=== PATIENT | male | born 1945 | race Caucasian/White ===

== ENCOUNTER 2024-02-11 01:06 | Inpatient (IN) | payer MEDICARE, OTHER ==
[2024-02-11] VITALS (57 sets, daily range): BP systolic 87–129; BP diastolic 42–71; PULSE 62–99; RESP 15–24; TEMP 98.1–99.2; O2SAT 92–100
[~2024-02-11] VITALS: Ht 175.3 cm; Wt 117.9 kg
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
[2024-02-11] MEDS: HALOPERIDOL LACTATE 5 MG/ML INJ VIAL IM ONE (01:51)
[2024-02-11 02:32] LABS: Basophils # (auto) 0.1 10 ^3/uL (0-0.2); Basophils % (auto) 0.6 % (0.0-2.0); Eosinophils # (auto) 0.2 10 ^3/uL (0-0.8); Eosinophils % (auto) 2.3 % (0.0-7.0); Hematocrit 46.2 % (41.0-53.0); Hemoglobin 15.1 g/dL (13.5-17.5); Lymphocytes # (auto) 1.6 10 ^3/uL (0.4-5.4); Lymphocytes % (auto) 16.2 % (10.0-50.0); Mean Corpuscular Hgb Conc. 32.7 g/dL (32.0-36.0); Mean Corpuscular Volume 91.8 fL (80.0-100.0); Monocytes # (auto) 0.6 10 ^3/uL (0-1.3); Monocytes % (auto) 5.8 % (0.0-12.0); Neutrophils # (auto) 7.6 10 ^3/uL (1.6-8.6); Neutrophils % (auto) 75.1 % (37.0-80.0); Nucleated Red Blood Cells % 0.1 %; Platelet Count (auto) 356 10^3/uL (140-450); Red Blood Cells 5.03 10^6/uL (4.5-5.90); White Blood Cell 10.1 10^3/uL (4.4-10.8)
--- NOTE | 2024-02-11 02:45 | DVH ---
Examination: CXRP Clinical Indication: ams Comparison: None. Technique: Frontal radiograph of the chest was obtained. Findings: Inhomogeneous radiopacities in left lower lung, suggestive of patchy consolidation. Prominent bronchovascular markings in both lungs. No pleural effusion on either side in current study. There is no pneumothorax. No evidence of cardiomegaly. No acute osseous abnormality is seen. Impression: Patchy consolidation in the left lower lobe. Electronically Signed 02/11/2024 02:37 Rudy Dimas
[2024-02-11 02:54] LABS: Chloride 104 mmol/L (98-107); Potassium 4.6 mmol/L (3.5-5.1); Sodium 137 mmol/L (136-145)
[2024-02-11 02:55] LABS: Anion Gap 4 (5-15); Carbon Dioxide 29 mmol/L (20-31)
[2024-02-11 02:56] LABS: Calcium 9.3 mg/dL (8.7-10.4)
[2024-02-11 03:00] LABS: BUN/Creatinine Ratio 7.4 (10.0-20.0); Blood Urea Nitrogen 9 mg/dL (9-23); Glucose 167 mg/dL (74-106)
[2024-02-11] MEDS ORDERED: VANCOMYCIN 1GM/250ML KIT 200 ML IV ONE (03:00)
--- NOTE | 2024-02-11 03:02 | DVH ---
Critical Findings Examination: HWOCT CLINICAL INDICATION: ams COMPARISON: None. CONTRAST USED: None. TECHNIQUE: The examination was performed obtaining 5 mm slices without contrast. CT scan was done a ccording to ALARA (As Low as Reasonably Achievable). Multiplanar reconstructions were obtained. FINDINGS: Limited evaluation due to motion artifacts. SUPRATENTORIAL BRAIN: Cerebral Hemispheres: There is no midline shift or mass effect, intra or extra-axial fluid collections or hemorrhage. Prominent sulcal - gyral pattern and cisternal spaces in both cerebral hemispheres, suggestive of cer ebral atrophy, likely age-related. Periventricular White Matter/Basal Ganglia: No abnormal areas of altered attenuation within the basal ganglia. Diffuse hypodensities noted in periventricular deep white matter of bilateral cerebral hemispheres, s uggestive of chronic periventricular ischemic changes. POSTERIOR FOSSA: Well-defined hypodensity of approximate size 10 x 8 mm in the simon on the left side, concerning for a cute infarct. Prominent cerebellar folia suggestive of cerebellar atrophy, likely age-related. VENTRICULAR SYSTEM: The ventricular system is normal in size. There is no evidence of hydrocephalus or transependymal flow of cerebrospinal fluid. SKULL BASE AND PARASELLAR REGION:The skull base is normal with no parasellar masses or abnormalities identified. CALVARIUM AND SCALP REGION: No abnormality is seen. PARANASAL SINUSES: No significant inflammatory changes are identified in the visualized paranasal sinuses. IMPRESSION: 1. Well-defined hypodensity of approximate size 10 x 8 mm in the simon on the left side, concerning f or acute infarct. 2. Chronic periventricular ischemic changes. 3. Cerebral and cerebellar atrophy, likely age-related. 4. Chronic and / or ancillary findings as described above. 5. Advised further evaluation with MRI brain without contrast. Electronically Signed 02/11/2024 02:55 Rudy Dimas
[2024-02-11] MEDS: AZITHROMYCIN 500MG/ 250ML 250 ML IV ONE (03:36)
[2024-02-11] MEDS: VANCOMYCIN 1GM/250ML KIT 200 ML IV SCH (03:40)
[2024-02-11] MEDS: LORazepam 2MG/ML-1ML VIAL IV ONE (05:30)
[2024-02-11] MEDS: CEFEPIME 2GM/50ML NS 50 ML IV ONE (05:39)
--- NOTE | 2024-02-11 06:33 | ECG ---
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
[2024-02-11] MEDS: MAGNESIUM SULFATE 1GM/100ML 100 ML IV ONE (08:08)
[2024-02-11 08:48] LABS: Urine Bacteria None Seen /hpf (None Seen)
[2024-02-11 09:06] LABS: Urine Blood Negative /uL (Negative); Urine Clarity Clear (Clear); Urine Color Light-Yellow (Yellow); Urine Protein, UAD Negative (Negative); Urine Specific Gravity 1.012 (1.001-1.035); Urine Urobilinogen Normal (Negative); Urine WBC <1 /hpf (0 - 3)
[2024-02-11 09:22] LABS: Amphetamine Screen, Urine Neg (NEGATIVE)
[2024-02-11] MEDS: ROCURONIUM 10MG/ML 10ML VIAL IV ONE ×2 (09:22→09:25)
[2024-02-11 09:23] LABS: Barbiturate Scree,Urine Neg (NEGATIVE); Benzodiazephine Screen, Urine Neg (NEGATIVE); Cannabinoid Screen, Urine Neg (NEGATIVE); Cocaine Screen, Urine Neg (NEGATIVE); Opiate Scree,Urine Neg (NEGATIVE); Phencyclidine Screen, Urine Neg (NEGATIVE)
[2024-02-11] MEDS: ETOMIDATE (2MG/ML) 20ML VIAL IV ONE ×2 (09:23→09:24)
[2024-02-11] MEDS: FUROSEMIDE 40 MG/4 ML VIAL IV ONE (09:25)
[2024-02-11] MEDS ORDERED: ONDANSETRON HCL 4 MG/2 ML VIAL IV PRN (10:00)
[2024-02-11] MEDS ORDERED: MORPHINE SULFATE INJ 2 MG/ml SYRG IV PRN (10:00)
[2024-02-11] MEDS ORDERED: NITROGLYCERIN 0.4 MG SL TAB SL PRN (10:00)
[2024-02-11] MEDS: MIDAZOLAM DRIP 50 mg/50mL 50 ML IV SCH (10:01)
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
[2024-02-11] MEDS: ENOXAPARIN SOD 40 MG/0.4 ML SYRINGE SC SCH (10:22)
[2024-02-11] MEDS: fentaNYL Drip 2500mCg/250mlNS 250 ML IV SCH (10:28)
[2024-02-11 13:54] LABS: Base Excess 1.1 mmol/L (-2.0-3.0)
[2024-02-11] MEDS: SODIUM CHLOR 0.9% PF (SALINE LOCK) 10ML VIAL/SYR IV SCH (14:00)
--- NOTE | 2024-02-11 14:01 | DVHINCON2 ---
Date of service: Feb 11, 2024 Referring Physician GIORGI Huffman Reason for Consultation Acute hypoxic respiratory failure, Mechanical ventilator management History of Present Illness 78-year-old man with unknown medical history who was brought in by EMS due to hypertension. He was found outside a convenience store. EMS was called. He was found to be hypertensive. He was currently intubated on mechanical ventilator. History is obtained from EMR, RN and MD caring for patient. Pulmonary consultation is called due to acute hypoxic respiratory failure on mechanical ventilator management. Review of systems: Unable to be obtained due to patient's critical condition. Past medical history: Hypertension, obesity Past surgical history: Unable to be obtained due to patient's critical condition. Medications: Reviewed Allergies: No known drug allergies. Family history: Unable to be obtained due to patient's critical condition. Social history: Unable to be obtained due to patient's critical condition. Allergies: Coded Allergies: NO KNOWN ALLERGIES (Unverified , 02/11/24) Current Medications Current Medications Medications (Trade) Dose Ordered Sig/Theodora Route PRN Reason Start Time Stop Time Status Last Admin Vancomycin HCl 200 ml @ 200 mls/hr Q1H IV 02/11/24 03:15 02/11/24 05:14 DC 02/11/24 04:47 Midazolam HCl 50 ml @ 1 mls/hr Q24H IV 02/11/24 09:15 02/11/24 12:54 Sodium Chloride (Saline Lock Ns) 10 ml Q8HR IV 02/11/24 14:00 Ondansetron HCl (Zofran) 4 mg Q4HP PRN IV NAUSEA / VOMITING 02/11/24 10:00 Enoxaparin Sodium (Lovenox) 40 mg DAILY SC 02/11/24 10:00 02/11/24 10:22 Nitroglycerin (Ntrostat Sublingual) 0.4 mg Q5MINP PRN SL FOR CHEST PAIN 02/11/24 10:00 Morphine Sulfate 2 mg Q30M PRN IV FOR CHEST PAIN 02/11/24 10:00 Fentanyl Citrate 250 ml @ 2.5 mls/hr Q24H IV 02/11/24 10:15 02/11/24 10:28 Vital Signs Vital Signs Date Time Temp Pulse Resp B/P (MAP) Pulse Ox O2 Delivery O2 Flow Rate FiO2 02/11/24 12:54 122/59 02/11/24 11:45 88 18 98 100 02/11/24 07:30 98.2 98.2 02/11/24 07:30 Simple Mask* 10 Physical Exam Gen.: Patient lying in bed in medical ICU. Sedated, intubated on mechanical ventilator. Head: Normocephalic, atraumatic. Eyes: PERRLA. Ears: Normal external anatomy. Throat: Endotracheal tube and orogastric tube in place. Neck: Supple, trachea midline. Chest: Transmitted breath sounds bilaterally. Decreased air entry bilaterally. No wheezing. Bibasilar crackles. Cardio vascular: Positive S1, positive S2. Regular rate and rhythm. Abdomen: Positive bowel sounds in all 4 quadrants. Soft, nontender, nondistended. : Sanders in place. Normal external genitalia. Rectal: Deferred Skin: Warm, dry. Intact. Extremities: 2+ radial pulses bilaterally. No lower extremity edema. Neuro: Sedated. Labs/Diagnostic Data Labs Test 02/11/24 10:44 02/11/24 08:30 02/11/24 05:10 02/11/24 03:19 Range/Units Blood Gas Specimen Type Arterial Blood Gas Sample Site Right radial Blood Gas Patient Temperature 37.0 Arterial Blood Date Drawn [id number] Arterial Blood pH 7.287 L 7.350-7.450 Arterial Blood Partial Pressure CO2 63.4 *H 35.0-48.0 mmHg Arterial Blood Partial Pressure O2 80.3 L 83.0-108.0 mmHg Arterial Blood HCO3 29.6 H 21.0-28.0 mmol/L Arterial Blood Oxygen Saturation 94.7 94.0-98.0 % Arterial Blood Base Excess 1.1 -2.0-3.0 mmol/L Arterial Blood Oxyhemoglobin 92.0 L 94.0-98.0 % Arterial Blood Carboxyhemoglobin 2.2 H 0.5-1.5 % Arterial Blood Methemoglobin 0.7 0.0-1.5 % Rashaun Test Modified Blood Gas Total Hemoglobin 15.70 13.5-17.5 g/dL Blood Gas Set Respiration Rate 18.0 Blood Gas Modality Vent - ac FiO2 % 100.0 Blood Gas Tidal Volume 550.0 Blood Gas PEEP or CPAP 5.0 Blood Gas Critical Value Read Back Yes Blood Gas Notified Whom juan pablo Ramirez md Blood Gas Notified Time [id number] Blood Gas Notified By Duncan hannon Urine Color Light-yellow Yellow Urine Clarity Clear Clear Urine pH 6.0 5.0-9.0 Urine Specific [place] 1.012 1.001-1.035 Urine Protein Negative Negative Urine Ketones Negative Negative Urine Blood Negative Negative /uL Urine Nitrite Negative Negative Urine Bilirubin Negative Negative Urine Urobilinogen Normal Negative mg/dL Urine Leukocyte Esterase Negative Negative /uL Urine RBC None seen 0 - 3 /hpf Urine WBC <1 0 - 3 /hpf Urine Squamous Epithelial Cells None seen <5 /hpf Urine Bacteria None seen None Seen /hpf Urine Glucose Normal Normal mg/dL Urine Opiates Screen Neg NEGATIVE Urine Fentanyl Screen Neg NEGATIVE Urine Barbiturates Screen Neg NEGATIVE Urine Phencyclidine Screen Neg NEGATIVE Urine Amphetamines Screen Neg NEGATIVE Urine Benzodiazepines Screen Neg NEGATIVE Urine Cocaine Screen Neg NEGATIVE Urine Cannabinoids Screen Neg NEGATIVE Lactic Acid Level 1.1 0.4-2.0 mmol/L White Blood Count 10.1 4.4-10.8 10^3/uL Red Blood Count 5.03 4.5-5.90 10^6/uL Hemoglobin 15.1 13.5-17.5 g/dL Hematocrit 46.2 41.0-53.0 % Mean Corpuscular Volume 91.8 80.0-100.0 fL Mean Corpuscular Hemoglobin 30.0 28.0-32.0 pg Mean Corpuscular Hemoglobin Concent 32.7 32.0-36.0 g/dL Red Cell Distribution Width 15.0 H 11.8-14.3 % Platelet Count 356 140-450 10^3/uL Mean Platelet Volume 7.4 6.9-10.8 fL Neutrophils (%) (Auto) 75.1 37.0-80.0 % Lymphocytes (%) (Auto) 16.2 10.0-50.0 % Monocytes (%) (Auto) 5.8 0.0-12.0 % Eosinophils (%) (Auto) 2.3 0.0-7.0 % Basophils (%) (Auto) 0.6 0.0-2.0 % Neutrophils # (Auto) 7.6 1.6-8.6 10 ^3/uL Lymphocytes # (Auto) 1.6 0.4-5.4 10 ^3/uL Monocytes # (Auto) 0.6 0-1.3 10 ^3/uL Eosinophils # (Auto) 0.2 0-0.8 10 ^3/uL Basophils # (Auto) 0.1 0-0.2 10 ^3/uL Nucleated Red Blood Cells 0.1 % Test 02/11/24 02:19 Range/Units Sodium Level 137 136-145 mmol/L Potassium Level 4.6 3.5-5.1 mmol/L Chloride Level 104 98-107 mmol/L Carbon Dioxide Level 29 20-31 mmol/L Anion Gap 4 L 5-15 Blood Urea Nitrogen 9 9-23 mg/dL Creatinine 1.21 0.700-1.30 mg/dL Glomerular Filtration Rate Calc 61 >90 mL/min BUN/Creatinine Ratio 7.4 L 10.0-20.0 Serum Glucose 167 H 74-106 mg/dL Calcium Level 9.3 8.7-10.4 mg/dL Troponin I High Sensitivity 5 </=54 ng/L Assessment Impression: Acute hypoxic respiratory failure secondary to pneumonia and CHF exacerbation Acute on chronic hypercarbic respiratory failure Acute respiratory distress syndrome On mechanical ventilator Pneumonia, likely Gram-negative CHF exacerbation Pulmonary edema Obesity with a BMI of 32.6 Acute stroke Plan: s/p intubation on mechanical ventilator CT head notable for hypodense pretty 10 x 8 mm in size in the simon with the left side from strenuous for acute infarct. Chronic periventricular ischemic changes. Cerebral and cerebellar atrophy likely age-related. Recommend neurology evaluation. CXR image and report reviewed. Devices in place. Cardiomegaly. Small left pleural effusion. Diffuse interstitial opacities likely pulmonary edema. Initial ABG was notable for acute on chronic hypercarbic respiratory failure, PaCO2 63.4 mmHg Repeat ABG reviewed. Compensated. Poor PF ratio. Currently on assist control with a respiratory rate of 18, tidal volume 550, peep of five, FiO2 at 100%. Increase respiratory rate to 22, peep to eight. Repeat ABG note compensation. Titrate FIO2 to keep O2 saturation above 92%. VAP bundle Daily ABG and CXR while intubated. Sedate for ventilatory synchrony Start pressors if necessary for hemodynamic support. Titrate to keep MAP above 65 mmHg/SBP above 90 mmHg. Continue antibiotics. F/u cultures. Diurese to euvolemia. Monitor ins/outs. On Lasix BID. Monitor renal function due to Acute kidney injury. Monitor electrolytes. Supplement as necessary. Nutritional support. Accucheks, ISS. GI/DVT prophylaxis. Condition: Critical Prognosis: Poor given multiple comorbidities. Rest of plan per hospitalist and other consultants. A total of 36 minutes of critical care time was spent reviewing the patient record, examining the patient, making a diagnostic and therapeutic plan, discussing this plan with the medical personnel, following up on diagnostic studies and following the patient for clinical stability excluding any and all procedures. At least 50% of this time was spent in direct, [id number] contact. Thank you GIORGI Huffman for allowing me to participate in this patient's care. Further recommendations will depend on patient's clinical course. Please do not hesitate to contact me if you have any questions or concerns. This medical document was created using an electronic medical record system with [email or web address] computerized dictation system. Although this document has been carefully reviewed, there may still be some phonetic and typographical errors. These areas are purely typographical due to imperfections of the software programs, and do not reflect any compromise in the patient's medical care. Plan discussed with: Other (JESUS Chavez, RT GIORGI Chacon) ALEXANDER SCHWAB MD Feb 11, 2024 14:01
[2024-02-11 14:07] LABS: Triglycerides 190 mg/dL (< 150)
[2024-02-11 14:08] LABS: LDL Cholesterol 109 mg/dL (< 100)
[2024-02-11 14:09] LABS: Cholesterol 171 mg/dL (< 200); HDL Cholesterol 42 mg/dL (40-59)
--- NOTE | 2024-02-11 14:22 | DVHINCON2 ---
Date Seen: Feb 11, [address] Huffman Reason for Consultation fluid overload, possible chf exacerbation History of Present Illness 78-year-old male patient with unknown medical history, who was brought see emergency department with altered level of consciousness and hypertension (blood pressure in the 190/110). It is documented that he told EMS that he is traveling but his car broke down. Patient's oxygen saturation went down until 85% o2 for which he was intubated and sedated. There is no family, and contacts for family documented in chart, patient has not been seen at this facility prior.Chest x- ray showed small left pleural effusion and diffuse interstitial opacity which may reflect pulmonary edema, BNP levels were mildly elevated 109, hemoglobin A1c was 7.8 and ABG showed respiratory acidosis with the pH on 7.2 (currently on 7.368). Patient echocardiogram showed ejection fraction on 60% an EKG showed sinus rhythm. Patient is currently on diuresis with furosemide 20 mg b.i.d. IV. D-dimer was also elevated on 1.70. Past Medical History Type 1 obesity Type 2 diabetes Hyperlipidemia Other past medical history unknown Past Surgical History Unknown Allergies: Coded Allergies: NO KNOWN ALLERGIES (Unverified , 02/11/24) Current Medications Current Medications Medications (Trade) Dose Ordered Sig/Theodora Route PRN Reason Start Time Stop Time Status Last Admin Vancomycin HCl 200 ml @ 200 mls/hr Q1H IV 02/11/24 03:15 02/11/24 05:14 DC 02/11/24 04:47 Midazolam HCl 50 ml @ 1 mls/hr Q24H IV 02/11/24 09:15 02/11/24 12:54 Sodium Chloride (Saline Lock Ns) 10 ml Q8HR IV 02/11/24 14:00 Ondansetron HCl (Zofran) 4 mg Q4HP PRN IV NAUSEA / VOMITING 02/11/24 10:00 Enoxaparin Sodium (Lovenox) 40 mg DAILY SC 02/11/24 10:00 02/11/24 10:22 Nitroglycerin (Ntrostat Sublingual) 0.4 mg Q5MINP PRN SL FOR CHEST PAIN 02/11/24 10:00 Morphine Sulfate 2 mg Q30M PRN IV FOR CHEST PAIN 02/11/24 10:00 Fentanyl Citrate 250 ml @ 2.5 mls/hr Q24H IV 02/11/24 10:15 11/6/24 10:28 Furosemide (Lasix Injection) 20 mg BIDD IV 02/11/24 18:00 UNV Azithromycin 250 ml @ 125 mls/hr DAILY IV 02/12/24 10:00 UNV Vital Signs Vital Signs Date Time Temp Pulse Resp B/P (MAP) Pulse Ox O2 Delivery O2 Flow Rate FiO2 02/11/24 14:00 88 18 122/59 98 100 02/11/24 07:30 98.2 98.2 02/11/24 07:30 Simple Mask* 10 Physical Exam Examination General Appearance: Patient is intubated Respiratory: Crackles bilaterally Cardiovascular: Regular rate, Normal S1, Normal S2 Abdominal: Markedly distended, no rebound or guarding, bowel sounds absent Extremities: No cyanosis, bilateral lower extremity edema 3+, Normal pulses Skin: Rash in the lower abdomen Labs/Diagnostic Data Labs Test 02/11/24 10:44 02/11/24 08:30 02/11/24 05:10 02/11/24 03:19 Range/Units Blood Gas Specimen Type Arterial Blood Gas Sample Site Right radial Blood Gas Patient Temperature 37.0 Arterial Blood Date Drawn [id number] Arterial Blood pH 7.287 L 7.350-7.450 Arterial Blood Partial Pressure CO2 63.4 *H 35.0-48.0 mmHg Arterial Blood Partial Pressure O2 80.3 L 83.0-108.0 mmHg Arterial Blood HCO3 29.6 H 21.0-28.0 mmol/L Arterial Blood Oxygen Saturation 94.7 94.0-98.0 % Arterial Blood Base Excess 1.1 -2.0-3.0 mmol/L Arterial Blood Oxyhemoglobin 92.0 L 94.0-98.0 % Arterial Blood Carboxyhemoglobin 2.2 H 0.5-1.5 % Arterial Blood Methemoglobin 0.7 0.0-1.5 % Rashaun Test Modified Blood Gas Total Hemoglobin 15.70 13.5-17.5 g/dL Blood Gas Set Respiration Rate 18.0 Blood Gas Modality Vent - ac FiO2 % 100.0 Blood Gas Tidal Volume 550.0 Blood Gas PEEP or CPAP 5.0 Blood Gas Critical Value Read Back Yes Blood Gas Notified Whom juan pablo Ramirez md Blood Gas Notified Time [id number] Blood Gas Notified By Roofing Machine Tender suzette hannon Urine Color Light-yellow Yellow Urine Clarity Clear Clear Urine pH 6.0 5.0-9.0 Urine Specific [place] 1.012 1.001-1.035 Urine Protein Negative Negative Urine Ketones Negative Negative Urine Blood Negative Negative /uL Urine Nitrite Negative Negative Urine Bilirubin Negative Negative Urine Urobilinogen Normal Negative mg/dL Urine Leukocyte Esterase Negative Negative /uL Urine RBC None seen 0 - 3 /hpf Urine WBC <1 0 - 3 /hpf Urine Squamous Epithelial Cells None seen <5 /hpf Urine Bacteria None seen None Seen /hpf Urine Glucose Normal Normal mg/dL Urine Opiates Screen Neg NEGATIVE Urine Fentanyl Screen Neg NEGATIVE Urine Barbiturates Screen Neg NEGATIVE Urine Phencyclidine Screen Neg NEGATIVE Urine Amphetamines Screen Neg NEGATIVE Urine Benzodiazepines Screen Neg NEGATIVE Urine Cocaine Screen Neg NEGATIVE Urine Cannabinoids Screen Neg NEGATIVE Lactic Acid Level 1.1 0.4-2.0 mmol/L White Blood Count 10.1 4.4-10.8 10^3/uL Red Blood Count 5.03 4.5-5.90 10^6/uL Hemoglobin 15.1 13.5-17.5 g/dL Hematocrit 46.2 41.0-53.0 % Mean Corpuscular Volume 91.8 80.0-100.0 fL Mean Corpuscular Hemoglobin 30.0 28.0-32.0 pg Mean Corpuscular Hemoglobin Concent 32.7 32.0-36.0 g/dL Red Cell Distribution Width 15.0 H 11.8-14.3 % Platelet Count 356 140-450 10^3/uL Mean Platelet Volume 7.4 6.9-10.8 fL Neutrophils (%) (Auto) 75.1 37.0-80.0 % Lymphocytes (%) (Auto) 16.2 10.0-50.0 % Monocytes (%) (Auto) 5.8 0.0-12.0 % Eosinophils (%) (Auto) 2.3 0.0-7.0 % Basophils (%) (Auto) 0.6 0.0-2.0 % Neutrophils # (Auto) 7.6 1.6-8.6 10 ^3/uL Lymphocytes # (Auto) 1.6 0.4-5.4 10 ^3/uL Monocytes # (Auto) 0.6 0-1.3 10 ^3/uL Eosinophils # (Auto) 0.2 0-0.8 10 ^3/uL Basophils # (Auto) 0.1 0-0.2 10 ^3/uL Nucleated Red Blood Cells 0.1 % Test 02/11/24 02:19 Range/Units Sodium Level 137 136-145 mmol/L Potassium Level 4.6 3.5-5.1 mmol/L Chloride Level 104 98-107 mmol/L Carbon Dioxide Level 29 20-31 mmol/L Anion Gap 4 L 5-15 Blood Urea Nitrogen 9 9-23 mg/dL Creatinine 1.21 0.700-1.30 mg/dL Glomerular Filtration Rate Calc 61 >90 mL/min BUN/Creatinine Ratio 7.4 L 10.0-20.0 Serum Glucose 167 H 74-106 mg/dL Hemoglobin A1c 7.8 H <5.7 % A1C Calcium Level 9.3 8.7-10.4 mg/dL Troponin I High Sensitivity 5 </=54 ng/L Triglycerides Level 190 H < 150 mg/dL Cholesterol Level 171 < 200 mg/dL LDL Cholesterol 109 H < 100 mg/dL HDL Cholesterol 42 40-59 mg/dL Assessment Patient is on mechanical ventilation Acute ischemic stroke Lower extremity edema likely due to ?CHF exacerbation ?Ascites Severe abdominal distention likely due to?Ileus ?Nicotine dependency Plan/Recommendation Continue on mechanical ventilation Conservative management, prioritize treating the underlying condition as a possible cause of the exacerbation of the symptoms Echocardiogram showed 60% ejection fraction and EKG shows sinus rhythm Furosemide 20 mg IV b.i.d. Monitor I&Os Sanders catheter in place Continue antibiotics per hospitalist Thank you for allowing us participate in this case, there is no further workup indicated at this time, we are signing off Case discussed with Critical care, time spent: 62 minutes Plan discussed with: Patient Date of Service: Feb 11, 2024 Billing Provider: NATALIIA SANDS MD Cardiology Common Codes: 35456-[id number] INP/OBS CARE (High) GISELA QUINTANILLA RESIDENT Feb 11, 2024 14:22
--- NOTE | 2024-02-11 14:26 | DVH ---
Carotid Duplex Date: 02/11/2024 01:51 PM Clinical History: stroke Comparison: CT head 02/11/2024 Technique: Duplex Doppler evaluation of the extracranial carotid and vertebral arteries including color Doppler and spectral/pulsed waveform analysis was performed. Findings: RIGHT SIDE: The peak systolic velocities are 103 cm/s in the distal CCA and 109 cm/s in the proximal ICA.The ICA/ CCA ratio is normal. The external carotid artery is patent with peak systolic velocity of 97 cm/s proximally. There is appropriate antegrade flow in the right vertebral artery. LEFT SIDE: The peak systolic velocities are 65 cm/s in the distal CCA and 133 cm/s in the proximal ICA.. The IC A/CCA ratio is 2 . The external carotid artery is patent with peak systolic velocity of 100 cm/s proximally. There is appropriate antegrade flow in the left vertebral artery. IMPRESSION: 1. 50-69% stenosis at the level of the left proximal ICA. 2. No hemodynamically significant stenosis noted in the right carotid system. 3. Reference: Radiology 2003; [id number] HS:Y
--- NOTE | 2024-02-11 14:39 | DVH ---
EXAM: XY CHEST PORTABLE Indication:chest x ray post intubation Technique: Single frontal view of the chest was obtained Comparison: XY CHEST PORTABLE on DOS: 02/11/24 FINDINGS: Lines and Tubes: Endotracheal tube projects 3.9 cm above level of the [place]. Enteric tube tip proje cts over the expected region of the stomach. Right internal jugular central venous catheter tip proj ects over the superior vena cava. Lungs: Diffuse interstitial opacities. Pleura: Small left pleural effusion. No pneumothorax. Cardiomediastinal contours: Cardiomegaly. Bones: No acute osseous abnormality. IMPRESSION: Lines and tubes in appropriate position. Cardiomegaly with small left pleural effusion and diffuse in terstitial opacities which may reflect pulmonary edema.
[2024-02-11 15:28] LABS: INR 1.01 (0.9-1.15); Prothrombin Time 10.7 sec (9.3-11.8)
--- NOTE | 2024-02-11 16:36 | DVHSR ---
APPROVED REPORT EXAM: Two-dimensional and M-mode echocardiogram with Doppler and color Doppler. Blood Pressure: 117/83 mmHg INDICATION Heart Failure RISK FACTORS Height: 5'9", Weight: 220 DIMENSIONS LVDd4.3 (3.8-5.7cm)LA (2D)4.2 (1.9-4.0cm)Aortic Root3.3 (2.0-3.7cm) LVDs2.4 (2.5-4.0cm)LA (MM) (1.9-4.0cm)Aortic Cusp Exc0.9 (1.5-2.0cm) EF (%) 77.0 (55-70%)Rt. Atrium4.1 (1.9-4.0cm)Asc. Aorta cm IVSd1.7 (0.7-1.1cm)RV (D) (1.8-2.4cm) Mitral Valve MitralMitral Stenosis E wave0.81m/sMV Mean GR.mmHg A wave1.17m/sMV Peak GR.mmHg E/A ratio0.72D MVAcm2 DECEL [id number] 1/2 Timems Aortic Valve Aortic ValveAortic Stenosis V11.51m/Mame Mean GR.18mmHg V22.81m/Mame Peak GR.32mmHg LVOT Diameter2.2 (1.8-2.4cm)Doppler AVA2.04cm2 2D AVA1.42cm2 Other Information Quality : ExcellentTechnically LimitedRhythm : Technically limited study due to body habitus and on vent Conclusion Normal left ventricular size and dimension. Normal left ventricular systolic function estimated ejec tion fraction 60%. There is a grade 1 diastolic dysfunction. Normal right ventricular size and dimension. Normal right ventricular systolic function. Normal biatrial size and dimension. The aortic valve is thickened and sclerotic there is [id number]-qg-[id number] aortic valve stenosis with a pe ak gradient of33 and mean gradient of 18 mm of mercury. The mitral valve is mildly thickened there is mild mitral valve regurgitation. There is mild tricuspid valve regurgitation. The pulmonary valve is grossly normal. No pericardial effusion.
[2024-02-11 16:39] LABS: Base Excess 4.1 mmol/L (-2.0-3.0)
--- NOTE | 2024-02-11 17:58 | DVH ---
EXAM: XY KUB ABDOMEN SINGLE VIEW HISTORY: r/o ileus COMPARISON: None TECHNIQUE: Single AP of the abdomen and pelvis was obtained. Findings: Frontal view of the abdomen demonstrates a paucity of bowel gas. No visualized renal calculi. There i s no evidence of an acute fracture, dislocation, blastic, or lytic lesions. The visualized portions of the lung bases are unremarkable. Enteric tube overlying the plane of the stomach. No superficial soft tissue abnormalities. Impression: 1. Paucity of bowel gas. Cannot exclude fluid filled loops of dilated bowel. 2. No visualized renal calculi.
[2024-02-11] MEDS: NOREPINEPHRINE 8 MG/250ML KIT 250 ML IV SCH (19:05)
[2024-02-11 19:08] LABS: Potassium 4.4 mmol/L (3.5-5.1)
[2024-02-11 19:14] LABS: Magnesium 1.9 mg/dL (1.6-2.6)
[2024-02-11] MEDS: FUROSEMIDE 20 MG/2 ML VIAL IV SCH (19:28)
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
--- NOTE | 2024-02-11 23:04 | DVH ---
RIGHT LOWER EXTREMITY VENOUS DOPPLER ULTRASOUND CLINICAL HISTORY: BRIGHT RED RIGHT LOWER EXTREMITY AND IS HOT TO TOUCH COMPARISON: None TECHNIQUE: Grayscale ultrasound with compression, Color Doppler flow and duplex spectral Doppler son ography of the right lower extremity femoral popliteal deep venous system is performed. FINDINGS: Right common femoral vein: Negative. Right greater saphenous vein: Negative. Right deep femoral vein: Negative. Right femoral vein: Negative. Right popliteal vein: Negative. Other: Visualized popliteal trifurcation and posterior tibial vein demonstrate color flow. Subcutaneo us edema noted in the lower leg. IMPRESSION: No sonographic evidence of deep venous thrombosis in the right lower extremity at this time.
[2024-02-12] VITALS (107 sets, daily range): BP systolic 86–133; BP diastolic 32–63; PULSE 58–71; RESP 14–32; TEMP 97.8–99; O2SAT 63–100
[2024-02-12 04:00] LABS: Basophils # (auto) 0.1 10 ^3/uL (0-0.2); Basophils % (auto) 1.3 % (0.0-2.0); Eosinophils # (auto) 0.3 10 ^3/uL (0-0.8); Eosinophils % (auto) 4.3 % (0.0-7.0); Hematocrit 42.6 % (41.0-53.0); Lymphocytes # (auto) 1.4 10 ^3/uL (0.4-5.4); Lymphocytes % (auto) 17.6 % (10.0-50.0); Mean Corpuscular Hemoglobin 29.7 pg (28.0-32.0); Mean Corpuscular Hgb Conc. 32.8 g/dL (32.0-36.0); Mean Corpuscular Volume 90.3 fL (80.0-100.0); Monocytes # (auto) 0.5 10 ^3/uL (0-1.3); Monocytes % (auto) 6.2 % (0.0-12.0); Neutrophils # (auto) 5.7 10 ^3/uL (1.6-8.6); Neutrophils % (auto) 70.6 % (37.0-80.0); Nucleated Red Blood Cells % 0.1 %; Platelet Count (auto) 339 10^3/uL (140-450); Red Blood Cells 4.71 10^6/uL (4.5-5.90); Red Cell Distribution Width 15.1 % (11.8-14.3)
[2024-02-12 04:06] LABS: Alanine Aminotransferase 18 U/L (7-40); Albumin 3.3 g/dL (3.2-4.8); Alkaline Phosphatase 91 U/L (46-116); Anion Gap 3 (5-15); Aspartate Aminotransferase 14 U/L (13-40); Blood Urea Nitrogen 11 mg/dL (9-23); Carbon Dioxide 33 mmol/L (20-31); Chloride 103 mmol/L (98-107); Glucose 135 mg/dL (74-106); Phosphorus 2.5 mg/dL (2.4-5.1); Potassium 4.1 mmol/L (3.5-5.1); Sodium 139 mmol/L (136-145)
[2024-02-12 04:07] LABS: Bilirubin, Total 0.5 mg/dL (0.2-1.0); Total Protein 6.1 g/dL (5.7-8.2)
--- NOTE | 2024-02-12 05:57 | DVH ---
CHEST RADIOGRAPH Indication:INTUBATED Technique: Single frontal view of the chest was obtained Comparison: XY CHEST PORTABLE on DOS: 02/11/24 FINDINGS: Lines and Tubes: There is a right central venous catheter with its tip terminating in the superior ve na cava. The endotracheal tube terminates 3.8 cm above the elmira. Lungs: Bilateral interstitial opacities similar to prior study. Pleura: Stable left pleural effusion. No pneumothorax. Cardiomediastinal contours: Unremarkable Bones: No acute osseous abnormality. IMPRESSION: 1. Appropriate position of the support lines and tubes. 2. Interstitial pulmonary edema and left pleural effusion.
[2024-02-12 08:27] LABS: Base Excess 4.5 mmol/L (-2.0-3.0)
--- NOTE | 2024-02-12 08:58 | DVHPN2 ---
Progress Note - Dictate Date Seen: Feb 12, 2024 Medical Necessity Reason Pt with a Central, PICC or Fol: Yes The following are medically ne: Central Line, Sanders Catheter Subjective Mr. Glass is a 78 years old gentleman with a history of obesity, the patient was taken to the [facility] on 02/11/2024 with a chief company of elevated blood pressure. I have seen and examined the patient, I have discussed with his nurse and the medical staff, the patient was remained intubated, on sedation, but is respond to light painful stimuli No family contact is available Levo 2 mcg/minutes, Versed 6 mg/hour, fentanyl 50 mcg/hour, SaO2: 90% UDS, 02/11/2024: Negative Plasma alcohol, 02/11/2024: 3.4 Urinalysis, 02/11/2024: Unremarkable ABG, 02/11/2024: Respiratory acidosis CBC, 02/11/2024: Unremarkable BMP 02/11/2024: Unremarkable HCO3, 02/11/2024: 29, 02/12/2024, 33 Liver function tests, 02/12/2024: Normal HbA1c, 02/11/2024: 7.8 TG/Chol/LDL/LDL/HDL, 02/11/2024: 190/171/109/42 TSH, 02/11/2024: 4.29 Carotid Doppler, 02/11/2024: Normal left ventricular size and dimension. Normal left ventricular systolic function estimated ejection fraction 60%. There is a grade 1 diastolic dysfunction. Normal right ventricular size and dimension. Normal right ventricular systolic function. Normal biatrial size and dimension. The aortic valve is thickened and sclerotic there is [id number] aortic valve stenosis with a peak gradient of33 and mean gradient of 18 mm of mercury. The mitral valve is mildly thickened there is mild mitral valve regurgitation. There is mild tricuspid valve regurgitation. The pulmonary valve is grossly normal. No pericardial effusion. Carotid Doppler, 02/11/2024: 1. 50-69% stenosis at the level of the left proximal ICA. 2. No hemodynamically significant stenosis noted in the right carotid system. Chest x-ray, 02/11/2024: Lines and tubes in appropriate position. Cardiomegaly with small left pleural effusion and diffuse interstitial opacities which may reflect pulmonary edema CT head, 02/11/2024: 1. Well-defined hypodensity of approximate size 10 x 8 mm in the simon on the left side, concerning for acute infarct. 2. Chronic periventricular ischemic changes. 3. Cerebral and cerebellar atrophy, likely age-related. 4. Chronic and / or ancillary findings as described above. 5. Advised further evaluation with MRI brain without contrast. vital signs Vital Sign Date Time Temp Pulse Resp B/P (MAP) Pulse Ox O2 Delivery O2 Flow Rate FiO2 02/12/24 07:11 106/53 02/12/24 06:37 60 22 100 90 02/12/24 06:00 Mechanical Ventilator+ 02/12/24 04:00 98.5 98.5 02/11/24 07:30 10 Total Intake and Output 02/11/24 02/11/24 02/12/24 15:00 23:00 07:00 Intake Total 40 ml 102.00 ml 102.500 ml Output Total 3275 ml 1000 ml Balance 40 ml -3173.00 ml -897.500 ml medications Current Medications Medications Dose Ordered Sig/Theodoar Route Start Time Stop Time Status Last Admin Dose Admin Midazolam HCl 50 ml @ 1 mls/hr Q24H IV 02/11/24 09:15 02/12/24 07:11 6 MLS/HR Sodium Chloride 10 ml Q8HR IV 02/11/24 14:00 02/12/24 06:07 10 ML Ondansetron HCl 4 mg Q4HP PRN IV 02/11/24 10:00 Enoxaparin Sodium 40 mg DAILY SC 02/11/24 10:00 02/11/24 10:22 40 MG Nitroglycerin 0.4 mg Q5MINP PRN SL 02/11/24 10:00 Morphine Sulfate 2 mg Q30M PRN IV 02/11/24 10:00 Fentanyl Citrate 250 ml @ 2.5 mls/hr Q24H IV 02/11/24 10:15 02/11/24 10:28 2.5 MLS/HR Furosemide 20 mg BIDD IV 02/11/24 18:00 02/12/24 05:57 20 MG Azithromycin 250 ml @ 125 mls/hr DAILY IV 02/12/24 10:00 Norepinephrine Bitartrate 250 ml @ 3.75 mls/hr Q24H IV 02/11/24 18:15 02/11/24 19:05 3.75 MLS/HR Aspirin 300 mg DAILY [place] 02/12/24 10:00 Atorvastatin Calcium 40 mg HS PO 02/12/24 22:00 objective The patient is well-nourished and well-developed with no distress. The patient is intubated MENTAL STATUS: Respond to light painful stimuli CRANIAL NERVES: Pupils are equal, round and nonreactive, 1-2mm. There are corneal reflexes and doll's eyes phenomenon. No signs of facial weakness. There are gagging or coughing reflexes SENSATION: No responses to pain stimuli. MOTOR: Normal tone in the upper and lower extremity. Normal muscle bulk. No fasciculations. No spontaneous movement. REFLEXES: Deep tendon reflexes are symmetrical. No pathological reflexes. CEREBELLAR/COORDINATION: Deferred GAIT/STATION: deferred. laboratory and microbiology Laboratory Tests 02/12/24 03:07 Test 02/12/24 03:07 Range/Units Serum Glucose 135 H 74-106 mg/dL Problem List Altered mental status Hypoxic encephalopathy Metabolic encephalopathy Respiratory failure Hypertension emergency Respiratory acidosis Sepsis, ? Septic shock Pneumonia Cellulitis in the legs Stroke per CT head Left ICA moderate stenosis Assessment/Plan Monitoring Supportive treatments ICU care EEG Consider MRI brain scan later Stabilize vitals/pressor drip Respiratory support/vent management Blood culture IV antibiotics Aspirin 81 mg daily/300 mg suppository daily Lipitor 40 mg daily DVT prophylaxis Pulmonology evaluation Cardiology evaluation Social service on case More recommendation per clinical course This medical document was created using an electronic medical record system with [employer] dictation system. Although this document has been carefully reviewed, there may still be some phonetic and typographical errors. These areas are purely typographical due to imperfections of the software programs, and do not reflect any compromise in the patient's medical care. Prognosis guarded Plan discussed with: Other Critical Care Time(min): 35 TRAV CRUZ MD Feb 12, 2024 08:58
[2024-02-12] MEDS: AZITHROMYCIN 500MG/ 250ML 250 ML IV SCH (10:31)
[2024-02-12] MEDS: ASPirin 300 MG RECTAL SUPP PR SCH (10:40)
[2024-02-12] MEDS ORDERED: VANCOMYCIN PER PHARMACY 0 MG IV SCH (13:00)
[2024-02-12] MEDS: IOHEXOL 300 MG/ML 100ML BOTTLE IJ ONE (13:47)
--- NOTE | 2024-02-12 14:40 | DVH ---
CT CHEST, ABDOMEN AND PELVIS CLINICAL HISTORY: POSSIBLE PE, ABDOMINAL DISTENSION TECHNIQUE: Multiple contiguous axial images of the chest, abdomen and pelvis with intravenous contras t. The images were reformatted degenerate coronal and sagittal reconstructions. 100 cc of Omnipaque 300 contrast was injected intravenously. All CT scans at this medical facility are performed using dose modulation techniques as appropriate t o a performed exam including the following:Automated exposure control was utilized; adjustment of the MA and/or KV according to patient size; and use of iterative reconstruction technique. Radiation Dose Information: CT Dose: CTDI volume is 29 mGy. Dose-length product is 2156 mGy*cm FINDINGS: The contrast injection timing is not optimized for evaluation of the pulmonary arteries. Evaluation f or pulmonary embolism is limited on the current study. There is no obvious pulmonary arterial filling defect to suggest pulmonary embolism. There is an endotracheal tube in place terminating just above the [place]mira. Are moderate centrilobular emphysematous changes in the lungs. There are moderate size opacities with air bronchograms in the bi lateral lower lobes which may represent atelectasis versus airspace disease. There is similar smaller opacity in the right middle lobe. There is no suspicious appearing pulmonary nodule or mass. There i s no significant pleural effusion or pneumothorax. There are multiple mediastinal lymph nodes many of which are prominent in size measuring larger than a cm short axis. There is no obvious hilar or axillary lymphadenopathy. There is mild cardiomegaly. There are coronary artery calcifications. There is no significant pericar dial effusion. There is diffuse fatty infiltration of the liver . There is no suspicious appearing hepatic lesion. There is a nasogastric tube with tip terminating in the stomach. The gallbladder, pancreas, kidneys, adrenal glands, and spleen appear within normal limits. There is no evidence of abdominal lymphadenopathy. There is no free fluid or free air. The small and large bowel loops demonstrate normal caliber. There are scattered diverticula in the c olon without evidence of acute diverticulitis. There is infrarenal abdominal aortic aneurysm measuring 5.8 x 6.0 cm. The IVC appears within normal l imits. There is a Sanders catheter in the bladder which is collapsed. There is mild prostatomegaly.. There is no evidence of a pelvic mass or free fluid collection. There are small lymph nodes along the pelvic sidewalls and in the inguinal soft tissues which are not pathologic by size criteria. There is a sma ll fat containing right inguinal hernia. There is no acute osseous abnormality or suspicious appearing osseous lesion. IMPRESSION: 1. Contrast bolus injection timing is not optimized for evaluation of the pulmonary arteries limited evaluation for pulmonary embolism. There is no obvious pulmonary arterial filling defect to suggest p ulmonary embolism. 2. There are moderate size opacities with air bronchograms in the bilateral lower lobes which may rep resent atelectasis versus airspace disease. There is similar smaller opacity in the right middle lobe . Clinical correlation is recommended. 3. Moderate centrilobular emphysematous changes in the lungs. 4. There are multiple mediastinal lymph nodes many of which are prominent in size. The etiology is n onspecific. Metastatic lymphadenopathy in the appropriate clinical setting is not excluded. 5. Diffuse fatty infiltration of the liver. 6. Infrarenal abdominal aortic aneurysm measuring 5.8 x 6.0 cm. 7. Mild prostatomegaly. 8. Nonspecific subcentimeter lymph nodes along the pelvic sidewalls and in the inguinal soft tissues. HS:Y
[2024-02-12] MEDS: PANTOPRAZOLE 40 MG/10 ML VIAL INJ IV ONE (16:16)
[2024-02-12] MEDS: VANCOMYCIN 1GM/250ML KIT 200 ML IV SCH (16:17)
[2024-02-12] MEDS: CEFEPIME 1GM/ 50ML 50 ML IV ONE (18:54)
--- NOTE | 2024-02-12 21:04 | DVHPNRES ---
Progress Note Date Seen: Feb 12, 2024 Resident Creating Document: SAMANTHA RAMIREZ RESIDENT Medical Necessity Reason Pt with a Central, PICC or Fol: Yes The following are medically ne: Central Line, Sanders Catheter Subjective Review of Systems Patient is 78-year-old male with unknown medical history of brought to the hospital via EMS for hypertension and found to be outside at convenience store . During further evaluation emergency department, patient was diagnosed with acute stroke due to ischemia and pneumonia. Later patient was intubated on put on ventilator for worsening respiratory distress, protect of airway with diagnosis of acute stroke, pneumonia and CHF exacerbation. Past medical history: Unknown Past surgical history: Unknown Patient seen and examined in ICU department. Patient is currently on ventilator. Currently requiring vasopressor Levophed. No other night events notified. Objective vital signs Vital Sign Date Time Temp Pulse Resp B/P (MAP) Pulse Ox O2 Delivery O2 Flow Rate FiO2 02/12/24 20:07 68 22 97/33 (54) 95 65 02/12/24 20:00 Mechanical Ventilator+ 02/12/24 16:00 97.8 97.8 02/11/24 07:30 10 Total Intake and Output 02/11/24 02/11/24 02/12/24 15:00 23:00 07:00 Intake Total 40 ml 102.00 ml 117.250 ml Output Total 3275 ml 1000 ml Balance 40 ml -3173.00 ml -882.750 ml medications Current Medications Medications Dose Ordered Sig/Theodora Route Start Time Stop Time Status Last Admin Dose Admin Midazolam HCl 50 ml @ 1 mls/hr Q24H IV 02/11/24 09:15 02/12/24 16:16 6 MLS/HR Sodium Chloride 10 ml Q8HR IV 02/11/24 14:00 02/12/24 16:16 10 ML Enoxaparin Sodium 40 mg DAILY SC 02/11/24 10:00 02/12/24 10:35 40 MG Fentanyl Citrate 250 ml @ 2.5 mls/hr Q24H IV 02/11/24 10:15 02/12/24 11:46 5 MLS/HR Furosemide 20 mg BIDD IV 02/11/24 18:00 02/12/24 17:38 20 MG Azithromycin 250 ml @ 125 mls/hr DAILY IV 02/12/24 10:00 02/12/24 10:31 125 MLS/HR Norepinephrine Bitartrate 250 ml @ 3.75 mls/hr Q24H IV 02/11/24 18:15 02/12/24 18:59 3.75 MLS/HR Aspirin 300 mg DAILY [place] 02/12/24 10:00 02/12/24 10:40 300 MG Atorvastatin Calcium 40 mg HS PO 02/12/24 22:00 Cefepime HCl 50 ml @ 12.5 mls/hr Q8HR IV 02/12/24 22:00 Vancomycin HCl 0 ml @ 0 mls/hr UD IV 02/12/24 13:00 Pantoprazole Sodium 40 mg DAILY IV 02/13/24 10:00 Vancomycin HCl 250 ml @ 200 mls/hr Q12H IV 02/13/24 05:00 Examination General Appearance: RASS -3, sedated and on ventilation. Head Exam: Normal inspection Neck Exam: Normal inspection. Non-tender. Normal alignment Pulmonary/Respiratory: Chest non-tender. bilateral crackles over bilateral lung lobes. Cardiovascular/Chest: Regular rate and rhythm. No murmurs. No JVD. Peripheral Pulses: 2+ Radial (R). 2+ Radial (L). 2+ Pedal (R). 2+ Pedal (L) Abdominal Exam: Normal bowel sounds. Soft. Nontender. No hepatospenomegaly. No masses, distended abdomin, no fluid thrill. Ankle Exam: Negative ankle edema Lower extremities: 2+ lower extremity edema Neuro/Mental Status: Appropriate pupillary reflex, other cranial nerve can not be assessed. laboratory and microbiology Laboratory Tests 02/12/24 03:07 Test 02/12/24 03:07 Range/Units Serum Glucose 135 H 74-106 mg/dL Microbiology Date/Time Source Procedure Growth Status 02/11/24 13:06 Nose MRSA Screen - Final Complete 02/11/24 09:19 Sputum Gram Stain - Final Resulted 02/11/24 09:19 Sputum Respiratory Culture - Preliminary Resulted Problem List/Assessment/Plan Problem List/Assessment/Plan Acute stroke due to ischemia Acute hypercapnic hypoxic respiratory failure due to pneumonia and CHF Left lower lobe pneumonia Gram-positive/Gram-negative Septic shock due to pneumonia Acute CHF? diastolic ? ARDS Emphysema Pulmonary edema Hypertensive emergency Carotid artery stenosis: 50-69% stenosis left paroxysmal ICA DVT and PE ruled out Fatty liver Infrarenal aortic aneurysm:5.8 x 6.0 cm. Prostatomegaly Constipation Obesity Plan -on ventilator: AC/VC: Respiratory rate 18, tidal volume 550, FiO2 100%, peep 5. -ABG: PH 7.427, pCO2 46.2, HC03 29.8 -initiate antibiotic with cefepime, vancomycin, azithromycin. -on vasopressor Levophed: Target map greater than 65. -continue IV furosemide 20 mg b.i.d.. -echocardiogram: Left ventricular ejection fraction 60%, grade 1 diastolic dysfunction -neurology consultation: Aspirin, Lipitor, MRI, EEG. When stable. -cardiology consultation: Continue current management. -DVT prophylaxis: Lovenox -PUD prophylaxis: Protonix Critical care time spent greater than 82 minutes. -social service has been consulted given there is no family to reach out. Continue current management with mechanical ventilation, IV antibiotic, IV Lasix, aspirin, Lipitor, Lovenox and Protonix. Patient continued requiring vasopressor at this point, re-evaluate in a.m.. Plan discussed with Dr Mcknight Plan discussed with: Other (RN) My Orders My Orders Orders - SAMANTHA RAMIREZ Procedure Category Date Status Time Cefepime 1gm/ 50ml PHA 02/12/24 In Process (Maxipime 1gm/50ml) 22:00 Vancomycin Per PHA 02/12/24 In Process Pharmacy 13:00 Pantoprazole PHA 02/13/24 In Process (Protonix) 10:00 Blood Culture AMBER 02/12/24 In Process 12:46 Respiratory Culture AMBER 02/12/24 Logged W/ Gs 12:46 Urine Bacterial AMBER 02/12/24 Logged Culture 12:46 Vancomycin PHA 02/13/24 In Process 1.25gm/250ml 05:00 Vancomycin Per TELLY 02/13/24 In Process Pharmacy Protoc 17:00 Vancomycin,Trough LAB 02/13/24 Verified 16:00 Complete Blood Count LAB 02/13/24 Verified 04:00 Chest Xray 1 View XY 02/13/24 Logged 04:00 Abg W/ Co-Ox RT 02/13/24 Logged 04:00 Comprehensive LAB 02/13/24 Verified Metabolic Panel 04:00 Date of Service: Feb 12, 2024 Billing Provider: ESTELLE MCKNIGHT MD Common Visit Codes: [id number] CARE 30-74 MIN SAMANTHA RAMIREZ Feb 12, 2024 21:04 ESTELLE MCKNIGHT MD Feb 16, 2024 14:19
[2024-02-12] MEDS: CEFEPIME 1GM/ 50ML 50 ML IV SCH (21:42)
[2024-02-12] MEDS: ATORVASTATIN 20 MG TAB PO SCH (21:43)
[2024-02-13] VITALS (103 sets, daily range): BP systolic 104–150; BP diastolic 31–89; PULSE 58–70; RESP 16–23; TEMP 98.8–99.4; O2SAT 63–99
[2024-02-13 03:47] LABS: Basophils # (auto) 0.1 10 ^3/uL (0-0.2); Basophils % (auto) 1.1 % (0.0-2.0); Eosinophils # (auto) 0.4 10 ^3/uL (0-0.8); Hematocrit 43.9 % (41.0-53.0); Hemoglobin 14.4 g/dL (13.5-17.5); Lymphocytes # (auto) 1.2 10 ^3/uL (0.4-5.4); Mean Corpuscular Hemoglobin 29.6 pg (28.0-32.0); Mean Corpuscular Hgb Conc. 32.9 g/dL (32.0-36.0); Mean Corpuscular Volume 90.1 fL (80.0-100.0); Monocytes # (auto) 0.7 10 ^3/uL (0-1.3); Monocytes % (auto) 6.6 % (0.0-12.0); Neutrophils # (auto) 7.6 10 ^3/uL (1.6-8.6); Neutrophils % (auto) 76.3 % (37.0-80.0); Platelet Count (auto) 345 10^3/uL (140-450); Red Blood Cells 4.87 10^6/uL (4.5-5.90); Red Cell Distribution Width 15.2 % (11.8-14.3)
[2024-02-13 04:00] LABS: Alanine Aminotransferase 14 U/L (7-40); Albumin 3.6 g/dL (3.2-4.8); Alkaline Phosphatase 91 U/L (46-116); Anion Gap 7 (5-15); Aspartate Aminotransferase 12 U/L (13-40); BUN/Creatinine Ratio 12.4 (10.0-20.0); Bilirubin, Total 0.4 mg/dL (0.2-1.0); Blood Urea Nitrogen 12 mg/dL (9-23); Carbon Dioxide 30 mmol/L (20-31); Chloride 99 mmol/L (98-107); Glucose 140 mg/dL (74-106); Potassium 3.8 mmol/L (3.5-5.1); Sodium 136 mmol/L (136-145); Total Protein 6.5 g/dL (5.7-8.2)
[2024-02-13] MEDS: VANCOMYCIN 1.25GM/250ML 250 ML IV SCH (05:15)
--- NOTE | 2024-02-13 05:39 | DVH ---
CHEST RADIOGRAPH Indication:On vent Technique: Single frontal view of the chest was obtained COMPARISON: XY CHEST PORTABLE on DOS: 02/12/24, XY CHEST PORTABLE on DOS: 02/11/24, XY CHEST PORTABLE o n DOS: 02/11/24 FINDINGS: Lines and Tubes: Endotracheal tube, enteric catheter and right central venous catheter in satisfactor y position. Lungs: Multifocal airspace disease. Pleura: No effusion. No pneumothorax. Cardiomediastinal contours: Unremarkable Bones: Unremarkable IMPRESSION: Lines and tubes in satisfactory position. No significant interval change.
[2024-02-13 08:55] LABS: Base Excess 3.1 mmol/L (-2.0-3.0)
[2024-02-13] MEDS: PANTOPRAZOLE 40 MG/10 ML VIAL INJ IV SCH (08:59)
[2024-02-13] MEDS ORDERED: LACTULOSE 20Gm/30ML SOLN PO SCH (12:00)
[2024-02-13] MEDS: CEFEPIME 2GM/50ML 50 ML IV SCH (12:28)
[2024-02-13] MEDS: LACTULOSE 20Gm/30ML SOLN PO SCH (12:28)
--- NOTE | 2024-02-13 15:16 | DVHPNRES ---
Progress Note Date Seen: Feb 13, 2024 Resident Creating Document: SAMANTHA RAMIREZ RESIDENT Medical Necessity Reason Pt with a Central, PICC or Fol: Yes The following are medically ne: Central Line, Sanders Catheter Subjective Review of Systems Patient is 78-year-old male with unknown medical history of brought to the hospital via EMS for hypertension and found to be outside at convenience store . During further evaluation emergency department, patient was diagnosed with acute stroke due to ischemia and pneumonia. Later patient was intubated on put on ventilator for worsening respiratory distress, protect of airway with diagnosis of acute stroke, pneumonia and CHF exacerbation. Past medical history: Unknown Past surgical history: Unknown Patient seen and examined in ICU department. Patient is currently on ventilator. Currently requiring vasopressor Levophed. No new events. Objective vital signs Vital Sign Date Time Temp Pulse Resp B/P (MAP) Pulse Ox O2 Delivery O2 Flow Rate FiO2 02/13/24 15:12 120/52 02/13/24 14:15 58 22 97 02/13/24 14:00 45 02/13/24 14:00 Mechanical Ventilator+ 02/13/24 12:00 99.0 99.0 02/11/24 07:30 10 Total Intake and Output 02/12/24 02/12/24 02/13/24 15:00 23:00 07:00 Intake Total 368.00 ml 1003.00 ml 332.75 ml Output Total 1125 ml 1150 ml Balance 368.00 ml -122.00 ml -817.25 ml medications Current Medications Medications Dose Ordered Sig/Theodora Route Start Time Stop Time Status Last Admin Dose Admin Midazolam HCl 50 ml @ 1 mls/hr Q24H IV 02/11/24 09:15 02/13/24 15:12 7 MLS/HR Sodium Chloride 10 ml Q8HR IV 02/11/24 14:00 02/13/24 12:27 10 ML Enoxaparin Sodium 40 mg DAILY SC 02/11/24 10:00 02/13/24 08:59 40 MG Fentanyl Citrate 250 ml @ 2.5 mls/hr Q24H IV 02/11/24 10:15 02/12/24 11:46 5 MLS/HR Furosemide 20 mg BIDD IV 02/11/24 18:00 02/13/24 15:12 20 MG Azithromycin 250 ml @ 125 mls/hr DAILY IV 02/12/24 10:00 02/13/24 09:00 125 MLS/HR Norepinephrine Bitartrate 250 ml @ 3.75 mls/hr Q24H IV 02/11/24 18:15 02/13/24 08:26 7.5 MLS/HR Aspirin 300 mg DAILY [place] 02/12/24 10:00 02/13/24 09:45 300 MG Atorvastatin Calcium 40 mg HS PO 02/12/24 22:00 02/12/24 21:43 40 MG Vancomycin HCl 0 ml @ 0 mls/hr UD IV 02/12/24 13:00 Pantoprazole Sodium 40 mg DAILY IV 02/13/24 10:00 02/13/24 08:59 40 MG Vancomycin HCl 250 ml @ 200 mls/hr Q12H IV 02/13/24 05:00 02/13/24 05:15 200 MLS/HR Cefepime/Dextrose 50 ml @ 12.5 mls/hr Q8HR IV 02/13/24 14:00 02/13/24 12:28 12.5 MLS/HR Lactulose 30 ml Q8HR PO 02/13/24 12:00 02/13/24 12:28 30 ML Examination General Appearance: RASS -3, sedated and on ventilation. Head Exam: Normal inspection Neck Exam: Normal inspection. Non-tender. Normal alignment Pulmonary/Respiratory: Chest non-tender. bilateral crackles over bilateral lung lobes. Cardiovascular/Chest: Regular rate and rhythm. No murmurs. No JVD. Peripheral Pulses: 2+ Radial (R). 2+ Radial (L). 2+ Pedal (R). 2+ Pedal (L) Abdominal Exam: Normal bowel sounds. Soft. Nontender. No hepatospenomegaly. No masses, distended abdomin, no fluid thrill. Ankle Exam: Negative ankle edema Lower extremities: 2+ lower extremity edema Neuro/Mental Status: Appropriate pupillary reflex, other cranial nerve can not be assessed. laboratory and microbiology Laboratory Tests 02/13/24 03:10 Test 02/13/24 03:10 Range/Units Serum Glucose 140 H 74-106 mg/dL Microbiology Date/Time Source Procedure Growth Status 02/12/24 13:30 Blood Blood Culture - Preliminary NO GROWTH AFTER 24 HOURS OF INCUBATION. Resulted 02/11/24 13:06 Nose MRSA Screen - Final Complete 02/11/24 09:19 Sputum Gram Stain - Final Resulted 02/11/24 09:19 Sputum Respiratory Culture - Preliminary Resulted Problem List/Assessment/Plan Problem List/Assessment/Plan Acute stroke due to ischemia Acute hypercapnic hypoxic respiratory failure due to pneumonia and CHF Left lower lobe pneumonia Gram-positive/Gram-negative Septic shock due to pneumonia Acute CHF? diastolic ? ARDS Emphysema Pulmonary edema Hypertensive emergency Carotid artery stenosis: 50-69% stenosis left paroxysmal ICA DVT and PE ruled out Fatty liver Infrarenal aortic aneurysm:5.8 x 6.0 cm. Prostatomegaly Constipation Obesity Plan -on ventilator: AC/VC: Respiratory rate 18, tidal volume 550, FiO2 100%, peep 5. -initiate antibiotic with cefepime, vancomycin, azithromycin. -on vasopressor Levophed: Target map greater than 65. -continue IV furosemide 20 mg b.i.d.. -echocardiogram: Left ventricular ejection fraction 60%, grade 1 diastolic dysfunction -neurology consultation: Aspirin, Lipitor, MRI, EEG. When stable. -cardiology consultation: Continue current management. -DVT prophylaxis: Lovenox -PUD prophylaxis: Protonix Critical care time spent greater than 82 minutes. -social service has been consulted given there is no family to reach out. Continue current management with mechanical ventilation, IV antibiotic, IV Lasix, aspirin, Lipitor, Lovenox and Protonix. Patient continued requiring vasopressor at this point, re-evaluate in a.m.. Continue with current management. Plan discussed with Dr Mcknight Plan discussed with: Other (RN) My Orders My Orders Orders - SAMANTHA RAMIREZ Procedure Category Date Status Time Vancomycin PHA 02/13/24 In Process 1.25gm/250ml 05:00 Vancomycin Per TELLY 02/13/24 In Process Pharmacy Protoc 17:00 Vancomycin,Trough LAB 02/13/24 Logged 16:00 Chest Xray 1 View XY 02/13/24 Resulted 04:00 Cefepime 2gm/50ml PHA 02/13/24 In Process 14:00 Lactulose Oral PHA 02/13/24 In Process 12:00 Dietary Evaluation Review Comments: 1) Recommend CCHO-60, Cardiac 2gNa LoFat LoCholesterol diet when medically feasible. 2) If GI accessible but PO feeding is not an option, consider glucerna 1.2 @45ml/hr. In 24 hrs, pt will be receiving 65g protein and 1296 kcal.Adj and increase infusion rate as tolerated. 3) If NPO > 7 days and GI is not accesible, consider TPN to support 75% of her energy and protein needs. Expected Outcomes/Goals: Gradual weight loss, improved glucose Date of Service: Feb 13, 2024 Billing Provider: ESTELLE MCKNIGHT MD Common Visit Codes: [id number] CARE 30-74 MIN SAMANTHA RAMIREZ RESIDENT Feb 13, 2024 15:16 ESTELLE MCKNIGHT MD Feb 16, 2024 17:08
--- NOTE | 2024-02-13 20:02 | DVHPN2 ---
Progress Note - Dictate Date Seen: Feb 13, 2024 Medical Necessity Reason Pt with a Central, PICC or Fol: Yes The following are medically ne: Central Line, Sanders Catheter Subjective Mr. Glass is a 78 years old gentleman with a history of obesity, the patient was taken to the [facility] on 02/11/2024 with a chief company of elevated blood pressure. I have seen and examined the patient, I have discussed with his nurse and the medical staff, the patient was remained intubated, on sedation, but is respond to light touch, questionably to vocal stimuli Social service input has been appreciated, no family was found Levo 4 mcg/minutes, Versed 7 mg/hour, fentanyl 125 mcg/hour, UDS, 02/11/2024: Negative Plasma alcohol, 02/11/2024: 3.4 Urinalysis, 02/11/2024: Unremarkable ABG, 02/11/2024: Respiratory acidosis CBC, 02/11/2024: Unremarkable BMP 02/11/2024: Unremarkable HCO3, 02/11/2024: 29, 02/12/2024, 33 Liver function tests, 02/12/2024: Normal HbA1c, 02/11/2024: 7.8 TG/Chol/LDL/LDL/HDL, 02/11/2024: 190/171/109/42 TSH, 02/11/2024: 4.29 Carotid Doppler, 02/11/2024: Normal left ventricular size and dimension. Normal left ventricular systolic function estimated ejection fraction 60%. There is a grade 1 diastolic dysfunction. Normal right ventricular size and dimension. Normal right ventricular systolic function. Normal biatrial size and dimension. The aortic valve is thickened and sclerotic there is [id number] aortic valve stenosis with a peak gradient of33 and mean gradient of 18 mm of mercury. The mitral valve is mildly thickened there is mild mitral valve regurgitation. There is mild tricuspid valve regurgitation. The pulmonary valve is grossly normal. No pericardial effusion. Carotid Doppler, 02/11/2024: 1. 50-69% stenosis at the level of the left proximal ICA. 2. No hemodynamically significant stenosis noted in the right carotid system. Chest x-ray, 02/11/2024: Lines and tubes in appropriate position. Cardiomegaly with small left pleural effusion and diffuse interstitial opacities which may reflect pulmonary edema CT head, 02/11/2024: 1. Well-defined hypodensity of approximate size 10 x 8 mm in the simon on the left side, concerning for acute infarct. 2. Chronic periventricular ischemic changes. 3. Cerebral and cerebellar atrophy, likely age-related. 4. Chronic and / or ancillary findings as described above. 5. Advised further evaluation with MRI brain without contrast. vital signs Vital Sign Date Time Temp Pulse Resp B/P (MAP) Pulse Ox O2 Delivery O2 Flow Rate FiO2 02/13/24 19:00 64 16 117/47 (70) 95 02/13/24 18:13 45 02/13/24 18:00 Mechanical Ventilator+ 02/13/24 16:00 99.2 99.2 02/11/24 07:30 10 Total Intake and Output 02/12/24 02/12/24 02/13/24 15:00 23:00 07:00 Intake Total 368.00 ml 1003.00 ml 332.75 ml Output Total 1125 ml 1150 ml Balance 368.00 ml -122.00 ml -817.25 ml medications Current Medications Medications Dose Ordered Sig/Theodora Route Start Time Stop Time Status Last Admin Dose Admin Midazolam HCl 50 ml @ 1 mls/hr Q24H IV 02/11/24 09:15 02/13/24 15:12 7 MLS/HR Sodium Chloride 10 ml Q8HR IV 02/11/24 14:00 02/13/24 12:27 10 ML Enoxaparin Sodium 40 mg DAILY SC 02/11/24 10:00 02/13/24 08:59 40 MG Fentanyl Citrate 250 ml @ 2.5 mls/hr Q24H IV 02/11/24 10:15 02/13/24 18:50 10 MLS/HR Furosemide 20 mg BIDD IV 02/11/24 18:00 02/13/24 15:12 20 MG Azithromycin 250 ml @ 125 mls/hr DAILY IV 02/12/24 10:00 02/13/24 09:00 125 MLS/HR Norepinephrine Bitartrate 250 ml @ 3.75 mls/hr Q24H IV 02/11/24 18:15 02/13/24 08:26 7.5 MLS/HR Aspirin 300 mg DAILY [place] 02/12/24 10:00 02/13/24 09:45 300 MG Atorvastatin Calcium 40 mg HS PO 02/12/24 22:00 02/12/24 21:43 40 MG Pantoprazole Sodium 40 mg DAILY IV 02/13/24 10:00 02/13/24 08:59 40 MG Cefepime/Dextrose 50 ml @ 12.5 mls/hr Q8HR IV 02/13/24 14:00 02/13/24 12:28 12.5 MLS/HR Lactulose 30 ml Q8HR PO 02/13/24 12:00 02/13/24 12:28 30 ML objective The patient is well-nourished and well-developed with no distress. The patient is intubated MENTAL STATUS: Subjective CRANIAL NERVES: Pupils are equal, round and nonreactive, 1-2mm. There are corneal reflexes and doll's eyes phenomenon. No signs of facial weakness. There are gagging or coughing reflexes SENSATION: No responses to pain stimuli. MOTOR: Normal tone in the upper and lower extremity. Normal muscle bulk. No fasciculations. No spontaneous movement. REFLEXES: Deep tendon reflexes are symmetrical. No pathological reflexes. CEREBELLAR/COORDINATION: Deferred GAIT/STATION: deferred. laboratory and microbiology Laboratory Tests 02/13/24 03:10 Test 02/13/24 03:10 Range/Units Serum Glucose 140 H 74-106 mg/dL Problem List Altered mental status Hypoxic encephalopathy Metabolic encephalopathy Respiratory failure Hypertension emergency Respiratory acidosis Sepsis, ? Septic shock Pneumonia Cellulitis in the legs Stroke per CT head Left ICA moderate stenosis Assessment/Plan Monitoring Supportive treatments ICU care EEG Consider MRI brain scan later Stabilize vitals/pressor drip Respiratory support/vent management Blood culture IV antibiotics Aspirin 81 mg daily/300 mg suppository daily Lipitor 40 mg daily DVT prophylaxis Pulmonology evaluation Cardiology evaluation Social service on case More recommendation per clinical course This medical document was created using an electronic medical record system with [employer] dictation system. Although this document has been carefully reviewed, there may still be some phonetic and typographical errors. These areas are purely typographical due to imperfections of the software programs, and do not reflect any compromise in the patient's medical care. Prognosis guarded Dietary Evaluation Review Comments: 1) Recommend CCHO-60, Cardiac 2gNa LoFat LoCholesterol diet when medically feasible. 2) If GI accessible but PO feeding is not an option, consider glucerna 1.2 @45ml/hr. In 24 hrs, pt will be receiving 65g protein and 1296 kcal.Adj and increase infusion rate as tolerated. 3) If NPO > 7 days and GI is not accesible, consider TPN to support 75% of her energy and protein needs. Expected Outcomes/Goals: Gradual weight loss, improved glucose Plan discussed with: Other Critical Care Time(min): 30 TRAV CRUZ MD Feb 13, 2024 20:02
--- NOTE | 2024-02-13 20:21 | DVHEEG2 ---
Neurology EEG Procedural Note Procedural Note EXAM DATE: 02/13/2024 REFERRING DOCTOR: Dr. Cruz TECHNIQUE: Eighteen channels of EEG, 2 channels of EOG, and 1 channel of EKG were recorded using the [employer] 10/20 system. CLINICAL DATA: The patient was referred for an EEG evaluation for the evidence of seizure disorder. MEDICATIONS: See chart BACKGROUND ACTIVITY: This EEG showed diffuse low amplitude theta and delta activity over both hemispheres, that was reactive to external stimuli ACTIVATION: Hyperventilation: Not done Photic Stimulation: Not done Sleep: Unresponsiveness IMPRESSION: This is a moderately abnormal EEG, this EEG is seen in moderate cerebral dysfunction due to metabolic/hypoxic encephalopathy or medication effect, please correlate clinically. The EKG channel showed a regular heart rate of 66/[place] [address] TRAV CRUZ MD Feb 13, 2024 20:21
[2024-02-14] VITALS (112 sets, daily range): BP systolic 84–171; BP diastolic 27–70; PULSE 57–70; RESP 12–24; TEMP 98.6–100.4; O2SAT 87–99
[2024-02-14 03:50] LABS: Basophils # (auto) 0.1 10 ^3/uL (0-0.2); Basophils % (auto) 1.3 % (0.0-2.0); Eosinophils # (auto) 0.3 10 ^3/uL (0-0.8); Eosinophils % (auto) 3.6 % (0.0-7.0); Hematocrit 43.3 % (41.0-53.0); Hemoglobin 14.4 g/dL (13.5-17.5); Lymphocytes # (auto) 1.4 10 ^3/uL (0.4-5.4); Lymphocytes % (auto) 14.7 % (10.0-50.0); Mean Corpuscular Hgb Conc. 33.3 g/dL (32.0-36.0); Mean Corpuscular Volume 90.2 fL (80.0-100.0); Monocytes # (auto) 0.8 10 ^3/uL (0-1.3); Neutrophils # (auto) 6.9 10 ^3/uL (1.6-8.6); Neutrophils % (auto) 72.4 % (37.0-80.0); Nucleated Red Blood Cells % 0.2 %; Platelet Count (auto) 332 10^3/uL (140-450); Red Cell Distribution Width 14.9 % (11.8-14.3); White Blood Cell 9.6 10^3/uL (4.4-10.8)
[2024-02-14 04:07] LABS: Chloride 99 mmol/L (98-107); Potassium 3.7 mmol/L (3.5-5.1); Sodium 136 mmol/L (136-145)
[2024-02-14 04:08] LABS: Anion Gap 8 (5-15); Calcium 9.1 mg/dL (8.7-10.4); Carbon Dioxide 29 mmol/L (20-31)
[2024-02-14 04:13] LABS: BUN/Creatinine Ratio 14.4 (10.0-20.0); Blood Urea Nitrogen 13 mg/dL (9-23); Glucose 127 mg/dL (74-106)
--- NOTE | 2024-02-14 05:36 | DVH ---
CHEST RADIOGRAPH Indication:On vent Technique: Single frontal view of the chest was obtained COMPARISON: XY CHEST XRAY 1 VIEW on DOS: 02/13/24, XY CHEST PORTABLE on DOS: 02/12/24, XY CHEST PORTABL E on DOS: 02/11/24 FINDINGS: Lines and Tubes: Endotracheal tube and enteric catheter and right central venous catheter in satisfac tory position. Lungs: Multifocal airspace disease. Pleura: No effusion. No pneumothorax. Cardiomediastinal contours: Unremarkable Bones: Unremarkable IMPRESSION: Lines and tubes in satisfactory position. No significant interval change.
[2024-02-14 06:20] LABS: Base Excess 2.2 mmol/L (-2.0-3.0)
--- NOTE | 2024-02-14 17:36 | DVHPN2 ---
Subjective Patient is 78-year-old male with unknown medical history of brought to the hospital via EMS for hypertension and found to be outside at convenience store . During further evaluation emergency department, patient was diagnosed with acute stroke due to ischemia and pneumonia. Later patient was intubated on put on ventilator for worsening respiratory distress, protect of airway with diagnosis of acute stroke, pneumonia and CHF exacerbation. Intubated and sedated Reviewed: Care Plan Changes from previous H/P or p: No Changes Respiratory: Shortness of breath Objective Vitals Vital Signs Date Time Temp Pulse Resp B/P (MAP) Pulse Ox O2 Delivery O2 Flow Rate FiO2 02/14/24 16:00 119/53 02/14/24 15:45 61 22 95 02/14/24 15:45 98.9 98.9 02/14/24 15:20 35 02/14/24 12:00 Mechanical Ventilator+ Intake/Output Intake and Output 02/14/24 05:00 Intake Total 1212.00 ml Output Total 2580 ml Balance -1368.00 ml Intake Oral 120 ml IV Total 1092.00 ml Output Urine Total 2500 ml Gastric Drainage Total 80 ml Medications Current Medications Medications Dose Ordered Sig/Theodora Route Start Time Stop Time Status Last Admin Dose Admin Midazolam HCl 50 ml @ 1 mls/hr Q24H IV 02/11/24 09:15 02/14/24 15:58 6 MLS/HR Sodium Chloride 10 ml Q8HR IV 02/11/24 14:00 02/14/24 15:44 10 ML Enoxaparin Sodium 40 mg DAILY SC 02/11/24 10:00 02/14/24 10:56 40 MG Fentanyl Citrate 250 ml @ 2.5 mls/hr Q24H IV 02/11/24 10:15 02/14/24 16:00 10 MLS/HR Furosemide 20 mg BIDD IV 02/11/24 18:00 02/14/24 05:35 20 MG Azithromycin 250 ml @ 125 mls/hr DAILY IV 02/12/24 10:00 02/14/24 10:49 125 MLS/HR Norepinephrine Bitartrate 250 ml @ 3.75 mls/hr Q24H IV 02/11/24 18:15 02/14/24 06:02 11.25 MLS/HR Aspirin 300 mg DAILY ND 02/12/24 10:00 02/14/24 10:58 300 MG Atorvastatin Calcium 40 mg HS PO 02/12/24 22:00 02/13/24 21:34 40 MG Pantoprazole Sodium 40 mg DAILY IV 02/13/24 10:00 02/14/24 10:41 40 MG Cefepime/Dextrose 50 ml @ 12.5 mls/hr Q8HR IV 02/13/24 14:00 02/14/24 15:44 12.5 MLS/HR Lactulose 30 ml Q8HR PO 02/13/24 12:00 02/14/24 15:44 30 ML Laboratory Results Laboratory Tests 02/14/24 03:17 Chemistry Test 02/14/24 03:17 Calcium Level 9.1 mg/dL (8.7-10.4) Urinalysis Test 02/11/24 08:30 Urine Color Light-yellow (Yellow) Urine Clarity Clear (Clear) Urine pH 6.0 (5.0-9.0) Urine Specific Mccaskill 1.012 (1.001-1.035) Urine Protein Negative (Negative) Urine Ketones Negative (Negative) Urine Blood Negative /uL (Negative) Urine Nitrite Negative (Negative) Urine Bilirubin Negative (Negative) Urine Urobilinogen Normal mg/dL (Negative) Urine Leukocyte Esterase Negative /uL (Negative) Urine RBC None seen /hpf (0 - 3) Urine WBC <1 /hpf (0 - 3) Urine Squamous Epithelial Cells None seen /hpf (<5) Urine Bacteria None seen /hpf (None Seen) Urine Glucose Normal mg/dL (Normal) Blood Gas Results Test 02/14/24 06:15 Arterial Blood pH 7.417 (7.350-7.450) FiO2 % 35.0 Microbiology Microbiology Date/Time Source Procedure Growth Status 02/12/24 13:30 Blood Blood Culture - Preliminary NO GROWTH AFTER 48 HOURS OF INCUBATION. Resulted 02/11/24 13:06 Nose MRSA Screen - Final Complete 02/11/24 09:19 Sputum Gram Stain - Final Complete 02/11/24 09:19 Sputum Respiratory Culture - Final Complete Assessment/Plan Assessment/Plan Acute stroke due to ischemia Acute hypercapnic hypoxic respiratory failure due to pneumonia and CHF Left lower lobe pneumonia Gram-positive/Gram-negative Septic shock due to pneumonia Acute CHF? diastolic ? ARDS Emphysema Pulmonary edema Hypertensive emergency Carotid artery stenosis: 50-69% stenosis left paroxysmal ICA DVT and PE ruled out Fatty liver Infrarenal aortic aneurysm:5.8 x 6.0 cm. Prostatomegaly Constipation Obesity Plan -on ventilator: AC/VC: Respiratory rate 18, tidal volume 550, FiO2 100%, peep 5. -ABG: PH 7.427, pCO2 46.2, HC03 29.8 -initiate antibiotic with cefepime, vancomycin, azithromycin. -on vasopressor Levophed: Target map greater than 65. -continue IV furosemide 20 mg b.i.d.. -echocardiogram: Left ventricular ejection fraction 60%, grade 1 diastolic dysfunction -neurology consultation: Aspirin, Lipitor, MRI, EEG. When stable. -cardiology consultation: Continue current management. -DVT prophylaxis: Lovenox -PUD prophylaxis: Protonix Critical care time spent greater than 82 minutes. Plan discussed with: Other (nurse) My Orders Orders - DAMIEN CID MD Procedure Category Date Status Time Ng To [facility] 02/14/24 In Process 12:15 Date of Service: Feb 14, 2024 Billing Provider: DAMIEN CID MD Common Visit Codes: [id number] CARE 30-74 MIN DAMIEN CID MD Feb 14, 2024 17:36
--- NOTE | 2024-02-14 18:09 | DVHPN2 ---
Progress Note - Dictate Date Seen: Feb 14, 2024 Medical Necessity Reason Pt with a Central, PICC or Fol: Yes The following are medically ne: Central Line, Roblero Catheter Reason for roblero catheter: Strict I&O Subjective Patient seen and examined at bedside. Sedated, intubated on mechanical ventilator. Overnight events reviewed. vital signs Vital Sign Date Time Temp Pulse Resp B/P (MAP) Pulse Ox O2 Delivery O2 Flow Rate FiO2 02/14/24 17:44 117/57 02/14/24 16:00 22 95 Mechanical Ventilator+ 35 35 02/14/24 15:45 61 02/14/24 15:45 98.9 98.9 Total Intake and Output 02/13/24 02/13/24 02/14/24 15:00 23:00 07:00 Intake Total 549.75 ml 304.75 ml 397.75 ml Output Total 1430 ml 450 ml Balance 549.75 ml -1125.25 ml -52.25 ml medications Current Medications Medications Dose Ordered Sig/Theodora Route Start Time Stop Time Status Last Admin Dose Admin Midazolam HCl 50 ml @ 1 mls/hr Q24H IV 02/11/24 09:15 02/14/24 15:58 6 MLS/HR Sodium Chloride 10 ml Q8HR IV 02/11/24 14:00 02/14/24 15:44 10 ML Enoxaparin Sodium 40 mg DAILY SC 02/11/24 10:00 02/14/24 10:56 40 MG Fentanyl Citrate 250 ml @ 2.5 mls/hr Q24H IV 02/11/24 10:15 02/14/24 16:00 10 MLS/HR Furosemide 20 mg BIDD IV 02/11/24 18:00 02/14/24 17:44 20 MG Azithromycin 250 ml @ 125 mls/hr DAILY IV 02/12/24 10:00 02/14/24 10:49 125 MLS/HR Norepinephrine Bitartrate 250 ml @ 3.75 mls/hr Q24H IV 02/11/24 18:15 02/14/24 06:02 11.25 MLS/HR Aspirin 300 mg DAILY MT 02/12/24 10:00 02/14/24 10:58 300 MG Atorvastatin Calcium 40 mg HS PO 02/12/24 22:00 02/13/24 21:34 40 MG Pantoprazole Sodium 40 mg DAILY IV 02/13/24 10:00 02/14/24 10:41 40 MG Cefepime/Dextrose 50 ml @ 12.5 mls/hr Q8HR IV 02/13/24 14:00 02/14/24 15:44 12.5 MLS/HR Lactulose 30 ml Q8HR PO 02/13/24 12:00 02/14/24 15:44 30 ML objective Gen.: Patient lying in bed in medical ICU. Sedated, intubated on mechanical ventilator. Head: Normocephalic, atraumatic. Eyes: PERRLA. Ears: Normal external anatomy. Throat: Endotracheal tube and orogastric tube in place. Neck: Supple, trachea midline. Chest: Transmitted breath sounds bilaterally. Decreased air entry bilaterally. No wheezing. Bibasilar crackles. Cardiovascular: Positive S1, positive S2. Regular rate and rhythm. Abdomen: Positive bowel sounds in all 4 quadrants. Soft, nontender, nondistended. : Roblero in place. Normal external genitalia. Rectal: Deferred. Skin: Warm, dry. Intact. Extremities: 2+ radial pulses bilaterally. No lower extremity edema. Neuro: Sedated. laboratory and microbiology Laboratory Tests 02/14/24 03:17 Test 02/14/24 03:17 Range/Units Serum Glucose 127 H 74-106 mg/dL Assessment/Plan Impression: Acute hypoxic respiratory failure secondary to pneumonia and CHF exacerbation Acute on chronic hypercarbic respiratory failure Acute respiratory distress syndrome On mechanical ventilator Pneumonia, likely Gram-negative CHF exacerbation Pulmonary edema Obesity with a BMI of 32.6 Acute stroke Events: Remains on vent support On assist control with a respiratory rate of 22, tidal volume 550, PEEP of 8, FiO2 at 35%. CXR demonstrates devices in place. Multifocal airspace disease. No pleural effusion or pneumothorax. ABG reviewed, compensated. Sedated on Versed and Fentanyl. On pressors for hemodynamic support. Levophed 6 mcg/min Titrate to keep MAP above 65 mmHg/SBP above 90 mmHg. Continue antibiotics - cefepime and azithromycin. Diurese w/ Lasix Monitor renal function Labs and imaging reviewed. Rest of plan as noted below. Plan: s/p intubation on mechanical ventilator CT head notable for hypodense pretty 10 x 8 mm in size in the simon with the left side from strenuous for acute infarct. Chronic periventricular ischemic changes. Cerebral and cerebellar atrophy likely age-related. Recommend neurology evaluation. CXR image and report reviewed. Devices in place. Cardiomegaly. Small left pleural effusion. Diffuse interstitial opacities likely pulmonary edema. Initial ABG was notable for acute on chronic hypercarbic respiratory failure, PaCO2 63.4 mmHg Repeat ABG reviewed. Compensated. Poor PF ratio. Vent settings; assist control with a respiratory rate of 22, tidal volume 550, PEEP of 8, FiO2 at 35%. Titrate FIO2 to keep O2 saturation above 92%. VAP bundle Daily ABG and CXR while intubated. Sedate for ventilator synchrony Pressors as necessary for hemodynamic support. Titrate to keep MAP above 65 mmHg/SBP above 90 mmHg. Continue antibiotics. F/u cultures. Diurese to euvolemia. Monitor ins/outs. On Lasix BID. Monitor renal function due to Acute kidney injury. Monitor electrolytes. Supplement as necessary. Nutritional support. Accucheks, ISS. GI/DVT prophylaxis. Condition: Critical Prognosis: Poor given multiple comorbidities. Rest of plan per hospitalist and other consultants. A total of 35 minutes of critical care time was spent reviewing the patient record, examining the patient, making a diagnostic and therapeutic plan, discussing this plan with the medical personnel, following up on diagnostic studies and following the patient for clinical stability excluding any and all procedures. At least 50% of this time was spent in direct, [id number] contact. Thank you GIORGI Huffman for allowing me to participate in this patient's care. Further recommendations will depend on patient's clinical course. Please do not hesitate to contact me if you have any questions or concerns. This medical document was created using an electronic medical record system with [employer] dictation system. Although this document has been carefully reviewed, there may still be some phonetic and typographical errors. These areas are purely typographical due to imperfections of the software programs, and do not reflect any compromise in the patient's medical care. Dietary Evaluation Review Comments: 1) Recommend CCHO-60, Cardiac 2gNa LoFat LoCholesterol diet when medically feasible. 2) If GI accessible but PO feeding is not an option, consider glucerna 1.2 @45ml/hr. In 24 hrs, pt will be receiving 65g protein and 1296 kcal.Adj and increase infusion rate as tolerated. 3) If NPO > 7 days and GI is not accesible, consider TPN to support 75% of her energy and protein needs. Expected Outcomes/Goals: Gradual weight loss, improved glucose Plan discussed with: Other (JESUS Beverly) Critical Care Time(min): 35 ALEXANDER SCHWAB MD Feb 14, 2024 18:09
--- NOTE | 2024-02-14 23:23 | DVHPN2 ---
Progress Note - Dictate Date Seen: Feb 14, 2024 Medical Necessity Reason Pt with a Central, PICC or Fol: Yes The following are medically ne: Central Line, Roblero Catheter Reason for roblero catheter: Strict I&O Subjective Mr. Glass is a 78 years old gentleman with a history of obesity, the patient was taken to the [facility] on 02/11/2024 with a chief company of elevated blood pressure. I have seen and examined the patient, I have discussed with his nurse, the patient was remained intubated, on sedation, but is respond to light touch We have not got family contact information yet Levo 6 mcg/minutes, Versed 7 mg/hour, fentanyl 100 mcg/hour, UDS, 02/11/2024: Negative Plasma alcohol, 02/11/2024: 3.4 Urinalysis, 02/11/2024: Unremarkable ABG, 02/11/2024: Respiratory acidosis CBC, 02/11/2024: Unremarkable BMP 02/11/2024: Unremarkable HCO3, 02/11/2024: 29, 02/12/2024, 33 Liver function tests, 02/12/2024: Normal HbA1c, 02/11/2024: 7.8 TG/Chol/LDL/LDL/HDL, 02/11/2024: 190/171/109/42 TSH, 02/11/2024: 4.29 EEG, 02/12/2024: Moderately abnormal EEG Carotid Doppler, 02/11/2024: Normal left ventricular size and dimension. Normal left ventricular systolic function estimated ejection fraction 60%. There is a grade 1 diastolic dysfunction. Normal right ventricular size and dimension. Normal right ventricular systolic function. Normal biatrial size and dimension. The aortic valve is thickened and sclerotic there is [id number] aortic valve stenosis with a peak gradient of33 and mean gradient of 18 mm of mercury. The mitral valve is mildly thickened there is mild mitral valve regurgitation. There is mild tricuspid valve regurgitation. The pulmonary valve is grossly normal. No pericardial effusion. Carotid Doppler, 02/11/2024: 1. 50-69% stenosis at the level of the left proximal ICA. 2. No hemodynamically significant stenosis noted in the right carotid system. Chest x-ray, 02/11/2024: Lines and tubes in appropriate position. Cardiomegaly with small left pleural effusion and diffuse interstitial opacities which may reflect pulmonary edema CT head, 02/11/2024: 1. Well-defined hypodensity of approximate size 10 x 8 mm in the simon on the left side, concerning for acute infarct. 2. Chronic periventricular ischemic changes. 3. Cerebral and cerebellar atrophy, likely age-related. 4. Chronic and / or ancillary findings as described above. 5. Advised further evaluation with MRI brain without contrast. vital signs Vital Sign Date Time Temp Pulse Resp B/P (MAP) Pulse Ox O2 Delivery O2 Flow Rate FiO2 02/14/24 22:45 60 22 129/48 (75) 92 02/14/24 22:11 35 02/14/24 22:00 Mechanical Ventilator+ 02/14/24 22:00 100.4 100.4 Total Intake and Output 02/13/24 02/13/24 02/14/24 15:00 23:00 07:00 Intake Total 549.75 ml 304.75 ml 426.00 ml Output Total 1430 ml 450 ml Balance 549.75 ml -1125.25 ml -24.00 ml medications Current Medications Medications Dose Ordered Sig/Theodora Route Start Time Stop Time Status Last Admin Dose Admin Midazolam HCl 50 ml @ 1 mls/hr Q24H IV 02/11/24 09:15 02/14/24 22:52 7 MLS/HR Sodium Chloride 10 ml Q8HR IV 02/11/24 14:00 02/14/24 22:02 10 ML Enoxaparin Sodium 40 mg DAILY SC 02/11/24 10:00 02/14/24 10:56 40 MG Fentanyl Citrate 250 ml @ 2.5 mls/hr Q24H IV 02/11/24 10:15 02/14/24 16:00 10 MLS/HR Furosemide 20 mg BIDD IV 02/11/24 18:00 02/14/24 17:44 20 MG Azithromycin 250 ml @ 125 mls/hr DAILY IV 02/12/24 10:00 02/14/24 10:49 125 MLS/HR Norepinephrine Bitartrate 250 ml @ 3.75 mls/hr Q24H IV 02/11/24 18:15 02/14/24 06:02 11.25 MLS/HR Aspirin 300 mg DAILY [place] 02/12/24 10:00 02/14/24 10:58 300 MG Atorvastatin Calcium 40 mg HS PO 02/12/24 22:00 02/14/24 22:04 40 MG Pantoprazole Sodium 40 mg DAILY IV 02/13/24 10:00 02/14/24 10:41 40 MG Cefepime/Dextrose 50 ml @ 12.5 mls/hr Q8HR IV 02/13/24 14:00 02/14/24 22:03 12.5 MLS/HR Lactulose 30 ml Q8HR PO 02/13/24 12:00 02/14/24 22:04 30 ML objective The patient is well-nourished and well-developed with no distress. The patient is intubated MENTAL STATUS: Subjective CRANIAL NERVES: Pupils are equal, round and nonreactive, 1-2mm. There are corneal reflexes and doll's eyes phenomenon. No signs of facial weakness. There are gagging or coughing reflexes SENSATION: No responses to pain stimuli. MOTOR: Normal tone in the upper and lower extremity. Normal muscle bulk. No fasciculations. No spontaneous movement. REFLEXES: Deep tendon reflexes are symmetrical. No pathological reflexes. CEREBELLAR/COORDINATION: Deferred GAIT/STATION: deferred. laboratory and microbiology Laboratory Tests 02/14/24 03:17 Test 02/14/24 03:17 Range/Units Serum Glucose 127 H 74-106 mg/dL Problem List Altered mental status Hypoxic encephalopathy Metabolic encephalopathy Respiratory failure Hypertension emergency Respiratory acidosis Sepsis, ? Septic shock Pneumonia Cellulitis in the legs Stroke per CT head Left ICA moderate stenosis Assessment/Plan Monitoring Supportive treatments ICU care Follow-up CT head Consider MRI brain scan later Stabilize vitals/pressor drip Respiratory support/vent management Blood culture IV antibiotics Aspirin 81 mg daily/300 mg suppository daily Lipitor 40 mg daily DVT prophylaxis Pulmonology evaluation Cardiology evaluation Social service on case More recommendation per clinical course This medical document was created using an electronic medical record system with [employer] dictation system. Although this document has been carefully reviewed, there may still be some phonetic and typographical errors. These areas are purely typographical due to imperfections of the software programs, and do not reflect any compromise in the patient's medical care. Prognosis guarded Dietary Evaluation Review Comments: 1) Recommend CCHO-60, Cardiac 2gNa LoFat LoCholesterol diet when medically feasible. 2) If GI accessible but PO feeding is not an option, consider glucerna 1.2 @45ml/hr. In 24 hrs, pt will be receiving 65g protein and 1296 kcal.Adj and increase infusion rate as tolerated. 3) If NPO > 7 days and GI is not accesible, consider TPN to support 75% of her energy and protein needs. Expected Outcomes/Goals: Gradual weight loss, improved glucose Plan discussed with: Other Critical Care Time(min): 30 TRAV CRUZ MD Feb 14, 2024 23:23
[2024-02-15] VITALS (106 sets, daily range): BP systolic 84–135; BP diastolic 48–65; PULSE 52–80; RESP 15–23; TEMP 97.7–99.9; O2SAT 90–100
[2024-02-15 03:21] LABS: Basophils # (auto) 0.1 10 ^3/uL (0-0.2); Basophils % (auto) 1.2 % (0.0-2.0); Eosinophils # (auto) 0.4 10 ^3/uL (0-0.8); Eosinophils % (auto) 4.8 % (0.0-7.0); Hematocrit 42.7 % (41.0-53.0); Hemoglobin 14.3 g/dL (13.5-17.5); Lymphocytes # (auto) 1.3 10 ^3/uL (0.4-5.4); Lymphocytes % (auto) 14.5 % (10.0-50.0); Mean Corpuscular Hgb Conc. 33.6 g/dL (32.0-36.0); Mean Corpuscular Volume 89.2 fL (80.0-100.0); Monocytes # (auto) 0.8 10 ^3/uL (0-1.3); Monocytes % (auto) 9.2 % (0.0-12.0); Neutrophils # (auto) 6.1 10 ^3/uL (1.6-8.6); Neutrophils % (auto) 70.3 % (37.0-80.0); Nucleated Red Blood Cells % 0.2 %; Platelet Count (auto) 295 10^3/uL (140-450); Red Blood Cells 4.78 10^6/uL (4.5-5.90); Red Cell Distribution Width 14.7 % (11.8-14.3); White Blood Cell 8.7 10^3/uL (4.4-10.8)
[2024-02-15 03:40] LABS: Alanine Aminotransferase 13 U/L (7-40); Albumin 3.5 g/dL (3.2-4.8); Alkaline Phosphatase 88 U/L (46-116); Anion Gap 8 (5-15); Aspartate Aminotransferase 17 U/L (13-40); BUN/Creatinine Ratio 14.8 (10.0-20.0); Bilirubin, Total 0.7 mg/dL (0.2-1.0); Blood Urea Nitrogen 13 mg/dL (9-23); Calcium 9.1 mg/dL (8.7-10.4); Carbon Dioxide 29 mmol/L (20-31); Chloride 98 mmol/L (98-107); Glucose 132 mg/dL (74-106); Potassium 3.6 mmol/L (3.5-5.1); Sodium 135 mmol/L (136-145); Total Protein 6.4 g/dL (5.7-8.2)
--- NOTE | 2024-02-15 06:01 | DVH ---
CHEST RADIOGRAPH Indication:INTUBATED Technique: Single frontal view of the chest was obtained COMPARISON: XY CHEST XRAY 1 VIEW on DOS: 02/14/24, XY CHEST XRAY 1 VIEW on DOS: 02/13/24, XY CHEST PORT ABLE on DOS: 02/12/24, XY CHEST XRAY 1 VIEW on DOS: 02/14/24 FINDINGS: Lines and Tubes: Endotracheal tube and enteric catheter and right central venous catheter in satisfac tory position. Lungs: Multifocal airspace disease. Pleura: No effusion. No pneumothorax. Cardiomediastinal contours: Unremarkable Bones: Unremarkable IMPRESSION: Lines and tubes in satisfactory position. No significant interval change.
[2024-02-15 07:11] LABS: Base Excess 3.3 mmol/L (-2.0-3.0)
--- NOTE | 2024-02-15 10:26 | DVHNC2 ---
Procedure - Bronchoscopy procedure note: Indications: Right middle lobe atelectasis, Possible mucous plugging. Medicines: See FILM WRITER notes. Complications: None Procedure: Patient medications and allergies reviewed. The risks and benefits of the procedure and the sedation options and risk were discussed with the patient's healthcare proxy. All questions were answered and informed consent was obtained. Patient identification and proposed procedure were verified prior to the procedure by the physician, and a nurse, and the respiratory therapist in ICU room. The heart rate, respiratory rate, oxygen saturations, blood pressure, adequacy of pulmonary ventilation, and response to care were monitored throughout the procedure. The physical status of the patient was reassessed after the procedure. After obtaining informed consent, the bronchoscope was introduced through the endotracheal tube and advanced into the trachea bronchial tree of both lungs. The procedure was accomplished without difficulty. The patient tolerated the procedure well. Findings: The trachea is in normal caliber. The elmira is sharp. The tracheobronchial tree of the right lung was examined to at least the first subsegmental level. The bronchial mucosa and anatomy in the right lung are normal. There are no endobronchial lesions. There was copious whitish secretions in right main stem bronchus. These were cleared out easily with 10 mL saline. Slight mucosal hemorrhage in RUL and RML that resolved with 10 mL of cold saline. Right middle lobe (RML) Bronchoalveolar lavage (BAL) obtained. RML BAL sent for gram stain and culture. The left upper lobe, lingula, and left lower lobe were examined to at least the first subsegmental level. Bronchial mucosa and anatomy in the left upper lobe and lingula are normal. There were no endobronchial lesions. There was copious whitish secretions from left main stem bronchus onward throughout L1-L5. Mucous plugging removed from L1-L5. There was no active bleeding at the completion of the procedure. Estimated blood loss: Less than 5 mL. Impression: Left upper lobe atelectasis due to mucous plugging in L1-L5 Mucous plugging from L1-L5 RML BAL performed Secretions cleared from right main stem bronchus, thick white Recommendation: Follow-up RML BAL results. Procedure codes: 20675, bronchoscopy, rigid and flexible, including fluoroscopic guidance, one performed; with bronchial endobronchial broncho-alveolar lavage, single or multiple sites ALEXANDER SCHWAB MD Feb 15, 2024 10:26
--- NOTE | 2024-02-15 13:07 | DVH ---
EXAM: CT HEAD WITHOUT CONTRAST HISTORY: CVA COMPARISON: CT HEAD WITHOUT CONTRAST on DOS: 02/11/24 TECHNIQUE: Axial images were obtained and reformatted in coronal and sagittal planes. All CT scans at this medical facility are performed using dose modulation techniques as appropriate t o a performed exam including the following: Automated exposure control was utilized; adjustment of th e MA and/or KV according to patient size; and use of iterative reconstruction technique. CT Dose: CTDI volume is 68.77 mGy. Dose-length product is 1354.96 mGy*cm FINDINGS: Supratentorial Region: No evidence for large acute territorial ischemia. No intracranial hemorrhage is noted. Posterior Fossa: No acute abnormality. Brainstem: Unremarkable. Sellar/Suprasellar Region: Unremarkable. Ventricles, Cisterns, Sulci: Age-appropriate. Orbits: Unremarkable. Paranasal Sinuses: Moderate acute pansinusitis with mucosal thickening and fluid noted within the si nuses. Mastoid Air Cells: Unremarkable. Vasculature: Intracranial arterial calcified plaque formation noted. Bones/Soft Tissues: No acute abormality. Other: The patient is intubated. IMPRESSION: 1. No acute intracranial process. 2. Moderate acute pansinusitis.
--- NOTE | 2024-02-15 16:11 | DVHPN2 ---
Subjective Patient is 78-year-old male with unknown medical history of brought to the hospital via EMS for hypertension and found to be outside at [employer] store . During further evaluation emergency department, patient was diagnosed with acute stroke due to ischemia and pneumonia. Later patient was intubated on put on ventilator for worsening respiratory distress, protect of airway with diagnosis of acute stroke, pneumonia and CHF exacerbation. Intubated and sedated Reviewed: Care Plan Changes from previous H/P or p: No Changes Respiratory: Shortness of breath Objective Vitals Vital Signs Date Time Temp Pulse Resp B/P (MAP) Pulse Ox O2 Delivery O2 Flow Rate FiO2 02/15/24 14:17 65 18 117/56 (76) 92 50 02/15/24 14:00 Mechanical Ventilator+ 02/15/24 12:30 98.4 98.4 Intake/Output Intake and Output 02/15/24 05:00 Intake Total 943.00 ml Output Total 1800 ml Balance -857.00 ml Intake Oral 220 ml IV Total 723.00 ml Output Urine Total 1650 ml Gastric Drainage Total 150 ml Other Physical Findings General Appearance: RASS -3, sedated and on ventilation. Head Exam: Normal inspection Neck Exam: Normal inspection. Non-tender. Normal alignment Pulmonary/Respiratory: Chest non-tender. bilateral crackles over bilateral lung lobes. Cardiovascular/Chest: Regular rate and rhythm. No murmurs. No JVD. Peripheral Pulses: 2+ Radial (R). 2+ Radial (L). 2+ Pedal (R). 2+ Pedal (L) Abdominal Exam: Normal bowel sounds. Soft. Nontender. No hepatospenomegaly. No masses, distended abdomin, no fluid thrill. Ankle Exam: Negative ankle edema Lower extremities: 2+ lower extremity edema Neuro/Mental Status: Appropriate pupillary reflex, other cranial nerve can not be assessed. Medications Current Medications Medications Dose Ordered Sig/Theodora Route Start Time Stop Time Status Last Admin Dose Admin Midazolam HCl 50 ml @ 1 mls/hr Q24H IV 02/11/24 09:15 02/15/24 06:30 7 MLS/HR Sodium Chloride 10 ml Q8HR IV 02/11/24 14:00 02/15/24 14:29 10 ML Enoxaparin Sodium 40 mg DAILY SC 02/11/24 10:00 02/15/24 10:55 40 MG Fentanyl Citrate 250 ml @ 2.5 mls/hr Q24H IV 02/11/24 10:15 02/14/24 16:00 10 MLS/HR Furosemide 20 mg BIDD IV 02/11/24 18:00 02/15/24 06:17 20 MG Azithromycin 250 ml @ 125 mls/hr DAILY IV 02/12/24 10:00 02/15/24 11:00 125 MLS/HR Norepinephrine Bitartrate 250 ml @ 3.75 mls/hr Q24H IV 02/11/24 18:15 02/14/24 06:02 11.25 MLS/HR Aspirin 300 mg DAILY CA 02/12/24 10:00 02/15/24 10:59 300 MG Atorvastatin Calcium 40 mg HS PO 02/12/24 22:00 02/14/24 22:04 40 MG Pantoprazole Sodium 40 mg DAILY IV 02/13/24 10:00 02/15/24 10:59 40 MG Cefepime/Dextrose 50 ml @ 12.5 mls/hr Q8HR IV 02/13/24 14:00 02/15/24 14:29 12.5 MLS/HR Lactulose 30 ml Q8HR PO 02/13/24 12:00 02/15/24 14:29 30 ML Laboratory Results Laboratory Tests 02/15/24 03:07 Chemistry Test 02/15/24 03:07 Albumin 3.5 g/dL (3.2-4.8) Calcium Level 9.1 mg/dL (8.7-10.4) Total Protein 6.4 g/dL (5.7-8.2) LFT Test 02/15/24 03:07 Alanine Aminotransferase (ALT) 13 U/L (7-40) Alkaline Phosphatase 88 U/L (46-116) Aspartate Amino Transferase (AST) 17 U/L (13-40) Total Bilirubin 0.7 mg/dL (0.2-1.0) Urinalysis Test 02/11/24 08:30 Urine Color Light-yellow (Yellow) Urine Clarity Clear (Clear) Urine pH 6.0 (5.0-9.0) Urine Specific [place] 1.012 (1.001-1.035) Urine Protein Negative (Negative) Urine Ketones Negative (Negative) Urine Blood Negative /uL (Negative) Urine Nitrite Negative (Negative) Urine Bilirubin Negative (Negative) Urine Urobilinogen Normal mg/dL (Negative) Urine Leukocyte Esterase Negative /uL (Negative) Urine RBC None seen /hpf (0 - 3) Urine WBC <1 /hpf (0 - 3) Urine Squamous Epithelial Cells None seen /hpf (<5) Urine Bacteria None seen /hpf (None Seen) Urine Glucose Normal mg/dL (Normal) Blood Gas Results Test 02/15/24 06:55 Arterial Blood pH 7.449 (7.350-7.450) FiO2 % 35.0 Microbiology Microbiology Date/Time Source Procedure Growth Status 02/14/24 12:04 Urine - [place] Urine Culture - Preliminary Resulted 02/12/24 13:30 Blood Blood Culture - Preliminary NO GROWTH AFTER 72 HOURS OF INCUBATION. Resulted 02/11/24 13:06 Nose MRSA Screen - Final Complete 02/11/24 09:19 Sputum Gram Stain - Final Complete 02/11/24 09:19 Sputum Respiratory Culture - Final Complete Assessment/Plan Assessment/Plan Acute stroke due to ischemia Acute hypercapnic hypoxic respiratory failure due to pneumonia and CHF Left lower lobe pneumonia Gram-positive/Gram-negative Septic shock due to pneumonia Acute CHF? diastolic ? ARDS Emphysema Pulmonary edema Hypertensive emergency Carotid artery stenosis: 50-69% stenosis left paroxysmal ICA DVT and PE ruled out Fatty liver Infrarenal aortic aneurysm:5.8 x 6.0 cm. Prostatomegaly Constipation Obesity Plan -on ventilator: AC/VC: Respiratory rate 18, tidal volume 550, FiO2 100%, peep 5. -ABG: PH 7.427, pCO2 46.2, HC03 29.8 -initiate antibiotic with cefepime, vancomycin, azithromycin. -on vasopressor Levophed: Target map greater than 65. -continue IV furosemide 20 mg b.i.d.. -echocardiogram: Left ventricular ejection fraction 60%, grade 1 diastolic dysfunction -neurology consultation: Aspirin, Lipitor, MRI, EEG. When stable. -cardiology consultation: Continue current management. -DVT prophylaxis: Lovenox -PUD prophylaxis: Protonix - Going for bronchoscopy today 02/14 Critical care time spent greater than 82 minutes. Plan discussed with: Other (nurse) Date of Service: Feb 15, 2024 Billing Provider: DAMIEN CID MD Common Visit Codes: [id number] CARE 30-74 MIN DAMIEN CID MD Feb 15, 2024 16:11
--- NOTE | 2024-02-15 18:07 | DVHPN2 ---
Progress Note - Dictate Date Seen: Feb 15, 2024 Medical Necessity Reason Pt with a Central, PICC or Fol: Yes The following are medically ne: Central Line, Roblero Catheter Reason for roblero catheter: Strict I&O Subjective Patient seen and examined at bedside. Sedated, intubated on mechanical ventilator. Overnight events reviewed. vital signs Vital Sign Date Time Temp Pulse Resp B/P (MAP) Pulse Ox O2 Delivery O2 Flow Rate FiO2 02/15/24 16:09 58 18 111/55 (73) 92 50 02/15/24 16:00 Mechanical Ventilator+ 02/15/24 12:30 98.4 98.4 Total Intake and Output 02/14/24 02/14/24 02/15/24 15:00 23:00 07:00 Intake Total 226.00 ml 378.50 ml 356.0 ml Output Total 1350 ml 1300 ml Balance 226.00 ml -971.50 ml -944.0 ml medications Current Medications Medications Dose Ordered Sig/Theodora Route Start Time Stop Time Status Last Admin Dose Admin Midazolam HCl 50 ml @ 1 mls/hr Q24H IV 02/11/24 09:15 02/15/24 16:17 5 MLS/HR Sodium Chloride 10 ml Q8HR IV 02/11/24 14:00 02/15/24 14:29 10 ML Enoxaparin Sodium 40 mg DAILY SC 02/11/24 10:00 02/15/24 10:55 40 MG Fentanyl Citrate 250 ml @ 2.5 mls/hr Q24H IV 02/11/24 10:15 02/15/24 16:17 10 MLS/HR Furosemide 20 mg BIDD IV 02/11/24 18:00 02/15/24 06:17 20 MG Azithromycin 250 ml @ 125 mls/hr DAILY IV 02/12/24 10:00 02/15/24 11:00 125 MLS/HR Norepinephrine Bitartrate 250 ml @ 3.75 mls/hr Q24H IV 02/11/24 18:15 02/14/24 06:02 11.25 MLS/HR Aspirin 300 mg DAILY FL 02/12/24 10:00 02/15/24 10:59 300 MG Atorvastatin Calcium 40 mg HS PO 02/12/24 22:00 02/14/24 22:04 40 MG Pantoprazole Sodium 40 mg DAILY IV 02/13/24 10:00 11/10/24 10:59 40 MG Cefepime/Dextrose 50 ml @ 12.5 mls/hr Q8HR IV 02/13/24 14:00 02/15/24 14:29 12.5 MLS/HR Lactulose 30 ml Q8HR PO 02/13/24 12:00 02/15/24 14:29 30 ML objective Gen.: Patient lying in bed in medical ICU. Sedated, intubated on mechanical ventilator. Head: Normocephalic, atraumatic. Eyes: PERRLA. Ears: Normal external anatomy. Throat: Endotracheal tube and orogastric tube in place. Neck: Supple, trachea midline. Chest: Transmitted breath sounds bilaterally. Decreased air entry bilaterally. No wheezing. Bibasilar crackles. Cardiovascular: Positive S1, positive S2. Regular rate and rhythm. Abdomen: Positive bowel sounds in all 4 quadrants. Soft, nontender, nondistended. : Roblero in place. Normal external genitalia. Rectal: Deferred. Skin: Warm, dry. Intact. Extremities: 2+ radial pulses bilaterally. No lower extremity edema. Neuro: Sedated. laboratory and microbiology Laboratory Tests 02/15/24 03:07 Test 02/15/24 03:07 Range/Units Serum Glucose 132 H 74-106 mg/dL Assessment/Plan Impression: Acute hypoxic respiratory failure secondary to pneumonia and CHF exacerbation Acute on chronic hypercarbic respiratory failure Acute respiratory distress syndrome On mechanical ventilator Pneumonia, likely Gram-negative CHF exacerbation Pulmonary edema Obesity with a BMI of 32.6 Acute stroke Events: Remains on vent support On assist control with a respiratory rate of 22, tidal volume 550, PEEP of 8, FiO2 at 35%. Reduce PEEP to 5. CXR demonstrates devices in place. Multifocal airspace disease. No pleural effusion or pneumothorax. ABG reviewed, compensated. Obtain consent for bronchoscopy. Sedated on Versed and Fentanyl. Off Levophed. Continue antibiotics - Ancef. Taper sedation as tolerated. Daily CPAP S/p bronchoscopy with right middle lobe bronchoalveolar lavage. See procedure note for details. Diurese w/ Lasix Monitor renal function Labs and imaging reviewed. Rest of plan as noted below. Plan: s/p intubation on mechanical ventilator CT head notable for hypodense pretty 10 x 8 mm in size in the simon with the left side from strenuous for acute infarct. Chronic periventricular ischemic changes. Cerebral and cerebellar atrophy likely age-related. Recommend neurology evaluation. CXR image and report reviewed. Devices in place. Cardiomegaly. Small left pleural effusion. Diffuse interstitial opacities likely pulmonary edema. Initial ABG was notable for acute on chronic hypercarbic respiratory failure, PaCO2 63.4 mmHg Repeat ABG reviewed. Compensated. Poor PF ratio. Vent settings; assist control with a respiratory rate of 22, tidal volume 550, PEEP of 5, FiO2 at 35%. Titrate FIO2 to keep O2 saturation above 92%. VAP bundle Daily ABG and CXR while intubated. Sedate for ventilator synchrony Pressors as necessary for hemodynamic support. Titrate to keep MAP above 65 mmHg/SBP above 90 mmHg. Continue antibiotics. F/u cultures. Diurese to euvolemia. Monitor ins/outs. On Lasix BID. Monitor renal function due to acute kidney injury. Monitor electrolytes. Supplement as necessary. Nutritional support. Accucheks, ISS. GI/DVT prophylaxis. Condition: Critical Prognosis: Poor given multiple comorbidities. Rest of plan per hospitalist and other consultants. A total of 35 minutes of critical care time was spent reviewing the patient record, examining the patient, making a diagnostic and therapeutic plan, discussing this plan with the medical personnel, following up on diagnostic studies and following the patient for clinical stability excluding any and all procedures. At least 50% of this time was spent in direct, [id number] contact. Thank you GIORGI Huffman for allowing me to participate in this patient's care. Further recommendations will depend on patient's clinical course. Please do not hesitate to contact me if you have any questions or concerns. This medical document was created using an electronic medical record system with [employer] dictation system. Although this document has been carefully reviewed, there may still be some phonetic and typographical errors. These areas are purely typographical due to imperfections of the software programs, and do not reflect any compromise in the patient's medical care. Dietary Evaluation Review Comments: 1) Recommend CCHO-60, Cardiac 2gNa LoFat LoCholesterol diet when medically feasible. 2) If GI accessible but PO feeding is not an option, consider glucerna 1.2 @45ml/hr. In 24 hrs, pt will be receiving 65g protein and 1296 kcal.Adj and increase infusion rate as tolerated. 3) If NPO > 7 days and GI is not accesible, consider TPN to support 75% of her energy and protein needs. Expected Outcomes/Goals: Gradual weight loss, improved glucose Plan discussed with: Other (RN Efrain/RT Ines) Critical Care Time(min): 35 ALEXANDER SCHWAB MD Feb 15, 2024 18:07
--- NOTE | 2024-02-15 19:15 | DVHPN2 ---
Progress Note - Dictate Date Seen: Feb 15, 2024 Medical Necessity Reason Pt with a Central, PICC or Fol: Yes The following are medically ne: Central Line, Roblero Catheter Reason for robleor catheter: Strict I&O Subjective Mr. Glass is a 78 years old gentleman with a history of obesity, the patient was taken to the [facility] on 02/11/2024 with a chief company of elevated blood pressure. I have seen and examined the patient, I have discussed with his nurse, the patient was remained intubated, on sedation, but is respond to stroke painful stimuli Versed 5 mg/hour, fentanyl 100 mcg/hour, FiO2: 50% UDS, 02/11/2024: Negative Plasma alcohol, 02/11/2024: 3.4 Urinalysis, 02/11/2024: Unremarkable ABG, 02/11/2024: Respiratory acidosis CBC, 02/11/2024: Unremarkable BMP 02/11/2024: Unremarkable HCO3, 02/11/2024: 29, 02/12/2024, 33 Liver function tests, 02/12/2024: Normal HbA1c, 02/11/2024: 7.8 TG/Chol/LDL/LDL/HDL, 02/11/2024: 190/171/109/42 TSH, 02/11/2024: 4.29 EEG, 02/12/2024: Moderately abnormal EEG Carotid Doppler, 02/11/2024: Normal left ventricular size and dimension. Normal left ventricular systolic function estimated ejection fraction 60%. There is a grade 1 diastolic dysfunction. Normal right ventricular size and dimension. Normal right ventricular systolic function. Normal biatrial size and dimension. The aortic valve is thickened and sclerotic there is [id number] aortic valve stenosis with a peak gradient of33 and mean gradient of 18 mm of mercury. The mitral valve is mildly thickened there is mild mitral valve regurgitation. There is mild tricuspid valve regurgitation. The pulmonary valve is grossly normal. No pericardial effusion. Carotid Doppler, 02/11/2024: 1. 50-69% stenosis at the level of the left proximal ICA. 2. No hemodynamically significant stenosis noted in the right carotid system. Chest x-ray, 02/11/2024: Lines and tubes in appropriate position. Cardiomegaly with small left pleural effusion and diffuse interstitial opacities which may reflect pulmonary edema CT head, 02/11/2024: 1. Well-defined hypodensity of approximate size 10 x 8 mm in the simon on the left side, concerning for acute infarct. 2. Chronic periventricular ischemic changes. 3. Cerebral and cerebellar atrophy, likely age-related. 4. Chronic and / or ancillary findings as described above. 5. Advised further evaluation with MRI brain without contrast. CT head, 02/15/2024: 1. No acute intracranial process. 2. Moderate acute pansinusitis. vital signs Vital Sign Date Time Temp Pulse Resp B/P (MAP) Pulse Ox O2 Delivery O2 Flow Rate FiO2 02/15/24 18:45 58 18 114/60 (78) 100 02/15/24 18:39 50 02/15/24 18:00 Mechanical Ventilator+ 02/15/24 16:00 98.3 98.3 Total Intake and Output 02/14/24 02/14/24 02/15/24 15:00 23:00 07:00 Intake Total 226.00 ml 378.50 ml 356.0 ml Output Total 1350 ml 1300 ml Balance 226.00 ml -971.50 ml -944.0 ml medications Current Medications Medications Dose Ordered Sig/Theodora Route Start Time Stop Time Status Last Admin Dose Admin Midazolam HCl 50 ml @ 1 mls/hr Q24H IV 02/11/24 09:15 02/15/24 16:17 5 MLS/HR Sodium Chloride 10 ml Q8HR IV 02/11/24 14:00 02/15/24 14:29 10 ML Enoxaparin Sodium 40 mg DAILY SC 02/11/24 10:00 02/15/24 10:55 40 MG Fentanyl Citrate 250 ml @ 2.5 mls/hr Q24H IV 02/11/24 10:15 02/15/24 16:17 10 MLS/HR Furosemide 20 mg BIDD IV 02/11/24 18:00 02/15/24 18:19 20 MG Azithromycin 250 ml @ 125 mls/hr DAILY IV 02/12/24 10:00 02/15/24 11:00 125 MLS/HR Norepinephrine Bitartrate 250 ml @ 3.75 mls/hr Q24H IV 02/11/24 18:15 02/14/24 06:02 11.25 MLS/HR Aspirin [address] 02/12/24 10:00 02/15/24 10:59 300 MG Atorvastatin Calcium 40 mg HS PO 02/12/24 22:00 02/14/24 22:04 40 MG Pantoprazole Sodium 40 mg DAILY IV 02/13/24 10:00 02/15/24 10:59 40 MG Cefepime/Dextrose 50 ml @ 12.5 mls/hr Q8HR IV 02/13/24 14:00 02/15/24 14:29 12.5 MLS/HR Lactulose 30 ml Q8HR PO 02/13/24 12:00 02/15/24 14:29 30 ML objective The patient is well-nourished and well-developed with no distress. The patient is intubated MENTAL STATUS: Subjective CRANIAL NERVES: Pupils are equal, round and nonreactive, 1-2mm. There are corneal reflexes and doll's eyes phenomenon. No signs of facial weakness. There are gagging or coughing reflexes SENSATION: No responses to pain stimuli. MOTOR: Normal tone in the upper and lower extremity. Normal muscle bulk. No fasciculations. No spontaneous movement. REFLEXES: Deep tendon reflexes are symmetrical. No pathological reflexes. CEREBELLAR/COORDINATION: Deferred GAIT/STATION: deferred. laboratory and microbiology Laboratory Tests 02/15/24 03:07 Test 02/15/24 03:07 Range/Units Serum Glucose 132 H 74-106 mg/dL Problem List Altered mental status Hypoxic encephalopathy Metabolic encephalopathy Respiratory failure Hypertension emergency Respiratory acidosis Sepsis, ? Septic shock Pneumonia Cellulitis in the legs Stroke per the 1st CT was not confirmed by the 2nd CT head on 02/15/2024 Left ICA moderate stenosis Assessment/Plan Monitoring Supportive treatments ICU care Follow-up CT head Consider MRI brain scan later Stabilize vitals/pressor drip Respiratory support/vent management Blood culture IV antibiotics Aspirin 81 mg daily/300 mg suppository daily Lipitor 40 mg daily DVT prophylaxis Pulmonology evaluation Cardiology evaluation Social service on case More recommendation per clinical course This medical document was created using an electronic medical record system with [employer] dictation system. Although this document has been carefully reviewed, there may still be some phonetic and typographical errors. These areas are purely typographical due to imperfections of the software programs, and do not reflect any compromise in the patient's medical care. Prognosis guarded Dietary Evaluation Review Comments: 1) Recommend CCHO-60, Cardiac 2gNa LoFat LoCholesterol diet when medically feasible. 2) If GI accessible but PO feeding is not an option, consider glucerna 1.2 @45ml/hr. In 24 hrs, pt will be receiving 65g protein and 1296 kcal.Adj and increase infusion rate as tolerated. 3) If NPO > 7 days and GI is not accesible, consider TPN to support 75% of her energy and protein needs. Expected Outcomes/Goals: Gradual weight loss, improved glucose Plan discussed with: Other Critical Care Time(min): 30 TRAV CRUZ MD Feb 15, 2024 19:15
[2024-02-16] VITALS (107 sets, daily range): BP systolic 96–145; BP diastolic 44–71; PULSE 53–89; RESP 16–26; TEMP 97.9–99.2; O2SAT 88–97
[2024-02-16 06:28] LABS: Base Excess 5.8 mmol/L (-2.0-3.0)
[2024-02-16 08:33] LABS: Basophils # (auto) 0.1 10 ^3/uL (0-0.2); Basophils % (auto) 0.9 % (0.0-2.0); Eosinophils # (auto) 0.4 10 ^3/uL (0-0.8); Eosinophils % (auto) 5.1 % (0.0-7.0); Hematocrit 44.4 % (41.0-53.0); Hemoglobin 14.6 g/dL (13.5-17.5); Lymphocytes # (auto) 1.4 10 ^3/uL (0.4-5.4); Lymphocytes % (auto) 17.2 % (10.0-50.0); Mean Corpuscular Hemoglobin 29.5 pg (28.0-32.0); Mean Corpuscular Volume 89.6 fL (80.0-100.0); Monocytes # (auto) 0.8 10 ^3/uL (0-1.3); Monocytes % (auto) 9.3 % (0.0-12.0); Neutrophils # (auto) 5.5 10 ^3/uL (1.6-8.6); Neutrophils % (auto) 67.5 % (37.0-80.0); Nucleated Red Blood Cells % 0.1 %; Platelet Count (auto) 308 10^3/uL (140-450); Red Blood Cells 4.95 10^6/uL (4.5-5.90); Red Cell Distribution Width 14.6 % (11.8-14.3); White Blood Cell 8.2 10^3/uL (4.4-10.8)
--- NOTE | 2024-02-16 08:40 | DVH ---
CHEST RADIOGRAPH Indication:INTUBATED/SEDATED. BRONCH YESTERDAY Technique: Single frontal view of the chest was obtained Comparison: XY CHEST PORTABLE on DOS: 02/15/24, XY CHEST XRAY 1 VIEW on DOS: 02/14/24, XY CHEST XRAY 1 VIEW on DOS: 02/13/24, XY CHEST PORTABLE on DOS: 02/12/24, XY CHEST PORTABLE on DOS: 02/11/24, XY CHEST PORTABLE on DOS: 02/15/24 FINDINGS: Lines and Tubes: Endotracheal tube and enteric catheter and right central venous catheter in satisfac tory position. Lungs: Multifocal airspace disease. Pleura: No effusion. No pneumothorax. Cardiomediastinal contours: Unremarkable Bones: Unremarkable IMPRESSION: Lines and tubes in satisfactory position. No significant interval change.
[2024-02-16 08:46] LABS: Alanine Aminotransferase 16 U/L (7-40); Albumin 3.6 g/dL (3.2-4.8); Alkaline Phosphatase 90 U/L (46-116); Anion Gap 5 (5-15); Aspartate Aminotransferase 29 U/L (13-40); BUN/Creatinine Ratio 19.2 (10.0-20.0); Bilirubin, Total 0.5 mg/dL (0.2-1.0); Blood Urea Nitrogen 20 mg/dL (9-23); Calcium 9.4 mg/dL (8.7-10.4); Carbon Dioxide 32 mmol/L (20-31); Chloride 99 mmol/L (98-107); Glucose 108 mg/dL (74-106); Magnesium 1.8 mg/dL (1.6-2.6); Phosphorus 3.1 mg/dL (2.4-5.1); Potassium 3.6 mmol/L (3.5-5.1); Sodium 136 mmol/L (136-145)
--- NOTE | 2024-02-16 10:56 | DVHPN2 ---
Progress Note - Dictate Date Seen: Feb 16, 2024 Medical Necessity Reason Pt with a Central, PICC or Fol: Yes The following are medically ne: Central Line, Roblero Catheter Reason for roblero catheter: Strict I&O Subjective Mr. Glass is a 78 years old gentleman with a history of obesity, the patient was taken to the [facility] on 02/11/2024 with a chief company of elevated blood pressure. I have seen and examined the patient, I have discussed with his nurse, the patient was remained intubated, We just stopped sedation on him, he is respond to light touch Versed 5 mg/hour, fentanyl 100 mcg/hour, FiO2: 50% UDS, 02/11/2024: Negative Plasma alcohol, 02/11/2024: 3.4 Urinalysis, 02/11/2024: Unremarkable ABG, 02/11/2024: Respiratory acidosis CBC, 02/11/2024: Unremarkable BMP 02/11/2024: Unremarkable HCO3, 02/11/2024: 29, 02/12/2024, 33 Liver function tests, 02/12/2024: Normal HbA1c, 02/11/2024: 7.8 TG/Chol/LDL/LDL/HDL, 02/11/2024: 190/171/109/42 TSH, 02/11/2024: 4.29 EEG, 02/12/2024: Moderately abnormal EEG Carotid Doppler, 02/11/2024: Normal left ventricular size and dimension. Normal left ventricular systolic function estimated ejection fraction 60%. There is a grade 1 diastolic dysfunction. Normal right ventricular size and dimension. Normal right ventricular systolic function. Normal biatrial size and dimension. The aortic valve is thickened and sclerotic there is [id number] aortic valve stenosis with a peak gradient of33 and mean gradient of 18 mm of mercury. The mitral valve is mildly thickened there is mild mitral valve regurgitation. There is mild tricuspid valve regurgitation. The pulmonary valve is grossly normal. No pericardial effusion. Carotid Doppler, 02/11/2024: 1. 50-69% stenosis at the level of the left proximal ICA. 2. No hemodynamically significant stenosis noted in the right carotid system. Chest x-ray, 02/11/2024: Lines and tubes in appropriate position. Cardiomegaly with small left pleural effusion and diffuse interstitial opacities which may reflect pulmonary edema CT head, 02/11/2024: 1. Well-defined hypodensity of approximate size 10 x 8 mm in the siomn on the left side, concerning for acute infarct. 2. Chronic periventricular ischemic changes. 3. Cerebral and cerebellar atrophy, likely age-related. 4. Chronic and / or ancillary findings as described above. 5. Advised further evaluation with MRI brain without contrast. CT head, 02/15/2024: 1. No acute intracranial process. 2. Moderate acute pansinusitis. vital signs Vital Sign Date Time Temp Pulse Resp B/P (MAP) Pulse Ox O2 Delivery O2 Flow Rate FiO2 02/16/24 09:26 82 21 129/65 (86) 92 50 02/16/24 08:00 98.5 98.5 02/16/24 08:00 Mechanical Ventilator+ Total Intake and Output 02/15/24 02/15/24 02/16/24 15:00 23:00 07:00 Intake Total 421 ml 244.79 ml 258.71 ml Output Total 900 ml 650 ml Balance 421 ml -655.21 ml -391.29 ml medications Current Medications Medications Dose Ordered Sig/Theodora Route Start Time Stop Time Status Last Admin Dose Admin Midazolam HCl 50 ml @ 1 mls/hr Q24H IV 02/11/24 09:15 02/16/24 02:31 5 MLS/HR Sodium Chloride 10 ml Q8HR IV 02/11/24 14:00 02/16/24 05:33 10 ML Enoxaparin Sodium 40 mg DAILY SC 02/11/24 10:00 02/16/24 10:31 40 MG Fentanyl Citrate 250 ml @ 2.5 mls/hr Q24H IV 02/11/24 10:15 02/15/24 16:17 10 MLS/HR Furosemide 20 mg BIDD IV 02/11/24 18:00 02/16/24 05:33 20 MG Azithromycin 250 ml @ 125 mls/hr DAILY IV 02/12/24 10:00 02/16/24 10:29 125 MLS/HR Norepinephrine Bitartrate 250 ml @ 3.75 mls/hr Q24H IV 02/11/24 18:15 02/14/24 06:02 11.25 MLS/HR Aspirin 300 mg DAILY MA 02/12/24 10:00 02/16/24 10:30 300 MG Atorvastatin Calcium 40 mg HS PO 02/12/24 22:00 02/15/24 21:49 40 MG Pantoprazole Sodium 40 mg DAILY IV 02/13/24 10:00 02/16/24 10:29 40 MG Cefepime/Dextrose 50 ml @ 12.5 mls/hr Q8HR IV 02/13/24 14:00 02/16/24 05:33 12.5 MLS/HR Lactulose 30 ml Q8HR PO 02/13/24 12:00 02/16/24 05:33 30 ML objective The patient is well-nourished and well-developed with no distress. The patient is intubated MENTAL STATUS: Subjective CRANIAL NERVES: Pupils are equal, round and nonreactive, 1-2mm. There are corneal reflexes and doll's eyes phenomenon. No signs of facial weakness. There are gagging or coughing reflexes SENSATION: No responses to pain stimuli. MOTOR: Normal tone in the upper and lower extremity. Normal muscle bulk. No fasciculations. No spontaneous movement. REFLEXES: Deep tendon reflexes are symmetrical. No pathological reflexes. CEREBELLAR/COORDINATION: Deferred GAIT/STATION: deferred. laboratory and microbiology Laboratory Tests 02/16/24 08:20 Test 02/16/24 08:20 Range/Units Serum Glucose 108 H 74-106 mg/dL Problem List Altered mental status Hypoxic encephalopathy Metabolic encephalopathy Respiratory failure Hypertension emergency Respiratory acidosis Sepsis, ? Septic shock Pneumonia Cellulitis in the legs Stroke per the 1st CT was not confirmed by the 2nd CT head on 02/15/2024 Left ICA moderate stenosis Assessment/Plan Monitoring Supportive treatments ICU care Consider MRI brain scan later Stabilize vitals/pressor drip Respiratory support/vent management Blood culture IV antibiotics Aspirin 81 mg daily/300 mg suppository daily Lipitor 40 mg daily DVT prophylaxis Pulmonology evaluation Cardiology evaluation Social service on case More recommendation per clinical course This medical document was created using an electronic medical record system with [employer] dictation system. Although this document has been carefully reviewed, there may still be some phonetic and typographical errors. These areas are purely typographical due to imperfections of the software programs, and do not reflect any compromise in the patient's medical care. Prognosis guarded Dietary Evaluation Review Comments: 1) Recommend CCHO-60, Cardiac 2gNa LoFat LoCholesterol diet when medically feasible. 2) If GI accessible but PO feeding is not an option, consider glucerna 1.2 @45ml/hr. In 24 hrs, pt will be receiving 65g protein and 1296 kcal.Adj and increase infusion rate as tolerated. 3) If NPO > 7 days and GI is not accesible, consider TPN to support 75% of her energy and protein needs. Expected Outcomes/Goals: Gradual weight loss, improved glucose Plan discussed with: Other TRAV CRUZ MD Feb 16, 2024 10:56
[2024-02-16 14:20] LABS: COVID19 ANTIGEN SOFIA FIA NEGATIVE (NEGATIVE); Rapid Influenza A Negative (Negative); Rapid Influenza B Negative (Negative)
[2024-02-16] MEDS: Glucerna 1.2 Cal 1Liter BOTTLE GT SCH (14:54)
--- NOTE | 2024-02-16 17:20 | DVHPNRES ---
Progress Note Date Seen: Feb 16, 2024 Resident Creating Document: SAMANTHA RAMIREZ RESIDENT Medical Necessity Reason Pt with a Central, PICC or Fol: Yes The following are medically ne: Central Line, Roblero Catheter Reason for roblero catheter: Strict I&O Subjective Review of Systems Patient is 78-year-old male with unknown medical history of brought to the hospital via EMS for hypertension and found to be outside at convenience store . During further evaluation emergency department, patient was diagnosed with acute stroke due to ischemia and pneumonia. Later patient was intubated on put on ventilator for worsening respiratory distress, protect of airway with diagnosis of acute stroke, pneumonia and CHF exacerbation. Past medical history: Unknown Past surgical history: Unknown Patient seen and examined in ICU department. Patient is currently on ventilator. Currently requiring vasopressor Levophed. No new events. Objective vital signs Vital Sign Date Time Temp Pulse Resp B/P (MAP) Pulse Ox O2 Delivery O2 Flow Rate FiO2 02/16/24 17:00 58 18 105/57 (73) 96 02/16/24 16:06 50 02/16/24 16:00 Mechanical Ventilator+ 02/16/24 16:00 98.4 98.4 Total Intake and Output 02/15/24 02/15/24 02/16/24 15:00 23:00 07:00 Intake Total 421 ml 244.79 ml 258.71 ml Output Total 900 ml 650 ml Balance 421 ml -655.21 ml -391.29 ml medications Current Medications Medications Dose Ordered Sig/Theodora Route Start Time Stop Time Status Last Admin Dose Admin Midazolam HCl 50 ml @ 1 mls/hr Q24H IV 02/11/24 09:15 02/16/24 15:03 5 MLS/HR Sodium Chloride 10 ml Q8HR IV 02/11/24 14:00 02/16/24 13:11 10 ML Enoxaparin Sodium 40 mg DAILY SC 02/11/24 10:00 02/16/24 10:31 40 MG Fentanyl Citrate 250 ml @ 2.5 mls/hr Q24H IV 02/11/24 10:15 02/16/24 15:03 10 MLS/HR Furosemide 20 mg BIDD IV 02/11/24 18:00 02/16/24 05:33 20 MG Norepinephrine Bitartrate 250 ml @ 3.75 mls/hr Q24H IV 02/11/24 18:15 02/14/24 06:02 11.25 MLS/HR Atorvastatin Calcium 40 mg HS PO 02/12/24 22:00 02/15/24 21:49 40 MG Pantoprazole Sodium 40 mg DAILY IV 02/13/24 10:00 02/16/24 10:29 40 MG Cefepime/Dextrose 50 ml @ 12.5 mls/hr Q8HR IV 02/13/24 14:00 02/16/24 13:11 12.5 MLS/HR Lactulose 30 ml Q8HR PO 02/13/24 12:00 02/16/24 13:12 30 ML Enteral Nutritional Formula 1,000 ml 45ML/HR GT 02/16/24 12:45 02/16/24 14:54 1,000 ML Gentamicin Sulfate 1 drop Q4HR EACHEYE 02/16/24 18:00 Aspirin 81 mg DAILY PO 02/17/24 10:00 Examination General Appearance: RASS -3, sedated and on ventilation. Head Exam: Normal inspection Neck Exam: Normal inspection. Non-tender. Normal alignment Pulmonary/Respiratory: Chest non-tender. bilateral crackles over bilateral lung lobes. Cardiovascular/Chest: Regular rate and rhythm. No murmurs. No JVD. Peripheral Pulses: 2+ Radial (R). 2+ Radial (L). 2+ Pedal (R). 2+ Pedal (L) Abdominal Exam: Normal bowel sounds. Soft. Nontender. No hepatospenomegaly. No masses, distended abdomin, no fluid thrill. Ankle Exam: Negative ankle edema Lower extremities: 2+ lower extremity edema Neuro/Mental Status: Appropriate pupillary reflex, other cranial nerve can not be assessed. laboratory and microbiology Laboratory Tests 02/16/24 08:20 Test 02/16/24 08:20 Range/Units Serum Glucose 108 H 74-106 mg/dL Microbiology Date/Time Source Procedure Growth Status 02/15/24 10:20 Bronchial Washings Gram Stain - Final Resulted 02/15/24 10:20 Bronchial Washings Respiratory Culture - Preliminary Resulted 02/14/24 12:04 Urine - Roblero Port Urine Culture - Final Complete 02/12/24 13:30 Blood Blood Culture - Preliminary NO GROWTH AFTER 72 HOURS OF INCUBATION. Resulted 02/11/24 13:06 Nose MRSA Screen - Final Complete Problem List/Assessment/Plan Problem List/Assessment/Plan Acute stroke due to ischemia Acute hypercapnic hypoxic respiratory failure due to pneumonia and CHF Left lower lobe pneumonia Gram-positive/Gram-negative Septic shock due to pneumonia Acute CHF? diastolic ? ARDS Emphysema Pulmonary edema Hypertensive emergency Carotid artery stenosis: 50-69% stenosis left paroxysmal ICA DVT and PE ruled out Fatty liver Infrarenal aortic aneurysm:5.8 x 6.0 cm. Prostatomegaly Constipation Obesity Plan -on ventilator: AC/VC: Respiratory rate 22, tidal volume 550, FiO2 55 %, peep 5. -initiate antibiotic with cefepime, vancomycin, azithromycin. -on vasopressor Levophed: Target map greater than 65. Of Levophed. -continue IV furosemide 20 mg b.i.d.. -echocardiogram: Left ventricular ejection fraction 60%, grade 1 diastolic dysfunction -neurology consultation: Aspirin, Lipitor, MRI, EEG. When stable. -cardiology consultation: Continue current management. -DVT prophylaxis: Lovenox -PUD prophylaxis: Protonix Critical care time spent greater than 82 minutes. -plan was to do CPAP trial however patient was desatting, we will try to do CPAP trial again tomorrow morning. -social service has been consulted given there is no family to reach out. Continue current management with mechanical ventilation, IV antibiotic, IV Lasix, aspirin, Lipitor, Lovenox and Protonix. Patient continued requiring vasopressor at this point, re-evaluate in a.m.. Continue with current management. Plan discussed with Dr Estrella Plan discussed with: Other (RN) My Orders My Orders Orders - SAMANTHA RAMIREZ RESIDENT Procedure Category Date Status Time Chest Xray 1 View XY 02/16/24 Resulted 07:16 Aspirin Tablet PHA 02/17/24 In Process 10:00 Complete Blood Count LAB 02/17/24 Verified 04:00 Basic Metabolic Panel LAB 02/17/24 Verified 04:00 Chest Xray 1 View XY 02/17/24 Verified 04:00 Abg W/ Co-Ox RT 02/17/24 Verified 04:00 Dietary Evaluation Review Comments: 1) Recommend CCHO-60, Cardiac 2gNa LoFat LoCholesterol diet when medically feasible. 2) If GI accessible but PO feeding is not an option, consider glucerna 1.2 @45ml/hr. In 24 hrs, pt will be receiving 65g protein and 1296 kcal.Adj and increase infusion rate as tolerated. 3) If NPO > 7 days and GI is not accesible, consider TPN to support 75% of her energy and protein needs. Expected Outcomes/Goals: Gradual weight loss, improved glucose Date of Service: Feb 16, 2024 Billing Provider: ESTELLE ESTRELLA MD Common Visit Codes: 66059-AASQLURI CARE 30-74 MIN SAMANTHA RAMIREZ RESIDENT Feb 16, 2024 17:20 ESTELLE ESTRELLA MD Feb 18, 2024 13:14
[2024-02-16] MEDS: GENTAMICIN OPTH sol 0.3% 5ml EACHEYE SCH (18:11)
[2024-02-17] VITALS (106 sets, daily range): BP systolic 104–149; BP diastolic 48–76; PULSE 59–116; RESP 14–28; TEMP 97.9–98.9; O2SAT 87–99
[2024-02-17 03:59] LABS: Basophils # (auto) 0 10 ^3/uL (0-0.2); Basophils % (auto) 0.2 % (0.0-2.0); Eosinophils # (auto) 0.5 10 ^3/uL (0-0.8); Eosinophils % (auto) 5.3 % (0.0-7.0); Hematocrit 42.1 % (41.0-53.0); Hemoglobin 14.3 g/dL (13.5-17.5); Lymphocytes # (auto) 1.3 10 ^3/uL (0.4-5.4); Lymphocytes % (auto) 15.3 % (10.0-50.0); Mean Corpuscular Hemoglobin 30.3 pg (28.0-32.0); Mean Corpuscular Hgb Conc. 33.9 g/dL (32.0-36.0); Mean Corpuscular Volume 89.5 fL (80.0-100.0); Monocytes # (auto) 0.9 10 ^3/uL (0-1.3); Neutrophils # (auto) 6.1 10 ^3/uL (1.6-8.6); Neutrophils % (auto) 69.2 % (37.0-80.0); Nucleated Red Blood Cells % 0.1 %; Platelet Count (auto) 285 10^3/uL (140-450); Red Cell Distribution Width 14.3 % (11.8-14.3); White Blood Cell 8.7 10^3/uL (4.4-10.8)
--- NOTE | 2024-02-17 04:08 | DVH ---
CHEST RADIOGRAPH Indication:on vent Technique: Single frontal view of the chest was obtained Comparison: XY CHEST XRAY 1 VIEW on DOS: 02/16/24, XY CHEST PORTABLE on DOS: 02/15/24, XY CHEST XRAY 1 VIEW on DOS: 02/14/24, XY CHEST XRAY 1 VIEW on DOS: 02/13/24, XY CHEST PORTABLE on DOS: 02/12/24, XY C HEST XRAY 1 VIEW on DOS: 02/16/24 FINDINGS: Lines and Tubes: Endotracheal tube and enteric catheter and right central venous catheter in satisfac tory position. Lungs: Multifocal airspace disease. Pleura: No effusion. No pneumothorax. Cardiomediastinal contours: Unremarkable Bones: Unremarkable IMPRESSION: Lines and tubes in satisfactory position. No significant interval change.
[2024-02-17 04:10] LABS: Anion Gap 6 (5-15); Calcium 9.3 mg/dL (8.7-10.4); Carbon Dioxide 32 mmol/L (20-31); Chloride 98 mmol/L (98-107); Potassium 3.5 mmol/L (3.5-5.1); Sodium 136 mmol/L (136-145)
[2024-02-17 04:16] LABS: BUN/Creatinine Ratio 21.3 (10.0-20.0); Blood Urea Nitrogen 23 mg/dL (9-23); Glucose 115 mg/dL (74-106)
[2024-02-17 06:30] LABS: Base Excess 2.6 mmol/L (-2.0-3.0)
[2024-02-17] MEDS ORDERED: ASPirin 325 MG TAB PO SCH (10:00)
--- NOTE | 2024-02-17 10:22 | DVHPN2 ---
Progress Note - Dictate Date Seen: Feb 17, 2024 Medical Necessity Reason Pt with a Central, PICC or Fol: Yes The following are medically ne: Central Line, Roblero Catheter Reason for roblero catheter: Strict I&O Subjective Mr. Glass is a 78 years old gentleman with a history of obesity, the patient was taken to the [facility] on 02/11/2024 with a chief company of elevated blood pressure. I have seen and examined the patient, I have discussed with his nurse, the patient was remained intubated, He was respond to light touch stimuli, Versed 2 mg/hour, fentanyl 25 mcg/hour, FiO2: 50% UDS, 02/11/2024: Negative Plasma alcohol, 02/11/2024: 3.4 Urinalysis, 02/11/2024: Unremarkable ABG, 02/11/2024: Respiratory acidosis CBC, 02/11/2024: Unremarkable BMP 02/11/2024: Unremarkable HCO3, 02/11/2024: 29, 02/12/2024, 33 Liver function tests, 02/12/2024: Normal HbA1c, 02/11/2024: 7.8 TG/Chol/LDL/LDL/HDL, 02/11/2024: 190/171/109/42 TSH, 02/11/2024: 4.29 EEG, 02/12/2024: Moderately abnormal EEG Carotid Doppler, 02/11/2024: Normal left ventricular size and dimension. Normal left ventricular systolic function estimated ejection fraction 60%. There is a grade 1 diastolic dysfunction. Normal right ventricular size and dimension. Normal right ventricular systolic function. Normal biatrial size and dimension. The aortic valve is thickened and sclerotic there is [id number] aortic valve stenosis with a peak gradient of33 and mean gradient of 18 mm of mercury. The mitral valve is mildly thickened there is mild mitral valve regurgitation. There is mild tricuspid valve regurgitation. The pulmonary valve is grossly normal. No pericardial effusion. Carotid Doppler, 02/11/2024: 1. 50-69% stenosis at the level of the left proximal ICA. 2. No hemodynamically significant stenosis noted in the right carotid system. Chest x-ray, 02/11/2024: Lines and tubes in appropriate position. Cardiomegaly with small left pleural effusion and diffuse interstitial opacities which may reflect pulmonary edema CT head, 02/11/2024: 1. Well-defined hypodensity of approximate size 10 x 8 mm in the simon on the left side, concerning for acute infarct. 2. Chronic periventricular ischemic changes. 3. Cerebral and cerebellar atrophy, likely age-related. 4. Chronic and / or ancillary findings as described above. 5. Advised further evaluation with MRI brain without contrast. CT head, 02/15/2024: 1. No acute intracranial process. 2. Moderate acute pansinusitis. vital signs Vital Sign Date Time Temp Pulse Resp B/P (MAP) Pulse Ox O2 Delivery O2 Flow Rate FiO2 02/17/24 09:51 80 18 126/71 (89) 92 55 02/17/24 06:00 Mechanical Ventilator+ 02/17/24 04:15 98.3 98.3 Total Intake and Output 02/16/24 02/16/24 02/17/24 15:00 23:00 07:00 Intake Total 376.5 ml 188.5 ml 372.5 ml Output Total 475 ml 900 ml Balance 376.5 ml -286.5 ml -527.5 ml medications Current Medications Medications Dose Ordered Sig/Theodora Route Start Time Stop Time Status Last Admin Dose Admin Midazolam HCl 50 ml @ 1 mls/hr Q24H IV 02/11/24 09:15 02/17/24 05:15 3 MLS/HR Sodium Chloride 10 ml Q8HR IV 02/11/24 14:00 02/17/24 05:15 10 ML Enoxaparin Sodium 40 mg DAILY SC 02/11/24 10:00 02/16/24 10:31 40 MG Fentanyl Citrate 250 ml @ 2.5 mls/hr Q24H IV 02/11/24 10:15 02/16/24 15:03 10 MLS/HR Furosemide 20 mg BIDD IV 02/11/24 18:00 02/17/24 05:14 20 MG Norepinephrine Bitartrate 250 ml @ 3.75 mls/hr Q24H IV 02/11/24 18:15 02/14/24 06:02 11.25 MLS/HR Atorvastatin Calcium 40 mg HS PO 02/12/24 22:00 02/15/24 21:49 40 MG Pantoprazole Sodium 40 mg DAILY IV 02/13/24 10:00 02/16/24 10:29 40 MG Cefepime/Dextrose 50 ml @ 12.5 mls/hr Q8HR IV 02/13/24 14:00 02/17/24 05:15 12.5 MLS/HR Lactulose 30 ml Q8HR PO 02/13/24 12:00 02/17/24 05:15 30 ML Enteral Nutritional Formula 1,000 ml 45ML/HR GT 02/16/24 12:45 02/16/24 14:54 1,000 ML Gentamicin Sulfate 1 drop Q4HR EACHEYE 02/16/24 18:00 02/17/24 05:14 1 DROP Aspirin 81 mg DAILY PO 02/17/24 10:00 objective The patient is well-nourished and well-developed with no distress. The patient is intubated MENTAL STATUS: Subjective CRANIAL NERVES: Pupils are equal, round and nonreactive, 1-2mm. There are corneal reflexes and doll's eyes phenomenon. No signs of facial weakness. There are gagging or coughing reflexes SENSATION: No responses to pain stimuli. MOTOR: Normal tone in the upper and lower extremity. Normal muscle bulk. No fasciculations. No spontaneous movement. REFLEXES: Deep tendon reflexes are symmetrical. No pathological reflexes. CEREBELLAR/COORDINATION: Deferred GAIT/STATION: deferred. laboratory and microbiology Laboratory Tests 02/17/24 03:36 Test 02/17/24 03:36 Range/Units Serum Glucose 115 H 74-106 mg/dL Problem List Altered mental status Hypoxic encephalopathy Metabolic encephalopathy Respiratory failure Hypertension emergency Respiratory acidosis Sepsis, ? Septic shock Pneumonia Cellulitis in the legs Stroke per the 1st CT, not confirmed by the 2nd CT head on 02/15/2024 Left ICA moderate stenosis Assessment/Plan Monitoring Supportive treatments ICU care Consider MRI brain scan later Stabilize vitals/pressor drip Respiratory support/vent management Blood culture IV antibiotics Aspirin 81 mg daily/300 mg suppository daily Lipitor 40 mg daily DVT prophylaxis Pulmonology evaluation Cardiology evaluation Social service on case More recommendation per clinical course This medical document was created using an electronic medical record system with [employer] dictation system. Although this document has been carefully reviewed, there may still be some phonetic and typographical errors. These areas are purely typographical due to imperfections of the software programs, and do not reflect any compromise in the patient's medical care. Prognosis guarded Dietary Evaluation Review Comments: 1) Recommend CCHO-60, Cardiac 2gNa LoFat LoCholesterol diet when medically feasible. 2) If GI accessible but PO feeding is not an option, consider glucerna 1.2 @45ml/hr. In 24 hrs, pt will be receiving 65g protein and 1296 kcal.Adj and increase infusion rate as tolerated. 3) If NPO > 7 days and GI is not accesible, consider TPN to support 75% of her energy and protein needs. Expected Outcomes/Goals: Gradual weight loss, improved glucose Plan discussed with: Other TRAV CRUZ MD Feb 17, 2024 10:22
[2024-02-17] MEDS: ASPirin 325 MG TAB PO SCH (11:23)
--- NOTE | 2024-02-17 17:11 | DVHPNRES ---
Progress Note Date Seen: Feb 17, 2024 Resident Creating Document: SAMANTHA RAMIREZ RESIDENT Medical Necessity Reason Pt with a Central, PICC or Fol: Yes The following are medically ne: Central Line, Roblero Catheter Reason for roblero catheter: Strict I&O Subjective Review of Systems Patient is 78-year-old male with unknown medical history of brought to the hospital via EMS for hypertension and found to be outside at convenience store . During further evaluation emergency department, patient was diagnosed with acute stroke due to ischemia and pneumonia. Later patient was intubated on put on ventilator for worsening respiratory distress, protect of airway with diagnosis of acute stroke, pneumonia and CHF exacerbation. Past medical history: Unknown Past surgical history: Unknown Patient seen and examined in ICU department. Patient is currently on ventilator. Patient oxygen requirement increased. Plan canceled for CPAP trial today. Objective vital signs Vital Sign Date Time Temp Pulse Resp B/P (MAP) Pulse Ox O2 Delivery O2 Flow Rate FiO2 02/17/24 16:07 62 18 117/64 (81) 97 55 02/17/24 14:00 Mechanical Ventilator+ 02/17/24 12:00 98.1 98.1 Total Intake and Output 02/16/24 02/16/24 02/17/24 15:00 23:00 07:00 Intake Total 376.5 ml 188.5 ml 380.5 ml Output Total 475 ml 900 ml Balance 376.5 ml -286.5 ml -519.5 ml medications Current Medications Medications Dose Ordered Sig/Theodora Route Start Time Stop Time Status Last Admin Dose Admin Midazolam HCl 50 ml @ 1 mls/hr Q24H IV 02/11/24 09:15 02/17/24 16:32 6 MLS/HR Sodium Chloride 10 ml Q8HR IV 02/11/24 14:00 02/17/24 15:02 10 ML Enoxaparin Sodium 40 mg DAILY SC 02/11/24 10:00 02/17/24 11:23 40 MG Fentanyl Citrate 250 ml @ 2.5 mls/hr Q24H IV 02/11/24 10:15 02/16/24 15:03 10 MLS/HR Norepinephrine Bitartrate 250 ml @ 3.75 mls/hr Q24H IV 02/11/24 18:15 02/14/24 06:02 11.25 MLS/HR Atorvastatin Calcium 40 mg HS PO 02/12/24 22:00 02/15/24 21:49 40 MG Pantoprazole Sodium 40 mg DAILY IV 02/13/24 10:00 02/17/24 11:23 40 MG Cefepime/Dextrose 50 ml @ 12.5 mls/hr Q8HR IV 02/13/24 14:00 02/17/24 15:01 12.5 MLS/HR Lactulose 30 ml Q8HR PO 02/13/24 12:00 02/17/24 15:01 30 ML Enteral Nutritional Formula 1,000 ml 45ML/HR GT 02/16/24 12:45 02/16/24 14:54 1,000 ML Gentamicin Sulfate 1 drop Q4HR EACHEYE 02/16/24 18:00 02/17/24 15:01 1 DROP Aspirin 81 mg DAILY PO 02/17/24 10:00 02/17/24 11:23 81 MG Furosemide 40 mg BIDD IV 02/17/24 18:00 Examination General Appearance: RASS -3, sedated and on ventilation. Head Exam: Normal inspection Neck Exam: Normal inspection. Non-tender. Normal alignment Pulmonary/Respiratory: Chest non-tender. bilateral crackles over bilateral lung lobes. Cardiovascular/Chest: Regular rate and rhythm. No murmurs. No JVD. Peripheral Pulses: 2+ Radial (R). 2+ Radial (L). 2+ Pedal (R). 2+ Pedal (L) Abdominal Exam: Normal bowel sounds. Soft. Nontender. No hepatospenomegaly. No masses, distended abdomin, no fluid thrill. Ankle Exam: Negative ankle edema Lower extremities: 2+ lower extremity edema Neuro/Mental Status: Appropriate pupillary reflex, other cranial nerve can not be assessed. laboratory and microbiology Laboratory Tests 02/17/24 03:36 Test 02/17/24 03:36 Range/Units Serum Glucose 115 H 74-106 mg/dL Microbiology Date/Time Source Procedure Growth Status 02/15/24 10:20 Bronchial Washings Gram Stain - Final Resulted 02/15/24 10:20 Bronchial Washings Respiratory Culture - Preliminary Resulted 02/14/24 12:04 Urine - Roblero Port Urine Culture - Final Complete 02/12/24 13:30 Blood Blood Culture - Final NO GROWTH AFTER 5 DAYS OF INCUBATION. Complete 02/11/24 13:06 Nose MRSA Screen - Final Complete Problem List/Assessment/Plan Problem List/Assessment/Plan Acute stroke due to ischemia Acute hypercapnic hypoxic respiratory failure due to pneumonia and CHF Left lower lobe pneumonia Gram-positive/Gram-negative Septic shock due to pneumonia Acute CHF? diastolic ? ARDS Emphysema Pulmonary edema Hypertensive emergency Carotid artery stenosis: 50-69% stenosis left paroxysmal ICA DVT and PE ruled out Fatty liver Infrarenal aortic aneurysm:5.8 x 6.0 cm. Prostatomegaly Constipation Obesity Plan -on ventilator: AC/VC: Respiratory rate 18, tidal volume 550, FiO2 55 %, peep 5. -initiate antibiotic with cefepime -on vasopressor Levophed: Target map greater than 65. Of Levophed. -continue IV furosemide 40 mg b.i.d.. -echocardiogram: Left ventricular ejection fraction 60%, grade 1 diastolic dysfunction -neurology consultation: Aspirin, Lipitor, MRI, EEG. When stable. -cardiology consultation: Continue current management. -DVT prophylaxis: Lovenox -PUD prophylaxis: Protonix Critical care time spent greater than 81 minutes. -given patient was desatting, Lasix dose increased to 40 mg b.i.d., plan to do CPAP trial again if he is stable early in the morning. Cpap trial tomorrow. -social service has been consulted given there is no family to reach out. Continue current management with mechanical ventilation, IV antibiotic, IV Lasix, aspirin, Lipitor, Lovenox and Protonix. Plan discussed with Dr Estrella Plan discussed with: Other (RN) My Orders My Orders Orders - SAMANTHA RAMIREZ RESIDENT Procedure Category Date Status Time Chest Xray 1 View XY 02/17/24 Resulted 04:00 Abg W/ Co-Ox RT 02/17/24 Logged 04:00 Respiratory Misc. RT 02/17/24 Transmitted Order 08:20 Furosemide Injection PHA 02/17/24 In Process (Lasix Injection) 18:00 Dietary Evaluation Review Comments: 1) Recommend CCHO-60, Cardiac 2gNa LoFat LoCholesterol diet when medically feasible. 2) If GI accessible but PO feeding is not an option, consider glucerna 1.2 @45ml/hr. In 24 hrs, pt will be receiving 65g protein and 1296 kcal.Adj and increase infusion rate as tolerated. 3) If NPO > 7 days and GI is not accesible, consider TPN to support 75% of her energy and protein needs. Expected Outcomes/Goals: Gradual weight loss, improved glucose Date of Service: Feb 17, 2024 Billing Provider: ESTELLE ESTRELLA MD Common Visit Codes: [id number] CARE 30-74 MIN SAMANTHA RAMIREZ RESIDENT Feb 17, 2024 17:11 ESTELLE ESTRELLA MD Feb 18, 2024 13:18
[2024-02-17] MEDS: FUROSEMIDE 20 MG/2 ML VIAL IV SCH (18:20)
[2024-02-18] VITALS (107 sets, daily range): BP systolic 99–138; BP diastolic 49–68; PULSE 55–92; RESP 13–31; TEMP 97.2–99.5; O2SAT 83–97
[2024-02-18 01:06] LABS: Basophils # (auto) 0.1 10 ^3/uL (0-0.2); Basophils % (auto) 0.8 % (0.0-2.0); Eosinophils # (auto) 0.4 10 ^3/uL (0-0.8); Hematocrit 43.4 % (41.0-53.0); Hemoglobin 14.7 g/dL (13.5-17.5); Lymphocytes # (auto) 1.3 10 ^3/uL (0.4-5.4); Lymphocytes % (auto) 12.8 % (10.0-50.0); Mean Corpuscular Hgb Conc. 33.9 g/dL (32.0-36.0); Mean Corpuscular Volume 88.5 fL (80.0-100.0); Monocytes # (auto) 1.1 10 ^3/uL (0-1.3); Monocytes % (auto) 10.2 % (0.0-12.0); Neutrophils # (auto) 7.5 10 ^3/uL (1.6-8.6); Neutrophils % (auto) 72.2 % (37.0-80.0); Platelet Count (auto) 340 10^3/uL (140-450); Red Cell Distribution Width 14.3 % (11.8-14.3); White Blood Cell 10.5 10^3/uL (4.4-10.8)
[2024-02-18 01:16] LABS: Chloride 99 mmol/L (98-107); Potassium 3.6 mmol/L (3.5-5.1); Sodium 135 mmol/L (136-145)
[2024-02-18 01:17] LABS: Anion Gap 8 (5-15); Carbon Dioxide 28 mmol/L (20-31)
[2024-02-18 01:18] LABS: Calcium 9.4 mg/dL (8.7-10.4)
[2024-02-18 01:22] LABS: Glucose 131 mg/dL (74-106)
[2024-02-18 01:23] LABS: BUN/Creatinine Ratio 21.1 (10.0-20.0); Blood Urea Nitrogen 27 mg/dL (9-23)
--- NOTE | 2024-02-18 04:46 | DVH ---
CHEST RADIOGRAPH Indication:On vent Technique: Single frontal view of the chest was obtained COMPARISON: XY CHEST XRAY 1 VIEW on DOS: 02/17/24, XY CHEST XRAY 1 VIEW on DOS: 02/16/24, XY CHEST PO RTABLE on DOS: 02/15/24 FINDINGS: Lines and Tubes: Endotracheal tube, enteric catheter right central venous catheter in satisfactory po sition. Lungs: Congestion. Pleura: No effusion. No pneumothorax. Cardiomediastinal contours: Cardiomegaly. Bones: Unremarkable IMPRESSION: Lines and tubes in satisfactory position. No significant interval change.
[2024-02-18 06:31] LABS: Base Excess 3.7 mmol/L (-2.0-3.0)
--- NOTE | 2024-02-18 10:22 | DVHPN2 ---
Progress Note - Dictate Date Seen: Feb 18, 2024 Medical Necessity Reason Pt with a Central, PICC or Fol: Yes The following are medically ne: Central Line, Roblero Catheter Reason for roblero catheter: Strict I&O Subjective Mr. Glass is a 78 years old gentleman with a history of obesity, the patient was taken to the [facility] on 02/11/2024 with a chief company of elevated blood pressure. I have seen and examined the patient, I have discussed with his nurse, the patient was remained intubated, He is respond to light touch stimuli, Versed 3 mg/hour, fentanyl 100 mcg/hour, FiO2: 55% UDS, 02/11/2024: Negative Plasma alcohol, 02/11/2024: 3.4 Urinalysis, 02/11/2024: Unremarkable ABG, 02/11/2024: Respiratory acidosis CBC, 02/11/2024: Unremarkable BMP 02/11/2024: Unremarkable HCO3, 02/11/2024: 29, 02/12/2024, 33 Liver function tests, 02/12/2024: Normal HbA1c, 02/11/2024: 7.8 TG/Chol/LDL/LDL/HDL, 02/11/2024: 190/171/109/42 TSH, 02/11/2024: 4.29 EEG, 02/12/2024: Moderately abnormal EEG Carotid Doppler, 02/11/2024: Normal left ventricular size and dimension. Normal left ventricular systolic function estimated ejection fraction 60%. There is a grade 1 diastolic dysfunction. Normal right ventricular size and dimension. Normal right ventricular systolic function. Normal biatrial size and dimension. The aortic valve is thickened and sclerotic there is [id number] aortic valve stenosis with a peak gradient of33 and mean gradient of 18 mm of mercury. The mitral valve is mildly thickened there is mild mitral valve regurgitation. There is mild tricuspid valve regurgitation. The pulmonary valve is grossly normal. No pericardial effusion. Carotid Doppler, 02/11/2024: 1. 50-69% stenosis at the level of the left proximal ICA. 2. No hemodynamically significant stenosis noted in the right carotid system. Chest x-ray, 02/11/2024: Lines and tubes in appropriate position. Cardiomegaly with small left pleural effusion and diffuse interstitial opacities which may reflect pulmonary edema CT head, 02/11/2024: 1. Well-defined hypodensity of approximate size 10 x 8 mm in the simon on the left side, concerning for acute infarct. 2. Chronic periventricular ischemic changes. 3. Cerebral and cerebellar atrophy, likely age-related. 4. Chronic and / or ancillary findings as described above. 5. Advised further evaluation with MRI brain without contrast. CT head, 02/15/2024: 1. No acute intracranial process. 2. Moderate acute pansinusitis. vital signs Vital Sign Date Time Temp Pulse Resp B/P (MAP) Pulse Ox O2 Delivery O2 Flow Rate FiO2 02/18/24 10:14 64 18 116/62 (80) 90 55 02/18/24 06:00 Mechanical Ventilator+ 02/18/24 05:00 98.4 98.4 Total Intake and Output 02/17/24 02/17/24 02/18/24 15:00 23:00 07:00 Intake Total 181.5 ml 223.0 ml 167.0 ml Output Total 900 ml 650 ml Balance 181.5 ml -677.0 ml -483.0 ml medications Current Medications Medications Dose Ordered Sig/Theodora Route Start Time Stop Time Status Last Admin Dose Admin Midazolam HCl 50 ml @ 1 mls/hr Q24H IV 02/11/24 09:15 02/18/24 08:12 6 MLS/HR Sodium Chloride 10 ml Q8HR IV 02/11/24 14:00 02/18/24 05:57 10 ML Enoxaparin Sodium 40 mg DAILY SC 02/11/24 10:00 02/18/24 09:27 40 MG Fentanyl Citrate 250 ml @ 2.5 mls/hr Q24H IV 02/11/24 10:15 02/16/24 15:03 10 MLS/HR Norepinephrine Bitartrate 250 ml @ 3.75 mls/hr Q24H IV 02/11/24 18:15 02/14/24 06:02 11.25 MLS/HR Atorvastatin Calcium 40 mg HS PO 02/12/24 22:00 02/17/24 22:34 40 MG Pantoprazole Sodium 40 mg DAILY IV 02/13/24 10:00 02/18/24 09:28 40 MG Cefepime/Dextrose 50 ml @ 12.5 mls/hr Q8HR IV 02/13/24 14:00 02/18/24 05:51 12.5 MLS/HR Lactulose 30 ml Q8HR PO 02/13/24 12:00 02/18/24 06:09 30 ML Enteral Nutritional Formula 1,000 ml 45ML/HR GT 02/16/24 12:45 02/16/24 14:54 1,000 ML Gentamicin Sulfate 1 drop Q4HR EACHEYE 02/16/24 18:00 02/18/24 09:26 1 DROP Aspirin 81 mg DAILY PO 02/17/24 10:00 02/18/24 09:28 81 MG Furosemide 40 mg BIDD IV 02/17/24 18:00 02/18/24 05:57 40 MG objective The patient is well-nourished and well-developed with no distress. The patient is intubated MENTAL STATUS: Subjective CRANIAL NERVES: Pupils are equal, round and slightly reactive, 1-2mm. There are corneal reflexes and doll's eyes phenomenon. No signs of facial weakness. There are gagging or coughing reflexes SENSATION: No responses to pain stimuli. MOTOR: Normal tone in the upper and lower extremity. Normal muscle bulk. No fasciculations. No spontaneous movement. REFLEXES: Deep tendon reflexes are symmetrical. No pathological reflexes. CEREBELLAR/COORDINATION: Deferred GAIT/STATION: deferred. laboratory and microbiology Laboratory Tests 02/18/24 00:44 Test 02/18/24 00:44 Range/Units Serum Glucose 131 H 74-106 mg/dL Problem List Altered mental status Hypoxic encephalopathy Metabolic encephalopathy Respiratory failure Hypertension emergency Respiratory acidosis Sepsis, ? Septic shock Pneumonia Cellulitis in the legs Stroke per the 1st CT, not confirmed by the 2nd CT head on 02/15/2024 Left ICA moderate stenosis Assessment/Plan Monitoring Supportive treatments ICU care Consider MRI brain scan later Stabilize vitals/pressor drip Respiratory support/vent management Blood culture IV antibiotics Aspirin 81 mg daily/300 mg suppository daily Lipitor 40 mg daily DVT prophylaxis Pulmonology evaluation Cardiology evaluation Social service on case More recommendation per clinical course This medical document was created using an electronic medical record system with [employer] system. Although this document has been carefully reviewed, there may still be some phonetic and typographical errors. These areas are purely typographical due to imperfections of the software programs, and do not reflect any compromise in the patient's medical care. Prognosis Guarded Dietary Evaluation Review Comments: 1) Recommend CCHO-60, Cardiac 2gNa LoFat LoCholesterol diet when medically feasible. 2) If GI accessible but PO feeding is not an option, consider glucerna 1.2 @45ml/hr. In 24 hrs, pt will be receiving 65g protein and 1296 kcal.Adj and increase infusion rate as tolerated. 3) If NPO > 7 days and GI is not accesible, consider TPN to support 75% of her energy and protein needs. Expected Outcomes/Goals: Gradual weight loss, improved glucose Plan discussed with: Other TRAV CRUZ MD Feb 18, 2024 10:22
[2024-02-18] MEDS: HYDROCORTISONE SOD SUCC 100 MG/2ML INJ VIAL IV ONE (12:05)
[2024-02-18] MEDS: ROCURONIUM 10MG/ML 10ML VIAL IV ONE ×2 (14:50→15:00)
[2024-02-18] MEDS: MAGNESIUM SULFATE 1GM/100ML 100 ML IV SCH (15:00)
--- NOTE | 2024-02-18 15:12 | DVH ---
CHEST RADIOGRAPH Indication:SPO2 DESATURATION Technique: Single frontal view of the chest was obtained Comparison: XY CHEST XRAY 1 VIEW on DOS: 02/18/24, XY CHEST XRAY 1 VIEW on DOS: 02/17/24, XY CHEST XR AY 1 VIEW on DOS: 02/16/24 FINDINGS: Lines and Tubes: Endotracheal tube in place 3.3 cm above the elmira. Central line in place from the r ight with the tip in the superior vena cava. Enteric tube not well seen if present recommend KUB. Lungs: Left lower lobe infiltrate and atelectasis. Pleura: No effusion. No pneumothorax. Cardiomediastinal contours: Unremarkable Bones: No acute osseous abnormality. IMPRESSION: 1. Endotracheal tube in place 3.3 cm above the elmira. 2. Right internal jugular catheter in place superior vena cava. 3. Enteric tube present not well seen consider KUB. 4. Left lower lobe infiltrate and atelectasis.
--- NOTE | 2024-02-18 15:18 | DVHPNRES ---
Progress Note Date Seen: Feb 18, 2024 Resident Creating Document: DAMON LOPEZ RESIDENT Medical Necessity Reason Pt with a Central, PICC or Fol: Yes The following are medically ne: Central Line, Roblero Catheter Reason for roblero catheter: Strict I&O Objective vital signs Vital Sign Date Time Temp Pulse Resp B/P (MAP) Pulse Ox O2 Delivery O2 Flow Rate FiO2 02/18/24 14:00 61 19 116/53 (74) 87 02/18/24 14:00 Mechanical Ventilator+ 85 85 02/18/24 12:00 98.2 98.2 Total Intake and Output 02/17/24 02/17/24 02/18/24 15:00 23:00 07:00 Intake Total 181.5 ml 223.0 ml 198.0 ml Output Total 900 ml 650 ml Balance 181.5 ml -677.0 ml -452.0 ml medications Current Medications Medications Dose Ordered Sig/Theodora Route Start Time Stop Time Status Last Admin Dose Admin Midazolam HCl 50 ml @ 1 mls/hr Q24H IV 02/11/24 09:15 02/18/24 08:12 6 MLS/HR Sodium Chloride 10 ml Q8HR IV 02/11/24 14:00 02/18/24 13:47 10 ML Enoxaparin Sodium 40 mg DAILY SC 02/11/24 10:00 02/18/24 09:27 40 MG Fentanyl Citrate 250 ml @ 2.5 mls/hr Q24H IV 02/11/24 10:15 02/18/24 13:48 12.5 MLS/HR Norepinephrine Bitartrate 250 ml @ 3.75 mls/hr Q24H IV 02/11/24 18:15 02/14/24 06:02 11.25 MLS/HR Atorvastatin Calcium 40 mg HS PO 02/12/24 22:00 02/17/24 22:34 40 MG Pantoprazole Sodium 40 mg DAILY IV 02/13/24 10:00 02/18/24 09:28 40 MG Cefepime/Dextrose 50 ml @ 12.5 mls/hr Q8HR IV 02/13/24 14:00 02/18/24 13:47 12.5 MLS/HR Lactulose 30 ml Q8HR PO 02/13/24 12:00 02/18/24 13:47 30 ML Enteral Nutritional Formula 1,000 ml 45ML/HR GT 02/16/24 12:45 02/16/24 14:54 1,000 ML Gentamicin Sulfate 1 drop Q4HR EACHEYE 02/16/24 18:00 02/18/24 13:46 1 DROP Aspirin 81 mg DAILY PO 02/17/24 10:00 02/18/24 09:28 81 MG Furosemide 40 mg BIDD IV 02/17/24 18:00 02/18/24 05:57 40 MG Hydrocortisone Sodium Succinate 100 mg Q12HR IV 02/18/24 22:00 Magnesium Sulfate/ Dextrose 100 ml @ 100 mls/hr Q1HR IV 02/18/24 15:00 02/18/24 16:59 Examination I was paged by nurse, PT was saturated on the 85%, call Dr Estrella PEEP was increased to 8 and Fio2 to 100 didnt improve, later PEEP go 10 which not improve xray stat didnt show pneumothorax or mucus plug ETT was changed by Dr Estrella using Boogie : EET 8 Old tube showed mucus in the tip Stat branchoscopy showed mucus in the left lower lobe specimien were sent order new x ray adding mucomyst increase sedation laboratory and microbiology Laboratory Tests 02/18/24 00:44 Test 02/18/24 00:44 Range/Units Serum Glucose 131 H 74-106 mg/dL Microbiology Date/Time Source Procedure Growth Status 02/15/24 10:20 Bronchial Washings Gram Stain - Final Complete 02/15/24 10:20 Bronchial Washings Respiratory Culture - Final Complete 02/14/24 12:04 Urine - Roblero Port Urine Culture - Final Complete 02/12/24 13:30 Blood Blood Culture - Final NO GROWTH AFTER 5 DAYS OF INCUBATION. Complete 02/11/24 13:06 Nose MRSA Screen - Final Complete Problem List/Assessment/Plan Problem List/Assessment/Plan I was paged by nurse, PT was saturated on the 85%, call Dr Estrella PEEP was increased to 8 and Fio2 to 100 didnt improve, later PEEP go 10 which not improve xray stat didnt show pneumothorax or mucus plug ETT was changed by Dr Estrella using Boogie : EET 8 Old tube showed mucus in the tip Stat branchoscopy showed mucus in the left lower lobe specimien were sent order new x ray adding mucomyst increase sedation Plan discussed with: Other My Orders My Orders Orders - DAMON LOPEZ RESIDENT Procedure Category Date Status Time Bilat Lower Dvt US 02/18/24 Logged 14:42 Cytology AMBER 02/18/24 Transmitted 14:43 Respiratory Culture AMBER 02/18/24 Logged W/ Gs 14:43 Gram Stain AMBER 02/18/24 Logged 14:43 Acetylcysteine PHA 02/18/24 Logged Inhalation 20% 22:00 Dietary Evaluation Review Comments: 1) Recommend CCHO-60, Cardiac 2gNa LoFat LoCholesterol diet when medically feasible. 2) If GI accessible but PO feeding is not an option, consider glucerna 1.2 @45ml/hr. In 24 hrs, pt will be receiving 65g protein and 1296 kcal.Adj and increase infusion rate as tolerated. 3) If NPO > 7 days and GI is not accesible, consider TPN to support 75% of her energy and protein needs. Expected Outcomes/Goals: Gradual weight loss, improved glucose Date of Service: Feb 18, 2024 Billing Provider: ESTELLE ESTRELLA MD Common Visit Codes: NOT BILLABLE DAMON LOPEZ RESIDENT Feb 18, 2024 15:18 ESTELLE ESTRELLA MD Feb 19, 2024 15:28
--- NOTE | 2024-02-18 15:24 | DVHPNRES ---
Progress Note Date Seen: Feb 18, 2024 Resident Creating Document: SAMANTHA RAMIREZ RESIDENT Medical Necessity Reason Pt with a Central, PICC or Fol: Yes The following are medically ne: Central Line, Roblero Catheter Reason for roblero catheter: Strict I&O Subjective Review of Systems Patient is 78-year-old male with unknown medical history of brought to the hospital via EMS for hypertension and found to be outside at convenience store . During further evaluation emergency department, patient was diagnosed with acute stroke due to ischemia and pneumonia. Later patient was intubated on put on ventilator for worsening respiratory distress, protect of airway with diagnosis of acute stroke, pneumonia and CHF exacerbation. Past medical history: Unknown Past surgical history: Unknown Patient seen and examined in ICU department. Patient is currently on ventilator. Patient oxygen requirement increased. Fio2 to 55 %. Objective vital signs Vital Sign Date Time Temp Pulse Resp B/P (MAP) Pulse Ox O2 Delivery O2 Flow Rate FiO2 02/18/24 14:00 61 19 116/53 (74) 87 02/18/24 14:00 Mechanical Ventilator+ 85 85 02/18/24 12:00 98.2 98.2 Total Intake and Output 02/17/24 02/17/24 02/18/24 15:00 23:00 07:00 Intake Total 181.5 ml 223.0 ml 198.0 ml Output Total 900 ml 650 ml Balance 181.5 ml -677.0 ml -452.0 ml medications Current Medications Medications Dose Ordered Sig/Theodora Route Start Time Stop Time Status Last Admin Dose Admin Midazolam HCl 50 ml @ 1 mls/hr Q24H IV 02/11/24 09:15 02/18/24 08:12 6 MLS/HR Sodium Chloride 10 ml Q8HR IV 02/11/24 14:00 02/18/24 13:47 10 ML Enoxaparin Sodium 40 mg DAILY SC 02/11/24 10:00 02/18/24 09:27 40 MG Fentanyl Citrate 250 ml @ 2.5 mls/hr Q24H IV 02/11/24 10:15 02/18/24 13:48 12.5 MLS/HR Norepinephrine Bitartrate 250 ml @ 3.75 mls/hr Q24H IV 02/11/24 18:15 02/14/24 06:02 11.25 MLS/HR Atorvastatin Calcium 40 mg HS PO 02/12/24 22:00 02/17/24 22:34 40 MG Pantoprazole Sodium 40 mg DAILY IV 02/13/24 10:00 02/18/24 09:28 40 MG Cefepime/Dextrose 50 ml @ 12.5 mls/hr Q8HR IV 02/13/24 14:00 02/18/24 13:47 12.5 MLS/HR Lactulose 30 ml Q8HR PO 02/13/24 12:00 02/18/24 13:47 30 ML Enteral Nutritional Formula 1,000 ml 45ML/HR GT 02/16/24 12:45 02/16/24 14:54 1,000 ML Gentamicin Sulfate 1 drop Q4HR EACHEYE 02/16/24 18:00 02/18/24 13:46 1 DROP Aspirin 81 mg DAILY PO 02/17/24 10:00 02/18/24 09:28 81 MG Furosemide 40 mg BIDD IV 02/17/24 18:00 02/18/24 05:57 40 MG Hydrocortisone Sodium Succinate 100 mg Q12HR IV 02/18/24 22:00 Magnesium Sulfate/ Dextrose 100 ml @ 100 mls/hr Q1HR IV 02/18/24 15:00 02/18/24 16:59 Acetylcysteine 200 mg Q8HR NEB 02/18/24 22:00 UNV Examination General Appearance: RASS -3, sedated and on ventilation. Head Exam: Normal inspection Neck Exam: Normal inspection. Non-tender. Normal alignment Pulmonary/Respiratory: Chest non-tender. bilateral crackles over bilateral lung lobes. Cardiovascular/Chest: Regular rate and rhythm. No murmurs. No JVD. Peripheral Pulses: 2+ Radial (R). 2+ Radial (L). 2+ Pedal (R). 2+ Pedal (L) Abdominal Exam: Normal bowel sounds. Soft. Nontender. No hepatospenomegaly. No masses, distended abdomin, no fluid thrill. Ankle Exam: Negative ankle edema Lower extremities: 2+ lower extremity edema Neuro/Mental Status: Appropriate pupillary reflex, other cranial nerve can not be assessed. laboratory and microbiology Laboratory Tests 02/18/24 00:44 Test 02/18/24 00:44 Range/Units Serum Glucose 131 H 74-106 mg/dL Microbiology Date/Time Source Procedure Growth Status 02/15/24 10:20 Bronchial Washings Gram Stain - Final Complete 02/15/24 10:20 Bronchial Washings Respiratory Culture - Final Complete 02/14/24 12:04 Urine - Roblero Port Urine Culture - Final Complete 02/12/24 13:30 Blood Blood Culture - Final NO GROWTH AFTER 5 DAYS OF INCUBATION. Complete 02/11/24 13:06 Nose MRSA Screen - Final Complete Problem List/Assessment/Plan Problem List/Assessment/Plan Acute stroke due to ischemia Acute hypercapnic hypoxic respiratory failure due to pneumonia and CHF Left lower lobe pneumonia Gram-positive/Gram-negative Septic shock due to pneumonia Acute diastolic CHF ? ARDS Emphysema Pulmonary edema Hypertensive emergency Carotid artery stenosis: 50-69% stenosis left paroxysmal ICA DVT and PE ruled out Fatty liver Infrarenal aortic aneurysm:5.8 x 6.0 cm. Prostatomegaly Constipation Obesity Plan -on ventilator: AC/VC: Respiratory rate 18, tidal volume 550, FiO2 60 %, peep 5. -initiate antibiotic with cefepime -on vasopressor Levophed: Target map greater than 65. Of Levophed. -continue IV furosemide 40 mg b.i.d.. Hydrocortisone 100 mg IV b.i.d. -echocardiogram: Left ventricular ejection fraction 60%, grade 1 diastolic dysfunction -neurology consultation: Aspirin, Lipitor. When stable: MRI of brain an, EEG. -cardiology consultation: Continue current management. -DVT prophylaxis: Lovenox -PUD prophylaxis: Protonix Critical care time spent greater than 81 minutes. -Event: Patient was desaturating at 85%. FiO2 requirement increased to 100%, peep increased to 10, oxygen saturation was not improved. X-ray was done which did not show pneumothorax on mucus plug, ET tube was changed. Given worsening condition stat bronchoscopy was done which showed mucus in left lower lobe. Specimen has been sent to laboratory for further evaluation and Mucomyst was added for thick secretion. Plan to do repeat bronchoscopy again given worsening lung function. ETT was changed by Dr Estrella using Boogie : EET [address] Estrella Plan discussed with: Other (RN) My Orders My Orders Orders - SAMANTHA RAMIREZ RESIDENT Procedure Category Date Status Time Chest Xray 1 View XY 02/18/24 Resulted 04:00 Communication Order ORDERS 02/17/24 Transmitted 18:32 Abg W/ Co-Ox RT 02/18/24 Logged 06:00 Hydrocortisone PHA 02/18/24 In Process Succinate Inj 22:00 Dietary Evaluation Review Comments: 1) Recommend CCHO-60, Cardiac 2gNa LoFat LoCholesterol diet when medically feasible. 2) If GI accessible but PO feeding is not an option, consider glucerna 1.2 @45ml/hr. In 24 hrs, pt will be receiving 65g protein and 1296 kcal.Adj and increase infusion rate as tolerated. 3) If NPO > 7 days and GI is not accesible, consider TPN to support 75% of her energy and protein needs. Expected Outcomes/Goals: Gradual weight loss, improved glucose Date of Service: Feb 18, 2024 Billing Provider: ESTELLE ESTRELLA MD Common Visit Codes: [id number] CARE 30-74 MIN SAMANTHA RAMIREZ RESIDENT Feb 18, 2024 15:24 ESTELLE ESTRELLA MD Feb 19, 2024 15:29
--- NOTE | 2024-02-18 15:36 | DVHNC2 ---
Other Procedure Procedure Bronchoscopy Operative Note Procedure Performed: 1. Flexible Bronchoscopy 2. Left lower love bronchial washings Anesthesia/Medication: Patient intubated and sedated Preoperative Diagnosis: Pneumonia Postoperative Diagnosis: Same Estimated Blood Loss: Less than 10 ml Consent: Emergent procedure had to be done due to mucus plug and hypoxia Indications: Findings: No significant endobronchial lesions or abnormalities were seen. Description of the Procedure: Bronchoscope was introduced through the ET tube the bronchoscope was then inserted into the subglottic area, followed by the trachea, bilateral mainstem bronchi, and to the level of the subsegmental bronchi. There was no evidence of intrinsic or extrinsic compression. I could see a lot of mucus on the left side of the lung and I did bronchial washings on left side. At this point, there was no evidence of any ongoing bleeding. The bronchoscope was then withdrawn and the patient was allowed to recover. Date of Service: Feb 18, 2024 Billing Provider: ESTELLE MCKNIGHT MD Common Visit Codes: PROCEDURE ONLY Procedure Codes: [id number] ESTELLE MCKNIGHT MD Feb 18, 2024 15:36
--- NOTE | 2024-02-18 15:47 | DVH ---
Procedure: XY CHEST PORTABLE 02/18/2024 03:22 PM Indication: ET TUBE PLACEMENT VERIFICATION. Comparison: XY CHEST PORTABLE on DOS: 02/18/24, XY CHEST XRAY 1 VIEW on DOS: 02/18/24, XY CHEST XRAY 1 VIEW on DOS: 02/17/24 TECHNIQUE: XY CHEST PORTABLE FINDINGS: Medical devices: ETT ends 4.5 cm above the level of elm[place]. The right IJ approach central line ends at the cavoatrial junction. The enteric tube extends to the upper abdomen with the tip out of the fie ld of view. Cardiomediastinal: The heart is normal in size. Pulmonary vasculature is within normal limits. Athero sclerotic calcification of the aortic arch noted. Lungs: Small bilateral pleural effusions and bilateral lower lung zones noted. No pneumothorax. Bones/soft tissues: No acute abnormality is noted. IMPRESSION: 1. The ETT is in satisfactory position with the tip 4.5 cm above the level of elmira.
--- NOTE | 2024-02-18 16:31 | DVH ---
EXAM: US Duplex Bilateral Lower Extremities Veins CLINICAL INDICATION: rue out dvt TECHNIQUE: Real-time duplex ultrasound scan of the bilateral lower extremity veins integrating B-mod e two-dimensional vascular structure, Doppler spectral analysis, color flow Doppler imaging and compr ession. COMPARISON: US RT LOWER DVT on DOS: 02/11/24 FINDINGS: RIGHT DEEP VEINS: Unremarkable. No DVT in the right common femoral, femoral, proximal deep femoral or popliteal veins. The veins demonstrate normal color flow, are normally compressible, with normal phasic flow and/or augmentation response. RIGHT SUPERFICIAL VEINS: Unremarkable. No thrombus in the visualized right great saphenous vein. LEFT DEEP VEINS: Unremarkable. No DVT in the left common femoral, femoral, proximal deep femoral or popliteal veins. The veins demonstrate normal color flow, are normally compressible, with normal ph asic flow and/or augmentation response. LEFT SUPERFICIAL VEINS: Unremarkable. No thrombus in the visualized left great saphenous vein. SOFT TISSUES: No acute findings. No popliteal cyst. OTHER FINDINGS: . . . IMPRESSION: No DVT. HS:Y
[2024-02-18 17:01] LABS: Base Excess 3.5 mmol/L (-2.0-3.0)
[2024-02-18] MEDS ORDERED: VANCOMYCIN PER PHARMACY 0 MG IV SCH (17:45)
[2024-02-18] MEDS: ALBUTEROL SULF 2.5 MG/0.5ML(0.5%) NEB SOLN NEB SCH (18:28)
[2024-02-18] MEDS: ACETYLCYSTEINE 20%(200MG/ML) SOL 4ML NEB SCH (18:28)
[2024-02-18] MEDS: VANCOMYCIN 1GM/250ML KIT 200 ML IV SCH (19:14)
[2024-02-18 19:56] LABS: Base Excess 0.2 mmol/L (-2.0-3.0)
[2024-02-18] MEDS: HYDROCORTISONE SOD SUCC 100 MG/2ML INJ VIAL IV SCH (21:47)
[2024-02-19] VITALS (114 sets, daily range): BP systolic 71–178; BP diastolic 36–86; PULSE 49–96; RESP 15–27; TEMP 98.2–98.7; O2SAT 91–98
[2024-02-19] MEDS: VANCOMYCIN 750mg/150ml 150 ML IV SCH (02:58)
[2024-02-19 03:29] LABS: Basophils # (auto) 0.1 10 ^3/uL (0-0.2); Basophils % (auto) 0.8 % (0.0-2.0); Eosinophils # (auto) 0 10 ^3/uL (0-0.8); Eosinophils % (auto) 0.1 % (0.0-7.0); Hematocrit 44.5 % (41.0-53.0); Hemoglobin 14.5 g/dL (13.5-17.5); Lymphocytes # (auto) 0.7 10 ^3/uL (0.4-5.4); Lymphocytes % (auto) 5.4 % (10.0-50.0); Mean Corpuscular Hemoglobin 29.1 pg (28.0-32.0); Mean Corpuscular Hgb Conc. 32.6 g/dL (32.0-36.0); Mean Corpuscular Volume 89.4 fL (80.0-100.0); Monocytes # (auto) 0.6 10 ^3/uL (0-1.3); Monocytes % (auto) 4.2 % (0.0-12.0); Neutrophils # (auto) 12.1 10 ^3/uL (1.6-8.6); Neutrophils % (auto) 89.5 % (37.0-80.0); Platelet Count (auto) 340 10^3/uL (140-450); Red Blood Cells 4.98 10^6/uL (4.5-5.90); Red Cell Distribution Width 14.7 % (11.8-14.3); White Blood Cell 13.5 10^3/uL (4.4-10.8)
[2024-02-19 03:41] LABS: Chloride 98 mmol/L (98-107); Potassium 4.6 mmol/L (3.5-5.1); Sodium 135 mmol/L (136-145)
[2024-02-19 03:42] LABS: Anion Gap 14 (5-15); Calcium 9.6 mg/dL (8.7-10.4); Carbon Dioxide 23 mmol/L (20-31)
[2024-02-19 03:47] LABS: BUN/Creatinine Ratio 19.9 (10.0-20.0); Glucose 179 mg/dL (74-106)
[2024-02-19 04:20] LABS: Blood Urea Nitrogen 37 mg/dL (9-23)
--- NOTE | 2024-02-19 05:46 | DVH ---
CHEST RADIOGRAPH Indication:on vent Technique: Single frontal view of the chest was obtained COMPARISON: XY CHEST PORTABLE on DOS: 02/18/24, XY CHEST PORTABLE on DOS: 02/18/24, XY CHEST XRAY 1 V IEW on DOS: 02/18/24 FINDINGS: Lines and Tubes: Endotracheal tube, enteric catheter and right central venous catheter in satisfactor y position. Lungs: Congestion Pleura: No effusion. No pneumothorax. Cardiomediastinal contours: Unremarkable Bones: Unremarkable IMPRESSION: Lines and tubes in satisfactory position. No significant interval change.
[2024-02-19 05:58] LABS: Base Excess -2.5 mmol/L (-2.0-3.0)
[2024-02-19] MEDS ORDERED: fentaNYL CITRATE 100 MCG/2 ML VL ONE (08:35)
[2024-02-19] MEDS ORDERED: MIDAZOLAM HCL 5 MG/ML-1ML VIAL ONE (08:35)
[2024-02-19] MEDS ORDERED: LIDOCAINE 2% JELLY 11ml (GLYDO) ONE (10:29)
--- NOTE | 2024-02-19 11:02 | DVHPN2 ---
Progress Note - Dictate Date Seen: Feb 19, 2024 Medical Necessity Reason Pt with a Central, PICC or Fol: Yes The following are medically ne: Central Line, Roblero Catheter Reason for roblero catheter: Strict I&O Subjective Mr. Glass is a 78 years old gentleman with a history of obesity, the patient was taken to the [facility] on 02/11/2024 with a chief company of elevated blood pressure. I have seen and examined the patient, I have discussed with his nurse, the patient was remained intubated, daily, and nonresponsive to stroke painful stimuli Blood pressure is not stable, we are starting pressor drip Versed 15 mg/hour, fentanyl 350 mcg/hour, FiO2: 65% UDS, 02/11/2024: Negative Plasma alcohol, 02/11/2024: 3.4 Urinalysis, 02/11/2024: Unremarkable ABG, 02/11/2024: Respiratory acidosis CBC, 02/11/2024: Unremarkable BMP 02/11/2024: Unremarkable HCO3, 02/11/2024: 29, 02/12/2024, 33 Liver function tests, 02/12/2024: Normal HbA1c, 02/11/2024: 7.8 TG/Chol/LDL/LDL/HDL, 02/11/2024: 190/171/109/42 TSH, 02/11/2024: 4.29 EEG, 02/12/2024: Moderately abnormal EEG Carotid Doppler, 02/11/2024: Normal left ventricular size and dimension. Normal left ventricular systolic function estimated ejection fraction 60%. There is a grade 1 diastolic dysfunction. Normal right ventricular size and dimension. Normal right ventricular systolic function. Normal biatrial size and dimension. The aortic valve is thickened and sclerotic there is [id number] aortic valve stenosis with a peak gradient of33 and mean gradient of 18 mm of mercury. The mitral valve is mildly thickened there is mild mitral valve regurgitation. There is mild tricuspid valve regurgitation. The pulmonary valve is grossly normal. No pericardial effusion. Carotid Doppler, 02/11/2024: 1. 50-69% stenosis at the level of the left proximal ICA. 2. No hemodynamically significant stenosis noted in the right carotid system. Chest x-ray, 02/11/2024: Lines and tubes in appropriate position. Cardiomegaly with small left pleural effusion and diffuse interstitial opacities which may reflect pulmonary edema CT head, 02/11/2024: 1. Well-defined hypodensity of approximate size 10 x 8 mm in the simon on the left side, concerning for acute infarct. 2. Chronic periventricular ischemic changes. 3. Cerebral and cerebellar atrophy, likely age-related. 4. Chronic and / or ancillary findings as described above. 5. Advised further evaluation with MRI brain without contrast. CT head, 02/15/2024: 1. No acute intracranial process. 2. Moderate acute pansinusitis. vital signs Vital Sign Date Time Temp Pulse Resp B/P (MAP) Pulse Ox O2 Delivery O2 Flow Rate FiO2 02/19/24 09:54 88/38 02/19/24 09:31 61 22 96 65 02/19/24 08:20 Mechanical Ventilator+ 02/19/24 04:00 98.5 98.5 Total Intake and Output 02/18/24 02/18/24 02/19/24 15:00 23:00 07:00 Intake Total 172.7 ml 1140.0 ml 533 ml Output Total 750 ml 225 ml Balance 172.7 ml 390.0 ml 308 ml medications Current Medications Medications Dose Ordered Sig/Theodora Route Start Time Stop Time Status Last Admin Dose Admin Midazolam HCl 50 ml @ 1 mls/hr Q24H IV 02/11/24 09:15 02/19/24 09:02 15 MLS/HR Sodium Chloride 10 ml Q8HR IV 02/11/24 14:00 02/19/24 06:18 10 ML Enoxaparin Sodium 40 mg DAILY SC 02/11/24 10:00 02/19/24 09:41 40 MG Fentanyl Citrate 250 ml @ 2.5 mls/hr Q24H IV 02/11/24 10:15 02/19/24 10:32 35 MLS/HR Norepinephrine Bitartrate 250 ml @ 3.75 mls/hr Q24H IV 02/11/24 18:15 02/19/24 09:54 3.75 MLS/HR Atorvastatin Calcium 40 mg HS PO 02/12/24 22:00 02/18/24 21:50 40 MG Pantoprazole Sodium 40 mg DAILY IV 02/13/24 10:00 02/19/24 09:41 40 MG Lactulose 30 ml Q8HR PO 02/13/24 12:00 02/18/24 13:47 30 ML Enteral Nutritional Formula 1,000 ml 45ML/HR GT 02/16/24 12:45 02/16/24 14:54 1,000 ML Gentamicin Sulfate 1 drop Q4HR EACHEYE 02/16/24 18:00 02/19/24 09:55 1 DROP Aspirin 81 mg DAILY PO 02/17/24 10:00 02/19/24 09:40 81 MG Hydrocortisone Sodium Succinate 100 mg Q12HR IV 02/18/24 22:00 02/19/24 09:41 100 MG Acetylcysteine 200 mg Q8HR NEB 02/18/24 22:00 02/19/24 05:37 200 MG Albuterol 2.5 mg Q8HR NEB 02/18/24 22:00 02/19/24 05:37 2.5 MG Vancomycin HCl 0 ml @ 0 mls/hr UD IV 02/18/24 17:45 Vancomycin HCl 150 ml @ 150 mls/hr Q8H IV 02/19/24 03:00 02/19/24 10:34 150 MLS/HR Cefepime/Dextrose 50 ml @ 12.5 mls/hr Q12H IV 02/19/24 18:00 objective The patient is well-nourished and well-developed with no distress. The patient is intubated MENTAL STATUS: Subjective CRANIAL NERVES: Pupils are equal, round and slightly reactive, 1-2mm. There are corneal reflexes and doll's eyes phenomenon. No signs of facial weakness. There are gagging or coughing reflexes SENSATION: No responses to pain stimuli. MOTOR: Normal tone in the upper and lower extremity. Normal muscle bulk. No fasciculations. No spontaneous movement. REFLEXES: Deep tendon reflexes are symmetrical. No pathological reflexes. CEREBELLAR/COORDINATION: Deferred GAIT/STATION: deferred. laboratory and microbiology Laboratory Tests 02/19/24 03:10 Test 02/19/24 03:10 Range/Units Serum Glucose 179 H 74-106 mg/dL Problem List Altered mental status Hypoxic encephalopathy Metabolic encephalopathy Respiratory failure Hypertension emergency Respiratory acidosis Sepsis, ? Septic shock Pneumonia Cellulitis in the legs Stroke per the 1st CT, not confirmed by the 2nd CT head on 02/15/2024 Left ICA moderate stenosis Assessment/Plan Monitoring Supportive treatments ICU care Consider MRI brain scan later Stabilize vitals/pressor drip Respiratory support/vent management Blood culture IV antibiotics Aspirin 81 mg daily/300 mg suppository daily Lipitor 40 mg daily DVT prophylaxis Pulmonology evaluation Cardiology evaluation Social service on case More recommendation per clinical course This medical document was created using an electronic medical record system with [employer] dictation system. Although this document has been carefully reviewed, there may still be some phonetic and typographical errors. These areas are purely typographical due to imperfections of the software programs, and do not reflect any compromise in the patient's medical care. Prognosis guarded Dietary Evaluation Review Comments: 1) Recommend CCHO-60, Cardiac 2gNa LoFat LoCholesterol diet when medically feasible. 2) If GI accessible but PO feeding is not an option, consider glucerna 1.2 @45ml/hr. In 24 hrs, pt will be receiving 65g protein and 1296 kcal.Adj and increase infusion rate as tolerated. 3) If NPO > 7 days and GI is not accesible, consider TPN to support 75% of her energy and protein needs. Expected Outcomes/Goals: Gradual weight loss, improved glucose Plan discussed with: Other TRAV CRUZ MD Feb 19, 2024 11:02
--- NOTE | 2024-02-19 12:11 | DVHPNRES ---
Progress Note Date Seen: Feb 19, 2024 Resident Creating Document: SAMANTHA RAMIREZ RESIDENT Medical Necessity Reason Pt with a Central, PICC or Fol: Yes The following are medically ne: Central Line, Roblero Catheter Reason for roblero catheter: Strict I&O Subjective Review of Systems Patient is 78-year-old male with unknown medical history of brought to the hospital via EMS for hypertension and found to be outside at [employer] . During further evaluation emergency department, patient was diagnosed with acute stroke due to ischemia and pneumonia. Later patient was intubated on put on ventilator for worsening respiratory distress, protect of airway with diagnosis of acute stroke, pneumonia and CHF exacerbation. Past medical history: Unknown Past surgical history: Unknown Patient seen and examined in ICU department. Patient is currently on ventilator. NO other complains. Objective vital signs Vital Sign Date Time Temp Pulse Resp B/P (MAP) Pulse Ox O2 Delivery O2 Flow Rate FiO2 02/19/24 10:00 60 02/19/24 10:00 60 02/19/24 10:00 22 95 Mechanical Ventilator+ 02/19/24 09:54 88/38 02/19/24 04:00 98.5 98.5 Total Intake and Output 02/18/24 02/18/24 02/19/24 15:00 23:00 07:00 Intake Total 172.7 ml 1140.0 ml 533 ml Output Total 750 ml 225 ml Balance 172.7 ml 390.0 ml 308 ml medications Current Medications Medications Dose Ordered Sig/Theodora Route Start Time Stop Time Status Last Admin Dose Admin Midazolam HCl 50 ml @ 1 mls/hr Q24H IV 02/11/24 09:15 02/19/24 09:02 15 MLS/HR Sodium Chloride 10 ml Q8HR IV 02/11/24 14:00 02/19/24 06:18 10 ML Enoxaparin Sodium 40 mg DAILY SC 02/11/24 10:00 02/19/24 09:41 40 MG Fentanyl Citrate 250 ml @ 2.5 mls/hr Q24H IV 02/11/24 10:15 02/19/24 10:32 35 MLS/HR Norepinephrine Bitartrate 250 ml @ 3.75 mls/hr Q24H IV 02/11/24 18:15 02/19/24 09:54 3.75 MLS/HR Atorvastatin Calcium 40 mg HS PO 02/12/24 22:00 02/18/24 21:50 40 MG Pantoprazole Sodium 40 mg DAILY IV 02/13/24 10:00 02/19/24 09:41 40 MG Lactulose 30 ml Q8HR PO 02/13/24 12:00 02/18/24 13:47 30 ML Enteral Nutritional Formula 1,000 ml 45ML/HR GT 02/16/24 12:45 02/16/24 14:54 1,000 ML Gentamicin Sulfate 1 drop Q4HR EACHEYE 02/16/24 18:00 02/19/24 09:55 1 DROP Aspirin 81 mg DAILY PO 02/17/24 10:00 02/19/24 09:40 81 MG Hydrocortisone Sodium Succinate 100 mg Q12HR IV 02/18/24 22:00 02/19/24 09:41 100 MG Acetylcysteine 200 mg Q8HR NEB 02/18/24 22:00 02/19/24 05:37 200 MG Albuterol 2.5 mg Q8HR NEB 02/18/24 22:00 02/19/24 05:37 2.5 MG Vancomycin HCl 0 ml @ 0 mls/hr UD IV 02/18/24 17:45 Vancomycin HCl 150 ml @ 150 mls/hr Q8H IV 02/19/24 03:00 02/19/24 10:34 150 MLS/HR Cefepime/Dextrose 50 ml @ 12.5 mls/hr Q12H IV 02/19/24 18:00 Examination General Appearance: RASS -3, sedated and on ventilation. Head Exam: Normal inspection Neck Exam: Normal inspection. Non-tender. Normal alignment Pulmonary/Respiratory: Chest non-tender. bilateral crackles over bilateral lung lobes. Cardiovascular/Chest: Regular rate and rhythm. No murmurs. No JVD. Peripheral Pulses: 2+ Radial (R). 2+ Radial (L). 2+ Pedal (R). 2+ Pedal (L) Abdominal Exam: Normal bowel sounds. Soft. Nontender. No hepatospenomegaly. No masses, distended abdomin, no fluid thrill. Ankle Exam: Negative ankle edema Lower extremities: 2+ lower extremity edema Neuro/Mental Status: Appropriate pupillary reflex, other cranial nerve can not be assessed. laboratory and microbiology Laboratory Tests 02/19/24 03:10 Test 02/19/24 03:10 Range/Units Serum Glucose 179 H 74-106 mg/dL Microbiology Date/Time Source Procedure Growth Status 02/18/24 16:00 Bronchial Washings Gram Stain - Final Resulted 02/18/24 16:00 Bronchial Washings Respiratory Culture - Preliminary Resulted 02/14/24 12:04 Urine - Roblero Port Urine Culture - Final Complete 02/12/24 13:30 Blood Blood Culture - Final NO GROWTH AFTER 5 DAYS OF INCUBATION. Complete 02/11/24 13:06 Nose MRSA Screen - Final Complete Problem List/Assessment/Plan Problem List/Assessment/Plan Acute stroke due to ischemia Acute hypercapnic hypoxic respiratory failure due to pneumonia and CHF Left lower lobe pneumonia Gram-positive/Gram-negative Septic shock due to pneumonia Acute diastolic CHF ? ARDS Emphysema Pulmonary edema Hypertensive emergency Carotid artery stenosis: 50-69% stenosis left paroxysmal ICA DVT and PE ruled out Fatty liver Infrarenal aortic aneurysm:5.8 x 6.0 cm. Prostatomegaly Constipation Obesity Plan -on ventilator: AC/VC: Respiratory rate 22, tidal volume 550, FiO2 60 %, peep 5. -initiate antibiotic with cefepime and vancomycin -Off vasopressor Levophed: Target map greater than 65. Of Levophed. -Discontinue IV furosemide 40 mg b.i.d.. Hydrocortisone 100 mg IV b.i.d. -echocardiogram: Left ventricular ejection fraction 60%, grade 1 diastolic dysfunction -neurology consultation: Aspirin, Lipitor. When stable: MRI of brain an, EEG. -cardiology consultation: Continue current management. -DVT prophylaxis: Lovenox -PUD prophylaxis: Protonix Critical care time spent greater than 79 minutes. Goal of care , full code. NO family to contact. -Event: Underwent broncoscopy and specimen sent to lab for culture/gram stain and cytology. Plan to do cpap trial today. Plan discussed with Dr Estrella Plan discussed with: Other (RN) My Orders My Orders Orders - SAMANTHA RAMIREZ Procedure Category Date Status Time Ventilator Orders RT 02/18/24 Transmitted 17:30 Abg W/ Co-Ox RT 02/18/24 Logged 19:30 Vancomycin Per PHA 02/18/24 In Process Pharmacy 17:45 Chest Xray 1 View XY 02/19/24 Resulted 04:00 Vancomycin PHA 02/19/24 In Process 750mg/150ml 03:00 Vancomycin Per TELLY 02/19/24 In Process Pharmacy Protoc 19:00 Vancomycin,Trough LAB 02/19/24 Logged 18:00 Abg W/ Co-Ox RT 02/19/24 Transmitted 05:56 Cefepime 2gm/50ml PHA 02/19/24 In Process 18:00 Hiv 1&2 Antibody LAB 02/19/24 In Process 11:00 Respiratory Culture AMBER 02/19/24 Transmitted W/ Gs 12:06 Cytology AMBER 02/19/24 Transmitted 12:06 Dietary Evaluation Review Comments: 1) Recommend CCHO-60, Cardiac 2gNa LoFat LoCholesterol diet when medically feasible. 2) If GI accessible but PO feeding is not an option, consider glucerna 1.2 @45ml/hr. In 24 hrs, pt will be receiving 65g protein and 1296 kcal.Adj and increase infusion rate as tolerated. 3) If NPO > 7 days and GI is not accesible, consider TPN to support 75% of her energy and protein needs. Expected Outcomes/Goals: Gradual weight loss, improved glucose Date of Service: Feb 19, 2024 Billing Provider: ESTELLE ESTRELLA MD Common Visit Codes: [id number] CARE 30-74 MIN SAMANTHA RAMIREZ RESIDENT Feb 19, 2024 12:11 ESTELLE ESTRELLA MD Feb 19, 2024 23:00
[2024-02-19 12:54] LABS: Base Excess -2.1 mmol/L (-2.0-3.0)
[2024-02-19 14:51] LABS: Base Excess -1.5 mmol/L (-2.0-3.0)
--- NOTE | 2024-02-19 15:20 | DVHNC2 ---
Other Procedure Procedure Bronchoscopy Operative Note Procedure Performed: 1. Flexible Bronchoscopy 2. Left lower love bronchial washings Anesthesia/Medication: Patient intubated and sedated Preoperative Diagnosis: Pneumonia Postoperative Diagnosis: Same Estimated Blood Loss: Less than 10 ml Consent: Emergent procedure had to be done due to mucus plug and hypoxia Indications: Findings: No significant endobronchial lesions or abnormalities were seen. Description of the Procedure: Bronchoscope was introduced through the ET tube the bronchoscope was then inserted into the subglottic area, followed by the trachea, bilateral mainstem bronchi, and to the level of the subsegmental bronchi. There was no evidence of intrinsic or extrinsic compression. I saw some mucus in the left lower which I suctioned out. I did left lower lobe bronchial washings. At this point, there was no evidence of any ongoing bleeding. The bronchoscope was then withdrawn and the patient was allowed to recover. Date of Service: Feb 19, 2024 Billing Provider: ESTELLE MCKNIGHT MD Common Visit Codes: PROCEDURE ONLY Procedure Codes: [id number] ESTELLE MCKNIGHT MD Feb 19, 2024 15:20
[2024-02-19] MEDS ORDERED: CEFEPIME 2GM/50ML 50 ML IV SCH (18:00)
[2024-02-19] MEDS: CEFEPIME 2GM/50ML 50 ML IV SCH (19:50)
[2024-02-20] VITALS (92 sets, daily range): BP systolic 76–144; BP diastolic 37–64; PULSE 45–64; RESP 18–28; TEMP 98.1–99.5; O2SAT 89–98
[2024-02-20 03:42] LABS: Basophils # (auto) 0.1 10 ^3/uL (0-0.2); Basophils % (auto) 0.8 % (0.0-2.0); Eosinophils # (auto) 0 10 ^3/uL (0-0.8); Eosinophils % (auto) 0.2 % (0.0-7.0); Hematocrit 40.5 % (41.0-53.0); Hemoglobin 13.5 g/dL (13.5-17.5); Lymphocytes # (auto) 0.8 10 ^3/uL (0.4-5.4); Lymphocytes % (auto) 5.4 % (10.0-50.0); Mean Corpuscular Hemoglobin 29.7 pg (28.0-32.0); Mean Corpuscular Hgb Conc. 33.3 g/dL (32.0-36.0); Mean Corpuscular Volume 89.1 fL (80.0-100.0); Monocytes % (auto) 7.1 % (0.0-12.0); Neutrophils # (auto) 12.7 10 ^3/uL (1.6-8.6); Neutrophils % (auto) 86.5 % (37.0-80.0); Platelet Count (auto) 333 10^3/uL (140-450); Red Blood Cells 4.55 10^6/uL (4.5-5.90); Red Cell Distribution Width 14.4 % (11.8-14.3); White Blood Cell 14.7 10^3/uL (4.4-10.8)
[2024-02-20 03:45] LABS: Anion Gap 11 (5-15); Carbon Dioxide 23 mmol/L (20-31); Chloride 101 mmol/L (98-107); Potassium 4.2 mmol/L (3.5-5.1); Sodium 135 mmol/L (136-145)
[2024-02-20 03:51] LABS: BUN/Creatinine Ratio 19.2 (10.0-20.0); Glucose 194 mg/dL (74-106)
[2024-02-20 03:59] LABS: Blood Urea Nitrogen 55 mg/dL (9-23)
--- NOTE | 2024-02-20 05:46 | DVH ---
CHEST RADIOGRAPH Indication:ON VENT Technique: Single frontal view of the chest was obtained COMPARISON: XY CHEST XRAY 1 VIEW on DOS: 02/19/24, XY CHEST PORTABLE on DOS: 02/18/24, XY CHEST MARGIE BLE on DOS: 02/18/24, XY CHEST XRAY 1 VIEW on DOS: 02/19/24 FINDINGS: Lines and Tubes: Endotracheal tube, enteric catheter and right central venous catheter in satisfactor y position. Lungs: Congestion Pleura: No effusion. No pneumothorax. Cardiomediastinal contours: Unremarkable Bones: Unremarkable IMPRESSION: Lines and tubes in satisfactory position. No significant interval change.
[2024-02-20 07:00] LABS: Base Excess -2.4 mmol/L (-2.0-3.0)
[2024-02-20] MEDS ORDERED: DEXTROSE (50%) 50ML SYRG IV PRN (08:45)
[2024-02-20] MEDS: ENOXAPARIN SOD 30 MG/0.3 ML SYRINGE SC SCH (09:56)
[2024-02-20] MEDS: HEPARIN SODIUM (PORCINE) 5000 UNITS/ML 1ML VIAL SC SCH (10:02)
[2024-02-20] MEDS: SODIUM CHLORIDE 0.9% 500 ML IV ONE ×2 (11:00→16:15)
[2024-02-20] MEDS: ACCU-CHEK COMFORT CURVE STRIP VI SCH (11:24)
[2024-02-20] MEDS: InsuLIN REG 1unit/0.01ml Soln (100units/ml) SC SCH (11:29)
--- NOTE | 2024-02-20 11:54 | DVHPNRES ---
Progress Note Date Seen: Feb 20, 2024 Resident Creating Document: SAMANTHA RAMIREZ RESIDENT Medical Necessity Reason Pt with a Central, PICC or Fol: Yes The following are medically ne: Central Line, Roblero Catheter Reason for roblero catheter: Strict I&O Subjective Review of Systems Patient is 78-year-old male with unknown medical history of brought to the hospital via EMS for hypertension and found to be outside at convenience store . During further evaluation emergency department, patient was diagnosed with acute stroke due to ischemia and pneumonia. Later patient was intubated on put on ventilator for worsening respiratory distress, protect of airway with diagnosis of acute stroke, pneumonia and CHF exacerbation. Past medical history: Unknown Past surgical history: Unknown Patient seen and examined in ICU department. Patient is currently on ventilator. NO other complains. No other night events. Objective vital signs Vital Sign Date Time Temp Pulse Resp B/P (MAP) Pulse Ox O2 Delivery O2 Flow Rate FiO2 02/20/24 10:04 47 28 125/57 (79) 97 40 02/20/24 10:00 Mechanical Ventilator+ 02/20/24 04:00 99.5 99.5 Total Intake and Output 02/19/24 02/19/24 02/20/24 15:00 23:00 07:00 Intake Total 576.25 ml 622.00 ml 1001.75 ml Output Total 450 ml 450 ml Balance 576.25 ml 172.00 ml 551.75 ml medications Current Medications Medications Dose Ordered Sig/Theodora Route Start Time Stop Time Status Last Admin Dose Admin Midazolam HCl 50 ml @ 1 mls/hr Q24H IV 02/11/24 09:15 02/20/24 05:41 15 MLS/HR Sodium Chloride 10 ml Q8HR IV 02/11/24 14:00 02/20/24 05:41 10 ML Fentanyl Citrate 250 ml @ 2.5 mls/hr Q24H IV 02/11/24 10:15 02/20/24 10:09 30 MLS/HR Norepinephrine Bitartrate 250 ml @ 3.75 mls/hr Q24H IV 02/11/24 18:15 02/19/24 09:54 3.75 MLS/HR Atorvastatin Calcium 40 mg HS PO 02/12/24 22:00 02/19/24 22:40 40 MG Pantoprazole Sodium 40 mg DAILY IV 02/13/24 10:00 02/20/24 09:55 40 MG Lactulose 30 ml Q8HR PO 02/13/24 12:00 02/20/24 05:41 30 ML Enteral Nutritional Formula 1,000 ml 45ML/HR GT 02/16/24 12:45 02/19/24 14:43 1,000 ML Gentamicin Sulfate 1 drop Q4HR EACHEYE 02/16/24 18:00 02/20/24 09:55 1 DROP Aspirin 81 mg DAILY PO 02/17/24 10:00 02/20/24 09:55 81 MG Hydrocortisone Sodium Succinate 100 mg Q12HR IV 02/18/24 22:00 02/20/24 09:55 100 MG Acetylcysteine 200 mg Q8HR NEB 02/18/24 22:00 02/20/24 06:39 200 MG Albuterol 2.5 mg Q8HR NEB 02/18/24 22:00 02/20/24 06:39 2.5 MG Vancomycin HCl 0 ml @ 0 mls/hr UD IV 02/18/24 17:45 Cefepime/Dextrose 50 ml @ 12.5 mls/hr Q12H IV 02/19/24 20:00 02/20/24 09:55 12.5 MLS/HR Diagnostic Test (Pha) 1 strip Q6HR 02/20/24 12:00 02/20/24 11:24 1 STRIP Insulin Human Regular Q6HR SC 02/20/24 12:00 02/20/24 11:29 3 UNITS Dextrose 50 ml UD PRN IV 02/20/24 08:45 Heparin Sodium (Porcine) 5,000 units Q12HR SC 02/20/24 10:00 02/20/24 10:02 5,000 UNITS Examination General Appearance: RASS -3, sedated and on ventilation. Head Exam: Normal inspection Neck Exam: Normal inspection. Non-tender. Normal alignment Pulmonary/Respiratory: Chest non-tender. bilateral crackles over bilateral lung lobes. Cardiovascular/Chest: Regular rate and rhythm. No murmurs. No JVD. Peripheral Pulses: 2+ Radial (R). 2+ Radial (L). 2+ Pedal (R). 2+ Pedal (L) Abdominal Exam: Normal bowel sounds. Soft. Nontender. No hepatospenomegaly. No masses, distended abdomin, no fluid thrill. Ankle Exam: Negative ankle edema Lower extremities: 2+ lower extremity edema Neuro/Mental Status: Appropriate pupillary reflex, other cranial nerve can not be assessed. laboratory and microbiology Laboratory Tests 02/20/24 03:14 Test 02/20/24 03:14 Range/Units Serum Glucose 194 H 74-106 mg/dL Microbiology Date/Time Source Procedure Growth Status 02/19/24 10:50 Bronchial Washings Gram Stain - Final Resulted 02/19/24 10:50 Bronchial Washings Respiratory Culture - Preliminary Resulted 02/14/24 12:04 Urine - Roblero Port Urine Culture - Final Complete 02/12/24 13:30 Blood Blood Culture - Final NO GROWTH AFTER 5 DAYS OF INCUBATION. Complete 02/11/24 13:06 Nose MRSA Screen - Final Complete Problem List/Assessment/Plan Problem List/Assessment/Plan Acute stroke due to ischemia Acute hypercapnic hypoxic respiratory failure due to pneumonia and CHF Left lower lobe pneumonia Gram-positive/Gram-negative Septic shock due to pneumonia Acute diastolic CHF ? ARDS Emphysema Pulmonary edema Hypertensive emergency Carotid artery stenosis: 50-69% stenosis left paroxysmal ICA DVT and PE ruled out Fatty liver Infrarenal aortic aneurysm:5.8 x 6.0 cm. Prostatomegaly Constipation Obesity Plan -on ventilator: AC/VC: Respiratory rate 26, tidal volume 550, FiO2 40 %, peep 5. -initiate antibiotic with cefepime and vancomycin -Off vasopressor Levophed: Target map greater than 65. Of Levophed. -Discontinue IV furosemide 40 mg b.i.d.. Hydrocortisone 100 mg IV b.i.d. -Echocardiogram: Left ventricular ejection fraction 60%, grade 1 diastolic dysfunction -Neurology consultation: Aspirin, Lipitor. When stable: MRI of brain an, EEG. -cardiology consultation: Continue current management. -DVT prophylaxis: Lovenox -PUD prophylaxis: Protonix Critical care time spent greater than 79 minutes. Goal of care , full code. NO family to contact. Plan discussed with Dr Estrella TRANSFER SUMMARY: Patient is 78-year-old male who found to be have hypertension and altered at outside a convenience store EMS was called. Patient does not have any family. Patient was intubated in the emergency department. Patient was treated with IV antibiotic cefepime and vancomycin. Patient was continued giving IV Lasix given patient was in volume overload status. Patient also underwent bronchoscopy for progressively desaturating even after current management. Eventually IV Lasix has been stopped given patient's kidney function was worsening, nephrology consultation has been done. Patient's oxygen requirement, peep gradually improved. Plan to do CPAP trial tomorrow a.m.. Plan discussed with: Other (RN) My Orders My Orders Orders - SAMANTHA RAMIREZ Procedure Category Date Status Time Respiratory Culture AMBER 02/19/24 In Process W/ Gs 12:06 Cytology ABMER 02/19/24 Transmitted 12:06 Cefepime 2gm/50ml PHA 02/19/24 In Process 20:00 Chest Xray 1 View XY 02/20/24 Resulted 04:00 Abg W/ Co-Ox RT 02/20/24 Logged 06:00 Glucose Blood PHA 02/20/24 In Process (Accu-Chek Comfort 12:00 Insulin R (Human) PHA 02/20/24 In Process (Insulin R) 12:00 Dextrose 50% Syringe PHA 02/20/24 In Process 08:45 Heparin Sodium PHA 02/20/24 In Process (Porcine) 10:00 Urinalysis LAB 02/20/24 Logged 08:38 Communication Order ORDERS 02/20/24 Transmitted 08:48 Communication Order ORDERS 02/20/24 Transmitted 08:54 Sodium Chloride 0.9% PHA 02/20/24 Logged 11:00 Dietary Evaluation Review Comments: 1) Recommend CCHO-60, Cardiac 2gNa LoFat LoCholesterol diet when medically feasible. 2) If GI accessible but PO feeding is not an option, consider glucerna 1.2 @45ml/hr. In 24 hrs, pt will be receiving 65g protein and 1296 kcal.Adj and increase infusion rate as tolerated. 3) If NPO > 7 days and GI is not accesible, consider TPN to support 75% of her energy and protein needs. Expected Outcomes/Goals: Gradual weight loss, improved glucose Date of Service: Feb 20, 2024 Billing Provider: ESTELLE ESTRELLA MD Common Visit Codes: [id number] CARE 30-74 MIN SAMANTHA RAMIREZ RESIDENT Feb 20, 2024 11:54 ETSELLE ESTRELLA MD Mar 01, 2024 16:04
--- NOTE | 2024-02-20 14:26 | DVHPN2 ---
Progress Note - Dictate Date Seen: Feb 20, 2024 Medical Necessity Reason Pt with a Central, PICC or Fol: Yes The following are medically ne: Central Line, Roblero Catheter Reason for roblero catheter: Strict I&O Subjective Mr. Glass is a 78 years old gentleman with a history of obesity, the patient was [facility] to the [facility] on 02/11/2024 with a chief company of elevated blood pressure. I have seen and examined the patient, I have discussed with his nurse, the patient was remained intubated, responds to strong painful stimuli Levo five mcg/min, fentanyl 200 mcg/hour, FiO2: 40% UDS, 02/11/2024: Negative Plasma alcohol, 02/11/2024: 3.4 Urinalysis, 02/11/2024: Unremarkable ABG, 02/11/2024: Respiratory acidosis CBC, 02/11/2024: Unremarkable BMP 02/11/2024: Unremarkable HCO3, 02/11/2024: 29, 02/12/2024, 33 Liver function tests, 02/12/2024: Normal HbA1c, 02/11/2024: 7.8 TG/Chol/LDL/LDL/HDL, 02/11/2024: 190/171/109/42 TSH, 02/11/2024: 4.29 EEG, 02/12/2024: Moderately abnormal EEG Carotid Doppler, 02/11/2024: Normal left ventricular size and dimension. Normal left ventricular systolic function estimated ejection fraction 60%. There is a grade 1 diastolic dysfunction. Normal right ventricular size and dimension. Normal right ventricular systolic function. Normal biatrial size and dimension. The aortic valve is thickened and sclerotic there is [id number] aortic valve stenosis with a peak gradient of33 and mean gradient of 18 mm of mercury. The mitral valve is mildly thickened there is mild mitral valve regurgitation. There is mild tricuspid valve regurgitation. The pulmonary valve is grossly normal. No pericardial effusion. Carotid Doppler, 02/11/2024: 1. 50-69% stenosis at the level of the left proximal ICA. 2. No hemodynamically significant stenosis noted in the right carotid system. Chest x-ray, 02/11/2024: Lines and tubes in appropriate position. Cardiomegaly with small left pleural effusion and diffuse interstitial opacities which may reflect pulmonary edema CT head, 02/11/2024: 1. Well-defined hypodensity of approximate size 10 x 8 mm in the simon on the left side, concerning for acute infarct. 2. Chronic periventricular ischemic changes. 3. Cerebral and cerebellar atrophy, likely age-related. 4. Chronic and / or ancillary findings as described above. 5. Advised further evaluation with MRI brain without contrast. CT head, 02/15/2024: 1. No acute intracranial process. 2. Moderate acute pansinusitis. vital signs Vital Sign Date Time Temp Pulse Resp B/P (MAP) Pulse Ox O2 Delivery O2 Flow Rate FiO2 02/20/24 14:14 47 26 104/49 (67) 91 50 02/20/24 14:00 Mechanical Ventilator+ 02/20/24 10:00 98.4 98.4 Total Intake and Output 02/19/24 02/19/24 02/20/24 15:00 23:00 07:00 Intake Total 576.25 ml 622.00 ml 1054.50 ml Output Total 450 ml 450 ml Balance 576.25 ml 172.00 ml 604.50 ml medications Current Medications Medications Dose Ordered Sig/Theodora Route Start Time Stop Time Status Last Admin Dose Admin Midazolam HCl 50 ml @ 1 mls/hr Q24H IV 02/11/24 09:15 02/20/24 05:41 15 MLS/HR Sodium Chloride 10 ml Q8HR IV 02/11/24 14:00 02/20/24 14:02 10 ML Fentanyl Citrate 250 ml @ 2.5 mls/hr Q24H IV 02/11/24 10:15 02/20/24 10:09 30 MLS/HR Norepinephrine Bitartrate 250 ml @ 3.75 mls/hr Q24H IV 02/11/24 18:15 02/19/24 09:54 3.75 MLS/HR Atorvastatin Calcium 40 mg HS PO 02/12/24 22:00 02/19/24 22:40 40 MG Pantoprazole Sodium 40 mg DAILY IV 02/13/24 10:00 02/20/24 09:55 40 MG Lactulose 30 ml Q8HR PO 02/13/24 12:00 02/20/24 13:58 30 ML Enteral Nutritional Formula 1,000 ml 45ML/HR GT 02/16/24 12:45 02/19/24 14:43 1,000 ML Gentamicin Sulfate 1 drop Q4HR EACHEYE 02/16/24 18:00 02/20/24 13:58 1 DROP Aspirin 81 mg DAILY PO 02/17/24 10:00 02/20/24 09:55 81 MG Hydrocortisone Sodium Succinate 100 mg Q12HR IV 02/18/24 22:00 02/20/24 09:55 100 MG Acetylcysteine 200 mg Q8HR NEB 02/18/24 22:00 02/20/24 14:14 200 MG Albuterol 2.5 mg Q8HR NEB 02/18/24 22:00 02/20/24 14:14 2.5 MG Vancomycin HCl 0 ml @ 0 mls/hr UD IV 02/18/24 17:45 Cefepime/Dextrose 50 ml @ 12.5 mls/hr Q12H IV 02/19/24 20:00 02/20/24 09:55 12.5 MLS/HR Diagnostic Test (Pha) 1 strip Q6HR 02/20/24 12:00 02/20/24 11:24 1 STRIP Insulin Human Regular Q6HR SC 02/20/24 12:00 02/20/24 11:29 3 UNITS Dextrose 50 ml UD PRN IV 02/20/24 08:45 Heparin Sodium (Porcine) 5,000 units Q12HR SC 02/20/24 10:00 02/20/24 10:02 5,000 UNITS objective The patient is well-nourished and well-developed with no distress. The patient is intubated MENTAL STATUS: Subjective CRANIAL NERVES: Pupils are equal, round and slightly reactive, 1-2mm. There are corneal reflexes and doll's eyes phenomenon. No signs of facial weakness. There are gagging or coughing reflexes SENSATION: No responses to pain stimuli. MOTOR: Normal tone in the upper and lower extremity. Normal muscle bulk. No fasciculations. No spontaneous movement. REFLEXES: Deep tendon reflexes are symmetrical. No pathological reflexes. CEREBELLAR/COORDINATION: Deferred GAIT/STATION: deferred. laboratory and microbiology Laboratory Tests 02/20/24 03:14 Test 02/20/24 03:14 Range/Units Serum Glucose 194 H 74-106 mg/dL Problem List Altered mental status Hypoxic encephalopathy Metabolic encephalopathy Respiratory failure Hypertension emergency Respiratory acidosis Sepsis, ? Septic shock Pneumonia Cellulitis in the legs Stroke per the 1st CT, not confirmed by the 2nd CT head on 02/15/2024 Left ICA moderate stenosis Assessment/Plan Monitoring Supportive treatments ICU care Consider MRI brain scan later Stabilize vitals/pressor drip Respiratory support/vent management Blood culture IV antibiotics Aspirin 81 mg daily/300 mg suppository daily Lipitor 40 mg daily DVT prophylaxis Pulmonology evaluation Cardiology evaluation Social service on case More recommendation per clinical course This medical document was created using an electronic medical record system with [employer] dictation system. Although this document has been carefully reviewed, there may still be some phonetic and typographical errors. These areas are purely typographical due to imperfections of the software programs, and do not reflect any compromise in the patient's medical care. Prognosis guarded Dietary Evaluation Review Comments: 1) Recommend CCHO-60, Cardiac 2gNa LoFat LoCholesterol diet when medically feasible. 2) If GI accessible but PO feeding is not an option, consider glucerna 1.2 @45ml/hr. In 24 hrs, pt will be receiving 65g protein and 1296 kcal.Adj and increase infusion rate as tolerated. 3) If NPO > 7 days and GI is not accesible, consider TPN to support 75% of her energy and protein needs. Expected Outcomes/Goals: Gradual weight loss, improved glucose Plan discussed with: Other TRAV CRUZ MD Feb 20, 2024 14:26
[2024-02-20 15:08] LABS: Urine Bacteria FEW /hpf (None Seen); Urine Blood 3+ /uL (Negative); Urine Clarity Ex.Turbid (Clear); Urine Color Brown (Yellow); Urine Mucus FEW (None Seen); Urine Protein, UAD 2+ (Negative); Urine Specific Gravity 1.014 (1.001-1.035); Urine Urobilinogen Normal (Negative); Urine WBC 107 /hpf (0 - 3); Urine pH 5.5 (5.0-9.0)
[2024-02-20 18:49] LABS: Chloride 103 mmol/L (98-107); Potassium 4.1 mmol/L (3.5-5.1); Sodium 138 mmol/L (136-145)
[2024-02-20 18:50] LABS: Anion Gap 12 (5-15); Calcium 8.6 mg/dL (8.7-10.4); Carbon Dioxide 23 mmol/L (20-31)
[2024-02-20 18:55] LABS: BUN/Creatinine Ratio 21.5 (10.0-20.0); Glucose 224 mg/dL (74-106)
--- NOTE | 2024-02-20 18:55 | DVHINCON2 ---
Date of service: Feb 20, 2024 Reason for Consultation KARISSA History of Present Illness 78-year-old male presented to the hospital BIB EMS [place]. He was intubated in the field. His hospital course is notable for new diagnosis CVA His hospital course was complicated by septic shock secondary to pneumonia. He is noted to have worsening pulm condition consistent w/ ARDS. Allergies: Coded Allergies: NO KNOWN ALLERGIES (Unverified , 02/11/24) Current Medications Current Medications Medications (Trade) Dose Ordered Sig/Theodora Route PRN Reason Start Time Stop Time Status Last Admin Enoxaparin Sodium (Lovenox) 30 mg DAILY SC 02/20/24 10:00 02/20/24 10:47 DC Diagnostic Test (Pha) (Accu-Chek Comfort Curve T) 1 strip Q6HR 02/20/24 12:00 02/20/24 17:14 Insulin Human Regular (InsuLIN R) Q6HR SC 02/20/24 12:00 02/20/24 17:11 Dextrose 50 ml UD PRN IV Blood Sugar LESS THAN 60 02/20/24 08:45 Heparin Sodium (Porcine) 5,000 units Q12HR SC 02/20/24 10:00 02/20/24 10:02 Review of Systems cannot obtain due to critical ill H&P Exam Vital Signs/I&O Vital Sign Date Time Temp Pulse Resp B/P (MAP) Pulse Ox O2 Delivery O2 Flow Rate FiO2 02/20/24 20:15 26 96 Mechanical Ventilator+ 70 70 02/20/24 20:12 51 134/53 (80) 02/20/24 15:15 98.4 98.4 Intake and Output 02/19/24 02/20/24 19:00 07:00 Intake Total 983.25 ml 1269.50 ml Output Total 450 ml 450 ml Balance 533.25 ml 819.50 ml Intake Oral 60 ml 60 ml IV Total 791.25 ml 674.50 ml Tube Feeding 132 ml 535 ml Output Urine Total 450 ml 450 ml Physical Exam obese male intubated b/l bruising anasarca osbaldo Labs/Diagnostic Data Labs/Diagnostic Data Laboratory Tests Test 02/20/24 18:35 02/20/24 17:09 02/20/24 14:57 02/20/24 11:25 Range/Units Sodium Level 138 136-145 mmol/L Potassium Level 4.1 3.5-5.1 mmol/L Chloride Level 103 98-107 mmol/L Carbon Dioxide Level 23 20-31 mmol/L Anion Gap 12 5-15 Blood Urea Nitrogen 76 #H 9-23 mg/dL Creatinine 3.54 H 0.700-1.30 mg/dL Glomerular Filtration Rate Calc 17 >90 mL/min BUN/Creatinine Ratio 21.5 H 10.0-20.0 Serum Glucose 224 H 74-106 mg/dL Calcium Level 8.6 L 8.7-10.4 mg/dL POC Glucose 236 H 191 H 70-106 mg/dl Urine Color Brown H Yellow Urine Clarity Ex.turbid Clear Urine pH 5.5 5.0-9.0 Urine Specific [place] 1.014 1.001-1.035 Urine Protein 2+ H Negative Urine Ketones Negative Negative Urine Blood 3+ H Negative /uL Urine Nitrite Negative Negative Urine Bilirubin Negative Negative Urine Urobilinogen Normal Negative mg/dL Urine Leukocyte Esterase 1+ Negative /uL Urine RBC 124 0 - 3 /hpf Urine WBC 107 0 - 3 /hpf Urine Squamous Epithelial Cells Few <5 /hpf Urine Bacteria Few H None Seen /hpf Urine Mucus Few None Seen Urine Creatinine 85.51 30.0-125.0 mg/dL Urine Sodium 15 L 40-220 mmol/L Urine Glucose Normal Normal mg/dL Test 02/20/24 06:45 02/20/24 03:14 02/19/24 18:09 02/19/24 14:36 Range/Units Blood Gas Specimen Type Arterial Arterial Blood Gas Sample Site Right radial Right radial Blood Gas Patient Temperature 37.0 37.0 Arterial Blood Date Drawn [id number] Arterial Blood pH 7.407 7.327 L 7.350-7.450 Arterial Blood Partial Pressure CO2 35.0 48.8 H 35.0-48.0 mmHg Arterial Blood Partial Pressure O2 86.0 69.9 L 83.0-108.0 mmHg Arterial Blood HCO3 21.5 25.0 21.0-28.0 mmol/L Arterial Blood Oxygen Saturation 96.1 92.3 L 94.0-98.0 % Arterial Blood Base Excess -2.4 L -1.5 -2.0-3.0 mmol/L Arterial Blood Oxyhemoglobin 95.0 91.6 L 94.0-98.0 % Arterial Blood Carboxyhemoglobin 0.9 0.6 0.5-1.5 % Arterial Blood Methemoglobin 0.2 0.2 0.0-1.5 % Rashaun Test Modified Modified Blood Gas Total Hemoglobin 14.60 15.00 13.5-17.5 g/dL Blood Gas Set Respiration Rate 26.0 26.0 Blood Gas Modality Vent - ac Vent - ac FiO2 % 40.0 50.0 Blood Gas Tidal Volume 550.0 550.0 Blood Gas PEEP or CPAP 10.0 14.0 White Blood Count 14.7 H 4.4-10.8 10^3/uL Red Blood Count 4.55 4.5-5.90 10^6/uL Hemoglobin 13.5 13.5-17.5 g/dL Hematocrit 40.5 L 41.0-53.0 % Mean Corpuscular Volume 89.1 80.0-100.0 fL Mean Corpuscular Hemoglobin 29.7 28.0-32.0 pg Mean Corpuscular Hemoglobin Concent 33.3 32.0-36.0 g/dL Red Cell Distribution Width 14.4 H 11.8-14.3 % Platelet Count 333 140-450 10^3/uL Mean Platelet Volume 8.2 6.9-10.8 fL Neutrophils (%) (Auto) 86.5 H 37.0-80.0 % Lymphocytes (%) (Auto) 5.4 L 10.0-50.0 % Monocytes (%) (Auto) 7.1 0.0-12.0 % Eosinophils (%) (Auto) 0.2 0.0-7.0 % Basophils (%) (Auto) 0.8 0.0-2.0 % Neutrophils # (Auto) 12.7 H 1.6-8.6 10 ^3/uL Lymphocytes # (Auto) 0.8 0.4-5.4 10 ^3/uL Monocytes # (Auto) 1.0 0-1.3 10 ^3/uL Eosinophils # (Auto) 0 0-0.8 10 ^3/uL Basophils # (Auto) 0.1 0-0.2 10 ^3/uL Nucleated Red Blood Cells 0.0 % Sodium Level 135 L 136-145 mmol/L Potassium Level 4.2 3.5-5.1 mmol/L Chloride Level 101 98-107 mmol/L Carbon Dioxide Level 23 20-31 mmol/L Anion Gap 11 5-15 Blood Urea Nitrogen 55 #H 9-23 mg/dL Creatinine 2.86 H 0.700-1.30 mg/dL Glomerular Filtration Rate Calc 22 >90 mL/min BUN/Creatinine Ratio 19.2 10.0-20.0 Serum Glucose 194 H 74-106 mg/dL Calcium Level 9.0 8.7-10.4 mg/dL Random Vancomycin Level 33.8 H 5-10 ug/mL Vancomycin Level Trough 37.4 *H 5-10 ug/mL Test 02/19/24 12:50 02/19/24 11:44 02/19/24 05:51 02/19/24 03:10 Range/Units Blood Gas Specimen Type Arterial Arterial Blood Gas Sample Site Right radial Right radial Blood Gas Patient Temperature 37.0 37.0 Arterial Blood Date Drawn [id number] Arterial Blood pH 7.293 L 7.324 L 7.350-7.450 Arterial Blood Partial Pressure CO2 53.3 H 46.9 35.0-48.0 mmHg Arterial Blood Partial Pressure O2 74.0 L 166.9 H 83.0-108.0 mmHg Arterial Blood HCO3 25.2 23.8 21.0-28.0 mmol/L Arterial Blood Oxygen Saturation 92.5 L 99.0 H 94.0-98.0 % Arterial Blood Base Excess -2.1 L -2.5 L -2.0-3.0 mmol/L Arterial Blood Oxyhemoglobin 91.8 L 98.5 H 94.0-98.0 % Arterial Blood Carboxyhemoglobin 0.4 L 0.3 L 0.5-1.5 % Arterial Blood Methemoglobin 0.4 0.2 0.0-1.5 % Rashaun Test Modified Modified Blood Gas Total Hemoglobin 15.20 14.80 13.5-17.5 g/dL Blood Gas Set Respiration Rate 22.0 22.0 Blood Gas Modality Vent - ac Vent - ac FiO2 % 50.0 75.0 Blood Gas Tidal Volume 550.0 550.0 Blood Gas PEEP or CPAP 14.0 18.0 HIV (1&2) Antibody Negative Negative White Blood Count 13.5 #H 4.4-10.8 10^3/uL Red Blood Count 4.98 4.5-5.90 10^6/uL Hemoglobin 14.5 13.5-17.5 g/dL Hematocrit 44.5 41.0-53.0 % Mean Corpuscular Volume 89.4 80.0-100.0 fL Mean Corpuscular Hemoglobin 29.1 28.0-32.0 pg Mean Corpuscular Hemoglobin Concent 32.6 32.0-36.0 g/dL Red Cell Distribution Width 14.7 H 11.8-14.3 % Platelet Count 340 140-450 10^3/uL Mean Platelet Volume 7.8 6.9-10.8 fL Neutrophils (%) (Auto) 89.5 H 37.0-80.0 % Lymphocytes (%) (Auto) 5.4 L 10.0-50.0 % Monocytes (%) (Auto) 4.2 0.0-12.0 % Eosinophils (%) (Auto) 0.1 0.0-7.0 % Basophils (%) (Auto) 0.8 0.0-2.0 % Neutrophils # (Auto) 12.1 H 1.6-8.6 10 ^3/uL Lymphocytes # (Auto) 0.7 0.4-5.4 10 ^3/uL Monocytes # (Auto) 0.6 0-1.3 10 ^3/uL Eosinophils # (Auto) 0 0-0.8 10 ^3/uL Basophils # (Auto) 0.1 0-0.2 10 ^3/uL Nucleated Red Blood Cells 0.0 % Sodium Level 135 L 136-145 mmol/L Potassium Level 4.6 3.5-5.1 mmol/L Chloride Level 98 98-107 mmol/L Carbon Dioxide Level 23 20-31 mmol/L Anion Gap 14 5-15 Blood Urea Nitrogen 37 #H 9-23 mg/dL Creatinine 1.86 H 0.700-1.30 mg/dL Glomerular Filtration Rate Calc 36 >90 mL/min BUN/Creatinine Ratio 19.9 10.0-20.0 Serum Glucose 179 H 74-106 mg/dL Calcium Level 9.6 8.7-10.4 mg/dL Test 02/18/24 19:50 02/18/24 16:53 02/18/24 06:22 02/18/24 00:44 Range/Units Blood Gas Specimen Type Arterial Arterial Arterial Blood Gas Sample Site Right radial Right radial Right radial Blood Gas Patient Temperature 37.0 37.0 37.0 Arterial Blood Date Drawn [id number] Arterial Blood pH 7.331 L 7.334 L 7.401 7.350-7.450 Arterial Blood Partial Pressure CO2 52.4 H 60.1 *H 48.5 H 35.0-48.0 mmHg Arterial Blood Partial Pressure O2 185.2 H 139.9 H 66.7 L 83.0-108.0 mmHg Arterial Blood HCO3 27.1 31.3 H 29.4 H 21.0-28.0 mmol/L Arterial Blood Oxygen Saturation 99.0 H 98.5 H 92.2 L 94.0-98.0 % Arterial Blood Base Excess 0.2 3.5 H 3.7 H -2.0-3.0 mmol/L Arterial Blood Oxyhemoglobin 98.6 H 97.9 91.3 L 94.0-98.0 % Arterial Blood Carboxyhemoglobin 0.2 L 0.3 L 1.0 0.5-1.5 % Arterial Blood Methemoglobin 0.2 0.3 0.0 0.0-1.5 % Rashaun Test Modified Modified Modified Blood Gas Total Hemoglobin 15.60 15.60 15.30 13.5-17.5 g/dL Blood Gas Set Respiration Rate 22.0 18.0 18.0 Blood Gas Modality Vent - ac Vent - ac Vent - ac Blood Gas Spontaneous Rate 22 FiO2 % 100.0 100.0 60.0 Blood Gas Tidal Volume 550.0 550.0 550.0 Blood Gas Spontaneous Tidal Volume 570 Blood Gas Inspiratory Pressure 37.0 Blood Gas PEEP or CPAP 18.0 18.0 5.0 Bl Gas Inspiratory/Expiratory Ratio 1:2.2 Specimen Drawn By [facility]am [facility] Blood Gas Critical Value Read Back Yes Blood Gas Notified Whom ilda Estrella md Blood Gas Notified Time [id number] Blood Gas Notified By Vice President Regulatory suzette hannon White Blood Count 10.5 4.4-10.8 10^3/uL Red Blood Count 4.90 4.5-5.90 10^6/uL Hemoglobin 14.7 13.5-17.5 g/dL Hematocrit 43.4 41.0-53.0 % Mean Corpuscular Volume 88.5 80.0-100.0 fL Mean Corpuscular Hemoglobin 30.0 28.0-32.0 pg Mean Corpuscular Hemoglobin Concent 33.9 32.0-36.0 g/dL Red Cell Distribution Width 14.3 11.8-14.3 % Platelet Count 340 140-450 10^3/uL Mean Platelet Volume 7.8 6.9-10.8 fL Neutrophils (%) (Auto) 72.2 37.0-80.0 % Lymphocytes (%) (Auto) 12.8 10.0-50.0 % Monocytes (%) (Auto) 10.2 0.0-12.0 % Eosinophils (%) (Auto) 4.0 0.0-7.0 % Basophils (%) (Auto) 0.8 0.0-2.0 % Neutrophils # (Auto) 7.5 1.6-8.6 10 ^3/uL Lymphocytes # (Auto) 1.3 0.4-5.4 10 ^3/uL Monocytes # (Auto) 1.1 0-1.3 10 ^3/uL Eosinophils # (Auto) 0.4 0-0.8 10 ^3/uL Basophils # (Auto) 0.1 0-0.2 10 ^3/uL Nucleated Red Blood Cells 0.0 % Sodium Level 135 L 136-145 mmol/L Potassium Level 3.6 3.5-5.1 mmol/L Chloride Level 99 98-107 mmol/L Carbon Dioxide Level 28 20-31 mmol/L Anion Gap 8 5-15 Blood Urea Nitrogen 27 H 9-23 mg/dL Creatinine 1.28 0.700-1.30 mg/dL Glomerular Filtration Rate Calc 57 >90 mL/min BUN/Creatinine Ratio 21.1 H 10.0-20.0 Serum Glucose 131 H 74-106 mg/dL Calcium Level 9.4 8.7-10.4 mg/dL Test 02/17/24 06:24 02/17/24 03:36 02/16/24 13:00 02/16/24 08:20 Range/Units Blood Gas Specimen Type Arterial Blood Gas Sample Site Right radial Blood Gas Patient Temperature 37.0 Arterial Blood Date Drawn [id number] Arterial Blood pH 7.389 7.350-7.450 Arterial Blood Partial Pressure CO2 48.2 H 35.0-48.0 mmHg Arterial Blood Partial Pressure O2 61.0 L 83.0-108.0 mmHg Arterial Blood HCO3 28.5 H 21.0-28.0 mmol/L Arterial Blood Oxygen Saturation 89.8 L 94.0-98.0 % Arterial Blood Base Excess 2.6 -2.0-3.0 mmol/L Arterial Blood Oxyhemoglobin 89.3 L 94.0-98.0 % Arterial Blood Carboxyhemoglobin 0.4 L 0.5-1.5 % Arterial Blood Methemoglobin 0.2 0.0-1.5 % Rashaun Test Modified Blood Gas Total Hemoglobin 15.80 13.5-17.5 g/dL Blood Gas Set Respiration Rate 18.0 Blood Gas Modality Vent - ac FiO2 % 50.0 Blood Gas Tidal Volume 550.0 Blood Gas PEEP or CPAP 5.0 White Blood Count 8.7 8.2 4.4-10.8 10^3/uL Red Blood Count 4.70 4.95 4.5-5.90 10^6/uL Hemoglobin 14.3 14.6 13.5-17.5 g/dL Hematocrit 42.1 44.4 41.0-53.0 % Mean Corpuscular Volume 89.5 89.6 80.0-100.0 fL Mean Corpuscular Hemoglobin 30.3 29.5 28.0-32.0 pg Mean Corpuscular Hemoglobin Concent 33.9 33.0 32.0-36.0 g/dL Red Cell Distribution Width 14.3 14.6 H 11.8-14.3 % Platelet Count 285 308 140-450 10^3/uL Mean Platelet Volume 7.7 7.6 6.9-10.8 fL Neutrophils (%) (Auto) 69.2 67.5 37.0-80.0 % Lymphocytes (%) (Auto) 15.3 17.2 10.0-50.0 % Monocytes (%) (Auto) 10.0 9.3 0.0-12.0 % Eosinophils (%) (Auto) 5.3 5.1 0.0-7.0 % Basophils (%) (Auto) 0.2 0.9 0.0-2.0 % Neutrophils # (Auto) 6.1 5.5 1.6-8.6 10 ^3/uL Lymphocytes # (Auto) 1.3 1.4 0.4-5.4 10 ^3/uL Monocytes # (Auto) 0.9 0.8 0-1.3 10 ^3/uL Eosinophils # (Auto) 0.5 0.4 0-0.8 10 ^3/uL Basophils # (Auto) 0 0.1 0-0.2 10 ^3/uL Nucleated Red Blood Cells 0.1 0.1 % Sodium Level 136 136 136-145 mmol/L Potassium Level 3.5 3.6 3.5-5.1 mmol/L Chloride Level 98 99 98-107 mmol/L Carbon Dioxide Level 32 H 32 H 20-31 mmol/L Anion Gap 6 5 5-15 Blood Urea Nitrogen 23 20 9-23 mg/dL Creatinine 1.08 1.04 0.700-1.30 mg/dL Glomerular Filtration Rate Calc 70 73 >90 mL/min BUN/Creatinine Ratio 21.3 H 19.2 10.0-20.0 Serum Glucose 115 H 108 H 74-106 mg/dL Calcium Level 9.3 9.4 8.7-10.4 mg/dL Influenza Type A Antigen Negative Negative Influenza Type B Antigen Negative Negative SARS-CoV-2 Antigen (Rapid) Negative NEGATIVE Phosphorus Level 3.1 2.4-5.1 mg/dL Magnesium Level 1.8 1.6-2.6 mg/dL Total Bilirubin 0.5 0.2-1.0 mg/dL Aspartate Amino Transferase (AST) 29 13-40 U/L Alanine Aminotransferase (ALT) 16 7-40 U/L Alkaline Phosphatase 90 46-116 U/L Total Protein 7.0 5.7-8.2 g/dL Albumin 3.6 3.2-4.8 g/dL Test 02/16/24 06:23 02/15/24 06:55 02/15/24 03:07 02/14/24 06:15 Range/Units Blood Gas Specimen Type Arterial Arterial Arterial Blood Gas Sample Site Right radial Right radial Right radial Blood Gas Patient Temperature 37.0 37.0 37.0 Arterial Blood Date Drawn [id number] Arterial Blood pH 7.439 7.449 7.417 7.350-7.450 Arterial Blood Partial Pressure CO2 47.0 40.7 43.0 35.0-48.0 mmHg Arterial Blood Partial Pressure O2 59.5 L 57.6 L 58.3 L 83.0-108.0 mmHg Arterial Blood HCO3 31.1 H 27.6 27.1 21.0-28.0 mmol/L Arterial Blood Oxygen Saturation 90.0 L 89.6 L 89.7 L 94.0-98.0 % Arterial Blood Base Excess 5.8 H 3.3 H 2.2 -2.0-3.0 mmol/L Arterial Blood Oxyhemoglobin 89.0 L 88.8 L 88.7 L 94.0-98.0 % Arterial Blood Carboxyhemoglobin 1.0 0.6 1.0 0.5-1.5 % Arterial Blood Methemoglobin 0.1 0.3 0.1 0.0-1.5 % Rashaun Test Modified Modified Modified Blood Gas Total Hemoglobin 16.20 15.60 15.20 13.5-17.5 g/dL Blood Gas Set Respiration Rate 18.0 22.0 22.0 Blood Gas Modality Vent - ac Vent - ac Vent - ac FiO2 % 50.0 35.0 35.0 Blood Gas Tidal Volume 550.0 550.0 550.0 Blood Gas PEEP or CPAP 5.0 8.0 8.0 White Blood Count 8.7 4.4-10.8 10^3/uL Red Blood Count 4.78 4.5-5.90 10^6/uL Hemoglobin 14.3 13.5-17.5 g/dL Hematocrit 42.7 41.0-53.0 % Mean Corpuscular Volume 89.2 80.0-100.0 fL Mean Corpuscular Hemoglobin 30.0 28.0-32.0 pg Mean Corpuscular Hemoglobin Concent 33.6 32.0-36.0 g/dL Red Cell Distribution Width 14.7 H 11.8-14.3 % Platelet Count 295 140-450 10^3/uL Mean Platelet Volume 7.4 6.9-10.8 fL Neutrophils (%) (Auto) 70.3 37.0-80.0 % Lymphocytes (%) (Auto) 14.5 10.0-50.0 % Monocytes (%) (Auto) 9.2 0.0-12.0 % Eosinophils (%) (Auto) 4.8 0.0-7.0 % Basophils (%) (Auto) 1.2 0.0-2.0 % Neutrophils # (Auto) 6.1 1.6-8.6 10 ^3/uL Lymphocytes # (Auto) 1.3 0.4-5.4 10 ^3/uL Monocytes # (Auto) 0.8 0-1.3 10 ^3/uL Eosinophils # (Auto) 0.4 0-0.8 10 ^3/uL Basophils # (Auto) 0.1 0-0.2 10 ^3/uL Nucleated Red Blood Cells 0.2 % Sodium Level 135 L 136-145 mmol/L Potassium Level 3.6 3.5-5.1 mmol/L Chloride Level 98 98-107 mmol/L Carbon Dioxide Level 29 20-31 mmol/L Anion Gap 8 5-15 Blood Urea Nitrogen 13 9-23 mg/dL Creatinine 0.88 0.700-1.30 mg/dL Glomerular Filtration Rate Calc 87 >90 mL/min BUN/Creatinine Ratio 14.8 10.0-20.0 Serum Glucose 132 H 74-106 mg/dL Calcium Level 9.1 8.7-10.4 mg/dL Total Bilirubin 0.7 0.2-1.0 mg/dL Aspartate Amino Transferase (AST) 17 13-40 U/L Alanine Aminotransferase (ALT) 13 7-40 U/L Alkaline Phosphatase 88 46-116 U/L Total Protein 6.4 5.7-8.2 g/dL Albumin 3.5 3.2-4.8 g/dL Test 02/14/24 03:17 02/13/24 08:12 02/13/24 03:10 02/12/24 08:20 Range/Units White Blood Count 9.6 10.0 4.4-10.8 10^3/uL Red Blood Count 4.80 4.87 4.5-5.90 10^6/uL Hemoglobin 14.4 14.4 13.5-17.5 g/dL Hematocrit 43.3 43.9 41.0-53.0 % Mean Corpuscular Volume 90.2 90.1 80.0-100.0 fL Mean Corpuscular Hemoglobin 30.0 29.6 28.0-32.0 pg Mean Corpuscular Hemoglobin Concent 33.3 32.9 32.0-36.0 g/dL Red Cell Distribution Width 14.9 H 15.2 H 11.8-14.3 % Platelet Count 332 345 140-450 10^3/uL Mean Platelet Volume 7.8 7.8 6.9-10.8 fL Neutrophils (%) (Auto) 72.4 76.3 37.0-80.0 % Lymphocytes (%) (Auto) 14.7 12.0 10.0-50.0 % Monocytes (%) (Auto) 8.0 6.6 0.0-12.0 % Eosinophils (%) (Auto) 3.6 4.0 0.0-7.0 % Basophils (%) (Auto) 1.3 1.1 0.0-2.0 % Neutrophils # (Auto) 6.9 7.6 1.6-8.6 10 ^3/uL Lymphocytes # (Auto) 1.4 1.2 0.4-5.4 10 ^3/uL Monocytes # (Auto) 0.8 0.7 0-1.3 10 ^3/uL Eosinophils # (Auto) 0.3 0.4 0-0.8 10 ^3/uL Basophils # (Auto) 0.1 0.1 0-0.2 10 ^3/uL Nucleated Red Blood Cells 0.2 0.0 % Sodium Level 136 136 136-145 mmol/L Potassium Level 3.7 3.8 3.5-5.1 mmol/L Chloride Level 99 99 98-107 mmol/L Carbon Dioxide Level 29 30 20-31 mmol/L Anion Gap 8 7 5-15 Blood Urea Nitrogen 13 12 9-23 mg/dL Creatinine 0.90 0.97 0.700-1.30 mg/dL Glomerular Filtration Rate Calc 87 79 >90 mL/min BUN/Creatinine Ratio 14.4 12.4 10.0-20.0 Serum Glucose 127 H 140 H 74-106 mg/dL Calcium Level 9.1 9.0 8.7-10.4 mg/dL Blood Gas Specimen Type Arterial Arterial Blood Gas Sample Site Right radial Right radial Blood Gas Patient Temperature 37.0 37.0 Arterial Blood Date Drawn [id number] Arterial Blood pH 7.419 7.427 7.350-7.450 Arterial Blood Partial Pressure CO2 44.6 46.2 35.0-48.0 mmHg Arterial Blood Partial Pressure O2 67.6 L 93.4 83.0-108.0 mmHg Arterial Blood HCO3 28.2 H 29.8 H 21.0-28.0 mmol/L Arterial Blood Oxygen Saturation 93.0 L 96.9 94.0-98.0 % Arterial Blood Base Excess 3.1 H 4.5 H -2.0-3.0 mmol/L Arterial Blood Oxyhemoglobin 91.7 L 96.5 94.0-98.0 % Arterial Blood Carboxyhemoglobin 1.1 0.1 L 0.5-1.5 % Arterial Blood Methemoglobin 0.3 0.3 0.0-1.5 % Rashaun Test Modified Modified Blood Gas Total Hemoglobin 14.80 15.30 13.5-17.5 g/dL Blood Gas Set Respiration Rate 22.0 22.0 Blood Gas Modality Vent - ac Vent - ac Blood Gas Spontaneous Rate 22 FiO2 % 45.0 90.0 Blood Gas Tidal Volume 550.0 550.0 Blood Gas PEEP or CPAP 10.0 10.0 Specimen Drawn By [facility] Blood Gas Notified Time [id number] Total Bilirubin 0.4 0.2-1.0 mg/dL Aspartate Amino Transferase (AST) 12 L 13-40 U/L Alanine Aminotransferase (ALT) 14 7-40 U/L Alkaline Phosphatase 91 46-116 U/L Total Protein 6.5 5.7-8.2 g/dL Albumin 3.6 3.2-4.8 g/dL Test 02/12/24 03:07 02/11/24 18:45 02/11/24 16:30 02/11/24 15:03 Range/Units White Blood Count 8.0 4.4-10.8 10^3/uL Red Blood Count 4.71 4.5-5.90 10^6/uL Hemoglobin 14.0 13.5-17.5 g/dL Hematocrit 42.6 41.0-53.0 % Mean Corpuscular Volume 90.3 80.0-100.0 fL Mean Corpuscular Hemoglobin 29.7 28.0-32.0 pg Mean Corpuscular Hemoglobin Concent 32.8 32.0-36.0 g/dL Red Cell Distribution Width 15.1 H 11.8-14.3 % Platelet Count 339 140-450 10^3/uL Mean Platelet Volume 7.8 6.9-10.8 fL Neutrophils (%) (Auto) 70.6 37.0-80.0 % Lymphocytes (%) (Auto) 17.6 10.0-50.0 % Monocytes (%) (Auto) 6.2 0.0-12.0 % Eosinophils (%) (Auto) 4.3 0.0-7.0 % Basophils (%) (Auto) 1.3 0.0-2.0 % Neutrophils # (Auto) 5.7 1.6-8.6 10 ^3/uL Lymphocytes # (Auto) 1.4 0.4-5.4 10 ^3/uL Monocytes # (Auto) 0.5 0-1.3 10 ^3/uL Eosinophils # (Auto) 0.3 0-0.8 10 ^3/uL Basophils # (Auto) 0.1 0-0.2 10 ^3/uL Nucleated Red Blood Cells 0.1 % Sodium Level 139 136-145 mmol/L Potassium Level 4.1 4.4 3.5-5.1 mmol/L Chloride Level 103 98-107 mmol/L Carbon Dioxide Level 33 H 20-31 mmol/L Anion Gap 3 L 5-15 Blood Urea Nitrogen 11 9-23 mg/dL Creatinine 1.00 0.700-1.30 mg/dL Glomerular Filtration Rate Calc 77 >90 mL/min BUN/Creatinine Ratio 11.0 10.0-20.0 Serum Glucose 135 H 74-106 mg/dL Calcium Level 9.0 8.7-10.4 mg/dL Phosphorus Level 2.5 2.4-5.1 mg/dL Magnesium Level 2.0 1.9 1.6-2.6 mg/dL Total Bilirubin 0.5 0.2-1.0 mg/dL Aspartate Amino Transferase (AST) 14 13-40 U/L Alanine Aminotransferase (ALT) 18 7-40 U/L Alkaline Phosphatase 91 46-116 U/L Total Protein 6.1 5.7-8.2 g/dL Albumin 3.3 3.2-4.8 g/dL Blood Gas Specimen Type Arterial Blood Gas Sample Site Left radial Blood Gas Patient Temperature 37.0 Arterial Blood Date Drawn [id number] Arterial Blood pH 7.368 7.350-7.450 Arterial Blood Partial Pressure CO2 55.1 H 35.0-48.0 mmHg Arterial Blood Partial Pressure O2 82.1 L 83.0-108.0 mmHg Arterial Blood HCO3 31.0 H 21.0-28.0 mmol/L Arterial Blood Oxygen Saturation 95.8 94.0-98.0 % Arterial Blood Base Excess 4.1 H -2.0-3.0 mmol/L Arterial Blood Oxyhemoglobin 94.8 94.0-98.0 % Arterial Blood Carboxyhemoglobin 0.6 0.5-1.5 % Arterial Blood Methemoglobin 0.4 0.0-1.5 % Rashaun Test Modified Blood Gas Total Hemoglobin 15.50 13.5-17.5 g/dL Blood Gas Set Respiration Rate 22.0 Blood Gas Modality Vent - ac FiO2 % 90.0 Blood Gas Tidal Volume 550.0 Blood Gas PEEP or CPAP 8.0 Prothrombin Time 10.7 9.3-11.8 sec Prothrombin Time INR 1.01 0.9-1.15 D-Dimer, Quantitative 1.70 H 0.0-0.49 mg/L FEU Ammonia 14 11-32 umol/L B-Type Natriuretic Peptide 109.89 0-100 pg/mL Plasma/Serum Blood Alcohol 3.4 <10 mg/dL Test 02/11/24 10:44 02/11/24 08:30 02/11/24 05:10 02/11/24 03:19 Range/Units Blood Gas Specimen Type Arterial Blood Gas Sample Site Right radial Blood Gas Patient Temperature 37.0 Arterial Blood Date Drawn [id number] Arterial Blood pH 7.287 L 7.350-7.450 Arterial Blood Partial Pressure CO2 63.4 *H 35.0-48.0 mmHg Arterial Blood Partial Pressure O2 80.3 L 83.0-108.0 mmHg Arterial Blood HCO3 29.6 H 21.0-28.0 mmol/L Arterial Blood Oxygen Saturation 94.7 94.0-98.0 % Arterial Blood Base Excess 1.1 -2.0-3.0 mmol/L Arterial Blood Oxyhemoglobin 92.0 L 94.0-98.0 % Arterial Blood Carboxyhemoglobin 2.2 H 0.5-1.5 % Arterial Blood Methemoglobin 0.7 0.0-1.5 % Rashaun Test Modified Blood Gas Total Hemoglobin 15.70 13.5-17.5 g/dL Blood Gas Set Respiration Rate 18.0 Blood Gas Modality Vent - ac FiO2 % 100.0 Blood Gas Tidal Volume 550.0 Blood Gas PEEP or CPAP 5.0 Blood Gas Critical Value Read Back Yes Blood Gas Notified Whom juan pablo Ramirez md Blood Gas Notified Time [id number] Blood Gas Notified By Duncan hannon Urine Color Light-yellow Yellow Urine Clarity Clear Clear Urine pH 6.0 5.0-9.0 Urine Specific [place] 1.012 1.001-1.035 Urine Protein Negative Negative Urine Ketones Negative Negative Urine Blood Negative Negative /uL Urine Nitrite Negative Negative Urine Bilirubin Negative Negative Urine Urobilinogen Normal Negative mg/dL Urine Leukocyte Esterase Negative Negative /uL Urine RBC None seen 0 - 3 /hpf Urine WBC <1 0 - 3 /hpf Urine Squamous Epithelial Cells None seen <5 /hpf Urine Bacteria None seen None Seen /hpf Urine Glucose Normal Normal mg/dL Urine Opiates Screen Neg NEGATIVE Urine Fentanyl Screen Neg NEGATIVE Urine Barbiturates Screen Neg NEGATIVE Urine Phencyclidine Screen Neg NEGATIVE Urine Amphetamines Screen Neg NEGATIVE Urine Benzodiazepines Screen Neg NEGATIVE Urine Cocaine Screen Neg NEGATIVE Urine Cannabinoids Screen Neg NEGATIVE Lactic Acid Level 1.1 0.4-2.0 mmol/L White Blood Count 10.1 4.4-10.8 10^3/uL Red Blood Count 5.03 4.5-5.90 10^6/uL Hemoglobin 15.1 13.5-17.5 g/dL Hematocrit 46.2 41.0-53.0 % Mean Corpuscular Volume 91.8 80.0-100.0 fL Mean Corpuscular Hemoglobin 30.0 28.0-32.0 pg Mean Corpuscular Hemoglobin Concent 32.7 32.0-36.0 g/dL Red Cell Distribution Width 15.0 H 11.8-14.3 % Platelet Count 356 140-450 10^3/uL Mean Platelet Volume 7.4 6.9-10.8 fL Neutrophils (%) (Auto) 75.1 37.0-80.0 % Lymphocytes (%) (Auto) 16.2 10.0-50.0 % Monocytes (%) (Auto) 5.8 0.0-12.0 % Eosinophils (%) (Auto) 2.3 0.0-7.0 % Basophils (%) (Auto) 0.6 0.0-2.0 % Neutrophils # (Auto) 7.6 1.6-8.6 10 ^3/uL Lymphocytes # (Auto) 1.6 0.4-5.4 10 ^3/uL Monocytes # (Auto) 0.6 0-1.3 10 ^3/uL Eosinophils # (Auto) 0.2 0-0.8 10 ^3/uL Basophils # (Auto) 0.1 0-0.2 10 ^3/uL Nucleated Red Blood Cells 0.1 % Test 02/11/24 02:19 Range/Units Sodium Level 137 136-145 mmol/L Potassium Level 4.6 3.5-5.1 mmol/L Chloride Level 104 98-107 mmol/L Carbon Dioxide Level 29 20-31 mmol/L Anion Gap 4 L 5-15 Blood Urea Nitrogen 9 9-23 mg/dL Creatinine 1.21 0.700-1.30 mg/dL Glomerular Filtration Rate Calc 61 >90 mL/min BUN/Creatinine Ratio 7.4 L 10.0-20.0 Serum Glucose 167 H 74-106 mg/dL Hemoglobin A1c 7.8 H <5.7 % A1C Calcium Level 9.3 8.7-10.4 mg/dL Troponin I High Sensitivity 5 </=54 ng/L Triglycerides Level 190 H < 150 mg/dL Cholesterol Level 171 < 200 mg/dL LDL Cholesterol 109 H < 100 mg/dL HDL Cholesterol 42 40-59 mg/dL Thyroid Stimulating Hormone (TSH) 4.29 0.55-4.78 uIU/mL Microbiology Date/Time Source Procedure Growth Status 02/14/24 12:04 Urine - [place] Urine Culture - Final Complete 02/12/24 13:30 Blood Blood Culture - Final NO GROWTH AFTER 5 DAYS OF INCUBATION. Complete 02/11/24 13:06 Nose MRSA Screen - Final Complete Assessment Acute kidney injury due to prerenal + hypotension + vancotoxicity Acute CVA no previous ckd acute respiratory failure with ARDS septic shock due to PNA bradycardia hypervolemic calculate fena rec diuretic X1 pressors to keep MAP > 65 will consider dopamine tomorrow to enhance diuretics report I/O hold vanco until level is under 20 Plan discussed with: Other LETY LAM MD Feb 20, 2024 18:55
[2024-02-20 19:05] LABS: Blood Urea Nitrogen 76 mg/dL (9-23)
[2024-02-20 19:32] LABS: Creatinine, Urine 85.51 mg/dL (30.0-125.0)
[2024-02-20] MEDS: BUMETANIDE 2.5mg/10ml (0.25 mg/ml) INJ IV ONE (20:10)
[2024-02-21] VITALS (100 sets, daily range): BP systolic 127–203; BP diastolic 42–76; PULSE 45–56; RESP 16–30; TEMP 97.9–98.7; O2SAT 89–98
[2024-02-21 04:33] LABS: Basophils # (auto) 0 10 ^3/uL (0-0.2); Basophils % (auto) 0.1 % (0.0-2.0); Eosinophils # (auto) 0 10 ^3/uL (0-0.8); Eosinophils % (auto) 0.1 % (0.0-7.0); Hematocrit 37.3 % (41.0-53.0); Hemoglobin 12.5 g/dL (13.5-17.5); Mean Corpuscular Hemoglobin 29.8 pg (28.0-32.0); Mean Corpuscular Hgb Conc. 33.5 g/dL (32.0-36.0); Monocytes # (auto) 0.9 10 ^3/uL (0-1.3); Monocytes % (auto) 6.1 % (0.0-12.0); Neutrophils % (auto) 86.7 % (37.0-80.0); Platelet Count (auto) 292 10^3/uL (140-450); Red Blood Cells 4.19 10^6/uL (4.5-5.90); Red Cell Distribution Width 14.4 % (11.8-14.3); White Blood Cell 13.9 10^3/uL (4.4-10.8)
[2024-02-21 04:53] LABS: Anion Gap 12 (5-15); Carbon Dioxide 24 mmol/L (20-31); Chloride 102 mmol/L (98-107); Sodium 138 mmol/L (136-145)
[2024-02-21 04:54] LABS: Calcium 8.9 mg/dL (8.7-10.4)
[2024-02-21 04:59] LABS: BUN/Creatinine Ratio 23.5 (10.0-20.0); Glucose 203 mg/dL (74-106)
[2024-02-21 05:04] LABS: Blood Urea Nitrogen 80 mg/dL (9-23)
--- NOTE | 2024-02-21 06:29 | DVH ---
CHEST RADIOGRAPH Indication:INTUBATED Technique: Single frontal view of the chest was obtained COMPARISON: XY CHEST XRAY 1 VIEW on DOS: 02/20/24, XY CHEST XRAY 1 VIEW on DOS: 02/19/24, XY CHEST PO RTABLE on DOS: 02/18/24, XY CHEST XRAY 1 VIEW on DOS: 02/20/24 FINDINGS: Lines and Tubes: Endotracheal tube, enteric catheter and right central venous catheter in satisfactor y position. Lungs: Congestion Pleura: No effusion. No pneumothorax. Cardiomediastinal contours: Unremarkable Bones: Unremarkable IMPRESSION: Lines and tubes in satisfactory position. No significant interval change.
[2024-02-21 07:14] LABS: Base Excess -2.8 mmol/L (-2.0-3.0)
--- NOTE | 2024-02-21 12:56 | DVHPN2 ---
Progress Note - Dictate Date Seen: Feb 21, 2024 Medical Necessity Reason Pt with a Central, PICC or Fol: Yes The following are medically ne: Central Line, Roblero Catheter Reason for roblero catheter: Strict I&O vital signs Vital Sign Date Time Temp Pulse Resp B/P (MAP) Pulse Ox O2 Delivery O2 Flow Rate FiO2 02/21/24 12:10 47 27 140/54 (82) 92 70 02/21/24 10:00 Mechanical Ventilator+ 02/21/24 06:01 97.9 97.9 Total Intake and Output 02/20/24 02/20/24 02/21/24 15:00 23:00 07:00 Intake Total 310.875 ml 499.942 ml 400.438 ml Output Total 400 ml 675 ml Balance 310.875 ml 99.942 ml -274.562 ml medications Current Medications Medications Dose Ordered Sig/Theodora Route Start Time Stop Time Status Last Admin Dose Admin Midazolam HCl 50 ml @ 1 mls/hr Q24H IV 02/11/24 09:15 02/20/24 17:30 1 MLS/HR Sodium Chloride 10 ml Q8HR IV 02/11/24 14:00 02/21/24 05:25 10 ML Fentanyl Citrate 250 ml @ 2.5 mls/hr Q24H IV 02/11/24 10:15 02/21/24 05:24 20 MLS/HR Norepinephrine Bitartrate 250 ml @ 3.75 mls/hr Q24H IV 02/11/24 18:15 02/19/24 09:54 3.75 MLS/HR Atorvastatin Calcium 40 mg HS PO 02/12/24 22:00 02/20/24 22:39 40 MG Pantoprazole Sodium 40 mg DAILY IV 02/13/24 10:00 02/21/24 09:42 40 MG Lactulose 30 ml Q8HR PO 02/13/24 12:00 02/21/24 05:25 30 ML Enteral Nutritional Formula 1,000 ml 45ML/HR GT 02/16/24 12:45 02/19/24 14:43 1,000 ML Gentamicin Sulfate 1 drop Q4HR EACHEYE 02/16/24 18:00 02/21/24 11:21 1 DROP Aspirin 81 mg DAILY PO 02/17/24 10:00 02/21/24 09:42 81 MG Hydrocortisone Sodium Succinate 100 mg Q12HR IV 02/18/24 22:00 02/21/24 09:42 100 MG Acetylcysteine 200 mg Q8HR NEB 02/18/24 22:00 02/21/24 06:14 200 MG Albuterol 2.5 mg Q8HR NEB 02/18/24 22:00 02/21/24 06:14 2.5 MG Vancomycin HCl 0 ml @ 0 mls/hr UD IV 02/18/24 17:45 Diagnostic Test (Pha) 1 strip Q6HR 02/20/24 12:00 02/21/24 11:17 1 STRIP Insulin Human Regular Q6HR SC 02/20/24 12:00 02/21/24 11:18 3 UNITS Dextrose 50 ml UD PRN IV 02/20/24 08:45 Heparin Sodium (Porcine) 5,000 units Q12HR SC 02/20/24 10:00 02/21/24 09:49 5,000 UNITS Cefepime/Dextrose 50 ml @ 12.5 mls/hr Q24H IV 02/22/24 08:00 objective obese male intubated b/l bruising anasarca osbaldo laboratory and microbiology Laboratory Tests 02/21/24 03:26 Test 02/21/24 03:26 Range/Units Serum Glucose 203 H 74-106 mg/dL Assessment/Plan Acute kidney injury due to prerenal + hypotension + vancotoxicity Acute CVA no previous ckd acute respiratory failure with ARDS septic shock due to PNA bradycardia hypervolemic Continue diuretics daily Taper the steroids as it is contributing to azotemia He is dopamine for blood pressure medication as a floor dose alternative given patient also has low heart rate pressors to keep MAP > 65 I/O hold vanco until level is under 20 Dietary Evaluation Review Comments: 1) Recommend CCHO-60, Cardiac 2gNa LoFat LoCholesterol diet when medically feasible. 2) If GI accessible but PO feeding is not an option, consider glucerna 1.2 @45ml/hr. In 24 hrs, pt will be receiving 65g protein and 1296 kcal.Adj and increase infusion rate as tolerated. 3) If NPO > 7 days and GI is not accesible, consider TPN to support 75% of her energy and protein needs. Expected Outcomes/Goals: Gradual weight loss, improved glucose Plan discussed with: Other Critical Care Time(min): 35 OLADELE,LETY M MD Feb 21, 2024 12:56
[2024-02-21] MEDS ORDERED: FUROSEMIDE 100 MG/10ML VIAL IV SCH (13:00)
[2024-02-21] MEDS: FUROSEMIDE INJECTION 100 MG in SODIUM CHL 0.9% 100 ML IV SCH (13:15)
[2024-02-21] MEDS: DOPamine 1600MCG/ML D5W 250 ML IV SCH (13:45)
--- NOTE | 2024-02-21 14:20 | DVH ---
Exam: XY KUB ABDOMEN SINGLE VIEW Indication: rule out obstruction Comparison: XY KUB ABDOMEN SINGLE VIEW on DOS: 02/11/24 Technique: 3 radiographic views of the abdomen. Findings: Enteric catheter tube tip in the stomach. Nonspecific bowel-gas pattern. There is no definite evidence for pneumoperitoneum. No abnormal calcifications noted. Impression: Limited examination secondary to patient body habitus and under penetration. Nonspecific bowel-gas pattern.
--- NOTE | 2024-02-21 21:24 | DVHPN2 ---
Subjective chart reviwed/pt intubated Reviewed: Care Plan Changes from previous H/P or p: No Changes Respiratory: Shortness of breath Objective Vitals Vital Signs Date Time Temp Pulse Resp B/P (MAP) Pulse Ox O2 Delivery O2 Flow Rate FiO2 02/21/24 20:16 54 26 146/59 (88) 94 70 02/21/24 20:00 Mechanical Ventilator+ 02/21/24 15:45 98.7 98.7 Intake/Output Intake and Output 02/21/24 07:00 Intake Total 1211.255 ml Output Total 1075 ml Balance 136.255 ml Intake Oral 140 ml IV Total 707.255 ml Tube Feeding 364 ml Output Urine Total 1075 ml Stool Total 0 ml General Appearance: Other (intubated and sedated) HEENT: PERRLA Lungs: Clear to auscultation Cardiovascular: Regular rate, Normal S1, Normal S2 Abdomen: Normal bowel sounds, Soft, No tenderness, No hepatospenomegaly, Other (obese) Extremities: No edema Neuro: Other (sedated // intubated) Medications Current Medications Medications Dose Ordered Sig/Theodora Route Start Time Stop Time Status Last Admin Dose Admin Midazolam HCl 50 ml @ 1 mls/hr Q24H IV 02/11/24 09:15 02/20/24 17:30 1 MLS/HR Sodium Chloride 10 ml Q8HR IV 02/11/24 14:00 02/21/24 13:50 10 ML Fentanyl Citrate 250 ml @ 2.5 mls/hr Q24H IV 02/11/24 10:15 02/21/24 17:58 20 MLS/HR Norepinephrine Bitartrate 250 ml @ 3.75 mls/hr Q24H IV 02/11/24 18:15 02/19/24 09:54 3.75 MLS/HR Atorvastatin Calcium 40 mg HS PO 02/12/24 22:00 02/20/24 22:39 40 MG Pantoprazole Sodium 40 mg DAILY IV 02/13/24 10:00 02/21/24 09:42 40 MG Lactulose 30 ml Q8HR PO 02/13/24 12:00 02/21/24 14:16 30 ML Enteral Nutritional Formula 1,000 ml 45ML/HR GT 02/16/24 12:45 02/19/24 14:43 1,000 ML Gentamicin Sulfate 1 drop Q4HR EACHEYE 02/16/24 18:00 02/21/24 17:29 1 DROP Aspirin 81 mg DAILY PO 02/17/24 10:00 02/21/24 09:42 81 MG Hydrocortisone Sodium Succinate 100 mg Q12HR IV 02/18/24 22:00 02/21/24 09:42 100 MG Acetylcysteine 200 mg Q8HR NEB 02/18/24 22:00 02/21/24 14:29 200 MG Albuterol 2.5 mg Q8HR NEB 02/18/24 22:00 02/21/24 14:28 2.5 MG Vancomycin HCl 0 ml @ 0 mls/hr UD IV 02/18/24 17:45 Diagnostic Test (Pha) 1 strip Q6HR 02/20/24 12:00 02/21/24 17:30 1 STRIP Insulin Human Regular Q6HR SC 02/20/24 12:00 02/21/24 17:30 4 UNITS Dextrose 50 ml UD PRN IV 02/20/24 08:45 Heparin Sodium (Porcine) 5,000 units Q12HR SC 02/20/24 10:00 02/21/24 09:49 5,000 UNITS Cefepime/Dextrose 50 ml @ 12.5 mls/hr Q24H IV 02/22/24 08:00 Dopamine HCl/ Dextrose 250 ml @ 11.625 mls/ hr [id number] IV 02/21/24 13:00 02/21/24 13:45 11.625 MLS/HR Furosemide 100 mg/ Sodium Chloride 110 ml @ 11 mls/hr Q10H IV 02/21/24 13:15 02/21/24 13:15 11 MLS/HR Propofol 100 ml @ 3.72 mls/hr Q24H IV 02/21/24 21:00 Laboratory Results Laboratory Tests 02/21/24 03:26 Chemistry Test 02/21/24 03:26 Calcium Level 8.9 mg/dL (8.7-10.4) Urinalysis Test 02/20/24 14:57 Urine Color Brown (Yellow) H Urine Clarity Ex.turbid (Clear) Urine pH 5.5 (5.0-9.0) Urine Specific [place] 1.014 (1.001-1.035) Urine Protein 2+ (Negative) H Urine Ketones Negative (Negative) Urine Blood 3+ /uL (Negative) H Urine Nitrite Negative (Negative) Urine Bilirubin Negative (Negative) Urine Urobilinogen Normal mg/dL (Negative) Urine Leukocyte Esterase 1+ /uL (Negative) Urine RBC 124 /hpf (0 - 3) Urine WBC 107 /hpf (0 - 3) Urine Squamous Epithelial Cells Few /hpf (<5) Urine Bacteria Few /hpf (None Seen) H Urine Mucus Few (None Seen) Urine Creatinine 85.51 mg/dL (30.0-125.0) Urine Sodium 15 mmol/L (40-220) L Urine Glucose Normal mg/dL (Normal) Blood Gas Results Test 02/21/24 06:59 Arterial Blood pH 7.400 (7.350-7.450) FiO2 % 70.0 Microbiology Microbiology Date/Time Source Procedure Growth Status 02/19/24 10:50 Bronchial Washings Gram Stain - Final Resulted 02/19/24 10:50 Bronchial Washings Respiratory Culture - Preliminary Resulted 02/14/24 12:04 Urine - [place] Urine Culture - Final Complete 02/12/24 13:30 Blood Blood Culture - Final NO GROWTH AFTER 5 DAYS OF INCUBATION. 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
[2024-02-21] MEDS: PROPOFOL 100 ML IV SCH (21:38)
--- NOTE | 2024-02-21 21:44 | DVHPN2 ---
Progress Note - Dictate Date Seen: Feb 21, 2024 Medical Necessity Reason Pt with a Central, PICC or Fol: Yes The following are medically ne: Central Line, Roblero Catheter Reason for roblero catheter: Strict I&O Subjective Patient seen and examined at bedside. Sedated, intubated on mechanical ventilator. Overnight events reviewed. vital signs Vital Sign Date Time Temp Pulse Resp B/P (MAP) Pulse Ox O2 Delivery O2 Flow Rate FiO2 02/21/24 20:16 54 26 146/59 (88) 94 70 02/21/24 20:00 Mechanical Ventilator+ 02/21/24 15:45 98.7 98.7 Total Intake and Output 02/20/24 02/20/24 02/21/24 15:00 23:00 07:00 Intake Total 310.875 ml 499.942 ml 400.438 ml Output Total 400 ml 675 ml Balance 310.875 ml 99.942 ml -274.562 ml medications Current Medications Medications Dose Ordered Sig/Theodora Route Start Time Stop Time Status Last Admin Dose Admin Midazolam HCl 50 ml @ 1 mls/hr Q24H IV 02/11/24 09:15 02/20/24 17:30 1 MLS/HR Sodium Chloride 10 ml Q8HR IV 02/11/24 14:00 02/21/24 13:50 10 ML Fentanyl Citrate 250 ml @ 2.5 mls/hr Q24H IV 02/11/24 10:15 02/21/24 17:58 20 MLS/HR Norepinephrine Bitartrate 250 ml @ 3.75 mls/hr Q24H IV 02/11/24 18:15 02/19/24 09:54 3.75 MLS/HR Atorvastatin Calcium 40 mg HS PO 02/12/24 22:00 02/20/24 22:39 40 MG Pantoprazole Sodium 40 mg DAILY IV 02/13/24 10:00 02/21/24 09:42 40 MG Lactulose 30 ml Q8HR PO 02/13/24 12:00 02/21/24 14:16 30 ML Enteral Nutritional Formula 1,000 ml 45ML/HR GT 02/16/24 12:45 02/19/24 14:43 1,000 ML Gentamicin Sulfate 1 drop Q4HR EACHEYE 02/16/24 18:00 02/21/24 17:29 1 DROP Aspirin 81 mg DAILY PO 02/17/24 10:00 02/21/24 09:42 81 MG Hydrocortisone Sodium Succinate 100 mg Q12HR IV 02/18/24 22:00 02/21/24 09:42 100 MG Acetylcysteine 200 mg Q8HR NEB 02/18/24 22:00 02/21/24 14:29 200 MG Albuterol 2.5 mg Q8HR NEB 02/18/24 22:00 02/21/24 14:28 2.5 MG Vancomycin HCl 0 ml @ 0 mls/hr UD IV 02/18/24 17:45 Diagnostic Test (Pha) 1 strip Q6HR 02/20/24 12:00 02/21/24 17:30 1 STRIP Insulin Human Regular Q6HR SC 02/20/24 12:00 02/21/24 17:30 4 UNITS Dextrose 50 ml UD PRN IV 02/20/24 08:45 Heparin Sodium (Porcine) 5,000 units Q12HR SC 02/20/24 10:00 02/21/24 09:49 5,000 UNITS Cefepime/Dextrose 50 ml @ 12.5 mls/hr Q24H IV 02/22/24 08:00 Dopamine HCl/ Dextrose 250 ml @ 11.625 mls/ hr [id number] IV 02/21/24 13:00 02/21/24 13:45 11.625 MLS/HR Furosemide 100 mg/ Sodium Chloride 110 ml @ 11 mls/hr Q10H IV 02/21/24 13:15 02/21/24 13:15 11 MLS/HR Propofol 100 ml @ 3.72 mls/hr Q24H IV 02/21/24 21:00 objective Gen.: Patient lying in bed in medical ICU. Sedated, intubated on mechanical ventilator. Head: Normocephalic, atraumatic. Eyes: PERRLA. Ears: Normal external anatomy. Throat: Endotracheal tube and orogastric tube in place. Neck: Supple, trachea midline. Chest: Transmitted breath sounds bilaterally. Decreased air entry bilaterally. No wheezing. Bibasilar crackles. Cardiovascular: Positive S1, positive S2. Regular rate and rhythm. Abdomen: Positive bowel sounds in all 4 quadrants. Soft, nontender, nondistended. : Roblero in place. Normal external genitalia. Rectal: Deferred. Skin: Warm, dry. Intact. Extremities: 2+ radial pulses bilaterally. No lower extremity edema. Neuro: Sedated. laboratory and microbiology Laboratory Tests 02/21/24 03:26 Test 02/21/24 03:26 Range/Units Serum Glucose 203 H 74-106 mg/dL Assessment/Plan Impression: Acute hypoxic respiratory failure secondary to pneumonia and CHF exacerbation Acute on chronic hypercarbic respiratory failure Acute respiratory distress syndrome On mechanical ventilator Pneumonia, likely Gram-negative CHF exacerbation Pulmonary edema Obesity with a BMI of 32.6 Acute stroke Events: Remains on vent support On assist control with a respiratory rate of 26, tidal volume 550, PEEP of 5, FiO2 at 70%. Increased ET tube secretions noted We will plan for bronchoscopy. Sedated on Fentanyl drip. Continue antibiotics - cefepime Taper sedation as tolerated. Daily CPAP Diurese w/ Lasix drip Monitor renal function Tube feeds for nutritional support Labs and imaging reviewed. Rest of plan as noted below. Plan: s/p intubation on mechanical ventilator CT head notable for hypodense pretty 10 x 8 mm in size in the simon with the left side from strenuous for acute infarct. Chronic periventricular ischemic changes. Cerebral and cerebellar atrophy likely age-related. Recommend neurology evaluation. CXR image and report reviewed. Devices in place. Cardiomegaly. Small left pleural effusion. Diffuse interstitial opacities likely pulmonary edema. Initial ABG was notable for acute on chronic hypercarbic respiratory failure, PaCO2 63.4 mmHg Repeat ABG reviewed. Compensated. Poor PF ratio. S/p bronchoscopy with right middle lobe bronchoalveolar lavage on 02/15/24. See procedure note for details. Vent settings; On assist control with a respiratory rate of 26, tidal volume 550, PEEP of 5, FiO2 at 70%. Titrate FIO2 to keep O2 saturation above 92%. VAP bundle Daily ABG and CXR while intubated. Sedate for ventilator synchrony Pressors as necessary for hemodynamic support. Titrate to keep MAP above 65 mmHg/SBP above 90 mmHg. Continue antibiotics. F/u cultures. Diurese to euvolemia. Monitor ins/outs. On Lasix BID. Monitor renal function due to acute kidney injury. Monitor electrolytes. Supplement as necessary. Nutritional support. Accucheks, ISS. GI/DVT prophylaxis. Condition: Critical Prognosis: Poor given multiple comorbidities. Rest of plan per hospitalist and other consultants. A total of 35 minutes of critical care time was spent reviewing the patient record, examining the patient, making a diagnostic and therapeutic plan, discussing this plan with the medical personnel, following up on diagnostic studies and following the patient for clinical stability excluding any and all procedures. At least 50% of this time was spent in direct, [id number] contact. Thank you GIORGI Huffman for allowing me to participate in this patient's care. Further recommendations will depend on patient's clinical course. Please do not hesitate to contact me if you have any questions or concerns. This medical document was created using an electronic medical record system with [employer] dictation system. Although this document has been carefully reviewed, there may still be some phonetic and typographical errors. These areas are purely typographical due to imperfections of the software programs, and do not reflect any compromise in the patient's medical care. Dietary Evaluation Review Comments: 1) Recommend CCHO-60, Cardiac 2gNa LoFat LoCholesterol diet when medically feasible. 2) If GI accessible but PO feeding is not an option, consider glucerna 1.2 @45ml/hr. In 24 hrs, pt will be receiving 65g protein and 1296 kcal.Adj and increase infusion rate as tolerated. 3) If NPO > 7 days and GI is not accesible, consider TPN to support 75% of her energy and protein needs. Expected Outcomes/Goals: Gradual weight loss, improved glucose Plan discussed with: Other (JESUS Amato) Critical Care Time(min): 35 ALEXANDER SCHWAB MD Feb 21, 2024 21:44
[2024-02-22] VITALS (104 sets, daily range): BP systolic 109–144; BP diastolic 38–62; PULSE 40–54; RESP 8–31; TEMP 97.7–98.6; O2SAT 89–98
[2024-02-22 03:32] LABS: Basophils # (auto) 0.1 10 ^3/uL (0-0.2); Basophils % (auto) 0.4 % (0.0-2.0); Eosinophils # (auto) 0 10 ^3/uL (0-0.8); Eosinophils % (auto) 0.3 % (0.0-7.0); Hematocrit 38.6 % (41.0-53.0); Hemoglobin 12.9 g/dL (13.5-17.5); Lymphocytes # (auto) 0.8 10 ^3/uL (0.4-5.4); Lymphocytes % (auto) 5.5 % (10.0-50.0); Mean Corpuscular Hemoglobin 29.5 pg (28.0-32.0); Mean Corpuscular Hgb Conc. 33.3 g/dL (32.0-36.0); Mean Corpuscular Volume 88.4 fL (80.0-100.0); Monocytes # (auto) 1.1 10 ^3/uL (0-1.3); Monocytes % (auto) 7.1 % (0.0-12.0); Neutrophils # (auto) 13.3 10 ^3/uL (1.6-8.6); Neutrophils % (auto) 86.7 % (37.0-80.0); Platelet Count (auto) 332 10^3/uL (140-450); Red Blood Cells 4.36 10^6/uL (4.5-5.90); Red Cell Distribution Width 15.1 % (11.8-14.3); White Blood Cell 15.3 10^3/uL (4.4-10.8)
[2024-02-22 03:39] LABS: Chloride 103 mmol/L (98-107); Potassium 3.8 mmol/L (3.5-5.1); Sodium 140 mmol/L (136-145)
[2024-02-22 03:40] LABS: Anion Gap 14 (5-15); Carbon Dioxide 23 mmol/L (20-31)
[2024-02-22 03:45] LABS: BUN/Creatinine Ratio 24.2 (10.0-20.0); Glucose 193 mg/dL (74-106)
[2024-02-22 04:15] LABS: Blood Urea Nitrogen 99 mg/dL (9-23)
--- NOTE | 2024-02-22 05:45 | DVH ---
CHEST RADIOGRAPH Indication:INTUBATED Technique: Single frontal view of the chest was obtained COMPARISON: XY CHEST PORTABLE on DOS: 02/21/24, XY CHEST XRAY 1 VIEW on DOS: 02/20/24, XY CHEST XRAY 1 VIEW on DOS: 02/19/24 FINDINGS: Lines and Tubes: Endotracheal tube, enteric catheter and right central venous catheter in satisfactor y position. Lungs: Congestion Pleura: No effusion. No pneumothorax. Cardiomediastinal contours: Unremarkable Bones: Unremarkable IMPRESSION: Lines and tubes in satisfactory position. No significant interval change.
[2024-02-22] MEDS: CEFEPIME 2GM/50ML 50 ML IV SCH (07:48)
--- NOTE | 2024-02-22 10:58 | DVHPN2 ---
Subjective chart reviwed/pt intubated/no events thru the night pulmonary is planning on repeat bronch?? Reviewed: Care Plan Changes from previous H/P or p: No Changes Respiratory: Shortness of breath Objective Vitals Vital Signs Date Time Temp Pulse Resp B/P (MAP) Pulse Ox O2 Delivery O2 Flow Rate FiO2 02/22/24 10:09 48 26 128/49 (75) 95 60 02/22/24 08:00 Mechanical Ventilator+ 02/22/24 08:00 98.2 98.2 Intake/Output Intake and Output 02/22/24 07:00 Intake Total 1306.225 ml Output Total 1300 ml Balance 6.225 ml Intake Oral 110 ml IV Total 961.225 ml Tube Feeding 235 ml Output Urine Total 1300 ml Stool Total 0 ml General Appearance: Other (intubated and sedated) HEENT: PERRLA, Other (small pupils no reaction to light) Lungs: Clear to auscultation Cardiovascular: Regular rate, Normal S1, Normal S2 Abdomen: Normal bowel sounds, Soft, No tenderness, No hepatospenomegaly, Other (obese) Extremities: No edema Neuro: Other (sedated // intubated//no response top noxious stimulii/per nursing at sedation breaks has cough and gag reflex) Medications Current Medications Medications Dose Ordered Sig/Theodora Route Start Time Stop Time Status Last Admin Dose Admin Midazolam HCl 50 ml @ 1 mls/hr Q24H IV 02/11/24 09:15 02/20/24 17:30 1 MLS/HR Sodium Chloride 10 ml Q8HR IV 02/11/24 14:00 02/22/24 06:01 10 ML Fentanyl Citrate 250 ml @ 2.5 mls/hr Q24H IV 02/11/24 10:15 02/22/24 06:11 20 MLS/HR Norepinephrine Bitartrate 250 ml @ 3.75 mls/hr Q24H IV 02/11/24 18:15 02/19/24 09:54 3.75 MLS/HR Atorvastatin Calcium 40 mg HS PO 02/12/24 22:00 02/21/24 21:39 40 MG Pantoprazole Sodium 40 mg DAILY IV 02/13/24 10:00 02/21/24 09:42 40 MG Lactulose 30 ml Q8HR PO 02/13/24 12:00 02/22/24 06:02 30 ML Enteral Nutritional Formula 1,000 ml 45ML/HR GT 02/16/24 12:45 02/19/24 14:43 1,000 ML Gentamicin Sulfate 1 drop Q4HR EACHEYE 02/16/24 18:00 02/22/24 06:01 1 DROP Aspirin 81 mg DAILY PO 02/17/24 10:00 02/21/24 09:42 81 MG Hydrocortisone Sodium Succinate 100 mg Q12HR IV 02/18/24 22:00 02/21/24 21:39 100 MG Acetylcysteine 200 mg Q8HR NEB 02/18/24 22:00 02/22/24 06:26 200 MG Albuterol 2.5 mg Q8HR NEB 02/18/24 22:00 02/22/24 06:25 2.5 MG Vancomycin HCl 0 ml @ 0 mls/hr UD IV 02/18/24 17:45 Diagnostic Test (Pha) 1 strip Q6HR 02/20/24 12:00 02/22/24 06:01 1 STRIP Insulin Human Regular Q6HR SC 02/20/24 12:00 02/22/24 06:09 3 UNITS Dextrose 50 ml UD PRN IV 02/20/24 08:45 Heparin Sodium (Porcine) 5,000 units Q12HR SC 02/20/24 10:00 02/21/24 21:39 5,000 UNITS Cefepime/Dextrose 50 ml @ 12.5 mls/hr Q24H IV 02/22/24 08:00 02/22/24 07:48 12.5 MLS/HR Dopamine HCl/ Dextrose 250 ml @ 11.625 mls/ hr [id number] IV 02/21/24 13:00 02/21/24 13:45 11.625 MLS/HR Furosemide 100 mg/ Sodium Chloride 110 ml @ 11 mls/hr Q10H IV 02/21/24 13:15 02/22/24 08:45 11 MLS/HR Propofol 100 ml @ 3.72 mls/hr Q24H IV 02/21/24 21:00 02/22/24 08:51 37.2 MLS/HR Laboratory Results Laboratory Tests 02/22/24 03:05 Chemistry Test 02/22/24 03:05 Calcium Level 9.0 mg/dL (8.7-10.4) Urinalysis Test 02/20/24 14:57 Urine Color Brown (Yellow) H Urine Clarity Ex.turbid (Clear) Urine pH 5.5 (5.0-9.0) Urine Specific [place] 1.014 (1.001-1.035) Urine Protein 2+ (Negative) H Urine Ketones Negative (Negative) Urine Blood 3+ /uL (Negative) H Urine Nitrite Negative (Negative) Urine Bilirubin Negative (Negative) Urine Urobilinogen Normal mg/dL (Negative) Urine Leukocyte Esterase 1+ /uL (Negative) Urine RBC 124 /hpf (0 - 3) Urine WBC 107 /hpf (0 - 3) Urine Squamous Epithelial Cells Few /hpf (<5) Urine Bacteria Few /hpf (None Seen) H Urine Mucus Few (None Seen) Urine Creatinine 85.51 mg/dL (30.0-125.0) Urine Sodium 15 mmol/L (40-220) L Urine Glucose Normal mg/dL (Normal) Blood Gas Results Test 02/22/24 06:42 Arterial Blood pH 7.349 (7.350-7.450) FiO2 % 70.0 Microbiology Microbiology Date/Time Source Procedure Growth Status 02/19/24 10:50 Bronchial Washings Gram Stain - Final Complete 02/19/24 10:50 Respiratory Culture - Final Methicillin Resistant S.aureus Complete 02/14/24 12:04 Urine - [place] Urine Culture - Final Complete 02/12/24 13:30 Blood Blood Culture - Final NO GROWTH AFTER 5 DAYS OF INCUBATION. 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
--- NOTE | 2024-02-22 18:22 | DVHPN2 ---
Progress Note - Dictate Date Seen: Feb 22, 2024 Medical Necessity Reason Pt with a Central, PICC or Fol: Yes The following are medically ne: Central Line, Roblero Catheter Reason for roblero catheter: Strict I&O Subjective Continues to have significant pulmonary congestion Chest x-ray reviewed Patient desaturates with slight movement Patient is diuresing urine output is noted vital signs Vital Sign Date Time Temp Pulse Resp B/P (MAP) Pulse Ox O2 Delivery O2 Flow Rate FiO2 02/22/24 16:00 47 02/22/24 16:00 26 90 Mechanical Ventilator+ 70 70 02/22/24 15:39 131/54 (79) 02/22/24 12:00 97.7 97.7 Total Intake and Output 02/21/24 02/21/24 02/22/24 15:00 23:00 07:00 Intake Total 198.625 ml 330 ml 777.6 ml Output Total 400 ml 900 ml Balance 198.625 ml -70 ml -122.4 ml medications Current Medications Medications Dose Ordered Sig/Theodora Route Start Time Stop Time Status Last Admin Dose Admin Midazolam HCl 50 ml @ 1 mls/hr Q24H IV 02/11/24 09:15 02/20/24 17:30 1 MLS/HR Sodium Chloride 10 ml Q8HR IV 02/11/24 14:00 02/22/24 14:25 10 ML Fentanyl Citrate 250 ml @ 2.5 mls/hr Q24H IV 02/11/24 10:15 02/22/24 17:36 20 MLS/HR Norepinephrine Bitartrate 250 ml @ 3.75 mls/hr Q24H IV 02/11/24 18:15 02/19/24 09:54 3.75 MLS/HR Atorvastatin Calcium 40 mg HS PO 02/12/24 22:00 02/21/24 21:39 40 MG Pantoprazole Sodium 40 mg DAILY IV 02/13/24 10:00 02/22/24 10:56 40 MG Lactulose 30 ml Q8HR PO 02/13/24 12:00 02/22/24 14:25 30 ML Enteral Nutritional Formula 1,000 ml 45ML/HR GT 02/16/24 12:45 02/19/24 14:43 1,000 ML Gentamicin Sulfate 1 drop Q4HR EACHEYE 02/16/24 18:00 02/22/24 17:54 1 DROP Aspirin 81 mg DAILY PO 02/17/24 10:00 02/22/24 10:56 81 MG Hydrocortisone Sodium Succinate 100 mg Q12HR IV 02/18/24 22:00 02/22/24 10:56 100 MG Acetylcysteine 200 mg Q8HR NEB 02/18/24 22:00 02/22/24 13:59 200 MG Albuterol 2.5 mg Q8HR NEB 02/18/24 22:00 02/22/24 13:59 2.5 MG Vancomycin HCl 0 ml @ 0 mls/hr UD IV 02/18/24 17:45 Diagnostic Test (Pha) 1 strip Q6HR 02/20/24 12:00 02/22/24 17:54 1 STRIP Insulin Human Regular Q6HR SC 02/20/24 12:00 02/22/24 18:02 3 UNITS Dextrose 50 ml UD PRN IV 02/20/24 08:45 Heparin Sodium (Porcine) 5,000 units Q12HR SC 02/20/24 10:00 02/22/24 11:00 5,000 UNITS Cefepime/Dextrose 50 ml @ 12.5 mls/hr Q24H IV 02/22/24 08:00 02/22/24 07:48 12.5 MLS/HR Dopamine HCl/ Dextrose 250 ml @ 11.625 mls/ hr [id number] IV 02/21/24 13:00 02/21/24 13:45 11.625 MLS/HR Furosemide 100 mg/ Sodium Chloride 110 ml @ 11 mls/hr Q10H IV 02/21/24 13:15 02/22/24 08:45 11 MLS/HR Propofol 100 ml @ 3.72 mls/hr Q24H IV 02/21/24 21:00 02/22/24 12:39 37.2 MLS/HR objective obese male intubated b/l bruising anasarca osbaldo laboratory and microbiology Laboratory Tests 02/22/24 03:05 Test 02/22/24 03:05 Range/Units Serum Glucose 193 H 74-106 mg/dL Assessment/Plan Acute kidney injury due to prerenal + hypotension + vancotoxicity Acute CVA no previous ckd acute respiratory failure with ARDS septic shock due to PNA bradycardia hypervolemic Continue diuretics daily Taper the steroids as it is contributing to azotemia He is dopamine for blood pressure medication as a floor dose alternative given patient also has low heart rate pressors to keep MAP > 65 I/O hold vanco until level is under 20 Critically ill with guarded prognosis Given worsening renal function patient requires daily assessment for possible renal replacement therapy Dietary Evaluation Review Comments: 1) Recommend CCHO-60, Cardiac 2gNa LoFat LoCholesterol diet when medically feasible. 2) If GI accessible but PO feeding is not an option, consider glucerna 1.2 @45ml/hr. In 24 hrs, pt will be receiving 65g protein and 1296 kcal.Adj and increase infusion rate as tolerated. 3) If NPO > 7 days and GI is not accesible, consider TPN to support 75% of her energy and protein needs. Expected Outcomes/Goals: Gradual weight loss, improved glucose Plan discussed with: Other Critical Care Time(min): 32 LETY LAM MD Feb 22, 2024 18:22
--- NOTE | 2024-02-22 21:24 | DVHPN2 ---
Progress Note - Dictate Date Seen: Feb 22, 2024 Medical Necessity Reason Pt with a Central, PICC or Fol: Yes The following are medically ne: Central Line, Roblero Catheter Reason for roblero catheter: Strict I&O Subjective Patient seen and examined at bedside. Sedated, intubated on mechanical ventilator. Overnight events reviewed. vital signs Vital Sign Date Time Temp Pulse Resp B/P (MAP) Pulse Ox O2 Delivery O2 Flow Rate FiO2 02/22/24 21:00 46 26 117/46 (69) 94 02/22/24 20:00 70 02/22/24 20:00 Mechanical Ventilator+ 02/22/24 20:00 98.2 98.2 Total Intake and Output 02/21/24 02/21/24 02/22/24 15:00 23:00 07:00 Intake Total 198.625 ml 330 ml 777.6 ml Output Total 400 ml 900 ml Balance 198.625 ml -70 ml -122.4 ml medications Current Medications Medications Dose Ordered Sig/Theodora Route Start Time Stop Time Status Last Admin Dose Admin Midazolam HCl 50 ml @ 1 mls/hr Q24H IV 02/11/24 09:15 02/20/24 17:30 1 MLS/HR Sodium Chloride 10 ml Q8HR IV 02/11/24 14:00 02/22/24 14:25 10 ML Fentanyl Citrate 250 ml @ 2.5 mls/hr Q24H IV 02/11/24 10:15 02/22/24 17:36 20 MLS/HR Norepinephrine Bitartrate 250 ml @ 3.75 mls/hr Q24H IV 02/11/24 18:15 02/19/24 09:54 3.75 MLS/HR Atorvastatin Calcium 40 mg HS PO 02/12/24 22:00 02/21/24 21:39 40 MG Pantoprazole Sodium 40 mg DAILY IV 02/13/24 10:00 02/22/24 10:56 40 MG Lactulose 30 ml Q8HR PO 02/13/24 12:00 02/22/24 14:25 30 ML Enteral Nutritional Formula 1,000 ml 45ML/HR GT 02/16/24 12:45 02/19/24 14:43 1,000 ML Gentamicin Sulfate 1 drop Q4HR EACHEYE 02/16/24 18:00 02/22/24 17:54 1 DROP Aspirin 81 mg DAILY PO 02/17/24 10:00 02/22/24 10:56 81 MG Hydrocortisone Sodium Succinate 100 mg Q12HR IV 02/18/24 22:00 02/22/24 10:56 100 MG Acetylcysteine 200 mg Q8HR NEB 02/18/24 22:00 02/22/24 13:59 200 MG Albuterol 2.5 mg Q8HR NEB 02/18/24 22:00 02/22/24 13:59 2.5 MG Vancomycin HCl 0 ml @ 0 mls/hr UD IV 02/18/24 17:45 Diagnostic Test (Pha) 1 strip Q6HR 02/20/24 12:00 02/22/24 17:54 1 STRIP Insulin Human Regular Q6HR SC 02/20/24 12:00 02/22/24 18:02 3 UNITS Dextrose 50 ml UD PRN IV 02/20/24 08:45 Heparin Sodium (Porcine) 5,000 units Q12HR SC 02/20/24 10:00 02/22/24 11:00 5,000 UNITS Cefepime/Dextrose 50 ml @ 12.5 mls/hr Q24H IV 02/22/24 08:00 02/22/24 07:48 12.5 MLS/HR Dopamine HCl/ Dextrose 250 ml @ 11.625 mls/ hr [id number] IV 02/21/24 13:00 02/21/24 13:45 11.625 MLS/HR Furosemide 100 mg/ Sodium Chloride 110 ml @ 11 mls/hr Q10H IV 02/21/24 13:15 02/22/24 19:28 11 MLS/HR Propofol 100 ml @ 3.72 mls/hr Q24H IV 02/21/24 21:00 02/22/24 18:53 22.32 MLS/HR objective Gen.: Patient lying in bed in medical ICU. Sedated, intubated on mechanical ventilator. Head: Normocephalic, atraumatic. Eyes: PERRLA. Ears: Normal external anatomy. Throat: Endotracheal tube and orogastric tube in place. Neck: Supple, trachea midline. Chest: Transmitted breath sounds bilaterally. Decreased air entry bilaterally. No wheezing. Bibasilar crackles. Cardiovascular: Positive S1, positive S2. Regular rate and rhythm. Abdomen: Positive bowel sounds in all 4 quadrants. Soft, nontender, nondistended. : Roblero in place. Normal external genitalia. Rectal: Deferred. Skin: Warm, dry. Intact. Extremities: 2+ radial pulses bilaterally. No lower extremity edema. Neuro: Sedated. laboratory and microbiology Laboratory Tests 02/22/24 03:05 Test 02/22/24 03:05 Range/Units Serum Glucose 193 H 74-106 mg/dL Assessment/Plan Impression: Acute hypoxic respiratory failure secondary to pneumonia and CHF exacerbation Acute on chronic hypercarbic respiratory failure Acute respiratory distress syndrome On mechanical ventilator Pneumonia, likely Gram-negative CHF exacerbation Pulmonary edema Obesity with a BMI of 32.6 Acute stroke Events: Remains on vent support On assist control with a respiratory rate of 26, tidal volume 550, PEEP of 5, FiO2 at 70%. Increased ET tube secretions noted Recommend bronchoscopy w/ bronchoalveolar lavage. Sedated on Fentanyl, Propofol drip. Continue antibiotics - cefepime Taper sedation as tolerated. Daily CPAP Diurese w/ Lasix drip at 10 mg/hr Monitor renal function Tube feeds for nutritional support Labs and imaging reviewed. Rest of plan as noted below. Plan: s/p intubation on mechanical ventilator CT head notable for hypodense pretty 10 x 8 mm in size in the simon with the left side from strenuous for acute infarct. Chronic periventricular ischemic changes. Cerebral and cerebellar atrophy likely age-related. Recommend neurology evaluation. CXR image and report reviewed. Devices in place. Cardiomegaly. Small left pleural effusion. Diffuse interstitial opacities likely pulmonary edema. Initial ABG was notable for acute on chronic hypercarbic respiratory failure, PaCO2 63.4 mmHg Repeat ABG reviewed. Compensated. Poor PF ratio. S/p bronchoscopy with right middle lobe bronchoalveolar lavage on 02/15/24. See procedure note for details. Vent settings; On assist control with a respiratory rate of 26, tidal volume 550, PEEP of 5, FiO2 at 70%. Titrate FIO2 to keep O2 saturation above 92%. VAP bundle Daily ABG and CXR while intubated. Sedate for ventilator synchrony Pressors as necessary for hemodynamic support. Titrate to keep MAP above 65 mmHg/SBP above 90 mmHg. Continue antibiotics. F/u cultures. Diurese to euvolemia. Monitor ins/outs. On Lasix BID. Monitor renal function due to acute kidney injury. Monitor electrolytes. Supplement as necessary. Nutritional support. Accucheks, ISS. GI/DVT prophylaxis. Condition: Critical Prognosis: Poor given multiple comorbidities. Rest of plan per hospitalist and other consultants. A total of 35 minutes of critical care time was spent reviewing the patient record, examining the patient, making a diagnostic and therapeutic plan, discussing this plan with the medical personnel, following up on diagnostic studies and following the patient for clinical stability excluding any and all procedures. At least 50% of this time was spent in direct, [id number] contact. Thank you GIORGI Huffman for allowing me to participate in this patient's care. Further recommendations will depend on patient's clinical course. Please do not hesitate to contact me if you have any questions or concerns. This medical document was created using an electronic medical record system with [employer] dictation system. Although this document has been carefully reviewed, there may still be some phonetic and typographical errors. These areas are purely typographical due to imperfections of the software programs, and do not reflect any compromise in the patient's medical care. Dietary Evaluation Review Comments: 1) Recommend CCHO-60, Cardiac 2gNa LoFat LoCholesterol diet when medically feasible. 2) If GI accessible but PO feeding is not an option, consider glucerna 1.2 @45ml/hr. In 24 hrs, pt will be receiving 65g protein and 1296 kcal.Adj and increase infusion rate as tolerated. 3) If NPO > 7 days and GI is not accesible, consider TPN to support 75% of her energy and protein needs. Expected Outcomes/Goals: Gradual weight loss, improved glucose Plan discussed with: Other (JESUS Zuniga) Critical Care Time(min): 35 ALEXANDER SCHWAB MD Feb 22, 2024 21:24
[2024-02-23] VITALS (105 sets, daily range): BP systolic 121–173; BP diastolic 47–72; PULSE 44–67; RESP 10–27; TEMP 98.1–98.7; O2SAT 91–99
[2024-02-23 04:19] LABS: Hemoglobin 12.3 g/dL (13.5-17.5); Mean Corpuscular Hemoglobin 30.2 pg (28.0-32.0); Mean Corpuscular Hgb Conc. 34.2 g/dL (32.0-36.0); Mean Corpuscular Volume 88.2 fL (80.0-100.0); Platelet Count (auto) 310 10^3/uL (140-450); Red Blood Cells 4.08 10^6/uL (4.5-5.90); Red Cell Distribution Width 14.7 % (11.8-14.3); White Blood Cell 10.9 10^3/uL (4.4-10.8)
[2024-02-23 04:30] LABS: Anion Gap 16 (5-15); Carbon Dioxide 21 mmol/L (20-31); Chloride 102 mmol/L (98-107); Potassium 4.2 mmol/L (3.5-5.1); Sodium 139 mmol/L (136-145)
[2024-02-23 04:36] LABS: BUN/Creatinine Ratio 23.1 (10.0-20.0); Glucose 171 mg/dL (74-106)
[2024-02-23 04:40] LABS: Band Neutrophils % (manual) 0; Basophils % (manual) 0 (0.0-2.0); Blast Cells 0; Eosinophils % (manual) 0 (0-7); Promyelocytes % 0; Reactive Lymphocytes 0
[2024-02-23 04:52] LABS: Blood Urea Nitrogen 113 mg/dL (9-23)
[2024-02-23 05:39] LABS: Lymphocytes % (manual) 9 (10.0-50.0); Metamyelocytes % 3; Monocytes % (manual) 6 (0-12); Myelocytes % 1
[2024-02-23 05:40] LABS: Platelet Estimate Adequate
[2024-02-23 06:43] LABS: Base Excess -6.3 mmol/L (-2.0-3.0)
--- NOTE | 2024-02-23 11:20 | DVHPN2 ---
Subjective Patient seen and examined at bedside. Remained unchanged overnight. Still intubated. Reviewed: Care Plan, H&P, Labs, Medications, Previous Orders, Radiology Changes from previous H/P or p: No Changes Respiratory: Shortness of breath Objective Vitals Vital Signs Date Time Temp Pulse Resp B/P (MAP) Pulse Ox O2 Delivery O2 Flow Rate FiO2 02/23/24 10:45 48 26 135/54 (81) 96 70 02/23/24 10:00 Mechanical Ventilator+ 02/23/24 08:00 98.4 98.4 Intake/Output Intake and Output 02/23/24 07:00 Intake Total 1289.57 ml Output Total 925 ml Balance 364.57 ml Intake Oral 128 ml IV Total 1161.57 ml Output Urine Total 925 ml # Bowel Movements 1 General Appearance: Other (intubated and sedated) HEENT: PERRLA, Other (small pupils no reaction to light) Lungs: Clear to auscultation Cardiovascular: Regular rate, Normal S1, Normal S2 Abdomen: Normal bowel sounds, Soft, No tenderness, No hepatospenomegaly, Other (obese) Extremities: No edema Neuro: Other (sedated // intubated//no response top noxious stimulii/per nursing at sedation breaks has cough and gag reflex) Psych/Mental Status: Other (Sedated and intubated, unable to exam) Medications Current Medications Medications Dose Ordered Sig/Theodora Route Start Time Stop Time Status Last Admin Dose Admin Midazolam HCl 50 ml @ 1 mls/hr Q24H IV 02/11/24 09:15 02/20/24 17:30 1 MLS/HR Sodium Chloride 10 ml Q8HR IV 02/11/24 14:00 02/23/24 06:52 10 ML Fentanyl Citrate 250 ml @ 2.5 mls/hr Q24H IV 02/11/24 10:15 02/22/24 17:36 20 MLS/HR Norepinephrine Bitartrate 250 ml @ 3.75 mls/hr Q24H IV 02/11/24 18:15 02/19/24 09:54 3.75 MLS/HR Atorvastatin Calcium 40 mg HS PO 02/12/24 22:00 02/22/24 21:32 40 MG Pantoprazole Sodium 40 mg DAILY IV 02/13/24 10:00 02/23/24 10:27 40 MG Lactulose 30 ml Q8HR PO 02/13/24 12:00 02/23/24 05:35 30 ML Enteral Nutritional Formula 1,000 ml 45ML/HR GT 02/16/24 12:45 02/19/24 14:43 1,000 ML Gentamicin Sulfate 1 drop Q4HR EACHEYE 02/16/24 18:00 02/23/24 10:26 1 DROP Aspirin 81 mg DAILY PO 02/17/24 10:00 02/23/24 10:27 81 MG Hydrocortisone Sodium Succinate 100 mg Q12HR IV 02/18/24 22:00 02/23/24 10:27 100 MG Acetylcysteine 200 mg Q8HR NEB 02/18/24 22:00 02/23/24 06:22 200 MG Albuterol 2.5 mg Q8HR NEB 02/18/24 22:00 02/23/24 06:21 2.5 MG Vancomycin HCl 0 ml @ 0 mls/hr UD IV 02/18/24 17:45 Diagnostic Test (Pha) 1 strip Q6HR 02/20/24 12:00 02/23/24 05:35 1 STRIP Insulin Human Regular Q6HR SC 02/20/24 12:00 02/23/24 05:38 3 UNITS Dextrose 50 ml UD PRN IV 02/20/24 08:45 Heparin Sodium (Porcine) 5,000 units Q12HR SC 02/20/24 10:00 02/23/24 10:35 5,000 UNITS Cefepime/Dextrose 50 ml @ 12.5 mls/hr Q24H IV 02/22/24 08:00 02/23/24 07:27 12.5 MLS/HR Dopamine HCl/ Dextrose 250 ml @ 11.625 mls/ hr [id number] IV 02/21/24 13:00 02/21/24 13:45 11.625 MLS/HR Furosemide 100 mg/ Sodium Chloride 110 ml @ 11 mls/hr Q10H IV 02/21/24 13:15 02/23/24 04:35 11 MLS/HR Propofol 100 ml @ 3.72 mls/hr Q24H IV 02/21/24 21:00 02/23/24 06:51 11.16 MLS/HR Laboratory Results Laboratory Tests 02/23/24 03:19 Chemistry Test 02/23/24 03:19 Calcium Level 9.0 mg/dL (8.7-10.4) Urinalysis Test 02/20/24 14:57 Urine Color Brown (Yellow) H Urine Clarity Ex.turbid (Clear) Urine pH 5.5 (5.0-9.0) Urine Specific [place] 1.014 (1.001-1.035) Urine Protein 2+ (Negative) H Urine Ketones Negative (Negative) Urine Blood 3+ /uL (Negative) H Urine Nitrite Negative (Negative) Urine Bilirubin Negative (Negative) Urine Urobilinogen Normal mg/dL (Negative) Urine Leukocyte Esterase 1+ /uL (Negative) Urine RBC 124 /hpf (0 - 3) Urine WBC 107 /hpf (0 - 3) Urine Squamous Epithelial Cells Few /hpf (<5) Urine Bacteria Few /hpf (None Seen) H Urine Mucus Few (None Seen) Urine Creatinine 85.51 mg/dL (30.0-125.0) Urine Sodium 15 mmol/L (40-220) L Urine Glucose Normal mg/dL (Normal) Blood Gas Results Test 02/23/24 06:33 Arterial Blood pH 7.346 (7.350-7.450) FiO2 % 70.0 Microbiology Microbiology Date/Time Source Procedure Growth Status 02/19/24 10:50 Bronchial Washings Gram Stain - Final Complete 02/19/24 10:50 Respiratory Culture - Final Methicillin Resistant S.aureus Complete 02/14/24 12:04 Urine - [place] Urine Culture - Final Complete 02/12/24 13:30 Blood Blood Culture - Final NO GROWTH AFTER 5 DAYS OF INCUBATION. 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 Continuing with IV antibiotic. With sides consent with another physician for hemodialysis cath placed and also other procedure. Patient had no family member. Continuing with ventilation support Continuing with cefepime and vancomycin Continuing with TPN Plan discussed with: Other (RN) Date of Service: Feb 23, 2024 Billing Provider: DALE ROBERTSON MD Common Visit Codes: [id number] INP/OBS CARE(HIGH) DALE ROBERTSON MD Feb 23, 2024 11:20
--- NOTE | 2024-02-23 16:01 | DVHPN2 ---
Progress Note Date Seen: Feb 23, 2024 Medical Necessity Reason Pt with a Central, PICC or Fol: Yes The following are medically ne: Central Line, Roblero Catheter Reason for roblero catheter: Strict I&O Subjective Patient reports: Other (intubated) Review of Systems: Deferred Objective vital signs Vital Sign Date Time Temp Pulse Resp B/P (MAP) Pulse Ox O2 Delivery O2 Flow Rate FiO2 02/23/24 14:03 145/57 02/23/24 13:58 51 26 92 60 02/23/24 12:00 Mechanical Ventilator+ 02/23/24 08:00 98.4 98.4 Total Intake and Output 02/22/24 02/22/24 02/23/24 15:00 23:00 07:00 Intake Total 558.4 ml 386.03 ml 345.14 ml Output Total 475 ml 450 ml Balance 558.4 ml -88.97 ml -104.86 ml medications Current Medications Medications Dose Ordered Sig/Theodora Route Start Time Stop Time Status Last Admin Dose Admin Midazolam HCl 50 ml @ 1 mls/hr Q24H IV 02/11/24 09:15 02/20/24 17:30 1 MLS/HR Sodium Chloride 10 ml Q8HR IV 02/11/24 14:00 02/23/24 14:03 10 ML Fentanyl Citrate 250 ml @ 2.5 mls/hr Q24H IV 02/11/24 10:15 02/22/24 17:36 20 MLS/HR Norepinephrine Bitartrate 250 ml @ 3.75 mls/hr Q24H IV 02/11/24 18:15 02/19/24 09:54 3.75 MLS/HR Atorvastatin Calcium 40 mg HS PO 02/12/24 22:00 02/22/24 21:32 40 MG Pantoprazole Sodium 40 mg DAILY IV 02/13/24 10:00 02/23/24 10:27 40 MG Lactulose 30 ml Q8HR PO 02/13/24 12:00 02/23/24 14:03 30 ML Enteral Nutritional Formula 1,000 ml 45ML/HR GT 02/16/24 12:45 02/19/24 14:43 1,000 ML Gentamicin Sulfate 1 drop Q4HR EACHEYE 02/16/24 18:00 02/23/24 14:03 1 DROP Aspirin 81 mg DAILY PO 02/17/24 10:00 02/23/24 10:27 81 MG Acetylcysteine 200 mg Q8HR NEB 02/18/24 22:00 02/23/24 13:57 200 MG Albuterol 2.5 mg Q8HR NEB 02/18/24 22:00 02/23/24 13:57 2.5 MG Vancomycin HCl 0 ml @ 0 mls/hr UD IV 02/18/24 17:45 Diagnostic Test (Pha) 1 strip Q6HR 02/20/24 12:00 02/23/24 12:02 1 STRIP Insulin Human Regular Q6HR SC 02/20/24 12:00 02/23/24 05:38 3 UNITS Dextrose 50 ml UD PRN IV 02/20/24 08:45 Heparin Sodium (Porcine) 5,000 units Q12HR SC 02/20/24 10:00 02/23/24 10:35 5,000 UNITS Cefepime/Dextrose 50 ml @ 12.5 mls/hr Q24H IV 02/22/24 08:00 02/23/24 07:27 12.5 MLS/HR Dopamine HCl/ Dextrose 250 ml @ 11.625 mls/ hr [id number] IV 02/21/24 13:00 02/21/24 13:45 11.625 MLS/HR Furosemide 100 mg/ Sodium Chloride 110 ml @ 11 mls/hr Q10H IV 02/21/24 13:15 02/23/24 14:03 11 MLS/HR Propofol 100 ml @ 3.72 mls/hr Q24H IV 02/21/24 21:00 02/23/24 06:51 11.16 MLS/HR Examination: GENERAL:Abnormal, LUNGS:Abnormal, MSK:Abnormal, NEURO:Abnormal laboratory and microbiology Laboratory Tests 02/23/24 03:19 Test 02/23/24 03:19 Range/Units Serum Glucose 171 H 74-106 mg/dL Microbiology Date/Time Source Procedure Growth Status 02/19/24 10:50 Bronchial Washings Gram Stain - Final Complete 02/19/24 10:50 Respiratory Culture - Final Methicillin Resistant S.aureus Complete 02/14/24 12:04 Urine - [place] Urine Culture - Final Complete 02/12/24 13:30 Blood Blood Culture - Final NO GROWTH AFTER 5 DAYS OF INCUBATION. 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 2) If GI accessible but PO feeding is not an option, consider glucerna 1.2 @45ml/hr. In 24 hrs, pt will be receiving 65g protein and 1296 kcal.Adj and increase infusion rate as tolerated. 3) If NPO > 7 days and GI is not accesible, consider TPN to support 75% of her energy and protein needs. Expected Outcomes/Goals: Gradual weight loss, improved glucose DEMIAN DE LA TORRE MD Feb 23, 2024 16:01
--- NOTE | 2024-02-23 19:36 | DVH ---
CHEST RADIOGRAPH Indication: post catheter Technique: Single frontal view of the chest was obtained Comparison: XY CHEST PORTABLE on DOS: 02/22/24, XY CHEST PORTABLE on DOS: 02/21/24, XY CHEST XRAY 1 V IEW on DOS: 02/20/24, XY CHEST XRAY 1 VIEW on DOS: 02/19/24, XY CHEST PORTABLE on DOS: 02/18/24, XY C HEST PORTABLE on DOS: 02/22/24 FINDINGS: Lines and Tubes: Endotracheal tube, enteric catheter and right central venous catheter in satisfactor y position. Lungs: Congestion Pleura: No effusion. No pneumothorax. Cardiomediastinal contours: Unremarkable Bones: Unremarkable IMPRESSION: 1. Lines and tubes in satisfactory position. No significant interval change.
--- NOTE | 2024-02-23 19:49 | DVHNC2 ---
Procedure - Bronchoscopy procedure note: Indications: Increased ET tube secretions, Possible mucous plugging. Medicines: See INTERNAL CORROSION SPECIALIST notes. Complications: None PROCEDURE: Patient medications and allergies reviewed. The risks and benefits of the procedure and the sedation options and risk were discussed. No NOK. 2 physician consent for emergent procedure due to increase FIO2 requirements. All questions were answered and informed consent was obtained. Patient identification and proposed procedure were verified prior to the procedure by the physician, and a nurse, and the respiratory therapist in ICU room. The heart rate, respiratory rate, oxygen saturations, blood pressure, adequacy of pulmonary ventilation, and response to care were monitored throughout the procedure. The physical status of the patient was reassessed after the procedure. After obtaining informed consent, the bronchoscope was introduced through the endotracheal tube and advanced into the trachea bronchial tree of both lungs. The procedure was accomplished without difficulty. The patient tolerated the procedure well. Findings: The trachea is in normal caliber. The elm[place] is sharp. The tracheobronchial tree of the right lung was examined to at least the first subsegmental level. The bronchial mucosa and anatomy in the right lung are normal. There are no endobronchial lesions. There was copious whitish secretions from right main stem bronchus onward throughout R4-R10. Right middle lobe (RML) Bronchoalveolar lavage (BAL) obtained. RML BAL sent for gram stain and culture, viral culture, and fungal culture. The left upper lobe, lingula, and left lower lobe were examined to at least the first subsegmental level. Bronchial mucosa and anatomy in the left upper lobe and lingula are normal. There were no endobronchial lesions. There was copious whitish secretions from left main stem bronchus onward throughout L5-L10. Mucous plugging removed from L5-L10. There was no active bleeding at the completion of the procedure. I examined the oropharynx and posterior pharynx around epiglottis. Copious secretions were pooled and dribbling down the side of ET tube. These were suctioned out. These were likely responsible for secretions noted inside of tracheobronchial tree. Estimated blood loss: Less than 5 mL. Impression: Left lower lobe atelectasis due to mucous plugging Mucous plugging from L5-L10 and R4-R10. RML BAL performed Oropharynx secretions Recommendation: Follow-up RML BAL results and perform aggressive oral care to remove oropharynx secretions. Procedure codes: 12549/64402, bronchoscopy, rigid and flexible, including fluoroscopic guidance, one performed; with bronchial endobronchial broncho- alveolar lavage, single or multiple sites ALEXANDER SCHWAB MD Feb 23, 2024 19:49
--- NOTE | 2024-02-23 20:54 | DVH ---
CHEST RADIOGRAPH Indication: post catheter Technique: Single frontal view of the chest was obtained COMPARISON: XY CHEST XRAY 1 VIEW on DOS: 02/23/24, XY CHEST PORTABLE on DOS: 02/22/24, XY CHEST MARGIE BLE on DOS: 02/21/24, XY CHEST XRAY 1 VIEW on DOS: 02/20/24, XY CHEST XRAY 1 VIEW on DOS: 02/19/24 FINDINGS: Lines and Tubes: Endotracheal tube terminates 3.3 cm above the elmira. Stable right-sided central eugene ous catheter with tip in the cavoatrial junction. Stable left-sided central venous catheter with tip in the lower SVC. Stable enteric tube coursing below the diaphragm. Lungs: Redemonstration of moderate interstitial pulmonary edema. Pleura: Questionable bilateral pleural effusions. No pneumothorax. Cardiomediastinal contours: Mild cardiomegaly Bones: Unremarkable IMPRESSION: 1. Redemonstration of moderate interstitial pulmonary edema. 2. Questionable bilateral pleural effusions. 3. Lines and tubes as above.
--- NOTE | 2024-02-23 23:18 | DVHPN2 ---
Progress Note - Dictate Date Seen: Feb 23, 2024 Medical Necessity Reason Pt with a Central, PICC or Fol: Yes The following are medically ne: Central Line, Roblero Catheter Reason for roblero catheter: Strict I&O Subjective Patient seen and examined at bedside. Sedated, intubated on mechanical ventilator. Overnight events reviewed. vital signs Vital Sign Date Time Temp Pulse Resp B/P (MAP) Pulse Ox O2 Delivery O2 Flow Rate FiO2 02/23/24 23:00 56 26 164/70 (101) 94 02/23/24 22:43 60 02/23/24 22:00 Mechanical Ventilator+ 02/23/24 20:00 98.7 98.7 Total Intake and Output 02/22/24 02/22/24 02/23/24 15:00 23:00 07:00 Intake Total 558.4 ml 386.03 ml 345.14 ml Output Total 475 ml 450 ml Balance 558.4 ml -88.97 ml -104.86 ml medications Current Medications Medications Dose Ordered Sig/Theodora Route Start Time Stop Time Status Last Admin Dose Admin Midazolam HCl 50 ml @ 1 mls/hr Q24H IV 02/11/24 09:15 02/20/24 17:30 1 MLS/HR Sodium Chloride 10 ml Q8HR IV 02/11/24 14:00 02/23/24 21:18 10 ML Fentanyl Citrate 250 ml @ 2.5 mls/hr Q24H IV 02/11/24 10:15 02/22/24 17:36 20 MLS/HR Norepinephrine Bitartrate 250 ml @ 3.75 mls/hr Q24H IV 02/11/24 18:15 02/19/24 09:54 3.75 MLS/HR Atorvastatin Calcium 40 mg HS PO 02/12/24 22:00 02/23/24 21:18 40 MG Pantoprazole Sodium 40 mg DAILY IV 02/13/24 10:00 02/23/24 10:27 40 MG Lactulose 30 ml Q8HR PO 02/13/24 12:00 02/23/24 21:17 30 ML Enteral Nutritional Formula 1,000 ml 45ML/HR GT 02/16/24 12:45 02/19/24 14:43 1,000 ML Gentamicin Sulfate 1 drop Q4HR EACHEYE 02/16/24 18:00 02/23/24 21:18 1 DROP Aspirin 81 mg DAILY PO 02/17/24 10:00 02/23/24 10:27 81 MG Acetylcysteine 200 mg Q8HR NEB 02/18/24 22:00 02/23/24 22:43 200 MG Albuterol 2.5 mg Q8HR NEB 02/18/24 22:00 02/23/24 22:43 2.5 MG Vancomycin HCl 0 ml @ 0 mls/hr UD IV 02/18/24 17:45 Diagnostic Test (Pha) 1 strip Q6HR 02/20/24 12:00 02/23/24 17:51 1 STRIP Insulin Human Regular Q6HR SC 02/20/24 12:00 02/23/24 05:38 3 UNITS Dextrose 50 ml UD PRN IV 02/20/24 08:45 Heparin Sodium (Porcine) 5,000 units Q12HR SC 02/20/24 10:00 02/23/24 21:38 5,000 UNITS Cefepime/Dextrose 50 ml @ 12.5 mls/hr Q24H IV 02/22/24 08:00 02/23/24 07:27 12.5 MLS/HR Dopamine HCl/ Dextrose 250 ml @ 11.625 mls/ hr [id number] IV 02/21/24 13:00 02/21/24 13:45 11.625 MLS/HR Furosemide 100 mg/ Sodium Chloride 110 ml @ 11 mls/hr Q10H IV 02/21/24 13:15 02/23/24 14:03 11 MLS/HR Propofol 100 ml @ 3.72 mls/hr Q24H IV 02/21/24 21:00 02/23/24 22:07 11.16 MLS/HR objective Gen.: Patient lying in bed in medical ICU. Sedated, intubated on mechanical ventilator. Head: Normocephalic, atraumatic. Eyes: PERRLA. Ears: Normal external anatomy. Throat: Endotracheal tube and orogastric tube in place. Neck: Supple, trachea midline. Chest: Transmitted breath sounds bilaterally. Decreased air entry bilaterally. No wheezing. Bibasilar crackles. Cardiovascular: Positive S1, positive S2. Regular rate and rhythm. Abdomen: Positive bowel sounds in all 4 quadrants. Soft, nontender, nondistended. : Roblero in place. Normal external genitalia. Rectal: Deferred. Skin: Warm, dry. Intact. Extremities: 2+ radial pulses bilaterally. No lower extremity edema. Neuro: Sedated. laboratory and microbiology Laboratory Tests 02/23/24 03:19 Test 02/23/24 03:19 Range/Units Serum Glucose 171 H 74-106 mg/dL Assessment/Plan Impression: Acute hypoxic respiratory failure secondary to pneumonia and CHF exacerbation Acute on chronic hypercarbic respiratory failure Acute respiratory distress syndrome On mechanical ventilator Pneumonia, likely Gram-negative CHF exacerbation Pulmonary edema Obesity with a BMI of 32.6 Acute stroke Events: Remains on vent support On assist control with a respiratory rate of 26, tidal volume 550, PEEP of 5, FiO2 at 60%. Increased ET tube secretions noted Plan for bronchoscopy w/ bronchoalveolar lavage. Central line placement Sedated on Fentanyl, Propofol drip. Continue antibiotics - cefepime Taper sedation as tolerated. Daily CPAP Diurese w/ Lasix drip at 10 mg/hr Monitor renal function Monitor ins and outs Tube feeds for nutritional support Labs and imaging reviewed. Rest of plan as noted below. Plan: s/p intubation on mechanical ventilator CT head notable for hypodense pretty 10 x 8 mm in size in the simon with the left side from strenuous for acute infarct. Chronic periventricular ischemic changes. Cerebral and cerebellar atrophy likely age-related. Recommend neurology evaluation. CXR image and report reviewed. Devices in place. Cardiomegaly. Small left pleural effusion. Diffuse interstitial opacities likely pulmonary edema. Initial ABG was notable for acute on chronic hypercarbic respiratory failure, PaCO2 63.4 mmHg Repeat ABG reviewed. Compensated. Poor PF ratio. S/p bronchoscopy with right middle lobe bronchoalveolar lavage on 02/15/24. See procedure note for details. Vent settings; On assist control with a respiratory rate of 26, tidal volume 550, PEEP of 5, FiO2 at 60%. Titrate FIO2 to keep O2 saturation above 92%. VAP bundle Daily ABG and CXR while intubated. Sedate for ventilator synchrony Pressors as necessary for hemodynamic support. Titrate to keep MAP above 65 mmHg/SBP above 90 mmHg. Continue antibiotics. F/u cultures. Diurese to euvolemia. Monitor ins/outs. On Lasix BID. Monitor renal function due to acute kidney injury. Monitor electrolytes. Supplement as necessary. Nutritional support. Accucheks, ISS. GI/DVT prophylaxis. Condition: Critical Prognosis: Poor given multiple comorbidities. Rest of plan per hospitalist and other consultants. A total of 35 minutes of critical care time was spent reviewing the patient record, examining the patient, making a diagnostic and therapeutic plan, discussing this plan with the medical personnel, following up on diagnostic studies and following the patient for clinical stability excluding any and all procedures. At least 50% of this time was spent in direct, onbp-uf-vsic contact. Thank you GIORGI Huffman for allowing me to participate in this patient's care. Further recommendations will depend on patient's clinical course. Please do not hesitate to contact me if you have any questions or concerns. This medical document was created using an electronic medical record system with [employer] dictation system. Although this document has been carefully reviewed, there may still be some phonetic and typographical errors. These areas are purely typographical due to imperfections of the software programs, and do not reflect any compromise in the patient's medical care. Dietary Evaluation Review Comments: 1) Recommend CCHO-60, Cardiac 2gNa LoFat LoCholesterol diet when medically feasible. 2) If GI accessible but PO feeding is not an option, consider glucerna 1.2 @45ml/hr. In 24 hrs, pt will be receiving 65g protein and 1296 kcal.Adj and increase infusion rate as tolerated. 3) If NPO > 7 days and GI is not accesible, consider TPN to support 75% of her energy and protein needs. Expected Outcomes/Goals: Gradual weight loss, improved glucose Plan discussed with: Other (JESUS Zuniga) Critical Care Time(min): 35 ALEXANDER SCHWAB MD Feb 23, 2024 23:18
--- NOTE | 2024-02-23 23:30 | DVHNC2 ---
Procedure - ULTRASOUND-GUIDED LEFT INTERNAL JUGULAR large bore CENTRAL VENOUS CANNULATION CPT Codes: 81337 (ultrasound guidance) 66161 (insertion of non-tunneled centrally inserted central venous catheter) 72029 (CXR interpretation) DATE: February 23, 2024 PHYSICIAN: Alexander Canales Transfer Car Operator: Dr Libby Caputo PREOPERATIVE DIAGNOSIS: In need of dialysis access POSTOPERATIVE DIAGNOSIS: In need of dialysis access PROCEDURE PERFORMED: Limited Ultrasound-guided LEFT internal jugular large-bore central line placement. ANESTHESIA: 2 mL of 1% lidocaine plain. ESTIMATED BLOOD LOSS: less than 5 mL. SPECIMENS: None. COMPLICATIONS: None. INDICATIONS FOR PROCEDURE: The patient is in need of large bore IV access for administration of fluids, including blood products and vasoactive drugs, possible transvenous cardiac pacing and CVP monitoring for hemodynamic instability. DESCRIPTION OF PROCEDURE IN DETAIL: The patient was lying in the Trendelenburg position with head turned 30 degrees away from the insertion site. The skin was thoroughly sponged with chlorhexidine and allowed to dry. All persons involved were shielded with hair nets, face masks and sterile gowns. With sterile-gloved hands the LEFT neck area was draped with the large disposable sterile field provided in the pre-manufactured kit. The skin and subcutaneous tissues superficial to the LEFT internal jugular vein were anesthetized with 2 mL of 1% lidocaine. The LEFT internal jugular vein was identified on ultrasound from the angle of the mandible down into the supraclavicular fossa using the linear ultrasound probe in the transverse orientation. The carotid artery was identified and avoided utilizing color-flow. The internal jugular vein was then placed in the center of the ultrasound field and compressed for patency. A movement artifact was identified as the needle was advanced through the skin and advanced toward the vessel. A real time hyperechoic signal revealed visualization of vascular needle entry into the lumen as blood was noted to flashback in the syringe. The needle was then held in place while the guide wire was advanced. The needle was then removed. Direct visualization of guide wire location within the vein was noted on ultrasound indicating proper placement and was document in the electronic medical record chart. A skin dilator was advanced over the guidewire and removed, and the double-lumen catheter was then advanced over the guide wire into proper position. The guide wire was removed and discarded. The ports were aspirated which showed good blood return and then carefully flushed with normal saline. The catheter was stabilized and sutured to the skin with 2-0 silk at 2 anchor points. A sterile bio-patch and dressing was placed over the catheter, including the insertion site. The patient tolerated the procedure well. A chest x-ray was ordered for position confirmation. I reviewed the image immediately after it was taken at bedside. Post-procedure chest x-ray demonstrates the central line in the superior vena and no evidence of any pneumothorax. An image recording of the procedure accompanies the chart. ALEXANDER CANALES MD Feb 23, 2024 23:30
[2024-02-24] VITALS (107 sets, daily range): BP systolic 126–181; BP diastolic 49–79; PULSE 50–68; RESP 11–36; TEMP 98.2–98.4; O2SAT 85–100
[2024-02-24 04:28] LABS: Chloride 101 mmol/L (98-107); Potassium 3.5 mmol/L (3.5-5.1); Sodium 140 mmol/L (136-145)
[2024-02-24 04:29] LABS: Anion Gap 19 (5-15); Carbon Dioxide 20 mmol/L (20-31)
[2024-02-24 04:34] LABS: BUN/Creatinine Ratio 22.3 (10.0-20.0); Glucose 112 mg/dL (74-106)
[2024-02-24 04:55] LABS: Blood Urea Nitrogen 124 mg/dL (9-23)
--- NOTE | 2024-02-24 04:58 | DVH ---
CHEST RADIOGRAPH Indication: PATIENT INTUBATED Technique: Single frontal view of the chest was obtained Comparison: XY CHEST XRAY 1 VIEW on DOS: 02/23/24 FINDINGS: Lines and Tubes: Endotracheal tube terminates 3.3 cm above the [place]. Right central venous catheter terminates in the superior vena cava. Left central venous catheter terminates in the superior vena c diamante. Enteric tube terminates in the stomach. Lungs: Bilateral interstitial prominence is unchanged. No focal airspace disease. Pleura: Possible bilateral pleural effusions similar to prior study. No pneumothorax. Cardiomediastinal contours: Stable. Bones: No acute osseous abnormality. IMPRESSION: 1. Stable interstitial pulmonary edema. 2. Possible bilateral pleural effusions similar to prior study.
[2024-02-24 07:08] LABS: Base Excess -7.5 mmol/L (-2.0-3.0)
--- NOTE | 2024-02-24 11:13 | DVHPN2 ---
Subjective Patient seen and examined at bedside. Remained unchanged overnight. Still intubated. Reviewed: Care Plan, H&P, Labs, Medications, Previous Orders, Radiology Changes from previous H/P or p: No Changes Respiratory: Shortness of breath Objective Vitals Vital Signs Date Time Temp Pulse Resp B/P (MAP) Pulse Ox O2 Delivery O2 Flow Rate FiO2 02/24/24 10:45 52 26 140/58 (85) 92 02/24/24 10:00 Mechanical Ventilator+ 65 65 02/24/24 08:00 98.3 98.3 Intake/Output Intake and Output 02/24/24 07:00 Intake Total 1074.75 ml Output Total 1975 ml Balance -900.25 ml Intake Oral 140 ml IV Total 934.75 ml Output Urine Total 1775 ml Gastric Drainage Total 200 ml # Bowel Movements 1 General Appearance: Other (intubated and sedated) HEENT: PERRLA, Other (small pupils no reaction to light) Lungs: Clear to auscultation Cardiovascular: Regular rate, Normal S1, Normal S2 Abdomen: Normal bowel sounds, Soft, No tenderness, No hepatospenomegaly, Other (obese) Extremities: No edema Neuro: Other (sedated // intubated//no response top noxious stimulii/per nursing at sedation breaks has cough and gag reflex) Psych/Mental Status: Other (Sedated and intubated, unable to exam) Medications Current Medications Medications Dose Ordered Sig/Theodora Route Start Time Stop Time Status Last Admin Dose Admin Midazolam HCl 50 ml @ 1 mls/hr Q24H IV 02/11/24 09:15 02/20/24 17:30 1 MLS/HR Sodium Chloride 10 ml Q8HR IV 02/11/24 14:00 02/24/24 05:30 10 ML Fentanyl Citrate 250 ml @ 2.5 mls/hr Q24H IV 02/11/24 10:15 02/23/24 23:42 15 MLS/HR Norepinephrine Bitartrate 250 ml @ 3.75 mls/hr Q24H IV 02/11/24 18:15 02/19/24 09:54 3.75 MLS/HR Atorvastatin Calcium 40 mg HS PO 02/12/24 22:00 02/23/24 21:18 40 MG Pantoprazole Sodium 40 mg DAILY IV 02/13/24 10:00 02/24/24 09:45 40 MG Lactulose 30 ml Q8HR PO 02/13/24 12:00 02/24/24 05:29 30 ML Enteral Nutritional Formula 1,000 ml 45ML/HR GT 02/16/24 12:45 02/24/24 09:44 1,000 ML Gentamicin Sulfate 1 drop Q4HR EACHEYE 02/16/24 18:00 02/24/24 09:46 1 DROP Aspirin 81 mg DAILY PO 02/17/24 10:00 02/24/24 09:46 81 MG Acetylcysteine 200 mg Q8HR NEB 02/18/24 22:00 02/24/24 05:54 200 MG Albuterol 2.5 mg Q8HR NEB 02/18/24 22:00 02/24/24 05:54 2.5 MG Vancomycin HCl 0 ml @ 0 mls/hr UD IV 02/18/24 17:45 Diagnostic Test (Pha) 1 strip Q6HR 02/20/24 12:00 02/24/24 05:30 1 STRIP Insulin Human Regular Q6HR SC 02/20/24 12:00 02/23/24 05:38 3 UNITS Dextrose 50 ml UD PRN IV 02/20/24 08:45 Heparin Sodium (Porcine) 5,000 units Q12HR SC 02/20/24 10:00 02/24/24 10:04 5,000 UNITS Cefepime/Dextrose 50 ml @ 12.5 mls/hr Q24H IV 02/22/24 08:00 02/24/24 07:56 12.5 MLS/HR Dopamine HCl/ Dextrose 250 ml @ 11.625 mls/ hr [id number] IV 02/21/24 13:00 02/21/24 13:45 11.625 MLS/HR Furosemide 100 mg/ Sodium Chloride 110 ml @ 11 mls/hr Q10H IV 02/21/24 13:15 02/24/24 05:30 11 MLS/HR Propofol 100 ml @ 3.72 mls/hr Q24H IV 02/21/24 21:00 02/24/24 09:44 18.6 MLS/HR Laboratory Results Laboratory Tests 02/23/24 03:19 02/24/24 03:00 Chemistry Test 02/24/24 03:00 Calcium Level 9.0 mg/dL (8.7-10.4) Urinalysis Test 02/20/24 14:57 Urine Color Brown (Yellow) H Urine Clarity Ex.turbid (Clear) Urine pH 5.5 (5.0-9.0) Urine Specific [place] 1.014 (1.001-1.035) Urine Protein 2+ (Negative) H Urine Ketones Negative (Negative) Urine Blood 3+ /uL (Negative) H Urine Nitrite Negative (Negative) Urine Bilirubin Negative (Negative) Urine Urobilinogen Normal mg/dL (Negative) Urine Leukocyte Esterase 1+ /uL (Negative) Urine RBC 124 /hpf (0 - 3) Urine WBC 107 /hpf (0 - 3) Urine Squamous Epithelial Cells Few /hpf (<5) Urine Bacteria Few /hpf (None Seen) H Urine Mucus Few (None Seen) Urine Creatinine 85.51 mg/dL (30.0-125.0) Urine Sodium 15 mmol/L (40-220) L Urine Glucose Normal mg/dL (Normal) Blood Gas Results Test 02/24/24 06:56 Arterial Blood pH 7.285 (7.350-7.450) FiO2 % 60.0 Microbiology Microbiology Date/Time Source Procedure Growth Status 02/19/24 10:50 Bronchial Washings Gram Stain - Final Complete 02/19/24 10:50 Respiratory Culture - Final Methicillin Resistant S.aureus Complete 02/14/24 12:04 Urine - [place] Urine Culture - Final Complete 02/12/24 13:30 Blood Blood Culture - Final NO GROWTH AFTER 5 DAYS OF INCUBATION. 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 Continuing with IV antibiotic. I signed consent with another physician for hemodialysis cath placed and also other procedure. Patient had no family member. Status post HD today and tolerate it. Continuing with ventilation support Continuing with cefepime and vancomycin Continuing with TPN Plan discussed with: Other (RN) Date of Service: Feb 24, 2024 Billing Provider: DALE ROBERTSON MD Common Visit Codes: [id number] INP/OBS CARE(HIGH) DALE ROBERTSON MD Feb 24, 2024 11:13
--- NOTE | 2024-02-24 14:20 | DVHPN2 ---
Progress Note Date Seen: Feb 24, 2024 Medical Necessity Reason Pt with a Central, PICC or Fol: Yes The following are medically ne: Central Line, Roblero Catheter Reason for roblero catheter: Strict I&O Subjective Patient reports: Other (no events) Review of Systems: Deferred Objective vital signs Vital Sign Date Time Temp Pulse Resp B/P (MAP) Pulse Ox O2 Delivery O2 Flow Rate FiO2 02/24/24 13:57 50 26 138/54 (82) 91 60 02/24/24 12:00 Mechanical Ventilator+ 02/24/24 08:00 98.3 98.3 Total Intake and Output 02/23/24 02/23/24 02/24/24 15:00 23:00 07:00 Intake Total 297.72 ml 357.28 ml 419.75 ml Output Total 775 ml 1200 ml Balance 297.72 ml -417.72 ml -780.25 ml medications Current Medications Medications Dose Ordered Sig/Theodora Route Start Time Stop Time Status Last Admin Dose Admin Midazolam HCl 50 ml @ 1 mls/hr Q24H IV 02/11/24 09:15 02/20/24 17:30 1 MLS/HR Sodium Chloride 10 ml Q8HR IV 02/11/24 14:00 02/24/24 05:30 10 ML Fentanyl Citrate 250 ml @ 2.5 mls/hr Q24H IV 02/11/24 10:15 02/23/24 23:42 15 MLS/HR Norepinephrine Bitartrate 250 ml @ 3.75 mls/hr Q24H IV 02/11/24 18:15 02/19/24 09:54 3.75 MLS/HR Atorvastatin Calcium 40 mg HS PO 02/12/24 22:00 02/23/24 21:18 40 MG Pantoprazole Sodium 40 mg DAILY IV 02/13/24 10:00 02/24/24 09:45 40 MG Lactulose 30 ml Q8HR PO 02/13/24 12:00 02/24/24 05:29 30 ML Enteral Nutritional Formula 1,000 ml 45ML/HR GT 02/16/24 12:45 02/24/24 09:44 1,000 ML Acetylcysteine 200 mg Q8HR NEB 02/18/24 22:00 02/24/24 13:57 200 MG Albuterol 2.5 mg Q8HR NEB 02/18/24 22:00 02/24/24 13:57 2.5 MG Vancomycin HCl 0 ml @ 0 mls/hr UD IV 02/18/24 17:45 Diagnostic Test (Pha) 1 strip Q6HR 02/20/24 12:00 02/24/24 11:37 1 STRIP Insulin Human Regular Q6HR SC 02/20/24 12:00 02/24/24 11:41 2 UNITS Dextrose 50 ml UD PRN IV 02/20/24 08:45 Heparin Sodium (Porcine) 5,000 units Q12HR SC 02/20/24 10:00 02/24/24 10:04 5,000 UNITS Cefepime/Dextrose 50 ml @ 12.5 mls/hr Q24H IV 02/22/24 08:00 02/24/24 07:56 12.5 MLS/HR Dopamine HCl/ Dextrose 250 ml @ 11.625 mls/ hr [id number] IV 02/21/24 13:00 02/21/24 13:45 11.625 MLS/HR Furosemide 100 mg/ Sodium Chloride 110 ml @ 11 mls/hr Q10H IV 02/21/24 13:15 02/24/24 05:30 11 MLS/HR Propofol 100 ml @ 3.72 mls/hr Q24H IV 02/21/24 21:00 02/24/24 09:44 18.6 MLS/HR Hydralazine HCl 10 mg Q6HP PRN IV 02/24/24 12:45 Artificial Tears 1 drop Q4HR EACHEYE 02/24/24 16:00 Aspirin 81 mg DAILY PO 02/25/24 10:00 Examination: GENERAL:Abnormal, MSK:Abnormal (edema ), SKIN:Abnormal, NEURO:Abnormal laboratory and microbiology Laboratory Tests 02/24/24 03:00 02/23/24 03:19 Test 02/24/24 03:00 Range/Units Serum Glucose 112 H 74-106 mg/dL Microbiology Date/Time Source Procedure Growth Status 02/19/24 10:50 Bronchial Washings Gram Stain - Final Complete 02/19/24 10:50 Respiratory Culture - Final Methicillin Resistant S.aureus Complete 02/14/24 12:04 Urine - [place] Urine Culture - Final Complete 02/12/24 13:30 Blood Blood Culture - Final NO GROWTH AFTER 5 DAYS OF INCUBATION. Complete 02/11/24 13:06 Nose MRSA Screen - Final Complete Problem List/Assessment/Plan Problem List/Assessment/Plan Assessment/Plan Acute kidney injury likely ATN due to hypotension + vancotoxicity Acute CVA no previous ckd acute respiratory failure with ARDS septic shock due to PNA bradycardia hypervolemic recs given worsening of renal function will initiate [employer] avoid hypotension Plan discussed with: Other My Orders My Orders Orders - DEMIAN DE LA TORRE MD Procedure Category Date Status Time Communication Order ORDERS 02/23/24 Transmitted 15:52 Hemodialysis Orders ORDERS 02/24/24 Transmitted 14:15 Dialysis Nursing TELLY 02/24/24 Transmitted Message 14:15 Heparin Sodium PHA 02/24/24 Transmitted (Porcine) 14:15 Heparin Sodium PHA 02/24/24 Transmitted (Porcine) 14:15 Heparin Sodium PHA 02/24/24 Transmitted (Porcine) 14:15 Document Fluid Input TELLY 02/24/24 Transmitted And Outpu 14:15 Dietary Evaluation Review Comments: 1) Recommend CCHO-60, Cardiac 2gNa LoFat LoCholesterol diet when medically feasible. 2) If GI accessible but PO feeding is not an option, consider glucerna 1.2 @45ml/hr. In 24 hrs, pt will be receiving 65g protein and 1296 kcal.Adj and increase infusion rate as tolerated. 3) If NPO > 7 days and GI is not accesible, consider TPN to support 75% of her energy and protein needs. Expected Outcomes/Goals: Gradual weight loss, improved glucose DEMIAN DE LA TORRE MD Feb 24, 2024 14:20
[2024-02-24] MEDS: ARTIFICIAL TEARS 15ml EACHEYE SCH (16:00)
--- NOTE | 2024-02-24 18:04 | DVHPN2 ---
Consult Progress Note Date Seen: Feb 24, 2024 Subjective Other Systems: Notified of transient atrial fibrillation with RVR Objective vital signs Vital Sign Date Time Temp Pulse Resp B/P (MAP) Pulse Ox O2 Delivery O2 Flow Rate FiO2 02/24/24 16:07 52 29 129/55 (79) 94 45 02/24/24 16:00 Mechanical Ventilator+ 02/24/24 12:00 98.2 98.2 Total Intake and Output 02/23/24 02/23/24 02/24/24 15:00 23:00 07:00 Intake Total 297.72 ml 357.28 ml 419.75 ml Output Total 775 ml 1200 ml Balance 297.72 ml -417.72 ml -780.25 ml medications Current Medications Medications Dose Ordered Sig/Theodora Route Start Time Stop Time Status Last Admin Dose Admin Midazolam HCl 50 ml @ 1 mls/hr Q24H IV 02/11/24 09:15 02/20/24 17:30 1 MLS/HR Sodium Chloride 10 ml Q8HR IV 02/11/24 14:00 02/24/24 14:41 10 ML Fentanyl Citrate 250 ml @ 2.5 mls/hr Q24H IV 02/11/24 10:15 02/24/24 15:07 15 MLS/HR Norepinephrine Bitartrate 250 ml @ 3.75 mls/hr Q24H IV 02/11/24 18:15 02/19/24 09:54 3.75 MLS/HR Atorvastatin Calcium 40 mg HS PO 02/12/24 22:00 02/23/24 21:18 40 MG Pantoprazole Sodium 40 mg DAILY IV 02/13/24 10:00 02/24/24 09:45 40 MG Lactulose 30 ml Q8HR PO 02/13/24 12:00 02/24/24 05:29 30 ML Enteral Nutritional Formula 1,000 ml 45ML/HR GT 02/16/24 12:45 02/24/24 09:44 1,000 ML Acetylcysteine 200 mg Q8HR NEB 02/18/24 22:00 02/24/24 13:57 200 MG Albuterol 2.5 mg Q8HR NEB 02/18/24 22:00 02/24/24 13:57 2.5 MG Vancomycin HCl 0 ml @ 0 mls/hr UD IV 02/18/24 17:45 Diagnostic Test (Pha) 1 strip Q6HR 02/20/24 12:00 02/24/24 11:37 1 STRIP Insulin Human Regular Q6HR SC 02/20/24 12:00 02/24/24 11:41 2 UNITS Dextrose 50 ml UD PRN IV 02/20/24 08:45 Heparin Sodium (Porcine) 5,000 units Q12HR SC 02/20/24 10:00 02/24/24 10:04 5,000 UNITS Cefepime/Dextrose 50 ml @ 12.5 mls/hr Q24H IV 02/22/24 08:00 02/24/24 07:56 12.5 MLS/HR Dopamine HCl/ Dextrose 250 ml @ 11.625 mls/ hr [id number] IV 02/21/24 13:00 02/21/24 13:45 11.625 MLS/HR Furosemide 100 mg/ Sodium Chloride 110 ml @ 11 mls/hr Q10H IV 02/21/24 13:15 02/24/24 15:02 11 MLS/HR Propofol 100 ml @ 3.72 mls/hr Q24H IV 02/21/24 21:00 02/24/24 15:02 18.6 MLS/HR Hydralazine HCl 10 mg Q6HP PRN IV 02/24/24 12:45 Artificial Tears 1 drop Q4HR EACHEYE 02/24/24 16:00 Aspirin 81 mg DAILY PO 02/25/24 10:00 Examination: GENERAL:Abnormal, LUNGS:Abnormal (Mchanically ventilated. 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 Sands) * Echocardiogram revealed: Normal left ventricular size and dimension. Normal left ventricular systolic function estimated ejection fraction 60%. There is a grade 1 diastolic dysfunction. Normal right ventricular size and dimension. Normal right ventricular systolic function. Normal biatrial size and dimension. The aortic valve is thickened and sclerotic there is [id number] aortic valve stenosis with a peak gradient of 33 and mean gradient of 18 mmHg. The mitral valve is mildly thickened there is mild mitral valve regurgitation. There is mild tricuspid valve regurgitation. The pulmonary valve is grossly normal. No pericardial effusion. * Cardiorenal syndrome Type IV: Continue preload reduction with Lasix drip and hemodialysis per renal team. Sanders catheter in place. Monitor I&Os. * Transient paroxysmal atrial fibrillation: hold BB and antiarrhythmic given sinus bradycardia, initiate when appropriate. TSH level WNL. [id number] Score 7. HAS-BLED 4. Initiate full anticoagulation, therapeutic Lovenox renal dose, and transition to NOAC therapy when appropriate. Maintain potassium >4 and Mg>2. Discontinue Dopamine drip. * Infrarenal AAA: refer for endovascular aneurysm repair once stable. Continue aggressive blood pressure control with a systolic blood pressure <140 mmHg. * PAD with moderate left proximal ICA stenosis: single-antiplatelet therapy and lipid-lowering agent. * Continue antibiotics per hospitalist given pneumonia * Ventilation settings per Pulmonology team * Nephrology recommendations including HD * Monitor ECG changes and notify Thank you for allowing us to participate in this patient's care. Please call if you have any questions or concerns. Critical care time: 40 min. This medical document was created using an electronic medical record system with voice recognition software and computerized dictation system. Although this document has been carefully reviewed, there might still be some phonetic and typographical errors. Occasional wrong-word or ``sound-alike substitutions may have occurred due to the inherent limitations of voice recognition software. These areas are purely typographical due to imperfections of the software programs and do not reflect any compromise in the patient's medical care. Please read the chart carefully and recognize, using context, where these substitutions have occurred. Plan discussed with: Other Dietary Evaluation Review Comments: 1) Recommend CCHO-60, Cardiac 2gNa LoFat LoCholesterol diet when medically feasible. 2) If GI accessible but PO feeding is not an option, consider glucerna 1.2 @45ml/hr. In 24 hrs, pt will be receiving 65g protein and 1296 kcal.Adj and increase infusion rate as tolerated. 3) If NPO > 7 days and GI is not accesible, consider TPN to support 75% of her energy and protein needs. Expected Outcomes/Goals: Gradual weight loss, improved glucose Date of Service: Feb 24, 2024 Billing Provider: NATALIIA SANDS MD Cardiology Common Codes: [id number] CARE 30-74 MIN SHARDA YU COPYWRITING INTERN Feb 24, 2024 18:04
[2024-02-24] MEDS: POTASSIUM CHL 20MEQ/100ML 100 ML IV ONE (18:46)
--- NOTE | 2024-02-24 20:53 | DVHPN2 ---
Progress Note - Dictate Date Seen: Feb 24, 2024 Medical Necessity Reason Pt with a Central, PICC or Fol: Yes The following are medically ne: Central Line, Roblero Catheter Reason for roblero catheter: Strict I&O Subjective Patient seen and examined at bedside. Sedated, intubated on mechanical ventilator. Overnight events reviewed. vital signs Vital Sign Date Time Temp Pulse Resp B/P (MAP) Pulse Ox O2 Delivery O2 Flow Rate FiO2 02/24/24 20:27 145/68 02/24/24 20:00 53 26 98 45 02/24/24 18:20 Mechanical Ventilator+ 02/24/24 12:00 98.2 98.2 Total Intake and Output 02/23/24 02/23/24 02/24/24 15:00 23:00 07:00 Intake Total 297.72 ml 357.28 ml 419.75 ml Output Total 775 ml 1200 ml Balance 297.72 ml -417.72 ml -780.25 ml medications Current Medications Medications Dose Ordered Sig/Theodora Route Start Time Stop Time Status Last Admin Dose Admin Midazolam HCl 50 ml @ 1 mls/hr Q24H IV 02/11/24 09:15 02/20/24 17:30 1 MLS/HR Sodium Chloride 10 ml Q8HR IV 02/11/24 14:00 02/24/24 14:41 10 ML Fentanyl Citrate 250 ml @ 2.5 mls/hr Q24H IV 02/11/24 10:15 02/24/24 15:07 15 MLS/HR Norepinephrine Bitartrate 250 ml @ 3.75 mls/hr Q24H IV 02/11/24 18:15 02/19/24 09:54 3.75 MLS/HR Atorvastatin Calcium 40 mg HS PO 02/12/24 22:00 02/23/24 21:18 40 MG Pantoprazole Sodium 40 mg DAILY IV 02/13/24 10:00 02/24/24 09:45 40 MG Lactulose 30 ml Q8HR PO 02/13/24 12:00 02/24/24 05:29 30 ML Enteral Nutritional Formula 1,000 ml 45ML/HR GT 02/16/24 12:45 02/24/24 09:44 1,000 ML Acetylcysteine 200 mg Q8HR NEB 02/18/24 22:00 02/24/24 13:57 200 MG Albuterol 2.5 mg Q8HR NEB 02/18/24 22:00 02/24/24 13:57 2.5 MG Vancomycin HCl 0 ml @ 0 mls/hr UD IV 02/18/24 17:45 Diagnostic Test (Pha) 1 strip Q6HR 02/20/24 12:00 02/24/24 17:43 1 STRIP Insulin Human Regular Q6HR SC 02/20/24 12:00 02/24/24 11:41 2 UNITS Dextrose 50 ml UD PRN IV 02/20/24 08:45 Cefepime/Dextrose 50 ml @ 12.5 mls/hr Q24H IV 02/22/24 08:00 02/24/24 07:56 12.5 MLS/HR Furosemide 100 mg/ Sodium Chloride 110 ml @ 11 mls/hr Q10H IV 02/21/24 13:15 02/24/24 15:02 11 MLS/HR Propofol 100 ml @ 3.72 mls/hr Q24H IV 02/21/24 21:00 02/24/24 20:27 18.6 MLS/HR Hydralazine HCl 10 mg Q6HP PRN IV 02/24/24 12:45 Artificial Tears 1 drop Q4HR EACHEYE 02/24/24 16:00 Aspirin 81 mg DAILY PO 02/25/24 10:00 Enoxaparin Sodium 120 mg DAILY SC 02/25/24 10:00 objective Gen.: Patient lying in bed in medical ICU. Sedated, intubated on mechanical ventilator. Head: Normocephalic, atraumatic. Eyes: PERRLA. Ears: Normal external anatomy. Throat: Endotracheal tube and orogastric tube in place. Neck: Supple, trachea midline. Chest: Transmitted breath sounds bilaterally. Decreased air entry bilaterally. No wheezing. Bibasilar crackles. Cardiovascular: Positive S1, positive S2. Regular rate and rhythm. Abdomen: Positive bowel sounds in all 4 quadrants. Soft, nontender, nondistended. : Roblero in place. Normal external genitalia. Rectal: Deferred. Skin: Warm, dry. Intact. Extremities: 2+ radial pulses bilaterally. No lower extremity edema. Neuro: Sedated. laboratory and microbiology Laboratory Tests 02/24/24 03:00 02/23/24 03:19 Test 02/24/24 03:00 Range/Units Serum Glucose 112 H 74-106 mg/dL Assessment/Plan Impression: Acute hypoxic respiratory failure secondary to pneumonia and CHF exacerbation Acute on chronic hypercarbic respiratory failure Acute respiratory distress syndrome On mechanical ventilator Pneumonia, likely Gram-negative CHF exacerbation Pulmonary edema Obesity with a BMI of 32.6 Acute stroke Events: Remains on vent support On assist control with a respiratory rate of 26, tidal volume 550, PEEP of 5, FiO2 at 65%. Increase PEEP to 10. S/p bronchoscopy w/ bronchoalveolar lavage and central line placement on 02/22. Please see separate procedure notes for details. ABG reviewed, notable for acidemia. CXR demonstrates pulmonary vascular congestion, devices in place. S/p left IJ Carlos for hemodialysis access. Nephrology plans HD today Sedated on Fentanyl, Propofol drip. Continue antibiotics - cefepime Taper sedation as tolerated. Daily CPAP Diurese w/ Lasix drip at 10 mg/hr Monitor renal function Monitor electrolytes. Supplement as necessary. Monitor ins and outs Tube feeds for nutritional support Labs and imaging reviewed. Rest of plan as noted below. Plan: s/p intubation on mechanical ventilator CT head notable for hypodense pretty 10 x 8 mm in size in the simon with the left side from strenuous for acute infarct. Chronic periventricular ischemic changes. Cerebral and cerebellar atrophy likely age-related. Recommend neurology evaluation. CXR image and report reviewed. Devices in place. Cardiomegaly. Small left pleural effusion. Diffuse interstitial opacities likely pulmonary edema. Initial ABG was notable for acute on chronic hypercarbic respiratory failure, PaCO2 63.4 mmHg Repeat ABG reviewed. Compensated. Poor PF ratio. S/p bronchoscopy with right middle lobe bronchoalveolar lavage on 02/15/24. See procedure note for details. Vent settings; On assist control with a respiratory rate of 26, tidal volume 550, PEEP of 10, FiO2 at 65%. Titrate FIO2 to keep O2 saturation above 92%. VAP bundle Daily ABG and CXR while intubated. Sedate for ventilator synchrony Pressors as necessary for hemodynamic support. Titrate to keep MAP above 65 mmHg/SBP above 90 mmHg. Continue antibiotics. F/u cultures. Diurese to euvolemia. Monitor ins/outs. On Lasix BID. Monitor renal function due to acute kidney injury. Monitor electrolytes. Supplement as necessary. Nutritional support. Accucheks, ISS. GI/DVT prophylaxis. Condition: Critical Prognosis: Poor given multiple comorbidities. Rest of plan per hospitalist and other consultants. A total of 35 minutes of critical care time was spent reviewing the patient record, examining the patient, making a diagnostic and therapeutic plan, discussing this plan with the medical personnel, following up on diagnostic studies and following the patient for clinical stability excluding any and all procedures. At least 50% of this time was spent in direct, [id number] contact. Thank you GIORGI Huffman for allowing me to participate in this patient's care. Further recommendations will depend on patient's clinical course. Please do not hesitate to contact me if you have any questions or concerns. This medical document was created using an electronic medical record system with [employer] dictation system. Although this document has been carefully reviewed, there may still be some phonetic and typographical errors. These areas are purely typographical due to imperfections of the software programs, and do not reflect any compromise in the patient's medical care. Dietary Evaluation Review Comments: 1) Recommend CCHO-60, Cardiac 2gNa LoFat LoCholesterol diet when medically feasible. 2) If GI accessible but PO feeding is not an option, consider glucerna 1.2 @45ml/hr. In 24 hrs, pt will be receiving 65g protein and 1296 kcal.Adj and increase infusion rate as tolerated. 3) If NPO > 7 days and GI is not accesible, consider TPN to support 75% of her energy and protein needs. Expected Outcomes/Goals: Gradual weight loss, improved glucose Plan discussed with: Other (JESUS Zuniga) Critical Care Time(min): 35 ALEXANDER SCHWAB MD Feb 24, 2024 20:53
[2024-02-24] MEDS: hydrALAZINE HCL 20 MG/ML VL IV PRN (21:33)
[2024-02-25] VITALS (94 sets, daily range): BP systolic 114–179; BP diastolic 53–74; PULSE 59–98; RESP 18–28; TEMP 98.1–99.7; O2SAT 89–98
[2024-02-25 03:48] LABS: Hematocrit 39.4 % (41.0-53.0); Hemoglobin 13.3 g/dL (13.5-17.5); Mean Corpuscular Hemoglobin 29.7 pg (28.0-32.0); Mean Corpuscular Hgb Conc. 33.8 g/dL (32.0-36.0); Mean Corpuscular Volume 87.7 fL (80.0-100.0); Platelet Count (auto) 356 10^3/uL (140-450); Red Blood Cells 4.49 10^6/uL (4.5-5.90); Red Cell Distribution Width 14.8 % (11.8-14.3); White Blood Cell 15.3 10^3/uL (4.4-10.8)
[2024-02-25 03:53] LABS: Chloride 101 mmol/L (98-107); Potassium 3.9 mmol/L (3.5-5.1); Sodium 140 mmol/L (136-145)
[2024-02-25 03:54] LABS: Anion Gap 19 (5-15); Calcium 8.6 mg/dL (8.7-10.4); Carbon Dioxide 20 mmol/L (20-31)
[2024-02-25 03:59] LABS: BUN/Creatinine Ratio 20.4 (10.0-20.0); Basophils % (manual) 0 (0.0-2.0); Blast Cells 0; Eosinophils % (manual) 0 (0-7); Glucose 124 mg/dL (74-106); Promyelocytes % 0; Reactive Lymphocytes 0
[2024-02-25 04:14] LABS: Blood Urea Nitrogen 105 mg/dL (9-23)
--- NOTE | 2024-02-25 04:59 | DVH ---
CHEST RADIOGRAPH Indication: patient intubated Technique: Single frontal view of the chest was obtained Comparison: XY CHEST PORTABLE on DOS: 02/24/24 FINDINGS: Lines and Tubes: The endotracheal tube terminates 8.6 cm above the [place]. Right central venous cath eter terminates in the superior vena cava. Left central venous catheter terminates in the superior v kimberly cava. Lungs: Pulmonary congestion. No focal consolidation. Pleura: There may be bilateral pleural effusions, unchanged. No pneumothorax. Cardiomediastinal contours: Unremarkable Bones: No acute osseous abnormality. IMPRESSION: 1. Endotracheal tube terminates 8.6 cm above the elmira. Consider advancement by approximately 2-3 c m. 2. Pulmonary congestion and possible bilateral pleural effusions, unchanged.
[2024-02-25 05:47] LABS: Band Neutrophils % (manual) 3; Lymphocytes % (manual) 9 (10.0-50.0); Metamyelocytes % 1; Monocytes % (manual) 7 (0-12); Myelocytes % 1
[2024-02-25 05:48] LABS: Platelet Estimate Adequate
[2024-02-25 06:38] LABS: Base Excess -6.4 mmol/L (-2.0-3.0)
--- NOTE | 2024-02-25 08:52 | MEDREC ---
[facility] Intervention Section I [facility] Intervention: Review courses of therapy (BRONCHIAL WASHING CULTURE SHOWS A FEW GROWTHS OF MRSA AND YEAST, NOT VIRY ALBICANS. PLEASE CONSIDER ADDING ANTIFUNGAL IF PATIENT'S CONDITION IS NOT IMPROVING ) JANE YU PHARMACIST Feb 25, 2024 08:52
[2024-02-25] MEDS: ENOXAPARIN SOD 120 MG/0.8 ML SYRINGE SC SCH (08:57)
[2024-02-25] MEDS: ASPirin-EC 81 mg tab PO SCH (08:58)
[2024-02-25] MEDS: CATHFLO ACTIVASE (ALTEPLASE) 2 MG VIAL IV ONE (10:00)
[2024-02-25 10:15] LABS: Base Excess -6.2 mmol/L (-2.0-3.0)
--- NOTE | 2024-02-25 11:19 | DVHPN2 ---
Subjective Patient seen and examined at bedside. Remained unchanged overnight. Still intubated. Reviewed: Care Plan, H&P, Labs, Medications, Previous Orders, Radiology Changes from previous H/P or p: No Changes Respiratory: Shortness of breath Objective Vitals Vital Signs Date Time Temp Pulse Resp B/P (MAP) Pulse Ox O2 Delivery O2 Flow Rate FiO2 02/25/24 10:15 60 26 135/54 (81) 94 02/25/24 10:00 40 02/25/24 10:00 Mechanical Ventilator+ 02/25/24 08:15 98.1 98.1 Intake/Output Intake and Output 02/25/24 07:00 Intake Total 1770.26 ml Output Total 1150 ml Balance 620.26 ml Intake Oral 90 ml IV Total 1130.26 ml Tube Feeding 550 ml Output Urine Total 1150 ml # Bowel Movements 3 General Appearance: Other (intubated and sedated) HEENT: PERRLA, Other (small pupils no reaction to light) Lungs: Clear to auscultation Cardiovascular: Regular rate, Normal S1, Normal S2 Abdomen: Normal bowel sounds, Soft, No tenderness, No hepatospenomegaly, Other (obese) Extremities: No edema Neuro: Other (sedated // intubated//no response top noxious stimulii/per nursing at sedation breaks has cough and gag reflex) Psych/Mental Status: Other (Sedated and intubated, unable to exam) Medications Current Medications Medications Dose Ordered Sig/Theodora Route Start Time Stop Time Status Last Admin Dose Admin Midazolam HCl 50 ml @ 1 mls/hr Q24H IV 02/11/24 09:15 02/20/24 17:30 1 MLS/HR Sodium Chloride 10 ml Q8HR IV 02/11/24 14:00 02/25/24 06:19 10 ML Fentanyl Citrate 250 ml @ 2.5 mls/hr Q24H IV 02/11/24 10:15 02/25/24 05:16 20 MLS/HR Norepinephrine Bitartrate 250 ml @ 3.75 mls/hr Q24H IV 02/11/24 18:15 02/19/24 09:54 3.75 MLS/HR Atorvastatin Calcium 40 mg HS PO 02/12/24 22:00 02/24/24 21:34 40 MG Pantoprazole Sodium 40 mg DAILY IV 02/13/24 10:00 02/25/24 08:58 40 MG Lactulose 30 ml Q8HR PO 02/13/24 12:00 02/24/24 05:29 30 ML Enteral Nutritional Formula 1,000 ml 45ML/HR GT 02/16/24 12:45 02/25/24 00:57 1,000 ML Acetylcysteine 200 mg Q8HR NEB 02/18/24 22:00 02/25/24 06:03 200 MG Albuterol 2.5 mg Q8HR NEB 02/18/24 22:00 02/25/24 06:03 2.5 MG Vancomycin HCl 0 ml @ 0 mls/hr UD IV 02/18/24 17:45 Diagnostic Test (Pha) 1 strip Q6HR 02/20/24 12:00 02/25/24 06:20 1 STRIP Insulin Human Regular Q6HR SC 02/20/24 12:00 02/25/24 06:20 2 UNITS Dextrose 50 ml UD PRN IV 02/20/24 08:45 Cefepime/Dextrose 50 ml @ 12.5 mls/hr Q24H IV 02/22/24 08:00 02/25/24 08:00 12.5 MLS/HR Furosemide 100 mg/ Sodium Chloride 110 ml @ 11 mls/hr Q10H IV 02/21/24 13:15 02/25/24 09:02 11 MLS/HR Propofol 100 ml @ 3.72 mls/hr Q24H IV 02/21/24 21:00 02/25/24 08:57 26.04 MLS/HR Hydralazine HCl 10 mg Q6HP PRN IV 02/24/24 12:45 02/24/24 21:33 10 MG Artificial Tears 1 drop Q4HR EACHEYE 02/24/24 16:00 Aspirin 81 mg DAILY PO 02/25/24 10:00 02/25/24 08:58 81 MG Enoxaparin Sodium 120 mg DAILY SC 02/25/24 10:00 02/25/24 08:57 120 MG Metoprolol Tartrate 25 mg DAILY PO 02/25/24 12:00 Laboratory Results Laboratory Tests 02/25/24 03:26 Chemistry Test 02/25/24 03:26 Calcium Level 8.6 mg/dL (8.7-10.4) L Urinalysis Test 02/20/24 14:57 Urine Color Brown (Yellow) H Urine Clarity Ex.turbid (Clear) Urine pH 5.5 (5.0-9.0) Urine Specific [place] 1.014 (1.001-1.035) Urine Protein 2+ (Negative) H Urine Ketones Negative (Negative) Urine Blood 3+ /uL (Negative) H Urine Nitrite Negative (Negative) Urine Bilirubin Negative (Negative) Urine Urobilinogen Normal mg/dL (Negative) Urine Leukocyte Esterase 1+ /uL (Negative) Urine RBC 124 /hpf (0 - 3) Urine WBC 107 /hpf (0 - 3) Urine Squamous Epithelial Cells Few /hpf (<5) Urine Bacteria Few /hpf (None Seen) H Urine Mucus Few (None Seen) Urine Creatinine 85.51 mg/dL (30.0-125.0) Urine Sodium 15 mmol/L (40-220) L Urine Glucose Normal mg/dL (Normal) Blood Gas Results Test 02/25/24 06:30 02/25/24 10:11 Arterial Blood pH 7.297 (7.350-7.450) 7.317 (7.350-7.450) FiO2 % 40.0 40.0 Microbiology Microbiology Date/Time Source Procedure Growth Status 02/19/24 10:50 Bronchial Washings Gram Stain - Final Complete 02/19/24 10:50 Respiratory Culture - Final Methicillin Resistant S.aureus Complete 02/14/24 12:04 Urine - [place] Urine Culture - Final Complete 02/12/24 13:30 Blood Blood Culture - Final NO GROWTH AFTER 5 DAYS OF INCUBATION. 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 Continuing with IV antibiotic. I signed consent with another physician for hemodialysis cath placed and also other procedure. Patient had no family member. Status post HD today and tolerate it. Continuing with ventilation support Continuing with cefepime and vancomycin Continuing with TPN Discuss with Dr. Canales, elevator installer regarding to potential of extubated versus PEG and trach. Consult for PEG and trach if still remained intubated in the couple day Prognosis poor Plan discussed with: Other (RN) My Orders Orders - DALE ROBERTSON MD Procedure Category Date Status Time * Cardiology Consult CONS 02/24/24 Transmitted 12:39 Hydralazine Injection PHA 02/24/24 In Process (Apresoline Inject 12:45 Artificial Tear 15ml PHA 02/24/24 In Process Opthalmic (Tears Na 16:00 Date of Service: Feb 25, 2024 Billing Provider: DALE ROBERTSON MD Common Visit Codes: [id number] INP/OBS CARE(HIGH) DALE ROBERTSON MD Feb 25, 2024 11:18
--- NOTE | 2024-02-25 11:46 | DVHPNRES ---
Progress Note Date Seen: Feb 25, 2024 Resident Creating Document: ALEXANDER SCHWAB RESIDENT Has the PT tested + for MRSA If YES, has PT been informed?: No Medical Necessity Reason Pt with a Central, PICC or Fol: Yes The following are medically ne: Central Line, Roblero Catheter Reason for roblero catheter: Strict I&O Subjective Review of Systems Pt seen and examined at bedside. On vent Overnight events reviewed. Objective vital signs Vital Sign Date Time Temp Pulse Resp B/P (MAP) Pulse Ox O2 Delivery O2 Flow Rate FiO2 02/25/24 10:15 60 26 135/54 (81) 94 02/25/24 10:00 40 02/25/24 10:00 Mechanical Ventilator+ 02/25/24 08:15 98.1 98.1 Total Intake and Output 02/24/24 02/24/24 02/25/24 15:00 23:00 07:00 Intake Total 356.8 ml 594.18 ml 876.32 ml Output Total 875 ml 275 ml Balance 356.8 ml -280.82 ml 601.32 ml medications Current Medications Medications Dose Ordered Sig/Theodora Route Start Time Stop Time Status Last Admin Dose Admin Midazolam HCl 50 ml @ 1 mls/hr Q24H IV 02/11/24 09:15 02/20/24 17:30 1 MLS/HR Sodium Chloride 10 ml Q8HR IV 02/11/24 14:00 02/25/24 06:19 10 ML Fentanyl Citrate 250 ml @ 2.5 mls/hr Q24H IV 02/11/24 10:15 02/25/24 05:16 20 MLS/HR Norepinephrine Bitartrate 250 ml @ 3.75 mls/hr Q24H IV 02/11/24 18:15 02/19/24 09:54 3.75 MLS/HR Atorvastatin Calcium 40 mg HS PO 02/12/24 22:00 02/24/24 21:34 40 MG Pantoprazole Sodium 40 mg DAILY IV 02/13/24 10:00 02/25/24 08:58 40 MG Lactulose 30 ml Q8HR PO 02/13/24 12:00 02/24/24 05:29 30 ML Enteral Nutritional Formula 1,000 ml 45ML/HR GT 02/16/24 12:45 02/25/24 00:57 1,000 ML Acetylcysteine 200 mg Q8HR NEB 02/18/24 22:00 02/25/24 06:03 200 MG Albuterol 2.5 mg Q8HR NEB 02/18/24 22:00 02/25/24 06:03 2.5 MG Vancomycin HCl 0 ml @ 0 mls/hr UD IV 02/18/24 17:45 Diagnostic Test (Pha) 1 strip Q6HR 02/20/24 12:00 02/25/24 06:20 1 STRIP Insulin Human Regular Q6HR SC 02/20/24 12:00 02/25/24 06:20 2 UNITS Dextrose 50 ml UD PRN IV 02/20/24 08:45 Cefepime/Dextrose 50 ml @ 12.5 mls/hr Q24H IV 02/22/24 08:00 02/25/24 08:00 12.5 MLS/HR Furosemide 100 mg/ Sodium Chloride 110 ml @ 11 mls/hr Q10H IV 02/21/24 13:15 02/25/24 09:02 11 MLS/HR Propofol 100 ml @ 3.72 mls/hr Q24H IV 02/21/24 21:00 02/25/24 08:57 26.04 MLS/HR Hydralazine HCl 10 mg Q6HP PRN IV 02/24/24 12:45 02/24/24 21:33 10 MG Artificial Tears 1 drop Q4HR EACHEYE 02/24/24 16:00 Aspirin 81 mg DAILY PO 02/25/24 10:00 02/25/24 08:58 81 MG Enoxaparin Sodium 120 mg DAILY SC 02/25/24 10:00 02/25/24 08:57 120 MG Metoprolol Tartrate 25 mg DAILY PO 02/25/24 12:00 Examination Gen.: Patient lying in bed in medical ICU. Sedated, intubated on mechanical ventilator. Head: Normocephalic, atraumatic. Eyes: PERRLA. Ears: Normal external anatomy. Throat: Endotracheal tube and orogastric tube in place. Neck: Supple, trachea midline. Chest: Transmitted breath sounds bilaterally. Decreased air entry bilaterally. No wheezing. Bibasilar crackles. Cardio vascular: Positive S1, positive S2. Regular rate and rhythm. Abdomen: Positive bowel sounds in all 4 quadrants. Soft, nontender, nondistended. : Roblero in place. Normal external genitalia. Rectal: Deferred Skin: Warm, dry. Intact. Extremities: 2+ radial pulses bilaterally. No lower extremity edema. Neuro: Sedated. laboratory and microbiology Laboratory Tests 02/25/24 03:26 Test 02/25/24 03:26 Range/Units Serum Glucose 124 H 74-106 mg/dL Microbiology Date/Time Source Procedure Growth Status 02/19/24 10:50 Bronchial Washings Gram Stain - Final Complete 02/19/24 10:50 Respiratory Culture - Final Methicillin Resistant S.aureus Complete 02/14/24 12:04 Urine - Roblero Port Urine Culture - Final Complete 02/12/24 13:30 Blood Blood Culture - Final NO GROWTH AFTER 5 DAYS OF INCUBATION. 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 Sands) * Echocardiogram revealed: Normal left ventricular size and dimension. Normal left ventricular systolic function estimated ejection fraction 60%. There is a grade 1 diastolic dysfunction. Normal right ventricular size and dimension. Normal right ventricular systolic function. Normal biatrial size and dimension. The aortic valve is thickened and sclerotic there is [id number] aortic valve stenosis with a peak gradient of 33 and mean gradient of 18 mmHg. The mitral valve is mildly thickened there is mild mitral valve regurgitation. There is mild tricuspid valve regurgitation. The pulmonary valve is grossly normal. No pericardial effusion. * Cardiorenal syndrome Type IV: Continue preload reduction with diuresis. Lasix drip per nephrology. Hemodialysis per renal team. Roblero catheter in place. Monitor I&Os. Monitor renal function, Nephrology recommendations appreciated. * Transient paroxysmal atrial fibrillation: hold BB and antiarrhythmic given sinus bradycardia, initiate when appropriate. TSH level WNL. [id number] Score 7. HAS-BLED 4. Initiate full anticoagulation, therapeutic Lovenox renal dose, and transition to NOAC therapy when appropriate. Maintain potassium >4 and Mg>2. OFF Dopamine drip since 02/22/24. * Infrarenal AAA: refer for endovascular aneurysm repair once stable. Continue aggressive blood pressure control with a systolic blood pressure <140 mmHg. * PAD with moderate left proximal ICA stenosis: single-antiplatelet therapy and lipid-lowering agent. * Continue antibiotics per hospitalist given pneumonia * Ventilation settings per Pulmonology team * Nephrology recommendations including HD * Monitor ECG changes and notify Thank you Dr Tera De Paz for allowing us to participate in this patient's care. Please call if you have any questions or concerns. Critical care time: 36 min. This medical document was created using an electronic medical record system with voice recognition software and computerized dictation system. Although this document has been carefully reviewed, there might still be some phonetic and typographical errors. Occasional wrong-word or ``sound-alike substitutions may have occurred due to the inherent limitations of voice recognition software. These areas are purely typographical due to imperfections of the software programs and do not reflect any compromise in the patient's medical care. Please read the chart carefully and recognize, using context, where these substitutions have occurred. Plan discussed with: Other (JESUS Garcia MD) Dietary Evaluation Review Comments: 1) Recommend CCHO-60, Cardiac 2gNa LoFat LoCholesterol diet when medically feasible. 2) If GI accessible but PO feeding is not an option, consider glucerna 1.2 @45ml/hr. In 24 hrs, pt will be receiving 65g protein and 1296 kcal.Adj and increase infusion rate as tolerated. 3) If NPO > 7 days and GI is not accesible, consider TPN to support 75% of her energy and protein needs. Expected Outcomes/Goals: Gradual weight loss, improved glucose Critical Care Time (mins): 36 Visit Coding Cardiology RES Date of Service: Feb 25, 2024 Billing Provider: NATALIIA SANDS MD, RICARDO RESIDENT Feb 25, 2024 11:46
[2024-02-25] MEDS: METOPROLOL TARTRATE 25 MG TAB PO SCH (12:11)
[2024-02-25] MEDS: AMIODARONE HCL 200 MG TAB PO ONE (12:11)
[2024-02-25] MEDS: NOREPINEPHRINE 8 MG/250ML KIT 250 ML IV SCH (16:45)
--- NOTE | 2024-02-25 18:55 | DVHPN2 ---
Progress Note Date Seen: Feb 25, 2024 Has the PT tested + for MRSA If YES, has PT been informed?: No Medical Necessity Reason Pt with a Central, PICC or Fol: Yes The following are medically ne: Central Line, Roblero Catheter Reason for roblero catheter: Strict I&O Subjective Patient reports: Other (Patient remains intubated) Review of Systems: Deferred Objective vital signs Vital Sign Date Time Temp Pulse Resp B/P (MAP) Pulse Ox O2 Delivery O2 Flow Rate FiO2 02/25/24 18:37 66 26 134/63 (86) 91 40 02/25/24 18:00 Mechanical Ventilator+ 02/25/24 14:30 98.3 98.3 Total Intake and Output 02/24/24 02/24/24 02/25/24 15:00 23:00 07:00 Intake Total 356.8 ml 594.18 ml 876.32 ml Output Total 875 ml 275 ml Balance 356.8 ml -280.82 ml 601.32 ml medications Current Medications Medications Dose Ordered Sig/Theodora Route Start Time Stop Time Status Last Admin Dose Admin Midazolam HCl 50 ml @ 1 mls/hr Q24H IV 02/11/24 09:15 02/20/24 17:30 1 MLS/HR Sodium Chloride 10 ml Q8HR IV 02/11/24 14:00 02/25/24 13:20 10 ML Atorvastatin Calcium 40 mg HS PO 02/12/24 22:00 02/24/24 21:34 40 MG Pantoprazole Sodium 40 mg DAILY IV 02/13/24 10:00 02/25/24 08:58 40 MG Lactulose 30 ml Q8HR PO 02/13/24 12:00 02/25/24 16:18 30 ML Enteral Nutritional Formula 1,000 ml 45ML/HR GT 02/16/24 12:45 02/25/24 00:57 1,000 ML Acetylcysteine 200 mg Q8HR NEB 02/18/24 22:00 02/25/24 13:39 200 MG Albuterol 2.5 mg Q8HR NEB 02/18/24 22:00 02/25/24 13:39 2.5 MG Vancomycin HCl 0 ml @ 0 mls/hr UD IV 02/18/24 17:45 Diagnostic Test (Pha) 1 strip Q6HR 02/20/24 12:00 02/25/24 18:03 1 STRIP Insulin Human Regular Q6HR SC 02/20/24 12:00 02/25/24 18:04 2 UNITS Dextrose 50 ml UD PRN IV 02/20/24 08:45 Cefepime/Dextrose 50 ml @ 12.5 mls/hr Q24H IV 02/22/24 08:00 02/25/24 08:00 12.5 MLS/HR Propofol 100 ml @ 3.72 mls/hr Q24H IV 02/21/24 21:00 02/25/24 15:24 26.04 MLS/HR Hydralazine HCl 10 mg Q6HP PRN IV 02/24/24 12:45 02/24/24 21:33 10 MG Artificial Tears 1 drop Q4HR EACHEYE 02/24/24 16:00 Aspirin 81 mg DAILY PO 02/25/24 10:00 02/25/24 08:58 81 MG Enoxaparin Sodium 120 mg DAILY SC 02/25/24 10:00 02/25/24 08:57 120 MG Metoprolol Tartrate 25 mg DAILY PO 02/25/24 12:00 Hold 02/25/24 12:11 25 MG Norepinephrine Bitartrate 250 ml @ 0.938 mls/ hr Q24H IV 02/25/24 16:45 Fentanyl Citrate 250 ml @ 2.5 mls/hr Q24H IV 02/25/24 19:00 UNV Examination: GENERAL:Abnormal, LUNGS:Abnormal, MSK:Abnormal, NEURO:Abnormal laboratory and microbiology Laboratory Tests 02/25/24 03:26 Test 02/25/24 03:26 Range/Units Serum Glucose 124 H 74-106 mg/dL Microbiology Date/Time Source Procedure Growth Status 02/19/24 10:50 Bronchial Washings Gram Stain - Final Complete 02/19/24 10:50 Respiratory Culture - Final Methicillin Resistant S.aureus Complete 02/14/24 12:04 Urine - Roblero Port Urine Culture - Final Complete 02/12/24 13:30 Blood Blood Culture - Final NO GROWTH AFTER 5 DAYS OF INCUBATION. Complete 02/11/24 13:06 Nose MRSA Screen - Final Complete Problem List/Assessment/Plan Problem List/Assessment/Plan Assessment/Plan Acute kidney injury likely ATN due to hypotension + vancotoxicity Acute CVA no previous ckd acute respiratory failure with ARDS septic shock due to PNA bradycardia hypervolemic recs dialysis today UF 3 L off Hold Lasix drip after finishing current bag Plan discussed with: Other My Orders My Orders Orders - DEMIAN DE LA TORRE MD Procedure Category Date Status Time Hepatitis B Surface LAB 02/25/24 In Process Antigen 11:17 Communication Order ORDERS 02/25/24 Verified 18:53 Dietary Evaluation Review Comments: 1) Recommend CCHO-60, Cardiac 2gNa LoFat LoCholesterol diet when medically feasible. 2) If GI accessible but PO feeding is not an option, consider glucerna 1.2 @45ml/hr. In 24 hrs, pt will be receiving 65g protein and 1296 kcal.Adj and increase infusion rate as tolerated. 3) If NPO > 7 days and GI is not accesible, consider TPN to support 75% of her energy and protein needs. Expected Outcomes/Goals: Gradual weight loss, improved glucose DEMIAN DE LA TORRE MD Feb 25, 2024 18:55
--- NOTE | 2024-02-25 21:15 | DVHPN2 ---
Progress Note - Dictate Date Seen: Feb 25, 2024 Has the PT tested + for MRSA If YES, has PT been informed?: No Medical Necessity Reason Pt with a Central, PICC or Fol: Yes The following are medically ne: Central Line, Roblero Catheter Reason for roblero catheter: Strict I&O Subjective Patient seen and examined at bedside. Sedated, intubated on mechanical ventilator. Overnight events reviewed. vital signs Vital Sign Date Time Temp Pulse Resp B/P (MAP) Pulse Ox O2 Delivery O2 Flow Rate FiO2 02/25/24 20:04 65 26 124/63 (83) 91 50 02/25/24 20:00 Mechanical Ventilator+ 02/25/24 14:30 98.3 98.3 Total Intake and Output 02/24/24 02/24/24 02/25/24 15:00 23:00 07:00 Intake Total 356.8 ml 594.18 ml 876.32 ml Output Total 875 ml 275 ml Balance 356.8 ml -280.82 ml 601.32 ml medications Current Medications Medications Dose Ordered Sig/Theodora Route Start Time Stop Time Status Last Admin Dose Admin Midazolam HCl 50 ml @ 1 mls/hr Q24H IV 02/11/24 09:15 02/20/24 17:30 1 MLS/HR Sodium Chloride 10 ml Q8HR IV 02/11/24 14:00 02/25/24 13:20 10 ML Atorvastatin Calcium 40 mg HS PO 02/12/24 22:00 02/24/24 21:34 40 MG Pantoprazole Sodium 40 mg DAILY IV 02/13/24 10:00 02/25/24 08:58 40 MG Lactulose 30 ml Q8HR PO 02/13/24 12:00 02/25/24 16:18 30 ML Enteral Nutritional Formula 1,000 ml 45ML/HR GT 02/16/24 12:45 02/25/24 00:57 1,000 ML Acetylcysteine 200 mg Q8HR NEB 02/18/24 22:00 02/25/24 13:39 200 MG Albuterol 2.5 mg Q8HR NEB 02/18/24 22:00 02/25/24 13:39 2.5 MG Vancomycin HCl 0 ml @ 0 mls/hr UD IV 02/18/24 17:45 Diagnostic Test (Pha) 1 strip Q6HR 02/20/24 12:00 02/25/24 18:03 1 STRIP Insulin Human Regular Q6HR SC 02/20/24 12:00 02/25/24 18:04 2 UNITS Dextrose 50 ml UD PRN IV 02/20/24 08:45 Cefepime/Dextrose 50 ml @ 12.5 mls/hr Q24H IV 02/22/24 08:00 02/25/24 08:00 12.5 MLS/HR Propofol 100 ml @ 3.72 mls/hr Q24H IV 02/21/24 21:00 02/25/24 19:13 26.04 MLS/HR Hydralazine HCl 10 mg Q6HP PRN IV 02/24/24 12:45 02/24/24 21:33 10 MG Artificial Tears 1 drop Q4HR EACHEYE 02/24/24 16:00 Aspirin 81 mg DAILY PO 02/25/24 10:00 02/25/24 08:58 81 MG Enoxaparin Sodium 120 mg DAILY SC 02/25/24 10:00 02/25/24 08:57 120 MG Metoprolol Tartrate 25 mg DAILY PO 02/25/24 12:00 Hold 02/25/24 12:11 25 MG Norepinephrine Bitartrate 250 ml @ 0.938 mls/ hr Q24H IV 02/25/24 16:45 Fentanyl Citrate 250 ml @ 2.5 mls/hr Q24H IV 02/25/24 19:00 objective Gen.: Patient lying in bed in medical ICU. Sedated, intubated on mechanical ventilator. Head: Normocephalic, atraumatic. Eyes: PERRLA. Ears: Normal external anatomy. Throat: Endotracheal tube and orogastric tube in place. Neck: Supple, trachea midline. Chest: Transmitted breath sounds bilaterally. Decreased air entry bilaterally. No wheezing. Bibasilar crackles. Cardiovascular: Positive S1, positive S2. Regular rate and rhythm. Abdomen: Positive bowel sounds in all 4 quadrants. Soft, nontender, nondistended. : Roblero in place. Normal external genitalia. Rectal: Deferred. Skin: Warm, dry. Intact. Extremities: 2+ radial pulses bilaterally. No lower extremity edema. Neuro: Sedated. laboratory and microbiology Laboratory Tests 02/25/24 03:26 Test 02/25/24 03:26 Range/Units Serum Glucose 124 H 74-106 mg/dL Assessment/Plan Impression: Acute hypoxic respiratory failure secondary to pneumonia and CHF exacerbation Acute on chronic hypercarbic respiratory failure Acute respiratory distress syndrome On mechanical ventilator Pneumonia, likely Gram-negative CHF exacerbation Pulmonary edema Obesity with a BMI of 32.6 Acute stroke Events: Remains on vent support On assist control with a respiratory rate of 26, tidal volume 550, PEEP of 8, FiO2 at 40%. ABG reviewed, notable for acidemia. CXR reviewed; Advance ET tube by approximately 2-3 cm. Pulmonary congestion and possible bilateral pleural effusions, unchanged. Sedated on Fentanyl, Propofol drip. Continue antibiotics - cefepime Diurese w/ Lasix drip at 10 mg/hr Monitor renal function Monitor electrolytes. Supplement as necessary. Potassium supplementation HD per Nephrology Tube feeds for nutritional support Recommend trach + PEG placement d/t prolonged mechanical ventilation. Trach will assist with liberation from mechanical ventilator D/w Dr. De Paz. Labs and imaging reviewed. Rest of plan as noted below. Plan: s/p intubation on mechanical ventilator CT head notable for hypodense pretty 10 x 8 mm in size in the simon with the left side from strenuous for acute infarct. Chronic periventricular ischemic changes. Cerebral and cerebellar atrophy likely age-related. Recommend neurology evaluation. CXR image and report reviewed. Devices in place. Cardiomegaly. Small left pleural effusion. Diffuse interstitial opacities likely pulmonary edema. Initial ABG was notable for acute on chronic hypercarbic respiratory failure, PaCO2 63.4 mmHg Repeat ABG reviewed. Compensated. Poor PF ratio. S/p bronchoscopy w/ bronchoalveolar lavage and central line placement on 02/22. Please see separate procedure note for details. S/p bronchoscopy with right middle lobe bronchoalveolar lavage on 02/15/24. See procedure note for details. Vent settings; On assist control with a respiratory rate of 26, tidal volume 550, PEEP of 8, FiO2 at 40%. Titrate FIO2 to keep O2 saturation above 92%. VAP bundle Daily ABG and CXR while intubated. Sedate for ventilator synchrony Pressors as necessary for hemodynamic support. Titrate to keep MAP above 65 mmHg/SBP above 90 mmHg. Continue antibiotics. F/u cultures. Diurese to euvolemia. Monitor ins/outs. On Lasix BID. Monitor renal function due to acute kidney injury. Monitor electrolytes. Supplement as necessary. Nutritional support. Accucheks, ISS. GI/DVT prophylaxis. Condition: Critical Prognosis: Poor given multiple comorbidities. Rest of plan per hospitalist and other consultants. A total of 35 minutes of critical care time was spent reviewing the patient record, examining the patient, making a diagnostic and therapeutic plan, discussing this plan with the medical personnel, following up on diagnostic studies and following the patient for clinical stability excluding any and all procedures. At least 50% of this time was spent in direct, [id number] contact. Thank you GIORGI Huffman for allowing me to participate in this patient's care. Further recommendations will depend on patient's clinical course. Please do not hesitate to contact me if you have any questions or concerns. This medical document was created using an electronic medical record system with [employer] system. Although this document has been carefully reviewed, there may still be some phonetic and typographical errors. These areas are purely typographical due to imperfections of the software programs, and do not reflect any compromise in the patient's medical care. Dietary Evaluation Review Comments: 1) Recommend CCHO-60, Cardiac 2gNa LoFat LoCholesterol diet when medically feasible. 2) If GI accessible but PO feeding is not an option, consider glucerna 1.2 @45ml/hr. In 24 hrs, pt will be receiving 65g protein and 1296 kcal.Adj and increase infusion rate as tolerated. 3) If NPO > 7 days and GI is not accesible, consider TPN to support 75% of her energy and protein needs. Expected Outcomes/Goals: Gradual weight loss, improved glucose Plan discussed with: Other (JESUS Garcia) Critical Care Time(min): 35 ALEXANDER SCHWAB MD Feb 25, 2024 21:15
[2024-02-26] VITALS (97 sets, daily range): BP systolic 119–145; BP diastolic 54–72; PULSE 55–73; RESP 12–30; TEMP 97.6–98.9; O2SAT 93–100
[2024-02-26 03:28] LABS: Hematocrit 39.3 % (41.0-53.0); Hemoglobin 13.4 g/dL (13.5-17.5); Mean Corpuscular Hemoglobin 29.8 pg (28.0-32.0); Mean Corpuscular Hgb Conc. 34.2 g/dL (32.0-36.0); Mean Corpuscular Volume 87.2 fL (80.0-100.0); Platelet Count (auto) 335 10^3/uL (140-450); Red Blood Cells 4.51 10^6/uL (4.5-5.90); Red Cell Distribution Width 14.9 % (11.8-14.3)
[2024-02-26 03:36] LABS: Chloride 98 mmol/L (98-107); Potassium 4.6 mmol/L (3.5-5.1); Sodium 137 mmol/L (136-145)
[2024-02-26 03:37] LABS: Anion Gap 17 (5-15); Calcium 8.9 mg/dL (8.7-10.4); Carbon Dioxide 22 mmol/L (20-31)
[2024-02-26 03:40] LABS: Band Neutrophils % (manual) 0; Basophils % (manual) 0 (0.0-2.0); Blast Cells 0; Metamyelocytes % 0; Promyelocytes % 0; Reactive Lymphocytes 0
[2024-02-26 03:42] LABS: BUN/Creatinine Ratio 18.5 (10.0-20.0); Glucose 169 mg/dL (74-106)
[2024-02-26 03:43] LABS: Magnesium 3.1 mg/dL (1.6-2.6)
[2024-02-26 04:14] LABS: Blood Urea Nitrogen 89 mg/dL (9-23)
[2024-02-26] MEDS: fentaNYL Drip 2500mCg/250mlNS 250 ML IV SCH (04:42)
--- NOTE | 2024-02-26 05:26 | DVH ---
CHEST RADIOGRAPH Indication: patient intubated Technique: Single frontal view of the chest was obtained COMPARISON: XY CHEST PORTABLE on DOS: 02/25/24, XY CHEST PORTABLE on DOS: 02/24/24, XY CHEST XRAY 1 V IEW on DOS: 02/23/24 FINDINGS: Lines and Tubes: Endotracheal tube, enteric catheter, right and left central venous catheter is in sa tisfactory position. Lungs: Pulmonary vascular congestion. Pleura: Small left pleural effusion. No pneumothorax. Cardiomediastinal contours: Unremarkable Bones: Unremarkable IMPRESSION: Lines and tubes in satisfactory position. No significant interval change.
[2024-02-26 06:12] LABS: Eosinophils % (manual) 1 (0-7); Lymphocytes % (manual) 8 (10.0-50.0); Monocytes % (manual) 8 (0-12); Myelocytes % 1
[2024-02-26 06:13] LABS: Platelet Estimate Adequate
[2024-02-26 07:14] LABS: Base Excess -6.3 mmol/L (-2.0-3.0)
--- NOTE | 2024-02-26 11:27 | DVHPN2 ---
Progress Note Date Seen: Feb 26, 2024 Has the PT tested + for MRSA If YES, has PT been informed?: No Medical Necessity Reason Pt with a Central, PICC or Fol: Yes The following are medically ne: Central Line, Roblero Catheter Reason for roblero catheter: Strict I&O Subjective Patient reports: Other (no events) Review of Systems: Deferred Objective vital signs Vital Sign Date Time Temp Pulse Resp B/P (MAP) Pulse Ox O2 Delivery O2 Flow Rate FiO2 02/26/24 11:00 65 17 131/59 (83) 94 02/26/24 10:18 50 02/26/24 10:00 Mechanical Ventilator 02/26/24 08:31 98.2 98.2 Total Intake and Output 02/25/24 02/25/24 02/26/24 15:00 23:00 07:00 Intake Total 493.36 ml 1112.32 ml 788.32 ml Output Total 300 ml 25 ml Balance 493.36 ml 812.32 ml 763.32 ml medications Current Medications Medications Dose Ordered Sig/Theodora Route Start Time Stop Time Status Last Admin Dose Admin Midazolam HCl 50 ml @ 1 mls/hr Q24H IV 02/11/24 09:15 02/20/24 17:30 1 MLS/HR Sodium Chloride 10 ml Q8HR IV 02/11/24 14:00 02/26/24 05:35 10 ML Atorvastatin Calcium 40 mg HS PO 02/12/24 22:00 02/25/24 22:25 40 MG Pantoprazole Sodium 40 mg DAILY IV 02/13/24 10:00 02/26/24 10:08 40 MG Lactulose 30 ml Q8HR PO 02/13/24 12:00 02/25/24 22:25 30 ML Enteral Nutritional Formula 1,000 ml 45ML/HR GT 02/16/24 12:45 02/25/24 00:57 1,000 ML Acetylcysteine 200 mg Q8HR NEB 02/18/24 22:00 02/26/24 07:59 200 MG Albuterol 2.5 mg Q8HR NEB 02/18/24 22:00 02/26/24 07:59 2.5 MG Vancomycin HCl 0 ml @ 0 mls/hr UD IV 02/18/24 17:45 Diagnostic Test (Pha) 1 strip Q6HR 02/20/24 12:00 02/26/24 05:32 1 STRIP Insulin Human Regular Q6HR SC 02/20/24 12:00 02/26/24 05:34 3 UNITS Dextrose 50 ml UD PRN IV 02/20/24 08:45 Cefepime/Dextrose 50 ml @ 12.5 mls/hr Q24H IV 02/22/24 08:00 02/26/24 08:41 12.5 MLS/HR Propofol 100 ml @ 3.72 mls/hr Q24H IV 02/21/24 21:00 02/26/24 08:40 26.04 MLS/HR Hydralazine HCl 10 mg Q6HP PRN IV 02/24/24 12:45 02/24/24 21:33 10 MG Artificial Tears 1 drop Q4HR EACHEYE 02/24/24 16:00 02/26/24 10:10 1 DROP Aspirin 81 mg DAILY PO 02/25/24 10:00 02/26/24 10:08 81 MG Enoxaparin Sodium 120 mg DAILY SC 02/25/24 10:00 02/26/24 10:10 120 MG Metoprolol Tartrate 25 mg DAILY PO 02/25/24 12:00 Hold 02/25/24 12:11 25 MG Norepinephrine Bitartrate 250 ml @ 0.938 mls/ hr Q24H IV 02/25/24 16:45 Fentanyl Citrate 250 ml @ 2.5 mls/hr Q24H IV 02/25/24 19:00 02/26/24 04:42 20 MLS/HR Examination: GENERAL:Abnormal, LUNGS:Abnormal, NEURO:Abnormal, :Abnormal laboratory and microbiology Laboratory Tests 02/26/24 03:10 Test 02/26/24 03:10 Range/Units Serum Glucose 169 H 74-106 mg/dL Microbiology Date/Time Source Procedure Growth Status 02/19/24 10:50 Bronchial Washings Gram Stain - Final Complete 02/19/24 10:50 Respiratory Culture - Final Methicillin Resistant S.aureus Complete 02/14/24 12:04 Urine - Roblero Port Urine Culture - Final Complete 02/12/24 13:30 Blood Blood Culture - Final NO GROWTH AFTER 5 DAYS OF INCUBATION. Complete 02/11/24 13:06 Nose MRSA Screen - Final Complete Problem List/Assessment/Plan Problem List/Assessment/Plan Assessment/Plan Acute kidney injury likely ATN due to hypotension + vancotoxicity Acute CVA no previous ckd acute respiratory failure with ARDS septic shock due to PNA bradycardia hypervolemic recs dialysis tomorrow no uop monitor for renal recovery signs if no improvement will consider tunneled cath lasix iv bid Plan discussed with: Other My Orders My Orders Orders - DEMIAN DE LA TORRE MD Procedure Category Date Status Time Communication Order ORDERS 02/25/24 Transmitted 18:53 Dietary Evaluation Review Comments: 1) Recommend CCHO-60, Cardiac 2gNa LoFat LoCholesterol diet when medically feasible. 2) If GI accessible but PO feeding is not an option, consider glucerna 1.2 @45ml/hr. In 24 hrs, pt will be receiving 65g protein and 1296 kcal.Adj and increase infusion rate as tolerated. 3) If NPO > 7 days and GI is not accesible, consider TPN to support 75% of her energy and protein needs. Expected Outcomes/Goals: Gradual weight loss, improved glucose DEMIAN DE LA TORRE MD Feb 26, 2024 11:27
--- NOTE | 2024-02-26 11:35 | DVHPN2 ---
Subjective Patient seen and examined at bedside. Remained unchanged overnight. Still intubated. Reviewed: Care Plan, H&P, Labs, Medications, Previous Orders, Radiology Changes from previous H/P or p: No Changes Respiratory: Shortness of breath Objective Vitals Vital Signs Date Time Temp Pulse Resp B/P (MAP) Pulse Ox O2 Delivery O2 Flow Rate FiO2 02/26/24 11:15 66 26 132/56 (81) 95 02/26/24 10:18 50 02/26/24 10:00 Mechanical Ventilator 02/26/24 08:31 98.2 98.2 Intake/Output Intake and Output 02/26/24 07:00 Intake Total 2394.00 ml Output Total 325 ml Balance 2069.00 ml Intake Oral 140 ml IV Total 1254.00 ml Tube Feeding 1000 ml Output Urine Total 325 ml Gastric Drainage Total 0 ml # Bowel Movements 1 General Appearance: Other (intubated and sedated) HEENT: PERRLA, Other (small pupils no reaction to light) Lungs: Clear to auscultation Cardiovascular: Regular rate, Normal S1, Normal S2 Abdomen: Normal bowel sounds, Soft, No tenderness, No hepatospenomegaly, Other (obese) Extremities: No edema Neuro: Other (sedated // intubated//no response top noxious stimulii/per nursing at sedation breaks has cough and gag reflex) Psych/Mental Status: Other (Sedated and intubated, unable to exam) Medications Current Medications Medications Dose Ordered Sig/Theodora Route Start Time Stop Time Status Last Admin Dose Admin Midazolam HCl 50 ml @ 1 mls/hr Q24H IV 02/11/24 09:15 02/20/24 17:30 1 MLS/HR Sodium Chloride 10 ml Q8HR IV 02/11/24 14:00 02/26/24 05:35 10 ML Atorvastatin Calcium 40 mg HS PO 02/12/24 22:00 02/25/24 22:25 40 MG Pantoprazole Sodium 40 mg DAILY IV 02/13/24 10:00 02/26/24 10:08 40 MG Lactulose 30 ml Q8HR PO 02/13/24 12:00 02/25/24 22:25 30 ML Enteral Nutritional Formula 1,000 ml 45ML/HR GT 02/16/24 12:45 02/25/24 00:57 1,000 ML Acetylcysteine 200 mg Q8HR NEB 02/18/24 22:00 02/26/24 07:59 200 MG Albuterol 2.5 mg Q8HR NEB 02/18/24 22:00 02/26/24 07:59 2.5 MG Vancomycin HCl 0 ml @ 0 mls/hr UD IV 02/18/24 17:45 Diagnostic Test (Pha) 1 strip Q6HR 02/20/24 12:00 02/26/24 05:32 1 STRIP Insulin Human Regular Q6HR SC 02/20/24 12:00 02/26/24 05:34 3 UNITS Dextrose 50 ml UD PRN IV 02/20/24 08:45 Cefepime/Dextrose 50 ml @ 12.5 mls/hr Q24H IV 02/22/24 08:00 02/26/24 08:41 12.5 MLS/HR Propofol 100 ml @ 3.72 mls/hr Q24H IV 02/21/24 21:00 02/26/24 08:40 26.04 MLS/HR Hydralazine HCl 10 mg Q6HP PRN IV 02/24/24 12:45 02/24/24 21:33 10 MG Artificial Tears 1 drop Q4HR EACHEYE 02/24/24 16:00 02/26/24 10:10 1 DROP Aspirin 81 mg DAILY PO 02/25/24 10:00 02/26/24 10:08 81 MG Enoxaparin Sodium 120 mg DAILY SC 02/25/24 10:00 02/26/24 10:10 120 MG Metoprolol Tartrate 25 mg DAILY PO 02/25/24 12:00 Hold 02/25/24 12:11 25 MG Norepinephrine Bitartrate 250 ml @ 0.938 mls/ hr Q24H IV 02/25/24 16:45 Fentanyl Citrate 250 ml @ 2.5 mls/hr Q24H IV 02/25/24 19:00 02/26/24 04:42 20 MLS/HR Laboratory Results Laboratory Tests 02/26/24 03:10 Chemistry Test 02/26/24 03:10 Calcium Level 8.9 mg/dL (8.7-10.4) Magnesium Level 3.1 mg/dL (1.6-2.6) H Urinalysis Test 02/20/24 14:57 Urine Color Brown (Yellow) H Urine Clarity Ex.turbid (Clear) Urine pH 5.5 (5.0-9.0) Urine Specific [place] 1.014 (1.001-1.035) Urine Protein 2+ (Negative) H Urine Ketones Negative (Negative) Urine Blood 3+ /uL (Negative) H Urine Nitrite Negative (Negative) Urine Bilirubin Negative (Negative) Urine Urobilinogen Normal mg/dL (Negative) Urine Leukocyte Esterase 1+ /uL (Negative) Urine RBC 124 /hpf (0 - 3) Urine WBC 107 /hpf (0 - 3) Urine Squamous Epithelial Cells Few /hpf (<5) Urine Bacteria Few /hpf (None Seen) H Urine Mucus Few (None Seen) Urine Creatinine 85.51 mg/dL (30.0-125.0) Urine Sodium 15 mmol/L (40-220) L Urine Glucose Normal mg/dL (Normal) Blood Gas Results Test 02/26/24 06:50 Arterial Blood pH 7.313 (7.350-7.450) FiO2 % 50.0 Microbiology Microbiology Date/Time Source Procedure Growth Status 02/19/24 10:50 Bronchial Washings Gram Stain - Final Complete 02/19/24 10:50 Respiratory Culture - Final Methicillin Resistant S.aureus Complete 02/14/24 12:04 Urine - [place] Urine Culture - Final Complete 02/12/24 13:30 Blood Blood Culture - Final NO GROWTH AFTER 5 DAYS OF INCUBATION. 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 Continuing with IV antibiotic. I signed consent with another physician for hemodialysis cath placed and also other procedure. Patient had no family member. Status post HD today and tolerate it. Continuing with ventilation support Continuing with cefepime and vancomycin Continuing with TPN Discuss with Dr. Canales, dye tank tender regarding to potential of extubated versus PEG and trach. Consult for PEG and trach placed. Prognosis poor Plan discussed with: Other (RN) Date of Service: Feb 26, 2024 Billing Provider: DALE ROBERTSON MD Common Visit Codes: [id number] INP/OBS CARE(HIGH) DALE ROBERTSON MD Feb 26, 2024 11:35
--- NOTE | 2024-02-26 17:25 | DVHPN2 ---
Consult Progress Note Date Seen: Feb 26, 2024 Subjective Other Systems: Patient is remains chemically sedated and mechanically ventilated. Objective vital signs Vital Sign Date Time Temp Pulse Resp B/P (MAP) Pulse Ox O2 Delivery O2 Flow Rate FiO2 02/26/24 16:00 26 93 Mechanical Ventilator+ 45 45 02/26/24 16:00 62 02/26/24 15:51 132/59 (83) 02/26/24 14:45 98.2 98.2 Total Intake and Output 02/25/24 02/25/24 02/26/24 15:00 23:00 07:00 Intake Total 493.36 ml 1112.32 ml 788.32 ml Output Total 300 ml 25 ml Balance 493.36 ml 812.32 ml 763.32 ml medications Current Medications Medications Dose Ordered Sig/Theodora Route Start Time Stop Time Status Last Admin Dose Admin Midazolam HCl 50 ml @ 1 mls/hr Q24H IV 02/11/24 09:15 02/20/24 17:30 1 MLS/HR Sodium Chloride 10 ml Q8HR IV 02/11/24 14:00 02/26/24 13:47 10 ML Atorvastatin Calcium 40 mg HS PO 02/12/24 22:00 02/25/24 22:25 40 MG Pantoprazole Sodium 40 mg DAILY IV 02/13/24 10:00 02/26/24 10:08 40 MG Lactulose 30 ml Q8HR PO 02/13/24 12:00 02/25/24 22:25 30 ML Enteral Nutritional Formula 1,000 ml 45ML/HR GT 02/16/24 12:45 02/25/24 00:57 1,000 ML Acetylcysteine 200 mg Q8HR NEB 02/18/24 22:00 02/26/24 14:26 200 MG Albuterol 2.5 mg Q8HR NEB 02/18/24 22:00 02/26/24 14:26 2.5 MG Vancomycin HCl 0 ml @ 0 mls/hr UD IV 02/18/24 17:45 Diagnostic Test (Pha) 1 strip Q6HR 02/20/24 12:00 02/26/24 12:14 1 STRIP Insulin Human Regular Q6HR SC 02/20/24 12:00 02/26/24 12:07 3 UNITS Dextrose 50 ml UD PRN IV 02/20/24 08:45 Cefepime/Dextrose 50 ml @ 12.5 mls/hr Q24H IV 02/22/24 08:00 02/26/24 08:41 12.5 MLS/HR Propofol 100 ml @ 3.72 mls/hr Q24H IV 02/21/24 21:00 02/26/24 15:37 26.04 MLS/HR Hydralazine HCl 10 mg Q6HP PRN IV 02/24/24 12:45 02/24/24 21:33 10 MG Artificial Tears 1 drop Q4HR EACHEYE 02/24/24 16:00 02/26/24 13:46 1 DROP Aspirin 81 mg DAILY PO 02/25/24 10:00 02/26/24 10:08 81 MG Enoxaparin Sodium 120 mg DAILY SC 02/25/24 10:00 02/26/24 10:10 120 MG Metoprolol Tartrate 25 mg DAILY PO 02/25/24 12:00 Hold 02/25/24 12:11 25 MG Norepinephrine Bitartrate 250 ml @ 0.938 mls/ hr Q24H IV 02/25/24 16:45 Fentanyl Citrate 250 ml @ 2.5 mls/hr Q24H IV 02/25/24 19:00 02/26/24 15:37 20 MLS/HR Examination: GENERAL:Abnormal, LUNGS:Abnormal (Mechanically ventilated, FiO2 45%.), CVS:Normal, NEURO:Abnormal (Chemically sedated on fentanyl and propofol) laboratory and microbiology Laboratory Tests 02/26/24 03:10 Test 02/26/24 03:10 Range/Units Serum Glucose 169 H 74-106 mg/dL Problem List/Assessment/Plan Problem List/Assessment/Plan Questionable acute ischemic stroke Sinus bradycardia with intermittent A-Fib with RVR Acute hypoxic respiratory failure with PNA & CHF Cardiorenal syndrome Type IV Acute HFpEF secondary to above Infrarenal AAA 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 Sands) * Echocardiogram revealed: Normal left ventricular size and dimension. Normal left ventricular systolic function estimated ejection fraction 60%. There is a grade 1 diastolic dysfunction. Normal right ventricular size and dimension. Normal right ventricular systolic function. Normal biatrial size and dimension. The aortic valve is thickened and sclerotic there is [id number] aortic valve stenosis with a peak gradient of 33 and mean gradient of 18 mmHg. The mitral valve is mildly thickened there is mild mitral valve regurgitation. There is mild tricuspid valve regurgitation. The pulmonary valve is grossly normal. No pericardial effusion. * Cardiorenal syndrome Type IV: hemodialysis per renal team. Sanders catheter in place. Monitor I&Os. * Transient paroxysmal atrial fibrillation: hold BB and antiarrhythmic given sinus bradycardia, initiate when appropriate. TSH level WNL. [id number] Score 7. HAS-BLED 4. Initiate full anticoagulation, therapeutic Lovenox r enal dose, and transition to NOAC therapy when appropriate. Maintain potassium >4 and Mg>2. Consider oral amiodarone with stable heart rate. * Infrarenal AAA: refer for endovascular aneurysm repair once stable. Continue aggressive blood pressure control with a systolic blood pressure <140 mmHg. * PAD with moderate left proximal ICA stenosis: single-antiplatelet therapy and lipid-lowering agent. * Continue antibiotics per hospitalist given pneumonia * Monitor ECG changes and notify Patient seen and examined at bedside with . There is no further inpatient cardiac workup indicated at this time. Please reconsult if needed. Thank you for allowing us to participate in this patient's care. Please call if you have any questions or concerns. Critical care time: 40 min. This medical document was created using an electronic medical record system with voice recognition software and computerized dictation system. Although this document has been carefully reviewed, there might still be some phonetic and typographical errors. Occasional wrong-word or ``sound-alike substitutions may have occurred due to the inherent limitations of voice recognition software. These areas are purely typographical due to imperfections of the software programs and do not reflect any compromise in the patient's medical care. Please read the chart carefully and recognize, using context, where these substitutions have occurred. Plan discussed with: Other (Bedside RN) Dietary Evaluation Review Comments: 1) Recommend CCHO-60, Cardiac 2gNa LoFat LoCholesterol diet when medically feasible. 2) If GI accessible but PO feeding is not an option, consider glucerna 1.2 @45ml/hr. In 24 hrs, pt will be receiving 65g protein and 1296 kcal.Adj and increase infusion rate as tolerated. 3) If NPO > 7 days and GI is not accesible, consider TPN to support 75% of her energy and protein needs. Expected Outcomes/Goals: Gradual weight loss, improved glucose Date of Service: Feb 26, 2024 Billing Provider: NATALIIA SANDS MD Cardiology Common Codes: [id number] CARE 30-74 MIN ABBE ZURITA EXTRUSION MACHINE OPERATOR Feb 26, 2024 17:25
[2024-02-26] MEDS: VANCOMYCIN 500 MG in D5W 5% 100 ML IV ONE (20:13)
--- NOTE | 2024-02-26 21:37 | DVHPN2 ---
Progress Note - Dictate Date Seen: Feb 26, 2024 Has the PT tested + for MRSA If YES, has PT been informed?: No Medical Necessity Reason Pt with a Central, PICC or Fol: Yes The following are medically ne: Central Line, Roblero Catheter Reason for roblero catheter: Strict I&O Subjective Patient seen and examined at bedside. Sedated, intubated on mechanical ventilator. Overnight events reviewed. vital signs Vital Sign Date Time Temp Pulse Resp B/P (MAP) Pulse Ox O2 Delivery O2 Flow Rate FiO2 02/26/24 20:01 56 26 123/58 (79) 98 45 02/26/24 20:00 Mechanical Ventilator+ 02/26/24 18:45 97.6 97.6 Total Intake and Output 02/25/24 02/25/24 02/26/24 15:00 23:00 07:00 Intake Total 493.36 ml 1112.32 ml 788.32 ml Output Total 300 ml 25 ml Balance 493.36 ml 812.32 ml 763.32 ml medications Current Medications Medications Dose Ordered Sig/Theodora Route Start Time Stop Time Status Last Admin Dose Admin Midazolam HCl 50 ml @ 1 mls/hr Q24H IV 02/11/24 09:15 02/20/24 17:30 1 MLS/HR Sodium Chloride 10 ml Q8HR IV 02/11/24 14:00 02/26/24 13:47 10 ML Atorvastatin Calcium 40 mg HS PO 02/12/24 22:00 02/25/24 22:25 40 MG Pantoprazole Sodium 40 mg DAILY IV 02/13/24 10:00 02/26/24 10:08 40 MG Lactulose 30 ml Q8HR PO 02/13/24 12:00 02/25/24 22:25 30 ML Enteral Nutritional Formula 1,000 ml 45ML/HR GT 02/16/24 12:45 02/25/24 00:57 1,000 ML Acetylcysteine 200 mg Q8HR NEB 02/18/24 22:00 02/26/24 14:26 200 MG Albuterol 2.5 mg Q8HR NEB 02/18/24 22:00 02/26/24 14:26 2.5 MG Vancomycin HCl 0 ml @ 0 mls/hr UD IV 02/18/24 17:45 Diagnostic Test (Pha) 1 strip Q6HR 02/20/24 12:00 02/26/24 18:00 1 STRIP Insulin Human Regular Q6HR SC 02/20/24 12:00 02/26/24 12:07 3 UNITS Dextrose 50 ml UD PRN IV 02/20/24 08:45 Cefepime/Dextrose 50 ml @ 12.5 mls/hr Q24H IV 02/22/24 08:00 02/26/24 08:41 12.5 MLS/HR Propofol 100 ml @ 3.72 mls/hr Q24H IV 02/21/24 21:00 02/26/24 19:30 26.04 MLS/HR Hydralazine HCl 10 mg Q6HP PRN IV 02/24/24 12:45 02/24/24 21:33 10 MG Artificial Tears 1 drop Q4HR EACHEYE 02/24/24 16:00 02/26/24 18:00 1 DROP Aspirin 81 mg DAILY PO 02/25/24 10:00 02/26/24 10:08 81 MG Enoxaparin Sodium 120 mg DAILY SC 02/25/24 10:00 02/26/24 10:10 120 MG Metoprolol Tartrate 25 mg DAILY PO 02/25/24 12:00 Hold 02/25/24 12:11 25 MG Norepinephrine Bitartrate 250 ml @ 0.938 mls/ hr Q24H IV 02/25/24 16:45 Fentanyl Citrate 250 ml @ 2.5 mls/hr Q24H IV 02/25/24 19:00 02/26/24 15:37 20 MLS/HR objective Gen.: Patient lying in bed in medical ICU. Sedated, intubated on mechanical ventilator. Head: Normocephalic, atraumatic. Eyes: PERRLA. Ears: Normal external anatomy. Throat: Endotracheal tube and orogastric tube in place. Neck: Supple, trachea midline. Chest: Transmitted breath sounds bilaterally. Decreased air entry bilaterally. No wheezing. Bibasilar crackles. Cardiovascular: Positive S1, positive S2. Regular rate and rhythm. Abdomen: Positive bowel sounds in all 4 quadrants. Soft, nontender, nondistended. : Roblero in place. Normal external genitalia. Rectal: Deferred. Skin: Warm, dry. Intact. Extremities: 2+ radial pulses bilaterally. No lower extremity edema. Neuro: Sedated. laboratory and microbiology Laboratory Tests 02/26/24 03:10 Test 02/26/24 03:10 Range/Units Serum Glucose 169 H 74-106 mg/dL Assessment/Plan Impression: Acute hypoxic respiratory failure secondary to pneumonia and CHF exacerbation Acute on chronic hypercarbic respiratory failure Acute respiratory distress syndrome On mechanical ventilator Pneumonia, likely Gram-negative CHF exacerbation Pulmonary edema Obesity with a BMI of 32.6 Acute stroke Events: Remains on vent support On assist control with a respiratory rate of 26, tidal volume 550, PEEP of 8, FiO2 at 50%. ABG reviewed, notable for acidemia. CXR reviewed; Pulmonary vascular congestion. Small left pleural effusion. Sedated on Fentanyl, Propofol drip. Continue antibiotics - cefepime Monitor renal function Monitor electrolytes. Supplement as necessary. Potassium supplementation HD per Nephrology Obtain consent for bronchoscopy w/ BAL due to increased ET tube secretions. Tube feeds for nutritional support Recommend trach + PEG placement d/t prolonged mechanical ventilation. Trach will assist with liberation from mechanical ventilator Labs and imaging reviewed. Rest of plan as noted below. Plan: s/p intubation on mechanical ventilator CT head notable for hypodense pretty 10 x 8 mm in size in the simon with the left side from strenuous for acute infarct. Chronic periventricular ischemic changes. Cerebral and cerebellar atrophy likely age-related. Recommend neurology evaluation. CXR image and report reviewed. Devices in place. Cardiomegaly. Small left pleural effusion. Diffuse interstitial opacities likely pulmonary edema. Initial ABG was notable for acute on chronic hypercarbic respiratory failure, PaCO2 63.4 mmHg Repeat ABG reviewed. Compensated. Poor PF ratio. S/p bronchoscopy w/ bronchoalveolar lavage and central line placement on 02/22. Please see separate procedure note for details. S/p bronchoscopy with right middle lobe bronchoalveolar lavage on 02/15/24. See procedure note for details. Vent settings; On assist control with a respiratory rate of 26, tidal volume 550, PEEP of 8, FiO2 at 50%. Titrate FIO2 to keep O2 saturation above 92%. VAP bundle Daily ABG and CXR while intubated. Sedate for ventilator synchrony Pressors as necessary for hemodynamic support. Titrate to keep MAP above 65 mmHg/SBP above 90 mmHg. Continue antibiotics. F/u cultures. Diurese to euvolemia. Monitor ins/outs. On Lasix BID. Monitor renal function due to acute kidney injury. Monitor electrolytes. Supplement as necessary. Nutritional support. Accucheks, ISS. GI/DVT prophylaxis. Condition: Critical Prognosis: Poor given multiple comorbidities. Rest of plan per hospitalist and other consultants. A total of 35 minutes of critical care time was spent reviewing the patient record, examining the patient, making a diagnostic and therapeutic plan, discussing this plan with the medical personnel, following up on diagnostic studies and following the patient for clinical stability excluding any and all procedures. At least 50% of this time was spent in direct, [id number] contact. Thank you COUNTERSINKER Nathanael for allowing me to participate in this patient's care. Further recommendations will depend on patient's clinical course. Please do not hesitate to contact me if you have any questions or concerns. This medical document was created using an electronic medical record system with [email or web address] system. Although this document has been carefully reviewed, there may still be some phonetic and typographical errors. These areas are purely typographical due to imperfections of the software programs, and do not reflect any compromise in the patient's medical care. Dietary Evaluation Review Comments: 1) Recommend CCHO-60, Cardiac 2gNa LoFat LoCholesterol diet when medically feasible. 2) If GI accessible but PO feeding is not an option, consider glucerna 1.2 @45ml/hr. In 24 hrs, pt will be receiving 65g protein and 1296 kcal.Adj and increase infusion rate as tolerated. 3) If NPO > 7 days and GI is not accesible, consider TPN to support 75% of her energy and protein needs. Expected Outcomes/Goals: Gradual weight loss, improved glucose Plan discussed with: Other (JESUS Mays) Critical Care Time(min): 35 ALEXANDER SCHWAB MD Feb 26, 2024 21:37
[2024-02-27] VITALS (105 sets, daily range): BP systolic 105–149; BP diastolic 48–95; PULSE 55–77; RESP 21–41; TEMP 97.9–99; O2SAT 90–99
[2024-02-27 03:52] LABS: Hematocrit 37.3 % (41.0-53.0); Hemoglobin 12.7 g/dL (13.5-17.5); Mean Corpuscular Hemoglobin 29.8 pg (28.0-32.0); Mean Corpuscular Volume 87.7 fL (80.0-100.0); Platelet Count (auto) 318 10^3/uL (140-450); Red Blood Cells 4.26 10^6/uL (4.5-5.90); Red Cell Distribution Width 14.8 % (11.8-14.3); White Blood Cell 15.1 10^3/uL (4.4-10.8)
[2024-02-27 04:08] LABS: Alanine Aminotransferase 46 U/L (7-40); Alkaline Phosphatase 154 U/L (46-116); Anion Gap 19 (5-15); BUN/Creatinine Ratio 17.4 (10.0-20.0); Calcium 8.7 mg/dL (8.7-10.4); Carbon Dioxide 20 mmol/L (20-31); Chloride 96 mmol/L (98-107); Glucose 107 mg/dL (74-106); Magnesium 3.4 mg/dL (1.6-2.6); Potassium 5.1 mmol/L (3.5-5.1); Sodium 135 mmol/L (136-145)
[2024-02-27 04:09] LABS: Albumin 3.7 g/dL (3.2-4.8); Basophils % (manual) 0 (0.0-2.0); Blast Cells 0; Metamyelocytes % 0; Myelocytes % 0; Promyelocytes % 0; Reactive Lymphocytes 0
[2024-02-27 04:10] LABS: Aspartate Aminotransferase 30 U/L (13-40); Bilirubin, Total 0.2 mg/dL (0.2-1.0)
[2024-02-27 04:26] LABS: Blood Urea Nitrogen 99 mg/dL (9-23)
--- NOTE | 2024-02-27 04:47 | DVH ---
CHEST RADIOGRAPH Indication: PT INTUBATED Technique: Single frontal view of the chest was obtained Comparison: XY CHEST PORTABLE on DOS: 02/26/24 FINDINGS: Lines and Tubes: The endotracheal tube terminates 3.8 cm above the [place]. There is a right and left central venous catheter terminating in the superior vena cava. The enteric tube courses below the lef t hemidiaphragm and the tip extends outside the field of view. Lungs: Bilateral interstitial prominence. Pleura: Left pleural effusion. No pneumothorax. Cardiomediastinal contours: Stable. Bones: No acute osseous abnormality. IMPRESSION: 1. Stable position of the support lines and tubes. 2. No significant interval change in left pleural effusion and pulmonary vascular congestion.
[2024-02-27 05:12] LABS: Band Neutrophils % (manual) 1; Eosinophils % (manual) 8 (0-7); Lymphocytes % (manual) 18 (10.0-50.0); Monocytes % (manual) 4 (0-12); Platelet Estimate Adequate
[2024-02-27 07:34] LABS: Base Excess -9.1 mmol/L (-2.0-3.0)
--- NOTE | 2024-02-27 11:05 | DVHPN2 ---
Subjective Patient seen and examined at bedside. Remained unchanged overnight. Still intubated. Reviewed: Care Plan, H&P, Labs, Medications, Previous Orders, Radiology Changes from previous H/P or p: No Changes Respiratory: Shortness of breath Objective Vitals Vital Signs Date Time Temp Pulse Resp B/P (MAP) Pulse Ox O2 Delivery O2 Flow Rate FiO2 02/27/24 10:43 67 26 129/70 (89) 97 45 02/27/24 08:00 Mechanical Ventilator+ 02/27/24 00:00 98.9 98.9 Intake/Output Intake and Output 02/27/24 07:00 Intake Total 1673.28 ml Output Total 35 ml Balance 1638.28 ml Intake Oral 135 ml IV Total 1229.28 ml Tube Feeding 309 ml Output Urine Total 35 ml # Bowel Movements 3 General Appearance: Other (intubated and sedated) HEENT: PERRLA, Other (small pupils no reaction to light) Lungs: Clear to auscultation Cardiovascular: Regular rate, Normal S1, Normal S2 Abdomen: Normal bowel sounds, Soft, No tenderness, No hepatospenomegaly, Other (obese) Extremities: No edema Neuro: Other (sedated // intubated//no response top noxious stimulii/per nursing at sedation breaks has cough and gag reflex) Psych/Mental Status: Other (Sedated and intubated, unable to exam) Medications Current Medications Medications Dose Ordered Sig/Theodora Route Start Time Stop Time Status Last Admin Dose Admin Midazolam HCl 50 ml @ 1 mls/hr Q24H IV 02/11/24 09:15 02/20/24 17:30 1 MLS/HR Sodium Chloride 10 ml Q8HR IV 02/11/24 14:00 02/27/24 05:20 10 ML Atorvastatin Calcium 40 mg HS PO 02/12/24 22:00 02/26/24 21:56 40 MG Pantoprazole Sodium 40 mg DAILY IV 02/13/24 10:00 02/27/24 09:34 40 MG Lactulose 30 ml Q8HR PO 02/13/24 12:00 02/25/24 22:25 30 ML Enteral Nutritional Formula 1,000 ml 45ML/HR GT 02/16/24 12:45 02/25/24 00:57 1,000 ML Acetylcysteine 200 mg Q8HR NEB 02/18/24 22:00 02/27/24 06:42 200 MG Albuterol 2.5 mg Q8HR NEB 02/18/24 22:00 02/27/24 06:41 2.5 MG Vancomycin HCl 0 ml @ 0 mls/hr UD IV 02/18/24 17:45 Diagnostic Test (Pha) 1 strip Q6HR 02/20/24 12:00 02/27/24 05:22 1 STRIP Insulin Human Regular Q6HR SC 02/20/24 12:00 02/26/24 12:07 3 UNITS Dextrose 50 ml UD PRN IV 02/20/24 08:45 Cefepime/Dextrose 50 ml @ 12.5 mls/hr Q24H IV 02/22/24 08:00 02/27/24 08:17 12.5 MLS/HR Propofol 100 ml @ 3.72 mls/hr Q24H IV 02/21/24 21:00 02/27/24 09:18 26.04 MLS/HR Hydralazine HCl 10 mg Q6HP PRN IV 02/24/24 12:45 02/24/24 21:33 10 MG Artificial Tears 1 drop Q4HR EACHEYE 02/24/24 16:00 02/27/24 05:19 1 DROP Aspirin 81 mg DAILY PO 02/25/24 10:00 02/27/24 10:32 81 MG Enoxaparin Sodium 120 mg DAILY SC 02/25/24 10:00 02/27/24 09:35 120 MG Metoprolol Tartrate 25 mg DAILY PO 02/25/24 12:00 Hold 02/25/24 12:11 25 MG Norepinephrine Bitartrate 250 ml @ 0.938 mls/ hr Q24H IV 02/25/24 16:45 Fentanyl Citrate 250 ml @ 2.5 mls/hr Q24H IV 02/25/24 19:00 02/27/24 03:31 20 MLS/HR Laboratory Results Laboratory Tests 02/27/24 03:15 Chemistry Test 02/27/24 03:15 Albumin 3.7 g/dL (3.2-4.8) Calcium Level 8.7 mg/dL (8.7-10.4) Magnesium Level 3.4 mg/dL (1.6-2.6) H Total Protein 7.0 g/dL (5.7-8.2) LFT Test 02/27/24 03:15 Alanine Aminotransferase (ALT) 46 U/L (7-40) H Alkaline Phosphatase 154 U/L (46-116) H Aspartate Amino Transferase (AST) 30 U/L (13-40) Total Bilirubin 0.2 mg/dL (0.2-1.0) Urinalysis Test 02/20/24 14:57 Urine Color Brown (Yellow) H Urine Clarity Ex.turbid (Clear) Urine pH 5.5 (5.0-9.0) Urine Specific [place] 1.014 (1.001-1.035) Urine Protein 2+ (Negative) H Urine Ketones Negative (Negative) Urine Blood 3+ /uL (Negative) H Urine Nitrite Negative (Negative) Urine Bilirubin Negative (Negative) Urine Urobilinogen Normal mg/dL (Negative) Urine Leukocyte Esterase 1+ /uL (Negative) Urine RBC 124 /hpf (0 - 3) Urine WBC 107 /hpf (0 - 3) Urine Squamous Epithelial Cells Few /hpf (<5) Urine Bacteria Few /hpf (None Seen) H Urine Mucus Few (None Seen) Urine Creatinine 85.51 mg/dL (30.0-125.0) Urine Sodium 15 mmol/L (40-220) L Urine Glucose Normal mg/dL (Normal) Blood Gas Results Test 02/27/24 07:26 Arterial Blood pH 7.270 (7.350-7.450) FiO2 % 45.0 Microbiology Microbiology Date/Time Source Procedure Growth Status 02/19/24 10:50 Bronchial Washings Gram Stain - Final Complete 02/19/24 10:50 Respiratory Culture - Final Methicillin Resistant S.aureus Complete 02/14/24 12:04 Urine - [place] Urine Culture - Final Complete 02/12/24 13:30 Blood Blood Culture - Final NO GROWTH AFTER 5 DAYS OF INCUBATION. 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 Continuing with IV antibiotic. I signed consent with another physician for hemodialysis cath placed and also other procedure. Patient had no family member. Status post HD today and tolerate it. Continuing with ventilation support Continuing with cefepime and vancomycin Continuing with TPN Discuss with Dr. Canales, community service representative regarding to potential of extubated versus PEG and trach. Consult for PEG and trach done. Patient probably need to go to LTACH. Prognosis poor Plan discussed with: Other Date of Service: Feb 27, 2024 Billing Provider: DALE ROBERTSON MD Common Visit Codes: [id number] INP/OBS CARE(HIGH) DALE ROBERTSON MD Feb 27, 2024 11:05
--- NOTE | 2024-02-27 11:09 | DVHPN2 ---
Subjective Patient seen and examined at bedside. Remained unchanged overnight. Still intubated. Reviewed: Care Plan, H&P, Labs, Medications, Previous Orders, Radiology Respiratory: Shortness of breath Objective Vitals Vital Signs Date Time Temp Pulse Resp B/P (MAP) Pulse Ox O2 Delivery O2 Flow Rate FiO2 02/27/24 10:43 67 26 129/70 (89) 97 45 02/27/24 08:00 Mechanical Ventilator+ 02/27/24 00:00 98.9 98.9 Intake/Output Intake and Output 02/27/24 07:00 Intake Total 1673.28 ml Output Total 35 ml Balance 1638.28 ml Intake Oral 135 ml IV Total 1229.28 ml Tube Feeding 309 ml Output Urine Total 35 ml # Bowel Movements 3 General Appearance: Other (intubated and sedated) HEENT: PERRLA, Other (small pupils no reaction to light) Lungs: Clear to auscultation Cardiovascular: Regular rate, Normal S1, Normal S2 Abdomen: Normal bowel sounds, Soft, No tenderness, No hepatospenomegaly, Other (obese) Extremities: No edema Neuro: Other (sedated // intubated//no response top noxious stimulii/per nursing at sedation breaks has cough and gag reflex) Psych/Mental Status: Other (Sedated and intubated, unable to exam) Medications Current Medications Medications Dose Ordered Sig/Theodora Route Start Time Stop Time Status Last Admin Dose Admin Midazolam HCl 50 ml @ 1 mls/hr Q24H IV 02/11/24 09:15 02/20/24 17:30 1 MLS/HR Sodium Chloride 10 ml Q8HR IV 02/11/24 14:00 02/27/24 05:20 10 ML Atorvastatin Calcium 40 mg HS PO 02/12/24 22:00 02/26/24 21:56 40 MG Pantoprazole Sodium 40 mg DAILY IV 02/13/24 10:00 02/27/24 09:34 40 MG Lactulose 30 ml Q8HR PO 02/13/24 12:00 02/25/24 22:25 30 ML Enteral Nutritional Formula 1,000 ml 45ML/HR GT 02/16/24 12:45 02/25/24 00:57 1,000 ML Acetylcysteine 200 mg Q8HR NEB 02/18/24 22:00 02/27/24 06:42 200 MG Albuterol 2.5 mg Q8HR NEB 02/18/24 22:00 02/27/24 06:41 2.5 MG Vancomycin HCl 0 ml @ 0 mls/hr UD IV 02/18/24 17:45 Diagnostic Test (Pha) 1 strip Q6HR 02/20/24 12:00 02/27/24 05:22 1 STRIP Insulin Human Regular Q6HR SC 02/20/24 12:00 02/26/24 12:07 3 UNITS Dextrose 50 ml UD PRN IV 02/20/24 08:45 Cefepime/Dextrose 50 ml @ 12.5 mls/hr Q24H IV 02/22/24 08:00 02/27/24 08:17 12.5 MLS/HR Propofol 100 ml @ 3.72 mls/hr Q24H IV 02/21/24 21:00 02/27/24 09:18 26.04 MLS/HR Hydralazine HCl 10 mg Q6HP PRN IV 02/24/24 12:45 02/24/24 21:33 10 MG Artificial Tears 1 drop Q4HR EACHEYE 02/24/24 16:00 02/27/24 05:19 1 DROP Aspirin 81 mg DAILY PO 02/25/24 10:00 02/27/24 10:32 81 MG Enoxaparin Sodium 120 mg DAILY SC 02/25/24 10:00 02/27/24 09:35 120 MG Metoprolol Tartrate 25 mg DAILY PO 02/25/24 12:00 Hold 02/25/24 12:11 25 MG Norepinephrine Bitartrate 250 ml @ 0.938 mls/ hr Q24H IV 02/25/24 16:45 Fentanyl Citrate 250 ml @ 2.5 mls/hr Q24H IV 02/25/24 19:00 02/27/24 03:31 20 MLS/HR Laboratory Results Laboratory Tests 02/27/24 03:15 Chemistry Test 02/27/24 03:15 Albumin 3.7 g/dL (3.2-4.8) Calcium Level 8.7 mg/dL (8.7-10.4) Magnesium Level 3.4 mg/dL (1.6-2.6) H Total Protein 7.0 g/dL (5.7-8.2) LFT Test 02/27/24 03:15 Alanine Aminotransferase (ALT) 46 U/L (7-40) H Alkaline Phosphatase 154 U/L (46-116) H Aspartate Amino Transferase (AST) 30 U/L (13-40) Total Bilirubin 0.2 mg/dL (0.2-1.0) Urinalysis Test 02/20/24 14:57 Urine Color Brown (Yellow) H Urine Clarity Ex.turbid (Clear) Urine pH 5.5 (5.0-9.0) Urine Specific [place] 1.014 (1.001-1.035) Urine Protein 2+ (Negative) H Urine Ketones Negative (Negative) Urine Blood 3+ /uL (Negative) H Urine Nitrite Negative (Negative) Urine Bilirubin Negative (Negative) Urine Urobilinogen Normal mg/dL (Negative) Urine Leukocyte Esterase 1+ /uL (Negative) Urine RBC 124 /hpf (0 - 3) Urine WBC 107 /hpf (0 - 3) Urine Squamous Epithelial Cells Few /hpf (<5) Urine Bacteria Few /hpf (None Seen) H Urine Mucus Few (None Seen) Urine Creatinine 85.51 mg/dL (30.0-125.0) Urine Sodium 15 mmol/L (40-220) L Urine Glucose Normal mg/dL (Normal) Blood Gas Results Test 02/27/24 07:26 Arterial Blood pH 7.270 (7.350-7.450) FiO2 % 45.0 Microbiology Microbiology Date/Time Source Procedure Growth Status 02/19/24 10:50 Bronchial Washings Gram Stain - Final Complete 02/19/24 10:50 Respiratory Culture - Final Methicillin Resistant S.aureus Complete 02/14/24 12:04 Urine - [place] Urine Culture - Final Complete 02/12/24 13:30 Blood Blood Culture - Final NO GROWTH AFTER 5 DAYS OF INCUBATION. 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 Continuing with IV antibiotic. I signed consent with another physician for hemodialysis cath placed and also other procedure. Patient had no family member. Status post HD today and tolerate it. Continuing with ventilation support Continuing with cefepime and vancomycin Continuing with TPN Discuss with Dr. Canales, loan review officer regarding to potential of extubated versus PEG and trach. Consult for PEG and trach if still remained intubated in the couple day Prognosis poor DALE ROBERTSNO MD Feb 27, 2024 11:09
[2024-02-27 13:12] LABS: INR 1.15 (0.9-1.15); Partial Thromboplastin Time 38.7 SEC (24.5-34.5); Prothrombin Time 12.1 sec (9.3-11.8)
--- NOTE | 2024-02-27 20:18 | DVHPN2 ---
Progress Note - Dictate Date Seen: Feb 27, 2024 Has the PT tested + for MRSA If YES, has PT been informed?: No Medical Necessity Reason Pt with a Central, PICC or Fol: Yes The following are medically ne: Central Line, Roblero Catheter Reason for roblero catheter: Strict I&O Subjective Patient seen and examined at bedside. Sedated, intubated on mechanical ventilator. Overnight events reviewed. vital signs Vital Sign Date Time Temp Pulse Resp B/P (MAP) Pulse Ox O2 Delivery O2 Flow Rate FiO2 02/27/24 20:05 63 26 115/52 (73) 93 45 02/27/24 18:00 Mechanical Ventilator+ 02/27/24 17:59 98.5 98.5 Total Intake and Output 02/26/24 02/26/24 02/27/24 15:00 23:00 07:00 Intake Total 418.68 ml 793.32 ml 461.28 ml Output Total 15 ml 20 ml Balance 418.68 ml 778.32 ml 441.28 ml medications Current Medications Medications Dose Ordered Sig/Theodora Route Start Time Stop Time Status Last Admin Dose Admin Midazolam HCl 50 ml @ 1 mls/hr Q24H IV 02/11/24 09:15 02/20/24 17:30 1 MLS/HR Sodium Chloride 10 ml Q8HR IV 02/11/24 14:00 02/27/24 15:09 10 ML Atorvastatin Calcium 40 mg HS PO 02/12/24 22:00 02/26/24 21:56 40 MG Pantoprazole Sodium 40 mg DAILY IV 02/13/24 10:00 02/27/24 09:34 40 MG Lactulose 30 ml Q8HR PO 02/13/24 12:00 02/25/24 22:25 30 ML Enteral Nutritional Formula 1,000 ml 45ML/HR GT 02/16/24 12:45 02/25/24 00:57 1,000 ML Acetylcysteine 200 mg Q8HR NEB 02/18/24 22:00 02/27/24 13:58 200 MG Albuterol 2.5 mg Q8HR NEB 02/18/24 22:00 02/27/24 13:58 2.5 MG Vancomycin HCl 0 ml @ 0 mls/hr UD IV 02/18/24 17:45 Diagnostic Test (Pha) 1 strip Q6HR 02/20/24 12:00 02/27/24 17:52 1 STRIP Insulin Human Regular Q6HR SC 02/20/24 12:00 02/27/24 17:49 2 UNITS Dextrose 50 ml UD PRN IV 02/20/24 08:45 Cefepime/Dextrose 50 ml @ 12.5 mls/hr Q24H IV 02/22/24 08:00 02/27/24 08:17 12.5 MLS/HR Propofol 100 ml @ 3.72 mls/hr Q24H IV 02/21/24 21:00 02/27/24 19:33 26.04 MLS/HR Hydralazine HCl 10 mg Q6HP PRN IV 02/24/24 12:45 02/24/24 21:33 10 MG Artificial Tears 1 drop Q4HR EACHEYE 02/24/24 16:00 02/27/24 17:52 1 DROP Aspirin 81 mg DAILY PO 02/25/24 10:00 02/27/24 10:32 81 MG Metoprolol Tartrate 25 mg DAILY PO 02/25/24 12:00 Hold 02/25/24 12:11 25 MG Norepinephrine Bitartrate 250 ml @ 0.938 mls/ hr Q24H IV 02/25/24 16:45 Fentanyl Citrate 250 ml @ 2.5 mls/hr Q24H IV 02/25/24 19:00 02/27/24 15:26 20 MLS/HR objective Gen.: Patient lying in bed in medical ICU. Sedated, intubated on mechanical ventilator. Head: Normocephalic, atraumatic. Eyes: PERRLA. Ears: Normal external anatomy. Throat: Endotracheal tube and orogastric tube in place. Neck: Supple, trachea midline. Chest: Transmitted breath sounds bilaterally. Decreased air entry bilaterally. No wheezing. Bibasilar crackles. Cardiovascular: Positive S1, positive S2. Regular rate and rhythm. Abdomen: Positive bowel sounds in all 4 quadrants. Soft, nontender, nondistended. : Roblero in place. Normal external genitalia. Rectal: Deferred. Skin: Warm, dry. Intact. Extremities: 2+ radial pulses bilaterally. No lower extremity edema. Neuro: Sedated. laboratory and microbiology Laboratory Tests 02/27/24 03:15 Test 02/27/24 03:15 Range/Units Serum Glucose 107 H 74-106 mg/dL Assessment/Plan Impression: Acute hypoxic respiratory failure secondary to pneumonia and CHF exacerbation Acute on chronic hypercarbic respiratory failure Acute respiratory distress syndrome On mechanical ventilator Pneumonia, likely Gram-negative CHF exacerbation Pulmonary edema Obesity with a BMI of 32.6 Acute stroke Events: Remains on vent support On assist control with a respiratory rate of 26, tidal volume 550, PEEP of 8, FiO2 at 45%. ABG reviewed, notable for acidemia. CXR reviewed; Pulmonary vascular congestion. Small left pleural effusion. No significant change. Sedated on Fentanyl, Propofol drip. Continue antibiotics - cefepime Monitor renal function Monitor electrolytes. Supplement as necessary. Potassium supplementation HD per Nephrology Tube feeds for nutritional support Recommend trach + PEG placement d/t prolonged mechanical ventilation. Trach will assist with liberation from mechanical ventilator Labs and imaging reviewed. Rest of plan as noted below. Plan: s/p intubation on mechanical ventilator CT head notable for hypodense pretty 10 x 8 mm in size in the simon with the left side from strenuous for acute infarct. Chronic periventricular ischemic changes. Cerebral and cerebellar atrophy likely age-related. Recommend neurology evaluation. CXR image and report reviewed. Devices in place. Cardiomegaly. Small left pleural effusion. Diffuse interstitial opacities likely pulmonary edema. Initial ABG was notable for acute on chronic hypercarbic respiratory failure, PaCO2 63.4 mmHg Repeat ABG reviewed. Compensated. Poor PF ratio. S/p bronchoscopy w/ bronchoalveolar lavage and central line placement on 02/22. Please see separate procedure note for details. S/p bronchoscopy with right middle lobe bronchoalveolar lavage on 02/15/24. See procedure note for details. Vent settings; On assist control with a respiratory rate of 26, tidal volume 550, PEEP of 8, FiO2 at 45%. Titrate FIO2 to keep O2 saturation above 92%. VAP bundle Daily ABG and CXR while intubated. Sedate for ventilator synchrony Pressors as necessary for hemodynamic support. Titrate to keep MAP above 65 mmHg/SBP above 90 mmHg. Continue antibiotics. F/u cultures. Diurese to euvolemia. Monitor ins/outs. On Lasix BID. Monitor renal function due to acute kidney injury. Monitor electrolytes. Supplement as necessary. Nutritional support. Accucheks, ISS. GI/DVT prophylaxis. Condition: Critical Prognosis: Poor given multiple comorbidities. Rest of plan per hospitalist and other consultants. A total of 35 minutes of critical care time was spent reviewing the patient record, examining the patient, making a diagnostic and therapeutic plan, discussing this plan with the medical personnel, following up on diagnostic studies and following the patient for clinical stability excluding any and all procedures. At least 50% of this time was spent in direct, [id number] contact. Thank you GIORGI Huffman for allowing me to participate in this patient's care. Further recommendations will depend on patient's clinical course. Please do not hesitate to contact me if you have any questions or concerns. This medical document was created using an electronic medical record system with [employer] dictation system. Although this document has been carefully reviewed, there may still be some phonetic and typographical errors. These areas are purely typographical due to imperfections of the software programs, and do not reflect any compromise in the patient's medical care. Dietary Evaluation Review Comments: 1) Recommend CCHO-60, Cardiac 2gNa LoFat LoCholesterol diet when medically feasible. 2) If GI accessible but PO feeding is not an option, consider glucerna 1.2 @45ml/hr. In 24 hrs, pt will be receiving 65g protein and 1296 kcal.Adj and increase infusion rate as tolerated. 3) If NPO > 7 days and GI is not accesible, consider TPN to support 75% of her energy and protein needs. Expected Outcomes/Goals: Gradual weight loss, improved glucose Plan discussed with: Other (JESUS Mays) Critical Care Time(min): 35 ALEXANDER SCHWAB MD Feb 27, 2024 20:18
[2024-02-28] VITALS (117 sets, daily range): BP systolic 106–154; BP diastolic 48–68; PULSE 57–100; RESP 20–30; TEMP 97.7–98.6; O2SAT 82–99
[2024-02-28 04:12] LABS: Hematocrit 37.8 % (41.0-53.0); Hemoglobin 12.8 g/dL (13.5-17.5); Mean Corpuscular Hemoglobin 29.7 pg (28.0-32.0); Mean Corpuscular Hgb Conc. 33.8 g/dL (32.0-36.0); Mean Corpuscular Volume 87.8 fL (80.0-100.0); Platelet Count (auto) 292 10^3/uL (140-450); Red Blood Cells 4.31 10^6/uL (4.5-5.90); Red Cell Distribution Width 14.8 % (11.8-14.3); White Blood Cell 16.4 10^3/uL (4.4-10.8)
[2024-02-28 04:20] LABS: Basophils % (manual) 0 (0.0-2.0); Blast Cells 0; Metamyelocytes % 0; Myelocytes % 0; Promyelocytes % 0; Reactive Lymphocytes 0
[2024-02-28 04:35] LABS: Alanine Aminotransferase 42 U/L (7-40); Albumin 3.6 g/dL (3.2-4.8); Alkaline Phosphatase 149 U/L (46-116); Anion Gap 17 (5-15); Aspartate Aminotransferase 33 U/L (13-40); BUN/Creatinine Ratio 15.4 (10.0-20.0); Bilirubin, Total 0.2 mg/dL (0.2-1.0); Calcium 8.9 mg/dL (8.7-10.4); Carbon Dioxide 21 mmol/L (20-31); Chloride 95 mmol/L (98-107); Glucose 94 mg/dL (74-106); Potassium 5.3 mmol/L (3.5-5.1); Sodium 133 mmol/L (136-145); Total Protein 7.2 g/dL (5.7-8.2)
[2024-02-28 04:44] LABS: Blood Urea Nitrogen 89 mg/dL (9-23)
[2024-02-28 05:26] LABS: Band Neutrophils % (manual) 1; Eosinophils % (manual) 4 (0-7); Lymphocytes % (manual) 16 (10.0-50.0); Monocytes % (manual) 9 (0-12); Platelet Estimate Adequate; Smudge Cells 2 /100 WBC
[2024-02-28] MEDS: SODIUM ZIRCONIUM CYCL 10 GM PAK PO ONE (05:49)
--- NOTE | 2024-02-28 06:10 | DVH ---
CHEST RADIOGRAPH Indication: VENTILATED Technique: Single frontal view of the chest was obtained Comparison: XY CHEST PORTABLE on DOS: 02/27/24, XY CHEST PORTABLE on DOS: 02/26/24, XY CHEST PORTABLE on DOS: 02/25/24 IMPRESSION: The cardiomediastinal silhouette is stable and enlarged. Support lines and tubes appear unchanged in satisfactory in position. Pulmonary vascular congestion and interstitial airspace opacities appear si milar. Likely small left pleural effusion. No pneumothorax.
[2024-02-28 08:29] LABS: Base Excess -6.1 mmol/L (-2.0-3.0)
--- NOTE | 2024-02-28 08:47 | MEDREC ---
[facility] Intervention Section I [facility] Intervention: Review courses of therapy (PATIENT IS INTUBATED AND IS TREATING WITH PNEUMONIA. ANTIBIOTICS INCLUDE CEFEPIME (02/11 - ONGOING) AND VANCOMYCIN (02/17 - ONGOING). HIS WBC HAS BEEN PERSISTENLY HIGH SINCE 02/18. BRONCHIAL WASHING CULTURE SHOWED A FEW GROWTHS OF MRSA AND YEAST, NOT VIRY ALBICANS. PLEASE CONSIDER ADDING ANTIFUNGAL IF PATIENT'S CONDITION IS NOT IMPROVING) RANDY JIMENEZ Feb 28, 2024 08:47
--- NOTE | 2024-02-28 12:31 | DVHPN2 ---
Progress Note - Dictate Date Seen: Feb 28, 2024 Has the PT tested + for MRSA If YES, has PT been informed?: No Medical Necessity Reason Pt with a Central, PICC or Fol: Yes The following are medically ne: Central Line, Roblero Catheter Reason for roblero catheter: Strict I&O Subjective On 100% FiO2 this morning vital signs Vital Sign Date Time Temp Pulse Resp B/P (MAP) Pulse Ox O2 Delivery O2 Flow Rate FiO2 02/28/24 12:24 60 26 122/56 (78) 92 100 02/28/24 06:00 Mechanical Ventilator+ 02/28/24 04:14 98.2 98.2 Total Intake and Output 02/27/24 02/27/24 02/28/24 15:00 23:00 07:00 Intake Total 418.32 ml 493.32 ml 478.20 ml Output Total 15 ml 20 ml Balance 418.32 ml 478.32 ml 458.20 ml medications Current Medications Medications Dose Ordered Sig/Theodora Route Start Time Stop Time Status Last Admin Dose Admin Midazolam HCl 50 ml @ 1 mls/hr Q24H IV 02/11/24 09:15 02/20/24 17:30 1 MLS/HR Sodium Chloride 10 ml Q8HR IV 02/11/24 14:00 02/28/24 05:32 10 ML Atorvastatin Calcium 40 mg HS PO 02/12/24 22:00 02/27/24 21:57 40 MG Pantoprazole Sodium 40 mg DAILY IV 02/13/24 10:00 02/28/24 09:03 40 MG Lactulose 30 ml Q8HR PO 02/13/24 12:00 02/28/24 05:50 30 ML Enteral Nutritional Formula 1,000 ml 45ML/HR GT 02/16/24 12:45 02/25/24 00:57 1,000 ML Acetylcysteine 200 mg Q8HR NEB 02/18/24 22:00 02/28/24 06:46 200 MG Albuterol 2.5 mg Q8HR NEB 02/18/24 22:00 02/28/24 06:45 2.5 MG Vancomycin HCl 0 ml @ 0 mls/hr UD IV 02/18/24 17:45 Diagnostic Test (Pha) 1 strip Q6HR 02/20/24 12:00 02/28/24 05:33 1 STRIP Insulin Human Regular Q6HR SC 02/20/24 12:00 02/27/24 17:49 2 UNITS Dextrose 50 ml UD PRN IV 02/20/24 08:45 Cefepime/Dextrose 50 ml @ 12.5 mls/hr Q24H IV 02/22/24 08:00 02/28/24 09:02 12.5 MLS/HR Propofol 100 ml @ 3.72 mls/hr Q24H IV 02/21/24 21:00 02/28/24 06:07 14.88 MLS/HR Hydralazine HCl 10 mg Q6HP PRN IV 02/24/24 12:45 02/24/24 21:33 10 MG Artificial Tears 1 drop Q4HR EACHEYE 02/24/24 16:00 02/28/24 09:04 1 DROP Aspirin 81 mg DAILY PO 02/25/24 10:00 02/27/24 10:32 81 MG Metoprolol Tartrate 25 mg DAILY PO 02/25/24 12:00 Hold 02/25/24 12:11 25 MG Norepinephrine Bitartrate 250 ml @ 0.938 mls/ hr Q24H IV 02/25/24 16:45 Fentanyl Citrate 250 ml @ 2.5 mls/hr Q24H IV 02/25/24 19:00 02/28/24 03:42 20 MLS/HR objective Gen: Intubated lungs: Rhonchi cvs: no rub ext: no edema laboratory and microbiology Laboratory Tests 02/28/24 03:30 Test 02/28/24 03:30 Range/Units Serum Glucose 94 74-106 mg/dL Assessment/Plan Problem List/Assessment/Plan Assessment/Plan Acute kidney injury likely ATN due to hypotension + vancotoxicity Acute CVA no previous ckd acute respiratory failure with ARDS septic shock due to PNA bradycardia hypervolemic recs - tentatively plan for dialysis February 28 - noted progressive hypoxia. Patient without signs of significant peripheral volume on exam. Dietary Evaluation Review Comments: 1) Recommend CCHO-60, Cardiac 2gNa LoFat LoCholesterol diet when medically feasible. 2) If GI accessible but PO feeding is not an option, consider glucerna 1.2 @45ml/hr. In 24 hrs, pt will be receiving 65g protein and 1296 kcal.Adj and increase infusion rate as tolerated. 3) If NPO > 7 days and GI is not accesible, consider TPN to support 75% of her energy and protein needs. Expected Outcomes/Goals: Gradual weight loss, improved glucose Plan discussed with: Other TAE COSTA MD Feb 28, 2024 12:31
--- NOTE | 2024-02-28 13:57 | DVHPN2 ---
Subjective Patient seen and examined at bedside. Remained unchanged overnight. Still intubated. Reviewed: Care Plan, H&P, Labs, Medications, Previous Orders, Radiology Changes from previous H/P or p: No Changes Respiratory: Shortness of breath Objective Vitals Vital Signs Date Time Temp Pulse Resp B/P (MAP) Pulse Ox O2 Delivery O2 Flow Rate FiO2 02/28/24 13:54 57 26 118/58 (78) 93 100 02/28/24 08:00 Mechanical Ventilator+ 02/28/24 04:14 98.2 98.2 Intake/Output Intake and Output 02/28/24 07:00 Intake Total 1389.84 ml Output Total 35 ml Balance 1354.84 ml Intake Oral 125 ml IV Total 1051.84 ml Tube Feeding 213 ml Output Urine Total 35 ml General Appearance: Other (intubated and sedated) HEENT: PERRLA, Other (small pupils no reaction to light) Lungs: Clear to auscultation Cardiovascular: Regular rate, Normal S1, Normal S2 Abdomen: Normal bowel sounds, Soft, No tenderness, No hepatospenomegaly, Other (obese) Extremities: No edema Neuro: Other (sedated // intubated//no response top noxious stimulii/per nursing at sedation breaks has cough and gag reflex) Psych/Mental Status: Other (Sedated and intubated, unable to exam) Medications Current Medications Medications Dose Ordered Sig/Theodora Route Start Time Stop Time Status Last Admin Dose Admin Midazolam HCl 50 ml @ 1 mls/hr Q24H IV 02/11/24 09:15 02/20/24 17:30 1 MLS/HR Sodium Chloride 10 ml Q8HR IV 02/11/24 14:00 02/28/24 05:32 10 ML Atorvastatin Calcium 40 mg HS PO 02/12/24 22:00 02/27/24 21:57 40 MG Pantoprazole Sodium 40 mg DAILY IV 02/13/24 10:00 02/28/24 09:03 40 MG Lactulose 30 ml Q8HR PO 02/13/24 12:00 02/28/24 05:50 30 ML Enteral Nutritional Formula 1,000 ml 45ML/HR GT 02/16/24 12:45 02/25/24 00:57 1,000 ML Acetylcysteine 200 mg Q8HR NEB 02/18/24 22:00 02/28/24 06:46 200 MG Albuterol 2.5 mg Q8HR NEB 02/18/24 22:00 02/28/24 06:45 2.5 MG Vancomycin HCl 0 ml @ 0 mls/hr UD IV 02/18/24 17:45 Diagnostic Test (Pha) 1 strip Q6HR 02/20/24 12:00 02/28/24 13:00 1 STRIP Insulin Human Regular Q6HR SC 02/20/24 12:00 02/28/24 13:03 2 UNITS Dextrose 50 ml UD PRN IV 02/20/24 08:45 Cefepime/Dextrose 50 ml @ 12.5 mls/hr Q24H IV 02/22/24 08:00 02/28/24 09:02 12.5 MLS/HR Propofol 100 ml @ 3.72 mls/hr Q24H IV 02/21/24 21:00 02/28/24 06:07 14.88 MLS/HR Hydralazine HCl 10 mg Q6HP PRN IV 02/24/24 12:45 02/24/24 21:33 10 MG Artificial Tears 1 drop Q4HR EACHEYE 02/24/24 16:00 02/28/24 09:04 1 DROP Aspirin 81 mg DAILY PO 02/25/24 10:00 02/27/24 10:32 81 MG Metoprolol Tartrate 25 mg DAILY PO 02/25/24 12:00 Hold 02/25/24 12:11 25 MG Norepinephrine Bitartrate 250 ml @ 0.938 mls/ hr Q24H IV 02/25/24 16:45 Fentanyl Citrate 250 ml @ 2.5 mls/hr Q24H IV 02/25/24 19:00 02/28/24 03:42 20 MLS/HR Laboratory Results Laboratory Tests 02/28/24 03:30 Chemistry Test 02/28/24 03:30 Albumin 3.6 g/dL (3.2-4.8) Calcium Level 8.9 mg/dL (8.7-10.4) Total Protein 7.2 g/dL (5.7-8.2) LFT Test 02/28/24 03:30 Alanine Aminotransferase (ALT) 42 U/L (7-40) H Alkaline Phosphatase 149 U/L (46-116) H Aspartate Amino Transferase (AST) 33 U/L (13-40) Total Bilirubin 0.2 mg/dL (0.2-1.0) Urinalysis Test 02/20/24 14:57 Urine Color Brown (Yellow) H Urine Clarity Ex.turbid (Clear) Urine pH 5.5 (5.0-9.0) Urine Specific [place] 1.014 (1.001-1.035) Urine Protein 2+ (Negative) H Urine Ketones Negative (Negative) Urine Blood 3+ /uL (Negative) H Urine Nitrite Negative (Negative) Urine Bilirubin Negative (Negative) Urine Urobilinogen Normal mg/dL (Negative) Urine Leukocyte Esterase 1+ /uL (Negative) Urine RBC 124 /hpf (0 - 3) Urine WBC 107 /hpf (0 - 3) Urine Squamous Epithelial Cells Few /hpf (<5) Urine Bacteria Few /hpf (None Seen) H Urine Mucus Few (None Seen) Urine Creatinine 85.51 mg/dL (30.0-125.0) Urine Sodium 15 mmol/L (40-220) L Urine Glucose Normal mg/dL (Normal) Blood Gas Results Test 02/28/24 08:17 Arterial Blood pH 7.306 (7.350-7.450) FiO2 % 70.0 Microbiology Microbiology Date/Time Source Procedure Growth Status 02/19/24 10:50 Bronchial Washings Gram Stain - Final Complete 02/19/24 10:50 Respiratory Culture - Final Methicillin Resistant S.aureus Complete 02/14/24 12:04 Urine - [place] Urine Culture - Final Complete 02/12/24 13:30 Blood Blood Culture - Final NO GROWTH AFTER 5 DAYS OF INCUBATION. 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 Continuing with IV antibiotic. I signed consent with another physician for hemodialysis cath placed and also other procedure. Patient had no family member. Status post HD today and tolerate it. Continuing with ventilation support Continuing with cefepime and vancomycin Continuing with TPN Discuss with Dr. Canales, tortilla maker regarding to potential of extubated versus PEG and trach. Consult for PEG and trach if still remained intubated in the couple day Prognosis poor Plan discussed with: Other (RN) Date of Service: Feb 28, 2024 Billing Provider: DLAE ROBERTSON MD Common Visit Codes: [id number] INP/OBS CARE(HIGH) DALE ROBERTSON MD Feb 28, 2024 13:57
[2024-02-28] MEDS: Juven Orange Powder PACKET 27.5gm GT SCH (18:00)
--- NOTE | 2024-02-28 18:32 | DVHINCON2 ---
Date of service: Feb 28, [address] De Paz Reason for Consultation For PEG tube placement History of Present Illness This 78 old male with hypertension came to the hospital with a history electrolyte and hypertension with a blood pressure 190/100 and 10 or so He was traveling and his car broke down Since saturation went down and he was intubated and sedated patient has been having problems pleural effusions and pulmonary edema with respiratory acidosis The reason for GI consult is for possible PEG placement Also getting a tracheostomy for long-term care Patient has no family Past Medical History Obesity diabetes Past Surgical History None Family History No family Social History Unable to get detailed Allergies: Coded Allergies: NO KNOWN ALLERGIES (Unverified , 02/11/24) Current Medications Current Medications Medications (Trade) Dose Ordered Sig/Theodora Route PRN Reason Start Time Stop Time Status Last Admin Enteral Nutritional Formula (Don [place] Powder PACKET) 27.5 gm BIDWM GT 02/28/24 18:00 Review of Systems Unable to get any details Vital Signs Vital Signs Date Time Temp Pulse Resp B/P (MAP) Pulse Ox O2 Delivery O2 Flow Rate FiO2 02/28/24 18:22 62 26 127/55 (79) 96 70 02/28/24 18:00 Mechanical Ventilator+ 02/28/24 11:59 97.7 97.7 Physical Exam Patient is intubated in the ICU HEENT examination no pallor no icterus Lungs scattered rales Cardiovascular unremarkable Abdomen slightly obese no rigidity no guarding no masses Labs/Diagnostic Data Labs Test 02/28/24 17:14 02/28/24 08:17 02/28/24 03:30 02/27/24 12:39 Range/Units POC Glucose 104 70-106 mg/dl Blood Gas Specimen Type Arterial Blood Gas Sample Site Left radial Blood Gas Patient Temperature 37.0 Arterial Blood Date Drawn [id number] Arterial Blood pH 7.306 L 7.350-7.450 Arterial Blood Partial Pressure CO2 40.7 35.0-48.0 mmHg Arterial Blood Partial Pressure O2 78.6 L 83.0-108.0 mmHg Arterial Blood HCO3 19.8 L 21.0-28.0 mmol/L Arterial Blood Oxygen Saturation 93.3 L 94.0-98.0 % Arterial Blood Base Excess -6.1 L -2.0-3.0 mmol/L Arterial Blood Oxyhemoglobin 92.8 L 94.0-98.0 % Arterial Blood Carboxyhemoglobin 0.3 L 0.5-1.5 % Arterial Blood Methemoglobin 0.2 0.0-1.5 % Rashaun Test Modified Blood Gas Total Hemoglobin 13.50 13.5-17.5 g/dL Blood Gas Set Respiration Rate 26.0 Blood Gas Modality Vent - ac Blood Gas Spontaneous Rate 27 FiO2 % 70.0 Blood Gas Tidal Volume 550.0 Blood Gas PEEP or CPAP 8.0 White Blood Count 16.4 H 4.4-10.8 10^3/uL Red Blood Count 4.31 L 4.5-5.90 10^6/uL Hemoglobin 12.8 L 13.5-17.5 g/dL Hematocrit 37.8 L 41.0-53.0 % Mean Corpuscular Volume 87.8 80.0-100.0 fL Mean Corpuscular Hemoglobin 29.7 28.0-32.0 pg Mean Corpuscular Hemoglobin Concent 33.8 32.0-36.0 g/dL Red Cell Distribution Width 14.8 H 11.8-14.3 % Platelet Count 292 140-450 10^3/uL Mean Platelet Volume 8.5 6.9-10.8 fL Neutrophils (%) (Auto) 37.0-80.0 % Lymphocytes (%) (Auto) 10.0-50.0 % Monocytes (%) (Auto) 0.0-12.0 % Basophils (%) (Auto) 0.0-2.0 % Neutrophils # (Auto) 1.6-8.6 10 ^3/uL Lymphocytes # (Auto) 0.4-5.4 10 ^3/uL Monocytes # (Auto) 0-1.3 10 ^3/uL Differential Total Cells Counted 100.0 100 Neutrophils % (Manual) 70 37.0-80.0 Band Neutrophils % (Manual) 1 Lymphocytes % (Manual) 16 10.0-50.0 Monocytes % (Manual) 9 0-12 Eosinophils % (Manual) 4 0-7 Basophils % (Manual) 0 0.0-2.0 Metamyelocytes % (manual) 0 Myelocytes % (Manual) 0 Promyelocytes % (Manual) 0 Blast Cells % (Manual) 0 Reactive Lymphocytes 0 Smudge Cells 2 /100 WBC Platelet Estimate Adequate Sodium Level 133 L 136-145 mmol/L Potassium Level 5.3 H 3.5-5.1 mmol/L Chloride Level 95 L 98-107 mmol/L Carbon Dioxide Level 21 20-31 mmol/L Anion Gap 17 H 5-15 Blood Urea Nitrogen 89 #*H 9-23 mg/dL Creatinine 5.79 H 0.700-1.30 mg/dL Glomerular Filtration Rate Calc 9 >90 mL/min BUN/Creatinine Ratio 15.4 10.0-20.0 Serum Glucose 94 74-106 mg/dL Calcium Level 8.9 8.7-10.4 mg/dL Total Bilirubin 0.2 0.2-1.0 mg/dL Aspartate Amino Transferase (AST) 33 13-40 U/L Alanine Aminotransferase (ALT) 42 H 7-40 U/L Alkaline Phosphatase 149 H 46-116 U/L Total Protein 7.2 5.7-8.2 g/dL Albumin 3.6 3.2-4.8 g/dL Random Vancomycin Level 17.1 H 5-10 ug/mL Prothrombin Time 12.1 H 9.3-11.8 sec Prothrombin Time INR 1.15 0.9-1.15 Activated Partial Thromboplast Time 38.7 H 24.5-34.5 SEC Test 02/27/24 03:15 02/25/24 13:34 02/25/24 06:30 02/24/24 03:00 Range/Units Clumped Platelets Few Magnesium Level 3.4 H 1.6-2.6 mg/dL Hepatitis B Surface Antigen Negative Negative Blood Gas Critical Value Read Back Yes Blood Gas Notified Whom lynne Perdomo md Blood Gas Notified Time [id number] Blood Gas Notified By Movie Operator suzette hannon B-Type Natriuretic Peptide 956.11 0-100 pg/mL Test 02/22/24 03:05 02/21/24 06:59 02/20/24 14:57 02/19/24 18:09 Range/Units Eosinophils (%) (Auto) 0.3 0.0-7.0 % Eosinophils # (Auto) 0 0-0.8 10 ^3/uL Basophils # (Auto) 0.1 0-0.2 10 ^3/uL Nucleated Red Blood Cells 0.0 % Specimen Drawn By Christine Urine Color Brown H Yellow Urine Clarity Ex.turbid Clear Urine pH 5.5 5.0-9.0 Urine Specific [place] 1.014 1.001-1.035 Urine Protein 2+ H Negative Urine Ketones Negative Negative Urine Blood 3+ H Negative /uL Urine Nitrite Negative Negative Urine Bilirubin Negative Negative Urine Urobilinogen Normal Negative mg/dL Urine Leukocyte Esterase 1+ Negative /uL Urine RBC 124 0 - 3 /hpf Urine WBC 107 0 - 3 /hpf Urine Squamous Epithelial Cells Few <5 /hpf Urine Bacteria Few H None Seen /hpf Urine Mucus Few None Seen Urine Creatinine 85.51 30.0-125.0 mg/dL Urine Sodium 15 L 40-220 mmol/L Urine Glucose Normal Normal mg/dL Vancomycin Level Trough 37.4 *H 5-10 ug/mL Test 02/19/24 11:44 02/18/24 19:50 02/16/24 13:00 02/16/24 08:20 Range/Units HIV (1&2) Antibody Negative Negative Blood Gas Spontaneous Tidal Volume 570 Blood Gas Inspiratory Pressure 37.0 Bl Gas Inspiratory/Expiratory Ratio 1:2.2 Influenza Type A Antigen Negative Negative Influenza Type B Antigen Negative Negative SARS-CoV-2 Antigen (Rapid) Negative NEGATIVE Phosphorus Level 3.1 2.4-5.1 mg/dL Test 02/11/24 15:03 02/11/24 08:30 02/11/24 05:10 02/11/24 02:19 Range/Units D-Dimer, Quantitative 1.70 H 0.0-0.49 mg/L FEU Ammonia 14 11-32 umol/L Plasma/Serum Blood Alcohol 3.4 <10 mg/dL Urine Opiates Screen Neg NEGATIVE Urine Fentanyl Screen Neg NEGATIVE Urine Barbiturates Screen Neg NEGATIVE Urine Phencyclidine Screen Neg NEGATIVE Urine Amphetamines Screen Neg NEGATIVE Urine Benzodiazepines Screen Neg NEGATIVE Urine Cocaine Screen Neg NEGATIVE Urine Cannabinoids Screen Neg NEGATIVE Lactic Acid Level 1.1 0.4-2.0 mmol/L Hemoglobin A1c 7.8 H <5.7 % A1C Troponin I High Sensitivity 5 </=54 ng/L Triglycerides Level 190 H < 150 mg/dL Cholesterol Level 171 < 200 mg/dL LDL Cholesterol 109 H < 100 mg/dL HDL Cholesterol 42 40-59 mg/dL Thyroid Stimulating Hormone (TSH) 4.29 0.55-4.78 uIU/mL Microbiology Date/Time Source Procedure Growth Status 02/19/24 10:50 Bronchial Washings Gram Stain - Final Complete 02/19/24 10:50 Respiratory Culture - Final Methicillin Resistant S.aureus Complete 02/14/24 12:04 Urine - [place] Urine Culture - Final Complete 02/12/24 13:30 Blood Blood Culture - Final NO GROWTH AFTER 5 DAYS OF INCUBATION. Complete 02/11/24 13:06 Nose MRSA Screen - Final Complete Assessment 69-year-old with history of respiratory failure intubated for PEG tube placement for long-term care Patient has no family hence unable to get any informed consent We will arrange for a PEG tube after consent by two doctors as needed Plan/Recommendation will arrange for a PEG tube after consent by two doctors as needed Plan discussed with: Other VIJAY TENORIO MD Feb 28, 2024 18:32
[2024-02-28] MEDS ORDERED: PROPOFOL 100 ML IV SCH (21:15)
--- NOTE | 2024-02-28 21:30 | DVHPN2 ---
Progress Note - Dictate Date Seen: Feb 28, 2024 Has the PT tested + for MRSA If YES, has PT been informed?: No Medical Necessity Reason Pt with a Central, PICC or Fol: Yes The following are medically ne: Central Line, Roblero Catheter Reason for roblero catheter: Strict I&O Subjective Patient seen and examined at bedside. Sedated, intubated on mechanical ventilator. Overnight events reviewed. vital signs Vital Sign Date Time Temp Pulse Resp B/P (MAP) Pulse Ox O2 Delivery O2 Flow Rate FiO2 02/28/24 20:44 63 26 125/56 (79) 98 02/28/24 20:18 70 02/28/24 20:14 98.4 98.4 02/28/24 20:00 Mechanical Ventilator+ Total Intake and Output 02/28/24 02/28/24 02/28/24 01:30 09:30 17:30 Intake Total 493.32 ml 475.76 ml 289.04 ml Output Total 15 ml 20 ml Balance 478.32 ml 455.76 ml 289.04 ml medications Current Medications Medications Dose Ordered Sig/Theodora Route Start Time Stop Time Status Last Admin Dose Admin Midazolam HCl 50 ml @ 1 mls/hr Q24H IV 02/11/24 09:15 02/20/24 17:30 1 MLS/HR Sodium Chloride 10 ml Q8HR IV 02/11/24 14:00 02/28/24 15:16 10 ML Atorvastatin Calcium 40 mg HS PO 02/12/24 22:00 02/27/24 21:57 40 MG Pantoprazole Sodium 40 mg DAILY IV 02/13/24 10:00 02/28/24 09:03 40 MG Lactulose 30 ml Q8HR PO 02/13/24 12:00 02/28/24 15:15 30 ML Enteral Nutritional Formula 1,000 ml 45ML/HR GT 02/16/24 12:45 02/25/24 00:57 1,000 ML Acetylcysteine 200 mg Q8HR NEB 02/18/24 22:00 02/28/24 14:16 200 MG Albuterol 2.5 mg Q8HR NEB 02/18/24 22:00 02/28/24 14:16 2.5 MG Vancomycin HCl 0 ml @ 0 mls/hr UD IV 02/18/24 17:45 Diagnostic Test (Pha) 1 strip Q6HR 02/20/24 12:00 02/28/24 17:19 1 STRIP Insulin Human Regular Q6HR SC 02/20/24 12:00 02/28/24 13:03 2 UNITS Dextrose 50 ml UD PRN IV 02/20/24 08:45 Cefepime/Dextrose 50 ml @ 12.5 mls/hr Q24H IV 02/22/24 08:00 02/28/24 09:02 12.5 MLS/HR Hydralazine HCl 10 mg Q6HP PRN IV 02/24/24 12:45 02/24/24 21:33 10 MG Artificial Tears 1 drop Q4HR EACHEYE 02/24/24 16:00 02/28/24 17:19 1 DROP Aspirin 81 mg DAILY PO 02/25/24 10:00 02/27/24 10:32 81 MG Metoprolol Tartrate 25 mg DAILY PO 02/25/24 12:00 Hold 02/25/24 12:11 25 MG Norepinephrine Bitartrate 250 ml @ 0.938 mls/ hr Q24H IV 02/25/24 16:45 Fentanyl Citrate 250 ml @ 2.5 mls/hr Q24H IV 02/25/24 19:00 02/28/24 18:40 15 MLS/HR Enteral Nutritional Formula 27.5 gm BIDWM GT 02/28/24 18:00 Propofol 100 ml @ 3.45 mls/hr Q24H IV 02/28/24 21:15 03/06/24 21:15 UNV objective Gen.: Patient lying in bed in medical ICU. Sedated, intubated on mechanical ventilator. Head: Normocephalic, atraumatic. Eyes: PERRLA. Ears: Normal external anatomy. Throat: Endotracheal tube and orogastric tube in place. Neck: Supple, trachea midline. Chest: Transmitted breath sounds bilaterally. Decreased air entry bilaterally. No wheezing. Bibasilar crackles. Cardiovascular: Positive S1, positive S2. Regular rate and rhythm. Abdomen: Positive bowel sounds in all 4 quadrants. Soft, nontender, nondistended. : Roblero in place. Normal external genitalia. Rectal: Deferred. Skin: Warm, dry. Intact. Extremities: 2+ radial pulses bilaterally. No lower extremity edema. Neuro: Sedated. laboratory and microbiology Laboratory Tests 02/28/24 03:30 Test 02/28/24 03:30 Range/Units Serum Glucose 94 74-106 mg/dL Assessment/Plan Impression: Acute hypoxic respiratory failure secondary to pneumonia and CHF exacerbation Acute on chronic hypercarbic respiratory failure Acute respiratory distress syndrome On mechanical ventilator Pneumonia, likely Gram-negative CHF exacerbation Pulmonary edema Obesity with a BMI of 32.6 Acute stroke Events: Remains on vent support On assist control with a respiratory rate of 26, tidal volume 550, PEEP of 10, FiO2 at 70%. Increased FiO2 requirements. ABG reviewed, notable for acidemia. CXR reviewed; Pulmonary vascular congestion and interstitial airspace opacities, appear similar. Likely small left pleural effusion. No pneumothorax. Sedated on Fentanyl, Propofol drip. Continue antibiotics - cefepime Monitor renal function Monitor electrolytes. Supplement as necessary. HD per Nephrology Tube feeds for nutritional support GI recs appreciated. Awaiting trach. Bronchoscopy today d/t increased ET tube secretions. Labs and imaging reviewed. Rest of plan as noted below. Plan: s/p intubation on mechanical ventilator CT head notable for hypodense pretty 10 x 8 mm in size in the simon with the left side from strenuous for acute infarct. Chronic periventricular ischemic changes. Cerebral and cerebellar atrophy likely age-related. Recommend neurology evaluation. CXR image and report reviewed. Devices in place. Cardiomegaly. Small left pleural effusion. Diffuse interstitial opacities likely pulmonary edema. Initial ABG was notable for acute on chronic hypercarbic respiratory failure, PaCO2 63.4 mmHg Repeat ABG reviewed. Compensated. Poor PF ratio. S/p bronchoscopy w/ bronchoalveolar lavage and central line placement on 02/22. Please see separate procedure note for details. S/p bronchoscopy with right middle lobe bronchoalveolar lavage on 02/15/24. See procedure note for details. Vent settings; On assist control with a respiratory rate of 26, tidal volume 550, PEEP of 10, FiO2 at 70%. Titrate FIO2 to keep O2 saturation above 92%. VAP bundle Daily ABG and CXR while intubated. Sedate for ventilator synchrony Pressors as necessary for hemodynamic support. Titrate to keep MAP above 65 mmHg/SBP above 90 mmHg. Continue antibiotics. F/u cultures. Diurese to euvolemia. Monitor ins/outs. On Lasix BID. Monitor renal function due to acute kidney injury. Monitor electrolytes. Supplement as necessary. Nutritional support. Accucheks, ISS. GI/DVT prophylaxis. Condition: Critical Prognosis: Poor given multiple comorbidities. Rest of plan per hospitalist and other consultants. A total of 35 minutes of critical care time was spent reviewing the patient record, examining the patient, making a diagnostic and therapeutic plan, discussing this plan with the medical personnel, following up on diagnostic studies and following the patient for clinical stability excluding any and all procedures. At least 50% of this time was spent in direct, [id number] contact. Thank you GIORGI Huffman for allowing me to participate in this patient's care. Further recommendations will depend on patient's clinical course. Please do not hesitate to contact me if you have any questions or concerns. This medical document was created using an electronic medical record system with [employer] dictation system. Although this document has been carefully reviewed, there may still be some phonetic and typographical errors. These areas are purely typographical due to imperfections of the software programs, and do not reflect any compromise in the patient's medical care. Dietary Evaluation Review Comments: 1) Recommend CCHO-60, Cardiac 2gNa LoFat LoCholesterol diet when medically feasible. 2) If GI accessible but PO feeding is not an option, consider glucerna 1.2 @45ml/hr. In 24 hrs, pt will be receiving 65g protein and 1296 kcal.Adj and increase infusion rate as tolerated. 3) If NPO > 7 days and GI is not accesible, consider TPN to support 75% of her energy and protein needs. Expected Outcomes/Goals: Gradual weight loss, improved glucose Plan discussed with: Other (RN July) Critical Care Time(min): 35 ALEXANDER SCHWAB MD Feb 28, 2024 21:29
[2024-02-28] MEDS: PROPOFOL 100 ML IV SCH (22:16)
[2024-02-29] VITALS (113 sets, daily range): BP systolic 109–164; BP diastolic 45–73; PULSE 58–134; RESP 14–28; TEMP 97.8–98.4; O2SAT 91–100
[2024-02-29 03:44] LABS: Basophils # (auto) 0.1 10 ^3/uL (0-0.2); Basophils % (auto) 0.4 % (0.0-2.0); Eosinophils # (auto) 0.6 10 ^3/uL (0-0.8); Eosinophils % (auto) 4.2 % (0.0-7.0); Hematocrit 36.5 % (41.0-53.0); Hemoglobin 12.4 g/dL (13.5-17.5); Lymphocytes % (auto) 6.8 % (10.0-50.0); Mean Corpuscular Hemoglobin 29.6 pg (28.0-32.0); Mean Corpuscular Hgb Conc. 33.9 g/dL (32.0-36.0); Mean Corpuscular Volume 87.3 fL (80.0-100.0); Monocytes # (auto) 1.3 10 ^3/uL (0-1.3); Neutrophils # (auto) 11.5 10 ^3/uL (1.6-8.6); Neutrophils % (auto) 79.6 % (37.0-80.0); Nucleated Red Blood Cells % 0.1 %; Platelet Count (auto) 317 10^3/uL (140-450); Red Blood Cells 4.18 10^6/uL (4.5-5.90); Red Cell Distribution Width 14.4 % (11.8-14.3); White Blood Cell 14.4 10^3/uL (4.4-10.8)
[2024-02-29 04:00] LABS: Alanine Aminotransferase 47 U/L (7-40); Albumin 3.6 g/dL (3.2-4.8); Alkaline Phosphatase 155 U/L (46-116); Anion Gap 20 (5-15); Aspartate Aminotransferase 40 U/L (13-40); BUN/Creatinine Ratio 14.9 (10.0-20.0); Calcium 8.7 mg/dL (8.7-10.4); Carbon Dioxide 17 mmol/L (20-31); Chloride 94 mmol/L (98-107); Glucose 114 mg/dL (74-106); Sodium 131 mmol/L (136-145)
[2024-02-29 04:01] LABS: Bilirubin, Total 0.2 mg/dL (0.2-1.0); Total Protein 7.2 g/dL (5.7-8.2)
[2024-02-29 04:22] LABS: Blood Urea Nitrogen 100 mg/dL (9-23); Potassium 6.6 mmol/L (3.5-5.1)
[2024-02-29] MEDS: CALCIUM GLUC 1,000mg/50ml-NS 50 ML IV ONE (05:28)
[2024-02-29] MEDS: DEXTROSE (50%) 50ML SYRG IV ONE (05:33)
--- NOTE | 2024-02-29 05:43 | DVH ---
CHEST RADIOGRAPH Indication: VENTILATED Technique: Single frontal view of the chest was obtained COMPARISON: XY CHEST PORTABLE on DOS: 02/28/24, XY CHEST PORTABLE on DOS: 02/27/24, XY CHEST PORTABLE on DOS: 02/26/24 FINDINGS: Lines and Tubes: Endotracheal tube, enteric catheter and right central venous catheter in satisfactor y position. Lungs: Multifocal airspace disease. Pleura: No effusion. No pneumothorax. Cardiomediastinal contours: Unremarkable Bones: Unremarkable IMPRESSION: Lines and tubes in satisfactory position. No significant interval change.
[2024-02-29] MEDS: InsuLIN REG 1unit/0.01ml Soln (100units/ml) IV ONE (05:55)
[2024-02-29 06:30] LABS: Base Excess -10.8 mmol/L (-2.0-3.0)
--- NOTE | 2024-02-29 10:11 | DVHPN2 ---
Subjective Patient seen and examined at bedside. Remained unchanged overnight. Still intubated. Reviewed: Care Plan, H&P, Labs, Medications, Previous Orders, Radiology Changes from previous H/P or p: No Changes Respiratory: Shortness of breath Objective Vitals Vital Signs Date Time Temp Pulse Resp B/P (MAP) Pulse Ox O2 Delivery O2 Flow Rate FiO2 02/29/24 09:59 133/61 02/29/24 09:57 61 26 99 40 02/29/24 09:45 98.0 98.0 02/29/24 09:32 Mechanical Ventilator+ Intake/Output Intake and Output 02/29/24 07:00 Intake Total 917.32 ml Output Total 45 ml Balance 872.32 ml Intake Oral 50 ml IV Total 756.32 ml Tube Feeding 111 ml Output Urine Total 45 ml # Bowel Movements 1 General Appearance: Other (intubated and sedated) HEENT: PERRLA, Other (small pupils no reaction to light) Lungs: Clear to auscultation Cardiovascular: Regular rate, Normal S1, Normal S2 Abdomen: Normal bowel sounds, Soft, No tenderness, No hepatospenomegaly, Other (obese) Extremities: No edema Neuro: Other (sedated // intubated//no response top noxious stimulii/per nursing at sedation breaks has cough and gag reflex) Psych/Mental Status: Other (Sedated and intubated, unable to exam) Medications Current Medications Medications Dose Ordered Sig/Theodora Route Start Time Stop Time Status Last Admin Dose Admin Midazolam HCl 50 ml @ 1 mls/hr Q24H IV 02/11/24 09:15 02/20/24 17:30 1 MLS/HR Sodium Chloride 10 ml Q8HR IV 02/11/24 14:00 02/29/24 05:52 10 ML Atorvastatin Calcium 40 mg HS PO 02/12/24 22:00 02/28/24 21:42 40 MG Pantoprazole Sodium 40 mg DAILY IV 02/13/24 10:00 02/29/24 07:54 40 MG Lactulose 30 ml Q8HR PO 02/13/24 12:00 02/28/24 15:15 30 ML Enteral Nutritional Formula 1,000 ml 45ML/HR GT 02/16/24 12:45 02/29/24 02:49 1,000 ML Acetylcysteine 200 mg Q8HR NEB 02/18/24 22:00 02/29/24 06:07 200 MG Albuterol 2.5 mg Q8HR NEB 02/18/24 22:00 02/29/24 06:07 2.5 MG Vancomycin HCl 0 ml @ 0 mls/hr UD IV 02/18/24 17:45 Diagnostic Test (Pha) 1 strip Q6HR 02/20/24 12:00 02/29/24 05:52 1 STRIP Insulin Human Regular Q6HR SC 02/20/24 12:00 02/28/24 13:03 2 UNITS Dextrose 50 ml UD PRN IV 02/20/24 08:45 Cefepime/Dextrose 50 ml @ 12.5 mls/hr Q24H IV 02/22/24 08:00 02/29/24 07:55 12.5 MLS/HR Hydralazine HCl 10 mg Q6HP PRN IV 02/24/24 12:45 02/24/24 21:33 10 MG Artificial Tears 1 drop Q4HR EACHEYE 02/24/24 16:00 02/29/24 07:54 1 DROP Aspirin 81 mg DAILY PO 02/25/24 10:00 02/29/24 07:55 81 MG Metoprolol Tartrate 25 mg DAILY PO 02/25/24 12:00 Hold 02/25/24 12:11 25 MG Norepinephrine Bitartrate 250 ml @ 0.938 mls/ hr Q24H IV 02/25/24 16:45 Fentanyl Citrate 250 ml @ 2.5 mls/hr Q24H IV 02/25/24 19:00 02/29/24 09:59 15 MLS/HR Enteral Nutritional Formula 27.5 gm BIDWM GT 02/28/24 18:00 Propofol 100 ml @ 3.45 mls/hr Q24H IV 02/28/24 21:45 03/06/24 21:45 02/29/24 09:58 13.8 MLS/HR Laboratory Results Laboratory Tests 02/29/24 03:20 Chemistry Test 02/29/24 03:20 Albumin 3.6 g/dL (3.2-4.8) Calcium Level 8.7 mg/dL (8.7-10.4) Total Protein 7.2 g/dL (5.7-8.2) LFT Test 02/29/24 03:20 Alanine Aminotransferase (ALT) 47 U/L (7-40) H Alkaline Phosphatase 155 U/L (46-116) H Aspartate Amino Transferase (AST) 40 U/L (13-40) Total Bilirubin 0.2 mg/dL (0.2-1.0) Urinalysis Test 02/20/24 14:57 Urine Color Brown (Yellow) H Urine Clarity Ex.turbid (Clear) Urine pH 5.5 (5.0-9.0) Urine Specific [place] 1.014 (1.001-1.035) Urine Protein 2+ (Negative) H Urine Ketones Negative (Negative) Urine Blood 3+ /uL (Negative) H Urine Nitrite Negative (Negative) Urine Bilirubin Negative (Negative) Urine Urobilinogen Normal mg/dL (Negative) Urine Leukocyte Esterase 1+ /uL (Negative) Urine RBC 124 /hpf (0 - 3) Urine WBC 107 /hpf (0 - 3) Urine Squamous Epithelial Cells Few /hpf (<5) Urine Bacteria Few /hpf (None Seen) H Urine Mucus Few (None Seen) Urine Creatinine 85.51 mg/dL (30.0-125.0) Urine Sodium 15 mmol/L (40-220) L Urine Glucose Normal mg/dL (Normal) Blood Gas Results Test 02/29/24 06:25 Arterial Blood pH 7.222 (7.350-7.450) FiO2 % 70.0 Microbiology Microbiology Date/Time Source Procedure Growth Status 02/19/24 10:50 Bronchial Washings Gram Stain - Final Complete 02/19/24 10:50 Respiratory Culture - Final Methicillin Resistant S.aureus Complete 02/14/24 12:04 Urine - [place] Urine Culture - Final Complete 02/12/24 13:30 Blood Blood Culture - Final NO GROWTH AFTER 5 DAYS OF INCUBATION. 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 Continuing with IV antibiotic. I signed consent with another physician for hemodialysis cath placed and also other procedure. Patient had no family member. Status post HD today and tolerate it. Continuing with ventilation support Continuing with cefepime and vancomycin Continuing with TPN Discuss with Dr. Canales, streetcar conductor regarding to potential of extubated versus PEG and trach. Consult for PEG and trach done. Patient probably need to go to LTACH. Per GI specialist, , the patient's potassium is high today. He delay the PEG tube until later. No PEG tube placement yet. The patient is supposed to have trach placement on Friday. Prognosis poor Plan discussed with: Other (RN) Date of Service: Feb 29, 2024 Billing Provider: DALE ROBERTSON MD Common Visit Codes: [id number] INP/OBS CARE(HIGH) DALE ROBERTSON MD Feb 29, 2024 10:11
[2024-02-29] MEDS: SODIUM CHL 0.9% 1000 ML BAG XX ONE (10:45)
[2024-02-29] MEDS ORDERED: FLUMAZENIL 0.1 MG/ML INJ 10ML MDV IV ONE (10:56)
[2024-02-29] MEDS ORDERED: NALOXONE HCL 0.4 MG/ML VIAL ONE (10:56)
[2024-02-29] MEDS ORDERED: MIDAZOLAM HCL 5 MG/ML-1ML VIAL ONE (10:56)
[2024-02-29] MEDS ORDERED: diphenhdrAMINE HCL 50 MG/1 ML VL ONE (10:57)
[2024-02-29] MEDS ORDERED: fentaNYL CITRATE 100 MCG/2 ML VL ONE (10:57)
--- NOTE | 2024-02-29 12:23 | DVHPN2 ---
Progress Note - Dictate Date Seen: Feb 29, 2024 Has the PT tested + for MRSA If YES, has PT been informed?: No Medical Necessity Reason Pt with a Central, PICC or Fol: Yes The following are medically ne: Central Line, Roblero Catheter Reason for roblero catheter: Strict I&O Subjective Patient is doing poorly still with respiratory support BUN creatinine and potassium are high and getting dialysis now Potassium is 6.7 vital signs Vital Sign Date Time Temp Pulse Resp B/P (MAP) Pulse Ox O2 Delivery O2 Flow Rate FiO2 02/29/24 11:52 45 02/29/24 11:52 26 99 Mechanical Ventilator+ 02/29/24 11:52 65 02/29/24 11:08 143/58 (86) 02/29/24 09:45 98.0 98.0 Total Intake and Output 02/28/24 02/28/24 02/29/24 15:00 23:00 07:00 Intake Total 289.04 ml 236.88 ml 391.4 ml Output Total 25 ml 20 ml Balance 289.04 ml 211.88 ml 371.4 ml medications Current Medications Medications Dose Ordered Sig/Theodora Route Start Time Stop Time Status Last Admin Dose Admin Midazolam HCl 50 ml @ 1 mls/hr Q24H IV 02/11/24 09:15 02/20/24 17:30 1 MLS/HR Sodium Chloride 10 ml Q8HR IV 02/11/24 14:00 02/29/24 05:52 10 ML Atorvastatin Calcium 40 mg HS PO 02/12/24 22:00 02/28/24 21:42 40 MG Pantoprazole Sodium 40 mg DAILY IV 02/13/24 10:00 02/29/24 07:54 40 MG Lactulose 30 ml Q8HR PO 02/13/24 12:00 02/28/24 15:15 30 ML Enteral Nutritional Formula 1,000 ml 45ML/HR GT 02/16/24 12:45 02/29/24 02:49 1,000 ML Acetylcysteine 200 mg Q8HR NEB 02/18/24 22:00 02/29/24 06:07 200 MG Albuterol 2.5 mg Q8HR NEB 02/18/24 22:00 02/29/24 06:07 2.5 MG Vancomycin HCl 0 ml @ 0 mls/hr UD IV 02/18/24 17:45 Diagnostic Test (Pha) 1 strip Q6HR 02/20/24 12:00 02/29/24 05:52 1 STRIP Insulin Human Regular Q6HR SC 02/20/24 12:00 02/28/24 13:03 2 UNITS Dextrose 50 ml UD PRN IV 02/20/24 08:45 Cefepime/Dextrose 50 ml @ 12.5 mls/hr Q24H IV 02/22/24 08:00 02/29/24 07:55 12.5 MLS/HR Hydralazine HCl 10 mg Q6HP PRN IV 02/24/24 12:45 02/24/24 21:33 10 MG Artificial Tears 1 drop Q4HR EACHEYE 02/24/24 16:00 02/29/24 07:54 1 DROP Aspirin 81 mg DAILY PO 02/25/24 10:00 02/29/24 07:55 81 MG Metoprolol Tartrate 25 mg DAILY PO 02/25/24 12:00 Hold 02/25/24 12:11 25 MG Norepinephrine Bitartrate 250 ml @ 0.938 mls/ hr Q24H IV 02/25/24 16:45 Fentanyl Citrate 250 ml @ 2.5 mls/hr Q24H IV 02/25/24 19:00 02/29/24 09:59 15 MLS/HR Enteral Nutritional Formula 27.5 gm BIDWM GT 02/28/24 18:00 Propofol 100 ml @ 3.45 mls/hr Q24H IV 02/28/24 21:45 03/06/24 21:45 02/29/24 09:58 13.8 MLS/HR objective Abdomen is soft nontender Still on the respirator laboratory and microbiology Laboratory Tests 02/29/24 03:20 Test 02/29/24 03:20 Range/Units Serum Glucose 114 H 74-106 mg/dL Assessment/Plan 69-year-old with history of respiratory failure intubated for PEG tube placement for long-term care Patient has no family hence unable to get any informed consent from family Patient is having problems with high potassium as well as abnormal renal functions on dialysis now Was planned to do PEG if possible if stable after getting the consent from 2 doctors if possible plan will hold off the plans for PEG now today will stabilize and ensure the potassium and other labs are reasonable I will be away from tomorrow Dr. Alok Obrien will be disease education specialist for next week and he could be contacted in consult to arrange the PEG tube when stable Thank you with warm regards DR Maguire Dietary Evaluation Review Comments: 1) Recommend CCHO-60, Cardiac 2gNa LoFat LoCholesterol diet when medically feasible. 2) If GI accessible but PO feeding is not an option, consider glucerna 1.2 @45ml/hr. In 24 hrs, pt will be receiving 65g protein and 1296 kcal.Adj and increase infusion rate as tolerated. 3) If NPO > 7 days and GI is not accesible, consider TPN to support 75% of her energy and protein needs. Expected Outcomes/Goals: Gradual weight loss, improved glucose Plan discussed with: Other VIJAY MAGUIRE MD Feb 29, 2024 12:23
[2024-02-29] MEDS: CATHFLO ACTIVASE (ALTEPLASE) 2 MG VIAL IV ONE (14:08)
--- NOTE | 2024-02-29 14:46 | DVHPN2 ---
Progress Note - Dictate Date Seen: Feb 29, 2024 Has the PT tested + for MRSA If YES, has PT been informed?: No Medical Necessity Reason Pt with a Central, PICC or Fol: Yes The following are medically ne: Central Line, Roblero Catheter Reason for roblero catheter: Strict I&O Subjective received medical therapy for hyperkalemia this morning, patient was seen earlier this afternoon and was receiving dialysis. vital signs Vital Sign Date Time Temp Pulse Resp B/P (MAP) Pulse Ox O2 Delivery O2 Flow Rate FiO2 02/29/24 14:15 45 02/29/24 14:15 26 99 Mechanical Ventilator+ 02/29/24 14:15 67 02/29/24 13:40 119/67 (84) 02/29/24 09:45 98.0 98.0 Total Intake and Output 02/28/24 02/28/24 02/29/24 15:00 23:00 07:00 Intake Total 289.04 ml 236.88 ml 391.4 ml Output Total 25 ml 20 ml Balance 289.04 ml 211.88 ml 371.4 ml medications Current Medications Medications Dose Ordered Sig/Theodora Route Start Time Stop Time Status Last Admin Dose Admin Midazolam HCl 50 ml @ 1 mls/hr Q24H IV 02/11/24 09:15 02/20/24 17:30 1 MLS/HR Sodium Chloride 10 ml Q8HR IV 02/11/24 14:00 02/29/24 12:50 10 ML Atorvastatin Calcium 40 mg HS PO 02/12/24 22:00 02/28/24 21:42 40 MG Pantoprazole Sodium 40 mg DAILY IV 02/13/24 10:00 02/29/24 07:54 40 MG Lactulose 30 ml Q8HR PO 02/13/24 12:00 02/28/24 15:15 30 ML Enteral Nutritional Formula 1,000 ml 45ML/HR GT 02/16/24 12:45 02/29/24 02:49 1,000 ML Acetylcysteine 200 mg Q8HR NEB 02/18/24 22:00 02/29/24 13:40 200 MG Albuterol 2.5 mg Q8HR NEB 02/18/24 22:00 02/29/24 13:40 2.5 MG Vancomycin HCl 0 ml @ 0 mls/hr UD IV 02/18/24 17:45 Diagnostic Test (Pha) 1 strip Q6HR 02/20/24 12:00 02/29/24 12:00 1 STRIP Insulin Human Regular Q6HR SC 02/20/24 12:00 02/28/24 13:03 2 UNITS Dextrose 50 ml UD PRN IV 02/20/24 08:45 Cefepime/Dextrose 50 ml @ 12.5 mls/hr Q24H IV 02/22/24 08:00 02/29/24 07:55 12.5 MLS/HR Hydralazine HCl 10 mg Q6HP PRN IV 02/24/24 12:45 02/24/24 21:33 10 MG Artificial Tears 1 drop Q4HR EACHEYE 02/24/24 16:00 02/29/24 12:50 1 DROP Aspirin 81 mg DAILY PO 02/25/24 10:00 02/29/24 07:55 81 MG Metoprolol Tartrate 25 mg DAILY PO 02/25/24 12:00 Hold 02/25/24 12:11 25 MG Norepinephrine Bitartrate 250 ml @ 0.938 mls/ hr Q24H IV 02/25/24 16:45 Fentanyl Citrate 250 ml @ 2.5 mls/hr Q24H IV 02/25/24 19:00 02/29/24 09:59 15 MLS/HR Enteral Nutritional Formula 27.5 gm BIDWM GT 02/28/24 18:00 Propofol 100 ml @ 3.45 mls/hr Q24H IV 02/28/24 21:45 03/06/24 21:45 02/29/24 09:58 13.8 MLS/HR objective Gen: Intubated lungs: Rhonchi cvs: no rub ext: no edema laboratory and microbiology Laboratory Tests 02/29/24 03:20 Test 02/29/24 03:20 Range/Units Serum Glucose 114 H 74-106 mg/dL Assessment/Plan Problem List/Assessment/Plan Assessment/Plan Acute kidney injury likely ATN due to hypotension + vancotoxicity Acute CVA no previous ckd acute respiratory failure with ARDS septic shock due to PNA bradycardia hypervolemic recs - dialysis against a 2K bath - UF as tolerated - Hemodialysis catheter functioning reasonably well today. Dietary Evaluation Review Comments: 1) Recommend CCHO-60, Cardiac 2gNa LoFat LoCholesterol diet when medically feasible. 2) If GI accessible but PO feeding is not an option, consider glucerna 1.2 @45ml/hr. In 24 hrs, pt will be receiving 65g protein and 1296 kcal.Adj and increase infusion rate as tolerated. 3) If NPO > 7 days and GI is not accesible, consider TPN to support 75% of her energy and protein needs. Expected Outcomes/Goals: Gradual weight loss, improved glucose Plan discussed with: Other TAE COSTA MD Feb 29, 2024 14:46
--- NOTE | 2024-02-29 15:10 | DVHNC2 ---
Procedure - Therapeutic Bronchoscopy procedure note: Indications: Right lower lobe atelectasis, Suspected mucous plugging. Medicines: See CLINICAL TRIAL COORDINATOR notes. Complications: None Procedure: Patient medications and allergies reviewed. The risks and benefits of the procedure and the sedation options and risks were discussed with another provider as patient has no NOK. All questions were answered and informed consent was obtained. Patient identification and proposed procedure were verified prior to the procedure by the physician, and a nurse, and the respiratory therapist in ICU room. The heart rate, respiratory rate, oxygen saturations, blood pressure, adequacy of pulmonary ventilation, and response to care were monitored throughout the procedure. The physical status of the patient was re-assessed after the procedure. After obtaining informed consent, the bronchoscope was introduced through the endotracheal tube and advanced into the trachea bronchial tree of both lungs. The procedure was accomplished without difficulty. The patient tolerated the procedure well. Findings: The trachea is in normal caliber. The [place] is sharp. The tracheobronchial tree of the right lung was examined to at least the first subsegmental level. The bronchial mucosa and anatomy in the right lung are normal. There are no endobronchial lesions. There was copious whitish secretions from right main stem bronchus onward throughout R1-R3 and R6-R10. These mucous plugs were removed. The left upper lobe, lingula, and left lower lobe were examined to at least the first subsegmental level. Bronchial mucosa and anatomy in the left upper lobe and lingula are normal. There were no endobronchial lesions. There was scant whitish secretions from throughout L1-L10. These were easily removed. There was no active bleeding at the completion of the procedure. Estimated blood loss: Less than 5 mL. Impression: Right lower lobe atelectasis due to mucous plugging Mucous plugging from R1-R3 and R6-R10 Recommendation: Pulmonary toileting. Procedure codes: 76266, therapeutic bronchoscopy, rigid and flexible, including fluoroscopic guidance, one performed; with bronchial endobronchial removal of mucous plugs, single or multiple sites ALEXANDER SCHWAB MD Feb 29, 2024 15:10
[2024-02-29] MEDS: GLYCOPYRROLATE 0.2 MG/ML 1ML VIAL IV ONE (15:30)
[2024-02-29 16:05] LABS: Hematocrit 38.8 % (41.0-53.0); Hemoglobin 13.3 g/dL (13.5-17.5); Mean Corpuscular Hemoglobin 29.5 pg (28.0-32.0); Mean Corpuscular Hgb Conc. 34.2 g/dL (32.0-36.0); Mean Corpuscular Volume 86.2 fL (80.0-100.0); Platelet Count (auto) 318 10^3/uL (140-450); White Blood Cell 15.6 10^3/uL (4.4-10.8)
[2024-02-29 16:07] LABS: Basophils % (manual) 0 (0.0-2.0); Blast Cells 0; Metamyelocytes % 0; Myelocytes % 0; Promyelocytes % 0; Reactive Lymphocytes 0
[2024-02-29 16:17] LABS: Chloride 95 mmol/L (98-107); Potassium 4.7 mmol/L (3.5-5.1); Sodium 135 mmol/L (136-145)
[2024-02-29 16:18] LABS: Anion Gap 16 (5-15); Carbon Dioxide 24 mmol/L (20-31)
[2024-02-29 16:23] LABS: BUN/Creatinine Ratio 13.9 (10.0-20.0); Glucose 119 mg/dL (74-106)
[2024-02-29 16:25] LABS: Blood Urea Nitrogen 67 mg/dL (9-23)
[2024-02-29 17:07] LABS: Band Neutrophils % (manual) 4; Eosinophils % (manual) 1 (0-7); Lymphocytes % (manual) 8 (10.0-50.0); Monocytes % (manual) 9 (0-12); Platelet Estimate Adequate
[2024-02-29] MEDS: VANCOMYCIN 500mg/100mL 100 ML IV ONE (17:28)
--- NOTE | 2024-02-29 22:57 | DVHPN2 ---
Progress Note - Dictate Date Seen: Feb 29, 2024 Has the PT tested + for MRSA If YES, has PT been informed?: No Medical Necessity Reason Pt with a Central, PICC or Fol: Yes The following are medically ne: Central Line, Roblero Catheter Reason for roblero catheter: Strict I&O Subjective Patient seen and examined at bedside. Sedated, intubated on mechanical ventilator. Overnight events reviewed. vital signs Vital Sign Date Time Temp Pulse Resp B/P (MAP) Pulse Ox O2 Delivery O2 Flow Rate FiO2 02/29/24 22:38 66 26 117/60 (79) 94 40 02/29/24 22:00 Mechanical Ventilator+ 02/29/24 20:01 97.9 97.9 Total Intake and Output 02/28/24 02/28/24 02/29/24 15:00 23:00 07:00 Intake Total 289.04 ml 236.88 ml 391.4 ml Output Total 25 ml 20 ml Balance 289.04 ml 211.88 ml 371.4 ml medications Current Medications Medications Dose Ordered Sig/Theodora Route Start Time Stop Time Status Last Admin Dose Admin Midazolam HCl 50 ml @ 1 mls/hr Q24H IV 02/11/24 09:15 02/20/24 17:30 1 MLS/HR Sodium Chloride 10 ml Q8HR IV 02/11/24 14:00 02/29/24 12:50 10 ML Atorvastatin Calcium 40 mg HS PO 02/12/24 22:00 02/29/24 21:30 40 MG Pantoprazole Sodium 40 mg DAILY IV 02/13/24 10:00 02/29/24 07:54 40 MG Lactulose 30 ml Q8HR PO 02/13/24 12:00 02/29/24 21:30 30 ML Enteral Nutritional Formula 1,000 ml 45ML/HR GT 02/16/24 12:45 02/29/24 02:49 1,000 ML Acetylcysteine 200 mg Q8HR NEB 02/18/24 22:00 02/29/24 18:33 200 MG Albuterol 2.5 mg Q8HR NEB 02/18/24 22:00 02/29/24 18:33 2.5 MG Diagnostic Test (Pha) 1 strip Q6HR 02/20/24 12:00 02/29/24 17:25 1 STRIP Insulin Human Regular Q6HR SC 02/20/24 12:00 02/29/24 17:23 2 UNITS Dextrose 50 ml UD PRN IV 02/20/24 08:45 Cefepime/Dextrose 50 ml @ 12.5 mls/hr Q24H IV 02/22/24 08:00 02/29/24 07:55 12.5 MLS/HR Hydralazine HCl 10 mg Q6HP PRN IV 02/24/24 12:45 02/24/24 21:33 10 MG Artificial Tears 1 drop Q4HR EACHEYE 02/24/24 16:00 02/29/24 16:28 1 DROP Aspirin 81 mg DAILY PO 02/25/24 10:00 02/29/24 07:55 81 MG Metoprolol Tartrate 25 mg DAILY PO 02/25/24 12:00 Hold 02/25/24 12:11 25 MG Norepinephrine Bitartrate 250 ml @ 0.938 mls/ hr Q24H IV 02/25/24 16:45 Fentanyl Citrate 250 ml @ 2.5 mls/hr Q24H IV 02/25/24 19:00 02/29/24 09:59 15 MLS/HR Enteral Nutritional Formula 27.5 gm BIDWM GT 02/28/24 18:00 Propofol 100 ml @ 3.45 mls/hr Q24H IV 02/28/24 21:45 03/06/24 21:45 02/29/24 16:35 13.8 MLS/HR objective Gen.: Patient lying in bed in medical ICU. Sedated, intubated on mechanical ventilator. Head: Normocephalic, atraumatic. Eyes: PERRLA. Ears: Normal external anatomy. Throat: Endotracheal tube and orogastric tube in place. Neck: Supple, trachea midline. Chest: Transmitted breath sounds bilaterally. Decreased air entry bilaterally. No wheezing. Bibasilar crackles. Cardiovascular: Positive S1, positive S2. Regular rate and rhythm. Abdomen: Positive bowel sounds in all 4 quadrants. Soft, nontender, nondistended. : Roblero in place. Normal external genitalia. Rectal: Deferred. Skin: Warm, dry. Intact. Extremities: 2+ radial pulses bilaterally. No lower extremity edema. Neuro: Sedated. laboratory and microbiology Laboratory Tests 02/29/24 15:53 Test 02/29/24 15:53 Range/Units Serum Glucose 119 H 74-106 mg/dL Assessment/Plan Impression: Acute hypoxic respiratory failure secondary to pneumonia and CHF exacerbation Acute on chronic hypercarbic respiratory failure Acute respiratory distress syndrome On mechanical ventilator Pneumonia, likely Gram-negative CHF exacerbation Pulmonary edema Obesity with a BMI of 32.6 Acute stroke Events: Remains on vent support On assist control with a respiratory rate of 26, tidal volume 550, PEEP of 10, FiO2 at 100%. Increased FiO2 requirements. Patient is s/p bronchoscopy, trach + PEG placement Obtained two-physician consent - patient has no NOK. Deemed medically necessary for tracheostomy + PEG tube placement to advance care. Therapeutic bronchoscopy deemed medically necessary to remove mucous plugs. S/p bronchoscopy with removal of RUL + RLL mucous plugs. See separate procedure note for full details. ABG reviewed, notable for acidemia d/t metabolic acidosis. CXR reviewed; multifocal airspace disease. No pleural effusion. No pneumothorax. Sedated on Fentanyl, Propofol drip. Continue antibiotics - cefepime/vancomycin. S/p HD today due to metabolic acidosis - removed 2 liters Nephrology recs appreciated. Monitor renal function Monitor electrolytes. Supplement as necessary. HD per Nephrology Tube feeds for nutritional support Labs and imaging reviewed. Rest of plan as noted below. Plan: s/p intubation on mechanical ventilator CT head notable for hypodense pretty 10 x 8 mm in size in the simon with the left side from strenuous for acute infarct. Chronic periventricular ischemic changes. Cerebral and cerebellar atrophy likely age-related. Recommend neurology evaluation. CXR image and report reviewed. Devices in place. Cardiomegaly. Small left pleural effusion. Diffuse interstitial opacities likely pulmonary edema. Initial ABG was notable for acute on chronic hypercarbic respiratory failure, PaCO2 63.4 mmHg Repeat ABG reviewed. Compensated. Poor PF ratio. S/p bronchoscopy w/ bronchoalveolar lavage and central line placement on 02/22. Please see separate procedure note for details. S/p bronchoscopy with right middle lobe bronchoalveolar lavage on 02/15/24. See procedure note for details. Vent settings; On assist control with a respiratory rate of 26, tidal volume 550, PEEP of 10, FiO2 at 100%. Titrate FIO2 to keep O2 saturation above 92%. VAP bundle Daily ABG and CXR while intubated. Sedate for ventilator synchrony Pressors as necessary for hemodynamic support. Titrate to keep MAP above 65 mmHg/SBP above 90 mmHg. Continue antibiotics. F/u cultures. Diurese to euvolemia. Monitor ins/outs. On Lasix BID. Monitor renal function due to acute kidney injury. Monitor electrolytes. Supplement as necessary. Nutritional support. Accucheks, ISS. GI/DVT prophylaxis. Condition: Critical Prognosis: Poor given multiple comorbidities. Rest of plan per hospitalist and other consultants. A total of 35 minutes of critical care time was spent reviewing the patient record, examining the patient, making a diagnostic and therapeutic plan, discussing this plan with the medical personnel, following up on diagnostic studies and following the patient for clinical stability excluding any and all procedures. At least 50% of this time was spent in direct, [id number] contact. Thank you GIORGI Huffman for allowing me to participate in this patient's care. Further recommendations will depend on patient's clinical course. Please do not hesitate to contact me if you have any questions or concerns. This medical document was created using an electronic medical record system with [employer] dictation system. Although this document has been carefully reviewed, there may still be some phonetic and typographical errors. These areas are purely typographical due to imperfections of the software programs, and do not reflect any compromise in the patient's medical care. Dietary Evaluation Review Comments: 1) Recommend CCHO-60, Cardiac 2gNa LoFat LoCholesterol diet when medically feasible. 2) If GI accessible but PO feeding is not an option, consider glucerna 1.2 @45ml/hr. In 24 hrs, pt will be receiving 65g protein and 1296 kcal.Adj and increase infusion rate as tolerated. 3) If NPO > 7 days and GI is not accesible, consider TPN to support 75% of her energy and protein needs. Expected Outcomes/Goals: Gradual weight loss, improved glucose Plan discussed with: Other (JESUS Trevizo) Critical Care Time(min): 35 ALEXANDER SCHWAB MD Feb 29, 2024 22:57
[2024-03-01] VITALS (116 sets, daily range): BP systolic 114–157; BP diastolic 42–74; PULSE 62–87; RESP 12–27; TEMP 97.7–99.1; O2SAT 87–99
[2024-03-01 04:25] LABS: Hematocrit 38.1 % (41.0-53.0); Hemoglobin 12.7 g/dL (13.5-17.5); Mean Corpuscular Hemoglobin 28.8 pg (28.0-32.0); Mean Corpuscular Hgb Conc. 33.2 g/dL (32.0-36.0); Mean Corpuscular Volume 86.9 fL (80.0-100.0); Platelet Count (auto) 318 10^3/uL (140-450); Red Blood Cells 4.39 10^6/uL (4.5-5.90); Red Cell Distribution Width 14.6 % (11.8-14.3); White Blood Cell 14.2 10^3/uL (4.4-10.8)
[2024-03-01 04:37] LABS: Basophils % (manual) 0 (0.0-2.0); Blast Cells 0; Metamyelocytes % 0; Myelocytes % 0; Promyelocytes % 0; Reactive Lymphocytes 0
[2024-03-01 04:41] LABS: INR 1.09 (0.9-1.15); Partial Thromboplastin Time 31.7 SEC (24.5-34.5); Prothrombin Time 11.5 sec (9.3-11.8)
[2024-03-01 04:51] LABS: Alanine Aminotransferase 57 U/L (7-40); Albumin 3.6 g/dL (3.2-4.8); Alkaline Phosphatase 169 U/L (46-116); Anion Gap 18 (5-15); Aspartate Aminotransferase 49 U/L (13-40); Carbon Dioxide 22 mmol/L (20-31); Chloride 94 mmol/L (98-107); Glucose 106 mg/dL (74-106); Sodium 134 mmol/L (136-145)
[2024-03-01 04:52] LABS: Bilirubin, Total 0.2 mg/dL (0.2-1.0); Total Protein 7.3 g/dL (5.7-8.2)
--- NOTE | 2024-03-01 05:02 | DVH ---
CHEST RADIOGRAPH Indication: VENTILATED Technique: Single frontal view of the chest was obtained COMPARISON: XY CHEST PORTABLE on DOS: 02/29/24, XY CHEST PORTABLE on DOS: 02/28/24, XY CHEST PORTABLE on DOS: 02/27/24, XY CHEST PORTABLE on DOS: 02/29/24 FINDINGS: Lines and Tubes: Endotracheal tube, enteric catheter and right central venous catheter in satisfactor y position. Lungs: Multifocal airspace disease. Pleura: No effusion. No pneumothorax. Cardiomediastinal contours: Unremarkable Bones: Unremarkable IMPRESSION: Lines and tubes in satisfactory position. No significant interval change.
[2024-03-01 05:06] LABS: Blood Urea Nitrogen 81 mg/dL (9-23)
[2024-03-01 06:01] LABS: Base Excess -4.2 mmol/L (-2.0-3.0)
[2024-03-01 07:04] LABS: Band Neutrophils % (manual) 2; Eosinophils % (manual) 6 (0-7); Lymphocytes % (manual) 10 (10.0-50.0); Monocytes % (manual) 5 (0-12); Platelet Estimate Adequate
[2024-03-01] MEDS ORDERED: fentaNYL CITRATE 100 MCG/2 ML VL ONE (07:22)
[2024-03-01] MEDS ORDERED: MIDAZOLAM HCL 2MG/2ML 2ml VIAL (1mg/ml) ONE (07:23)
[2024-03-01] MEDS ORDERED: DexAMETHasone SOD PHOS 10MG/1ML VIAL INJ ONE (07:37)
[2024-03-01] MEDS: BUPIVACAINE HCL 0.25% P/F 10 ML VIAL ONE (07:56)
[2024-03-01] MEDS: LIDOCAINE W/ EPINEPHRINE 1% 20ML VIAL ONE (07:56)
[2024-03-01] MEDS: CEFEPIME 1GM/ 50ML 50 ML IV ONE (07:56)
[2024-03-01] MEDS ORDERED: PROPOFOL 10 MG/ML 20 ML IV ONE (08:00)
--- NOTE | 2024-03-01 09:04 | DVH ---
CHEST RADIOGRAPH Indication: post tracheostomy Technique: Single frontal view of the chest was obtained Comparison: XY CHEST XRAY 1 VIEW on DOS: 03/01/24 FINDINGS: Lines and Tubes: Tracheostomy tube is unchanged. Right and left central venous catheters terminate i n the superior vena cava. Lungs: Pulmonary vascular congestion is noted. Pleura: No effusion. No pneumothorax. Cardiomediastinal contours: Stable. Bones: No acute osseous abnormality. IMPRESSION: 1. Stable position of the support lines and tubes. 2. Pulmonary vascular congestion.
--- NOTE | 2024-03-01 09:22 | DVHOP ---
DATE OF SURGERY: 03/01/2024 PREOPERATIVE DIAGNOSIS: Ventilator-dependent respiratory failure. POSTOPERATIVE DIAGNOSIS: Ventilator-dependent respiratory failure. SURGEON: Wing Gaspar MD FILTERING MACHINE TENDER: Gerber Enriquez. ANESTHESIA: General endotracheal. ANESTHESIOLOGIST: Dr. Hudson. PROCEDURE: Tracheostomy. DESCRIPTION OF PROCEDURE: Under general anesthesia with the patient's skin prepped and draped, a vertical incision was made into the anterior skin of the neck. Abundant adipose tissue was divided with electrocautery. The strap muscles divided in the midline and retracted laterally. The thyroid was displaced superiorly. The tracheal rings were exposed and following initiation of room air ventilation to avoid incidental airway fire, the trachea was entered with electrocautery. The tracheal cartilage was calcified and a rongeur had to be used to make the tracheotomy without the jagged edges. This was accomplished after the first tracheostomy tube was placed in the balloon ruptured. The tracheotomy was dilated and a size #8 nonfenestrated tracheostomy tube was advanced into its final position, at which point there was immediate capture of CO2 and return of normal gas exchange. The tracheostomy tube was secured with 2 interrupted Prolene sutures in a circumferential umbilical tape. The patient remained in unchanged clinical condition at the termination of the procedure. Chest x-ray was ordered and is pending at the time of this dictation. Wing Gaspar MD PF TID: [id number] RECEIPT: [id number]
--- NOTE | 2024-03-01 10:40 | DVHPN2 ---
Progress Note Date Seen: Mar 01, 2024 Has the PT tested + for MRSA If YES, has PT been informed?: No Medical Necessity Reason Pt with a Central, PICC or Fol: Yes The following are medically ne: Central Line, Roblero Catheter Reason for roblero catheter: Strict I&O Objective vital signs Vital Sign Date Time Temp Pulse Resp B/P (MAP) Pulse Ox O2 Delivery O2 Flow Rate FiO2 03/01/24 09:57 71 26 136/59 (84) 93 50 03/01/24 09:32 Mechanical Ventilator 03/01/24 04:01 98.7 98.7 Total Intake and Output 02/29/24 02/29/24 03/01/24 15:00 23:00 07:00 Intake Total 280.4 ml 396.6 ml 490.90 ml Output Total 200 ml 60 ml Balance 280.4 ml 196.6 ml 430.90 ml medications Current Medications Medications Dose Ordered Sig/Theodora Route Start Time Stop Time Status Last Admin Dose Admin Midazolam HCl 50 ml @ 1 mls/hr Q24H IV 02/11/24 09:15 02/20/24 17:30 1 MLS/HR Sodium Chloride 10 ml Q8HR IV 02/11/24 14:00 03/01/24 05:19 10 ML Atorvastatin Calcium 40 mg HS PO 02/12/24 22:00 02/29/24 21:30 40 MG Pantoprazole Sodium 40 mg DAILY IV 02/13/24 10:00 03/01/24 09:36 40 MG Lactulose 30 ml Q8HR PO 02/13/24 12:00 03/01/24 06:00 30 ML Enteral Nutritional Formula 1,000 ml 45ML/HR GT 02/16/24 12:45 02/29/24 02:49 1,000 ML Acetylcysteine 200 mg Q8HR NEB 02/18/24 22:00 03/01/24 06:28 200 MG Albuterol 2.5 mg Q8HR NEB 02/18/24 22:00 03/01/24 06:28 2.5 MG Diagnostic Test (Pha) 1 strip Q6HR 02/20/24 12:00 03/01/24 05:23 1 STRIP Insulin Human Regular Q6HR SC 02/20/24 12:00 02/29/24 17:23 2 UNITS Dextrose 50 ml UD PRN IV 02/20/24 08:45 Cefepime/Dextrose 50 ml @ 12.5 mls/hr Q24H IV 02/22/24 08:00 02/29/24 07:55 12.5 MLS/HR Hydralazine HCl 10 mg Q6HP PRN IV 02/24/24 12:45 02/24/24 21:33 10 MG Artificial Tears 1 drop Q4HR EACHEYE 02/24/24 16:00 03/01/24 09:36 1 DROP Aspirin 81 mg DAILY PO 02/25/24 10:00 03/01/24 09:36 81 MG Metoprolol Tartrate 25 mg DAILY PO 02/25/24 12:00 Hold 02/25/24 12:11 25 MG Norepinephrine Bitartrate 250 ml @ 0.938 mls/ hr Q24H IV 02/25/24 16:45 Fentanyl Citrate 250 ml @ 2.5 mls/hr Q24H IV 02/25/24 19:00 03/01/24 02:08 12.5 MLS/HR Enteral Nutritional Formula 27.5 gm BIDWM GT 02/28/24 18:00 Propofol 100 ml @ 3.45 mls/hr Q24H IV 02/28/24 21:45 03/06/24 21:45 03/01/24 02:05 10.35 MLS/HR laboratory and microbiology Laboratory Tests 03/01/24 03:00 Test 03/01/24 03:00 Range/Units Serum Glucose 106 74-106 mg/dL Problem List/Assessment/Plan Problem List/Assessment/Plan 03/01/24 reviewed cxr: tracheostomy in good location tip well above [place], no mediastinal enlargement, no pneumothorax. will sign off, please recall if needed Plan discussed with: Other Dietary Evaluation Review Comments: 1) Recommend CCHO-60, Cardiac 2gNa LoFat LoCholesterol diet when medically feasible. 2) If GI accessible but PO feeding is not an option, consider glucerna 1.2 @45ml/hr. In 24 hrs, pt will be receiving 65g protein and 1296 kcal.Adj and increase infusion rate as tolerated. 3) If NPO > 7 days and GI is not accesible, consider TPN to support 75% of her energy and protein needs. Expected Outcomes/Goals: Gradual weight loss, improved glucose SMITA MEDEIROS MD Mar 01, 2024 10:40
--- NOTE | 2024-03-01 15:54 | DVHPNRES ---
Progress Note Date Seen: Mar 01, 2024 Resident Creating Document: RIAZ KIDD RESIDENT Has the PT tested + for MRSA If YES, has PT been informed?: No Medical Necessity Reason Pt with a Central, PICC or Fol: Yes The following are medically ne: Central Line, Roblero Catheter Reason for roblero catheter: Strict I&O Subjective Review of Systems Patient is 78-year-old male with unknown medical history of brought to the hospital via EMS for hypertension and found to be outside at convenience store . During further evaluation emergency department, patient was diagnosed with acute stroke due to ischemia and pneumonia. Later patient was intubated on put on ventilator for worsening respiratory distress, protect of airway with diagnosis of acute stroke, pneumonia and CHF exacerbation. Past medical history: Unknown Past surgical history: Unknown Patient seen and examined in ICU. Patient is currently on ventilator. NO other complains. No other night events. Patient had tracheostomy today Objective vital signs Vital Sign Date Time Temp Pulse Resp B/P (MAP) Pulse Ox O2 Delivery O2 Flow Rate FiO2 03/01/24 15:31 40 03/01/24 15:31 25 93 Mechanical Ventilator+ 03/01/24 15:31 72 03/01/24 14:38 137/58 (84) 03/01/24 12:45 99.1 99.1 Total Intake and Output 02/29/24 02/29/24 03/01/24 15:00 23:00 07:00 Intake Total 280.4 ml 396.6 ml 490.90 ml Output Total 200 ml 60 ml Balance 280.4 ml 196.6 ml 430.90 ml medications Current Medications Medications Dose Ordered Sig/Theodora Route Start Time Stop Time Status Last Admin Dose Admin Midazolam HCl 50 ml @ 1 mls/hr Q24H IV 02/11/24 09:15 02/20/24 17:30 1 MLS/HR Sodium Chloride 10 ml Q8HR IV 02/11/24 14:00 03/01/24 14:00 10 ML Atorvastatin Calcium 40 mg HS PO 02/12/24 22:00 02/29/24 21:30 40 MG Pantoprazole Sodium 40 mg DAILY IV 02/13/24 10:00 03/01/24 09:36 40 MG Lactulose 30 ml Q8HR PO 02/13/24 12:00 03/01/24 14:00 30 ML Enteral Nutritional Formula 1,000 ml 45ML/HR GT 02/16/24 12:45 02/29/24 02:49 1,000 ML Acetylcysteine 200 mg Q8HR NEB 02/18/24 22:00 03/01/24 13:55 200 MG Albuterol 2.5 mg Q8HR NEB 02/18/24 22:00 03/01/24 13:55 2.5 MG Diagnostic Test (Pha) 1 strip Q6HR 02/20/24 12:00 03/01/24 12:00 1 STRIP Insulin Human Regular Q6HR SC 02/20/24 12:00 03/01/24 12:00 2 UNITS Dextrose 50 ml UD PRN IV 02/20/24 08:45 Cefepime/Dextrose 50 ml @ 12.5 mls/hr Q24H IV 02/22/24 08:00 02/29/24 07:55 12.5 MLS/HR Hydralazine HCl 10 mg Q6HP PRN IV 02/24/24 12:45 02/24/24 21:33 10 MG Artificial Tears 1 drop Q4HR EACHEYE 02/24/24 16:00 03/01/24 14:00 1 DROP Aspirin 81 mg DAILY PO 02/25/24 10:00 03/01/24 09:36 81 MG Metoprolol Tartrate 25 mg DAILY PO 02/25/24 12:00 Hold 02/25/24 12:11 25 MG Norepinephrine Bitartrate 250 ml @ 0.938 mls/ hr Q24H IV 02/25/24 16:45 Fentanyl Citrate 250 ml @ 2.5 mls/hr Q24H IV 02/25/24 19:00 03/01/24 02:08 12.5 MLS/HR Enteral Nutritional Formula 27.5 gm BIDWM GT 02/28/24 18:00 Propofol 100 ml @ 3.45 mls/hr Q24H IV 02/28/24 21:45 03/06/24 21:45 03/01/24 13:16 6.9 MLS/HR Examination GENERAL:Abnormal, LUNGS:Abnormal (Mchanically ventilated. Diminished lung sounds), CVS:Normal (Sinus bradycardia), MSK:Abnormal (Bilateral upper extremitiy edema), NEURO:Abnormal (Chemically sedated (Fentanyl and Propofol) laboratory and microbiology Laboratory Tests 03/01/24 03:00 Test 03/01/24 03:00 Range/Units Serum Glucose 106 74-106 mg/dL Microbiology Date/Time Source Procedure Growth Status 02/19/24 10:50 Bronchial Washings Gram Stain - Final Complete 02/19/24 10:50 Respiratory Culture - Final Methicillin Resistant S.aureus Complete 02/14/24 12:04 Urine - Roblero Port Urine Culture - Final Complete 02/12/24 13:30 Blood Blood Culture - Final NO GROWTH AFTER 5 DAYS OF INCUBATION. Complete 02/11/24 13:06 Nose MRSA Screen - Final Complete Problem List/Assessment/Plan Problem List/Assessment/Plan Acute hypoxic respiratory failure secondary to pneumonia and CHF exacerbation Acute on chronic hypercarbic respiratory failure Acute respiratory distress syndrome Left lower lobe pneumonia Gram-positive/Gram-negative Septic shock due to pneumonia Acute diastolic CHF Emphysema Pulmonary edema Hypertensive emergency Carotid artery stenosis: 50-69% stenosis left paroxysmal ICA DVT and PE ruled out Fatty liver Infrarenal aortic aneurysm:5.8 x 6.0 cm. Prostatomegaly Constipation Obesity Plan -on ventilator: Patient has tracheostomy on 03/01/24, FiO2 60 %, peep 5. -completed antibiotic with cefepime and vancomycin -Off vasopressor Levophed: Target map greater than 65. Of Levophed. -Discontinue IV furosemide 40 mg b.i.d.. Hydrocortisone 100 mg IV b.i.d. -echocardiogram: Left ventricular ejection fraction 60%, grade 1 diastolic dysfunction -neurology consultation: Aspirin, Lipitor. When stable: MRI of brain an, EEG. -cardiology consultation: Continue current management. -DVT prophylaxis: No anticoagulation for now as patient has bleeding -PUD prophylaxis: Protonix - waiting for PEG tube placement Critical Care time spent 71 minutes including patient care, chart review and updating family, excluding procedure. Plan discussed with Dr Estrella Plan discussed with: Other (RN) My Orders My Orders Orders - RIAZ KIDD RESIDENT Procedure Category Date Status Time Chest Xray 1 View XY 03/02/24 Logged 04:00 Enoxaparin Sodium PHA 03/02/24 Verified (Lovenox) 10:00 Dietary Evaluation Review Comments: 1) Recommend CCHO-60, Cardiac 2gNa LoFat LoCholesterol diet when medically feasible. 2) If GI accessible but PO feeding is not an option, consider glucerna 1.2 @45ml/hr. In 24 hrs, pt will be receiving 65g protein and 1296 kcal.Adj and increase infusion rate as tolerated. 3) If NPO > 7 days and GI is not accesible, consider TPN to support 75% of her energy and protein needs. Expected Outcomes/Goals: Gradual weight loss, improved glucose Date of Service: Mar 01, 2024 Billing Provider: ESTELLE ESTRELLA MD Common Visit Codes: [id number] CARE 30-74 MIN RIAZ KIDD RESIDENT Mar 01, 2024 15:54 ESTELLE ESTRELLA MD Mar 04, 2024 13:47
--- NOTE | 2024-03-01 16:20 | DVHPN2 ---
Progress Note Date Seen: Mar 01, 2024 Has the PT tested + for MRSA If YES, has PT been informed?: No Medical Necessity Reason Pt with a Central, PICC or Fol: Yes The following are medically ne: Central Line, Roblero Catheter Reason for roblero catheter: Strict I&O Subjective Review of Systems: RESPIRATORY:Abnormal Other Systems: Patient seen and examined by myself in follow-up today, patient remained Objective vital signs Vital Sign Date Time Temp Pulse Resp B/P (MAP) Pulse Ox O2 Delivery O2 Flow Rate FiO2 03/01/24 16:04 73 26 149/57 (87) 91 50 03/01/24 15:31 Mechanical Ventilator+ 03/01/24 12:45 99.1 99.1 Total Intake and Output 02/29/24 02/29/24 03/01/24 15:00 23:00 07:00 Intake Total 280.4 ml 396.6 ml 490.90 ml Output Total 200 ml 60 ml Balance 280.4 ml 196.6 ml 430.90 ml medications Current Medications Medications Dose Ordered Sig/Theodora Route Start Time Stop Time Status Last Admin Dose Admin Midazolam HCl 50 ml @ 1 mls/hr Q24H IV 02/11/24 09:15 02/20/24 17:30 1 MLS/HR Sodium Chloride 10 ml Q8HR IV 02/11/24 14:00 03/01/24 14:00 10 ML Atorvastatin Calcium 40 mg HS PO 02/12/24 22:00 02/29/24 21:30 40 MG Pantoprazole Sodium 40 mg DAILY IV 02/13/24 10:00 03/01/24 09:36 40 MG Lactulose 30 ml Q8HR PO 02/13/24 12:00 03/01/24 14:00 30 ML Enteral Nutritional Formula 1,000 ml 45ML/HR GT 02/16/24 12:45 02/29/24 02:49 1,000 ML Acetylcysteine 200 mg Q8HR NEB 02/18/24 22:00 03/01/24 13:55 200 MG Albuterol 2.5 mg Q8HR NEB 02/18/24 22:00 03/01/24 13:55 2.5 MG Diagnostic Test (Pha) 1 strip Q6HR 02/20/24 12:00 03/01/24 12:00 1 STRIP Insulin Human Regular Q6HR SC 02/20/24 12:00 03/01/24 12:00 2 UNITS Dextrose 50 ml UD PRN IV 02/20/24 08:45 Hydralazine HCl 10 mg Q6HP PRN IV 02/24/24 12:45 02/24/24 21:33 10 MG Artificial Tears 1 drop Q4HR EACHEYE 02/24/24 16:00 03/01/24 14:00 1 DROP Aspirin 81 mg DAILY PO 02/25/24 10:00 03/01/24 09:36 81 MG Metoprolol Tartrate 25 mg DAILY PO 02/25/24 12:00 Hold 02/25/24 12:11 25 MG Norepinephrine Bitartrate 250 ml @ 0.938 mls/ hr Q24H IV 02/25/24 16:45 Fentanyl Citrate 250 ml @ 2.5 mls/hr Q24H IV 02/25/24 19:00 03/01/24 02:08 12.5 MLS/HR Enteral Nutritional Formula 27.5 gm BIDWM GT 02/28/24 18:00 Propofol 100 ml @ 3.45 mls/hr Q24H IV 02/28/24 21:45 03/06/24 21:45 03/01/24 13:16 6.9 MLS/HR Enoxaparin Sodium 40 mg DAILY SC 03/02/24 10:00 UNV Examination: LUNGS:Normal (Intubated on ventilator), CVS:Normal, MSK:Normal laboratory and microbiology Laboratory Tests 03/01/24 03:00 Test 03/01/24 03:00 Range/Units Serum Glucose 106 74-106 mg/dL Microbiology Date/Time Source Procedure Growth Status 02/19/24 10:50 Bronchial Washings Gram Stain - Final Complete 02/19/24 10:50 Respiratory Culture - Final Methicillin Resistant S.aureus Complete 02/14/24 12:04 Urine - Roblero Port Urine Culture - Final Complete 02/12/24 13:30 Blood Blood Culture - Final NO GROWTH AFTER 5 DAYS OF INCUBATION. Complete 02/11/24 13:06 Nose MRSA Screen - Final Complete Problem List/Assessment/Plan Problem List/Assessment/Plan Acute kidney injury likely ATN due to hypotension + vancotoxicity , oliguric requiring initiation of hemodialysis Acute respiratory failure, patient intubated on ventilator Acute CVA septic shock Pneumonia bradycardia, resolved Recommendations Hemodialysis tomorrow Roblero catheter Strict I&Os Fluid restrictions Avoid nephrotoxic medications DC vancomycin IV pressors for blood pressure support We will continue to follow Plan discussed with: Other My Orders My Orders Orders - GUERO OLSEN MD Procedure Category Date Status Time Basic Metabolic Panel LAB 03/02/24 Verified 04:00 Complete Blood Count LAB 03/02/24 Verified 04:00 Dietary Evaluation Review Comments: 1) Recommend CCHO-60, Cardiac 2gNa LoFat LoCholesterol diet when medically feasible. 2) If GI accessible but PO feeding is not an option, consider glucerna 1.2 @45ml/hr. In 24 hrs, pt will be receiving 65g protein and 1296 kcal.Adj and increase infusion rate as tolerated. 3) If NPO > 7 days and GI is not accesible, consider TPN to support 75% of her energy and protein needs. Expected Outcomes/Goals: Gradual weight loss, improved glucose GUERO OLSEN MD Mar 01, 2024 16:20
[2024-03-01] MEDS: DOPamine 1600MCG/ML D5W 250 ML IV SCH (16:53)
[2024-03-01] MEDS: HEPARIN SODIUM (PORCINE) 5000 UNITS/ML 1ML VIAL SC SCH (22:00)
[2024-03-02] VITALS (97 sets, daily range): BP systolic 88–178; BP diastolic 52–88; PULSE 53–105; RESP 14–28; TEMP 98.1–99.3; O2SAT 88–97
[2024-03-02 04:20] LABS: Hematocrit 37.5 % (41.0-53.0); Hemoglobin 12.6 g/dL (13.5-17.5); Mean Corpuscular Hemoglobin 29.4 pg (28.0-32.0); Mean Corpuscular Hgb Conc. 33.5 g/dL (32.0-36.0); Mean Corpuscular Volume 87.7 fL (80.0-100.0); Platelet Count (auto) 299 10^3/uL (140-450); Red Blood Cells 4.28 10^6/uL (4.5-5.90); Red Cell Distribution Width 14.8 % (11.8-14.3); White Blood Cell 17.5 10^3/uL (4.4-10.8)
[2024-03-02 04:24] LABS: Chloride 95 mmol/L (98-107); Sodium 135 mmol/L (136-145)
[2024-03-02 04:25] LABS: Anion Gap 21 (5-15); Carbon Dioxide 19 mmol/L (20-31)
[2024-03-02 04:26] LABS: Calcium 8.9 mg/dL (8.7-10.4)
[2024-03-02 04:30] LABS: Glucose 115 mg/dL (74-106)
[2024-03-02 04:31] LABS: BUN/Creatinine Ratio 15.1 (10.0-20.0)
[2024-03-02 04:32] LABS: Basophils % (manual) 0 (0.0-2.0); Blast Cells 0; Eosinophils % (manual) 0 (0-7); Metamyelocytes % 0; Myelocytes % 0; Promyelocytes % 0; Reactive Lymphocytes 0
[2024-03-02 04:40] LABS: Blood Urea Nitrogen 104 mg/dL (9-23)
--- NOTE | 2024-03-02 04:50 | DVH ---
CHEST RADIOGRAPH Indication: intubated Technique: Single frontal view of the chest was obtained Comparison: XY CHEST XRAY 1 VIEW on DOS: 03/01/24, XY CHEST XRAY 1 VIEW on DOS: 03/01/24, XY CHEST PO RTABLE on DOS: 02/29/24 IMPRESSION: Low lung volumes. The heart is enlarged. Support lines and tubes appear unchanged in satisfactory i n position. Moderate pulmonary vascular congestion similar to prior examination. Possible trace righ t pleural effusion with subsegmental atelectasis of the right lung base. No pneumothorax.
[2024-03-02 06:22] LABS: Band Neutrophils % (manual) 1; Lymphocytes % (manual) 6 (10.0-50.0); Monocytes % (manual) 10 (0-12)
[2024-03-02 06:23] LABS: Platelet Estimate Adequate
[2024-03-02] MEDS: SODIUM CHL 0.9% 1000 ML BAG XX ONE (07:00)
[2024-03-02 08:15] LABS: Base Excess -6.2 mmol/L (-2.0-3.0)
[2024-03-02] MEDS ORDERED: ENOXAPARIN SOD 40 MG/0.4 ML SYRINGE SC SCH (10:00)
--- NOTE | 2024-03-02 12:43 | DVHPN2 ---
Progress Note Date Seen: Mar 02, 2024 Has the PT tested + for MRSA If YES, has PT been informed?: No Medical Necessity Reason Pt with a Central, PICC or Fol: Yes The following are medically ne: Central Line, Roblero Catheter Reason for roblero catheter: Strict I&O Subjective Review of Systems: RESPIRATORY:Abnormal Other Systems: Patient seen and examined by myself today in follow-up Patient examined hemodialysis, blood pressure stable Objective vital signs Vital Sign Date Time Temp Pulse Resp B/P (MAP) Pulse Ox O2 Delivery O2 Flow Rate FiO2 03/02/24 11:48 26 95 Mechanical Ventilator+ 70 70 03/02/24 11:48 59 03/02/24 10:02 98.1 143/60 (87) 98.1 Total Intake and Output 03/01/24 03/01/24 03/02/24 15:00 23:00 07:00 Intake Total 118.3 ml 319.825 ml 511.950 ml Output Total 10 ml 100 ml Balance 118.3 ml 309.825 ml 411.950 ml medications Current Medications Medications Dose Ordered Sig/Theodora Route Start Time Stop Time Status Last Admin Dose Admin Midazolam HCl 50 ml @ 1 mls/hr Q24H IV 02/11/24 09:15 02/20/24 17:30 1 MLS/HR Sodium Chloride 10 ml Q8HR IV 02/11/24 14:00 03/02/24 05:30 10 ML Atorvastatin Calcium 40 mg HS PO 02/12/24 22:00 03/01/24 21:26 40 MG Pantoprazole Sodium 40 mg DAILY IV 02/13/24 10:00 03/02/24 09:32 40 MG Lactulose 30 ml Q8HR PO 02/13/24 12:00 03/02/24 05:30 30 ML Enteral Nutritional Formula 1,000 ml 45ML/HR GT 02/16/24 12:45 02/29/24 02:49 1,000 ML Acetylcysteine 200 mg Q8HR NEB 02/18/24 22:00 03/02/24 06:28 200 MG Albuterol 2.5 mg Q8HR NEB 02/18/24 22:00 03/02/24 06:27 2.5 MG Diagnostic Test (Pha) 1 strip Q6HR 02/20/24 12:00 03/02/24 11:18 1 STRIP Insulin Human Regular Q6HR SC 02/20/24 12:00 03/01/24 12:00 2 UNITS Dextrose 50 ml UD PRN IV 02/20/24 08:45 Hydralazine HCl 10 mg Q6HP PRN IV 02/24/24 12:45 02/24/24 21:33 10 MG Artificial Tears 1 drop Q4HR EACHEYE 02/24/24 16:00 03/02/24 08:01 1 DROP Aspirin 81 mg DAILY PO 02/25/24 10:00 03/01/24 09:36 81 MG Metoprolol Tartrate 25 mg DAILY PO 02/25/24 12:00 Hold 02/25/24 12:11 25 MG Norepinephrine Bitartrate 250 ml @ 0.938 mls/ hr Q24H IV 02/25/24 16:45 Fentanyl Citrate 250 ml @ 2.5 mls/hr Q24H IV 02/25/24 19:00 03/01/24 21:28 10 MLS/HR Enteral Nutritional Formula 27.5 gm BIDWM GT 02/28/24 18:00 03/01/24 17:46 27.5 GM Propofol 100 ml @ 3.45 mls/hr Q24H IV 02/28/24 21:45 03/06/24 21:45 03/02/24 09:32 6.9 MLS/HR Dopamine HCl/ Dextrose 250 ml @ 8.925 mls/ hr Q24H IV 03/01/24 16:30 03/01/24 16:53 8.925 MLS/HR Heparin Sodium (Porcine) 5,000 units Q12HR SC 03/01/24 22:00 Examination: LUNGS:Normal, CVS:Normal, MSK:Abnormal laboratory and microbiology Laboratory Tests 03/02/24 03:35 Test 03/02/24 03:35 Range/Units Serum Glucose 115 H 74-106 mg/dL Microbiology Date/Time Source Procedure Growth Status 02/19/24 10:50 Bronchial Washings Gram Stain - Final Complete 02/19/24 10:50 Respiratory Culture - Final Methicillin Resistant S.aureus Complete 02/14/24 12:04 Urine - Robelro Port Urine Culture - Final Complete 02/12/24 13:30 Blood Blood Culture - Final NO GROWTH AFTER 5 DAYS OF INCUBATION. Complete 02/11/24 13:06 Nose MRSA Screen - Final Complete Problem List/Assessment/Plan Problem List/Assessment/Plan Acute kidney injury due to hemodynamic mediated, FeNa < 1%, oliguric requiring initiation of hemodialysis Acute respiratory failure, patient intubated on ventilator Acute CVA septic shock Pneumonia bradycardia, resolved Recommendations Continue with UF to 3 L as tolerated Patient remained oliguric less than 100 cc last night Roblero catheter Strict I&Os Fluid restrictions Low-dose dopamine Avoid nephrotoxic medications DC vancomycin IV pressors for blood pressure support We will continue to follow Plan discussed with: Other (Nurse) My Orders My Orders Orders - GUERO OLSEN MD Procedure Category Date Status Time Hemodialysis Orders ORDERS 03/02/24 Transmitted 07:00 Dialysis Nursing TELLY 03/02/24 In Process Message 07:00 Document Fluid Input TELLY 03/02/24 In Process And Outpu 07:00 Dopamine 1600mcg/Ml PHA 03/01/24 In Process [id number] 16:30 Dietary Evaluation Review Comments: 1) Recommend CCHO-60, Cardiac 2gNa LoFat LoCholesterol diet when medically feasible. 2) If GI accessible but PO feeding is not an option, consider glucerna 1.2 @45ml/hr. In 24 hrs, pt will be receiving 65g protein and 1296 kcal.Adj and increase infusion rate as tolerated. 3) If NPO > 7 days and GI is not accesible, consider TPN to support 75% of her energy and protein needs. Expected Outcomes/Goals: Gradual weight loss, improved glucose GUERO OLSEN MD Mar 02, 2024 12:42
--- NOTE | 2024-03-02 13:37 | DVHPN2 ---
Subjective Patient is status post tracheostomy Seen by Dr. Maguire, for possible PEG placement, tentatively plan for last Friday, which could not be done due to patient not being stable Patient will be dialyzed today Heparin being held right now Patient has no family Reviewed: Care Plan, H&P, Labs, Medications, Previous Orders, Radiology Changes from previous H/P or p: No Changes Respiratory: Shortness of breath Objective Vitals Vital Signs Date Time Temp Pulse Resp B/P (MAP) Pulse Ox O2 Delivery O2 Flow Rate FiO2 03/02/24 11:48 26 95 Mechanical Ventilator+ 70 70 03/02/24 11:48 59 03/02/24 10:02 98.1 143/60 (87) 98.1 Intake/Output Intake and Output 03/02/24 07:00 Intake Total 950.075 ml Output Total 110 ml Balance 840.075 ml Intake Oral 140 ml IV Total 602.075 ml Tube Feeding 208 ml Output Urine Total 110 ml # Bowel Movements 2 General Appearance: Other (intubated and sedated) HEENT: PERRLA, Other (small pupils no reaction to light) Lungs: Clear to auscultation, Normal air movement, Other Cardiovascular: Regular rate, Normal S1, Normal S2, No murmurs, Gallops, Rubs, Other Abdomen: Normal bowel sounds, Soft, No tenderness, No hepatospenomegaly, No masses, Other (obese) Extremities: No edema Neuro: Other (sedated // intubated//no response top noxious stimulii/per nursing at sedation breaks has cough and gag reflex) Psych/Mental Status: Other (Sedated and intubated, unable to exam) Medications Current Medications Medications Dose Ordered Sig/Theodora Route Start Time Stop Time Status Last Admin Dose Admin Midazolam HCl 50 ml @ 1 mls/hr Q24H IV 02/11/24 09:15 02/20/24 17:30 1 MLS/HR Sodium Chloride 10 ml Q8HR IV 02/11/24 14:00 03/02/24 13:24 10 ML Atorvastatin Calcium 40 mg HS PO 02/12/24 22:00 03/01/24 21:26 40 MG Pantoprazole Sodium 40 mg DAILY IV 02/13/24 10:00 03/02/24 09:32 40 MG Lactulose 30 ml Q8HR PO 02/13/24 12:00 03/02/24 13:24 30 ML Enteral Nutritional Formula 1,000 ml 45ML/HR GT 02/16/24 12:45 02/29/24 02:49 1,000 ML Acetylcysteine 200 mg Q8HR NEB 02/18/24 22:00 03/02/24 06:28 200 MG Albuterol 2.5 mg Q8HR NEB 02/18/24 22:00 03/02/24 06:27 2.5 MG Diagnostic Test (Pha) 1 strip Q6HR 02/20/24 12:00 03/02/24 11:18 1 STRIP Insulin Human Regular Q6HR SC 02/20/24 12:00 03/01/24 12:00 2 UNITS Dextrose 50 ml UD PRN IV 02/20/24 08:45 Hydralazine HCl 10 mg Q6HP PRN IV 02/24/24 12:45 02/24/24 21:33 10 MG Artificial Tears 1 drop Q4HR EACHEYE 02/24/24 16:00 03/02/24 13:24 1 DROP Aspirin 81 mg DAILY PO 02/25/24 10:00 03/01/24 09:36 81 MG Metoprolol Tartrate 25 mg DAILY PO 02/25/24 12:00 Hold 02/25/24 12:11 25 MG Norepinephrine Bitartrate 250 ml @ 0.938 mls/ hr Q24H IV 02/25/24 16:45 Fentanyl Citrate 250 ml @ 2.5 mls/hr Q24H IV 02/25/24 19:00 03/01/24 21:28 10 MLS/HR Enteral Nutritional Formula 27.5 gm BIDWM GT 02/28/24 18:00 03/01/24 17:46 27.5 GM Propofol 100 ml @ 3.45 mls/hr Q24H IV 02/28/24 21:45 03/06/24 21:45 03/02/24 09:32 6.9 MLS/HR Dopamine HCl/ Dextrose 250 ml @ 8.925 mls/ hr Q24H IV 03/01/24 16:30 03/01/24 16:53 8.925 MLS/HR Heparin Sodium (Porcine) 5,000 units Q12HR SC 03/01/24 22:00 Laboratory Results Laboratory Tests 03/02/24 03:35 Chemistry Test 03/02/24 03:35 Calcium Level 8.9 mg/dL (8.7-10.4) Urinalysis Test 02/20/24 14:57 Urine Color Brown (Yellow) H Urine Clarity Ex.turbid (Clear) Urine pH 5.5 (5.0-9.0) Urine Specific [place] 1.014 (1.001-1.035) Urine Protein 2+ (Negative) H Urine Ketones Negative (Negative) Urine Blood 3+ /uL (Negative) H Urine Nitrite Negative (Negative) Urine Bilirubin Negative (Negative) Urine Urobilinogen Normal mg/dL (Negative) Urine Leukocyte Esterase 1+ /uL (Negative) Urine RBC 124 /hpf (0 - 3) Urine WBC 107 /hpf (0 - 3) Urine Squamous Epithelial Cells Few /hpf (<5) Urine Bacteria Few /hpf (None Seen) H Urine Mucus Few (None Seen) Urine Creatinine 85.51 mg/dL (30.0-125.0) Urine Sodium 15 mmol/L (40-220) L Urine Glucose Normal mg/dL (Normal) Blood Gas Results Test 03/02/24 08:07 Arterial Blood pH 7.344 (7.350-7.450) FiO2 % 70.0 Microbiology Microbiology Date/Time Source Procedure Growth Status 02/19/24 10:50 Bronchial Washings Gram Stain - Final Complete 02/19/24 10:50 Respiratory Culture - Final Methicillin Resistant S.aureus Complete 02/14/24 12:04 Urine - [place] Urine Culture - Final Complete 02/12/24 13:30 Blood Blood Culture - Final NO GROWTH AFTER 5 DAYS OF INCUBATION. Complete 02/11/24 13:06 Nose MRSA Screen - Final Complete Labs and/or images reviewed: Labs reviewed by me, Image(s) reviewed by me Assessment/Plan Assessment/Plan Acute respiratory failure Acute CVA Septic shock Pneumonia Peg placement Plan: Discussed with Dr. Obrien Monitor labs. Continue to hold heparin dosing Possible plan for PEG placement in the next few days Discussed plan with RN Plan discussed with: Other (RN) Date of Service: Mar 02, 2024 Billing Provider: MOSES PERALES Common Visit Codes: [id number] INP/OBS CARE(HIGH) MOSES PERALES Mar 02, 2024 13:37
--- NOTE | 2024-03-02 14:55 | DVHPNRES ---
Progress Note Date Seen: Mar 02, 2024 Resident Creating Document: RIAZ KIDD RESIDENT Has the PT tested + for MRSA If YES, has PT been informed?: No Medical Necessity Reason Pt with a Central, PICC or Fol: Yes The following are medically ne: Central Line, Roblero Catheter Reason for roblero catheter: Strict I&O Subjective Review of Systems Patient is 78-year-old male with unknown medical history of brought to the hospital via EMS for hypertension and found to be outside at convenience store . During further evaluation emergency department, patient was diagnosed with acute stroke due to ischemia and pneumonia. Later patient was intubated on put on ventilator for worsening respiratory distress, protect of airway with diagnosis of acute stroke, pneumonia and CHF exacerbation. Past medical history: Unknown Past surgical history: Unknown Patient seen and examined in ICU. Patient is currently on ventilator. NO other complains. No other night events. Patient had tracheostomy on 03/01/24 Objective vital signs Vital Sign Date Time Temp Pulse Resp B/P (MAP) Pulse Ox O2 Delivery O2 Flow Rate FiO2 03/02/24 14:20 71 26 156/52 (86) 93 70 03/02/24 13:47 98.1 98.1 03/02/24 13:33 Mechanical Ventilator+ Total Intake and Output 03/01/24 03/01/24 03/02/24 15:00 23:00 07:00 Intake Total 118.3 ml 319.825 ml 511.950 ml Output Total 10 ml 100 ml Balance 118.3 ml 309.825 ml 411.950 ml medications Current Medications Medications Dose Ordered Sig/Theodora Route Start Time Stop Time Status Last Admin Dose Admin Midazolam HCl 50 ml @ 1 mls/hr Q24H IV 02/11/24 09:15 02/20/24 17:30 1 MLS/HR Sodium Chloride 10 ml Q8HR IV 02/11/24 14:00 03/02/24 13:24 10 ML Atorvastatin Calcium 40 mg HS PO 02/12/24 22:00 03/01/24 21:26 40 MG Pantoprazole Sodium 40 mg DAILY IV 02/13/24 10:00 03/02/24 09:32 40 MG Lactulose 30 ml Q8HR PO 02/13/24 12:00 03/02/24 13:24 30 ML Enteral Nutritional Formula 1,000 ml 45ML/HR GT 02/16/24 12:45 02/29/24 02:49 1,000 ML Acetylcysteine 200 mg Q8HR NEB 02/18/24 22:00 03/02/24 14:20 200 MG Albuterol 2.5 mg Q8HR NEB 02/18/24 22:00 03/02/24 14:20 2.5 MG Diagnostic Test (Pha) 1 strip Q6HR 02/20/24 12:00 03/02/24 11:18 1 STRIP Insulin Human Regular Q6HR SC 02/20/24 12:00 03/01/24 12:00 2 UNITS Dextrose 50 ml UD PRN IV 02/20/24 08:45 Hydralazine HCl 10 mg Q6HP PRN IV 02/24/24 12:45 02/24/24 21:33 10 MG Artificial Tears 1 drop Q4HR EACHEYE 02/24/24 16:00 03/02/24 13:24 1 DROP Aspirin 81 mg DAILY PO 02/25/24 10:00 03/01/24 09:36 81 MG Metoprolol Tartrate 25 mg DAILY PO 02/25/24 12:00 Hold 02/25/24 12:11 25 MG Norepinephrine Bitartrate 250 ml @ 0.938 mls/ hr Q24H IV 02/25/24 16:45 Fentanyl Citrate 250 ml @ 2.5 mls/hr Q24H IV 02/25/24 19:00 03/01/24 21:28 10 MLS/HR Enteral Nutritional Formula 27.5 gm BIDWM GT 02/28/24 18:00 03/01/24 17:46 27.5 GM Propofol 100 ml @ 3.45 mls/hr Q24H IV 02/28/24 21:45 03/06/24 21:45 03/02/24 09:32 6.9 MLS/HR Dopamine HCl/ Dextrose 250 ml @ 8.925 mls/ hr Q24H IV 03/01/24 16:30 03/01/24 16:53 8.925 MLS/HR Heparin Sodium (Porcine) 5,000 units Q12HR SC 03/01/24 22:00 Examination GENERAL:Abnormal, LUNGS:Abnormal (Mchanically ventilated. Diminished lung sounds), CVS:Normal (Sinus bradycardia), MSK:Abnormal (Bilateral upper extremitiy edema), NEURO:Abnormal (Chemically sedated (Fentanyl and Propofol) laboratory and microbiology Laboratory Tests 03/02/24 03:35 Test 03/02/24 03:35 Range/Units Serum Glucose 115 H 74-106 mg/dL Microbiology Date/Time Source Procedure Growth Status 02/19/24 10:50 Bronchial Washings Gram Stain - Final Complete 02/19/24 10:50 Respiratory Culture - Final Methicillin Resistant S.aureus Complete 02/14/24 12:04 Urine - [place] Urine Culture - Final Complete 02/12/24 13:30 Blood Blood Culture - Final NO GROWTH AFTER 5 DAYS OF INCUBATION. Complete 02/11/24 13:06 Nose MRSA Screen - Final Complete Problem List/Assessment/Plan Problem List/Assessment/Plan Acute hypoxic respiratory failure secondary to pneumonia and CHF exacerbation Acute on chronic hypercarbic respiratory failure Acute respiratory distress syndrome Left lower lobe pneumonia Gram-positive/Gram-negative Septic shock due to pneumonia Acute diastolic CHF Emphysema Pulmonary edema Hypertensive emergency Carotid artery stenosis: 50-69% stenosis left paroxysmal ICA DVT and PE ruled out Fatty liver Infrarenal aortic aneurysm:5.8 x 6.0 cm. Prostatomegaly Constipation Obesity Plan -on ventilator: Patient has tracheostomy on 03/01/24, FiO2 70 %, peep 5. -completed antibiotic with cefepime and vancomycin -Off vasopressor Levophed: Target map greater than 65. Of Levophed. -Discontinue IV furosemide 40 mg b.i.d.. Hydrocortisone 100 mg IV b.i.d. -echocardiogram: Left ventricular ejection fraction 60%, grade 1 diastolic dysfunction -neurology consultation: Aspirin, Lipitor. When stable: MRI of brain an, EEG. -cardiology consultation: Continue current management. -DVT prophylaxis: No anticoagulation for now as patient has bleeding -PUD prophylaxis: Protonix Critical Care time spent 56 minutes including patient care, chart review and updating family, excluding procedure. Plan discussed with Dr Estrella Plan discussed with: Other (RN) My Orders My Orders Orders - RIAZ KIDD RESIDENT Procedure Category Date Status Time Chest Xray 1 View XY 03/02/24 Resulted 04:00 Heparin Sodium PHA 03/01/24 In Process (Porcine) 22:00 Dietary Evaluation Review Comments: 1) Recommend CCHO-60, Cardiac 2gNa LoFat LoCholesterol diet when medically feasible. 2) If GI accessible but PO feeding is not an option, consider glucerna 1.2 @45ml/hr. In 24 hrs, pt will be receiving 65g protein and 1296 kcal.Adj and increase infusion rate as tolerated. 3) If NPO > 7 days and GI is not accesible, consider TPN to support 75% of her energy and protein needs. Expected Outcomes/Goals: Gradual weight loss, improved glucose Date of Service: Mar 02, 2024 Billing Provider: ESTELLE ESTRELLA MD Common Visit Codes: [id number] CARE 30-74 MIN RIAZ KIDD RESIDENT Mar 02, 2024 14:55 ESTELLE ESTRELLA MD Mar 04, 2024 13:48
[2024-03-02] MEDS: ALBUMIN 25% 100 ML IV SCH (20:00)
[2024-03-03] VITALS (114 sets, daily range): BP systolic 107–170; BP diastolic 49–97; PULSE 68–89; RESP 16–28; TEMP 96.8–99.1; O2SAT 87–97
[2024-03-03 04:23] LABS: Alanine Aminotransferase 67 U/L (7-40); Albumin 3.9 g/dL (3.2-4.8); Alkaline Phosphatase 171 U/L (46-116); Anion Gap 21 (5-15); Aspartate Aminotransferase 62 U/L (13-40); BUN/Creatinine Ratio 13.4 (10.0-20.0); Bilirubin, Total 0.2 mg/dL (0.2-1.0); Calcium 9.3 mg/dL (8.7-10.4); Carbon Dioxide 21 mmol/L (20-31); Chloride 94 mmol/L (98-107); Glucose 101 mg/dL (74-106); Potassium 4.5 mmol/L (3.5-5.1); Sodium 136 mmol/L (136-145); Total Protein 7.7 g/dL (5.7-8.2)
--- NOTE | 2024-03-03 04:46 | DVH ---
CHEST RADIOGRAPH Indication: intubated Technique: Single frontal view of the chest was obtained COMPARISON: XY CHEST XRAY 1 VIEW on DOS: 03/02/24, XY CHEST XRAY 1 VIEW on DOS: 03/01/24, XY CHEST XR AY 1 VIEW on DOS: 03/01/24 FINDINGS: Lines and Tubes: Tracheostomy, enteric catheter, right central venous catheter in satisfactory positi ons. Left central venous catheter unchanged in position. Lungs: Multifocal airspace disease. Pleura: No effusion. No pneumothorax. Cardiomediastinal contours: Unremarkable Bones: Unremarkable IMPRESSION: Lines and tubes in satisfactory position. No significant interval change.
[2024-03-03 04:51] LABS: Blood Urea Nitrogen 81 mg/dL (9-23)
[2024-03-03 05:18] LABS: Hematocrit 38.9 % (41.0-53.0); Hemoglobin 13.1 g/dL (13.5-17.5); Mean Corpuscular Hemoglobin 29.3 pg (28.0-32.0); Mean Corpuscular Hgb Conc. 33.7 g/dL (32.0-36.0); Mean Corpuscular Volume 86.8 fL (80.0-100.0); Platelet Count (auto) 301 10^3/uL (140-450); Red Blood Cells 4.49 10^6/uL (4.5-5.90); Red Cell Distribution Width 14.6 % (11.8-14.3); White Blood Cell 19.9 10^3/uL (4.4-10.8)
[2024-03-03 05:24] LABS: Basophils % (manual) 0 (0.0-2.0); Blast Cells 0; Eosinophils % (manual) 0 (0-7); Metamyelocytes % 0; Myelocytes % 0; Promyelocytes % 0; Reactive Lymphocytes 0
[2024-03-03 07:15] LABS: Band Neutrophils % (manual) 1; Lymphocytes % (manual) 4 (10.0-50.0); Monocytes % (manual) 8 (0-12); Platelet Estimate Adequate; RBC Morphology Normal
[2024-03-03 07:40] LABS: Base Excess -4.6 mmol/L (-2.0-3.0)
--- NOTE | 2024-03-03 11:34 | DVHPN2 ---
Progress Note Date Seen: Mar 03, 2024 Has the PT tested + for MRSA If YES, has PT been informed?: No Medical Necessity Reason Pt with a Central, PICC or Fol: Yes The following are medically ne: Central Line, Roblero Catheter Reason for roblero catheter: Strict I&O Subjective Review of Systems: RESPIRATORY:Abnormal Other Systems: Patient seen and examined by myself today in follow-up, patient remained intubated on ventilator Objective vital signs Vital Sign Date Time Temp Pulse Resp B/P (MAP) Pulse Ox O2 Delivery O2 Flow Rate FiO2 03/03/24 10:06 77 26 137/73 91 95 03/03/24 06:00 Mechanical Ventilator+ 03/03/24 04:00 99.1 99.1 Total Intake and Output 03/02/24 03/02/24 03/03/24 15:00 23:00 07:00 Intake Total 246.600 ml 353.500 ml 534.075 ml Output Total 100 ml 38 ml Balance 246.600 ml 253.500 ml 496.075 ml medications Current Medications Medications Dose Ordered Sig/Theodora Route Start Time Stop Time Status Last Admin Dose Admin Midazolam HCl 50 ml @ 1 mls/hr Q24H IV 02/11/24 09:15 02/20/24 17:30 1 MLS/HR Sodium Chloride 10 ml Q8HR IV 02/11/24 14:00 03/03/24 06:05 10 ML Atorvastatin Calcium 40 mg HS PO 02/12/24 22:00 03/02/24 21:28 40 MG Pantoprazole Sodium 40 mg DAILY IV 02/13/24 10:00 03/03/24 09:42 40 MG Lactulose 30 ml Q8HR PO 02/13/24 12:00 03/03/24 06:26 30 ML Enteral Nutritional Formula 1,000 ml 45ML/HR GT 02/16/24 12:45 03/03/24 03:31 1,000 ML Acetylcysteine 200 mg Q8HR NEB 02/18/24 22:00 03/03/24 06:32 200 MG Albuterol 2.5 mg Q8HR NEB 02/18/24 22:00 03/03/24 06:32 2.5 MG Diagnostic Test (Pha) 1 strip Q6HR 02/20/24 12:00 03/03/24 10:58 1 STRIP Insulin Human Regular Q6HR SC 02/20/24 12:00 03/03/24 11:01 2 UNITS Dextrose 50 ml UD PRN IV 02/20/24 08:45 Hydralazine HCl 10 mg Q6HP PRN IV 02/24/24 12:45 02/24/24 21:33 10 MG Artificial Tears 1 drop Q4HR EACHEYE 02/24/24 16:00 03/03/24 09:42 1 DROP Aspirin 81 mg DAILY PO 02/25/24 10:00 03/03/24 09:41 81 MG Metoprolol Tartrate 25 mg DAILY PO 02/25/24 12:00 Hold 02/25/24 12:11 25 MG Norepinephrine Bitartrate 250 ml @ 0.938 mls/ hr Q24H IV 02/25/24 16:45 Fentanyl Citrate 250 ml @ 2.5 mls/hr Q24H IV 02/25/24 19:00 03/02/24 18:42 15 MLS/HR Enteral Nutritional Formula 27.5 gm BIDWM GT 02/28/24 18:00 03/02/24 17:07 27.5 GM Propofol 100 ml @ 3.45 mls/hr Q24H IV 02/28/24 21:45 03/06/24 21:45 03/02/24 23:57 13.8 MLS/HR Dopamine HCl/ Dextrose 250 ml @ 8.925 mls/ hr Q24H IV 03/01/24 16:30 03/02/24 16:30 8.925 MLS/HR Heparin Sodium (Porcine) 5,000 units Q12HR SC 03/01/24 22:00 Examination: LUNGS:Normal, CVS:Normal, MSK:Normal laboratory and microbiology Laboratory Tests 03/03/24 05:10 03/03/24 03:00 Test 03/03/24 03:00 Range/Units Serum Glucose 101 74-106 mg/dL Microbiology Date/Time Source Procedure Growth Status 02/19/24 10:50 Bronchial Washings Gram Stain - Final Complete 02/19/24 10:50 Respiratory Culture - Final Methicillin Resistant S.aureus Complete 02/14/24 12:04 Urine - [place] Urine Culture - Final Complete 02/12/24 13:30 Blood Blood Culture - Final NO GROWTH AFTER 5 DAYS OF INCUBATION. Complete 02/11/24 13:06 Nose MRSA Screen - Final Complete Problem List/Assessment/Plan Problem List/Assessment/Plan Acute kidney injury due to hemodynamic mediated, FeNa < 1%, oliguric requiring initiation of hemodialysis Acute respiratory failure, patient intubated on ventilator Acute CVA septic shock Pneumonia bradycardia, resolved Recommendations Hemodialysis tomorrow Patient remained oliguric less than 100 cc last night Roblero catheter Strict I&Os Fluid restrictions Low-dose dopamine Avoid nephrotoxic medications DC vancomycin IV pressors for blood pressure support We will continue to follow Plan discussed with: Other (Nurse) Dietary Evaluation Review Comments: 1) Recommend CCHO-60, Cardiac 2gNa LoFat LoCholesterol diet when medically feasible. 2) If GI accessible but PO feeding is not an option, consider glucerna 1.2 @45ml/hr. In 24 hrs, pt will be receiving 65g protein and 1296 kcal.Adj and increase infusion rate as tolerated. 3) If NPO > 7 days and GI is not accesible, consider TPN to support 75% of her energy and protein needs. Expected Outcomes/Goals: Gradual weight loss, improved glucose GUERO OLSEN MD Mar 03, 2024 11:34
--- NOTE | 2024-03-03 13:16 | DVHPNRES ---
Progress Note Date Seen: Mar 03, 2024 Resident Creating Document: RIAZ KIDD RESIDENT Has the PT tested + for MRSA If YES, has PT been informed?: No Medical Necessity Reason Pt with a Central, PICC or Fol: Yes The following are medically ne: Central Line, Roblero Catheter Reason for roblero catheter: Strict I&O Subjective Review of Systems Patient is 78-year-old male with unknown medical history of brought to the hospital via EMS for hypertension and found to be outside at [employer] store . During further evaluation emergency department, patient was diagnosed with acute stroke due to ischemia and pneumonia. Later patient was intubated on put on ventilator for worsening respiratory distress, protect of airway with diagnosis of acute stroke, pneumonia and CHF exacerbation. Past medical history: Unknown Past surgical history: Unknown Patient seen and examined in ICU. Patient is currently on ventilator. NO other complains. No other night events. Patient had tracheostomy on 03/01/24. Patient's blood pressure is elevated today we will restart lisinopril. Objective vital signs Vital Sign Date Time Temp Pulse Resp B/P (MAP) Pulse Ox O2 Delivery O2 Flow Rate FiO2 03/03/24 11:35 76 26 133/66 (88) 90 95 03/03/24 06:00 Mechanical Ventilator+ 03/03/24 04:00 99.1 99.1 Total Intake and Output 03/02/24 03/02/24 03/03/24 15:00 23:00 07:00 Intake Total 246.600 ml 353.500 ml 534.075 ml Output Total 100 ml 38 ml Balance 246.600 ml 253.500 ml 496.075 ml medications Current Medications Medications Dose Ordered Sig/Theodora Route Start Time Stop Time Status Last Admin Dose Admin Midazolam HCl 50 ml @ 1 mls/hr Q24H IV 02/11/24 09:15 02/20/24 17:30 1 MLS/HR Sodium Chloride 10 ml Q8HR IV 02/11/24 14:00 03/03/24 06:05 10 ML Atorvastatin Calcium 40 mg HS PO 02/12/24 22:00 03/02/24 21:28 40 MG Pantoprazole Sodium 40 mg DAILY IV 02/13/24 10:00 03/03/24 09:42 40 MG Lactulose 30 ml Q8HR PO 02/13/24 12:00 03/03/24 06:26 30 ML Enteral Nutritional Formula 1,000 ml 45ML/HR GT 02/16/24 12:45 03/03/24 03:31 1,000 ML Acetylcysteine 200 mg Q8HR NEB 02/18/24 22:00 03/03/24 06:32 200 MG Albuterol 2.5 mg Q8HR NEB 02/18/24 22:00 03/03/24 06:32 2.5 MG Diagnostic Test (Pha) 1 strip Q6HR 02/20/24 12:00 03/03/24 10:58 1 STRIP Insulin Human Regular Q6HR SC 02/20/24 12:00 03/03/24 11:01 2 UNITS Dextrose 50 ml UD PRN IV 02/20/24 08:45 Hydralazine HCl 10 mg Q6HP PRN IV 02/24/24 12:45 02/24/24 21:33 10 MG Artificial Tears 1 drop Q4HR EACHEYE 02/24/24 16:00 03/03/24 09:42 1 DROP Aspirin 81 mg DAILY PO 02/25/24 10:00 03/03/24 09:41 81 MG Metoprolol Tartrate 25 mg DAILY PO 02/25/24 12:00 Hold 02/25/24 12:11 25 MG Norepinephrine Bitartrate 250 ml @ 0.938 mls/ hr Q24H IV 02/25/24 16:45 Fentanyl Citrate 250 ml @ 2.5 mls/hr Q24H IV 02/25/24 19:00 03/02/24 18:42 15 MLS/HR Enteral Nutritional Formula 27.5 gm BIDWM GT 02/28/24 18:00 03/02/24 17:07 27.5 GM Propofol 100 ml @ 3.45 mls/hr Q24H IV 02/28/24 21:45 03/06/24 21:45 03/02/24 23:57 13.8 MLS/HR Dopamine HCl/ Dextrose 250 ml @ 8.925 mls/ hr Q24H IV 03/01/24 16:30 03/02/24 16:30 8.925 MLS/HR Heparin Sodium (Porcine) 5,000 units Q12HR SC 03/01/24 22:00 Examination GENERAL:Abnormal, LUNGS:Abnormal (Mchanically ventilated. Diminished lung sounds), CVS:Normal (Sinus bradycardia), MSK:Abnormal (Bilateral upper extremitiy edema), NEURO:Abnormal (Chemically sedated (Fentanyl and Propofol) laboratory and microbiology Laboratory Tests 03/03/24 05:10 03/03/24 03:00 Test 03/03/24 03:00 Range/Units Serum Glucose 101 74-106 mg/dL Microbiology Date/Time Source Procedure Growth Status 02/19/24 10:50 Bronchial Washings Gram Stain - Final Complete 02/19/24 10:50 Respiratory Culture - Final Methicillin Resistant S.aureus Complete 02/14/24 12:04 Urine - [place] Urine Culture - Final Complete 02/12/24 13:30 Blood Blood Culture - Final NO GROWTH AFTER 5 DAYS OF INCUBATION. Complete 02/11/24 13:06 Nose MRSA Screen - Final Complete Problem List/Assessment/Plan Problem List/Assessment/Plan Acute hypoxic respiratory failure secondary to pneumonia and CHF exacerbation Acute on chronic hypercarbic respiratory failure Acute respiratory distress syndrome Left lower lobe pneumonia Gram-positive/Gram-negative Septic shock due to pneumonia Acute diastolic CHF Emphysema Pulmonary edema Hypertensive emergency Carotid artery stenosis: 50-69% stenosis left paroxysmal ICA DVT and PE ruled out Fatty liver Infrarenal aortic aneurysm:5.8 x 6.0 cm. Prostatomegaly Constipation Obesity Plan -on ventilator: Patient has tracheostomy on 03/01/24, FiO2 70 %, peep 5. -completed antibiotic with cefepime and vancomycin -Off vasopressor Levophed: Target map greater than 65. Of Levophed. -Discontinue IV furosemide 40 mg b.i.d.. Hydrocortisone 100 mg IV b.i.d. -echocardiogram: Left ventricular ejection fraction 60%, grade 1 diastolic dysfunction -neurology consultation: Aspirin, Lipitor. When stable: MRI of brain an, EEG. -cardiology consultation: Continue current management. - nephrology consultation: Patient is on dialysis. -DVT prophylaxis: No anticoagulation for now as patient has bleeding -PUD prophylaxis: Protonix - Critical Care time spent 56 minutes including patient care, chart review and updating family, excluding procedure. Plan discussed with Dr Estrella Plan discussed with: Other (RN) My Orders My Orders Orders - RIAZ KIDD RESIDENT Procedure Category Date Status Time Abg W/ Co-Ox RT 03/03/24 Logged 04:00 Chest Xray 1 View XY 03/03/24 Resulted 04:00 Dietary Evaluation Review Comments: 1) Recommend CCHO-60, Cardiac 2gNa LoFat LoCholesterol diet when medically feasible. 2) If GI accessible but PO feeding is not an option, consider glucerna 1.2 @45ml/hr. In 24 hrs, pt will be receiving 65g protein and 1296 kcal.Adj and increase infusion rate as tolerated. 3) If NPO > 7 days and GI is not accesible, consider TPN to support 75% of her energy and protein needs. Expected Outcomes/Goals: Gradual weight loss, improved glucose Date of Service: Mar 03, 2024 Billing Provider: ESTELLE ESTRELLA MD Common Visit Codes: [id number] CARE 30-74 MIN RIAZ KIDD RESIDENT Mar 03, 2024 13:16 ESTELLE ESTRELLA MD Mar 04, 2024 13:50
--- NOTE | 2024-03-03 13:21 | DVHPN2 ---
Subjective Patient is status post tracheostomy Seen by Dr. Maguire, for possible PEG placement, tentatively plan for last Friday, which could not be done due to patient not being stable Patient will be dialyzed today Heparin being held right now Patient has no family Reviewed: Care Plan, H&P, Labs, Medications, Previous Orders, Radiology Changes from previous H/P or p: No Changes Respiratory: Shortness of breath Objective Vitals Vital Signs Date Time Temp Pulse Resp B/P (MAP) Pulse Ox O2 Delivery O2 Flow Rate FiO2 03/03/24 11:35 76 26 133/66 (88) 90 95 03/03/24 06:00 Mechanical Ventilator+ 03/03/24 04:00 99.1 99.1 Intake/Output Intake and Output 03/03/24 06:59 Intake Total 1165.000 ml Output Total 138 ml Balance 1027.000 ml Intake Oral 220 ml IV Total 795.000 ml Tube Feeding 150 ml Output Urine Total 138 ml # Bowel Movements 1 General Appearance: Other (intubated and sedated) HEENT: PERRLA, Other (small pupils no reaction to light) Lungs: Clear to auscultation Cardiovascular: Regular rate Abdomen: Normal bowel sounds, Soft Extremities: No edema Neuro: Other (sedated // intubated//no response top noxious stimulii/per nursing at sedation breaks has cough and gag reflex) Psych/Mental Status: Other (Sedated and intubated, unable to exam) Medications Current Medications Medications Dose Ordered Sig/Theodora Route Start Time Stop Time Status Last Admin Dose Admin Midazolam HCl 50 ml @ 1 mls/hr Q24H IV 02/11/24 09:15 02/20/24 17:30 1 MLS/HR Sodium Chloride 10 ml Q8HR IV 02/11/24 14:00 03/03/24 06:05 10 ML Atorvastatin Calcium 40 mg HS PO 02/12/24 22:00 03/02/24 21:28 40 MG Pantoprazole Sodium 40 mg DAILY IV 02/13/24 10:00 03/03/24 09:42 40 MG Lactulose 30 ml Q8HR PO 02/13/24 12:00 03/03/24 06:26 30 ML Enteral Nutritional Formula 1,000 ml 45ML/HR GT 02/16/24 12:45 03/03/24 03:31 1,000 ML Acetylcysteine 200 mg Q8HR NEB 02/18/24 22:00 03/03/24 06:32 200 MG Albuterol 2.5 mg Q8HR NEB 02/18/24 22:00 03/03/24 06:32 2.5 MG Diagnostic Test (Pha) 1 strip Q6HR 02/20/24 12:00 03/03/24 10:58 1 STRIP Insulin Human Regular Q6HR SC 02/20/24 12:00 03/03/24 11:01 2 UNITS Dextrose 50 ml UD PRN IV 02/20/24 08:45 Hydralazine HCl 10 mg Q6HP PRN IV 02/24/24 12:45 02/24/24 21:33 10 MG Artificial Tears 1 drop Q4HR EACHEYE 02/24/24 16:00 03/03/24 09:42 1 DROP Aspirin 81 mg DAILY PO 02/25/24 10:00 03/03/24 09:41 81 MG Metoprolol Tartrate 25 mg DAILY PO 02/25/24 12:00 Hold 02/25/24 12:11 25 MG Norepinephrine Bitartrate 250 ml @ 0.938 mls/ hr Q24H IV 02/25/24 16:45 Fentanyl Citrate 250 ml @ 2.5 mls/hr Q24H IV 02/25/24 19:00 03/02/24 18:42 15 MLS/HR Enteral Nutritional Formula 27.5 gm BIDWM GT 02/28/24 18:00 03/02/24 17:07 27.5 GM Propofol 100 ml @ 3.45 mls/hr Q24H IV 02/28/24 21:45 03/06/24 21:45 03/02/24 23:57 13.8 MLS/HR Dopamine HCl/ Dextrose 250 ml @ 8.925 mls/ hr Q24H IV 03/01/24 16:30 03/02/24 16:30 8.925 MLS/HR Heparin Sodium (Porcine) 5,000 units Q12HR SC 03/01/24 22:00 Laboratory Results Laboratory Tests 03/03/24 03:00 03/03/24 05:10 Chemistry Test 03/03/24 03:00 Albumin 3.9 g/dL (3.2-4.8) Calcium Level 9.3 mg/dL (8.7-10.4) Total Protein 7.7 g/dL (5.7-8.2) LFT Test 03/03/24 03:00 Alanine Aminotransferase (ALT) 67 U/L (7-40) H Alkaline Phosphatase 171 U/L (46-116) H Aspartate Amino Transferase (AST) 62 U/L (13-40) H Total Bilirubin 0.2 mg/dL (0.2-1.0) Urinalysis Test 02/20/24 14:57 Urine Color Brown (Yellow) H Urine Clarity Ex.turbid (Clear) Urine pH 5.5 (5.0-9.0) Urine Specific [place] 1.014 (1.001-1.035) Urine Protein 2+ (Negative) H Urine Ketones Negative (Negative) Urine Blood 3+ /uL (Negative) H Urine Nitrite Negative (Negative) Urine Bilirubin Negative (Negative) Urine Urobilinogen Normal mg/dL (Negative) Urine Leukocyte Esterase 1+ /uL (Negative) Urine RBC 124 /hpf (0 - 3) Urine WBC 107 /hpf (0 - 3) Urine Squamous Epithelial Cells Few /hpf (<5) Urine Bacteria Few /hpf (None Seen) H Urine Mucus Few (None Seen) Urine Creatinine 85.51 mg/dL (30.0-125.0) Urine Sodium 15 mmol/L (40-220) L Urine Glucose Normal mg/dL (Normal) Blood Gas Results Test 03/03/24 07:30 Arterial Blood pH 7.363 (7.350-7.450) FiO2 % 90.0 Microbiology Microbiology Date/Time Source Procedure Growth Status 02/19/24 10:50 Bronchial Washings Gram Stain - Final Complete 02/19/24 10:50 Respiratory Culture - Final Methicillin Resistant S.aureus Complete 02/14/24 12:04 Urine - [place] Urine Culture - Final Complete 02/12/24 13:30 Blood Blood Culture - Final NO GROWTH AFTER 5 DAYS OF INCUBATION. Complete 02/11/24 13:06 Nose MRSA Screen - Final Complete Labs and/or images reviewed: Labs reviewed by me, Image(s) reviewed by me Assessment/Plan Assessment/Plan Acute respiratory failure Acute CVA Septic shock Pneumonia Peg placement Plan: Discussed with Dr. Obrien Monitor labs. Continue to hold heparin dosing. Hold asa Possible plan for EGD c PEG placement tomorrow 03/03/2024 Discussed plan with RN Plan discussed with: Other (RN) My Orders Orders - MOSES PERALES Procedure Category Date Status Time Obtain Consent For: ORDERS 03/03/24 Transmitted 12:19 Obtain Consent For TELLY 03/03/24 In Process Anesthesia 12:19 Date of Service: Mar 03, 2024 Billing Provider: MOSES PERALES Common Visit Codes: [id number] INP/OBS CARE(HIGH) MOSES PERALES Mar 03, 2024 13:21
[2024-03-03] MEDS: HEPARIN 1,000 UNITS/ml 1ML VIAL ONE (18:34)
[2024-03-03] MEDS: HEPARIN SODIUM (PORCINE) 5000 UNITS/ML 1ML VIAL ONE (18:34)
[2024-03-04] VITALS (111 sets, daily range): BP systolic 96–151; BP diastolic 47–69; PULSE 70–110; RESP 20–28; TEMP 98–98.9; O2SAT 88–96
[2024-03-04 04:00] LABS: Basophils # (auto) 0 10 ^3/uL (0-0.2); Basophils % (auto) 0.3 % (0.0-2.0); Eosinophils % (auto) 5.3 % (0.0-7.0); Hematocrit 35.5 % (41.0-53.0); Lymphocytes # (auto) 1.4 10 ^3/uL (0.4-5.4); Lymphocytes % (auto) 7.8 % (10.0-50.0); Mean Corpuscular Hemoglobin 29.3 pg (28.0-32.0); Mean Corpuscular Hgb Conc. 33.7 g/dL (32.0-36.0); Mean Corpuscular Volume 86.9 fL (80.0-100.0); Monocytes # (auto) 1.4 10 ^3/uL (0-1.3); Monocytes % (auto) 7.7 % (0.0-12.0); Neutrophils # (auto) 14.5 10 ^3/uL (1.6-8.6); Neutrophils % (auto) 78.9 % (37.0-80.0); Platelet Count (auto) 281 10^3/uL (140-450); Red Blood Cells 4.08 10^6/uL (4.5-5.90); Red Cell Distribution Width 14.5 % (11.8-14.3); White Blood Cell 18.3 10^3/uL (4.4-10.8)
[2024-03-04 04:27] LABS: Albumin 3.4 g/dL (3.2-4.8); Anion Gap 21 (5-15); BUN/Creatinine Ratio 14.8 (10.0-20.0); Glucose 99 mg/dL (74-106)
[2024-03-04 04:28] LABS: Total Protein 7.1 g/dL (5.7-8.2)
[2024-03-04 04:29] LABS: Carbon Dioxide 19 mmol/L (20-31); Chloride 94 mmol/L (98-107); Potassium 5.1 mmol/L (3.5-5.1); Sodium 134 mmol/L (136-145)
[2024-03-04 04:30] LABS: Alanine Aminotransferase 74 U/L (7-40); Alkaline Phosphatase 151 U/L (46-116); Aspartate Aminotransferase 50 U/L (13-40); Bilirubin, Total 0.2 mg/dL (0.2-1.0)
[2024-03-04 04:35] LABS: Blood Urea Nitrogen 103 mg/dL (9-23)
--- NOTE | 2024-03-04 05:41 | DVH ---
CHEST RADIOGRAPH Indication: Intubated Technique: Single frontal view of the chest was obtained Comparison: XY CHEST XRAY 1 VIEW on DOS: 03/03/24, XY CHEST XRAY 1 VIEW on DOS: 03/02/24, XY CHEST XR AY 1 VIEW on DOS: 03/01/24 IMPRESSION: There are low lung volumes with mild pulmonary vascular congestion. Obscuration of the left lung base May relate to small effusion or atelectasis. Support lines and tubes appear unchanged in satisfactor y position. No pneumothorax.
[2024-03-04 06:23] LABS: Base Excess -7.7 mmol/L (-2.0-3.0)
[2024-03-04] MEDS: SODIUM CHL 0.9% 1000 ML BAG XX ONE (07:00)
[2024-03-04 08:42] LABS: INR 1.13 (0.9-1.15); Partial Thromboplastin Time 52.8 SEC (24.5-34.5); Prothrombin Time 11.9 sec (9.3-11.8)
[2024-03-04] MEDS: LISINOPRIL 5 MG TAB PO SCH (10:00)
--- NOTE | 2024-03-04 14:06 | DVHPN2 ---
Progress Note Date Seen: Mar 04, 2024 Has the PT tested + for MRSA If YES, has PT been informed?: No Medical Necessity Reason Pt with a Central, PICC or Fol: Yes The following are medically ne: Central Line, Roblero Catheter Reason for roblero catheter: Strict I&O Subjective Patient reports: Other (Patient remains intubated currently on amiodarone drip FiO2 of 100 percent) Review of Systems: Deferred Objective vital signs Vital Sign Date Time Temp Pulse Resp B/P (MAP) Pulse Ox O2 Delivery O2 Flow Rate FiO2 03/04/24 12:44 87 26 114/63 (80) 95 100 03/04/24 12:00 Mechanical Ventilator+ 03/04/24 08:03 98.0 98.0 Total Intake and Output 03/03/24 03/03/24 03/04/24 14:59 22:59 06:59 Intake Total 322.500 ml 411.000 ml 417.000 ml Output Total 860 ml 100 ml Balance 322.500 ml -449.000 ml 317.000 ml medications Current Medications Medications Dose Ordered Sig/Theodora Route Start Time Stop Time Status Last Admin Dose Admin Midazolam HCl 50 ml @ 1 mls/hr Q24H IV 02/11/24 09:15 02/20/24 17:30 1 MLS/HR Sodium Chloride 10 ml Q8HR IV 02/11/24 14:00 03/04/24 13:03 10 ML Atorvastatin Calcium 40 mg HS PO 02/12/24 22:00 03/03/24 22:28 40 MG Pantoprazole Sodium 40 mg DAILY IV 02/13/24 10:00 03/04/24 10:50 40 MG Enteral Nutritional Formula 1,000 ml 45ML/HR GT 02/16/24 12:45 03/03/24 03:31 1,000 ML Acetylcysteine 200 mg Q8HR NEB 02/18/24 22:00 03/04/24 06:12 200 MG Albuterol 2.5 mg Q8HR NEB 02/18/24 22:00 03/04/24 06:12 2.5 MG Diagnostic Test (Pha) 1 strip Q6HR 02/20/24 12:00 03/04/24 11:26 1 STRIP Insulin Human Regular Q6HR SC 02/20/24 12:00 03/04/24 11:32 2 UNITS Dextrose 50 ml UD PRN IV 02/20/24 08:45 Hydralazine HCl 10 mg Q6HP PRN IV 02/24/24 12:45 02/24/24 21:33 10 MG Artificial Tears 1 drop Q4HR EACHEYE 02/24/24 16:00 03/04/24 13:02 1 DROP Aspirin 81 mg DAILY PO 02/25/24 10:00 03/03/24 09:41 81 MG Metoprolol Tartrate 25 mg DAILY PO 02/25/24 12:00 Hold 02/25/24 12:11 25 MG Norepinephrine Bitartrate 250 ml @ 0.938 mls/ hr Q24H IV 02/25/24 16:45 Fentanyl Citrate 250 ml @ 2.5 mls/hr Q24H IV 02/25/24 19:00 03/02/24 18:42 15 MLS/HR Enteral Nutritional Formula 27.5 gm BIDWM GT 02/28/24 18:00 03/02/24 17:07 27.5 GM Propofol 100 ml @ 3.45 mls/hr Q24H IV 02/28/24 21:45 03/06/24 21:45 03/04/24 13:01 27.6 MLS/HR Dopamine HCl/ Dextrose 250 ml @ 8.925 mls/ hr Q24H IV 03/01/24 16:30 03/03/24 21:06 8.925 MLS/HR Heparin Sodium (Porcine) 5,000 units Q12HR SC 03/01/24 22:00 Lisinopril 10 mg DAILY PO 03/04/24 10:00 Examination: GENERAL:Abnormal, HEENT:Abnormal, LUNGS:Abnormal, MSK:Abnormal, SKIN:Abnormal, NEURO:Abnormal laboratory and microbiology Laboratory Tests 03/04/24 03:25 Test 03/04/24 03:25 Range/Units Serum Glucose 99 74-106 mg/dL Microbiology Date/Time Source Procedure Growth Status 02/19/24 10:50 Bronchial Washings Gram Stain - Final Complete 02/19/24 10:50 Respiratory Culture - Final Methicillin Resistant S.aureus Complete 02/14/24 12:04 Urine - [place] Urine Culture - Final Complete 02/12/24 13:30 Blood Blood Culture - Final NO GROWTH AFTER 5 DAYS OF INCUBATION. Complete 02/11/24 13:06 Nose MRSA Screen - Final Complete Problem List/Assessment/Plan Problem List/Assessment/Plan Assessment/Plan Acute kidney injury likely ATN due to hypotension + vancotoxicity Acute CVA no previous ckd acute respiratory failure with ARDS septic shock due to PNA bradycardia hypervolemic recs Dialysis today We will consider next dialysis tomorrow versus Friday Plan discussed with: Other Dietary Evaluation Review Comments: 1) Recommend CCHO-60, Cardiac 2gNa LoFat LoCholesterol diet when medically feasible. 2) If GI accessible but PO feeding is not an option, consider glucerna 1.2 @45ml/hr. In 24 hrs, pt will be receiving 65g protein and 1296 kcal.Adj and increase infusion rate as tolerated. 3) If NPO > 7 days and GI is not accesible, consider TPN to support 75% of her energy and protein needs. Expected Outcomes/Goals: Gradual weight loss, improved glucose DEMIAN DE LA TORRE MD Mar 04, 2024 14:06
--- NOTE | 2024-03-04 14:55 | DVHPNRES ---
Progress Note Date Seen: Mar 04, 2024 Resident Creating Document: RIAZ KIDD RESIDENT Has the PT tested + for MRSA If YES, has PT been informed?: No Medical Necessity Reason Pt with a Central, PICC or Fol: Yes The following are medically ne: Central Line, Roblero Catheter Reason for roblero catheter: Strict I&O Subjective Review of Systems Patient is 78-year-old male with unknown medical history of brought to the hospital via EMS for hypertension and found to be outside at convenience store . During further evaluation emergency department, patient was diagnosed with acute stroke due to ischemia and pneumonia. Later patient was intubated on put on ventilator for worsening respiratory distress, protect of airway with diagnosis of acute stroke, pneumonia and CHF exacerbation. Past medical history: Unknown Past surgical history: Unknown Patient seen and examined in ICU. Patient is currently on ventilator. NO other complains. No other night events. Patient had tracheostomy on 03/01/24. Patient's blood pressure is soft today we will hold lisinopril. Objective vital signs Vital Sign Date Time Temp Pulse Resp B/P (MAP) Pulse Ox O2 Delivery O2 Flow Rate FiO2 03/04/24 14:19 81 26 119/59 (79) 96 100 03/04/24 12:00 Mechanical Ventilator+ 03/04/24 08:03 98.0 98.0 Total Intake and Output 03/03/24 03/03/24 03/04/24 15:00 23:00 07:00 Intake Total 329.400 ml 411.000 ml 426.400 ml Output Total 860 ml 100 ml Balance 329.400 ml -449.000 ml 326.400 ml medications Current Medications Medications Dose Ordered Sig/Theodora Route Start Time Stop Time Status Last Admin Dose Admin Midazolam HCl 50 ml @ 1 mls/hr Q24H IV 02/11/24 09:15 02/20/24 17:30 1 MLS/HR Sodium Chloride 10 ml Q8HR IV 02/11/24 14:00 03/04/24 13:03 10 ML Atorvastatin Calcium 40 mg HS PO 02/12/24 22:00 03/03/24 22:28 40 MG Pantoprazole Sodium 40 mg DAILY IV 02/13/24 10:00 03/04/24 10:50 40 MG Enteral Nutritional Formula 1,000 ml 45ML/HR GT 02/16/24 12:45 03/03/24 03:31 1,000 ML Acetylcysteine 200 mg Q8HR NEB 02/18/24 22:00 03/04/24 14:19 200 MG Albuterol 2.5 mg Q8HR NEB 02/18/24 22:00 03/04/24 14:19 2.5 MG Diagnostic Test (Pha) 1 strip Q6HR 02/20/24 12:00 03/04/24 11:26 1 STRIP Insulin Human Regular Q6HR SC 02/20/24 12:00 03/04/24 11:32 2 UNITS Dextrose 50 ml UD PRN IV 02/20/24 08:45 Hydralazine HCl 10 mg Q6HP PRN IV 02/24/24 12:45 02/24/24 21:33 10 MG Artificial Tears 1 drop Q4HR EACHEYE 02/24/24 16:00 03/04/24 13:02 1 DROP Aspirin 81 mg DAILY PO 02/25/24 10:00 03/03/24 09:41 81 MG Metoprolol Tartrate 25 mg DAILY PO 02/25/24 12:00 Hold 02/25/24 12:11 25 MG Norepinephrine Bitartrate 250 ml @ 0.938 mls/ hr Q24H IV 02/25/24 16:45 Fentanyl Citrate 250 ml @ 2.5 mls/hr Q24H IV 02/25/24 19:00 03/02/24 18:42 15 MLS/HR Enteral Nutritional Formula 27.5 gm BIDWM GT 02/28/24 18:00 03/02/24 17:07 27.5 GM Propofol 100 ml @ 3.45 mls/hr Q24H IV 02/28/24 21:45 03/06/24 21:45 03/04/24 13:01 27.6 MLS/HR Dopamine HCl/ Dextrose 250 ml @ 8.925 mls/ hr Q24H IV 03/01/24 16:30 03/03/24 21:06 8.925 MLS/HR Heparin Sodium (Porcine) 5,000 units Q12HR SC 03/01/24 22:00 Lisinopril 10 mg DAILY PO 03/04/24 10:00 Examination GENERAL:Abnormal, LUNGS:Abnormal (Mchanically ventilated. Diminished lung sounds), CVS:Normal (Sinus bradycardia), MSK:Abnormal (Bilateral upper extremitiy edema), NEURO:Abnormal (Chemically sedated (Fentanyl and Propofol) laboratory and microbiology Laboratory Tests 03/04/24 03:25 Test 03/04/24 03:25 Range/Units Serum Glucose 99 74-106 mg/dL Microbiology Date/Time Source Procedure Growth Status 02/19/24 10:50 Bronchial Washings Gram Stain - Final Complete 02/19/24 10:50 Respiratory Culture - Final Methicillin Resistant S.aureus Complete 02/14/24 12:04 Urine - [place] Urine Culture - Final Complete 02/12/24 13:30 Blood Blood Culture - Final NO GROWTH AFTER 5 DAYS OF INCUBATION. Complete 02/11/24 13:06 Nose MRSA Screen - Final Complete Problem List/Assessment/Plan Problem List/Assessment/Plan Acute hypoxic respiratory failure secondary to pneumonia and CHF exacerbation Acute on chronic hypercarbic respiratory failure Acute respiratory distress syndrome Left lower lobe pneumonia Gram-positive/Gram-negative Septic shock due to pneumonia Acute diastolic CHF Emphysema Pulmonary edema Hypertensive emergency Carotid artery stenosis: 50-69% stenosis left paroxysmal ICA DVT and PE ruled out Fatty liver Infrarenal aortic aneurysm:5.8 x 6.0 cm. Prostatomegaly Constipation Obesity Plan -on ventilator: Patient has tracheostomy on 03/01/24, FiO2 100 %, peep 8. -completed antibiotic with cefepime and vancomycin -Off vasopressor Levophed: Target map greater than 65. Of Levophed. -Discontinue IV furosemide 40 mg b.i.d.. Hydrocortisone 100 mg IV b.i.d. -echocardiogram: Left ventricular ejection fraction 60%, grade 1 diastolic dysfunction -neurology consultation: Aspirin, Lipitor. When stable: MRI of brain an, EEG. -cardiology consultation: Continue current management. - nephrology consultation: Patient is on dialysis. -DVT prophylaxis: No anticoagulation for now as patient has bleeding -PUD prophylaxis: Protonix Critical Care time spent 51 minutes including patient care, chart review and updating family, excluding procedure. Plan discussed with Dr Estrella Plan discussed with: Other (RN) My Orders My Orders Orders - RIAZ KIDD RESIDENT Procedure Category Date Status Time Lisinopril Tablet PHA 03/04/24 In Process (Zestril Tablet) 10:00 Chest Xray 1 View XY 03/04/24 Resulted 04:00 Abg W/ Co-Ox RT 03/04/24 Logged 04:00 Dietary Evaluation Review Comments: 1) Recommend CCHO-60, Cardiac 2gNa LoFat LoCholesterol diet when medically feasible. 2) If GI accessible but PO feeding is not an option, consider glucerna 1.2 @45ml/hr. In 24 hrs, pt will be receiving 65g protein and 1296 kcal.Adj and increase infusion rate as tolerated. 3) If NPO > 7 days and GI is not accesible, consider TPN to support 75% of her energy and protein needs. Expected Outcomes/Goals: Gradual weight loss, improved glucose Date of Service: Mar 04, 2024 Billing Provider: ESTELLE ESTRELLA MD Common Visit Codes: [id number] CARE 30-74 MIN RIAZ KIDD RESIDENT Mar 04, 2024 14:55 ESTELLE ESTRELLA MD Mar 05, 2024 13:05
[2024-03-05] VITALS (118 sets, daily range): BP systolic 68–144; BP diastolic 31–72; PULSE 70–103; RESP 16–54; TEMP 97.9–99.2; O2SAT 87–100
[2024-03-05 03:57] LABS: Basophils # (auto) 0 10 ^3/uL (0-0.2); Basophils % (auto) 0.2 % (0.0-2.0); Eosinophils # (auto) 0.6 10 ^3/uL (0-0.8); Eosinophils % (auto) 3.5 % (0.0-7.0); Hematocrit 36.4 % (41.0-53.0); Hemoglobin 12.3 g/dL (13.5-17.5); Lymphocytes # (auto) 1.5 10 ^3/uL (0.4-5.4); Lymphocytes % (auto) 8.5 % (10.0-50.0); Mean Corpuscular Hemoglobin 29.4 pg (28.0-32.0); Mean Corpuscular Hgb Conc. 33.7 g/dL (32.0-36.0); Mean Corpuscular Volume 87.1 fL (80.0-100.0); Monocytes # (auto) 1.4 10 ^3/uL (0-1.3); Monocytes % (auto) 7.9 % (0.0-12.0); Neutrophils # (auto) 14.5 10 ^3/uL (1.6-8.6); Neutrophils % (auto) 79.9 % (37.0-80.0); Platelet Count (auto) 286 10^3/uL (140-450); Red Blood Cells 4.18 10^6/uL (4.5-5.90); Red Cell Distribution Width 14.5 % (11.8-14.3); White Blood Cell 18.1 10^3/uL (4.4-10.8)
[2024-03-05 04:12] LABS: Anion Gap 22 (5-15); BUN/Creatinine Ratio 13.7 (10.0-20.0)
[2024-03-05 04:13] LABS: Albumin 3.7 g/dL (3.2-4.8); Total Protein 7.5 g/dL (5.7-8.2)
[2024-03-05 04:31] LABS: Alanine Aminotransferase 81 U/L (7-40); Alkaline Phosphatase 173 U/L (46-116); Aspartate Aminotransferase 59 U/L (13-40); Bilirubin, Total 0.2 mg/dL (0.2-1.0); Blood Urea Nitrogen 76 mg/dL (9-23); Carbon Dioxide 19 mmol/L (20-31); Chloride 92 mmol/L (98-107); Glucose 111 mg/dL (74-106); Sodium 133 mmol/L (136-145)
[2024-03-05 04:34] LABS: Potassium 5.7 mmol/L (3.5-5.1)
--- NOTE | 2024-03-05 05:58 | DVH ---
CHEST RADIOGRAPH Indication: intubated Technique: Single frontal view of the chest was obtained Comparison: XY CHEST XRAY 1 VIEW on DOS: 03/04/24 FINDINGS: Lines and Tubes: Tracheostomy tube is unchanged. Right central venous catheter terminates in the supe rior vena cava. Left central venous catheter terminates in the superior vena cava. The enteric tube c ourses to below the left hemidiaphragm in the tip extends outside the field of view. Lungs: There is pulmonary congestion. There is right basilar opacity. Left basilar opacity noted. Pleura: No pneumothorax or pleural effusion. No pneumothorax. Cardiomediastinal contours: Unremarkable Bones: No acute osseous abnormality. IMPRESSION: 1. Bibasilar opacities and pulmonary congestion.
[2024-03-05 06:10] LABS: Base Excess -6.3 mmol/L (-2.0-3.0)
[2024-03-05] MEDS: ALBUMIN 25% 50 ML IV ONE ×3 (12:34→14:00)
--- NOTE | 2024-03-05 13:24 | DVHNC2 ---
Other Procedure Procedure Bronchoscopy Operative Note Procedure Performed: 1. Flexible Bronchoscopy 2. Right lower lobe bronchial washings 3. Right lower lobe bronchial washings Anesthesia/Medication: Patient intubated and sedated Preoperative Diagnosis: Pneumonia Postoperative Diagnosis: Same Estimated Blood Loss: Less than 10 ml Indications: Findings: No significant endobronchial lesions or abnormalities were seen. Description of the Procedure: Bronchoscope was introduced through the ET tube the bronchoscope was then inserted into the subglottic area, followed by the trachea, bilateral mainstem bronchi, and to the level of the subsegmental bronchi. There was no evidence of intrinsic or extrinsic compression. I could see a lot of mucus on the right side of the lung and especially in the right lower lobe. I suctioned out all the mucus and did right lower lobe bronchial washings. There was also mucus in the left lower lobe which I suctioned out. I did left lower lobe bronchial washings. At this point, there was no evidence of any ongoing bleeding. The bronchoscope was then withdrawn and the patient was allowed to recover. Date of Service: Mar 05, 2024 Billing Provider: ESTELLE MCKNIGHT MD Common Visit Codes: PROCEDURE ONLY Procedure Codes: [id number] ESTELLE MCKNIGHT MD Mar 05, 2024 13:24
--- NOTE | 2024-03-05 13:28 | DVHPNRES ---
Progress Note Date Seen: Mar 05, 2024 Resident Creating Document: RIAZ KIDD RESIDENT Has the PT tested + for MRSA If YES, has PT been informed?: No Medical Necessity Reason Pt with a Central, PICC or Fol: Yes The following are medically ne: Central Line, Roblero Catheter Reason for roblero catheter: Strict I&O Subjective Review of Systems Patient is 78-year-old male with unknown medical history of brought to the hospital via EMS for hypertension and found to be outside at convenience store . During further evaluation emergency department, patient was diagnosed with acute stroke due to ischemia and pneumonia. Later patient was intubated on put on ventilator for worsening respiratory distress, protect of airway with diagnosis of acute stroke, pneumonia and CHF exacerbation. Past medical history: Unknown Past surgical history: Unknown Patient seen and examined in ICU. Patient is currently on ventilator. Patient and bronch today, both lungs had mucus plug, right lower lobe more than left lung, suctioned and washed the mucus plug. bronchial washing from both lung were taken and sent for cell count cytology, Gram staining, AFB. Waiting for PEG tube placement to transfer patient to LTAC. Objective vital signs Vital Sign Date Time Temp Pulse Resp B/P (MAP) Pulse Ox O2 Delivery O2 Flow Rate FiO2 03/05/24 12:00 80 29 127/67 (87) 98 90 03/05/24 08:00 Mechanical Ventilator+ 03/04/24 20:09 98.7 98.7 Total Intake and Output 03/04/24 03/04/24 03/05/24 15:00 23:00 07:00 Intake Total 324.150 ml 479.100 ml 488.525 ml Output Total 250 ml 100 ml Balance 324.150 ml 229.100 ml 388.525 ml medications Current Medications Medications Dose Ordered Sig/Theodora Route Start Time Stop Time Status Last Admin Dose Admin Midazolam HCl 50 ml @ 1 mls/hr Q24H IV 02/11/24 09:15 02/20/24 17:30 1 MLS/HR Sodium Chloride 10 ml Q8HR IV 02/11/24 14:00 03/05/24 06:00 10 ML Atorvastatin Calcium 40 mg HS PO 02/12/24 22:00 03/04/24 21:40 40 MG Pantoprazole Sodium 40 mg DAILY IV 02/13/24 10:00 03/05/24 09:17 40 MG Enteral Nutritional Formula 1,000 ml 45ML/HR GT 02/16/24 12:45 03/03/24 03:31 1,000 ML Acetylcysteine 200 mg Q8HR NEB 02/18/24 22:00 03/05/24 06:18 200 MG Albuterol 2.5 mg Q8HR NEB 02/18/24 22:00 03/05/24 06:18 2.5 MG Diagnostic Test (Pha) 1 strip Q6HR 02/20/24 12:00 03/05/24 06:00 1 STRIP Insulin Human Regular Q6HR SC 02/20/24 12:00 03/04/24 11:32 2 UNITS Dextrose 50 ml UD PRN IV 02/20/24 08:45 Hydralazine HCl 10 mg Q6HP PRN IV 02/24/24 12:45 02/24/24 21:33 10 MG Artificial Tears 1 drop Q4HR EACHEYE 02/24/24 16:00 03/05/24 09:17 1 DROP Aspirin 81 mg DAILY PO 02/25/24 10:00 03/03/24 09:41 81 MG Metoprolol Tartrate 25 mg DAILY PO 02/25/24 12:00 Hold 02/25/24 12:11 25 MG Norepinephrine Bitartrate 250 ml @ 0.938 mls/ hr Q24H IV 02/25/24 16:45 Fentanyl Citrate 250 ml @ 2.5 mls/hr Q24H IV 02/25/24 19:00 03/05/24 04:54 17.5 MLS/HR Enteral Nutritional Formula 27.5 gm BIDWM GT 02/28/24 18:00 03/02/24 17:07 27.5 GM Propofol 100 ml @ 3.45 mls/hr Q24H IV 02/28/24 21:45 03/06/24 21:45 03/05/24 11:04 27.6 MLS/HR Dopamine HCl/ Dextrose 250 ml @ 8.925 mls/ hr Q24H IV 03/01/24 16:30 03/05/24 03:14 8.925 MLS/HR Heparin Sodium (Porcine) 5,000 units Q12HR SC 03/01/24 22:00 03/04/24 21:41 5,000 UNITS Lisinopril 10 mg DAILY PO 03/04/24 10:00 Metoclopramide HCl 10 mg Q8HR IV 03/05/24 14:00 Examination General: RASS -3, afebrile, mucosae are moist Cardiovascular: Normal S1 and S2. No murmurs, gallops or rubs Respiratory: Mechanically assisted ventilation, equal bilateral airway entree. Abdomen: Soft, nontender, no organomegaly, normal bowel sounds MSK/skin: Mobilization of limbs cannot be evaluated. Neurological: Orientation cannot be assessed. No apparent motor no sensitive deficits. Pupils are isocoric and reactive. laboratory and microbiology Laboratory Tests 03/05/24 03:21 Test 03/05/24 03:21 Range/Units Serum Glucose 111 H 74-106 mg/dL Microbiology Date/Time Source Procedure Growth Status 02/19/24 10:50 Bronchial Washings Gram Stain - Final Complete 02/19/24 10:50 Respiratory Culture - Final Methicillin Resistant S.aureus Complete 02/14/24 12:04 Urine - Roblero [place] Urine Culture - Final Complete 02/12/24 13:30 Blood Blood Culture - Final NO GROWTH AFTER 5 DAYS OF INCUBATION. Complete 02/11/24 13:06 Nose MRSA Screen - Final Complete Problem List/Assessment/Plan Problem List/Assessment/Plan Acute hypoxic respiratory failure secondary to pneumonia and CHF exacerbation Acute on chronic hypercarbic respiratory failure Acute respiratory distress syndrome Left lower lobe pneumonia Gram-positive/Gram-negative Septic shock due to pneumonia Acute diastolic CHF Emphysema Pulmonary edema Hypertensive emergency Carotid artery stenosis: 50-69% stenosis left paroxysmal ICA DVT and PE ruled out Fatty liver Infrarenal aortic aneurysm:5.8 x 6.0 cm. Prostatomegaly Constipation Obesity Plan -on ventilator: Patient has tracheostomy on 03/01/24, FiO2 100 %, peep 8. -completed antibiotic with cefepime and vancomycin -Off vasopressor Levophed: Target map greater than 65. Of Levophed. -Discontinue IV furosemide 40 mg b.i.d.. Hydrocortisone 100 mg IV b.i.d. -echocardiogram: Left ventricular ejection fraction 60%, grade 1 diastolic dysfunction -neurology consultation: Aspirin, Lipitor. When stable: MRI of brain an, EEG. -cardiology consultation: Continue current management. - nephrology consultation: Patient is on dialysis. -DVT prophylaxis: No anticoagulation for now as patient has bleeding -PUD prophylaxis: Protonix Patient had bronch today, both lungs had mucus plug, right lower lobe more than left lung, suctioned and washed the mucus plug. bronchial washing from both lung were taken and sent for cell count cytology, Gram staining, AFB. Waiting for PEG tube placement to transfer patient to LTAC. Critical Care time spent 68 minutes including patient care, chart review and updating family, excluding procedure. Plan discussed with Dr Estrella Plan discussed with: Other (RN) My Orders My Orders Orders - RIAZ KIDD RESIDENT Procedure Category Date Status Time Chest Xray 1 View XY 03/05/24 Resulted 04:00 Abg W/ Co-Ox RT 03/05/24 Logged 04:00 Bronchosc Dx W/W/O BD 03/05/24 Transmitted Fluor&Wash 10:30 Cytology AMBER 03/05/24 Transmitted 11:28 Body Fluids, Diff. LAB 03/05/24 Logged Cell Count 11:28 Respiratory Culture AMBER 03/05/24 In Process W/ Gs 11:54 Respiratory Culture AMBER 03/05/24 In Process W/ Gs 11:54 Dietary Evaluation Review Comments: 1) Recommend CCHO-60, Cardiac 2gNa LoFat LoCholesterol diet when medically feasible. 2) If GI accessible but PO feeding is not an option, consider glucerna 1.2 @45ml/hr. In 24 hrs, pt will be receiving 65g protein and 1296 kcal.Adj and increase infusion rate as tolerated. 3) If NPO > 7 days and GI is not accesible, consider TPN to support 75% of her energy and protein needs. Expected Outcomes/Goals: Gradual weight loss, improved glucose Date of Service: Mar 05, 2024 Billing Provider: ESTELLE ESTRELLA MD Common Visit Codes: [id number] CARE 30-74 MIN RIAZ KIDD RESIDENT Mar 05, 2024 13:28 ESTELLE ESTRELLA MD Mar 12, 2024 13:06
[2024-03-05] MEDS: METOCLOPRAMIDE HCL 5MG/ml INJ 2ml VIAL IV SCH (13:29)
[2024-03-05] MEDS: CATHFLO ACTIVASE (ALTEPLASE) 2 MG VIAL IV ONE (13:45)
[2024-03-05] MEDS: HEPARIN SODIUM (PORCINE) 5000 UNITS/ML 1ML VIAL IV ONE (13:45)
[2024-03-05] MEDS: HEPARIN 1,000 UNITS/ml 1ML VIAL IV ONE (13:45)
--- NOTE | 2024-03-05 21:24 | DVHPN2 ---
Progress Note Date Seen: Mar 05, 2024 Has the PT tested + for MRSA If YES, has PT been informed?: No Medical Necessity Reason Pt with a Central, PICC or Fol: Yes The following are medically ne: Central Line, Roblero Catheter Reason for roblero catheter: Strict I&O Subjective Patient reports: Other (intubated) Review of Systems: Deferred Objective vital signs Vital Sign Date Time Temp Pulse Resp B/P (MAP) Pulse Ox O2 Delivery O2 Flow Rate FiO2 03/05/24 20:54 72 26 111/62 (78) 99 03/05/24 20:09 70 03/05/24 20:09 97.9 97.9 03/05/24 20:00 Mechanical Ventilator+ Total Intake and Output 03/04/24 03/04/24 03/05/24 15:00 23:00 07:00 Intake Total 324.150 ml 479.100 ml 488.525 ml Output Total 250 ml 100 ml Balance 324.150 ml 229.100 ml 388.525 ml medications Current Medications Medications Dose Ordered Sig/Theodora Route Start Time Stop Time Status Last Admin Dose Admin Midazolam HCl 50 ml @ 1 mls/hr Q24H IV 02/11/24 09:15 02/20/24 17:30 1 MLS/HR Sodium Chloride 10 ml Q8HR IV 02/11/24 14:00 03/05/24 13:29 10 ML Atorvastatin Calcium 40 mg HS PO 02/12/24 22:00 03/04/24 21:40 40 MG Pantoprazole Sodium 40 mg DAILY IV 02/13/24 10:00 03/05/24 09:17 40 MG Enteral Nutritional Formula 1,000 ml 45ML/HR GT 02/16/24 12:45 03/03/24 03:31 1,000 ML Acetylcysteine 200 mg Q8HR NEB 02/18/24 22:00 03/05/24 14:39 200 MG Albuterol 2.5 mg Q8HR NEB 02/18/24 22:00 03/05/24 14:39 2.5 MG Diagnostic Test (Pha) 1 strip Q6HR 02/20/24 12:00 03/05/24 18:09 1 STRIP Insulin Human Regular Q6HR SC 02/20/24 12:00 03/05/24 12:38 2 UNITS Dextrose 50 ml UD PRN IV 02/20/24 08:45 Hydralazine HCl 10 mg Q6HP PRN IV 02/24/24 12:45 02/24/24 21:33 10 MG Artificial Tears 1 drop Q4HR EACHEYE 02/24/24 16:00 03/05/24 18:09 1 DROP Aspirin 81 mg DAILY PO 02/25/24 10:00 03/03/24 09:41 81 MG Metoprolol Tartrate 25 mg DAILY PO 02/25/24 12:00 Hold 02/25/24 12:11 25 MG Norepinephrine Bitartrate 250 ml @ 0.938 mls/ hr Q24H IV 02/25/24 16:45 Fentanyl Citrate 250 ml @ 2.5 mls/hr Q24H IV 02/25/24 19:00 03/05/24 16:32 17.5 MLS/HR Enteral Nutritional Formula 27.5 gm BIDWM GT 02/28/24 18:00 03/02/24 17:07 27.5 GM Propofol 100 ml @ 3.45 mls/hr Q24H IV 02/28/24 21:45 03/06/24 21:45 03/05/24 20:43 27.6 MLS/HR Heparin Sodium (Porcine) 5,000 units Q12HR SC 03/01/24 22:00 03/04/24 21:41 5,000 UNITS Lisinopril 10 mg DAILY PO 03/04/24 10:00 Metoclopramide HCl 10 mg Q8HR IV 03/05/24 14:00 03/05/24 13:29 10 MG Examination: GENERAL:Abnormal, LUNGS:Abnormal, SKIN:Abnormal, NEURO:Abnormal laboratory and microbiology Laboratory Tests 03/05/24 03:21 Test 03/05/24 03:21 Range/Units Serum Glucose 111 H 74-106 mg/dL Microbiology Date/Time Source Procedure Growth Status 02/19/24 10:50 Bronchial Washings Gram Stain - Final Complete 02/19/24 10:50 Respiratory Culture - Final Methicillin Resistant S.aureus Complete 02/14/24 12:04 Urine - Roblero Port Urine Culture - Final Complete 02/12/24 13:30 Blood Blood Culture - Final NO GROWTH AFTER 5 DAYS OF INCUBATION. Complete 02/11/24 13:06 Nose MRSA Screen - Final Complete Problem List/Assessment/Plan Problem List/Assessment/Plan Assessment/Plan Acute kidney injury likely ATN due to hypotension + vancotoxicity needing HD Acute CVA no previous ckd acute respiratory failure with ARDS septic shock due to PNA bradycardia hypervolemic recs seen on Dialysis today next dialysis friday Plan discussed with: Other Dietary Evaluation Review Comments: 1) Recommend CCHO-60, Cardiac 2gNa LoFat LoCholesterol diet when medically feasible. 2) If GI accessible but PO feeding is not an option, consider glucerna 1.2 @45ml/hr. In 24 hrs, pt will be receiving 65g protein and 1296 kcal.Adj and increase infusion rate as tolerated. 3) If NPO > 7 days and GI is not accesible, consider TPN to support 75% of her energy and protein needs. Expected Outcomes/Goals: Gradual weight loss, improved glucose DEMIAN DE LA TORRE MD Mar 05, 2024 21:24
[2024-03-06] VITALS (113 sets, daily range): BP systolic 76–144; BP diastolic 36–69; PULSE 64–81; RESP 25–27; TEMP 97.6–98.5; O2SAT 90–100
[2024-03-06 03:48] LABS: Hematocrit 34.5 % (41.0-53.0); Hemoglobin 11.6 g/dL (13.5-17.5); Mean Corpuscular Hemoglobin 29.5 pg (28.0-32.0); Mean Corpuscular Hgb Conc. 33.7 g/dL (32.0-36.0); Mean Corpuscular Volume 87.7 fL (80.0-100.0); Platelet Count (auto) 240 10^3/uL (140-450); Red Blood Cells 3.94 10^6/uL (4.5-5.90); Red Cell Distribution Width 14.7 % (11.8-14.3)
[2024-03-06 03:59] LABS: Anion Gap 21 (5-15); Carbon Dioxide 21 mmol/L (20-31)
[2024-03-06 04:00] LABS: Calcium 9.3 mg/dL (8.7-10.4)
[2024-03-06 04:01] LABS: INR 1.1 (0.9-1.15); Partial Thromboplastin Time 28.1 SEC (24.5-34.5); Prothrombin Time 11.6 sec (9.3-11.8)
[2024-03-06 04:02] LABS: Basophils % (manual) 0 (0.0-2.0); Blast Cells 0; Metamyelocytes % 0; Myelocytes % 0; Promyelocytes % 0; Reactive Lymphocytes 0
[2024-03-06 04:05] LABS: BUN/Creatinine Ratio 13.6 (10.0-20.0); Glucose 94 mg/dL (74-106)
[2024-03-06 04:07] LABS: Blood Urea Nitrogen 66 mg/dL (9-23); Chloride 92 mmol/L (98-107); Sodium 134 mmol/L (136-145)
[2024-03-06 05:31] LABS: Band Neutrophils % (manual) 2; Eosinophils % (manual) 3 (0-7); Lymphocytes % (manual) 13 (10.0-50.0); Monocytes % (manual) 4 (0-12); Platelet Estimate Adequate
--- NOTE | 2024-03-06 05:55 | DVH ---
CHEST RADIOGRAPH Indication: intubated Technique: Single frontal view of the chest was obtained Comparison: XY CHEST XRAY 1 VIEW on DOS: 03/05/24, XY CHEST XRAY 1 VIEW on DOS: 03/04/24, XY CHEST XR AY 1 VIEW on DOS: 03/03/24 IMPRESSION: Heart appears prominent in size. Subsegmental atelectasis and possible fusion of the right lung base. Interstitial prominence. Support lines and tubes appear unchanged in satisfactory in position. Non visualization of the distal enteric tube. No pneumothorax.
[2024-03-06] MEDS: fentaNYL Drip 2500mCg/250mlNS 250 ML IV SCH (06:16)
[2024-03-06 08:15] LABS: Base Excess -4.6 mmol/L (-2.0-3.0)
--- NOTE | 2024-03-06 10:34 | DVHPN2 ---
Subjective Sedated and on mechanical ventilation via tracheostomy Reviewed: Care Plan, H&P, Labs, Medications, Previous Orders, Radiology, Other (Consultations) Changes from previous H/P or p: No Changes Objective Vitals Vital Signs Date Time Temp Pulse Resp B/P (MAP) Pulse Ox O2 Delivery O2 Flow Rate FiO2 03/06/24 10:17 76 25 113/54 (73) 97 03/06/24 10:17 60 03/06/24 10:02 97.8 97.8 03/06/24 10:00 Mechanical Ventilator+ Intake/Output Intake and Output 03/06/24 07:00 Intake Total 1401.575 ml Output Total 85 ml Balance 1316.575 ml Intake Oral 210 ml IV Total 1081.575 ml Tube Feeding 110 ml Output Urine Total 35 ml Stool Total 50 ml General Appearance: Other (Sedated and on mechanical ventilation via tracheostomy) HEENT: Other (Tracheostomy) Lungs: Other (Mechanical ventilation breathing sounds) Cardiovascular: Regular rate, Normal S1, Normal S2 Abdomen: Other (Hypoactive bowel sounds) Genitourinary: Other (Sanders[place]) Neuro: Other (Sedated) Psych/Mental Status: Other (Sedated) Medications Current Medications Medications Dose Ordered Sig/Theodora Route Start Time Stop Time Status Last Admin Dose Admin Midazolam HCl 50 ml @ 1 mls/hr Q24H IV 02/11/24 09:15 02/20/24 17:30 1 MLS/HR Sodium Chloride 10 ml Q8HR IV 02/11/24 14:00 03/06/24 05:56 10 ML Atorvastatin Calcium 40 mg HS PO 02/12/24 22:00 03/05/24 21:28 40 MG Pantoprazole Sodium 40 mg DAILY IV 02/13/24 10:00 03/06/24 10:07 40 MG Enteral Nutritional Formula 1,000 ml 45ML/HR GT 02/16/24 12:45 03/03/24 03:31 1,000 ML Acetylcysteine 200 mg Q8HR NEB 02/18/24 22:00 03/06/24 07:05 200 MG Albuterol 2.5 mg Q8HR NEB 02/18/24 22:00 03/06/24 07:05 2.5 MG Diagnostic Test (Pha) 1 strip Q6HR 02/20/24 12:00 03/06/24 05:56 1 STRIP Insulin Human Regular Q6HR SC 02/20/24 12:00 03/05/24 12:38 2 UNITS Dextrose 50 ml UD PRN IV 02/20/24 08:45 Hydralazine HCl 10 mg Q6HP PRN IV 02/24/24 12:45 02/24/24 21:33 10 MG Artificial Tears 1 drop Q4HR EACHEYE 02/24/24 16:00 03/06/24 10:06 1 DROP Aspirin 81 mg DAILY PO 02/25/24 10:00 03/06/24 10:07 81 MG Metoprolol Tartrate 25 mg DAILY PO 02/25/24 12:00 Hold 02/25/24 12:11 25 MG Norepinephrine Bitartrate 250 ml @ 0.938 mls/ hr Q24H IV 02/25/24 16:45 Enteral Nutritional Formula 27.5 gm BIDWM GT 02/28/24 18:00 03/02/24 17:07 27.5 GM Propofol 100 ml @ 3.45 mls/hr Q24H IV 02/28/24 21:45 03/06/24 21:45 03/06/24 10:04 27.6 MLS/HR Heparin Sodium (Porcine) 5,000 units Q12HR SC 03/01/24 22:00 03/06/24 10:06 5,000 UNITS Lisinopril 10 mg DAILY PO 03/04/24 10:00 03/06/24 10:07 10 MG Metoclopramide HCl 10 mg Q8HR IV 03/05/24 14:00 03/06/24 06:02 10 MG Fentanyl Citrate 250 ml @ 2.5 mls/hr Q24H IV 03/05/24 22:45 03/06/24 06:16 17.5 MLS/HR Laboratory Results Laboratory Tests 03/06/24 03:10 Chemistry Test 03/06/24 03:10 Calcium Level 9.3 mg/dL (8.7-10.4) Coagulation Test 03/06/24 03:10 Prothrombin Time 11.6 sec (9.3-11.8) Prothrombin Time INR 1.10 (0.9-1.15) Activated Partial Thromboplast Time 28.1 SEC (24.5-34.5) Urinalysis Test 02/20/24 14:57 Urine Color Brown (Yellow) H Urine Clarity Ex.turbid (Clear) Urine pH 5.5 (5.0-9.0) Urine Specific [place] 1.014 (1.001-1.035) Urine Protein 2+ (Negative) H Urine Ketones Negative (Negative) Urine Blood 3+ /uL (Negative) H Urine Nitrite Negative (Negative) Urine Bilirubin Negative (Negative) Urine Urobilinogen Normal mg/dL (Negative) Urine Leukocyte Esterase 1+ /uL (Negative) Urine RBC 124 /hpf (0 - 3) Urine WBC 107 /hpf (0 - 3) Urine Squamous Epithelial Cells Few /hpf (<5) Urine Bacteria Few /hpf (None Seen) H Urine Mucus Few (None Seen) Urine Creatinine 85.51 mg/dL (30.0-125.0) Urine Sodium 15 mmol/L (40-220) L Urine Glucose Normal mg/dL (Normal) Blood Gas Results Test 03/06/24 07:28 Arterial Blood pH 7.370 (7.350-7.450) FiO2 % 50.0 Microbiology Microbiology Date/Time Source Procedure Growth Status 03/05/24 10:40 Bronchial Washings Gram Stain - Final Resulted 03/05/24 10:40 Bronchial Washings Respiratory Culture - Preliminary Resulted 02/14/24 12:04 Urine - [place] Urine Culture - Final Complete 02/12/24 13:30 Blood Blood Culture - Final NO GROWTH AFTER 5 DAYS OF INCUBATION. Complete 02/11/24 13:06 Nose MRSA Screen - Final Complete Labs and/or images reviewed: Labs reviewed by me, Image(s) reviewed by me Assessment/Plan Assessment/Plan Covering Dr. Estrella / Dr. Larsen: #Acute metabolic/toxic encephalopathy secondary to septic shock and acute CVA #Acute hypoxic respiratory failure secondary to pneumonia and CHF exacerbation #Acute on chronic hypercarbic respiratory failure #Acute respiratory distress syndrome #Left lower lobe pneumonia Gram-positive/Gram-negative #Septic shock due to MRSA and fungal pneumonia #Leukocytosis due to septic shock #Acute CVA #KARISSA; likely ATN; vasomotor nephropathy; suspected vancomycin toxicity #Acute diastolic CHF #Emphysema #Pulmonary edema #Carotid artery stenosis #DVT and PE ruled out #Fatty liver #Infrarenal aortic aneurysm #Prostatomegaly #Constipation #Morbid obesity Reviewed the available imaging studies including chest x-ray and echocardiogram Reviewed the available lab studies including ABGs and cultures Continue IV pressors as indicated Continue IV antibiotics as indicated Continue oxygen therapy via mechanical ventilation via tracheostomy as per pulmonology Continue aspirin and statin Avoid nephrotoxic agents and hemodialysis as per nephrology Continue close monitoring 120 minutes of critical care time This medical document was created using an electronic medical record system with computerized dictation system. Although this document has been carefully reviewed, there might still be some phonetic and typographical errors. These areas are purely typographical due to imperfections of the software programs, and do not reflect any compromise in the patient's medical care. Plan discussed with: Other (Nurse) Date of Service: Mar 06, 2024 Billing Provider: CRISTIANO BELL MD Common Visit Codes: [id number] CARE 30-74 MIN (120 minutes), [id number] CARE-EACH +30MIN CRISTIANO BELL MD Mar 06, 2024 10:34
--- NOTE | 2024-03-06 19:41 | DVHPN2 ---
Progress Note Date Seen: Mar 06, 2024 Has the PT tested + for MRSA If YES, has PT been informed?: No Medical Necessity Reason Pt with a Central, PICC or Fol: Yes The following are medically ne: Central Line, Roblero Catheter Reason for roblero catheter: Strict I&O Subjective Patient reports: Other (No new events) Review of Systems: Deferred Objective vital signs Vital Sign Date Time Temp Pulse Resp B/P (MAP) Pulse Ox O2 Delivery O2 Flow Rate FiO2 03/06/24 18:30 103/48 03/06/24 18:17 66 26 96 03/06/24 18:14 45 03/06/24 16:02 98.0 98.0 03/06/24 10:00 Mechanical Ventilator+ Total Intake and Output 03/05/24 03/05/24 03/06/24 15:00 23:00 07:00 Intake Total 387.575 ml 443.2 ml 570.8 ml Output Total 80 ml 5 ml Balance 387.575 ml 363.2 ml 565.8 ml medications Current Medications Medications Dose Ordered Sig/Theodora Route Start Time Stop Time Status Last Admin Dose Admin Midazolam HCl 50 ml @ 1 mls/hr Q24H IV 02/11/24 09:15 02/20/24 17:30 1 MLS/HR Sodium Chloride 10 ml Q8HR IV 02/11/24 14:00 03/06/24 14:02 10 ML Atorvastatin Calcium 40 mg HS PO 02/12/24 22:00 03/05/24 21:28 40 MG Pantoprazole Sodium 40 mg DAILY IV 02/13/24 10:00 03/06/24 10:07 40 MG Enteral Nutritional Formula 1,000 ml 45ML/HR GT 02/16/24 12:45 03/03/24 03:31 1,000 ML Acetylcysteine 200 mg Q8HR NEB 02/18/24 22:00 03/06/24 14:36 200 MG Albuterol 2.5 mg Q8HR NEB 02/18/24 22:00 03/06/24 14:36 2.5 MG Diagnostic Test (Pha) 1 strip Q6HR 02/20/24 12:00 03/06/24 17:52 1 STRIP Insulin Human Regular Q6HR SC 02/20/24 12:00 03/05/24 12:38 2 UNITS Dextrose 50 ml UD PRN IV 02/20/24 08:45 Hydralazine HCl 10 mg Q6HP PRN IV 02/24/24 12:45 02/24/24 21:33 10 MG Artificial Tears 1 drop Q4HR EACHEYE 02/24/24 16:00 03/06/24 17:52 1 DROP Aspirin 81 mg DAILY PO 02/25/24 10:00 03/06/24 10:07 81 MG Metoprolol Tartrate 25 mg DAILY PO 02/25/24 12:00 Hold 02/25/24 12:11 25 MG Norepinephrine Bitartrate 250 ml @ 0.938 mls/ hr Q24H IV 02/25/24 16:45 03/06/24 14:29 0.938 MLS/HR Enteral Nutritional Formula 27.5 gm BIDWM GT 02/28/24 18:00 03/02/24 17:07 27.5 GM Propofol 100 ml @ 3.45 mls/hr Q24H IV 02/28/24 21:45 03/06/24 21:45 03/06/24 16:52 27.6 MLS/HR Heparin Sodium (Porcine) 5,000 units Q12HR SC 03/01/24 22:00 03/06/24 10:06 5,000 UNITS Metoclopramide HCl 10 mg Q8HR IV 03/05/24 14:00 03/06/24 14:01 10 MG Fentanyl Citrate 250 ml @ 2.5 mls/hr Q24H IV 03/05/24 22:45 03/06/24 18:30 17.5 MLS/HR laboratory and microbiology Laboratory Tests 03/06/24 03:10 Test 03/06/24 03:10 Range/Units Serum Glucose 94 74-106 mg/dL Microbiology Date/Time Source Procedure Growth Status 03/05/24 10:40 Bronchial Washings Gram Stain - Final Resulted 03/05/24 10:40 Bronchial Washings Respiratory Culture - Preliminary Resulted 02/14/24 12:04 Urine - [place] Urine Culture - Final Complete 02/12/24 13:30 Blood Blood Culture - Final NO GROWTH AFTER 5 DAYS OF INCUBATION. Complete 02/11/24 13:06 Nose MRSA Screen - Final Complete Problem List/Assessment/Plan Problem List/Assessment/Plan Assessment/Plan Acute kidney injury likely ATN due to hypotension + vancotoxicity needing HD Acute CVA no previous ckd acute respiratory failure with ARDS septic shock due to PNA bradycardia hypervolemic recs next dialysis friday Plan discussed with: Other Dietary Evaluation Review Comments: 1) Recommend CCHO-60, Cardiac 2gNa LoFat LoCholesterol diet when medically feasible. 2) If GI accessible but PO feeding is not an option, consider glucerna 1.2 @45ml/hr. In 24 hrs, pt will be receiving 65g protein and 1296 kcal.Adj and increase infusion rate as tolerated. 3) If NPO > 7 days and GI is not accesible, consider TPN to support 75% of her energy and protein needs. Expected Outcomes/Goals: Gradual weight loss, improved glucose DEMIAN DE LA TORRE MD Mar 06, 2024 19:40
--- NOTE | 2024-03-06 23:25 | DVHPN2 ---
Progress Note - Dictate Date Seen: Mar 06, 2024 Has the PT tested + for MRSA If YES, has PT been informed?: No Medical Necessity Reason Pt with a Central, PICC or Fol: Yes The following are medically ne: Central Line, Roblero Catheter Reason for roblero catheter: Strict I&O Subjective Patient seen and examined at bedside. Sedated, intubated on mechanical ventilator. Overnight events reviewed. vital signs Vital Sign Date Time Temp Pulse Resp B/P (MAP) Pulse Ox O2 Delivery O2 Flow Rate FiO2 03/06/24 22:17 68 25 105/49 (67) 95 03/06/24 22:02 45 03/06/24 22:00 Mechanical Ventilator+ 03/06/24 20:02 98.5 98.5 Total Intake and Output 03/05/24 03/05/24 03/06/24 15:00 23:00 07:00 Intake Total 387.575 ml 443.2 ml 570.8 ml Output Total 80 ml 5 ml Balance 387.575 ml 363.2 ml 565.8 ml medications Current Medications Medications Dose Ordered Sig/Theodora Route Start Time Stop Time Status Last Admin Dose Admin Midazolam HCl 50 ml @ 1 mls/hr Q24H IV 02/11/24 09:15 02/20/24 17:30 1 MLS/HR Sodium Chloride 10 ml Q8HR IV 02/11/24 14:00 03/06/24 21:33 10 ML Atorvastatin Calcium 40 mg HS PO 02/12/24 22:00 03/06/24 21:33 40 MG Pantoprazole Sodium 40 mg DAILY IV 02/13/24 10:00 03/06/24 10:07 40 MG Enteral Nutritional Formula 1,000 ml 45ML/HR GT 02/16/24 12:45 03/03/24 03:31 1,000 ML Acetylcysteine 200 mg Q8HR NEB 02/18/24 22:00 03/06/24 22:01 200 MG Albuterol 2.5 mg Q8HR NEB 02/18/24 22:00 03/06/24 22:01 2.5 MG Diagnostic Test (Pha) 1 strip Q6HR 02/20/24 12:00 03/06/24 17:52 1 STRIP Insulin Human Regular Q6HR SC 02/20/24 12:00 03/05/24 12:38 2 UNITS Dextrose 50 ml UD PRN IV 02/20/24 08:45 Hydralazine HCl 10 mg Q6HP PRN IV 02/24/24 12:45 02/24/24 21:33 10 MG Artificial Tears 1 drop Q4HR EACHEYE 02/24/24 16:00 03/06/24 21:33 1 DROP Aspirin 81 mg DAILY PO 02/25/24 10:00 03/06/24 10:07 81 MG Metoprolol Tartrate 25 mg DAILY PO 02/25/24 12:00 Hold 02/25/24 12:11 25 MG Norepinephrine Bitartrate 250 ml @ 0.938 mls/ hr Q24H IV 02/25/24 16:45 03/06/24 14:29 0.938 MLS/HR Enteral Nutritional Formula 27.5 gm BIDWM GT 02/28/24 18:00 03/02/24 17:07 27.5 GM Heparin Sodium (Porcine) 5,000 units Q12HR SC 03/01/24 22:00 03/06/24 21:34 5,000 UNITS Metoclopramide HCl 10 mg Q8HR IV 03/05/24 14:00 03/06/24 21:33 10 MG Fentanyl Citrate 250 ml @ 2.5 mls/hr Q24H IV 03/05/24 22:45 03/06/24 18:30 17.5 MLS/HR Propofol 100 ml @ 3.39 mls/hr Q24H IV 03/06/24 22:15 objective Gen.: Patient lying in bed in medical ICU. Sedated, intubated on mechanical ventilator. Head: Normocephalic, atraumatic. Eyes: PERRLA. Ears: Normal external anatomy. Throat: Endotracheal tube and orogastric tube in place. Neck: Supple, trachea midline. Chest: Transmitted breath sounds bilaterally. Decreased air entry bilaterally. No wheezing. Bibasilar crackles. Cardiovascular: Positive S1, positive S2. Regular rate and rhythm. Abdomen: Positive bowel sounds in all 4 quadrants. Soft, nontender, nondistended. : Roblero in place. Normal external genitalia. Rectal: Deferred. Skin: Warm, dry. Intact. Extremities: 2+ radial pulses bilaterally. No lower extremity edema. Neuro: Sedated. laboratory and microbiology Laboratory Tests 03/06/24 03:10 Test 03/06/24 03:10 Range/Units Serum Glucose 94 74-106 mg/dL Assessment/Plan Impression: Acute hypoxic respiratory failure secondary to pneumonia and CHF exacerbation Acute on chronic hypercarbic respiratory failure Acute respiratory distress syndrome On mechanical ventilator Pneumonia, likely Gram-negative CHF exacerbation Pulmonary edema Obesity with a BMI of 32.6 Acute stroke Events: Remains on vent support On assist control with a respiratory rate of 26, tidal volume 550, PEEP of 10, FiO2 at 50%. Required increased PEEP to 10. ABG reviewed, compensated. CXR demonstrates subsegmental atelectasis. Devices in place. S/p bronchoscopy on 03/05/24. See separate procedure note for full details. Follow up bronchial washings and culture. Sedated on Fentanyl, Propofol drip. On pressors for hemodynamic support Levophed 5 mcg/min Titrate to keep mean arterial pressure greater than 65 mmHg. HD planned for Friday Awaiting trach Monitor renal function Monitor electrolytes. Supplement as necessary. HD per Nephrology Tube feeds for nutritional support Labs and imaging reviewed. Rest of plan as noted below. Plan: s/p intubation on mechanical ventilator CT head notable for hypodense pretty 10 x 8 mm in size in the simon with the left side from strenuous for acute infarct. Chronic periventricular ischemic changes. Cerebral and cerebellar atrophy likely age-related. Recommend neurology evaluation. CXR image and report reviewed. Devices in place. Cardiomegaly. Small left pleural effusion. Diffuse interstitial opacities likely pulmonary edema. Initial ABG was notable for acute on chronic hypercarbic respiratory failure, PaCO2 63.4 mmHg Repeat ABG reviewed. Compensated. Poor PF ratio. S/p bronchoscopy w/ bronchoalveolar lavage and central line placement on 02/22. Please see separate procedure note for details. S/p bronchoscopy with right middle lobe bronchoalveolar lavage on 02/15/24. See procedure note for details. On assist control with a respiratory rate of 26, tidal volume 550, PEEP of 10, FiO2 at 50%. Titrate FIO2 to keep O2 saturation above 92%. VAP bundle Daily ABG and CXR while intubated. Sedate for ventilator synchrony On pressors for hemodynamic support Titrate to keep mean arterial pressure greater than 65 mmHg. Continue antibiotics. F/u cultures. Diurese to euvolemia. Monitor ins/outs. On Lasix BID. Monitor renal function due to acute kidney injury. Monitor electrolytes. Supplement as necessary. Nutritional support. Accucheks, ISS. GI/DVT prophylaxis. Condition: Critical Prognosis: Poor given multiple comorbidities. Rest of plan per hospitalist and other consultants. A total of 35 minutes of critical care time was spent reviewing the patient record, examining the patient, making a diagnostic and therapeutic plan, discussing this plan with the medical personnel, following up on diagnostic studies and following the patient for clinical stability excluding any and all procedures. At least 50% of this time was spent in direct, [id number] contact. Thank you [employer] Nathanael for allowing me to participate in this patient's care. Further recommendations will depend on patient's clinical course. Please do not hesitate to contact me if you have any questions or concerns. This medical document was created using an electronic medical record system with [employer] system. Although this document has been carefully reviewed, there may still be some phonetic and typographical errors. These areas are purely typographical due to imperfections of the software programs, and do not reflect any compromise in the patient's medical care. Dietary Evaluation Review Comments: 1) Recommend CCHO-60, Cardiac 2gNa LoFat LoCholesterol diet when medically feasible. 2) If GI accessible but PO feeding is not an option, consider glucerna 1.2 @45ml/hr. In 24 hrs, pt will be receiving 65g protein and 1296 kcal.Adj and increase infusion rate as tolerated. 3) If NPO > 7 days and GI is not accesible, consider TPN to support 75% of her energy and protein needs. Expected Outcomes/Goals: Gradual weight loss, improved glucose Plan discussed with: Other (JESUS Drummond) Critical Care Time(min): 35 ALEXANDER SCHWAB MD Mar 06, 2024 23:25
[2024-03-06] MEDS: PROPOFOL 100 ML IV SCH (23:33)
[2024-03-07] VITALS (122 sets, daily range): BP systolic 84–123; BP diastolic 40–57; PULSE 71–143; RESP 15–27; TEMP 98.5–99.2; O2SAT 91–97
[2024-03-07 04:02] LABS: Mean Corpuscular Hemoglobin 29.3 pg (28.0-32.0); Mean Corpuscular Hgb Conc. 33.3 g/dL (32.0-36.0); Mean Corpuscular Volume 88.2 fL (80.0-100.0); Platelet Count (auto) 295 10^3/uL (140-450); Red Blood Cells 3.75 10^6/uL (4.5-5.90); Red Cell Distribution Width 14.8 % (11.8-14.3)
[2024-03-07 04:12] LABS: Basophils % (manual) 0 (0.0-2.0); Blast Cells 0; Metamyelocytes % 0; Myelocytes % 0; Reactive Lymphocytes 0
[2024-03-07 04:20] LABS: Albumin 3.7 g/dL (3.2-4.8); Anion Gap 24 (5-15); BUN/Creatinine Ratio 14.7 (10.0-20.0); Calcium 9.2 mg/dL (8.7-10.4); Glucose 84 mg/dL (74-106)
[2024-03-07 04:21] LABS: Total Protein 7.3 g/dL (5.7-8.2)
[2024-03-07 04:38] LABS: Alanine Aminotransferase 83 U/L (7-40); Alkaline Phosphatase 146 U/L (46-116); Aspartate Aminotransferase 66 U/L (13-40); Bilirubin, Total 0.2 mg/dL (0.2-1.0); Blood Urea Nitrogen 87 mg/dL (9-23); Carbon Dioxide 17 mmol/L (20-31); Chloride 91 mmol/L (98-107); Magnesium 2.7 mg/dL (1.6-2.6); Sodium 132 mmol/L (136-145)
[2024-03-07 05:11] LABS: Band Neutrophils % (manual) 2; Eosinophils % (manual) 5 (0-7); Lymphocytes % (manual) 11 (10.0-50.0); Monocytes % (manual) 4 (0-12); Platelet Estimate Adequate; Promyelocytes % 1
[2024-03-07] MEDS: SODIUM BICARB 8.4% 50Meq/50ml SYR INJ IV ONE (05:28)
[2024-03-07] MEDS: CALCIUM GLUC 1,000mg/50ml-NS 50 ML IV ONE (05:28)
[2024-03-07] MEDS: DEXTROSE (50%) 50ML SYRG IV ONE (05:29)
[2024-03-07] MEDS: SODIUM ZIRCONIUM CYCL 10 GM PAK PO ONE (05:29)
[2024-03-07] MEDS: FUROSEMIDE 20 MG/2 ML VIAL IV ONE (05:29)
[2024-03-07] MEDS: InsuLIN REG 1unit/0.01ml Soln (100units/ml) IV ONE (05:30)
[2024-03-07] MEDS: ALBUTEROL SULF 2.5 MG/0.5ML(0.5%) NEB SOLN NEB ONE (06:13)
--- NOTE | 2024-03-07 07:56 | DVH ---
XY CHEST PORTABLE, HISTORY: On MV via trach. Thank You! COMPARISON: XY CHEST XRAY 1 VIEW on DOS: 03/06/24, XY CHEST XRAY 1 VIEW on DOS: 03/05/24, XY CHEST XR AY 1 VIEW on DOS: 03/04/24 XY CHEST XRAY 1 VIEW on DOS: 03/06/24, XY CHEST XRAY 1 VIEW on DOS: 03/05/24, XY CHEST XRAY 1 VIEW on DOS: 03/04/24 TECHNICAL DATA: 1 view of the chest was obtained. FINDINGS: Lines and tubes: Tracheostomy in the mid thoracic trachea. Right CVC in the SVC. NG partially visuali zed. Cardiomediastinal silhouette: prominent Pulmonary vasculature: prominent Lung expansion: low Lung airspace: left basilar airspace opacity Lung interstitium: increased Pleura: normal Pneumothorax: no Bones: Unremarkable Other: no IMPRESSION: Lines and tubes as above. Similar lung aeration with left basilar airspace opacity and interstitial prominence.
[2024-03-07] MEDS: SODIUM ZIRCONIUM CYCL 10 GM PAK PO SCH (10:00)
--- NOTE | 2024-03-07 10:04 | ECG ---
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
[2024-03-07] MEDS: BUMETANIDE 2.5mg/10ml (0.25 mg/ml) INJ IV ONE ×2 (12:00→14:21)
--- NOTE | 2024-03-07 12:37 | ECG ---
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
--- NOTE | 2024-03-07 17:16 | DVHPN2 ---
Subjective Sedated and on mechanical ventilation via tracheostomy Reviewed: Care Plan, H&P, Labs, Medications, Previous Orders, Radiology, Other (Consultations) Changes from previous H/P or p: No Changes Objective Vitals Vital Signs Date Time Temp Pulse Resp B/P (MAP) Pulse Ox O2 Delivery O2 Flow Rate FiO2 03/07/24 16:43 98.6 79 25 86/45 (59) 94 98.6 03/07/24 16:05 45 03/07/24 15:45 Mechanical Ventilator+ Intake/Output Intake and Output 03/07/24 07:00 Intake Total 1375.909 ml Output Total 10 ml Balance 1365.909 ml Intake Oral 160 ml IV Total 1215.909 ml Tube Feeding 0 ml Output Urine Total 0 ml Stool Total 10 ml # Voids 5 General Appearance: Other (Sedated and on mechanical ventilation via tracheostomy) HEENT: Other (Tracheostomy) Lungs: Other (Mechanical ventilation breathing sounds) Cardiovascular: Regular rate, Normal S1, Normal S2 Abdomen: Other (Hypoactive bowel sounds) Genitourinary: Other (Sanders's) Neuro: Other (Sedated) Psych/Mental Status: Other (Sedated) Medications Current Medications Medications Dose Ordered Sig/Theodora Route Start Time Stop Time Status Last Admin Dose Admin Midazolam HCl 50 ml @ 1 mls/hr Q24H IV 02/11/24 09:15 02/20/24 17:30 1 MLS/HR Sodium Chloride 10 ml Q8HR IV 02/11/24 14:00 03/07/24 12:25 10 ML Atorvastatin Calcium 40 mg HS PO 02/12/24 22:00 03/06/24 21:33 40 MG Pantoprazole Sodium 40 mg DAILY IV 02/13/24 10:00 03/07/24 08:10 40 MG Enteral Nutritional Formula 1,000 ml 45ML/HR GT 02/16/24 12:45 03/03/24 03:31 1,000 ML Acetylcysteine 200 mg Q8HR NEB 02/18/24 22:00 03/07/24 14:13 200 MG Albuterol 2.5 mg Q8HR NEB 02/18/24 22:00 03/07/24 14:13 2.5 MG Diagnostic Test (Pha) 1 strip Q6HR 02/20/24 12:00 03/07/24 11:51 1 STRIP Insulin Human Regular Q6HR SC 02/20/24 12:00 03/05/24 12:38 2 UNITS Dextrose 50 ml UD PRN IV 02/20/24 08:45 Hydralazine HCl 10 mg Q6HP PRN IV 02/24/24 12:45 02/24/24 21:33 10 MG Artificial Tears 1 drop Q4HR EACHEYE 02/24/24 16:00 03/07/24 16:39 1 DROP Aspirin 81 mg DAILY PO 02/25/24 10:00 03/07/24 08:10 81 MG Metoprolol Tartrate 25 mg DAILY PO 02/25/24 12:00 Hold 02/25/24 12:11 25 MG Norepinephrine Bitartrate 250 ml @ 0.938 mls/ hr Q24H IV 02/25/24 16:45 03/07/24 12:25 11.25 MLS/HR Enteral Nutritional Formula 27.5 gm BIDWM GT 02/28/24 18:00 03/07/24 07:40 27.5 GM Heparin Sodium (Porcine) 5,000 units Q12HR SC 03/01/24 22:00 03/07/24 08:12 5,000 UNITS Metoclopramide HCl 10 mg Q8HR IV 03/05/24 14:00 03/07/24 05:29 10 MG Fentanyl Citrate 250 ml @ 2.5 mls/hr Q24H IV 03/05/24 22:45 03/06/24 18:30 17.5 MLS/HR Propofol 100 ml @ 3.39 mls/hr Q24H IV 03/06/24 22:15 03/07/24 16:33 20.34 MLS/HR Zirconium Oxide 10 gm Q8HR PO 03/07/24 10:00 03/09/24 22:00 03/07/24 14:21 10 GM Laboratory Results Laboratory Tests 03/07/24 03:21 03/07/24 10:27 Chemistry Test 03/07/24 03:21 Albumin 3.7 g/dL (3.2-4.8) Calcium Level 9.2 mg/dL (8.7-10.4) Magnesium Level 2.7 mg/dL (1.6-2.6) H Total Protein 7.3 g/dL (5.7-8.2) LFT Test 03/07/24 03:21 Alanine Aminotransferase (ALT) 83 U/L (7-40) H Alkaline Phosphatase 146 U/L (46-116) H Aspartate Amino Transferase (AST) 66 U/L (13-40) H Total Bilirubin 0.2 mg/dL (0.2-1.0) Urinalysis Test 02/20/24 14:57 Urine Color Brown (Yellow) H Urine Clarity Ex.turbid (Clear) Urine pH 5.5 (5.0-9.0) Urine Specific [place] 1.014 (1.001-1.035) Urine Protein 2+ (Negative) H Urine Ketones Negative (Negative) Urine Blood 3+ /uL (Negative) H Urine Nitrite Negative (Negative) Urine Bilirubin Negative (Negative) Urine Urobilinogen Normal mg/dL (Negative) Urine Leukocyte Esterase 1+ /uL (Negative) Urine RBC 124 /hpf (0 - 3) Urine WBC 107 /hpf (0 - 3) Urine Squamous Epithelial Cells Few /hpf (<5) Urine Bacteria Few /hpf (None Seen) H Urine Mucus Few (None Seen) Urine Creatinine 85.51 mg/dL (30.0-125.0) Urine Sodium 15 mmol/L (40-220) L Urine Glucose Normal mg/dL (Normal) Microbiology Microbiology Date/Time Source Procedure Growth Status 03/05/24 10:40 Bronchial Washings Gram Stain - Final Resulted 03/05/24 10:40 Bronchial Washings Respiratory Culture - Preliminary Resulted 02/14/24 12:04 Urine - [place] Urine Culture - Final Complete 02/12/24 13:30 Blood Blood Culture - Final NO GROWTH AFTER 5 DAYS OF INCUBATION. Complete 02/11/24 13:06 Nose MRSA Screen - Final Complete Labs and/or images reviewed: Labs reviewed by me, Image(s) reviewed by me Assessment/Plan Assessment/Plan Covering Dr. Estrella / Dr. Larsen: #Acute metabolic/toxic encephalopathy secondary to septic shock and acute CVA #Acute hypoxic respiratory failure secondary to pneumonia and CHF exacerbation #Acute on chronic hypercarbic respiratory failure #Acute respiratory distress syndrome #Left lower lobe pneumonia Gram-positive/Gram-negative #Septic shock due to MRSA and fungal pneumonia #Leukocytosis due to septic shock #Acute CVA #KARISSA; likely ATN; vasomotor nephropathy; suspected vancomycin toxicity #Acute diastolic CHF #Emphysema #Pulmonary edema #Carotid artery stenosis #DVT and PE ruled out #Fatty liver #Infrarenal aortic aneurysm #Prostatomegaly #Constipation #Morbid obesity Reviewed the available imaging studies including chest x-ray and echocardiogram Reviewed the available lab studies including ABGs and cultures Continue IV pressors as indicated Continue IV antibiotics as indicated Continue oxygen therapy via mechanical ventilation via tracheostomy as per pulmonology Continue aspirin and statin Avoid nephrotoxic agents and hemodialysis as per nephrology Housekeeping Room Inspector team is following as the patient no family Continue close monitoring 55 minutes of critical care time Late Entry This medical document was created using an electronic medical record system with computerized dictation system. Although this document has been carefully reviewed, there might still be some phonetic and typographical errors. These areas are purely typographical due to imperfections of the software programs, and do not reflect any compromise in the patient's medical care. Plan discussed with: Other (Nurse) My Orders Orders - CRISTIANO BELL MD Procedure Category Date Status Time Complete Blood Count LAB 03/08/24 Verified 04:00 Comprehensive LAB 03/08/24 Verified Metabolic Panel 04:00 Magnesium LAB 03/08/24 Verified 04:00 1 View Decubitus XY 03/08/24 Logged Chest Xray 07:00 Abg W/ Co-Ox RT 03/08/24 Logged 06:00 Date of Service: Mar 07, 2024 Billing Provider: CRISTIANO BELL MD Common Visit Codes: [id number] CARE 30-74 MIN (55 minutes) CRISTIANO BELL MD Mar 07, 2024 17:16
--- NOTE | 2024-03-07 17:33 | DVHPN2 ---
Progress Note Date Seen: Mar 07, 2024 Has the PT tested + for MRSA If YES, has PT been informed?: No Medical Necessity Reason Pt with a Central, PICC or Fol: Yes The following are medically ne: Central Line, Roblero Catheter Reason for roblero catheter: Strict I&O Subjective Patient reports: Other Review of Systems: Deferred Objective vital signs Vital Sign Date Time Temp Pulse Resp B/P (MAP) Pulse Ox O2 Delivery O2 Flow Rate FiO2 03/07/24 16:43 98.6 79 25 86/45 (59) 94 98.6 03/07/24 16:05 45 03/07/24 15:45 Mechanical Ventilator+ Total Intake and Output 03/06/24 03/06/24 03/07/24 15:00 23:00 07:00 Intake Total 363.3 ml 421.285 ml 591.324 ml Output Total 10 ml Balance 363.3 ml 411.285 ml 591.324 ml medications Current Medications Medications Dose Ordered Sig/Theodora Route Start Time Stop Time Status Last Admin Dose Admin Midazolam HCl 50 ml @ 1 mls/hr Q24H IV 02/11/24 09:15 02/20/24 17:30 1 MLS/HR Sodium Chloride 10 ml Q8HR IV 02/11/24 14:00 03/07/24 12:25 10 ML Atorvastatin Calcium 40 mg HS PO 02/12/24 22:00 03/06/24 21:33 40 MG Pantoprazole Sodium 40 mg DAILY IV 02/13/24 10:00 03/07/24 08:10 40 MG Enteral Nutritional Formula 1,000 ml 45ML/HR GT 02/16/24 12:45 03/03/24 03:31 1,000 ML Acetylcysteine 200 mg Q8HR NEB 02/18/24 22:00 03/07/24 14:13 200 MG Albuterol 2.5 mg Q8HR NEB 02/18/24 22:00 03/07/24 14:13 2.5 MG Diagnostic Test (Pha) 1 strip Q6HR 02/20/24 12:00 03/07/24 11:51 1 STRIP Insulin Human Regular Q6HR SC 02/20/24 12:00 03/05/24 12:38 2 UNITS Dextrose 50 ml UD PRN IV 02/20/24 08:45 Hydralazine HCl 10 mg Q6HP PRN IV 02/24/24 12:45 02/24/24 21:33 10 MG Artificial Tears 1 drop Q4HR EACHEYE 02/24/24 16:00 03/07/24 16:39 1 DROP Aspirin 81 mg DAILY PO 02/25/24 10:00 03/07/24 08:10 81 MG Metoprolol Tartrate 25 mg DAILY PO 02/25/24 12:00 Hold 02/25/24 12:11 25 MG Norepinephrine Bitartrate 250 ml @ 0.938 mls/ hr Q24H IV 02/25/24 16:45 03/07/24 12:25 11.25 MLS/HR Enteral Nutritional Formula 27.5 gm BIDWM GT 02/28/24 18:00 03/07/24 07:40 27.5 GM Heparin Sodium (Porcine) 5,000 units Q12HR SC 03/01/24 22:00 03/07/24 08:12 5,000 UNITS Metoclopramide HCl 10 mg Q8HR IV 03/05/24 14:00 03/07/24 05:29 10 MG Fentanyl Citrate 250 ml @ 2.5 mls/hr Q24H IV 03/05/24 22:45 03/06/24 18:30 17.5 MLS/HR Propofol 100 ml @ 3.39 mls/hr Q24H IV 03/06/24 22:15 03/07/24 16:33 20.34 MLS/HR Zirconium Oxide 10 gm Q8HR PO 03/07/24 10:00 03/09/24 22:00 03/07/24 14:21 10 GM Examination: GENERAL:Abnormal, MSK:Abnormal, SKIN:Abnormal, NEURO:Abnormal laboratory and microbiology Laboratory Tests 03/07/24 10:27 03/07/24 03:21 Test 03/07/24 03:21 Range/Units Serum Glucose 84 74-106 mg/dL Microbiology Date/Time Source Procedure Growth Status 03/05/24 10:40 Bronchial Washings Gram Stain - Final Resulted 03/05/24 10:40 Bronchial Washings Respiratory Culture - Preliminary Resulted 02/14/24 12:04 Urine - Roblero Port Urine Culture - Final Complete 02/12/24 13:30 Blood Blood Culture - Final NO GROWTH AFTER 5 DAYS OF INCUBATION. Complete 02/11/24 13:06 Nose MRSA Screen - Final Complete Problem List/Assessment/Plan Problem List/Assessment/Plan Assessment/Plan Acute kidney injury likely ATN due to hypotension + vancotoxicity needing HD Acute CVA no previous ckd acute respiratory failure with ARDS septic shock due to PNA bradycardia hypervolemic recs next dialysis friday given staffing issues HD tomorrow medical management of k as ordered Plan discussed with: Other My Orders My Orders Orders - DEMIAN DE LA TORRE MD Procedure Category Date Status Time Sodium Zirconium PHA 03/07/24 In Process Cyclosilicate 10:00 Dietary Evaluation Review Comments: 1) Recommend CCHO-60, Cardiac 2gNa LoFat LoCholesterol diet when medically feasible. 2) If GI accessible but PO feeding is not an option, consider glucerna 1.2 @45ml/hr. In 24 hrs, pt will be receiving 65g protein and 1296 kcal.Adj and increase infusion rate as tolerated. 3) If NPO > 7 days and GI is not accesible, consider TPN to support 75% of her energy and protein needs. Expected Outcomes/Goals: Gradual weight loss, improved glucose DEMIAN DE LA TORRE MD Mar 07, 2024 17:33
--- NOTE | 2024-03-07 23:11 | DVHPN2 ---
Progress Note - Dictate Date Seen: Mar 07, 2024 Has the PT tested + for MRSA If YES, has PT been informed?: No Medical Necessity Reason Pt with a Central, PICC or Fol: Yes The following are medically ne: Central Line, Roblero Catheter Reason for roblero catheter: Strict I&O Subjective Patient seen and examined at bedside. S/p trach. Sedated, intubated on mechanical ventilator. Overnight events reviewed. vital signs Vital Sign Date Time Temp Pulse Resp B/P (MAP) Pulse Ox O2 Delivery O2 Flow Rate FiO2 03/07/24 22:55 112/44 03/07/24 22:52 74 26 95 03/07/24 22:00 45 03/07/24 22:00 Mechanical Ventilator+ 03/07/24 20:13 99.2 99.2 Total Intake and Output 03/06/24 03/06/24 03/07/24 15:00 23:00 07:00 Intake Total 363.3 ml 421.285 ml 591.324 ml Output Total 10 ml Balance 363.3 ml 411.285 ml 591.324 ml medications Current Medications Medications Dose Ordered Sig/Theodora Route Start Time Stop Time Status Last Admin Dose Admin Midazolam HCl 50 ml @ 1 mls/hr Q24H IV 02/11/24 09:15 02/20/24 17:30 1 MLS/HR Sodium Chloride 10 ml Q8HR IV 02/11/24 14:00 03/07/24 21:47 10 ML Atorvastatin Calcium 40 mg HS PO 02/12/24 22:00 03/07/24 21:42 40 MG Pantoprazole Sodium 40 mg DAILY IV 02/13/24 10:00 03/07/24 08:10 40 MG Enteral Nutritional Formula 1,000 ml 45ML/HR GT 02/16/24 12:45 03/03/24 03:31 1,000 ML Acetylcysteine 200 mg Q8HR NEB 02/18/24 22:00 03/07/24 21:42 200 MG Albuterol 2.5 mg Q8HR NEB 02/18/24 22:00 03/07/24 21:42 2.5 MG Diagnostic Test (Pha) 1 strip Q6HR 02/20/24 12:00 03/07/24 18:11 1 STRIP Insulin Human Regular Q6HR SC 02/20/24 12:00 03/05/24 12:38 2 UNITS Dextrose 50 ml UD PRN IV 02/20/24 08:45 Hydralazine HCl 10 mg Q6HP PRN IV 02/24/24 12:45 02/24/24 21:33 10 MG Artificial Tears 1 drop Q4HR EACHEYE 02/24/24 16:00 03/07/24 21:42 1 DROP Aspirin 81 mg DAILY PO 02/25/24 10:00 03/07/24 08:10 81 MG Metoprolol Tartrate 25 mg DAILY PO 02/25/24 12:00 Hold 02/25/24 12:11 25 MG Norepinephrine Bitartrate 250 ml @ 0.938 mls/ hr Q24H IV 02/25/24 16:45 03/07/24 12:25 11.25 MLS/HR Enteral Nutritional Formula 27.5 gm BIDWM GT 02/28/24 18:00 03/07/24 07:40 27.5 GM Heparin Sodium (Porcine) 5,000 units Q12HR SC 03/01/24 22:00 03/07/24 21:43 5,000 UNITS Metoclopramide HCl 10 mg Q8HR IV 03/05/24 14:00 03/07/24 05:29 10 MG Fentanyl Citrate 250 ml @ 2.5 mls/hr Q24H IV 03/05/24 22:45 03/07/24 21:47 17.5 MLS/HR Propofol 100 ml @ 3.39 mls/hr Q24H IV 03/06/24 22:15 03/07/24 22:55 27.12 MLS/HR Zirconium Oxide 10 gm Q8HR PO 03/07/24 10:00 03/09/24 22:00 03/07/24 21:45 10 GM objective Gen.: Patient lying in bed in medical ICU. S/p trach. Sedated, intubated on mechanical ventilator. Head: Normocephalic, atraumatic. Eyes: PERRLA. Ears: Normal external anatomy. Throat: Endotracheal tube and orogastric tube in place. Neck: Trach in place. Chest: Transmitted breath sounds bilaterally. Decreased air entry bilaterally. No wheezing. Bibasilar crackles. Cardiovascular: Positive S1, positive S2. Regular rate and rhythm. Abdomen: Positive bowel sounds in all 4 quadrants. Soft, nontender, nondistended. : Roblero in place. Normal external genitalia. Rectal: Deferred. Skin: Warm, dry. Intact. Extremities: 2+ radial pulses bilaterally. No lower extremity edema. Neuro: Sedated. laboratory and microbiology Laboratory Tests 03/07/24 10:27 03/07/24 03:21 Test 03/07/24 03:21 Range/Units Serum Glucose 84 74-106 mg/dL Assessment/Plan Impression: Acute hypoxic respiratory failure secondary to pneumonia and CHF exacerbation Acute on chronic hypercarbic respiratory failure Acute respiratory distress syndrome On mechanical ventilator Pneumonia, likely Gram-negative CHF exacerbation Pulmonary edema Obesity with a BMI of 32.6 Acute stroke Events: Patient is s/p trach. Trach care OK to remove sutures on day 7-10 postop. Continue support on vent Place on full vent support if any distress On assist control with a respiratory rate of 26, tidal volume 550, PEEP of 10, FiO2 at 45%. Pt has not tolerated decrease in PEEP. Tube feeds for nutritional support Sedated on Fentanyl, Propofol drip. On pressors for hemodynamic support Levophed 6 mcg/min Titrate to keep mean arterial pressure greater than 65 mmHg. CXR demonstrates tracheostomy in the mid thoracic trachea. Right CVC in the SVC. NG partially visualized. Left basilar airspace opacity, S/p bronchoscopy on 03/05/24. See separate procedure note for full details. Follow up bronchial washings and culture. Monitor renal function Monitor electrolytes. Supplement as necessary. HD per Nephrology Labs and imaging reviewed. Rest of plan as noted below. Plan: s/p trach On mechanical ventilator Continue support on vent Place on full vent support if any distress CT head notable for hypodense pretty 10 x 8 mm in size in the simon with the left side from strenuous for acute infarct. Chronic periventricular ischemic changes. Cerebral and cerebellar atrophy likely age-related. Recommend neurology evaluation. S/p bronchoscopy w/ bronchoalveolar lavage and central line placement on 02/22. Please see separate procedure note for details. S/p bronchoscopy with right middle lobe bronchoalveolar lavage on 02/15/24. See procedure note for details. On assist control with a respiratory rate of 26, tidal volume 550, PEEP of 10, FiO2 at 45%. Titrate FIO2 to keep O2 saturation above 92%. VAP bundle Daily ABG and CXR while intubated. Sedate for ventilator synchrony On pressors for hemodynamic support Titrate to keep mean arterial pressure greater than 65 mmHg. Continue antibiotics. F/u cultures. Diurese to euvolemia. Monitor ins/outs. On Lasix BID. Monitor renal function due to acute kidney injury. Monitor electrolytes. Supplement as necessary. Nutritional support. Accucheks, ISS. GI/DVT prophylaxis. Condition: Critical Prognosis: Poor given multiple comorbidities. Rest of plan per hospitalist and other consultants. A total of 35 minutes of critical care time was spent reviewing the patient record, examining the patient, making a diagnostic and therapeutic plan, discussing this plan with the medical personnel, following up on diagnostic studies and following the patient for clinical stability excluding any and all procedures. At least 50% of this time was spent in direct, [id number] contact. Thank you GOIRGI Huffman for allowing me to participate in this patient's care. Further recommendations will depend on patient's clinical course. Please do not hesitate to contact me if you have any questions or concerns. This medical document was created using an electronic medical record system with [employer] dictation system. Although this document has been carefully reviewed, there may still be some phonetic and typographical errors. These areas are purely typographical due to imperfections of the software programs, and do not reflect any compromise in the patient's medical care. Dietary Evaluation Review Comments: 1) Recommend CCHO-60, Cardiac 2gNa LoFat LoCholesterol diet when medically feasible. 2) If GI accessible but PO feeding is not an option, consider glucerna 1.2 @45ml/hr. In 24 hrs, pt will be receiving 65g protein and 1296 kcal.Adj and increase infusion rate as tolerated. 3) If NPO > 7 days and GI is not accesible, consider TPN to support 75% of her energy and protein needs. Expected Outcomes/Goals: Gradual weight loss, improved glucose Plan discussed with: Other (JESUS Orellana) Critical Care Time(min): 35 ALEXANDER SCHWAB MD Mar 07, 2024 23:11
[2024-03-08] VITALS (119 sets, daily range): BP systolic 73–136; BP diastolic 28–66; PULSE 69–99; RESP 25–27; TEMP 98.1–99; O2SAT 88–97
--- NOTE | 2024-03-08 04:39 | DVH ---
CHEST RADIOGRAPH Indication: On mechanical ventilation via tracheostomy. Thank You! Technique: Single frontal view of the chest was obtained COMPARISON: XY CHEST PORTABLE on DOS: 03/07/24, XY CHEST XRAY 1 VIEW on DOS: 03/06/24, XY CHEST XRAY 1 VIEW on DOS: 03/05/24 FINDINGS: Lines and Tubes: Tracheostomy , right central venous catheter and enteric catheter in satisfactory po sition. Lungs: Multifocal airspace disease. Pleura: No effusion. No pneumothorax. Cardiomediastinal contours: Unremarkable Bones: Unremarkable IMPRESSION: Lines and tubes in satisfactory position. No significant interval change.
[2024-03-08 05:14] LABS: Hematocrit 32.8 % (41.0-53.0); Mean Corpuscular Hemoglobin 29.4 pg (28.0-32.0); Mean Corpuscular Hgb Conc. 33.6 g/dL (32.0-36.0); Mean Corpuscular Volume 87.6 fL (80.0-100.0); Platelet Count (auto) 320 10^3/uL (140-450); Red Blood Cells 3.74 10^6/uL (4.5-5.90); Red Cell Distribution Width 14.8 % (11.8-14.3); White Blood Cell 15.2 10^3/uL (4.4-10.8)
[2024-03-08 05:20] LABS: Band Neutrophils % (manual) 0; Basophils % (manual) 0 (0.0-2.0); Blast Cells 0; Metamyelocytes % 0; Myelocytes % 0; Promyelocytes % 0; Reactive Lymphocytes 0
[2024-03-08 05:26] LABS: Anion Gap 27 (5-15)
[2024-03-08 05:36] LABS: Alanine Aminotransferase 90 U/L (7-40); Albumin 3.6 g/dL (3.2-4.8); Alkaline Phosphatase 144 U/L (46-116); Aspartate Aminotransferase 79 U/L (13-40); Bilirubin, Total < 0.2 mg/dL (0.2-1.0); Carbon Dioxide 14 mmol/L (20-31); Chloride 91 mmol/L (98-107); Glucose 114 mg/dL (74-106); Magnesium 2.7 mg/dL (1.6-2.6); Sodium 132 mmol/L (136-145); Total Protein 7.2 g/dL (5.7-8.2)
[2024-03-08 05:37] LABS: Blood Urea Nitrogen 99 mg/dL (9-23); Potassium 6.1 mmol/L (3.5-5.1)
[2024-03-08 06:55] LABS: Eosinophils % (manual) 6 (0-7); Lymphocytes % (manual) 8 (10.0-50.0); Monocytes % (manual) 7 (0-12); Platelet Estimate Adequate
[2024-03-08] MEDS: SODIUM BICARB 8.4% 50Meq/50ml SYR Vial IV ONE ×2 (08:27→10:09)
[2024-03-08 08:33] LABS: Base Excess -10.7 mmol/L (-2.0-3.0)
[2024-03-08] MEDS: ALBUTEROL SULF 2.5 MG/0.5ML(0.5%) NEB SOLN NEB ONE (10:08)
[2024-03-08] MEDS: CALCIUM GLUC 1,000mg/50ml-NS 50 ML IV ONE (10:09)
[2024-03-08] MEDS: BUMETANIDE 2.5mg/10ml (0.25 mg/ml) INJ IV ONE (10:10)
[2024-03-08] MEDS: DEXTROSE (50%) 50ML SYRG IV ONE (10:11)
[2024-03-08] MEDS: InsuLIN REG 1unit/0.01ml Soln (100units/ml) IV ONE (10:26)
--- NOTE | 2024-03-08 10:31 | DVHPN2 ---
Progress Note - Dictate Date Seen: Mar 08, 2024 Has the PT tested + for MRSA If YES, has PT been informed?: No Medical Necessity Reason Pt with a Central, PICC or Fol: Yes The following are medically ne: Central Line, Roblero Catheter Reason for roblero catheter: Strict I&O Subjective remains in icu in critical condition elevated potassium noted vital signs Vital Sign Date Time Temp Pulse Resp B/P (MAP) Pulse Ox O2 Delivery O2 Flow Rate FiO2 03/08/24 10:19 26 96 Mechanical Ventilator+ 40 40 03/08/24 10:10 99/51 03/08/24 09:50 45 03/08/24 09:50 73 03/08/24 04:08 99.0 99.0 Total Intake and Output 03/07/24 03/07/24 03/08/24 15:00 23:00 07:00 Intake Total 360.942 ml 436.338 ml 812.898 ml Output Total 10 ml 15 ml Balance 360.942 ml 426.338 ml 797.898 ml medications Current Medications Medications Dose Ordered Sig/Theodora Route Start Time Stop Time Status Last Admin Dose Admin Midazolam HCl 50 ml @ 1 mls/hr Q24H IV 02/11/24 09:15 02/20/24 17:30 1 MLS/HR Sodium Chloride 10 ml Q8HR IV 02/11/24 14:00 03/08/24 05:30 10 ML Atorvastatin Calcium 40 mg HS PO 02/12/24 22:00 03/07/24 21:42 40 MG Pantoprazole Sodium 40 mg DAILY IV 02/13/24 10:00 03/08/24 08:28 40 MG Enteral Nutritional Formula 1,000 ml 45ML/HR GT 02/16/24 12:45 03/03/24 03:31 1,000 ML Acetylcysteine 200 mg Q8HR NEB 02/18/24 22:00 03/08/24 06:15 200 MG Albuterol 2.5 mg Q8HR NEB 02/18/24 22:00 03/08/24 06:13 2.5 MG Diagnostic Test (Pha) 1 strip Q6HR 02/20/24 12:00 03/08/24 05:30 1 STRIP Insulin Human Regular Q6HR SC 02/20/24 12:00 03/05/24 12:38 2 UNITS Dextrose 50 ml UD PRN IV 02/20/24 08:45 Hydralazine HCl 10 mg Q6HP PRN IV 02/24/24 12:45 02/24/24 21:33 10 MG Artificial Tears 1 drop Q4HR EACHEYE 02/24/24 16:00 03/08/24 08:28 1 DROP Aspirin 81 mg DAILY PO 02/25/24 10:00 03/07/24 08:10 81 MG Metoprolol Tartrate 25 mg DAILY PO 02/25/24 12:00 Hold 02/25/24 12:11 25 MG Norepinephrine Bitartrate 250 ml @ 0.938 mls/ hr Q24H IV 02/25/24 16:45 03/08/24 05:17 15 MLS/HR Enteral Nutritional Formula 27.5 gm BIDWM GT 02/28/24 18:00 03/07/24 07:40 27.5 GM Heparin Sodium (Porcine) 5,000 units Q12HR SC 03/01/24 22:00 03/07/24 21:43 5,000 UNITS Metoclopramide HCl 10 mg Q8HR IV 03/05/24 14:00 03/07/24 05:29 10 MG Fentanyl Citrate 250 ml @ 2.5 mls/hr Q24H IV 03/05/24 22:45 03/07/24 21:47 17.5 MLS/HR Propofol 100 ml @ 3.39 mls/hr Q24H IV 03/06/24 22:15 03/08/24 06:10 27.12 MLS/HR Zirconium Oxide 10 gm Q8HR PO 03/07/24 10:00 03/09/24 22:00 03/08/24 05:30 10 GM objective obese male intubated b/l bruising diffuse rash anasarca improved roblero laboratory and microbiology Laboratory Tests 03/08/24 05:02 Test 03/08/24 05:02 Range/Units Serum Glucose 114 H 74-106 mg/dL Assessment/Plan Acute kidney injury due to prerenal + hypotension + vancotoxicity Acute CVA no previous ckd acute respiratory failure with ARDS septic shock due to PNA hypervolemic hyperkalemia on inpatient HD hyperkalemia protocol ordered HD ordered for today change diet to low K lokelma pressors to keep MAP > 65 I/O Critically ill prognosis is poor Dietary Evaluation Review Comments: 1) Recommend CCHO-60, Cardiac 2gNa LoFat LoCholesterol diet when medically feasible. 2) If GI accessible but PO feeding is not an option, consider glucerna 1.2 @45ml/hr. In 24 hrs, pt will be receiving 65g protein and 1296 kcal.Adj and increase infusion rate as tolerated. 3) If NPO > 7 days and GI is not accesible, consider TPN to support 75% of her energy and protein needs. Expected Outcomes/Goals: Gradual weight loss, improved glucose Plan discussed with: Other Critical Care Time(min): 35 LETY LAM MD Mar 08, 2024 10:31
[2024-03-08] MEDS ORDERED: VANCOMYCIN PER PHARMACY 0 MG IV SCH (13:30)
[2024-03-08] MEDS: CATHFLO ACTIVASE (ALTEPLASE) 2 MG VIAL IV ONE ×2 (14:45→21:05)
[2024-03-08] MEDS ORDERED: ALBUMIN 25% 100 ML IV ONE ×2 (15:15)
[2024-03-08 15:32] LABS: INR 1.01 (0.9-1.15); Prothrombin Time 10.7 sec (9.3-11.8)
[2024-03-08] MEDS: VANCOMYCIN 500mg/100mL 100 ML IV ONE (16:00)
[2024-03-08] MEDS: ALBUMIN 25% 50 ML IV ONE ×2 (16:15→17:06)
--- NOTE | 2024-03-08 16:29 | DVHPN2 ---
Progress Note - Dictate Date Seen: Mar 08, 2024 Has the PT tested + for MRSA If YES, has PT been informed?: No Medical Necessity Reason Pt with a Central, PICC or Fol: Yes The following are medically ne: Central Line, Roblero Catheter Reason for roblero catheter: Strict I&O Subjective Mr. Glass is a 78 years old gentleman with a history of obesity, the patient was [facility] to the [facility] on 02/[facility]2024 with a chief company of elevated blood pressure. I have seen and examined the patient, I have discussed with his nurse, he is going through hemodialysis. He stopped post tracheostomy, responds to strong painful stimuli Levo 16mcg/min (on HD), fentanyl 175 mcg/hour, propofol: 35 mcg/minute. FiO2: 40% UDS, 02/11/2024: Negative Plasma alcohol, 02/11/2024: 3.4 Urinalysis, 02/11/2024: Unremarkable ABG, 02/11/2024: Respiratory acidosis CBC, 02/11/2024: Unremarkable BMP 02/11/2024: Unremarkable HCO3, 02/11/2024: 29, 02/12/2024, 33 Liver function tests, 02/12/2024: Normal HbA1c, 02/11/2024: 7.8 TG/Chol/LDL/LDL/HDL, 02/11/2024: 190/171/109/42 TSH, 02/11/2024: 4.29 EEG, 02/12/2024: Moderately abnormal EEG Carotid Doppler, 02/11/2024: Normal left ventricular size and dimension. Normal left ventricular systolic function estimated ejection fraction 60%. There is a grade 1 diastolic dysfunction. Normal right ventricular size and dimension. Normal right ventricular systolic function. Normal biatrial size and dimension. The aortic valve is thickened and sclerotic there is [id number] aortic valve stenosis with a peak gradient of33 and mean gradient of 18 mm of mercury. The mitral valve is mildly thickened there is mild mitral valve regurgitation. There is mild tricuspid valve regurgitation. The pulmonary valve is grossly normal. No pericardial effusion. Carotid Doppler, 02/11/2024: 1. 50-69% stenosis at the level of the left proximal ICA. 2. No hemodynamically significant stenosis noted in the right carotid system. Chest x-ray, 02/11/2024: Lines and tubes in appropriate position. Cardiomegaly with small left pleural effusion and diffuse interstitial opacities which may reflect pulmonary edema CT head, 02/11/2024: 1. Well-defined hypodensity of approximate size 10 x 8 mm in the simon on the left side, concerning for acute infarct. 2. Chronic periventricular ischemic changes. 3. Cerebral and cerebellar atrophy, likely age-related. 4. Chronic and / or ancillary findings as described above. 5. Advised further evaluation with MRI brain without contrast. CT head, 02/15/2024: 1. No acute intracranial process. 2. Moderate acute pansinusitis. vital signs Vital Sign Date Time Temp Pulse Resp B/P (MAP) Pulse Ox O2 Delivery O2 Flow Rate FiO2 03/08/24 16:06 45 03/08/24 16:06 26 96 Mechanical Ventilator+ 03/08/24 16:06 76 03/08/24 15:30 98.3 131/60 (83) 98.3 03/08/24 09:50 45 Total Intake and Output 03/07/24 03/07/24 03/08/24 15:00 23:00 07:00 Intake Total 360.942 ml 436.338 ml 812.898 ml Output Total 10 ml 15 ml Balance 360.942 ml 426.338 ml 797.898 ml medications Current Medications Medications Dose Ordered Sig/Theodora Route Start Time Stop Time Status Last Admin Dose Admin Midazolam HCl 50 ml @ 1 mls/hr Q24H IV 02/11/24 09:15 02/20/24 17:30 1 MLS/HR Sodium Chloride 10 ml Q8HR IV 02/11/24 14:00 03/08/24 14:15 10 ML Atorvastatin Calcium 40 mg HS PO 02/12/24 22:00 03/07/24 21:42 40 MG Pantoprazole Sodium 40 mg DAILY IV 02/13/24 10:00 03/08/24 08:28 40 MG Enteral Nutritional Formula 1,000 ml 45ML/HR GT 02/16/24 12:45 03/03/24 03:31 1,000 ML Acetylcysteine 200 mg Q8HR NEB 02/18/24 22:00 03/08/24 13:22 200 MG Albuterol 2.5 mg Q8HR NEB 02/18/24 22:00 03/08/24 13:21 2.5 MG Diagnostic Test (Pha) 1 strip Q6HR 02/20/24 12:00 03/08/24 12:00 1 STRIP Insulin Human Regular Q6HR SC 02/20/24 12:00 03/05/24 12:38 2 UNITS Dextrose 50 ml UD PRN IV 02/20/24 08:45 Artificial Tears 1 drop Q4HR EACHEYE 02/24/24 16:00 03/08/24 14:15 1 DROP Aspirin 81 mg DAILY PO 02/25/24 10:00 03/07/24 08:10 81 MG Norepinephrine Bitartrate 250 ml @ 0.938 mls/ hr Q24H IV 02/25/24 16:45 03/08/24 05:17 15 MLS/HR Enteral Nutritional Formula 27.5 gm BIDWM GT 02/28/24 18:00 03/07/24 07:40 27.5 GM Heparin Sodium (Porcine) 5,000 units Q12HR SC 03/01/24 22:00 03/07/24 21:43 5,000 UNITS Metoclopramide HCl 10 mg Q8HR IV 03/05/24 14:00 03/07/24 05:29 10 MG Fentanyl Citrate 250 ml @ 2.5 mls/hr Q24H IV 03/05/24 22:45 03/08/24 10:40 17.5 MLS/HR Propofol 100 ml @ 3.39 mls/hr Q24H IV 03/06/24 22:15 03/08/24 10:37 23.73 MLS/HR Zirconium Oxide 10 gm Q8HR PO 03/07/24 10:00 03/09/24 22:00 03/08/24 14:00 10 GM Vancomycin HCl 0 ml @ 0 mls/hr UD IV 03/08/24 13:30 Fluconazole 100 ml @ 100 mls/hr DAILY IV 03/09/24 10:00 objective The patient is well-nourished and well-developed with no distress. The patient is intubated MENTAL STATUS: Subjective CRANIAL NERVES: Pupils are equal, round and slightly reactive, 1-2mm. There are corneal reflexes and doll's eyes phenomenon. No signs of facial weakness. There are gagging or coughing reflexes SENSATION: No responses to pain stimuli. MOTOR: Normal tone in the upper and lower extremity. Normal muscle bulk. No fasciculations. No spontaneous movement. REFLEXES: Deep tendon reflexes are symmetrical. No pathological reflexes. CEREBELLAR/COORDINATION: Deferred GAIT/STATION: deferred. laboratory and microbiology Laboratory Tests 03/08/24 05:02 Test 03/08/24 05:02 Range/Units Serum Glucose 114 H 74-106 mg/dL Problem List Altered mental status Hypoxic encephalopathy Metabolic encephalopathy Respiratory failure Hypertension emergency Respiratory acidosis Sepsis, ? Septic shock Pneumonia Cellulitis in the legs Stroke per the 1st CT, not confirmed by the 2nd CT head on 02/15/2024 Left ICA moderate stenosis Assessment/Plan Monitoring Supportive treatments ICU care Consider MRI brain scan later Stabilize vitals Respiratory support/vent management Blood culture IV antibiotics Aspirin 81 mg daily Lipitor 40 mg daily DVT prophylaxis Pulmonology evaluation Cardiology evaluation Social service on case More recommendation per clinical course This medical document was created using an electronic medical record system with [employer] dictation system. Although this document has been carefully reviewed, there may still be some phonetic and typographical errors. These areas are purely typographical due to imperfections of the software programs, and do not reflect any compromise in the patient's medical care. Prognosis poor Dietary Evaluation Review Comments: 1) Recommend CCHO-60, Cardiac 2gNa LoFat LoCholesterol diet when medically feasible. 2) If GI accessible but PO feeding is not an option, consider glucerna 1.2 @45ml/hr. In 24 hrs, pt will be receiving 65g protein and 1296 kcal.Adj and increase infusion rate as tolerated. 3) If NPO > 7 days and GI is not accesible, consider TPN to support 75% of her energy and protein needs. Expected Outcomes/Goals: Gradual weight loss, improved glucose Plan discussed with: Other TRAV CRUZ MD Mar 08, 2024 16:29
--- NOTE | 2024-03-08 17:56 | DVHPNRES ---
Progress Note Date Seen: Mar 08, 2024 Resident Creating Document: RIAZ KIDD RESIDENT Has the PT tested + for MRSA If YES, has PT been informed?: No Medical Necessity Reason Pt with a Central, PICC or Fol: Yes The following are medically ne: Central Line, Roblero Catheter Reason for roblero catheter: Strict I&O Subjective Review of Systems Patient is 78-year-old male with unknown medical history of brought to the hospital via EMS for hypertension and found to be outside at convenience store . During further evaluation emergency department, patient was diagnosed with acute stroke due to ischemia and pneumonia. Later patient was intubated on put on ventilator for worsening respiratory distress, protect of airway with diagnosis of acute stroke, pneumonia and CHF exacerbation. Past medical history: Unknown Past surgical history: Unknown Patient seen and examined in ICU. Patient is currently on ventilator. Waiting for PEG tube placement to transfer patient to LTAC. Objective vital signs Vital Sign Date Time Temp Pulse Resp B/P (MAP) Pulse Ox O2 Delivery O2 Flow Rate FiO2 03/08/24 17:33 45 03/08/24 17:33 26 96 Mechanical Ventilator+ 03/08/24 17:33 76 03/08/24 16:09 123/57 (79) 03/08/24 15:30 98.3 98.3 03/08/24 09:50 45 Total Intake and Output 03/07/24 03/07/24 03/08/24 15:00 23:00 07:00 Intake Total 360.942 ml 436.338 ml 812.898 ml Output Total 10 ml 15 ml Balance 360.942 ml 426.338 ml 797.898 ml medications Current Medications Medications Dose Ordered Sig/Theodora Route Start Time Stop Time Status Last Admin Dose Admin Midazolam HCl 50 ml @ 1 mls/hr Q24H IV 02/11/24 09:15 02/20/24 17:30 1 MLS/HR Sodium Chloride 10 ml Q8HR IV 02/11/24 14:00 03/08/24 14:15 10 ML Atorvastatin Calcium 40 mg HS PO 02/12/24 22:00 03/07/24 21:42 40 MG Pantoprazole Sodium 40 mg DAILY IV 02/13/24 10:00 03/08/24 08:28 40 MG Enteral Nutritional Formula 1,000 ml 45ML/HR GT 02/16/24 12:45 03/03/24 03:31 1,000 ML Acetylcysteine 200 mg Q8HR NEB 02/18/24 22:00 03/08/24 13:22 200 MG Albuterol 2.5 mg Q8HR NEB 02/18/24 22:00 03/08/24 13:21 2.5 MG Diagnostic Test (Pha) 1 strip Q6HR 02/20/24 12:00 03/08/24 12:00 1 STRIP Insulin Human Regular Q6HR SC 02/20/24 12:00 03/05/24 12:38 2 UNITS Dextrose 50 ml UD PRN IV 02/20/24 08:45 Artificial Tears 1 drop Q4HR EACHEYE 02/24/24 16:00 03/08/24 16:39 1 DROP Aspirin 81 mg DAILY PO 02/25/24 10:00 03/07/24 08:10 81 MG Norepinephrine Bitartrate 250 ml @ 0.938 mls/ hr Q24H IV 02/25/24 16:45 03/08/24 05:17 15 MLS/HR Enteral Nutritional Formula 27.5 gm BIDWM GT 02/28/24 18:00 03/07/24 07:40 27.5 GM Heparin Sodium (Porcine) 5,000 units Q12HR SC 03/01/24 22:00 03/07/24 21:43 5,000 UNITS Metoclopramide HCl 10 mg Q8HR IV 03/05/24 14:00 03/07/24 05:29 10 MG Fentanyl Citrate 250 ml @ 2.5 mls/hr Q24H IV 03/05/24 22:45 03/08/24 10:40 17.5 MLS/HR Propofol 100 ml @ 3.39 mls/hr Q24H IV 03/06/24 22:15 03/08/24 10:37 23.73 MLS/HR Zirconium Oxide 10 gm Q8HR PO 03/07/24 10:00 03/09/24 22:00 03/08/24 14:00 10 GM Vancomycin HCl 0 ml @ 0 mls/hr UD IV 03/08/24 13:30 Fluconazole 100 ml @ 100 mls/hr DAILY IV 03/09/24 10:00 Enteral Nutritional Formula 1,000 ml 30ML/HR GT 03/08/24 17:30 Examination General: RASS -3, afebrile, mucosae are moist Cardiovascular: Normal S1 and S2. No murmurs, gallops or rubs Respiratory: Mechanically assisted ventilation, equal bilateral airway entree. Abdomen: Soft, nontender, no organomegaly, normal bowel sounds MSK/skin: Mobilization of limbs cannot be evaluated. Neurological: Orientation cannot be assessed. No apparent motor no sensitive deficits. Pupils are isocoric and reactive. laboratory and microbiology Laboratory Tests 03/08/24 05:02 Test 03/08/24 05:02 Range/Units Serum Glucose 114 H 74-106 mg/dL Microbiology Date/Time Source Procedure Growth Status 03/05/24 10:40 Bronchial Washings Gram Stain - Final Complete 03/05/24 10:40 Respiratory Culture - Final Methicillin Resistant S.aureus Complete 02/14/24 12:04 Urine - Roblero Port Urine Culture - Final Complete 02/12/24 13:30 Blood Blood Culture - Final NO GROWTH AFTER 5 DAYS OF INCUBATION. Complete 02/11/24 13:06 Nose MRSA Screen - Final Complete Problem List/Assessment/Plan Problem List/Assessment/Plan NEUROLOGY : # Altered mental status Due to Hypoxic encephalopathy/ Metabolic encephalopathy # Stroke per the 1st CT, not confirmed by the 2nd CT head on 02/15/2024 - Patient is sedated -When stable: MRI of brain an -Continue Aspirin -continue Lipitor CARDIOVASCULAR : # Hypertension emergency - now patient is hypotensive - on vasopressor Levophed: Target map greater than 65. - hold lisinopril for now # Acute diastolic CHF - continue diuretics # Left ICA moderate stenosis: - Carotid Doppler shows 50-69% stenosis left paroxysmal ICA # Infrarenal aortic aneurysm:5.8 x 6.0 cm. - no intervention for now RESPIRATORY : # Acute hypoxic respiratory failure secondary to pneumonia and CHF exacerbation # Acute respiratory distress syndrome # Septic shock due to pneumonia # Left lower lobe pneumonia Gram-positive/Gram-negative # pneumonia due to MRSA # Emphysema # Pulmonary edema - continue vancomycin -on ventilator: Patient has tracheostomy on 03/01/24, FiO2 45 %, peep 10. GASTROINTESTINAL : # Fatty liver -monitor liver function #Constipation - rectal tube placement GENITOURINARY : # Prostatomegaly: -on Roblero catheter # ESRD - nephrology consultation: Patient is on dialysis. INFECTIOUS DISEASE : # Cellulitis in the legs -continue antibiotics ENDOCRINE : # diabetes mellitus type 2 -hemoglobin A1c: 7.8 - continue sliding scale insulin - Monitor blood glucose level Skin: # Generalized skin rash the possible fungal infection - started fluconazole HEMATOLOGY : -leukocytosis due to pneumonia Metabolic: # Hyperkalemia - patient is on dialysis # obesity - dietary consult NUTRITION : -Glucerna PROPHYLAXIS FOR PUD : Protonix 40 mg DVT PROPHYLAXIS : No anticoagulation for now as patient has bleeding Drips Fentanyl 175 Propofol 30 NE 6 Lines: Roblero catheter Endotracheal tube Rt Femoral central line Waiting for PEG tube placement to transfer patient to LTAC. Critical Care time spent 68 minutes including patient care, chart review and updating family, excluding procedure. Plan discussed with Dr. Cormier Plan discussed with: Other (RN) My Orders My Orders Orders - RIAZ KIDD Procedure Category Date Status Time * Gi [facility] Medical Nurse CONS 03/08/24 Transmitted 09:16 Brain Head Wo Contrast MRI 03/08/24 Logged 14:14 Dietary Evaluation Review Comments: 1) Recommend CCHO-60, Cardiac 2gNa LoFat LoCholesterol diet when medically feasible. 2) If GI accessible but PO feeding is not an option, consider glucerna 1.2 @45ml/hr. In 24 hrs, pt will be receiving 65g protein and 1296 kcal.Adj and increase infusion rate as tolerated. 3) If NPO > 7 days and GI is not accesible, consider TPN to support 75% of her energy and protein needs. Expected Outcomes/Goals: Gradual weight loss, improved glucose Date of Service: Mar 08, 2024 Billing Provider: BELÉN CORMIER MD Common Visit Codes: 73606-ASMSRDXD CARE 30-74 MIN RIAZ KIDD RESIDENT Mar 08, 2024 17:56 BELÉN CORMIER MD Mar 10, 2024 14:22
[2024-03-08] MEDS: FLUCONAZOLE 200MG/100ML 100 ML IV ONE (19:05)
[2024-03-08] MEDS: HEPARIN 1,000 UNITS/ml 1ML VIAL IV ONE (23:26)
[2024-03-09] VITALS (117 sets, daily range): BP systolic 82–135; BP diastolic 41–69; PULSE 75–102; RESP 19–27; TEMP 98.3–100.1; O2SAT 92–100
[2024-03-09 03:39] LABS: Hematocrit 35.9 % (41.0-53.0); Hemoglobin 11.6 g/dL (13.5-17.5); Mean Corpuscular Hemoglobin 29.2 pg (28.0-32.0); Mean Corpuscular Hgb Conc. 32.4 g/dL (32.0-36.0); Mean Corpuscular Volume 90.1 fL (80.0-100.0); Platelet Count (auto) 267 10^3/uL (140-450); Red Blood Cells 3.98 10^6/uL (4.5-5.90); White Blood Cell 16.4 10^3/uL (4.4-10.8)
[2024-03-09 03:43] LABS: Band Neutrophils % (manual) 0; Basophils % (manual) 0 (0.0-2.0); Blast Cells 0; Promyelocytes % 0; Reactive Lymphocytes 0
[2024-03-09 03:57] LABS: Chloride 93 mmol/L (98-107); Potassium 4.4 mmol/L (3.5-5.1); Sodium 135 mmol/L (136-145)
[2024-03-09 03:58] LABS: Anion Gap 26 (5-15); Carbon Dioxide 16 mmol/L (20-31)
[2024-03-09 03:59] LABS: Calcium 8.7 mg/dL (8.7-10.4)
[2024-03-09 04:03] LABS: Glucose 106 mg/dL (74-106)
[2024-03-09 04:04] LABS: BUN/Creatinine Ratio 12.3 (10.0-20.0)
[2024-03-09 04:21] LABS: Blood Urea Nitrogen 69 mg/dL (9-23)
--- NOTE | 2024-03-09 04:57 | DVH ---
CHEST RADIOGRAPH Indication: intubated Technique: Single frontal view of the chest was obtained COMPARISON: XY CHEST XRAY 1 VIEW on DOS: 03/08/24, XY CHEST PORTABLE on DOS: 03/07/24, XY CHEST XRAY 1 VIEW on DOS: 03/06/24, XY CHEST XRAY 1 VIEW on DOS: 03/08/24 FINDINGS: Lines and Tubes: Tracheostomy , right central venous catheter and enteric catheter in satisfactory po sition. Lungs: Multifocal airspace disease. Pleura: No effusion. No pneumothorax. Cardiomediastinal contours: Unremarkable Bones: Unremarkable IMPRESSION: Lines and tubes in satisfactory position. No significant interval change.
[2024-03-09 05:34] LABS: Eosinophils % (manual) 8 (0-7); Lymphocytes % (manual) 8 (10.0-50.0); Metamyelocytes % 1; Monocytes % (manual) 10 (0-12); Myelocytes % 2; Platelet Estimate Adequate
[2024-03-09] MEDS: SODIUM CHL 0.9% 1000 ML BAG XX ONE (07:00)
[2024-03-09 07:23] LABS: Base Excess -8.4 mmol/L (-2.0-3.0)
[2024-03-09] MEDS: LIDOCAINE 1% (LOCAL ANESTH.) PF 5ml SDV ID ONE (09:42)
--- NOTE | 2024-03-09 10:32 | DVHPN2 ---
Progress Note - Dictate Date Seen: Mar 09, 2024 Has the PT tested + for MRSA If YES, has PT been informed?: No Medical Necessity Reason Pt with a Central, PICC or Fol: Yes The following are medically ne: Central Line, Roblero Catheter Reason for roblero catheter: Strict I&O Subjective Mr. Glass is a 78 years old gentleman with a history of obesity, the patient was taken to the [facility] on 02/11/2024 with a chief company of elevated blood pressure. I have seen and examined the patient, I have discussed with his nurse and other medical staff PICC insertion today UDS, 02/11/2024: Negative Plasma alcohol, 02/11/2024: 3.4 Urinalysis, 02/11/2024: Unremarkable ABG, 02/11/2024: Respiratory acidosis CBC, 02/11/2024: Unremarkable BMP 02/11/2024: Unremarkable HCO3, 02/11/2024: 29, 02/12/2024, 33 Liver function tests, 02/12/2024: Normal HbA1c, 02/11/2024: 7.8 TG/Chol/LDL/LDL/HDL, 02/11/2024: 190/171/109/42 TSH, 02/11/2024: 4.29 EEG, 02/12/2024: Moderately abnormal EEG Carotid Doppler, 02/11/2024: Normal left ventricular size and dimension. Normal left ventricular systolic function estimated ejection fraction 60%. There is a grade 1 diastolic dysfunction. Normal right ventricular size and dimension. Normal right ventricular systolic function. Normal biatrial size and dimension. The aortic valve is thickened and sclerotic there is [id number] aortic valve stenosis with a peak gradient of33 and mean gradient of 18 mm of mercury. The mitral valve is mildly thickened there is mild mitral valve regurgitation. There is mild tricuspid valve regurgitation. The pulmonary valve is grossly normal. No pericardial effusion. Carotid Doppler, 02/11/2024: 1. 50-69% stenosis at the level of the left proximal ICA. 2. No hemodynamically significant stenosis noted in the right carotid system. Chest x-ray, 02/11/2024: Lines and tubes in appropriate position. Cardiomegaly with small left pleural effusion and diffuse interstitial opacities which may reflect pulmonary edema CT head, 02/11/2024: 1. Well-defined hypodensity of approximate size 10 x 8 mm in the simon on the left side, concerning for acute infarct. 2. Chronic periventricular ischemic changes. 3. Cerebral and cerebellar atrophy, likely age-related. 4. Chronic and / or ancillary findings as described above. 5. Advised further evaluation with MRI brain without contrast. CT head, 02/15/2024: 1. No acute intracranial process. 2. Moderate acute pansinusitis. vital signs Vital Sign Date Time Temp Pulse Resp B/P (MAP) Pulse Ox O2 Delivery O2 Flow Rate FiO2 03/09/24 09:14 75 26 100/50 (67) 94 45 03/09/24 06:00 Mechanical Ventilator+ 03/09/24 04:03 98.5 98.5 03/08/24 09:50 45 Total Intake and Output 03/08/24 03/08/24 03/09/24 15:00 23:00 07:00 Intake Total 490.730 ml 836.09 ml 651.282 ml Output Total 25 ml 35 ml Balance 490.730 ml 811.09 ml 616.282 ml medications Current Medications Medications Dose Ordered Sig/Theodora Route Start Time Stop Time Status Last Admin Dose Admin Midazolam HCl 50 ml @ 1 mls/hr Q24H IV 02/11/24 09:15 02/20/24 17:30 1 MLS/HR Sodium Chloride 10 ml Q8HR IV 02/11/24 14:00 03/09/24 05:30 10 ML Atorvastatin Calcium 40 mg HS PO 02/12/24 22:00 03/08/24 21:34 40 MG Pantoprazole Sodium 40 mg DAILY IV 02/13/24 10:00 03/08/24 08:28 40 MG Enteral Nutritional Formula 1,000 ml 45ML/HR GT 02/16/24 12:45 03/03/24 03:31 1,000 ML Acetylcysteine 200 mg Q8HR NEB 02/18/24 22:00 03/09/24 05:59 200 MG Albuterol 2.5 mg Q8HR NEB 02/18/24 22:00 03/09/24 05:59 2.5 MG Diagnostic Test (Pha) 1 strip Q6HR 02/20/24 12:00 03/09/24 05:30 1 STRIP Insulin Human Regular Q6HR SC 02/20/24 12:00 03/05/24 12:38 2 UNITS Dextrose 50 ml UD PRN IV 02/20/24 08:45 Artificial Tears 1 drop Q4HR EACHEYE 02/24/24 16:00 03/09/24 05:30 1 DROP Aspirin 81 mg DAILY PO 02/25/24 10:00 03/07/24 08:10 81 MG Norepinephrine Bitartrate 250 ml @ 0.938 mls/ hr Q24H IV 02/25/24 16:45 03/09/24 05:19 35.625 MLS/HR Enteral Nutritional Formula 27.5 gm BIDWM GT 02/28/24 18:00 03/07/24 07:40 27.5 GM Heparin Sodium (Porcine) 5,000 units Q12HR SC 03/01/24 22:00 03/08/24 21:35 5,000 UNITS Metoclopramide HCl 10 mg Q8HR IV 03/05/24 14:00 03/09/24 05:30 10 MG Fentanyl Citrate 250 ml @ 2.5 mls/hr Q24H IV 03/05/24 22:45 03/09/24 00:20 17.5 MLS/HR Propofol 100 ml @ 3.39 mls/hr Q24H IV 03/06/24 22:15 03/09/24 08:18 23.73 MLS/HR Zirconium Oxide 10 gm Q8HR PO 03/07/24 10:00 03/09/24 22:00 03/09/24 05:30 10 GM Vancomycin HCl 0 ml @ 0 mls/hr UD IV 03/08/24 13:30 Fluconazole 100 ml @ 100 mls/hr DAILY IV 03/09/24 10:00 Enteral Nutritional Formula 1,000 ml 30ML/HR GT 03/08/24 17:30 Sodium Chloride 10 ml QSHIFT@10,22 IV 03/09/24 22:00 UNV objective The patient is well-nourished and well-developed with no distress. The patient is intubated MENTAL STATUS: Subjective CRANIAL NERVES: Pupils are equal, round and slightly reactive, 1-2mm. There are corneal reflexes and doll's eyes phenomenon. No signs of facial weakness. There are gagging or coughing reflexes SENSATION: No responses to pain stimuli. MOTOR: Normal tone in the upper and lower extremity. Normal muscle bulk. No fasciculations. No spontaneous movement. REFLEXES: Deep tendon reflexes are symmetrical. No pathological reflexes. CEREBELLAR/COORDINATION: Deferred GAIT/STATION: deferred. laboratory and microbiology Laboratory Tests 03/09/24 03:30 Test 03/09/24 03:30 Range/Units Serum Glucose 106 74-106 mg/dL Problem List Altered mental status Hypoxic encephalopathy Metabolic encephalopathy Respiratory failure Hypertension emergency Respiratory acidosis Sepsis, ? Septic shock Pneumonia Cellulitis in the legs Stroke per the 1st CT, not confirmed by the 2nd CT head on 02/15/2024 Left ICA moderate stenosis Assessment/Plan Monitoring Supportive treatments ICU care Consider MRI brain scan later Stabilize vitals Respiratory support/vent management IV antibiotics Aspirin 81 mg daily Lipitor 40 mg daily DVT prophylaxis Pulmonology evaluation Cardiology evaluation Social service on case More recommendation per clinical course This medical document was created using an electronic medical record system with [employer] dictation system. Although this document has been carefully reviewed, there may still be some phonetic and typographical errors. These areas are purely typographical due to imperfections of the software programs, and do not reflect any compromise in the patient's medical care. Prognosis poor Dietary Evaluation Review Comments: 1) Recommend CCHO-60, Cardiac 2gNa LoFat LoCholesterol diet when medically feasible. 2) If GI accessible but PO feeding is not an option, consider glucerna 1.2 @45ml/hr. In 24 hrs, pt will be receiving 65g protein and 1296 kcal.Adj and increase infusion rate as tolerated. 3) If NPO > 7 days and GI is not accesible, consider TPN to support 75% of her energy and protein needs. Expected Outcomes/Goals: Gradual weight loss, improved glucose Plan discussed with: Other TRAV CRUZ MD Mar 09, 2024 10:32
[2024-03-09] MEDS: FLUCONAZOLE 200MG/100ML 100 ML IV SCH (10:49)
[2024-03-09] MEDS: ALBUMIN 25% 100 ML IV SCH (13:00)
--- NOTE | 2024-03-09 13:36 | DVHPN2 ---
Progress Note - Dictate Date Seen: Mar 09, 2024 Has the PT tested + for MRSA If YES, has PT been informed?: No Medical Necessity Reason Pt with a Central, PICC or Fol: Yes The following are medically ne: Central Line, Roblero Catheter Reason for roblero catheter: Strict I&O Subjective poor Hd catheter function yesterday HD resumed again today vital signs Vital Sign Date Time Temp Pulse Resp B/P (MAP) Pulse Ox O2 Delivery O2 Flow Rate FiO2 03/09/24 13:08 97/48 03/09/24 11:48 87 26 93 03/09/24 11:12 45 03/09/24 06:00 Mechanical Ventilator+ 03/09/24 04:03 98.5 98.5 03/08/24 09:50 45 Total Intake and Output 03/08/24 03/08/24 03/09/24 15:00 23:00 07:00 Intake Total 490.730 ml 836.09 ml 716.852 ml Output Total 25 ml 35 ml Balance 490.730 ml 811.09 ml 681.852 ml medications Current Medications Medications Dose Ordered Sig/Theodora Route Start Time Stop Time Status Last Admin Dose Admin Midazolam HCl 50 ml @ 1 mls/hr Q24H IV 02/11/24 09:15 02/20/24 17:30 1 MLS/HR Sodium Chloride 10 ml Q8HR IV 02/11/24 14:00 03/09/24 05:30 10 ML Atorvastatin Calcium 40 mg HS PO 02/12/24 22:00 03/08/24 21:34 40 MG Pantoprazole Sodium 40 mg DAILY IV 02/13/24 10:00 03/09/24 10:45 40 MG Enteral Nutritional Formula 1,000 ml 45ML/HR GT 02/16/24 12:45 03/03/24 03:31 1,000 ML Acetylcysteine 200 mg Q8HR NEB 02/18/24 22:00 03/09/24 13:25 200 MG Albuterol 2.5 mg Q8HR NEB 02/18/24 22:00 03/09/24 13:25 2.5 MG Diagnostic Test (Pha) 1 strip Q6HR 02/20/24 12:00 03/09/24 11:45 1 STRIP Insulin Human Regular Q6HR SC 02/20/24 12:00 03/05/24 12:38 2 UNITS Dextrose 50 ml UD PRN IV 02/20/24 08:45 Artificial Tears 1 drop Q4HR EACHEYE 02/24/24 16:00 03/09/24 10:49 1 DROP Aspirin 81 mg DAILY PO 02/25/24 10:00 03/07/24 08:10 81 MG Norepinephrine Bitartrate 250 ml @ 0.938 mls/ hr Q24H IV 02/25/24 16:45 03/09/24 05:19 35.625 MLS/HR Enteral Nutritional Formula 27.5 gm BIDWM GT 02/28/24 18:00 03/07/24 07:40 27.5 GM Heparin Sodium (Porcine) 5,000 units Q12HR SC 03/01/24 22:00 03/08/24 21:35 5,000 UNITS Metoclopramide HCl 10 mg Q8HR IV 03/05/24 14:00 03/09/24 05:30 10 MG Fentanyl Citrate 250 ml @ 2.5 mls/hr Q24H IV 03/05/24 22:45 03/09/24 00:20 17.5 MLS/HR Propofol 100 ml @ 3.39 mls/hr Q24H IV 03/06/24 22:15 03/09/24 08:18 23.73 MLS/HR Zirconium Oxide 10 gm Q8HR PO 03/07/24 10:00 03/09/24 22:00 03/09/24 05:30 10 GM Vancomycin HCl 0 ml @ 0 mls/hr UD IV 03/08/24 13:30 Fluconazole 100 ml @ 100 mls/hr DAILY IV 03/09/24 10:00 03/09/24 10:49 100 MLS/HR Enteral Nutritional Formula 1,000 ml 30ML/HR GT 03/08/24 17:30 Sodium Chloride 10 ml QSHIFT@10,22 IV 03/09/24 22:00 Albumin Human 100 ml @ 100 mls/hr Q1HR IV 03/09/24 13:00 03/09/24 14:59 objective obese male intubated b/l bruising diffuse rash anasarca improved roblero laboratory and microbiology Laboratory Tests 03/09/24 03:30 Test 03/09/24 03:30 Range/Units Serum Glucose 106 74-106 mg/dL Assessment/Plan Acute kidney injury due to prerenal + hypotension + vancotoxicity no previous ckd acute respiratory failure septic shock due to PNA hypervolemic hyperkalemia on inpatient HD HD ordered for today change diet to low K lokelma pressors to keep MAP > 65 I/O Critically ill prognosis is poor Dietary Evaluation Review Comments: 1) Recommend CCHO-60, Cardiac 2gNa LoFat LoCholesterol diet when medically feasible. 2) If GI accessible but PO feeding is not an option, consider glucerna 1.2 @45ml/hr. In 24 hrs, pt will be receiving 65g protein and 1296 kcal.Adj and increase infusion rate as tolerated. 3) If NPO > 7 days and GI is not accesible, consider TPN to support 75% of her energy and protein needs. Expected Outcomes/Goals: Gradual weight loss, improved glucose Plan discussed with: Other LETY LAM MD Mar 09, 2024 13:36
[2024-03-09] MEDS ORDERED: fentaNYL Drip 2500mCg/250mlNS 250 ML IV ONE (13:45)
[2024-03-09] MEDS: fentaNYL Drip 2500mCg/250mlNS 250 ML IV ONE (13:45)
[2024-03-09] MEDS: MEROPENEM 1GM IVPB 50 ML IV ONE (16:12)
--- NOTE | 2024-03-09 16:23 | DVHPNRES ---
Progress Note Date Seen: Mar 09, 2024 Resident Creating Document: RIAZ KIDD RESIDENT Has the PT tested + for MRSA If YES, has PT been informed?: No Medical Necessity Reason Pt with a Central, PICC or Fol: Yes The following are medically ne: Central Line, Roblero Catheter Reason for roblero catheter: Strict I&O Subjective Review of Systems Patient is 78-year-old male with unknown medical history of brought to the hospital via EMS for hypertension and found to be outside at convenience store . During further evaluation emergency department, patient was diagnosed with acute stroke due to ischemia and pneumonia. Later patient was intubated on put on ventilator for worsening respiratory distress, protect of airway with diagnosis of acute stroke, pneumonia and CHF exacerbation. Past medical history: Unknown Past surgical history: Unknown Patient seen and examined in ICU. Patient is currently on ventilator. Waiting for PEG tube placement to transfer patient to LTAC. Objective vital signs Vital Sign Date Time Temp Pulse Resp B/P (MAP) Pulse Ox O2 Delivery O2 Flow Rate FiO2 03/09/24 14:15 99 03/09/24 14:15 27 103/46 (65) 96 03/09/24 14:15 Mechanical Ventilator+ 45 45 03/09/24 12:00 99.6 99.6 03/09/24 10:15 45 Total Intake and Output 03/08/24 03/08/24 03/09/24 15:00 23:00 07:00 Intake Total 490.730 ml 836.09 ml 716.852 ml Output Total 25 ml 35 ml Balance 490.730 ml 811.09 ml 681.852 ml medications Current Medications Medications Dose Ordered Sig/Theodora Route Start Time Stop Time Status Last Admin Dose Admin Midazolam HCl 50 ml @ 1 mls/hr Q24H IV 02/11/24 09:15 02/20/24 17:30 1 MLS/HR Sodium Chloride 10 ml Q8HR IV 02/11/24 14:00 03/09/24 13:32 10 ML Atorvastatin Calcium 40 mg HS PO 02/12/24 22:00 03/08/24 21:34 40 MG Pantoprazole Sodium 40 mg DAILY IV 02/13/24 10:00 03/09/24 10:45 40 MG Enteral Nutritional Formula 1,000 ml 45ML/HR GT 02/16/24 12:45 03/03/24 03:31 1,000 ML Acetylcysteine 200 mg Q8HR NEB 02/18/24 22:00 03/09/24 13:25 200 MG Albuterol 2.5 mg Q8HR NEB 02/18/24 22:00 03/09/24 13:25 2.5 MG Diagnostic Test (Pha) 1 strip Q6HR 02/20/24 12:00 03/09/24 11:45 1 STRIP Insulin Human Regular Q6HR SC 02/20/24 12:00 03/05/24 12:38 2 UNITS Dextrose 50 ml UD PRN IV 02/20/24 08:45 Artificial Tears 1 drop Q4HR EACHEYE 02/24/24 16:00 03/09/24 13:30 1 DROP Aspirin 81 mg DAILY PO 02/25/24 10:00 03/07/24 08:10 81 MG Norepinephrine Bitartrate 250 ml @ 0.938 mls/ hr Q24H IV 02/25/24 16:45 03/09/24 05:19 35.625 MLS/HR Enteral Nutritional Formula 27.5 gm BIDWM GT 02/28/24 18:00 03/07/24 07:40 27.5 GM Heparin Sodium (Porcine) 5,000 units Q12HR SC 03/01/24 22:00 03/08/24 21:35 5,000 UNITS Metoclopramide HCl 10 mg Q8HR IV 03/05/24 14:00 03/09/24 13:32 10 MG Fentanyl Citrate 250 ml @ 2.5 mls/hr Q24H IV 03/05/24 22:45 03/09/24 13:28 17.5 MLS/HR Propofol 100 ml @ 3.39 mls/hr Q24H IV 03/06/24 22:15 03/09/24 08:18 23.73 MLS/HR Zirconium Oxide 10 gm Q8HR PO 03/07/24 10:00 03/09/24 22:00 03/09/24 05:30 10 GM Vancomycin HCl 0 ml @ 0 mls/hr UD IV 03/08/24 13:30 Fluconazole 100 ml @ 100 mls/hr DAILY IV 03/09/24 10:00 03/09/24 10:49 100 MLS/HR Enteral Nutritional Formula 1,000 ml 30ML/HR GT 03/08/24 17:30 Sodium Chloride 10 ml QSHIFT@10,22 IV 03/09/24 22:00 Meropenem 50 ml @ 17 mls/hr Q12HR IV 03/09/24 22:00 UNV Examination General: RASS -3, afebrile, mucosae are moist Cardiovascular: Normal S1 and S2. No murmurs, gallops or rubs Respiratory: Mechanically assisted ventilation, equal bilateral airway entree. Abdomen: Soft, nontender, no organomegaly, normal bowel sounds MSK/skin: Mobilization of limbs cannot be evaluated. Neurological: Orientation cannot be assessed. No apparent motor no sensitive deficits. Pupils are isocoric and reactive. laboratory and microbiology Laboratory Tests 03/09/24 03:30 Test 03/09/24 03:30 Range/Units Serum Glucose 106 74-106 mg/dL Microbiology Date/Time Source Procedure Growth Status 03/08/24 14:42 Blood Blood Culture - Preliminary NO GROWTH AFTER 24 HOURS OF INCUBATION. Resulted 03/05/24 10:40 Bronchial Washings Gram Stain - Final Complete 03/05/24 10:40 Respiratory Culture - Final Methicillin Resistant S.aureus Complete 02/14/24 12:04 Urine - Roblero Port Urine Culture - Final Complete 02/11/24 13:06 Nose MRSA Screen - Final Complete Problem List/Assessment/Plan Problem List/Assessment/Plan NEUROLOGY : # Altered mental status Due to Hypoxic encephalopathy/ Metabolic encephalopathy # Stroke per the 1st CT, not confirmed by the 2nd CT head on 02/15/2024 - Patient is sedated -When stable: MRI of brain an -Continue Aspirin -continue Lipitor CARDIOVASCULAR : # Hypertension emergency - now patient is hypotensive - on vasopressor Levophed: Target map greater than 65. - hold lisinopril for now # Acute diastolic CHF - continue diuretics # Left ICA moderate stenosis: - Carotid Doppler shows 50-69% stenosis left paroxysmal ICA # Infrarenal aortic aneurysm:5.8 x 6.0 cm. - no intervention for now RESPIRATORY : # Acute hypoxic respiratory failure secondary to pneumonia and CHF exacerbation # Acute respiratory distress syndrome # Septic shock due to pneumonia # Left lower lobe pneumonia Gram-positive/Gram-negative # pneumonia due to MRSA # Emphysema # Pulmonary edema - continue vancomycin -started meropenem today -on ventilator: Patient has tracheostomy on 03/01/24, FiO2 45 %, peep 10. GASTROINTESTINAL : # Fatty liver -monitor liver function #Constipation - rectal tube placement GENITOURINARY : # Prostatomegaly: -on Roblero catheter # ESRD - nephrology consultation: Patient is on dialysis. INFECTIOUS DISEASE : # Cellulitis in the legs -continue antibiotics ENDOCRINE : # diabetes mellitus type 2 -hemoglobin A1c: 7.8 - continue sliding scale insulin - Monitor blood glucose level Skin: # Generalized skin rash the possible fungal infection - started fluconazole HEMATOLOGY : -leukocytosis due to pneumonia Metabolic: # Hyperkalemia - patient is on dialysis # obesity - dietary consult NUTRITION : -Glucerna PROPHYLAXIS FOR PUD : Protonix 40 mg DVT PROPHYLAXIS : No anticoagulation for now as patient has bleeding Drips Fentanyl 175 Propofol 35 NE 28 Lines: Roblero catheter Endotracheal tube PICC line: 03/09/2024 Waiting for PEG tube placement to transfer patient to LTAC. Critical Care time spent 82 minutes including patient care, chart review and updating family, excluding procedure. Plan discussed with Dr. Cormier Plan discussed with: Other (RN) My Orders My Orders Orders - RIAZ KIDD RESIDENT Procedure Category Date Status Time Abg W/ Co-Ox RT 03/09/24 Logged 04:00 Chest Xray 1 View XY 03/09/24 Resulted 04:00 Brain Head Wo Contrast MRI 03/09/24 Logged 14:12 Dietary Evaluation Review Comments: 1) Recommend CCHO-60, Cardiac 2gNa LoFat LoCholesterol diet when medically feasible. 2) If GI accessible but PO feeding is not an option, consider glucerna 1.2 @45ml/hr. In 24 hrs, pt will be receiving 65g protein and 1296 kcal.Adj and increase infusion rate as tolerated. 3) If NPO > 7 days and GI is not accesible, consider TPN to support 75% of her energy and protein needs. Expected Outcomes/Goals: Gradual weight loss, improved glucose Date of Service: Mar 09, 2024 Billing Provider: BELÉN CORMIER MD Common Visit Codes: 94776-[id number] CARE 30-74 MIN, 85297-[id number] CARE-EACH +30MIN RIAZ KIDD Mar 09, 2024 16:23 BELÉN CORMIER MD Mar 10, 2024 12:00
[2024-03-09] MEDS: VANCOMYCIN 500mg/100mL 100 ML IV ONE (19:11)
[2024-03-09] MEDS ORDERED: EPOETIN ALFA-EPBX 10,000 UNIT/1ML VIAL SC ONE (21:00)
[2024-03-09] MEDS: MEROPENEM 500MG PREMIX 50 ML IV SCH (21:43)
[2024-03-09] MEDS: SODIUM CHLOR 0.9% PF (SALINE LOCK) 10ML VIAL/SYR IV SCH (21:44)
[2024-03-09] MEDS ORDERED: MEROPENEM 1GM IVPB 50 ML IV SCH (22:00)
[2024-03-10] VITALS (119 sets, daily range): BP systolic 83–134; BP diastolic 42–60; PULSE 75–95; RESP 21–29; TEMP 98.1–99.5; O2SAT 90–99
[2024-03-10 04:13] LABS: Basophils # (auto) 0.1 10 ^3/uL (0-0.2); Basophils % (auto) 0.6 % (0.0-2.0); Eosinophils # (auto) 1.2 10 ^3/uL (0-0.8); Eosinophils % (auto) 6.1 % (0.0-7.0); Hematocrit 33.9 % (41.0-53.0); Hemoglobin 11.2 g/dL (13.5-17.5); Lymphocytes # (auto) 0.9 10 ^3/uL (0.4-5.4); Lymphocytes % (auto) 4.5 % (10.0-50.0); Mean Corpuscular Hemoglobin 29.5 pg (28.0-32.0); Mean Corpuscular Hgb Conc. 33.1 g/dL (32.0-36.0); Monocytes # (auto) 1.4 10 ^3/uL (0-1.3); Monocytes % (auto) 7.5 % (0.0-12.0); Neutrophils # (auto) 15.6 10 ^3/uL (1.6-8.6); Neutrophils % (auto) 81.3 % (37.0-80.0); Nucleated Red Blood Cells % 0.1 %; Platelet Count (auto) 259 10^3/uL (140-450); Red Blood Cells 3.81 10^6/uL (4.5-5.90); Red Cell Distribution Width 15.1 % (11.8-14.3); White Blood Cell 19.2 10^3/uL (4.4-10.8)
[2024-03-10] MEDS: Nepro With Carb Steady 1 Liter Bottle GT SCH (04:16)
[2024-03-10 04:30] LABS: Albumin 3.2 g/dL (3.2-4.8); Anion Gap 22 (5-15); BUN/Creatinine Ratio 12.2 (10.0-20.0); Potassium 3.6 mmol/L (3.5-5.1); Sodium 136 mmol/L (136-145); Total Protein 6.7 g/dL (5.7-8.2)
[2024-03-10 04:34] LABS: Alanine Aminotransferase 79 U/L (7-40); Alkaline Phosphatase 170 U/L (46-116); Aspartate Aminotransferase 67 U/L (13-40); Bilirubin, Total < 0.2 mg/dL (0.2-1.0); Blood Urea Nitrogen 58 mg/dL (9-23); Carbon Dioxide 20 mmol/L (20-31); Chloride 94 mmol/L (98-107); Glucose 173 mg/dL (74-106)
--- NOTE | 2024-03-10 04:41 | DVH ---
CHEST RADIOGRAPH Indication: Intubated Technique: Single frontal view of the chest was obtained Comparison: XY CHEST XRAY 1 VIEW on DOS: 03/09/24 FINDINGS: Lines and Tubes: Right upper extremity PICC terminates in the right atrium. Tracheostomy tube is unc hanged. The enteric tube courses below the left hemidiaphragm and the tip extends outside the field o f view. Lungs: There is pulmonary vascular congestion. Pleura: No effusion. No pneumothorax. Cardiomediastinal contours: Cardiomegaly. Bones: No acute osseous abnormality. IMPRESSION: 1. Stable position of the support lines and tubes. 2. Pulmonary vascular congestion.
[2024-03-10 07:03] LABS: Base Excess -5.4 mmol/L (-2.0-3.0)
--- NOTE | 2024-03-10 08:29 | DVHPNRES ---
Progress Note Date Seen: Mar 10, 2024 Resident Creating Document: RIAZ KIDD RESIDENT Has the PT tested + for MRSA If YES, has PT been informed?: No Medical Necessity Reason Pt with a Central, PICC or Fol: Yes The following are medically ne: Central Line, Roblero Catheter Reason for roblero catheter: Strict I&O Subjective Review of Systems Patient is 78-year-old male with unknown medical history of brought to the hospital via EMS for hypertension and found to be outside at convenience store . During further evaluation emergency department, patient was diagnosed with acute stroke due to ischemia and pneumonia. Later patient was intubated on put on ventilator for worsening respiratory distress, protect of airway with diagnosis of acute stroke, pneumonia and CHF exacerbation. Past medical history: Unknown Past surgical history: Unknown Patient seen and examined in ICU. Patient is currently on ventilator. Patient's a skin rash is worsening. Waiting for PEG tube placement to transfer patient to LTAC. Objective vital signs Vital Sign Date Time Temp Pulse Resp B/P (MAP) Pulse Ox O2 Delivery O2 Flow Rate FiO2 03/10/24 08:09 84 26 102/51 (68) 95 35 03/10/24 06:00 Mechanical Ventilator+ 03/10/24 03:40 99.1 99.1 03/09/24 10:15 45 Total Intake and Output 03/09/24 03/09/24 03/10/24 15:00 23:00 07:00 Intake Total 706.84 ml 1116.048 ml 972.591 ml Output Total 2075 ml 45 ml Balance 706.84 ml -958.952 ml 927.591 ml medications Current Medications Medications Dose Ordered Sig/Theodora Route Start Time Stop Time Status Last Admin Dose Admin Midazolam HCl 50 ml @ 1 mls/hr Q24H IV 02/11/24 09:15 02/20/24 17:30 1 MLS/HR Sodium Chloride 10 ml Q8HR IV 02/11/24 14:00 03/10/24 05:39 10 ML Atorvastatin Calcium 40 mg HS PO 02/12/24 22:00 03/09/24 21:45 40 MG Pantoprazole Sodium 40 mg DAILY IV 02/13/24 10:00 03/09/24 10:45 40 MG Acetylcysteine 200 mg Q8HR NEB 02/18/24 22:00 03/10/24 05:47 200 MG Albuterol 2.5 mg Q8HR NEB 02/18/24 22:00 03/10/24 05:46 2.5 MG Diagnostic Test (Pha) 1 strip Q6HR 02/20/24 12:00 03/10/24 05:39 1 STRIP Insulin Human Regular Q6HR SC 02/20/24 12:00 03/10/24 05:41 3 UNITS Dextrose 50 ml UD PRN IV 02/20/24 08:45 Artificial Tears 1 drop Q4HR EACHEYE 02/24/24 16:00 03/10/24 05:39 1 DROP Aspirin 81 mg DAILY PO 02/25/24 10:00 03/07/24 08:10 81 MG Norepinephrine Bitartrate 250 ml @ 0.938 mls/ hr Q24H IV 02/25/24 16:45 03/10/24 03:14 44.063 MLS/HR Enteral Nutritional Formula 27.5 gm BIDWM GT 02/28/24 18:00 03/07/24 07:40 27.5 GM Heparin Sodium (Porcine) 5,000 units Q12HR SC 03/01/24 22:00 03/09/24 21:40 5,000 UNITS Metoclopramide HCl 10 mg Q8HR IV 03/05/24 14:00 03/10/24 05:38 10 MG Fentanyl Citrate 250 ml @ 2.5 mls/hr Q24H IV 03/05/24 22:45 03/10/24 03:03 17.5 MLS/HR Propofol 100 ml @ 3.39 mls/hr Q24H IV 03/06/24 22:15 03/10/24 03:44 16.95 MLS/HR Vancomycin HCl 0 ml @ 0 mls/hr UD IV 03/08/24 13:30 Fluconazole 100 ml @ 100 mls/hr DAILY IV 03/09/24 10:00 03/09/24 10:49 100 MLS/HR Enteral Nutritional Formula 1,000 ml 30ML/HR GT 03/08/24 17:30 03/10/24 04:16 1,000 ML Sodium Chloride 10 ml QSHIFT@10,22 IV 03/09/24 22:00 03/09/24 21:44 10 ML Meropenem 50 ml @ 17 mls/hr Q12HR IV 03/09/24 22:00 UNV Examination General: RASS -3, afebrile, mucosae are moist Cardiovascular: Normal S1 and S2. No murmurs, gallops or rubs Respiratory: Mechanically assisted ventilation, equal bilateral airway entree. Abdomen: Soft, nontender, no organomegaly, normal bowel sounds MSK/skin: Mobilization of limbs cannot be evaluated. Neurological: Orientation cannot be assessed. No apparent motor no sensitive deficits. Pupils are isocoric and reactive. laboratory and microbiology Laboratory Tests 03/10/24 03:47 Test 03/10/24 03:47 Range/Units Serum Glucose 173 H 74-106 mg/dL Microbiology Date/Time Source Procedure Growth Status 03/08/24 14:42 Blood Blood Culture - Preliminary NO GROWTH AFTER 24 HOURS OF INCUBATION. Resulted 03/05/24 10:40 Bronchial Washings Gram Stain - Final Complete 03/05/24 10:40 Respiratory Culture - Final Methicillin Resistant S.aureus Complete 02/14/24 12:04 Urine - Roblero Port Urine Culture - Final Complete 02/11/24 13:06 Nose MRSA Screen - Final Complete Problem List/Assessment/Plan Problem List/Assessment/Plan NEUROLOGY : # Altered mental status Due to Hypoxic encephalopathy/ Metabolic encephalopathy # Stroke per the 1st CT, not confirmed by the 2nd CT head on 02/15/2024 - Patient is sedated -When stable: MRI of brain an -Continue Aspirin -continue Lipitor CARDIOVASCULAR : # Hypertension emergency - now patient is hypotensive - on vasopressor Levophed: Target map greater than 65. - hold lisinopril for now # Acute diastolic CHF - continue diuretics # Left ICA moderate stenosis: - Carotid Doppler shows 50-69% stenosis left paroxysmal ICA # Infrarenal aortic aneurysm:5.8 x 6.0 cm. - no intervention for now RESPIRATORY : # Acute hypoxic respiratory failure secondary to pneumonia and CHF exacerbation # Acute respiratory distress syndrome # Septic shock due to pneumonia # Left lower lobe pneumonia Gram-positive/Gram-negative # pneumonia due to MRSA # Emphysema # Pulmonary edema - continue vancomycin -started meropenem today -on ventilator: Patient has tracheostomy on 03/01/24, FiO2 35 %, peep 8. GASTROINTESTINAL : # Fatty liver -monitor liver function #Constipation - rectal tube placement GENITOURINARY : # Prostatomegaly: -on Roblero catheter # ESRD - nephrology consultation: Patient is on dialysis. INFECTIOUS DISEASE : # Cellulitis in the legs -continue antibiotics ENDOCRINE : # diabetes mellitus type 2 -hemoglobin A1c: 7.8 - continue sliding scale insulin - Monitor blood glucose level Skin: # Generalized skin rash the possible fungal infection - Continue fluconazole - Start Benadryl HEMATOLOGY : -leukocytosis due to pneumonia Metabolic: # Hyperkalemia - patient is on dialysis # obesity - dietary consult NUTRITION : -Glucerna PROPHYLAXIS FOR PUD : D/C Protonix 40 mg, Start Pepcid DVT PROPHYLAXIS : No anticoagulation for now as patient has bleeding Drips Fentanyl 150 Propofol 25 NE 24 Lines: Roblero catheter Endotracheal tube PICC line: 03/09/2024 Waiting for PEG tube placement to transfer patient to LTAC. Critical Care time spent 61 minutes including patient care, chart review and updating family, excluding procedure. Plan discussed with Dr. Cormier Plan discussed with: Other (RN) My Orders My Orders Orders - RIAZ KIDD Procedure Category Date Status Time Brain Head Wo Contrast MRI 03/09/24 Logged 14:12 Chest Xray 1 View XY 03/10/24 Resulted 04:00 Abg W/ Co-Ox RT 03/10/24 Logged 04:00 Dietary Evaluation Review Comments: 1) Recommend CCHO-60, Cardiac 2gNa LoFat LoCholesterol diet when medically feasible. 2) If GI accessible but PO feeding is not an option, consider glucerna 1.2 @45ml/hr. In 24 hrs, pt will be receiving 65g protein and 1296 kcal.Adj and increase infusion rate as tolerated. 3) If NPO > 7 days and GI is not accesible, consider TPN to support 75% of her energy and protein needs. Expected Outcomes/Goals: Gradual weight loss, improved glucose Date of Service: Mar 10, 2024 Billing Provider: BELÉN CORMIER MD Common Visit Codes: [id number]-[id number] CARE 30-74 MIN, [id number] CARE-EACH +30MIN RIAZ KIDD Mar 10, 2024 08:29 BELÉN CORMIER MD Mar 11, 2024 12:01
--- NOTE | 2024-03-10 10:02 | DVHPN2 ---
Progress Note - Dictate Date Seen: Mar 10, 2024 Has the PT tested + for MRSA If YES, has PT been informed?: No Medical Necessity Reason Pt with a Central, PICC or Fol: Yes The following are medically ne: Central Line, Roblero Catheter Reason for roblero catheter: Strict I&O Subjective Mr. Glass is a 78 years old gentleman with a history of obesity, the patient was taken to the [facility] on 02/11/2024 with a chief company of elevated blood pressure. I have seen and examined the patient, I have discussed with his nurse and other medical staff his status post trach, sedated, possibly responds to strong painful stimuli Fentanyl 150 mcg/hour, propofol 25 mcg/minute, levo 23 mcg/minute UDS, 02/11/2024: Negative Plasma alcohol, 02/11/2024: 3.4 Urinalysis, 02/11/2024: Unremarkable ABG, 02/11/2024: Respiratory acidosis CBC, 02/11/2024: Unremarkable BMP 02/11/2024: Unremarkable HCO3, 02/11/2024: 29, 02/12/2024, 33 Liver function tests, 02/12/2024: Normal HbA1c, 02/11/2024: 7.8 TG/Chol/LDL/LDL/HDL, 02/11/2024: 190/171/109/42 TSH, 02/11/2024: 4.29 EEG, 02/12/2024: Moderately abnormal EEG Carotid Doppler, 02/11/2024: Normal left ventricular size and dimension. Normal left ventricular systolic function estimated ejection fraction 60%. There is a grade 1 diastolic dysfunction. Normal right ventricular size and dimension. Normal right ventricular systolic function. Normal biatrial size and dimension. The aortic valve is thickened and sclerotic there is [id number] aortic valve stenosis with a peak gradient of33 and mean gradient of 18 mm of mercury. The mitral valve is mildly thickened there is mild mitral valve regurgitation. There is mild tricuspid valve regurgitation. The pulmonary valve is grossly normal. No pericardial effusion. Carotid Doppler, 02/11/2024: 1. 50-69% stenosis at the level of the left proximal ICA. 2. No hemodynamically significant stenosis noted in the right carotid system. Chest x-ray, 02/11/2024: Lines and tubes in appropriate position. Cardiomegaly with small left pleural effusion and diffuse interstitial opacities which may reflect pulmonary edema CT head, 02/11/2024: 1. Well-defined hypodensity of approximate size 10 x 8 mm in the simon on the left side, concerning for acute infarct. 2. Chronic periventricular ischemic changes. 3. Cerebral and cerebellar atrophy, likely age-related. 4. Chronic and / or ancillary findings as described above. 5. Advised further evaluation with MRI brain without contrast. CT head, 02/15/2024: 1. No acute intracranial process. 2. Moderate acute pansinusitis. vital signs Vital Sign Date Time Temp Pulse Resp B/P (MAP) Pulse Ox O2 Delivery O2 Flow Rate FiO2 03/10/24 09:42 79 26 118/57 (77) 95 35 03/10/24 08:15 Mechanical Ventilator+ 03/10/24 07:56 98.1 98.1 03/09/24 10:15 45 Total Intake and Output 03/09/24 03/09/24 03/10/24 15:00 23:00 07:00 Intake Total 706.84 ml 1116.048 ml 972.591 ml Output Total 2075 ml 45 ml Balance 706.84 ml -958.952 ml 927.591 ml medications Current Medications Medications Dose Ordered Sig/Theodora Route Start Time Stop Time Status Last Admin Dose Admin Midazolam HCl 50 ml @ 1 mls/hr Q24H IV 02/11/24 09:15 02/20/24 17:30 1 MLS/HR Sodium Chloride 10 ml Q8HR IV 02/11/24 14:00 03/10/24 05:39 10 ML Atorvastatin Calcium 40 mg HS PO 02/12/24 22:00 03/09/24 21:45 40 MG Pantoprazole Sodium 40 mg DAILY IV 02/13/24 10:00 03/09/24 10:45 40 MG Acetylcysteine 200 mg Q8HR NEB 02/18/24 22:00 03/10/24 05:47 200 MG Albuterol 2.5 mg Q8HR NEB 02/18/24 22:00 03/10/24 05:46 2.5 MG Diagnostic Test (Pha) 1 strip Q6HR 02/20/24 12:00 03/10/24 05:39 1 STRIP Insulin Human Regular Q6HR SC 02/20/24 12:00 03/10/24 05:41 3 UNITS Dextrose 50 ml UD PRN IV 02/20/24 08:45 Artificial Tears 1 drop Q4HR EACHEYE 02/24/24 16:00 03/10/24 05:39 1 DROP Aspirin 81 mg DAILY PO 02/25/24 10:00 03/07/24 08:10 81 MG Norepinephrine Bitartrate 250 ml @ 0.938 mls/ hr Q24H IV 02/25/24 16:45 03/10/24 08:38 44.063 MLS/HR Enteral Nutritional Formula 27.5 gm BIDWM GT 02/28/24 18:00 03/07/24 07:40 27.5 GM Heparin Sodium (Porcine) 5,000 units Q12HR SC 03/01/24 22:00 03/09/24 21:40 5,000 UNITS Metoclopramide HCl 10 mg Q8HR IV 03/05/24 14:00 03/10/24 05:38 10 MG Fentanyl Citrate 250 ml @ 2.5 mls/hr Q24H IV 03/05/24 22:45 03/10/24 03:03 17.5 MLS/HR Propofol 100 ml @ 3.39 mls/hr Q24H IV 03/06/24 22:15 03/10/24 08:59 16.95 MLS/HR Vancomycin HCl 0 ml @ 0 mls/hr UD IV 03/08/24 13:30 Fluconazole 100 ml @ 100 mls/hr DAILY IV 03/09/24 10:00 03/09/24 10:49 100 MLS/HR Enteral Nutritional Formula 1,000 ml 30ML/HR GT 03/08/24 17:30 03/10/24 04:16 1,000 ML Sodium Chloride 10 ml QSHIFT@10,22 IV 03/09/24 22:00 03/09/24 21:44 10 ML Meropenem 50 ml @ 17 mls/hr Q12HR IV 03/09/24 22:00 UNV objective The patient is well-nourished and well-developed with no distress. The patient is intubated MENTAL STATUS: Subjective CRANIAL NERVES: Pupils are equal, round and slightly reactive, 2-3mm, the left side is slightly bigger. There was no associated ptosis, abnormal vascular dilatation and skin secretion. There are corneal reflexes and doll's eyes phenomenon. No signs of facial weakness. There are weak gagging or coughing reflexes SENSATION: Subjective MOTOR: Normal tone in the upper and lower extremity. Normal muscle bulk. No fasciculations. No spontaneous movement. REFLEXES: Deep tendon reflexes are symmetrical. No pathological reflexes. CEREBELLAR/COORDINATION: Deferred GAIT/STATION: deferred. laboratory and microbiology Laboratory Tests 03/10/24 03:47 Test 03/10/24 03:47 Range/Units Serum Glucose 173 H 74-106 mg/dL Problem List Altered mental status Hypoxic encephalopathy Metabolic encephalopathy Respiratory failure Hypertension emergency Respiratory acidosis Sepsis, ? Septic shock Pneumonia Cellulitis in the legs Stroke per the 1st CT, not confirmed by the 2nd CT head on 02/15/2024 Left ICA moderate stenosis Anisocoria, unclear clinical significance Assessment/Plan Monitoring Supportive treatments ICU care Consider MRI brain scan later Stabilize vitals Respiratory support/vent management IV antibiotics Aspirin 81 mg daily Lipitor 40 mg daily DVT prophylaxis NG tube feeding Pulmonology on case Cardiology on case Social service on case More recommendation per clinical course This medical document was created using an electronic medical record system with [employer] dictation system. Although this document has been carefully reviewed, there may still be some phonetic and typographical errors. These areas are purely typographical due to imperfections of the software programs, and do not reflect any compromise in the patient's medical care. Prognosis poor Dietary Evaluation Review Comments: 1) Recommend CCHO-60, Cardiac 2gNa LoFat LoCholesterol diet when medically feasible. 2) If GI accessible but PO feeding is not an option, consider glucerna 1.2 @45ml/hr. In 24 hrs, pt will be receiving 65g protein and 1296 kcal.Adj and increase infusion rate as tolerated. 3) If NPO > 7 days and GI is not accesible, consider TPN to support 75% of her energy and protein needs. Expected Outcomes/Goals: Gradual weight loss, improved glucose Plan discussed with: Other TRAV CRUZ MD Mar 10, 2024 10:02
[2024-03-10] MEDS ORDERED: diphenhdrAMINE HCL 50 MG/1 ML VL IV SCH (14:00)
[2024-03-10] MEDS: FAMOTIDINE (10MG/ML) 2ML VL IV ONE (14:40)
[2024-03-10] MEDS: diphenhdrAMINE HCL 50 MG/1 ML VL IV ONE (14:40)
--- NOTE | 2024-03-10 15:09 | DVHPN2 ---
Progress Note - Dictate Date Seen: Mar 10, 2024 Has the PT tested + for MRSA If YES, has PT been informed?: No Medical Necessity Reason Pt with a Central, PICC or Fol: Yes The following are medically ne: Central Line, Roblero Catheter Reason for roblero catheter: Strict I&O Subjective poor Hd catheter function yesterday HD resumed again today vital signs Vital Sign Date Time Temp Pulse Resp B/P (MAP) Pulse Ox O2 Delivery O2 Flow Rate FiO2 03/10/24 14:20 118/51 03/10/24 13:31 77 26 94 35 03/10/24 08:15 Mechanical Ventilator+ 03/10/24 07:56 98.1 98.1 03/09/24 10:15 45 Total Intake and Output 03/09/24 03/09/24 03/10/24 15:00 23:00 07:00 Intake Total 706.84 ml 1116.048 ml 1051.041 ml Output Total 2075 ml 45 ml Balance 706.84 ml -958.952 ml 1006.041 ml medications Current Medications Medications Dose Ordered Sig/Theodora Route Start Time Stop Time Status Last Admin Dose Admin Midazolam HCl 50 ml @ 1 mls/hr Q24H IV 02/11/24 09:15 02/20/24 17:30 1 MLS/HR Sodium Chloride 10 ml Q8HR IV 02/11/24 14:00 03/10/24 14:19 10 ML Albuterol 2.5 mg Q8HR NEB 02/18/24 22:00 03/10/24 13:31 2.5 MG Diagnostic Test (Pha) 1 strip Q6HR 02/20/24 12:00 03/10/24 11:42 1 STRIP Insulin Human Regular Q6HR SC 02/20/24 12:00 03/10/24 11:47 2 UNITS Dextrose 50 ml UD PRN IV 02/20/24 08:45 Artificial Tears 1 drop Q4HR EACHEYE 02/24/24 16:00 03/10/24 14:19 1 DROP Aspirin 81 mg DAILY PO 02/25/24 10:00 03/07/24 08:10 81 MG Norepinephrine Bitartrate 250 ml @ 0.938 mls/ hr Q24H IV 02/25/24 16:45 03/10/24 14:03 44.063 MLS/HR Enteral Nutritional Formula 27.5 gm BIDWM GT 02/28/24 18:00 03/07/24 07:40 27.5 GM Heparin Sodium (Porcine) 5,000 units Q12HR SC 03/01/24 22:00 03/09/24 21:40 5,000 UNITS Metoclopramide HCl 10 mg Q8HR IV 03/05/24 14:00 03/10/24 14:18 10 MG Fentanyl Citrate 250 ml @ 2.5 mls/hr Q24H IV 03/05/24 22:45 03/10/24 03:03 17.5 MLS/HR Propofol 100 ml @ 3.39 mls/hr Q24H IV 03/06/24 22:15 03/10/24 14:20 16.95 MLS/HR Vancomycin HCl 0 ml @ 0 mls/hr UD IV 03/08/24 13:30 Fluconazole 100 ml @ 100 mls/hr DAILY IV 03/09/24 10:00 03/10/24 10:08 100 MLS/HR Enteral Nutritional Formula 1,000 ml 30ML/HR GT 03/08/24 17:30 03/10/24 04:16 1,000 ML Sodium Chloride 10 ml QSHIFT@10,22 IV 03/09/24 22:00 03/10/24 10:09 10 ML Meropenem 50 ml @ 17 mls/hr Q12HR IV 03/09/24 22:00 UNV Famotidine 20 mg Q12HR IV 03/10/24 22:00 Diphenhydramine HCl 25 mg Q8H IV 03/10/24 22:00 objective obese male intubated b/l bruising diffuse rash anasarca improved roblero laboratory and microbiology Laboratory Tests 03/10/24 03:47 Test 03/10/24 03:47 Range/Units Serum Glucose 173 H 74-106 mg/dL Assessment/Plan Acute kidney injury due to prerenal + hypotension + vancotoxicity no previous ckd acute respiratory failure septic shock due to PNA hypervolemic hyperkalemia diffuse rash HD ordered for tomorrow change diet to low K pressors to keep MAP > 65 I/O Critically ill prognosis is poor Dietary Evaluation Review Comments: 1) Recommend CCHO-60, Cardiac 2gNa LoFat LoCholesterol diet when medically feasible. 2) If GI accessible but PO feeding is not an option, consider glucerna 1.2 @45ml/hr. In 24 hrs, pt will be receiving 65g protein and 1296 kcal.Adj and increase infusion rate as tolerated. 3) If NPO > 7 days and GI is not accesible, consider TPN to support 75% of her energy and protein needs. Expected Outcomes/Goals: Gradual weight loss, improved glucose Plan discussed with: Other Critical Care Time(min): 33 LETY LAM MD Mar 10, 2024 15:09
[2024-03-10] MEDS: diphenhdrAMINE HCL 50 MG/1 ML VL IV SCH (21:45)
[2024-03-10] MEDS: FAMOTIDINE (10MG/ML) 2ML VL IV SCH (21:45)
[2024-03-11] VITALS (111 sets, daily range): BP systolic 74–157; BP diastolic 41–74; PULSE 83–116; RESP 17–28; TEMP 98.4–99.9; O2SAT 89–100
[2024-03-11 04:01] LABS: Anion Gap 19 (5-15); Calcium 8.7 mg/dL (8.7-10.4); Chloride 99 mmol/L (98-107); Sodium 138 mmol/L (136-145)
[2024-03-11 04:07] LABS: BUN/Creatinine Ratio 13.2 (10.0-20.0)
[2024-03-11 04:08] LABS: Blood Urea Nitrogen 71 mg/dL (9-23); Carbon Dioxide 20 mmol/L (20-31); Glucose 142 mg/dL (74-106); Potassium 3.5 mmol/L (3.5-5.1)
--- NOTE | 2024-03-11 07:13 | DVHPNRES ---
Progress Note Date Seen: Mar 11, 2024 Resident Creating Document: RIAZ KIDD RESIDENT Has the PT tested + for MRSA If YES, has PT been informed?: No Medical Necessity Reason Pt with a Central, PICC or Fol: Yes The following are medically ne: Central Line, Roblero Catheter Reason for roblero catheter: Strict I&O Subjective Review of Systems Patient is 78-year-old male with unknown medical history of brought to the hospital via EMS for hypertension and found to be outside at convenience store . During further evaluation emergency department, patient was diagnosed with acute stroke due to ischemia and pneumonia. Later patient was intubated on put on ventilator for worsening respiratory distress, protect of airway with diagnosis of acute stroke, pneumonia and CHF exacerbation. Past medical history: Unknown Past surgical history: Unknown Patient seen and examined in ICU. Patient is currently on ventilator. Patient's a skin rash is worsening. Ordered MRI brain. Objective vital signs Vital Sign Date Time Temp Pulse Resp B/P (MAP) Pulse Ox O2 Delivery O2 Flow Rate FiO2 03/11/24 06:41 90 26 109/57 (74) 95 03/11/24 06:36 55 03/11/24 06:00 Mechanical Ventilator+ 03/11/24 03:56 98.8 98.8 03/10/24 10:15 45 Total Intake and Output 03/10/24 03/10/24 03/11/24 15:00 23:00 07:00 Intake Total 612.60 ml 912.352 ml 873.985 ml Output Total 50 ml 35 ml Balance 612.60 ml 862.352 ml 838.985 ml medications Current Medications Medications Dose Ordered Sig/Theodora Route Start Time Stop Time Status Last Admin Dose Admin Midazolam HCl 50 ml @ 1 mls/hr Q24H IV 02/11/24 09:15 02/20/24 17:30 1 MLS/HR Sodium Chloride 10 ml Q8HR IV 02/11/24 14:00 03/11/24 06:27 10 ML Albuterol 2.5 mg Q8HR NEB 02/18/24 22:00 03/11/24 06:36 2.5 MG Diagnostic Test (Pha) 1 strip Q6HR 02/20/24 12:00 03/11/24 06:27 1 STRIP Insulin Human Regular Q6HR SC 02/20/24 12:00 03/10/24 11:47 2 UNITS Dextrose 50 ml UD PRN IV 02/20/24 08:45 Artificial Tears 1 drop Q4HR EACHEYE 02/24/24 16:00 03/11/24 06:26 1 DROP Aspirin 81 mg DAILY PO 02/25/24 10:00 03/07/24 08:10 81 MG Norepinephrine Bitartrate 250 ml @ 0.938 mls/ hr Q24H IV 02/25/24 16:45 03/11/24 01:57 37.5 MLS/HR Enteral Nutritional Formula 27.5 gm BIDWM GT 02/28/24 18:00 03/10/24 20:41 27.5 GM Heparin Sodium (Porcine) 5,000 units Q12HR SC 03/01/24 22:00 03/10/24 21:46 5,000 UNITS Metoclopramide HCl 10 mg Q8HR IV 03/05/24 14:00 03/11/24 06:27 10 MG Fentanyl Citrate 250 ml @ 2.5 mls/hr Q24H IV 03/05/24 22:45 03/10/24 18:29 15 MLS/HR Propofol 100 ml @ 3.39 mls/hr Q24H IV 03/06/24 22:15 03/10/24 20:32 16.95 MLS/HR Vancomycin HCl 0 ml @ 0 mls/hr UD IV 03/08/24 13:30 Fluconazole 100 ml @ 100 mls/hr DAILY IV 03/09/24 10:00 03/10/24 10:08 100 MLS/HR Enteral Nutritional Formula 1,000 ml 30ML/HR GT 03/08/24 17:30 03/11/24 06:28 1,000 ML Sodium Chloride 10 ml QSHIFT@10,22 IV 03/09/24 22:00 03/10/24 22:11 10 ML Meropenem 50 ml @ 17 mls/hr Q12HR IV 03/09/24 22:00 UNV Famotidine 20 mg Q12HR IV 03/10/24 22:00 03/10/24 21:45 20 MG Diphenhydramine HCl 25 mg Q8H IV 03/10/24 22:00 03/11/24 06:27 25 MG Examination General: RASS -3, afebrile, mucosae are moist Cardiovascular: Normal S1 and S2. No murmurs, gallops or rubs Respiratory: Mechanically assisted ventilation, equal bilateral airway entree. Abdomen: Soft, nontender, no organomegaly, normal bowel sounds MSK/skin: Mobilization of limbs cannot be evaluated. Neurological: Orientation cannot be assessed. No apparent motor no sensitive deficits. Pupils are isocoric and reactive. laboratory and microbiology Laboratory Tests 03/11/24 03:28 03/10/24 03:47 Test 03/11/24 03:28 Range/Units Serum Glucose 142 H 74-106 mg/dL Microbiology Date/Time Source Procedure Growth Status 03/09/24 18:50 Catheter Tip Cvp Aerobic Culture - Preliminary Resulted 03/08/24 14:42 Blood Blood Culture - Preliminary NO GROWTH AFTER 48 HOURS OF INCUBATION. Resulted 03/05/24 10:40 Bronchial Washings Gram Stain - Final Complete 03/05/24 10:40 Respiratory Culture - Final Methicillin Resistant S.aureus Complete 02/14/24 12:04 Urine - Roblero Port Urine Culture - Final Complete Problem List/Assessment/Plan Problem List/Assessment/Plan NEUROLOGY : # Altered mental status Due to Hypoxic encephalopathy/ Metabolic encephalopathy # Stroke per the 1st CT, not confirmed by the 2nd CT head on 02/15/2024 - Patient is sedated -When stable: MRI of brain an -Continue Aspirin -continue Lipitor CARDIOVASCULAR : # Hypertension emergency - now patient is hypotensive - on vasopressor Levophed: Target map greater than 65. - hold lisinopril for now # Acute diastolic CHF - continue diuretics # Left ICA moderate stenosis: - Carotid Doppler shows 50-69% stenosis left paroxysmal ICA # Infrarenal aortic aneurysm:5.8 x 6.0 cm. - no intervention for now RESPIRATORY : # Acute hypoxic respiratory failure secondary to pneumonia and CHF exacerbation # Acute respiratory distress syndrome # Septic shock due to pneumonia # Left lower lobe pneumonia Gram-positive/Gram-negative # pneumonia due to MRSA # Emphysema # Pulmonary edema - continue vancomycin -started meropenem today -on ventilator: Patient has tracheostomy on 03/01/24, FiO2 35 %, peep 8. GASTROINTESTINAL : # Fatty liver -monitor liver function #Constipation - rectal tube placement GENITOURINARY : # Prostatomegaly: -on Roblero catheter # ESRD - nephrology consultation: Patient is on dialysis. INFECTIOUS DISEASE : # Cellulitis in the legs -continue antibiotics ENDOCRINE : # diabetes mellitus type 2 -hemoglobin A1c: 7.8 - continue sliding scale insulin - Monitor blood glucose level Skin: # Generalized skin rash the possible fungal infection - Continue fluconazole - Continue Benadryl HEMATOLOGY : -leukocytosis due to pneumonia Metabolic: # Hyperkalemia - patient is on dialysis # obesity - dietary consult NUTRITION : -Glucerna PROPHYLAXIS FOR PUD : D/C Protonix 40 mg, Start Pepcid DVT PROPHYLAXIS : No anticoagulation for now as patient has bleeding Drips Fentanyl 175 Propofol 25 NE 24 Lines: Roblero catheter Endotracheal tube PICC line: 03/09/2024 Ordered MRI brain. Critical Care time spent 54 minutes including patient care, chart review and updating family, excluding procedure. Plan discussed with Dr. Larsen Plan discussed with: Other (RN) My Orders My Orders Orders - RIAZ KIDD RESIDENT Procedure Category Date Status Time Abg W/ Co-Ox RT 03/11/24 Logged 06:00 Complete Blood Count LAB 03/12/24 Verified 04:00 Abg W/ Co-Ox RT 03/11/24 Logged 06:35 Dietary Evaluation Review Comments: 1) Recommend CCHO-60, Cardiac 2gNa LoFat LoCholesterol diet when medically feasible. 2) If GI accessible but PO feeding is not an option, consider glucerna 1.2 @45ml/hr. In 24 hrs, pt will be receiving 65g protein and 1296 kcal.Adj and increase infusion rate as tolerated. 3) If NPO > 7 days and GI is not accesible, consider TPN to support 75% of her energy and protein needs. Expected Outcomes/Goals: Gradual weight loss, improved glucose RIAZ KIDD RESIDENT Mar 11, 2024 07:13
[2024-03-11 07:52] LABS: Base Excess -6.1 mmol/L (-2.0-3.0)
[2024-03-11] MEDS: SODIUM CHL 0.9% 1000 ML BAG XX ONE (08:15)
[2024-03-11 09:50] LABS: Basophils # (auto) 0 10 ^3/uL (0-0.2); Basophils % (auto) 0.1 % (0.0-2.0); Eosinophils # (auto) 1.8 10 ^3/uL (0-0.8); Eosinophils % (auto) 10.4 % (0.0-7.0); Hematocrit 30.5 % (41.0-53.0); Hemoglobin 10.2 g/dL (13.5-17.5); Lymphocytes # (auto) 1.1 10 ^3/uL (0.4-5.4); Lymphocytes % (auto) 6.4 % (10.0-50.0); Mean Corpuscular Hemoglobin 29.7 pg (28.0-32.0); Mean Corpuscular Hgb Conc. 33.5 g/dL (32.0-36.0); Mean Corpuscular Volume 88.7 fL (80.0-100.0); Monocytes # (auto) 0.7 10 ^3/uL (0-1.3); Monocytes % (auto) 4.3 % (0.0-12.0); Neutrophils # (auto) 13.6 10 ^3/uL (1.6-8.6); Neutrophils % (auto) 78.8 % (37.0-80.0); Platelet Count (auto) 231 10^3/uL (140-450); Red Blood Cells 3.44 10^6/uL (4.5-5.90); White Blood Cell 17.3 10^3/uL (4.4-10.8)
--- NOTE | 2024-03-11 10:38 | DVHPN2 ---
Progress Note - Dictate Date Seen: Mar 11, 2024 Has the PT tested + for MRSA If YES, has PT been informed?: No Medical Necessity Reason Pt with a Central, PICC or Fol: Yes The following are medically ne: Central Line, Roblero Catheter Reason for roblero catheter: Strict I&O Subjective Mr. Glass is a 78 years old gentleman with a history of obesity, the patient was taken to the [facility] on 02/11/2024 with a chief company of elevated blood pressure. I have seen and examined the patient, I have discussed with his nurse and other medical staff his status post trach, sedated, I see occasional blinking Fentanyl 150 mcg/hour, propofol 15 mcg/minute, levo 20 mcg/minute UDS, 02/11/2024: Negative Plasma alcohol, 02/11/2024: 3.4 Urinalysis, 02/11/2024: Unremarkable ABG, 02/11/2024: Respiratory acidosis CBC, 02/11/2024: Unremarkable BMP 02/11/2024: Unremarkable HCO3, 02/11/2024: 29, 02/12/2024, 33 Liver function tests, 02/12/2024: Normal HbA1c, 02/11/2024: 7.8 TG/Chol/LDL/LDL/HDL, 02/11/2024: 190/171/109/42 TSH, 02/11/2024: 4.29 EEG, 02/12/2024: Moderately abnormal EEG Carotid Doppler, 02/11/2024: Normal left ventricular size and dimension. Normal left ventricular systolic function estimated ejection fraction 60%. There is a grade 1 diastolic dysfunction. Normal right ventricular size and dimension. Normal right ventricular systolic function. Normal biatrial size and dimension. The aortic valve is thickened and sclerotic there is [id number] aortic valve stenosis with a peak gradient of33 and mean gradient of 18 mm of mercury. The mitral valve is mildly thickened there is mild mitral valve regurgitation. There is mild tricuspid valve regurgitation. The pulmonary valve is grossly normal. No pericardial effusion. Carotid Doppler, 02/11/2024: 1. 50-69% stenosis at the level of the left proximal ICA. 2. No hemodynamically significant stenosis noted in the right carotid system. Chest x-ray, 02/11/2024: Lines and tubes in appropriate position. Cardiomegaly with small left pleural effusion and diffuse interstitial opacities which may reflect pulmonary edema CT head, 02/11/2024: 1. Well-defined hypodensity of approximate size 10 x 8 mm in the simon on the left side, concerning for acute infarct. 2. Chronic periventricular ischemic changes. 3. Cerebral and cerebellar atrophy, likely age-related. 4. Chronic and / or ancillary findings as described above. 5. Advised further evaluation with MRI brain without contrast. CT head, 02/15/2024: 1. No acute intracranial process. 2. Moderate acute pansinusitis. vital signs Vital Sign Date Time Temp Pulse Resp B/P (MAP) Pulse Ox O2 Delivery O2 Flow Rate FiO2 03/11/24 09:57 94 26 116/52 (73) 95 55 03/11/24 08:15 Mechanical Ventilator+ 03/11/24 08:11 99.9 99.9 03/10/24 10:15 45 Total Intake and Output 03/10/24 03/10/24 03/11/24 15:00 23:00 07:00 Intake Total 612.60 ml 912.352 ml 873.985 ml Output Total 50 ml 35 ml Balance 612.60 ml 862.352 ml 838.985 ml medications Current Medications Medications Dose Ordered Sig/Theodora Route Start Time Stop Time Status Last Admin Dose Admin Midazolam HCl 50 ml @ 1 mls/hr Q24H IV 02/11/24 09:15 02/20/24 17:30 1 MLS/HR Sodium Chloride 10 ml Q8HR IV 02/11/24 14:00 03/11/24 06:27 10 ML Albuterol 2.5 mg Q8HR NEB 02/18/24 22:00 03/11/24 06:36 2.5 MG Diagnostic Test (Pha) 1 strip Q6HR 02/20/24 12:00 03/11/24 06:27 1 STRIP Insulin Human Regular Q6HR SC 02/20/24 12:00 03/10/24 11:47 2 UNITS Dextrose 50 ml UD PRN IV 02/20/24 08:45 Artificial Tears 1 drop Q4HR EACHEYE 02/24/24 16:00 03/11/24 06:26 1 DROP Aspirin 81 mg DAILY PO 02/25/24 10:00 03/07/24 08:10 81 MG Norepinephrine Bitartrate 250 ml @ 0.938 mls/ hr Q24H IV 02/25/24 16:45 03/11/24 07:33 37.5 MLS/HR Enteral Nutritional Formula 27.5 gm BIDWM GT 02/28/24 18:00 03/11/24 08:17 27.5 GM Heparin Sodium (Porcine) 5,000 units Q12HR SC 03/01/24 22:00 03/10/24 21:46 5,000 UNITS Metoclopramide HCl 10 mg Q8HR IV 03/05/24 14:00 03/11/24 06:27 10 MG Fentanyl Citrate 250 ml @ 2.5 mls/hr Q24H IV 03/05/24 22:45 03/10/24 18:29 15 MLS/HR Propofol 100 ml @ 3.39 mls/hr Q24H IV 03/06/24 22:15 03/11/24 07:35 13.56 MLS/HR Vancomycin HCl 0 ml @ 0 mls/hr UD IV 03/08/24 13:30 Fluconazole 100 ml @ 100 mls/hr DAILY IV 03/09/24 10:00 03/10/24 10:08 100 MLS/HR Enteral Nutritional Formula 1,000 ml 30ML/HR GT 03/08/24 17:30 03/11/24 06:28 1,000 ML Sodium Chloride 10 ml QSHIFT@10,22 IV 03/09/24 22:00 03/10/24 22:11 10 ML Meropenem 50 ml @ 17 mls/hr Q12HR IV 03/09/24 22:00 UNV Famotidine 20 mg Q12HR IV 03/10/24 22:00 03/10/24 21:45 20 MG Diphenhydramine HCl 25 mg Q8H IV 03/10/24 22:00 03/11/24 06:27 25 MG objective The patient is well-nourished and well-developed with no distress. The patient is intubated MENTAL STATUS: Subjective CRANIAL NERVES: Pupils are equal, round and slightly reactive, 2-3mm, the left side is slightly bigger. There was no associated ptosis, abnormal vascular dilatation and skin secretion. There are corneal reflexes and doll's eyes phenomenon. No signs of facial weakness. There are weak gagging or coughing reflexes SENSATION: Subjective MOTOR: Normal tone in the upper and lower extremity. Normal muscle bulk. No fasciculations. No spontaneous movement. REFLEXES: Deep tendon reflexes are symmetrical. No pathological reflexes. CEREBELLAR/COORDINATION: Deferred GAIT/STATION: deferred. laboratory and microbiology Laboratory Tests 03/11/24 09:25 03/11/24 03:28 Test 03/11/24 03:28 Range/Units Serum Glucose 142 H 74-106 mg/dL Problem List Altered mental status Hypoxic encephalopathy Metabolic encephalopathy Respiratory failure Hypertension emergency Respiratory acidosis Sepsis, ? Septic shock Pneumonia Cellulitis in the legs Stroke per the 1st CT, not confirmed by the 2nd CT head on 02/15/2024 Left ICA moderate stenosis Anisocoria, unclear clinical significance Assessment/Plan Monitoring Supportive treatments ICU care Stabilize vitals Respiratory support/vent management IV antibiotics Aspirin 81 mg daily Lipitor 40 mg daily DVT prophylaxis NG tube feeding Pulmonology on case Cardiology on case Social service on case More recommendation per clinical course This medical document was created using an electronic medical record system with [employer] dictation system. Although this document has been carefully reviewed, there may still be some phonetic and typographical errors. These areas are purely typographical due to imperfections of the software programs, and do not reflect any compromise in the patient's medical care. Prognosis poor Dietary Evaluation Review Comments: 1) Recommend CCHO-60, Cardiac 2gNa LoFat LoCholesterol diet when medically feasible. 2) If GI accessible but PO feeding is not an option, consider glucerna 1.2 @45ml/hr. In 24 hrs, pt will be receiving 65g protein and 1296 kcal.Adj and increase infusion rate as tolerated. 3) If NPO > 7 days and GI is not accesible, consider TPN to support 75% of her energy and protein needs. Expected Outcomes/Goals: Gradual weight loss, improved glucose Plan discussed with: Other TRAV CRUZ MD Mar 11, 2024 10:38
[2024-03-11] MEDS: VASOPRESSIN 20 UNITS in SODIUM CHL 0.9% 99 ML IV SCH (11:30)
[2024-03-11] MEDS: EPINEPHrine HCL 250 ML IV SCH (12:15)
[2024-03-11] MEDS: PROPOFOL 0 ML IV ONE (15:19)
--- NOTE | 2024-03-11 15:30 | DVHPN2 ---
Progress Note - Dictate Date Seen: Mar 11, 2024 Has the PT tested + for MRSA If YES, has PT been informed?: No Medical Necessity Reason Pt with a Central, PICC or Fol: Yes The following are medically ne: Central Line, Roblero Catheter Reason for roblero catheter: Strict I&O Subjective s/p HD today tolerated treatment vital signs Vital Sign Date Time Temp Pulse Resp B/P (MAP) Pulse Ox O2 Delivery O2 Flow Rate FiO2 03/11/24 14:22 109 27 121/63 (82) 95 55 03/11/24 08:15 Mechanical Ventilator+ 03/11/24 08:11 99.9 99.9 03/10/24 10:15 45 Total Intake and Output 03/10/24 03/10/24 03/11/24 15:00 23:00 07:00 Intake Total 612.60 ml 912.352 ml 873.985 ml Output Total 50 ml 35 ml Balance 612.60 ml 862.352 ml 838.985 ml medications Current Medications Medications Dose Ordered Sig/Theodora Route Start Time Stop Time Status Last Admin Dose Admin Midazolam HCl 50 ml @ 1 mls/hr Q24H IV 02/11/24 09:15 02/20/24 17:30 1 MLS/HR Sodium Chloride 10 ml Q8HR IV 02/11/24 14:00 03/11/24 14:53 10 ML Albuterol 2.5 mg Q8HR NEB 02/18/24 22:00 03/11/24 14:22 2.5 MG Diagnostic Test (Pha) 1 strip Q6HR 02/20/24 12:00 03/11/24 13:29 1 STRIP Insulin Human Regular Q6HR SC 02/20/24 12:00 03/11/24 13:31 2 UNITS Dextrose 50 ml UD PRN IV 02/20/24 08:45 Artificial Tears 1 drop Q4HR EACHEYE 02/24/24 16:00 03/11/24 14:53 1 DROP Aspirin 81 mg DAILY PO 02/25/24 10:00 03/07/24 08:10 81 MG Norepinephrine Bitartrate 250 ml @ 0.938 mls/ hr Q24H IV 02/25/24 16:45 03/11/24 13:16 56.25 MLS/HR Enteral Nutritional Formula 27.5 gm BIDWM GT 02/28/24 18:00 03/11/24 08:17 27.5 GM Heparin Sodium (Porcine) 5,000 units Q12HR SC 03/01/24 22:00 03/10/24 21:46 5,000 UNITS Metoclopramide HCl 10 mg Q8HR IV 03/05/24 14:00 03/11/24 14:52 10 MG Fentanyl Citrate 250 ml @ 2.5 mls/hr Q24H IV 03/05/24 22:45 03/11/24 10:58 15 MLS/HR Propofol 100 ml @ 3.39 mls/hr Q24H IV 03/06/24 22:15 03/11/24 07:35 13.56 MLS/HR Vancomycin HCl 0 ml @ 0 mls/hr UD IV 03/08/24 13:30 Fluconazole 100 ml @ 100 mls/hr DAILY IV 03/09/24 10:00 03/11/24 13:28 100 MLS/HR Enteral Nutritional Formula 1,000 ml 30ML/HR GT 03/08/24 17:30 03/11/24 06:28 1,000 ML Sodium Chloride 10 ml QSHIFT@10,22 IV 03/09/24 22:00 03/11/24 10:47 10 ML Meropenem 50 ml @ 17 mls/hr Q12HR IV 03/09/24 22:00 UNV Famotidine 20 mg Q12HR IV 03/10/24 22:00 03/11/24 10:47 20 MG Diphenhydramine HCl 25 mg Q8H IV 03/10/24 22:00 03/11/24 14:53 25 MG Vasopressin 20 units/Sodium Chloride 100 ml @ 9 mls/hr Q11H7M IV 03/11/24 11:30 03/11/24 11:30 9 MLS/HR Epinephrine HCl 250 ml @ 7.5 mls/hr Q24H IV 03/11/24 12:15 objective obese male intubated Unresponsive b/l bruising diffuse rash anasarca improved roblero laboratory and microbiology Laboratory Tests 03/11/24 09:25 03/11/24 03:28 Test 03/11/24 03:28 Range/Units Serum Glucose 142 H 74-106 mg/dL Assessment/Plan Acute kidney injury due to prerenal + hypotension + vancotoxicity no previous ckd acute respiratory failure septic shock due to PNA hypervolemic hyperkalemia diffuse rash HD today change diet to low K pressors to keep MAP > 65 I/O Critically ill prognosis is poor grim prognosis , no evidence of renal recovery. Clinically has not shown any improvement . Primary team will determine assisted goals. Will discuss treatment plan prior to arranging any further dialysis Dietary Evaluation Review Comments: 1) Recommend CCHO-60, Cardiac 2gNa LoFat LoCholesterol diet when medically feasible. 2) If GI accessible but PO feeding is not an option, consider glucerna 1.2 @45ml/hr. In 24 hrs, pt will be receiving 65g protein and 1296 kcal.Adj and increase infusion rate as tolerated. 3) If NPO > 7 days and GI is not accesible, consider TPN to support 75% of her energy and protein needs. Expected Outcomes/Goals: Gradual weight loss, improved glucose Plan discussed with: Other Critical Care Time(min): 33 LETY LAM MD Mar 11, 2024 15:30
[2024-03-11] MEDS: VANCOMYCIN 500mg/100mL 100 ML IV ONE (17:05)
[2024-03-11] MEDS: EPOETIN ALFA-EPBX 10,000 UNIT/1ML VIAL SC ONE (21:34)
[2024-03-12] VITALS (116 sets, daily range): BP systolic 81–182; BP diastolic 40–66; PULSE 82–104; RESP 12–28; TEMP 98.3–99.5; O2SAT 94–100
[2024-03-12 03:56] LABS: Basophils # (auto) 0.1 10 ^3/uL (0-0.2); Basophils % (auto) 0.6 % (0.0-2.0); Eosinophils % (auto) 9.4 % (0.0-7.0); Hematocrit 33.2 % (41.0-53.0); Hemoglobin 10.8 g/dL (13.5-17.5); Lymphocytes # (auto) 1.3 10 ^3/uL (0.4-5.4); Lymphocytes % (auto) 6.4 % (10.0-50.0); Mean Corpuscular Hgb Conc. 32.4 g/dL (32.0-36.0); Mean Corpuscular Volume 89.4 fL (80.0-100.0); Monocytes # (auto) 0.7 10 ^3/uL (0-1.3); Monocytes % (auto) 3.5 % (0.0-12.0); Neutrophils # (auto) 16.8 10 ^3/uL (1.6-8.6); Neutrophils % (auto) 80.1 % (37.0-80.0); Platelet Count (auto) 261 10^3/uL (140-450); Red Blood Cells 3.71 10^6/uL (4.5-5.90); Red Cell Distribution Width 15.4 % (11.8-14.3); White Blood Cell 20.9 10^3/uL (4.4-10.8)
[2024-03-12 03:59] LABS: Anion Gap 18 (5-15); Chloride 100 mmol/L (98-107); Sodium 137 mmol/L (136-145)
[2024-03-12 04:00] LABS: Calcium 8.7 mg/dL (8.7-10.4)
[2024-03-12 04:05] LABS: BUN/Creatinine Ratio 12.3 (10.0-20.0)
[2024-03-12 04:20] LABS: Blood Urea Nitrogen 59 mg/dL (9-23); Carbon Dioxide 19 mmol/L (20-31); Glucose 145 mg/dL (74-106); Potassium 3.4 mmol/L (3.5-5.1)
[2024-03-12 07:20] LABS: Base Excess -5.3 mmol/L (-2.0-3.0)
[2024-03-12] MEDS: NOREPINEPHRINE BITARTRATE 32 MG in SODIUM CHL 0.9% 218 ML IV SCH ×2 (10:40→11:00)
--- NOTE | 2024-03-12 15:47 | DVH ---
EXAM: CT HEAD WITHOUT CONTRAST HISTORY: Follow up CT COMPARISON: CT HEAD WITHOUT CONTRAST on DOS: 02/15/24, CT HEAD WITHOUT CONTRAST on DOS: 02/11/24 TECHNIQUE: Axial images of the head were obtained and reformatted in coronal and sagittal planes. All CT scans at this medical facility are performed using dose modulation techniques as appropriate t o a performed exam including the following: Automated exposure control was utilized; adjustment of th e MA and/or KV according to patient size; and use of iterative reconstruction technique. CT Dose: CTDI volume is 65.63 mGy. Dose-length product is 1183.14 mGy*cm FINDINGS: There is no evidence of acute intracranial hemorrhage, mass, mass effect midline shift. There is no h ydrocephalus or extra-axial fluid collection. [place]-white matter differentiation is maintained. There is mucosal thickening in the ethmoid and right maxillary sinus. There is likely inspissated con tents filling the sphenoid sinuses. There is opacification of the bilateral mastoid air cells. The c alvarium is intact. IMPRESSION: 1. No acute intracranial process. 2. Paranasal sinus disease as described above. HS:Y
--- NOTE | 2024-03-12 16:24 | DVHPN2 ---
Progress Note - Dictate Date Seen: Mar 12, 2024 Has the PT tested + for MRSA If YES, has PT been informed?: No Medical Necessity Reason Pt with a Central, PICC or Fol: Yes The following are medically ne: Central Line, Roblero Catheter Reason for roblero catheter: Strict I&O Subjective Clinically unchanged vital signs Vital Sign Date Time Temp Pulse Resp B/P (MAP) Pulse Ox O2 Delivery O2 Flow Rate FiO2 03/12/24 14:00 100/48 03/12/24 13:58 98 26 95 55 03/12/24 13:45 Mechanical Ventilator+ 03/12/24 13:37 98.3 98.3 03/12/24 09:36 55 Total Intake and Output 03/11/24 03/11/24 03/12/24 15:00 23:00 07:00 Intake Total 672.91 ml 1138.335 ml 982.816 ml Output Total 645 ml 545 ml Balance 672.91 ml 493.335 ml 437.816 ml medications Current Medications Medications Dose Ordered Sig/Theodora Route Start Time Stop Time Status Last Admin Dose Admin Midazolam HCl 50 ml @ 1 mls/hr Q24H IV 02/11/24 09:15 02/20/24 17:30 1 MLS/HR Sodium Chloride 10 ml Q8HR IV 02/11/24 14:00 03/12/24 05:38 10 ML Albuterol 2.5 mg Q8HR NEB 02/18/24 22:00 03/12/24 13:57 2.5 MG Diagnostic Test (Pha) 1 strip Q6HR 02/20/24 12:00 03/12/24 11:03 1 STRIP Insulin Human Regular Q6HR SC 02/20/24 12:00 03/12/24 00:22 2 UNITS Dextrose 50 ml UD PRN IV 02/20/24 08:45 Artificial Tears 1 drop Q4HR EACHEYE 02/24/24 16:00 03/12/24 13:39 1 DROP Aspirin 81 mg DAILY PO 02/25/24 10:00 03/12/24 07:36 81 MG Enteral Nutritional Formula 27.5 gm BIDWM GT 02/28/24 18:00 03/12/24 07:31 27.5 GM Heparin Sodium (Porcine) 5,000 units Q12HR SC 03/01/24 22:00 03/12/24 07:36 5,000 UNITS Metoclopramide HCl 10 mg Q8HR IV 03/05/24 14:00 03/12/24 13:39 10 MG Fentanyl Citrate 250 ml @ 2.5 mls/hr Q24H IV 03/05/24 22:45 03/12/24 02:33 17.5 MLS/HR Propofol 100 ml @ 3.39 mls/hr Q24H IV 03/06/24 22:15 03/12/24 15:51 10.17 MLS/HR Vancomycin HCl 0 ml @ 0 mls/hr UD IV 03/08/24 13:30 Fluconazole 100 ml @ 100 mls/hr DAILY IV 03/09/24 10:00 03/12/24 07:37 100 MLS/HR Enteral Nutritional Formula 1,000 ml 30ML/HR GT 03/08/24 17:30 03/12/24 05:38 1,000 ML Sodium Chloride 10 ml QSHIFT@10,22 IV 03/09/24 22:00 03/12/24 07:12 10 ML Meropenem 50 ml @ 17 mls/hr Q12HR IV 03/09/24 22:00 UNV Famotidine 20 mg Q12HR IV 03/10/24 22:00 03/12/24 07:36 20 MG Diphenhydramine HCl 25 mg Q8H IV 03/10/24 22:00 03/12/24 13:39 25 MG Vasopressin 20 units/Sodium Chloride 100 ml @ 9 mls/hr Q11H7M IV 03/11/24 11:30 03/11/24 11:30 9 MLS/HR Epinephrine HCl 250 ml @ 7.5 mls/hr Q24H IV 03/11/24 12:15 Norepinephrine Bitartrate 32 mg/ Dextrose 250 ml @ 0.234 mls/ hr Q24H IV 03/12/24 16:30 objective Gen: Intubated lungs: Rhonchi cvs: no rub ext: no edema laboratory and microbiology Laboratory Tests 03/12/24 03:10 Test 03/12/24 03:10 Range/Units Serum Glucose 145 H 74-106 mg/dL Assessment/Plan Problem List/Assessment/Plan Assessment/Plan Acute kidney injury likely ATN due to hypotension + vancotoxicity Acute CVA no previous ckd acute respiratory failure with ARDS septic shock due to PNA bradycardia hypervolemic recs - daily evaluation for kidney replacement therapy - overall poor prognosis Dietary Evaluation Review Comments: 1) Recommend CCHO-60, Cardiac 2gNa LoFat LoCholesterol diet when medically feasible. 2) If GI accessible but PO feeding is not an option, consider glucerna 1.2 @45ml/hr. In 24 hrs, pt will be receiving 65g protein and 1296 kcal.Adj and increase infusion rate as tolerated. 3) If NPO > 7 days and GI is not accesible, consider TPN to support 75% of her energy and protein needs. Expected Outcomes/Goals: Gradual weight loss, improved glucose Plan discussed with: Other TAE COSTA MD Mar 12, 2024 16:24
--- NOTE | 2024-03-12 17:07 | DVHPNRES ---
Progress Note Date Seen: Mar 12, 2024 Resident Creating Document: RIAZ KIDD RESIDENT Has the PT tested + for MRSA If YES, has PT been informed?: No Medical Necessity Reason Pt with a Central, PICC or Fol: Yes The following are medically ne: Central Line, Roblero Catheter Reason for roblero catheter: Strict I&O Subjective Review of Systems Patient is 78-year-old male with unknown medical history of brought to the hospital via EMS for hypertension and found to be outside at convenience store . During further evaluation emergency department, patient was diagnosed with acute stroke due to ischemia and pneumonia. Later patient was intubated on put on ventilator for worsening respiratory distress, protect of airway with diagnosis of acute stroke, pneumonia and CHF exacerbation. Past medical history: Unknown Past surgical history: Unknown Patient seen and examined in ICU. Patient is currently on ventilator. Patient's a skin rash is worsening. Ordered MRI brain. Objective vital signs Vital Sign Date Time Temp Pulse Resp B/P (MAP) Pulse Ox O2 Delivery O2 Flow Rate FiO2 03/12/24 16:22 98.4 100 20 111/52 (71) 97 98.4 03/12/24 16:00 55 03/12/24 16:00 Mechanical Ventilator+ 03/12/24 09:36 55 Total Intake and Output 03/11/24 03/11/24 03/12/24 15:00 23:00 07:00 Intake Total 672.91 ml 1138.335 ml 982.816 ml Output Total 645 ml 545 ml Balance 672.91 ml 493.335 ml 437.816 ml medications Current Medications Medications Dose Ordered Sig/Theodora Route Start Time Stop Time Status Last Admin Dose Admin Midazolam HCl 50 ml @ 1 mls/hr Q24H IV 02/11/24 09:15 02/20/24 17:30 1 MLS/HR Albuterol 2.5 mg Q8HR NEB 02/18/24 22:00 03/12/24 13:57 2.5 MG Diagnostic Test (Pha) 1 strip Q6HR 02/20/24 12:00 03/12/24 17:02 1 STRIP Insulin Human Regular Q6HR SC 02/20/24 12:00 03/12/24 17:02 2 UNITS Dextrose 50 ml UD PRN IV 02/20/24 08:45 Artificial Tears 1 drop Q4HR EACHEYE 02/24/24 16:00 12/6/24 16:54 1 DROP Aspirin 81 mg DAILY PO 02/25/24 10:00 03/12/24 07:36 81 MG Enteral Nutritional Formula 27.5 gm BIDWM GT 02/28/24 18:00 03/12/24 07:31 27.5 GM Heparin Sodium (Porcine) 5,000 units Q12HR SC 03/01/24 22:00 03/12/24 07:36 5,000 UNITS Metoclopramide HCl 10 mg Q8HR IV 03/05/24 14:00 03/12/24 13:39 10 MG Fentanyl Citrate 250 ml @ 2.5 mls/hr Q24H IV 03/05/24 22:45 03/12/24 02:33 17.5 MLS/HR Propofol 100 ml @ 3.39 mls/hr Q24H IV 03/06/24 22:15 03/12/24 15:51 10.17 MLS/HR Vancomycin HCl 0 ml @ 0 mls/hr UD IV 03/08/24 13:30 Fluconazole 100 ml @ 100 mls/hr DAILY IV 03/09/24 10:00 03/12/24 07:37 100 MLS/HR Enteral Nutritional Formula 1,000 ml 30ML/HR GT 03/08/24 17:30 03/12/24 05:38 1,000 ML Sodium Chloride 10 ml QSHIFT@10,22 IV 03/09/24 22:00 03/12/24 07:12 10 ML Meropenem 50 ml @ 17 mls/hr Q12HR IV 03/09/24 22:00 UNV Famotidine 20 mg Q12HR IV 03/10/24 22:00 03/12/24 07:36 20 MG Diphenhydramine HCl 25 mg Q8H IV 03/10/24 22:00 03/12/24 13:39 25 MG Vasopressin 20 units/Sodium Chloride 100 ml @ 9 mls/hr Q11H7M IV 03/11/24 11:30 03/11/24 11:30 9 MLS/HR Epinephrine HCl 250 ml @ 7.5 mls/hr Q24H IV 03/11/24 12:15 Norepinephrine Bitartrate 32 mg/ Dextrose 250 ml @ 0.234 mls/ hr Q24H IV 03/12/24 16:30 Examination General: RASS -3, afebrile, mucosae are moist Cardiovascular: Normal S1 and S2. No murmurs, gallops or rubs Respiratory: Mechanically assisted ventilation, equal bilateral airway entree. Abdomen: Soft, nontender, no organomegaly, normal bowel sounds MSK/skin: Mobilization of limbs cannot be evaluated. Neurological: Orientation cannot be assessed. No apparent motor no sensitive deficits. Pupils are isocoric and reactive. laboratory and microbiology Laboratory Tests 03/12/24 03:10 Test 03/12/24 03:10 Range/Units Serum Glucose 145 H 74-106 mg/dL Microbiology Date/Time Source Procedure Growth Status 03/09/24 18:50 Catheter Tip Cvp Aerobic Culture - Final Klebsiella pneumoniae - ESBL Complete 03/08/24 14:42 Blood Blood Culture - Preliminary NO GROWTH AFTER 72 HOURS OF INCUBATION. Resulted 03/05/24 10:40 Bronchial Washings Gram Stain - Final Complete 03/05/24 10:40 Respiratory Culture - Final Methicillin Resistant S.aureus Complete 02/14/24 12:04 Urine - Roblero Port Urine Culture - Final Complete Problem List/Assessment/Plan Problem List/Assessment/Plan NEUROLOGY : # Altered mental status Due to Hypoxic encephalopathy/ Metabolic encephalopathy # Stroke per the 1st CT, not confirmed by the 2nd CT head on 02/15/2024 - Patient is sedated -When stable: MRI of brain an -Continue Aspirin -continue Lipitor CARDIOVASCULAR : # Hypertension emergency - now patient is hypotensive - on vasopressor Levophed: Target map greater than 65. - hold lisinopril for now # Acute diastolic CHF - continue diuretics # Left ICA moderate stenosis: - Carotid Doppler shows 50-69% stenosis left paroxysmal ICA # Infrarenal aortic aneurysm:5.8 x 6.0 cm. - no intervention for now RESPIRATORY : # Acute hypoxic respiratory failure secondary to pneumonia and CHF exacerbation # Acute respiratory distress syndrome # Septic shock due to pneumonia # Left lower lobe pneumonia Gram-positive/Gram-negative # pneumonia due to MRSA # Emphysema # Pulmonary edema - continue vancomycin -started meropenem today -on ventilator: Patient has tracheostomy on 03/01/24, FiO2 35 %, peep 8. GASTROINTESTINAL : # Fatty liver -monitor liver function #Constipation - rectal tube placement GENITOURINARY : # Prostatomegaly: -on Roblero catheter # ESRD - nephrology consultation: Patient is on dialysis. INFECTIOUS DISEASE : # Cellulitis in the legs -continue antibiotics ENDOCRINE : # diabetes mellitus type 2 -hemoglobin A1c: 7.8 - continue sliding scale insulin - Monitor blood glucose level Skin: # Generalized skin rash the possible fungal infection - Continue fluconazole - Continue Benadryl HEMATOLOGY : -leukocytosis due to pneumonia Metabolic: # Hyperkalemia - patient is on dialysis # obesity - dietary consult NUTRITION : -Glucerna PROPHYLAXIS FOR PUD : D/C Protonix 40 mg, Start Pepcid DVT PROPHYLAXIS : No anticoagulation for now as patient has bleeding Drips Fentanyl 150 Propofol 25 NE 24 Lines: Roblero catheter Endotracheal tube PICC line: 03/09/2024 Ordered MRI, Pending Critical Care time spent 51 minutes including patient care, chart review and updating family, excluding procedure. Plan discussed with Dr. Estrella Plan discussed with: Other (RN) My Orders My Orders Orders - RIAZ KIDD RESIDENT Procedure Category Date Status Time Abg W/ Co-Ox RT 03/12/24 Logged 05:37 Ventilator Orders RT 03/12/24 Transmitted 05:37 D5w 5% (Dextrose 5%) PHA 03/12/24 In Process W/Norepinephrine Bi 16:30 Dietary Evaluation Review Comments: 1) Recommend CCHO-60, Cardiac 2gNa LoFat LoCholesterol diet when medically feasible. 2) If GI accessible but PO feeding is not an option, consider glucerna 1.2 @45ml/hr. In 24 hrs, pt will be receiving 65g protein and 1296 kcal.Adj and increase infusion rate as tolerated. 3) If NPO > 7 days and GI is not accesible, consider TPN to support 75% of her energy and protein needs. Expected Outcomes/Goals: Gradual weight loss, improved glucose RIAZ KIDD RESIDENT Mar 12, 2024 17:07
[2024-03-12] MEDS: NOREPINEPHRINE BITARTRATE 32 MG in D5W 5% 218 ML IV SCH (17:24)
--- NOTE | 2024-03-12 19:28 | DVHPN2 ---
Progress Note - Dictate Date Seen: Mar 12, 2024 Has the PT tested + for MRSA If YES, has PT been informed?: No Medical Necessity Reason Pt with a Central, PICC or Fol: Yes The following are medically ne: Central Line, Roblero Catheter Reason for roblero catheter: Strict I&O Subjective Mr. Glass is a 78 years old gentleman with a history of obesity, the patient was taken to the [facility] on 02/11/2024 with a chief company of elevated blood pressure. I have seen and examined the patient, I have discussed with his nurse, I see occasional blinking The case was discussed with Dr. Estrella Re: Prognosis Fentanyl 50 mcg/hour, propofol 15 mcg/minute, levo 26 mcg/minute UDS, 02/11/2024: Negative Plasma alcohol, 02/11/2024: 3.4 Urinalysis, 02/11/2024: Unremarkable ABG, 02/11/2024: Respiratory acidosis CBC, 02/11/2024: Unremarkable BMP 02/11/2024: Unremarkable HCO3, 02/11/2024: 29, 02/12/2024, 33 Liver function tests, 02/12/2024: Normal HbA1c, 02/11/2024: 7.8 TG/Chol/LDL/LDL/HDL, 02/11/2024: 190/171/109/42 TSH, 02/11/2024: 4.29 EEG, 02/12/2024: Moderately abnormal EEG Carotid Doppler, 02/11/2024: Normal left ventricular size and dimension. Normal left ventricular systolic function estimated ejection fraction 60%. There is a grade 1 diastolic dysfunction. Normal right ventricular size and dimension. Normal right ventricular systolic function. Normal biatrial size and dimension. The aortic valve is thickened and sclerotic there is [id number] aortic valve stenosis with a peak gradient of33 and mean gradient of 18 mm of mercury. The mitral valve is mildly thickened there is mild mitral valve regurgitation. There is mild tricuspid valve regurgitation. The pulmonary valve is grossly normal. No pericardial effusion. Carotid Doppler, 02/11/2024: 1. 50-69% stenosis at the level of the left proximal ICA. 2. No hemodynamically significant stenosis noted in the right carotid system. Chest x-ray, 02/11/2024: Lines and tubes in appropriate position. Cardiomegaly with small left pleural effusion and diffuse interstitial opacities which may reflect pulmonary edema CT head, 02/11/2024: 1. Well-defined hypodensity of approximate size 10 x 8 mm in the simon on the left side, concerning for acute infarct. 2. Chronic periventricular ischemic changes. 3. Cerebral and cerebellar atrophy, likely age-related. 4. Chronic and / or ancillary findings as described above. 5. Advised further evaluation with MRI brain without contrast. CT head, 02/15/2024: 1. No acute intracranial process. 2. Moderate acute pansinusitis. CT head, 03/12/2024: 1. No acute intracranial process. 2. Paranasal sinus disease as described above vital signs Vital Sign Date Time Temp Pulse Resp B/P (MAP) Pulse Ox O2 Delivery O2 Flow Rate FiO2 03/12/24 19:07 96 18 106/47 (66) 98 03/12/24 17:32 55 03/12/24 17:32 Mechanical Ventilator+ 03/12/24 16:22 98.4 98.4 03/12/24 09:36 55 Total Intake and Output 03/11/24 03/11/24 03/12/24 15:00 23:00 07:00 Intake Total 672.91 ml 1138.335 ml 982.816 ml Output Total 645 ml 545 ml Balance 672.91 ml 493.335 ml 437.816 ml medications Current Medications Medications Dose Ordered Sig/Theodora Route Start Time Stop Time Status Last Admin Dose Admin Midazolam HCl 50 ml @ 1 mls/hr Q24H IV 02/11/24 09:15 02/20/24 17:30 1 MLS/HR Albuterol 2.5 mg Q8HR NEB 02/18/24 22:00 03/12/24 13:57 2.5 MG Diagnostic Test (Pha) 1 strip Q6HR 02/20/24 12:00 03/12/24 17:02 1 STRIP Insulin Human Regular Q6HR SC 02/20/24 12:00 03/12/24 17:02 2 UNITS Dextrose 50 ml UD PRN IV 02/20/24 08:45 Artificial Tears 1 drop Q4HR EACHEYE 02/24/24 16:00 03/12/24 16:54 1 DROP Aspirin 81 mg DAILY PO 02/25/24 10:00 03/12/24 07:36 81 MG Enteral Nutritional Formula 27.5 gm BIDWM GT 02/28/24 18:00 03/12/24 07:31 27.5 GM Heparin Sodium (Porcine) 5,000 units Q12HR SC 03/01/24 22:00 03/12/24 07:36 5,000 UNITS Metoclopramide HCl 10 mg Q8HR IV 03/05/24 14:00 03/12/24 13:39 10 MG Fentanyl Citrate 250 ml @ 2.5 mls/hr Q24H IV 03/05/24 22:45 03/12/24 18:36 5 MLS/HR Propofol 100 ml @ 3.39 mls/hr Q24H IV 03/06/24 22:15 03/12/24 15:51 10.17 MLS/HR Vancomycin HCl 0 ml @ 0 mls/hr UD IV 03/08/24 13:30 Fluconazole 100 ml @ 100 mls/hr DAILY IV 03/09/24 10:00 03/12/24 07:37 100 MLS/HR Enteral Nutritional Formula 1,000 ml 30ML/HR GT 03/08/24 17:30 03/12/24 05:38 1,000 ML Sodium Chloride 10 ml QSHIFT@10,22 IV 03/09/24 22:00 03/12/24 07:12 10 ML Meropenem 50 ml @ 17 mls/hr Q12HR IV 03/09/24 22:00 UNV Famotidine 20 mg Q12HR IV 03/10/24 22:00 03/12/24 07:36 20 MG Diphenhydramine HCl 25 mg Q8H IV 03/10/24 22:00 03/12/24 13:39 25 MG Vasopressin 20 units/Sodium Chloride 100 ml @ 9 mls/hr Q11H7M IV 03/11/24 11:30 03/11/24 11:30 9 MLS/HR Epinephrine HCl 250 ml @ 7.5 mls/hr Q24H IV 03/11/24 12:15 Norepinephrine Bitartrate 32 mg/ Dextrose 250 ml @ 0.234 mls/ hr Q24H IV 03/12/24 16:30 03/12/24 17:24 12.188 MLS/HR objective The patient is well-nourished and well-developed with no distress. The patient is intubated MENTAL STATUS: Subjective CRANIAL NERVES: Pupils are equal, round and slightly reactive, 2-3mm, the left side is slightly bigger. There was no associated ptosis, abnormal vascular dilatation and skin secretion. There are corneal reflexes and doll's eyes phenomenon. No signs of facial weakness. There are weak gagging or coughing reflexes SENSATION: Subjective MOTOR: Normal tone in the upper and lower extremity. Normal muscle bulk. No fasciculations. No spontaneous movement. REFLEXES: Deep tendon reflexes are symmetrical. No pathological reflexes. CEREBELLAR/COORDINATION: Deferred GAIT/STATION: deferred. laboratory and microbiology Laboratory Tests 03/12/24 03:10 Test 03/12/24 03:10 Range/Units Serum Glucose 145 H 74-106 mg/dL Problem List Altered mental status Hypoxic encephalopathy Metabolic encephalopathy Respiratory failure Hypertension emergency Respiratory acidosis Sepsis, ? Septic shock Pneumonia Cellulitis in the legs Stroke per the 1st CT, not confirmed by the 2nd CT head on 02/15/2024 Left ICA moderate stenosis Anisocoria, unclear clinical significance Assessment/Plan Monitoring Supportive treatments ICU care Stabilize vitals Respiratory support/vent management IV antibiotics Aspirin 81 mg daily Lipitor 40 mg daily DVT prophylaxis NG tube feeding Pulmonology on case Cardiology on case Social service on case Gradually wean off sedation as tolerated More recommendation per clinical course This medical document was created using an electronic medical record system with [employer] dictation system. Although this document has been carefully reviewed, there may still be some phonetic and typographical errors. These areas are purely typographical due to imperfections of the software programs, and do not reflect any compromise in the patient's medical care. Prognosis poor Dietary Evaluation Review Comments: 1) Recommend CCHO-60, Cardiac 2gNa LoFat LoCholesterol diet when medically feasible. 2) If GI accessible but PO feeding is not an option, consider glucerna 1.2 @45ml/hr. In 24 hrs, pt will be receiving 65g protein and 1296 kcal.Adj and increase infusion rate as tolerated. 3) If NPO > 7 days and GI is not accesible, consider TPN to support 75% of her energy and protein needs. Expected Outcomes/Goals: Gradual weight loss, improved glucose Plan discussed with: Other Critical Care Time(min): 30 TRAV CRUZ MD Mar 12, 2024 19:28
[2024-03-13] VITALS (116 sets, daily range): BP systolic 90–145; BP diastolic 43–76; PULSE 87–192; RESP 14–32; TEMP 98.6–99.3; O2SAT 95–100
[2024-03-13 03:54] LABS: Basophils # (auto) 0.1 10 ^3/uL (0-0.2); Basophils % (auto) 0.2 % (0.0-2.0); Eosinophils # (auto) 1.7 10 ^3/uL (0-0.8); Hemoglobin 10.2 g/dL (13.5-17.5); Lymphocytes # (auto) 1.4 10 ^3/uL (0.4-5.4); Lymphocytes % (auto) 6.5 % (10.0-50.0); Mean Corpuscular Hgb Conc. 32.9 g/dL (32.0-36.0); Mean Corpuscular Volume 88.1 fL (80.0-100.0); Monocytes # (auto) 0.7 10 ^3/uL (0-1.3); Monocytes % (auto) 3.1 % (0.0-12.0); Neutrophils # (auto) 17.8 10 ^3/uL (1.6-8.6); Neutrophils % (auto) 82.2 % (37.0-80.0); Platelet Count (auto) 282 10^3/uL (140-450); Red Blood Cells 3.52 10^6/uL (4.5-5.90); Red Cell Distribution Width 14.9 % (11.8-14.3); White Blood Cell 21.6 10^3/uL (4.4-10.8)
[2024-03-13 04:03] LABS: Anion Gap 19 (5-15); BUN/Creatinine Ratio 14.5 (10.0-20.0); Chloride 99 mmol/L (98-107); Sodium 137 mmol/L (136-145)
[2024-03-13 04:04] LABS: Bilirubin, Total 0.3 mg/dL (0.2-1.0)
--- NOTE | 2024-03-13 04:13 | DVH ---
CHEST RADIOGRAPH Indication: Intubated Technique: Single frontal view of the chest was obtained Comparison: XY CHEST XRAY 1 VIEW on DOS: 03/10/24, XY CHEST XRAY 1 VIEW on DOS: 03/09/24, XY CHEST XRAY 1 VIEW on DOS: 03/08/24 IMPRESSION: There are low lung volumes. Mild pulmonary vascular congestion. Patchy airspace opacity in the left lung base May relate to atelectasis versus infectious process. No sizable effusion or pneumothorax. T racheostomy tube, enteric tube, left dialysis catheter, and right PICC line appear unchanged in [employer] position.
[2024-03-13 04:46] LABS: Alanine Aminotransferase 47 U/L (7-40); Albumin 2.6 g/dL (3.2-4.8); Alkaline Phosphatase 176 U/L (46-116); Aspartate Aminotransferase 51 U/L (13-40); Carbon Dioxide 19 mmol/L (20-31); Glucose 152 mg/dL (74-106); Total Protein 5.6 g/dL (5.7-8.2)
[2024-03-13 04:47] LABS: Blood Urea Nitrogen 81 mg/dL (9-23)
[2024-03-13 07:48] LABS: Base Excess -8.9 mmol/L (-2.0-3.0)
--- NOTE | 2024-03-13 13:16 | DVHPN2 ---
Progress Note - Dictate Date Seen: Mar 13, 2024 Has the PT tested + for MRSA If YES, has PT been informed?: No Medical Necessity Reason Pt with a Central, PICC or Fol: Yes The following are medically ne: Central Line, Roblero Catheter Reason for roblero catheter: Strict I&O Subjective no significant overnight events, urine output minimal vital signs Vital Sign Date Time Temp Pulse Resp B/P (MAP) Pulse Ox O2 Delivery O2 Flow Rate FiO2 03/13/24 12:48 109 27 101/61 (74) 97 55 03/13/24 12:10 98.9 98.9 03/13/24 12:00 Mechanical Ventilator+ 03/13/24 10:00 55 Total Intake and Output 03/12/24 03/12/24 03/13/24 15:00 23:00 07:00 Intake Total 556.648 ml 396.968 ml 406.723 ml Output Total 50 ml 800 ml Balance 556.648 ml 346.968 ml -393.277 ml medications Current Medications Medications Dose Ordered Sig/Theodora Route Start Time Stop Time Status Last Admin Dose Admin Midazolam HCl 50 ml @ 1 mls/hr Q24H IV 02/11/24 09:15 02/20/24 17:30 1 MLS/HR Albuterol 2.5 mg Q8HR NEB 02/18/24 22:00 03/13/24 06:17 2.5 MG Diagnostic Test (Pha) 1 strip Q6HR 02/20/24 12:00 03/13/24 11:31 1 STRIP Insulin Human Regular Q6HR SC 02/20/24 12:00 03/13/24 11:37 3 UNITS Dextrose 50 ml UD PRN IV 02/20/24 08:45 Artificial Tears 1 drop Q4HR EACHEYE 02/24/24 16:00 03/13/24 10:16 1 DROP Aspirin 81 mg DAILY PO 02/25/24 10:00 03/12/24 07:36 81 MG Enteral Nutritional Formula 27.5 gm BIDWM GT 02/28/24 18:00 03/12/24 07:31 27.5 GM Heparin Sodium (Porcine) 5,000 units Q12HR SC 03/01/24 22:00 03/13/24 10:28 5,000 UNITS Metoclopramide HCl 10 mg Q8HR IV 03/05/24 14:00 03/13/24 06:41 10 MG Fentanyl Citrate 250 ml @ 2.5 mls/hr Q24H IV 03/05/24 22:45 03/12/24 18:36 5 MLS/HR Propofol 100 ml @ 3.39 mls/hr Q24H IV 03/06/24 22:15 03/13/24 01:28 6.78 MLS/HR Vancomycin HCl 0 ml @ 0 mls/hr UD IV 03/08/24 13:30 Fluconazole 100 ml @ 100 mls/hr DAILY IV 03/09/24 10:00 03/13/24 10:16 100 MLS/HR Enteral Nutritional Formula 1,000 ml 30ML/HR GT 03/08/24 17:30 03/12/24 22:40 1,000 ML Sodium Chloride 10 ml QSHIFT@10,22 IV 03/09/24 22:00 03/13/24 10:16 10 ML Meropenem 50 ml @ 17 mls/hr Q12HR IV 03/09/24 22:00 UNV Famotidine 20 mg Q12HR IV 03/10/24 22:00 03/13/24 10:15 20 MG Diphenhydramine HCl 25 mg Q8H IV 03/10/24 22:00 03/13/24 06:41 25 MG Vasopressin 20 units/Sodium Chloride 100 ml @ 9 mls/hr Q11H7M IV 03/11/24 11:30 03/11/24 11:30 9 MLS/HR Epinephrine HCl 250 ml @ 7.5 mls/hr Q24H IV 03/11/24 12:15 Norepinephrine Bitartrate 32 mg/ Dextrose 250 ml @ 0.234 mls/ hr Q24H IV 03/12/24 16:30 03/12/24 17:24 12.188 MLS/HR objective Gen: Intubated lungs: Rhonchi cvs: no rub ext: no edema laboratory and microbiology Laboratory Tests 03/13/24 03:32 Test 03/13/24 03:32 Range/Units Serum Glucose 152 H 74-106 mg/dL Assessment/Plan Problem List/Assessment/Plan Assessment/Plan Acute kidney injury likely ATN due to hypotension + vancotoxicity Acute CVA no previous ckd acute respiratory failure with ARDS septic shock due to PNA bradycardia hypervolemic recs - tentatively for dialysis later this evening or tomorrow morning - metabolic parameters acceptable today Dietary Evaluation Review Comments: 1) Recommend CCHO-60, Cardiac 2gNa LoFat LoCholesterol diet when medically feasible. 2) If GI accessible but PO feeding is not an option, consider glucerna 1.2 @45ml/hr. In 24 hrs, pt will be receiving 65g protein and 1296 kcal.Adj and increase infusion rate as tolerated. 3) If NPO > 7 days and GI is not accesible, consider TPN to support 75% of her energy and protein needs. Expected Outcomes/Goals: Gradual weight loss, improved glucose Plan discussed with: Other TAE COSTA MD Mar 13, 2024 13:16
[2024-03-13] MEDS: NOREPINEPHRINE BITARTRATE 32 MG in SODIUM CHL 0.9% 218 ML IV SCH (15:15)
--- NOTE | 2024-03-13 16:33 | DVHPN2 ---
Subjective Patient is 78-year-old male with unknown medical history of brought to the hospital via EMS for hypertension and found to be outside at convenience store . During further evaluation emergency department, patient was diagnosed with acute stroke due to ischemia and pneumonia. Later patient was intubated on put on ventilator for worsening respiratory distress, protect of airway with diagnosis of acute stroke, pneumonia and CHF exacerbation. Intubated and sedated with trach Reviewed: Care Plan, H&P, Labs, Medications, Previous Orders, Radiology, Other (Consultations) Changes from previous H/P or p: No Changes Objective Vitals Vital Signs Date Time Temp Pulse Resp B/P (MAP) Pulse Ox O2 Delivery O2 Flow Rate FiO2 03/13/24 16:25 111 29 113/61 (78) 97 03/13/24 16:00 Mechanical Ventilator+ 55 55 03/13/24 15:25 98.6 98.6 03/13/24 10:00 55 Intake/Output Intake and Output 03/13/24 05:00 Intake Total 1618.118 ml Output Total 595 ml Balance 1023.118 ml IV Total 1126.118 ml Tube Feeding 492 ml Output Urine Total 95 ml Stool Total 500 ml General Appearance: Other (Sedated and on mechanical ventilation via tracheostomy) HEENT: Other (Tracheostomy) Lungs: Other (Mechanical ventilation breathing sounds) Cardiovascular: Regular rate, Normal S1, Normal S2 Abdomen: Other (Hypoactive bowel sounds) Genitourinary: Other (Sanders's) Neuro: Other (Sedated) Psych/Mental Status: Other (Sedated) Other Physical Findings General Appearance: RASS -3, sedated and on ventilation. Head Exam: Normal inspection Neck Exam: Normal inspection. Non-tender. Normal alignment Pulmonary/Respiratory: Chest non-tender. bilateral crackles over bilateral lung lobes. Cardiovascular/Chest: Regular rate and rhythm. No murmurs. No JVD. Peripheral Pulses: 2+ Radial (R). 2+ Radial (L). 2+ Pedal (R). 2+ Pedal (L) Abdominal Exam: Normal bowel sounds. Soft. Nontender. No hepatospenomegaly. No masses, distended abdomin, no fluid thrill. Ankle Exam: Negative ankle edema Lower extremities: 2+ lower extremity edema Neuro/Mental Status: Appropriate pupillary reflex, other cranial nerve can not be assessed. Medications Current Medications Medications Dose Ordered Sig/Theodora Route Start Time Stop Time Status Last Admin Dose Admin Midazolam HCl 50 ml @ 1 mls/hr Q24H IV 02/11/24 09:15 02/20/24 17:30 1 MLS/HR Albuterol 2.5 mg Q8HR NEB 02/18/24 22:00 03/13/24 15:07 2.5 MG Diagnostic Test (Pha) 1 strip Q6HR 02/20/24 12:00 03/13/24 11:31 1 STRIP Insulin Human Regular Q6HR SC 02/20/24 12:00 03/13/24 11:37 3 UNITS Dextrose 50 ml UD PRN IV 02/20/24 08:45 Artificial Tears 1 drop Q4HR EACHEYE 02/24/24 16:00 03/13/24 14:44 1 DROP Aspirin 81 mg DAILY PO 02/25/24 10:00 03/12/24 07:36 81 MG Enteral Nutritional Formula 27.5 gm BIDWM GT 02/28/24 18:00 03/12/24 07:31 27.5 GM Heparin Sodium (Porcine) 5,000 units Q12HR SC 03/01/24 22:00 03/13/24 10:28 5,000 UNITS Metoclopramide HCl 10 mg Q8HR IV 03/05/24 14:00 03/13/24 14:44 10 MG Fentanyl Citrate 250 ml @ 2.5 mls/hr Q24H IV 03/05/24 22:45 03/12/24 18:36 5 MLS/HR Propofol 100 ml @ 3.39 mls/hr Q24H IV 03/06/24 22:15 03/13/24 01:28 6.78 MLS/HR Vancomycin HCl 0 ml @ 0 mls/hr UD IV 03/08/24 13:30 Fluconazole 100 ml @ 100 mls/hr DAILY IV 03/09/24 10:00 03/13/24 10:16 100 MLS/HR Enteral Nutritional Formula 1,000 ml 30ML/HR GT 03/08/24 17:30 03/12/24 22:40 1,000 ML Sodium Chloride 10 ml QSHIFT@10,22 IV 03/09/24 22:00 03/13/24 10:16 10 ML Meropenem 50 ml @ 17 mls/hr Q12HR IV 03/09/24 22:00 UNV Famotidine 20 mg Q12HR IV 03/10/24 22:00 03/13/24 10:15 20 MG Diphenhydramine HCl 25 mg Q8H IV 03/10/24 22:00 03/13/24 14:44 25 MG Vasopressin 20 units/Sodium Chloride 100 ml @ 9 mls/hr Q11H7M IV 03/11/24 11:30 03/11/24 11:30 9 MLS/HR Epinephrine HCl 250 ml @ 7.5 mls/hr Q24H IV 03/11/24 12:15 Norepinephrine Bitartrate 32 mg/ Sodium Chloride 250 ml @ 0.234 mls/ hr Q24H IV 03/13/24 15:15 Laboratory Results Laboratory Tests 03/13/24 03:32 Chemistry Test 03/13/24 03:32 Albumin 2.6 g/dL (3.2-4.8) L Calcium Level 9.0 mg/dL (8.7-10.4) Total Protein 5.6 g/dL (5.7-8.2) L LFT Test 03/13/24 03:32 Alanine Aminotransferase (ALT) 47 U/L (7-40) H Alkaline Phosphatase 176 U/L (46-116) H Aspartate Amino Transferase (AST) 51 U/L (13-40) H Total Bilirubin 0.3 mg/dL (0.2-1.0) Urinalysis Test 02/20/24 14:57 Urine Color Brown (Yellow) H Urine Clarity Ex.turbid (Clear) Urine pH 5.5 (5.0-9.0) Urine Specific [place] 1.014 (1.001-1.035) Urine Protein 2+ (Negative) H Urine Ketones Negative (Negative) Urine Blood 3+ /uL (Negative) H Urine Nitrite Negative (Negative) Urine Bilirubin Negative (Negative) Urine Urobilinogen Normal mg/dL (Negative) Urine Leukocyte Esterase 1+ /uL (Negative) Urine RBC 124 /hpf (0 - 3) Urine WBC 107 /hpf (0 - 3) Urine Squamous Epithelial Cells Few /hpf (<5) Urine Bacteria Few /hpf (None Seen) H Urine Mucus Few (None Seen) Urine Creatinine 85.51 mg/dL (30.0-125.0) Urine Sodium 15 mmol/L (40-220) L Urine Glucose Normal mg/dL (Normal) Blood Gas Results Test 03/13/24 07:36 Arterial Blood pH 7.320 (7.350-7.450) FiO2 % 55.0 Microbiology Microbiology Date/Time Source Procedure Growth Status 03/09/24 18:50 Catheter Tip Cvp Aerobic Culture - Final Klebsiella pneumoniae - ESBL Complete 03/08/24 14:42 Blood Blood Culture - Final NO GROWTH AFTER 5 DAYS OF INCUBATION. Complete 03/05/24 10:40 Bronchial Washings Gram Stain - Final Complete 03/05/24 10:40 Respiratory Culture - Final Methicillin Resistant S.aureus Complete 02/14/24 12:04 Urine - [place] Urine Culture - Final Complete Assessment/Plan Assessment/Plan NEUROLOGY : # Altered mental status Due to Hypoxic encephalopathy/ Metabolic encephalopathy # Stroke per the 1st CT, not confirmed by the 2nd CT head on 02/15/2024 - Patient is sedated -When stable: MRI of brain an -Continue Aspirin -continue Lipitor CARDIOVASCULAR : # Hypertension emergency - now patient is hypotensive - on vasopressor Levophed: Target map greater than 65. - hold lisinopril for now # Acute diastolic CHF - continue diuretics # Left ICA moderate stenosis: - Carotid Doppler shows 50-69% stenosis left paroxysmal ICA # Infrarenal aortic aneurysm:5.8 x 6.0 cm. - no intervention for now RESPIRATORY : # Acute hypoxic respiratory failure secondary to pneumonia and CHF exacerbation # Acute respiratory distress syndrome # Septic shock due to pneumonia # Left lower lobe pneumonia Gram-positive/Gram-negative # pneumonia due to MRSA # Emphysema # Pulmonary edema - continue vancomycin -started meropenem today -on ventilator: Patient has tracheostomy on 03/01/24, FiO2 35 %, peep 8. GASTROINTESTINAL : # Fatty liver -monitor liver function #Constipation - rectal tube placement GENITOURINARY : # Prostatomegaly: -on Sanders catheter # ESRD - nephrology consultation: Patient is on dialysis. INFECTIOUS DISEASE : # Cellulitis in the legs -continue antibiotics ENDOCRINE : # diabetes mellitus type 2 -hemoglobin A1c: 7.8 - continue sliding scale insulin - Monitor blood glucose level Skin: # Generalized skin rash the possible fungal infection - Continue fluconazole - Start Benadryl HEMATOLOGY : -leukocytosis due to pneumonia Metabolic: # Hyperkalemia - patient is on dialysis # obesity - dietary consult NUTRITION : -Glucerna PROPHYLAXIS FOR PUD : D/C Protonix 40 mg, Start Pepcid DVT PROPHYLAXIS : No anticoagulation for now as patient has bleeding Drips Fentanyl 150 Propofol 25 NE 24 Lines: Sanders catheter Endotracheal tube PICC line: 03/09/2024 Waiting for PEG tube placement to transfer patient to LTAC. Critical Care time spent 51 minutes including patient care, chart review and updating family, excluding procedure. Plan discussed with: Other (nurse) Date of Service: Mar 13, 2024 Billing Provider: DAMIEN CID MD Common Visit Codes: [id number] CARE 30-74 MIN DAMIEN CID MD Mar 13, 2024 16:33
--- NOTE | 2024-03-13 22:47 | DVHPN2 ---
Progress Note - Dictate Date Seen: Mar 13, 2024 Has the PT tested + for MRSA If YES, has PT been informed?: No Medical Necessity Reason Pt with a Central, PICC or Fol: Yes The following are medically ne: Central Line, Roblero Catheter Reason for roblero catheter: Strict I&O Subjective Patient seen and examined at bedside. S/p trach. Sedated, intubated on mechanical ventilator. Overnight events reviewed. vital signs Vital Sign Date Time Temp Pulse Resp B/P (MAP) Pulse Ox O2 Delivery O2 Flow Rate FiO2 03/13/24 22:12 108 30 114/66 (82) 98 55 03/13/24 22:00 Mechanical Ventilator+ 03/13/24 19:40 99.3 99.3 03/13/24 10:00 55 Total Intake and Output 03/12/24 03/12/24 03/13/24 15:00 23:00 07:00 Intake Total 556.648 ml 396.968 ml 406.723 ml Output Total 50 ml 800 ml Balance 556.648 ml 346.968 ml -393.277 ml medications Current Medications Medications Dose Ordered Sig/Theodora Route Start Time Stop Time Status Last Admin Dose Admin Midazolam HCl 50 ml @ 1 mls/hr Q24H IV 02/11/24 09:15 02/20/24 17:30 1 MLS/HR Albuterol 2.5 mg Q8HR NEB 02/18/24 22:00 03/13/24 22:11 2.5 MG Diagnostic Test (Pha) 1 strip Q6HR 02/20/24 12:00 03/13/24 17:08 1 STRIP Insulin Human Regular Q6HR SC 02/20/24 12:00 03/13/24 17:08 2 UNITS Dextrose 50 ml UD PRN IV 02/20/24 08:45 Artificial Tears 1 drop Q4HR EACHEYE 02/24/24 16:00 03/13/24 22:29 1 DROP Aspirin 81 mg DAILY PO 02/25/24 10:00 03/12/24 07:36 81 MG Enteral Nutritional Formula 27.5 gm BIDWM GT 02/28/24 18:00 03/12/24 07:31 27.5 GM Heparin Sodium (Porcine) 5,000 units Q12HR SC 03/01/24 22:00 03/13/24 10:28 5,000 UNITS Metoclopramide HCl 10 mg Q8HR IV 03/05/24 14:00 03/13/24 22:28 10 MG Fentanyl Citrate 250 ml @ 2.5 mls/hr Q24H IV 03/05/24 22:45 03/12/24 18:36 5 MLS/HR Vancomycin HCl 0 ml @ 0 mls/hr UD IV 03/08/24 13:30 Fluconazole 100 ml @ 100 mls/hr DAILY IV 03/09/24 10:00 03/13/24 10:16 100 MLS/HR Enteral Nutritional Formula 1,000 ml 30ML/HR GT 03/08/24 17:30 03/12/24 22:40 1,000 ML Sodium Chloride 10 ml QSHIFT@10,22 IV 03/09/24 22:00 03/13/24 22:29 10 ML Meropenem 50 ml @ 17 mls/hr Q12HR IV 03/09/24 22:00 UNV Famotidine 20 mg Q12HR IV 03/10/24 22:00 03/13/24 22:29 20 MG Diphenhydramine HCl 25 mg Q8H IV 03/10/24 22:00 03/13/24 22:29 25 MG Vasopressin 20 units/Sodium Chloride 100 ml @ 9 mls/hr Q11H7M IV 03/11/24 11:30 03/11/24 11:30 9 MLS/HR Epinephrine HCl 250 ml @ 7.5 mls/hr Q24H IV 03/11/24 12:15 Norepinephrine Bitartrate 32 mg/ Sodium Chloride 250 ml @ 0.234 mls/ hr Q24H IV 03/13/24 15:15 objective Gen.: Patient lying in bed in medical ICU. S/p trach. Sedated, intubated on mechanical ventilator. Head: Normocephalic, atraumatic. Eyes: PERRLA. Ears: Normal external anatomy. Throat: Endotracheal tube and orogastric tube in place. Neck: Trach in place. Chest: Transmitted breath sounds bilaterally. Decreased air entry bilaterally. No wheezing. Bibasilar crackles. Cardiovascular: Positive S1, positive S2. Regular rate and rhythm. Abdomen: Positive bowel sounds in all 4 quadrants. Soft, nontender, nondistended. : Roblero in place. Normal external genitalia. Rectal: Deferred. Skin: Warm, dry. Intact. Extremities: 2+ radial pulses bilaterally. No lower extremity edema. Neuro: Sedated. laboratory and microbiology Laboratory Tests 03/13/24 03:32 Test 03/13/24 03:32 Range/Units Serum Glucose 152 H 74-106 mg/dL Assessment/Plan Impression: Acute hypoxic respiratory failure secondary to pneumonia and CHF exacerbation Acute on chronic hypercarbic respiratory failure Acute respiratory distress syndrome On mechanical ventilator Pneumonia, likely Gram-negative CHF exacerbation Pulmonary edema Obesity with a BMI of 32.6 Acute stroke Events: Patient is s/p trach. Trach care ABG notable for acidemia. Continue support on vent Place on full vent support if any distress On assist control with a respiratory rate of 26, tidal volume 550, PEEP of 5, FiO2 at 55%. WBC of 21.6 K. Tube feeds for nutritional support Sedated on Propofol drip. On pressors (Levophed) for hemodynamic support Titrate to keep mean arterial pressure greater than 65 mmHg. CXR demonstrates mild pulmonary vascular congestion. Patchy airspace opacities in LLL. S/p bronchoscopy on 03/05/24. See separate procedure note for full details. Follow up bronchial washings and culture. Monitor renal function Monitor electrolytes. Supplement as necessary. HD per Nephrology LTAC eval Poor prognosis. Labs and imaging reviewed. Rest of plan as noted below. Plan: s/p trach On mechanical ventilator Continue support on vent Place on full vent support if any distress CT head notable for hypodense pretty 10 x 8 mm in size in the simon with the left side from strenuous for acute infarct. Chronic periventricular ischemic changes. Cerebral and cerebellar atrophy likely age-related. Recommend neurology evaluation. S/p bronchoscopy w/ bronchoalveolar lavage and central line placement on 02/22. Please see separate procedure note for details. S/p bronchoscopy with right middle lobe bronchoalveolar lavage on 02/15/24. See procedure note for details. On assist control with a respiratory rate of 26, tidal volume 550, PEEP of 5, FiO2 at 55%. Titrate FIO2 to keep O2 saturation above 92%. VAP bundle Daily ABG and CXR while intubated. Sedate for ventilator synchrony On pressors for hemodynamic support Titrate to keep mean arterial pressure greater than 65 mmHg. Continue antibiotics. F/u cultures. Diurese to euvolemia. Monitor ins/outs. On Lasix BID. Monitor renal function due to acute kidney injury. Monitor electrolytes. Supplement as necessary. Nutritional support. Accucheks, ISS. GI/DVT prophylaxis. Condition: Critical Prognosis: Poor given multiple comorbidities. Rest of plan per hospitalist and other consultants. A total of 35 minutes of critical care time was spent reviewing the patient record, examining the patient, making a diagnostic and therapeutic plan, discussing this plan with the medical personnel, following up on diagnostic studies and following the patient for clinical stability excluding any and all procedures. At least 50% of this time was spent in direct, [id number] contact. Thank you COURT OPERATIONS CLERK Nathanael for allowing me to participate in this patient's care. Further recommendations will depend on patient's clinical course. Please do not hesitate to contact me if you have any questions or concerns. This medical document was created using an electronic medical record system with [employer] system. Although this document has been carefully reviewed, there may still be some phonetic and typographical errors. These areas are purely typographical due to imperfections of the software programs, and do not reflect any compromise in the patient's medical care. Dietary Evaluation Review Comments: 1) Recommend CCHO-60, Cardiac 2gNa LoFat LoCholesterol diet when medically feasible. 2) If GI accessible but PO feeding is not an option, consider glucerna 1.2 @45ml/hr. In 24 hrs, pt will be receiving 65g protein and 1296 kcal.Adj and increase infusion rate as tolerated. 3) If NPO > 7 days and GI is not accesible, consider TPN to support 75% of her energy and protein needs. Expected Outcomes/Goals: Gradual weight loss, improved glucose Plan discussed with: Other (JESUS Ashraf) Critical Care Time(min): 35 ALEXANDER SCHWAB MD Mar 13, 2024 22:47
[2024-03-14] VITALS (139 sets, daily range): BP systolic 67–143; BP diastolic 35–68; PULSE 83–126; RESP 16–30; TEMP 98–99.7; O2SAT 94–100
[2024-03-14 04:26] LABS: Basophils # (auto) 0 10 ^3/uL (0-0.2); Basophils % (auto) 0.1 % (0.0-2.0); Eosinophils # (auto) 1.9 10 ^3/uL (0-0.8); Eosinophils % (auto) 8.5 % (0.0-7.0); Hematocrit 30.2 % (41.0-53.0); Hemoglobin 9.7 g/dL (13.5-17.5); Lymphocytes # (auto) 1.8 10 ^3/uL (0.4-5.4); Mean Corpuscular Hemoglobin 28.5 pg (28.0-32.0); Mean Corpuscular Hgb Conc. 32.2 g/dL (32.0-36.0); Mean Corpuscular Volume 88.5 fL (80.0-100.0); Monocytes # (auto) 0.8 10 ^3/uL (0-1.3); Monocytes % (auto) 3.6 % (0.0-12.0); Neutrophils % (auto) 79.8 % (37.0-80.0); Platelet Count (auto) 308 10^3/uL (140-450); Red Blood Cells 3.41 10^6/uL (4.5-5.90); White Blood Cell 22.5 10^3/uL (4.4-10.8)
[2024-03-14 04:46] LABS: Anion Gap 18 (5-15); Calcium 8.8 mg/dL (8.7-10.4); Carbon Dioxide 20 mmol/L (20-31); Chloride 100 mmol/L (98-107); INR 1.05 (0.9-1.15); Partial Thromboplastin Time 31.3 SEC (24.5-34.5); Potassium 4.1 mmol/L (3.5-5.1); Prothrombin Time 11.1 sec (9.3-11.8); Sodium 138 mmol/L (136-145)
[2024-03-14 04:47] LABS: Bilirubin, Total 0.3 mg/dL (0.2-1.0)
[2024-03-14 05:21] LABS: Alanine Aminotransferase 62 U/L (7-40); Albumin 2.5 g/dL (3.2-4.8); Alkaline Phosphatase 229 U/L (46-116); Aspartate Aminotransferase 87 U/L (13-40); Glucose 158 mg/dL (74-106); Total Protein 5.5 g/dL (5.7-8.2)
[2024-03-14 05:22] LABS: Blood Urea Nitrogen 93 mg/dL (9-23)
--- NOTE | 2024-03-14 06:11 | DVH ---
CHEST RADIOGRAPH Indication: intubation Technique: Single frontal view of the chest was obtained Comparison: XY CHEST XRAY 1 VIEW on DOS: 03/13/24, XY CHEST XRAY 1 VIEW on DOS: 03/10/24, XY CHEST XRAY 1 VIEW on DOS: 03/09/24, XY CHEST XRAY 1 VIEW on DOS: 03/08/24, XY CHEST PORTABLE on DOS: 03/07/24, XY CHEST XRAY 1 VIEW on DOS: 03/13/24 FINDINGS: There are low lung volumes. Mild pulmonary vascular congestion. Patchy airspace opacity in the left lung base May relate to atelectasis versus infectious process. No sizable effusion or pneumothorax. T racheostomy tube, enteric tube, left dialysis catheter, and right PICC line appear unchanged in [employer] position. IMPRESSION: There are low lung volumes. Mild pulmonary vascular congestion. Patchy airspace opacity in the left lung base May relate to atelectasis versus infectious process. No sizable effusion or pneumothorax. T racheostomy tube, enteric tube, left dialysis catheter, and right PICC line appear unchanged in [employer] position.
[2024-03-14 06:41] LABS: Base Excess -7.5 mmol/L (-2.0-3.0)
[2024-03-14] MEDS ORDERED: MIDAZOLAM HCL 2MG/2ML 2ml VIAL (1mg/ml) ONE (08:16)
[2024-03-14] MEDS ORDERED: fentaNYL CITRATE 100 MCG/2 ML VL ONE (08:16)
[2024-03-14] MEDS ORDERED: EPINEPHrine HCL 1 MG/10 ML SYRG ONE (08:19)
[2024-03-14] MEDS ORDERED: SODIUM CHL 0.9% 1000 ML BAG XX ONE (12:15)
--- NOTE | 2024-03-14 13:20 | DVHOP2 ---
Operative Report DATE OF PROCEDURE: 03/14/24 INDICATIONS FOR THE PROCEDURE: Malnutrition malnutrition feeding problem status post CPR and respiratory failure PROCEDURE PERFORMED: 1. Esophagogastroduodenoscopy and percutaneous endoscopic gastrostomy POSTOPERATIVE DIAGNOSIS: INFORMED CONSENT: The risks and benefits and alternatives were explained to the patient and informed consent was obtained. PROCEDURE IN DETAIL: The patient was kept NPO after midnight. In the ICU room, patient was on the ventilator and unresponsive no sedation had to be given . Olympus gastroscope was passed through the oropharynx into the stomach and the duodenum, and the findings were as follows. Esophagus: Normal Stomach: Fundus: Normal Body and antrum Mild gastritis Pylorus normal Duodenum Normal After the endoscopy was completed the scope was withdrawn into the stomach and at the point of maximum illumination a Seldinger needle was introduced. The knee The needle was withdrawn and through the cannula a guidewire was introduced which was held by a snare passed through the endoscopic biopsy channel The guidewire was removed through the oropharynx Over the guidewire the feeding gastrostomy tube was introduced and pulled from the anterior abdominal wall aspect to be to the anterior gastric wall and observed to be in good position and then anchored Patient tolerated the procedure extremely well post vital signs stable Endoscopic impression Status post respiratory failure malnutrition for feeding problem for long-term care as well as medication PEG tube placed Suggestions Start feeding slowly in 12 hours Watch for any complications Thank you for asking me to take part in the care of this pleasant patient With warm regards, VIJAY Henderson MD Mar 14, 2024 13:20
[2024-03-14] MEDS: VASOPRESSIN 20 UNITS in SODIUM CHL 0.9% 99 ML IV SCH (13:30)
[2024-03-14] MEDS: PHENYLEPHRINE IV 250 ML IV SCH (13:30)
--- NOTE | 2024-03-14 17:03 | DVHPN2 ---
Progress Note - Dictate Date Seen: Mar 14, 2024 Has the PT tested + for MRSA If YES, has PT been informed?: No Medical Necessity Reason Pt with a Central, PICC or Fol: Yes The following are medically ne: Central Line, Roblero Catheter Reason for roblero catheter: Strict I&O Subjective Patient seen earlier today, he was seen on dialysis. Her hemodialysis nurse there was a significant increase in vasopressor requirement. Ultrafiltration has been held vital signs Vital Sign Date Time Temp Pulse Resp B/P (MAP) Pulse Ox O2 Delivery O2 Flow Rate FiO2 03/14/24 16:24 99 28 112/57 (75) 95 03/14/24 16:09 99.0 99.0 03/14/24 16:00 Mechanical Ventilator+ 40 40 03/13/24 10:00 55 Total Intake and Output 03/13/24 03/13/24 03/14/24 15:00 23:00 07:00 Intake Total 234.846 ml 359.043 ml 458.142 ml Output Total 100 ml 120 ml Balance 234.846 ml 259.043 ml 338.142 ml medications Current Medications Medications Dose Ordered Sig/Theodora Route Start Time Stop Time Status Last Admin Dose Admin Midazolam HCl 50 ml @ 1 mls/hr Q24H IV 02/11/24 09:15 02/20/24 17:30 1 MLS/HR Albuterol 2.5 mg Q8HR NEB 02/18/24 22:00 03/14/24 14:05 2.5 MG Diagnostic Test (Pha) 1 strip Q6HR 02/20/24 12:00 03/14/24 11:13 1 STRIP Insulin Human Regular Q6HR SC 02/20/24 12:00 03/14/24 11:14 2 UNITS Dextrose 50 ml UD PRN IV 02/20/24 08:45 Artificial Tears 1 drop Q4HR EACHEYE 02/24/24 16:00 03/14/24 15:23 1 DROP Aspirin 81 mg DAILY PO 02/25/24 10:00 03/12/24 07:36 81 MG Enteral Nutritional Formula 27.5 gm BIDWM GT 02/28/24 18:00 03/12/24 07:31 27.5 GM Heparin Sodium (Porcine) 5,000 units Q12HR SC 03/01/24 22:00 03/13/24 10:28 5,000 UNITS Metoclopramide HCl 10 mg Q8HR IV 03/05/24 14:00 03/14/24 15:23 10 MG Fentanyl Citrate 250 ml @ 2.5 mls/hr Q24H IV 03/05/24 22:45 03/12/24 18:36 5 MLS/HR Vancomycin HCl 0 ml @ 0 mls/hr UD IV 03/08/24 13:30 Fluconazole 100 ml @ 100 mls/hr DAILY IV 03/09/24 10:00 03/14/24 09:07 100 MLS/HR Enteral Nutritional Formula 1,000 ml 30ML/HR GT 03/08/24 17:30 03/12/24 22:40 1,000 ML Sodium Chloride 10 ml QSHIFT@10,22 IV 03/09/24 22:00 03/14/24 09:07 10 ML Meropenem 50 ml @ 17 mls/hr Q12HR IV 03/09/24 22:00 UNV Famotidine 20 mg Q12HR IV 03/10/24 22:00 03/14/24 09:07 20 MG Diphenhydramine HCl 25 mg Q8H IV 03/10/24 22:00 03/14/24 15:23 25 MG Epinephrine HCl 250 ml @ 7.5 mls/hr Q24H IV 03/11/24 12:15 Norepinephrine Bitartrate 32 mg/ Sodium Chloride 250 ml @ 0.234 mls/ hr Q24H IV 03/13/24 15:15 03/14/24 11:19 10.313 MLS/HR Phenylephrine HCl 250 ml @ 30 mls/hr Q8H20M IV 03/14/24 13:30 Vasopressin 20 units/Sodium Chloride 100 ml @ 9 mls/hr Q11H7M IV 03/14/24 13:30 objective Gen: Intubated lungs: Rhonchi cvs: no rub ext: no edema laboratory and microbiology Laboratory Tests 03/14/24 03:41 Test 03/14/24 03:41 Range/Units Serum Glucose 158 H 74-106 mg/dL Assessment/Plan Problem List/Assessment/Plan Assessment/Plan Acute kidney injury likely ATN due to hypotension + vancotoxicity Acute CVA no previous ckd acute respiratory failure with ARDS septic shock due to PNA bradycardia hypervolemic recs - UF stopped due to significant hypotension with dialysis and increase in need for vasopressors - will continue to follow Dietary Evaluation Review Comments: 1) Recommend CCHO-60, Cardiac 2gNa LoFat LoCholesterol diet when medically feasible. 2) If GI accessible but PO feeding is not an option, consider glucerna 1.2 @45ml/hr. In 24 hrs, pt will be receiving 65g protein and 1296 kcal.Adj and increase infusion rate as tolerated. 3) If NPO > 7 days and GI is not accesible, consider TPN to support 75% of her energy and protein needs. Expected Outcomes/Goals: Gradual weight loss, improved glucose Plan discussed with: Other TAE COSTA MD Mar 14, 2024 17:03
[2024-03-14] MEDS: VANCOMYCIN 500mg/100mL 100 ML IV ONE (17:50)
--- NOTE | 2024-03-14 18:42 | DVHPN2 ---
Progress Note - Dictate Date Seen: Mar 14, 2024 Has the PT tested + for MRSA If YES, has PT been informed?: No Medical Necessity Reason Pt with a Central, PICC or Fol: Yes The following are medically ne: Central Line, Roblero Catheter Reason for roblero catheter: Strict I&O Subjective Mr. Glass is a 78 years old gentleman with a history of obesity, the patient was taken to the [facility] on 02/11/2024 with a chief company of elevated blood pressure. I have seen and examined the patient, I have discussed with his nurse, he was looks worse today, he was diffuse skin rashes. I see occasional blinking Left pupil is slightly bigger Fentanyl 75 mcg/hour, vasopressin 0.01 units/minute, levo 29 mcg/minute UDS, 02/11/2024: Negative Plasma alcohol, 02/11/2024: 3.4 Urinalysis, 02/11/2024: Unremarkable ABG, 02/11/2024: Respiratory acidosis CBC, 02/11/2024: Unremarkable BMP 02/11/2024: Unremarkable HCO3, 02/11/2024: 29, 02/12/2024, 33 Liver function tests, 02/12/2024: Normal HbA1c, 02/11/2024: 7.8 TG/Chol/LDL/LDL/HDL, 02/11/2024: 190/171/109/42 TSH, 02/11/2024: 4.29 EEG, 02/12/2024: Moderately abnormal EEG Carotid Doppler, 02/11/2024: Normal left ventricular size and dimension. Normal left ventricular systolic function estimated ejection fraction 60%. There is a grade 1 diastolic dysfunction. Normal right ventricular size and dimension. Normal right ventricular systolic function. Normal biatrial size and dimension. The aortic valve is thickened and sclerotic there is [id number] aortic valve stenosis with a peak gradient of33 and mean gradient of 18 mm of mercury. The mitral valve is mildly thickened there is mild mitral valve regurgitation. There is mild tricuspid valve regurgitation. The pulmonary valve is grossly normal. No pericardial effusion. Carotid Doppler, 02/11/2024: 1. 50-69% stenosis at the level of the left proximal ICA. 2. No hemodynamically significant stenosis noted in the right carotid system. Chest x-ray, 02/11/2024: Lines and tubes in appropriate position. Cardiomegaly with small left pleural effusion and diffuse interstitial opacities which may reflect pulmonary edema CT head, 02/11/2024: 1. Well-defined hypodensity of approximate size 10 x 8 mm in the simon on the left side, concerning for acute infarct. 2. Chronic periventricular ischemic changes. 3. Cerebral and cerebellar atrophy, likely age-related. 4. Chronic and / or ancillary findings as described above. 5. Advised further evaluation with MRI brain without contrast. CT head, 02/15/2024: 1. No acute intracranial process. 2. Moderate acute pansinusitis. CT head, 03/12/2024: 1. No acute intracranial process. 2. Paranasal sinus disease as described above vital signs Vital Sign Date Time Temp Pulse Resp B/P (MAP) Pulse Ox O2 Delivery O2 Flow Rate FiO2 03/14/24 17:55 143/67 03/14/24 17:24 92 26 95 03/14/24 16:09 99.0 99.0 03/14/24 16:00 Mechanical Ventilator+ 40 40 03/13/24 10:00 55 Total Intake and Output 03/13/24 03/13/24 03/14/24 15:00 23:00 07:00 Intake Total 234.846 ml 359.043 ml 458.142 ml Output Total 100 ml 120 ml Balance 234.846 ml 259.043 ml 338.142 ml medications Current Medications Medications Dose Ordered Sig/Theodora Route Start Time Stop Time Status Last Admin Dose Admin Midazolam HCl 50 ml @ 1 mls/hr Q24H IV 02/11/24 09:15 02/20/24 17:30 1 MLS/HR Albuterol 2.5 mg Q8HR NEB 02/18/24 22:00 03/14/24 14:05 2.5 MG Diagnostic Test (Pha) 1 strip Q6HR 02/20/24 12:00 03/14/24 17:49 1 STRIP Insulin Human Regular Q6HR SC 02/20/24 12:00 03/14/24 11:14 2 UNITS Dextrose 50 ml UD PRN IV 02/20/24 08:45 Artificial Tears 1 drop Q4HR EACHEYE 02/24/24 16:00 03/14/24 17:53 1 DROP Aspirin 81 mg DAILY PO 02/25/24 10:00 03/12/24 07:36 81 MG Enteral Nutritional Formula 27.5 gm BIDWM GT 02/28/24 18:00 03/12/24 07:31 27.5 GM Heparin Sodium (Porcine) 5,000 units Q12HR SC 03/01/24 22:00 03/13/24 10:28 5,000 UNITS Metoclopramide HCl 10 mg Q8HR IV 03/05/24 14:00 03/14/24 15:23 10 MG Fentanyl Citrate 250 ml @ 2.5 mls/hr Q24H IV 03/05/24 22:45 03/12/24 18:36 5 MLS/HR Vancomycin HCl 0 ml @ 0 mls/hr UD IV 03/08/24 13:30 Fluconazole 100 ml @ 100 mls/hr DAILY IV 03/09/24 10:00 03/14/24 09:07 100 MLS/HR Enteral Nutritional Formula 1,000 ml 30ML/HR GT 03/08/24 17:30 03/12/24 22:40 1,000 ML Sodium Chloride 10 ml QSHIFT@10,22 IV 03/09/24 22:00 03/14/24 09:07 10 ML Meropenem 50 ml @ 17 mls/hr Q12HR IV 03/09/24 22:00 UNV Famotidine 20 mg Q12HR IV 03/10/24 22:00 03/14/24 09:07 20 MG Diphenhydramine HCl 25 mg Q8H IV 03/10/24 22:00 03/14/24 15:23 25 MG Epinephrine HCl 250 ml @ 7.5 mls/hr Q24H IV 03/11/24 12:15 Norepinephrine Bitartrate 32 mg/ Sodium Chloride 250 ml @ 0.234 mls/ hr Q24H IV 03/13/24 15:15 03/14/24 11:19 10.313 MLS/HR Phenylephrine HCl 250 ml @ 30 mls/hr Q8H20M IV 03/14/24 13:30 Vasopressin 20 units/Sodium Chloride 100 ml @ 9 mls/hr Q11H7M IV 03/14/24 13:30 objective The patient is well-nourished and well-developed with no distress. The patient is intubated MENTAL STATUS: Subjective CRANIAL NERVES: Pupils are equal, round and slightly reactive, 2-3mm, the left side is slightly bigger. There was no associated ptosis, abnormal vascular dilatation and skin secretion. There are corneal reflexes and doll's eyes phenomenon. No signs of facial weakness. There are weak gagging or coughing reflexes SENSATION: Subjective MOTOR: Normal tone in the upper and lower extremity. Normal muscle bulk. No fasciculations. No spontaneous movement. REFLEXES: Deep tendon reflexes are symmetrical. No pathological reflexes. CEREBELLAR/COORDINATION: Deferred GAIT/STATION: deferred. laboratory and microbiology Laboratory Tests 03/14/24 03:41 Test 03/14/24 03:41 Range/Units Serum Glucose 158 H 74-106 mg/dL Problem List Altered mental status Hypoxic encephalopathy Metabolic encephalopathy Respiratory failure, status post tracheostomy Hypertension emergency Respiratory acidosis Sepsis, ? Septic shock Pneumonia Cellulitis in the legs Stroke per the 1st CT, not confirmed by the 2nd CT head on 02/15/2024 Left ICA moderate stenosis Anisocoria, unclear clinical significance Status post PEG feeding tube, 03/14/2024 Assessment/Plan Monitoring Supportive treatments ICU care Stabilize vitals Respiratory support/vent management IV antibiotics Aspirin 81 mg daily Lipitor 40 mg daily DVT prophylaxis NG tube feeding Pulmonology on case Cardiology on case Social service on case Gradually wean off sedation as tolerated More recommendation per clinical course This medical document was created using an electronic medical record system with [employer] computerized dictation system. Although this document has been carefully reviewed, there may still be some phonetic and typographical errors. These areas are purely typographical due to imperfections of the software programs, and do not reflect any compromise in the patient's medical care. Prognosis guarded Dietary Evaluation Review Comments: 1) Recommend CCHO-60, Cardiac 2gNa LoFat LoCholesterol diet when medically feasible. 2) If GI accessible but PO feeding is not an option, consider glucerna 1.2 @45ml/hr. In 24 hrs, pt will be receiving 65g protein and 1296 kcal.Adj and increase infusion rate as tolerated. 3) If NPO > 7 days and GI is not accesible, consider TPN to support 75% of her energy and protein needs. Expected Outcomes/Goals: Gradual weight loss, improved glucose Plan discussed with: Other TRAV CRUZ MD Mar 14, 2024 18:42
--- NOTE | 2024-03-14 19:59 | DVHPN2 ---
Progress Note - Dictate Date Seen: Mar 14, 2024 Has the PT tested + for MRSA If YES, has PT been informed?: No Medical Necessity Reason Pt with a Central, PICC or Fol: Yes The following are medically ne: Central Line, Roblero Catheter Reason for roblero catheter: Strict I&O Subjective Patient seen and examined at bedside. S/p trach. Sedated, intubated on mechanical ventilator. Overnight events reviewed. vital signs Vital Sign Date Time Temp Pulse Resp B/P (MAP) Pulse Ox O2 Delivery O2 Flow Rate FiO2 03/14/24 18:39 98 26 123/59 (80) 96 03/14/24 18:00 55 03/14/24 18:00 Mechanical Ventilator+ 03/14/24 16:09 99.0 99.0 03/13/24 10:00 55 Total Intake and Output 03/13/24 03/13/24 03/14/24 15:00 23:00 07:00 Intake Total 234.846 ml 359.043 ml 458.142 ml Output Total 100 ml 120 ml Balance 234.846 ml 259.043 ml 338.142 ml medications Current Medications Medications Dose Ordered Sig/Theodora Route Start Time Stop Time Status Last Admin Dose Admin Midazolam HCl 50 ml @ 1 mls/hr Q24H IV 02/11/24 09:15 02/20/24 17:30 1 MLS/HR Albuterol 2.5 mg Q8HR NEB 02/18/24 22:00 03/14/24 14:05 2.5 MG Diagnostic Test (Pha) 1 strip Q6HR 02/20/24 12:00 03/14/24 17:49 1 STRIP Insulin Human Regular Q6HR SC 02/20/24 12:00 03/14/24 11:14 2 UNITS Dextrose 50 ml UD PRN IV 02/20/24 08:45 Artificial Tears 1 drop Q4HR EACHEYE 02/24/24 16:00 03/14/24 17:53 1 DROP Aspirin 81 mg DAILY PO 02/25/24 10:00 03/12/24 07:36 81 MG Enteral Nutritional Formula 27.5 gm BIDWM GT 02/28/24 18:00 03/12/24 07:31 27.5 GM Heparin Sodium (Porcine) 5,000 units Q12HR SC 03/01/24 22:00 03/13/24 10:28 5,000 UNITS Metoclopramide HCl 10 mg Q8HR IV 03/05/24 14:00 03/14/24 15:23 10 MG Fentanyl Citrate 250 ml @ 2.5 mls/hr Q24H IV 03/05/24 22:45 03/12/24 18:36 5 MLS/HR Vancomycin HCl 0 ml @ 0 mls/hr UD IV 03/08/24 13:30 Fluconazole 100 ml @ 100 mls/hr DAILY IV 03/09/24 10:00 03/14/24 09:07 100 MLS/HR Enteral Nutritional Formula 1,000 ml 30ML/HR GT 03/08/24 17:30 03/12/24 22:40 1,000 ML Sodium Chloride 10 ml QSHIFT@10,22 IV 03/09/24 22:00 03/14/24 09:07 10 ML Meropenem 50 ml @ 17 mls/hr Q12HR IV 03/09/24 22:00 UNV Famotidine 20 mg Q12HR IV 03/10/24 22:00 03/14/24 09:07 20 MG Diphenhydramine HCl 25 mg Q8H IV 03/10/24 22:00 03/14/24 15:23 25 MG Epinephrine HCl 250 ml @ 7.5 mls/hr Q24H IV 03/11/24 12:15 Norepinephrine Bitartrate 32 mg/ Sodium Chloride 250 ml @ 0.234 mls/ hr Q24H IV 03/13/24 15:15 03/14/24 11:19 10.313 MLS/HR Phenylephrine HCl 250 ml @ 30 mls/hr Q8H20M IV 03/14/24 13:30 Vasopressin 20 units/Sodium Chloride 100 ml @ 9 mls/hr Q11H7M IV 03/14/24 13:30 objective Gen.: Patient lying in bed in medical ICU. S/p trach. Sedated, intubated on mechanical ventilator. Head: Normocephalic, atraumatic. Eyes: PERRLA. Ears: Normal external anatomy. Throat: Endotracheal tube and orogastric tube in place. Neck: Trach in place. Chest: Transmitted breath sounds bilaterally. Decreased air entry bilaterally. No wheezing. Bibasilar crackles. Cardiovascular: Positive S1, positive S2. Regular rate and rhythm. Abdomen: Positive bowel sounds in all 4 quadrants. Soft, nontender, nondistended. : Roblero in place. Normal external genitalia. Rectal: Deferred. Skin: Warm, dry. Intact. Extremities: 2+ radial pulses bilaterally. No lower extremity edema. Neuro: Sedated. laboratory and microbiology Laboratory Tests 03/14/24 03:41 Test 03/14/24 03:41 Range/Units Serum Glucose 158 H 74-106 mg/dL Assessment/Plan Impression: Acute hypoxic respiratory failure secondary to pneumonia and CHF exacerbation Acute on chronic hypercarbic respiratory failure Acute respiratory distress syndrome On mechanical ventilator Pneumonia, likely Gram-negative CHF exacerbation Pulmonary edema Obesity with a BMI of 32.6 Acute stroke Events: Vent support On assist control with a respiratory rate of 26, tidal volume 550, PEEP of 5, FiO2 improved to 45% (down from 55%). ABG reviewed, notable for acidemia. PEG today by GI. On multiple pressors for hemodynamic support On Levophed 28 mcg/min, vasopressin 0.03 units/min. Titrate to keep mean arterial pressure greater than 65 mmHg. Sedated on Fentanyl. Taper sedation as tolerated. F/u Neurology recommendations. S/p trach. Trach care Continue antibiotics/antifungal Send ear discharge for cultures. WBC of 22.5 K. S/p hemodialysis today w/ removal of 1 liter. Tube feeds for nutritional support Monitor renal function Monitor electrolytes. Supplement as necessary. HD per Nephrology LTAC eval Poor prognosis. S/p bronchoscopy on 03/05/24. See separate procedure note for full details. Labs and imaging reviewed. Rest of plan as noted below. Plan: s/p trach On mechanical ventilator Continue support on vent Place on full vent support if any distress CT head notable for hypodense pretty 10 x 8 mm in size in the simon with the left side from strenuous for acute infarct. Chronic periventricular ischemic changes. Cerebral and cerebellar atrophy likely age-related. Recommend neurology evaluation. S/p bronchoscopy w/ bronchoalveolar lavage and central line placement on 02/22. Please see separate procedure note for details. S/p bronchoscopy with right middle lobe bronchoalveolar lavage on 02/15/24. See procedure note for details. On assist control with a respiratory rate of 26, tidal volume 550, PEEP of 5, FiO2 at 45%. Titrate FIO2 to keep O2 saturation above 92%. VAP bundle Daily ABG and CXR while intubated. Sedate for ventilator synchrony On multiple pressors for hemodynamic support Titrate to keep mean arterial pressure greater than 65 mmHg. Continue antibiotics. F/u cultures. Maintain euvolemia. Monitor ins/outs. On Lasix BID. Monitor renal function due to acute kidney injury. Monitor electrolytes. Supplement as necessary. Nutritional support. Accucheks, ISS. GI/DVT prophylaxis. Condition: Critical Prognosis: Poor given multiple comorbidities. Rest of plan per hospitalist and other consultants. A total of 35 minutes of critical care time was spent reviewing the patient record, examining the patient, making a diagnostic and therapeutic plan, discussing this plan with the medical personnel, following up on diagnostic studies and following the patient for clinical stability excluding any and all procedures. At least 50% of this time was spent in direct, [id number] contact. Thank you GIORGI Huffman for allowing me to participate in this patient's care. Further recommendations will depend on patient's clinical course. Please do not hesitate to contact me if you have any questions or concerns. This medical document was created using an electronic medical record system with [employer] dictation system. Although this document has been carefully reviewed, there may still be some phonetic and typographical errors. These areas are purely typographical due to imperfections of the software programs, and do not reflect any compromise in the patient's medical care. Dietary Evaluation Review Comments: 1) Recommend CCHO-60, Cardiac 2gNa LoFat LoCholesterol diet when medically feasible. 2) If GI accessible but PO feeding is not an option, consider glucerna 1.2 @45ml/hr. In 24 hrs, pt will be receiving 65g protein and 1296 kcal.Adj and increase infusion rate as tolerated. 3) If NPO > 7 days and GI is not accesible, consider TPN to support 75% of her energy and protein needs. Expected Outcomes/Goals: Gradual weight loss, improved glucose Plan discussed with: Other (JESUS Ashraf) Critical Care Time(min): 35 ALEXANDER SCHWAB MD Mar 14, 2024 19:59
--- NOTE | 2024-03-14 21:01 | DVHPN2 ---
Subjective Patient is 78-year-old male with unknown medical history of brought to the hospital via EMS for hypertension and found to be outside at convenience store . During further evaluation emergency department, patient was diagnosed with acute stroke due to ischemia and pneumonia. Later patient was intubated on put on ventilator for worsening respiratory distress, protect of airway with diagnosis of acute stroke, pneumonia and CHF exacerbation. Intubated and sedated with trach Reviewed: Care Plan, H&P, Labs, Medications, Previous Orders, Radiology, Other (Consultations) Changes from previous H/P or p: No Changes Objective Vitals Vital Signs Date Time Temp Pulse Resp B/P (MAP) Pulse Ox O2 Delivery O2 Flow Rate FiO2 03/14/24 18:39 98 26 123/59 (80) 96 03/14/24 18:00 55 03/14/24 18:00 Mechanical Ventilator+ 03/14/24 16:09 99.0 99.0 03/13/24 10:00 55 Intake/Output Intake and Output 03/14/24 05:00 Intake Total 964.312 ml Output Total 900 ml Balance 64.312 ml IV Total 504.312 ml Tube Feeding 460 ml Output Urine Total 600 ml Stool Total 300 ml General Appearance: Other (Sedated and on mechanical ventilation via tracheostomy) HEENT: Other (Tracheostomy) Lungs: Other (Mechanical ventilation breathing sounds) Cardiovascular: Regular rate, Normal S1, Normal S2 Abdomen: Other (Hypoactive bowel sounds) Genitourinary: Other (Sanders's) Neuro: Other (Sedated) Psych/Mental Status: Other (Sedated) Other Physical Findings General Appearance: RASS -3, sedated and on ventilation. Head Exam: Normal inspection Neck Exam: Normal inspection. Non-tender. Normal alignment Pulmonary/Respiratory: Chest non-tender. bilateral crackles over bilateral lung lobes. Cardiovascular/Chest: Regular rate and rhythm. No murmurs. No JVD. Peripheral Pulses: 2+ Radial (R). 2+ Radial (L). 2+ Pedal (R). 2+ Pedal (L) Abdominal Exam: Normal bowel sounds. Soft. Nontender. No hepatospenomegaly. No masses, distended abdomin, no fluid thrill. Ankle Exam: Negative ankle edema Lower extremities: 2+ lower extremity edema Neuro/Mental Status: Appropriate pupillary reflex, other cranial nerve can not be assessed. Medications Current Medications Medications Dose Ordered Sig/Theodora Route Start Time Stop Time Status Last Admin Dose Admin Midazolam HCl 50 ml @ 1 mls/hr Q24H IV 02/11/24 09:15 02/20/24 17:30 1 MLS/HR Albuterol 2.5 mg Q8HR NEB 02/18/24 22:00 03/14/24 14:05 2.5 MG Diagnostic Test (Pha) 1 strip Q6HR 02/20/24 12:00 03/14/24 17:49 1 STRIP Insulin Human Regular Q6HR SC 02/20/24 12:00 03/14/24 11:14 2 UNITS Dextrose 50 ml UD PRN IV 02/20/24 08:45 Artificial Tears 1 drop Q4HR EACHEYE 02/24/24 16:00 03/14/24 17:53 1 DROP Aspirin 81 mg DAILY PO 02/25/24 10:00 03/12/24 07:36 81 MG Enteral Nutritional Formula 27.5 gm BIDWM GT 02/28/24 18:00 03/12/24 07:31 27.5 GM Heparin Sodium (Porcine) 5,000 units Q12HR SC 03/01/24 22:00 03/13/24 10:28 5,000 UNITS Metoclopramide HCl 10 mg Q8HR IV 03/05/24 14:00 03/14/24 15:23 10 MG Fentanyl Citrate 250 ml @ 2.5 mls/hr Q24H IV 03/05/24 22:45 03/12/24 18:36 5 MLS/HR Vancomycin HCl 0 ml @ 0 mls/hr UD IV 03/08/24 13:30 Fluconazole 100 ml @ 100 mls/hr DAILY IV 03/09/24 10:00 03/14/24 09:07 100 MLS/HR Enteral Nutritional Formula 1,000 ml 30ML/HR GT 03/08/24 17:30 03/12/24 22:40 1,000 ML Sodium Chloride 10 ml QSHIFT@10,22 IV 03/09/24 22:00 03/14/24 09:07 10 ML Meropenem 50 ml @ 17 mls/hr Q12HR IV 03/09/24 22:00 UNV Famotidine 20 mg Q12HR IV 03/10/24 22:00 03/14/24 09:07 20 MG Diphenhydramine HCl 25 mg Q8H IV 03/10/24 22:00 03/14/24 15:23 25 MG Epinephrine HCl 250 ml @ 7.5 mls/hr Q24H IV 03/11/24 12:15 Norepinephrine Bitartrate 32 mg/ Sodium Chloride 250 ml @ 0.234 mls/ hr Q24H IV 03/13/24 15:15 03/14/24 11:19 10.313 MLS/HR Phenylephrine HCl 250 ml @ 30 mls/hr Q8H20M IV 03/14/24 13:30 Vasopressin 20 units/Sodium Chloride 100 ml @ 9 mls/hr Q11H7M IV 03/14/24 13:30 Laboratory Results Laboratory Tests 03/14/24 03:41 Chemistry Test 03/14/24 03:41 Albumin 2.5 g/dL (3.2-4.8) L Calcium Level 8.8 mg/dL (8.7-10.4) Total Protein 5.5 g/dL (5.7-8.2) L Coagulation Test 03/14/24 03:41 Prothrombin Time 11.1 sec (9.3-11.8) Prothrombin Time INR 1.05 (0.9-1.15) Activated Partial Thromboplast Time 31.3 SEC (24.5-34.5) LFT Test 03/14/24 03:41 Alanine Aminotransferase (ALT) 62 U/L (7-40) H Alkaline Phosphatase 229 U/L (46-116) H Aspartate Amino Transferase (AST) 87 U/L (13-40) H Total Bilirubin 0.3 mg/dL (0.2-1.0) Urinalysis Test 02/20/24 14:57 Urine Color Brown (Yellow) H Urine Clarity Ex.turbid (Clear) Urine pH 5.5 (5.0-9.0) Urine Specific [place] 1.014 (1.001-1.035) Urine Protein 2+ (Negative) H Urine Ketones Negative (Negative) Urine Blood 3+ /uL (Negative) H Urine Nitrite Negative (Negative) Urine Bilirubin Negative (Negative) Urine Urobilinogen Normal mg/dL (Negative) Urine Leukocyte Esterase 1+ /uL (Negative) Urine RBC 124 /hpf (0 - 3) Urine WBC 107 /hpf (0 - 3) Urine Squamous Epithelial Cells Few /hpf (<5) Urine Bacteria Few /hpf (None Seen) H Urine Mucus Few (None Seen) Urine Creatinine 85.51 mg/dL (30.0-125.0) Urine Sodium 15 mmol/L (40-220) L Urine Glucose Normal mg/dL (Normal) Blood Gas Results Test 03/14/24 06:29 Arterial Blood pH 7.318 (7.350-7.450) FiO2 % 55.0 Microbiology Microbiology Date/Time Source Procedure Growth Status 03/09/24 18:50 Catheter Tip Cvp Aerobic Culture - Final Klebsiella pneumoniae - ESBL Complete 03/08/24 14:42 Blood Blood Culture - Final NO GROWTH AFTER 5 DAYS OF INCUBATION. Complete 03/05/24 10:40 Bronchial Washings Gram Stain - Final Complete 03/05/24 10:40 Respiratory Culture - Final Methicillin Resistant S.aureus Complete 02/14/24 12:04 Urine - [place] Urine Culture - Final Complete Assessment/Plan Assessment/Plan NEUROLOGY : # Altered mental status Due to Hypoxic encephalopathy/ Metabolic encephalopathy # Stroke per the 1st CT, not confirmed by the 2nd CT head on 02/15/2024 - Patient is sedated -When stable: MRI of brain an -Continue Aspirin -continue Lipitor CARDIOVASCULAR : # Hypertension emergency - now patient is hypotensive - on vasopressor Levophed: Target map greater than 65. - hold lisinopril for now # Acute diastolic CHF - continue diuretics # Left ICA moderate stenosis: - Carotid Doppler shows 50-69% stenosis left paroxysmal ICA # Infrarenal aortic aneurysm:5.8 x 6.0 cm. - no intervention for now RESPIRATORY : # Acute hypoxic respiratory failure secondary to pneumonia and CHF exacerbation # Acute respiratory distress syndrome # Septic shock due to pneumonia # Left lower lobe pneumonia Gram-positive/Gram-negative # pneumonia due to MRSA # Emphysema # Pulmonary edema - continue vancomycin -started meropenem today -on ventilator: Patient has tracheostomy on 03/01/24, FiO2 35 %, peep 8. GASTROINTESTINAL : # Fatty liver -monitor liver function #Constipation - rectal tube placement GENITOURINARY : # Prostatomegaly: -on Sanders catheter # ESRD - nephrology consultation: Patient is on dialysis. INFECTIOUS DISEASE : # Cellulitis in the legs -continue antibiotics ENDOCRINE : # diabetes mellitus type 2 -hemoglobin A1c: 7.8 - continue sliding scale insulin - Monitor blood glucose level Skin: # Generalized skin rash the possible fungal infection - Continue fluconazole - Start Benadryl HEMATOLOGY : -leukocytosis due to pneumonia Metabolic: # Hyperkalemia - patient is on dialysis # obesity - dietary consult NUTRITION : -Glucerna PROPHYLAXIS FOR PUD : D/C Protonix 40 mg, Start Pepcid DVT PROPHYLAXIS : No anticoagulation for now as patient has bleeding Drips Fentanyl 150 Propofol 25 NE 24 Lines: Sanders catheter Endotracheal tube PICC line: 03/09/2024 Waiting for PEG tube placement to transfer patient to LTAC. Critical Care time spent 51 minutes including patient care, chart review and updating family, excluding procedure. Plan discussed with: Other (nurse) My Orders Orders - DAMIEN CID MD Procedure Category Date Status Time * Wound Consult CONS 03/14/24 Transmitted Phenylephrine Iv PHA 03/14/24 In Process (Phenylephrine/Ns) 13:30 Sodium Chl 0.9% PHA 03/14/24 In Process (So... W/Vasopressin 13:30 Date of Service: Mar 14, 2024 Billing Provider: DAMIEN CID MD Common Visit Codes: [id number] CARE 30-74 MIN DAMIEN CID MD Mar 14, 2024 21:01
[2024-03-15] VITALS (72 sets, daily range): BP systolic 89–140; BP diastolic 38–65; PULSE 76–122; RESP 15–30; TEMP 98.4–99.1; O2SAT 93–100
[2024-03-15 04:31] LABS: Basophils # (auto) 0 10 ^3/uL (0-0.2); Basophils % (auto) 0.2 % (0.0-2.0); Eosinophils # (auto) 1.7 10 ^3/uL (0-0.8); Eosinophils % (auto) 7.5 % (0.0-7.0); Hematocrit 30.8 % (41.0-53.0); Hemoglobin 9.9 g/dL (13.5-17.5); Lymphocytes # (auto) 1.7 10 ^3/uL (0.4-5.4); Lymphocytes % (auto) 7.6 % (10.0-50.0); Mean Corpuscular Hemoglobin 28.8 pg (28.0-32.0); Mean Corpuscular Hgb Conc. 32.3 g/dL (32.0-36.0); Mean Corpuscular Volume 89.1 fL (80.0-100.0); Monocytes # (auto) 1.4 10 ^3/uL (0-1.3); Monocytes % (auto) 6.3 % (0.0-12.0); Neutrophils # (auto) 17.9 10 ^3/uL (1.6-8.6); Neutrophils % (auto) 78.4 % (37.0-80.0); Nucleated Red Blood Cells % 0.1 %; Platelet Count (auto) 315 10^3/uL (140-450); Red Blood Cells 3.45 10^6/uL (4.5-5.90); Red Cell Distribution Width 15.1 % (11.8-14.3); White Blood Cell 22.8 10^3/uL (4.4-10.8)
--- NOTE | 2024-03-15 05:02 | DVH ---
CHEST RADIOGRAPH Indication: ARF Trach Technique: Single frontal view of the chest was obtained COMPARISON: XY CHEST PORTABLE on DOS: 03/14/24, XY CHEST XRAY 1 VIEW on DOS: 03/13/24, XY CHEST XRAY 1 VIEW on DOS: 03/10/24 FINDINGS: Lines and Tubes: Tracheostomy, left and right central venous catheter is in satisfactory position. Lungs: Multifocal airspace disease. Pleura: No effusion. No pneumothorax. Cardiomediastinal contours: Cardiomegaly Bones: Unremarkable IMPRESSION: Lines and tubes in satisfactory position. No significant interval change.
[2024-03-15 07:22] LABS: Base Excess -10.2 mmol/L (-2.0-3.0)
--- NOTE | 2024-03-15 08:47 | DVHPNRES ---
Progress Note Date Seen: Mar 15, 2024 Resident Creating Document: RIAZ KIDD RESIDENT Has the PT tested + for MRSA If YES, has PT been informed?: No Medical Necessity Reason Pt with a Central, PICC or Fol: Yes The following are medically ne: Central Line, Roblero Catheter Reason for roblero catheter: Strict I&O Subjective Review of Systems Patient is 78-year-old male with unknown medical history of brought to the hospital via EMS for hypertension and found to be outside at convenience store . During further evaluation emergency department, patient was diagnosed with acute stroke due to ischemia and pneumonia. Later patient was intubated on put on ventilator for worsening respiratory distress, protect of airway with diagnosis of acute stroke, pneumonia and CHF exacerbation. Past medical history: Unknown Past surgical history: Unknown Patient seen and examined in ICU. Patient is currently on ventilator. CT head on : There is no evidence of acute intracranial hemorrhage, mass, mass effect midline shift. There is no hydrocephalus or extra-axial fluid collection. Messina-white matter differentiation is maintained. There is mucosal thickening in the ethmoid and right maxillary sinus. There is likely inspissated contents filling the sphenoid sinuses. There is opacification of the bilateral mastoid air cells. The calvarium is intact. Objective vital signs Vital Sign Date Time Temp Pulse Resp B/P (MAP) Pulse Ox O2 Delivery O2 Flow Rate FiO2 03/15/24 06:42 93 26 111/41 (64) 97 40 03/15/24 06:23 Mechanical Ventilator+ 03/15/24 03:54 99.0 99.0 03/13/24 10:00 55 Total Intake and Output 03/14/24 03/14/24 03/15/24 15:00 23:00 07:00 Intake Total 283.778 ml 156.968 ml 151.001 ml Output Total 210 ml 105 ml Balance 283.778 ml -53.032 ml 46.001 ml medications Current Medications Medications Dose Ordered Sig/Theodora Route Start Time Stop Time Status Last Admin Dose Admin Midazolam HCl 50 ml @ 1 mls/hr Q24H IV 02/11/24 09:15 02/20/24 17:30 1 MLS/HR Albuterol 2.5 mg Q8HR NEB 02/18/24 22:00 03/15/24 06:42 2.5 MG Diagnostic Test (Pha) 1 strip Q6HR 02/20/24 12:00 03/15/24 06:00 1 STRIP Insulin Human Regular Q6HR SC 02/20/24 12:00 03/14/24 11:14 2 UNITS Dextrose 50 ml UD PRN IV 02/20/24 08:45 Artificial Tears 1 drop Q4HR EACHEYE 02/24/24 16:00 03/15/24 06:36 1 DROP Aspirin 81 mg DAILY PO 02/25/24 10:00 03/12/24 07:36 81 MG Enteral Nutritional Formula 27.5 gm BIDWM GT 02/28/24 18:00 03/12/24 07:31 27.5 GM Heparin Sodium (Porcine) 5,000 units Q12HR SC 03/01/24 22:00 03/14/24 22:00 5,000 UNITS Metoclopramide HCl 10 mg Q8HR IV 03/05/24 14:00 03/15/24 06:33 10 MG Fentanyl Citrate 250 ml @ 2.5 mls/hr Q24H IV 03/05/24 22:45 03/15/24 03:06 5 MLS/HR Vancomycin HCl 0 ml @ 0 mls/hr UD IV 03/08/24 13:30 Fluconazole 100 ml @ 100 mls/hr DAILY IV 03/09/24 10:00 03/14/24 09:07 100 MLS/HR Enteral Nutritional Formula 1,000 ml 30ML/HR GT 03/08/24 17:30 03/15/24 03:55 1,000 ML Sodium Chloride 10 ml QSHIFT@10,22 IV 03/09/24 22:00 03/14/24 21:59 10 ML Meropenem 50 ml @ 17 mls/hr Q12HR IV 03/09/24 22:00 UNV Famotidine 20 mg Q12HR IV 03/10/24 22:00 03/14/24 21:42 20 MG Diphenhydramine HCl 25 mg Q8H IV 03/10/24 22:00 03/15/24 06:36 25 MG Epinephrine HCl 250 ml @ 7.5 mls/hr Q24H IV 03/11/24 12:15 Norepinephrine Bitartrate 32 mg/ Sodium Chloride 250 ml @ 0.234 mls/ hr Q24H IV 03/13/24 15:15 03/15/24 07:34 12.188 MLS/HR Phenylephrine HCl 250 ml @ 30 mls/hr Q8H20M IV 03/14/24 13:30 Vasopressin 20 units/Sodium Chloride 100 ml @ 9 mls/hr Q11H7M IV 03/14/24 13:30 Examination General: RASS -3, afebrile, mucosae are moist Cardiovascular: Normal S1 and S2. No murmurs, gallops or rubs Respiratory: Mechanically assisted ventilation, equal bilateral airway entree. Abdomen: Soft, nontender, no organomegaly, normal bowel sounds MSK/skin: Mobilization of limbs cannot be evaluated. Neurological: Orientation cannot be assessed. No apparent motor no sensitive deficits. Pupils are isocoric and reactive. laboratory and microbiology Laboratory Tests 03/15/24 03:45 03/14/24 03:41 Test 03/14/24 03:41 Range/Units Serum Glucose 158 H 74-106 mg/dL Microbiology Date/Time Source Procedure Growth Status 03/09/24 18:50 Catheter Tip Cvp Aerobic Culture - Final Klebsiella pneumoniae - ESBL Complete 03/08/24 14:42 Blood Blood Culture - Final NO GROWTH AFTER 5 DAYS OF INCUBATION. Complete 03/05/24 10:40 Bronchial Washings Gram Stain - Final Complete 03/05/24 10:40 Respiratory Culture - Final Methicillin Resistant S.aureus Complete 02/14/24 12:04 Urine - Roblero Port Urine Culture - Final Complete Problem List/Assessment/Plan Problem List/Assessment/Plan NEUROLOGY : # Altered mental status Due to Hypoxic encephalopathy/ Metabolic encephalopathy # Stroke per the 1st CT, not confirmed by the 2nd CT head on 02/15/[address] head on - Patient is sedated - CT head on : There is no evidence of acute intracranial hemorrhage, mass, mass effect midline shift. There is no hydrocephalus or extra-axial fluid collection. Messina-white matter differentiation is maintained. There is mucosal thickening in the ethmoid and right maxillary sinus. There is likely inspissated contents filling the sphenoid sinuses. There is opacification of the bilateral mastoid air cells. The calvarium is intact. - CT head on : notable for hypodense pretty 10 x 8 mm in size in the simon with the left side from strenuous for acute infarct. Chronic periventricular ischemic changes. Cerebral and cerebellar atrophy likely age- related. - neurology on board CARDIOVASCULAR : # Hypertension emergency - now patient is hypotensive - on vasopressor Levophed: Target map greater than 65. - hold lisinopril for now # Acute diastolic CHF - continue diuretics # Left ICA moderate stenosis: - Carotid Doppler shows 50-69% stenosis left paroxysmal ICA # Infrarenal aortic aneurysm:5.8 x 6.0 cm. - no intervention for now RESPIRATORY : # Acute hypoxic respiratory failure secondary to pneumonia and CHF exacerbation # Acute respiratory distress syndrome # Septic shock due to pneumonia # Left lower lobe pneumonia Gram-positive/Gram-negative # pneumonia due to MRSA # Emphysema # Pulmonary edema - continue vancomycin -started meropenem today -on ventilator: Patient has tracheostomy on 03/01/24, FiO2 35 %, peep 8. GASTROINTESTINAL : # Fatty liver -monitor liver function #Constipation - rectal tube placement GENITOURINARY : # Prostatomegaly: -on Roblero catheter # ESRD - nephrology consultation: Patient is on dialysis. INFECTIOUS DISEASE : # Cellulitis in the legs -continue antibiotics ENDOCRINE : # diabetes mellitus type 2 -hemoglobin A1c: 7.8 - continue sliding scale insulin - Monitor blood glucose level Skin: # Generalized skin rash the possible fungal infection - Continue fluconazole - Continue Benadryl HEMATOLOGY : -leukocytosis due to pneumonia Metabolic: # Hyperkalemia - patient is on dialysis # obesity - dietary consult NUTRITION : -Glucerna PROPHYLAXIS FOR PUD : D/C Protonix 40 mg, Start Pepcid DVT PROPHYLAXIS : No anticoagulation for now as patient has bleeding Drips Fentanyl 150 Propofol 25 NE 24 Lines: Roblero catheter Endotracheal tube PICC line: 03/09/2024 Ordered MRI, Pending Critical Care time spent 46 minutes including patient care, chart review, excluding procedure. Plan discussed with Dr. Larsen Dietary Evaluation Review Comments: 1) Recommend CCHO-60, Cardiac 2gNa LoFat LoCholesterol diet when medically feasible. 2) If GI accessible but PO feeding is not an option, consider glucerna 1.2 @45ml/hr. In 24 hrs, pt will be receiving 65g protein and 1296 kcal.Adj and increase infusion rate as tolerated. 3) If NPO > 7 days and GI is not accesible, consider TPN to support 75% of her energy and protein needs. Expected Outcomes/Goals: Gradual weight loss, improved glucose RIAZ KIDD RESIDENT Mar 15, 2024 08:47
--- NOTE | 2024-03-15 10:42 | DVHPN2 ---
Progress Note - Dictate Date Seen: Mar 15, 2024 Has the PT tested + for MRSA If YES, has PT been informed?: No Medical Necessity Reason Pt with a Central, PICC or Fol: Yes The following are medically ne: Central Line, Roblero Catheter Reason for roblero catheter: Strict I&O Subjective Mr. Glass is a 78 years old gentleman with a history of obesity, the patient was taken to the [facility] on 02/11/2024 with a chief company of elevated blood pressure. I have seen and examined the patient, I have discussed with his nurse and Dr. Larsen, he does not look any better, he was diffuse skin rashes and blisters. Left pupil is slightly bigger Fentanyl 50 mcg/hour, levo 26 mcg/minute UDS, 02/11/2024: Negative Plasma alcohol, 02/11/2024: 3.4 Urinalysis, 02/11/2024: Unremarkable ABG, 02/11/2024: Respiratory acidosis CBC, 02/11/2024: Unremarkable BMP 02/11/2024: Unremarkable HCO3, 02/11/2024: 29, 02/12/2024, 33 Liver function tests, 02/12/2024: Normal HbA1c, 02/11/2024: 7.8 TG/Chol/LDL/LDL/HDL, 02/11/2024: 190/171/109/42 TSH, 02/11/2024: 4.29 EEG, 02/12/2024: Moderately abnormal EEG Carotid Doppler, 02/11/2024: Normal left ventricular size and dimension. Normal left ventricular systolic function estimated ejection fraction 60%. There is a grade 1 diastolic dysfunction. Normal right ventricular size and dimension. Normal right ventricular systolic function. Normal biatrial size and dimension. The aortic valve is thickened and sclerotic there is [id number] aortic valve stenosis with a peak gradient of33 and mean gradient of 18 mm of mercury. The mitral valve is mildly thickened there is mild mitral valve regurgitation. There is mild tricuspid valve regurgitation. The pulmonary valve is grossly normal. No pericardial effusion. Carotid Doppler, 02/11/2024: 1. 50-69% stenosis at the level of the left proximal ICA. 2. No hemodynamically significant stenosis noted in the right carotid system. Chest x-ray, 02/11/2024: Lines and tubes in appropriate position. Cardiomegaly with small left pleural effusion and diffuse interstitial opacities which may reflect pulmonary edema CT head, 02/11/2024: 1. Well-defined hypodensity of approximate size 10 x 8 mm in the simon on the left side, concerning for acute infarct. 2. Chronic periventricular ischemic changes. 3. Cerebral and cerebellar atrophy, likely age-related. 4. Chronic and / or ancillary findings as described above. 5. Advised further evaluation with MRI brain without contrast. CT head, 02/15/2024: 1. No acute intracranial process. 2. Moderate acute pansinusitis. CT head, 03/12/2024: 1. No acute intracranial process. 2. Paranasal sinus disease as described above vital signs Vital Sign Date Time Temp Pulse Resp B/P (MAP) Pulse Ox O2 Delivery O2 Flow Rate FiO2 03/15/24 10:24 88 26 109/57 (74) 98 03/15/24 08:25 40 03/15/24 08:09 99.1 99.1 03/15/24 08:00 Mechanical Ventilator+ 03/13/24 10:00 55 Total Intake and Output 03/14/24 03/14/24 03/15/24 15:00 23:00 07:00 Intake Total 283.778 ml 156.968 ml 151.001 ml Output Total 210 ml 105 ml Balance 283.778 ml -53.032 ml 46.001 ml medications Current Medications Medications Dose Ordered Sig/Theodora Route Start Time Stop Time Status Last Admin Dose Admin Midazolam HCl 50 ml @ 1 mls/hr Q24H IV 02/11/24 09:15 02/20/24 17:30 1 MLS/HR Albuterol 2.5 mg Q8HR NEB 02/18/24 22:00 03/15/24 06:42 2.5 MG Diagnostic Test (Pha) 1 strip Q6HR 02/20/24 12:00 03/15/24 06:00 1 STRIP Insulin Human Regular Q6HR SC 02/20/24 12:00 03/14/24 11:14 2 UNITS Dextrose 50 ml UD PRN IV 02/20/24 08:45 Artificial Tears 1 drop Q4HR EACHEYE 02/24/24 16:00 03/15/24 09:54 1 DROP Aspirin 81 mg DAILY PO 02/25/24 10:00 03/12/24 07:36 81 MG Enteral Nutritional Formula 27.5 gm BIDWM GT 02/28/24 18:00 03/12/24 07:31 27.5 GM Heparin Sodium (Porcine) 5,000 units Q12HR SC 03/01/24 22:00 03/14/24 22:00 5,000 UNITS Metoclopramide HCl 10 mg Q8HR IV 03/05/24 14:00 03/15/24 06:33 10 MG Fentanyl Citrate 250 ml @ 2.5 mls/hr Q24H IV 03/05/24 22:45 03/15/24 03:06 5 MLS/HR Vancomycin HCl 0 ml @ 0 mls/hr UD IV 03/08/24 13:30 Fluconazole 100 ml @ 100 mls/hr DAILY IV 03/09/24 10:00 03/15/24 09:54 100 MLS/HR Enteral Nutritional Formula 1,000 ml 30ML/HR GT 03/08/24 17:30 03/15/24 03:55 1,000 ML Sodium Chloride 10 ml QSHIFT@10,22 IV 03/09/24 22:00 03/15/24 09:54 10 ML Meropenem 50 ml @ 17 mls/hr Q12HR IV 03/09/24 22:00 UNV Famotidine 20 mg Q12HR IV 03/10/24 22:00 03/15/24 09:54 20 MG Diphenhydramine HCl 25 mg Q8H IV 03/10/24 22:00 03/15/24 06:36 25 MG Epinephrine HCl 250 ml @ 7.5 mls/hr Q24H IV 03/11/24 12:15 Norepinephrine Bitartrate 32 mg/ Sodium Chloride 250 ml @ 0.234 mls/ hr Q24H IV 03/13/24 15:15 03/15/24 07:34 12.188 MLS/HR Phenylephrine HCl 250 ml @ 30 mls/hr Q8H20M IV 03/14/24 13:30 Vasopressin 20 units/Sodium Chloride 100 ml @ 9 mls/hr Q11H7M IV 03/14/24 13:30 objective The patient is well-nourished and well-developed with no distress. MENTAL STATUS: Subjective CRANIAL NERVES: Pupils are equal, round and slightly reactive, 2 mm, the left side is slightly bigger. There was no associated ptosis, abnormal vascular dilatation and skin secretion. There are corneal reflexes and doll's eyes phenomenon. No signs of facial weakness. There are weak gagging or coughing reflexes SENSATION: Subjective MOTOR: Normal tone in the upper and lower extremity. Normal muscle bulk. No fasciculations. No spontaneous movement. REFLEXES: Deep tendon reflexes are symmetrical. No pathological reflexes. CEREBELLAR/COORDINATION: Deferred GAIT/STATION: deferred. laboratory and microbiology Laboratory Tests 03/15/24 03:45 03/14/24 03:41 Test 03/14/24 03:41 Range/Units Serum Glucose 158 H 74-106 mg/dL Problem List Altered mental status Hypoxic encephalopathy Metabolic encephalopathy Respiratory failure, status post tracheostomy Hypertension emergency Respiratory acidosis Sepsis, ? Septic shock Pneumonia Cellulitis in the legs Barrera Giovanny syndrome Stroke per the 1st CT, not confirmed by the 2nd CT head on 02/15/2024 Left ICA moderate stenosis Anisocoria, unclear clinical significance Status post PEG feeding tube, 03/14/2024 Assessment/Plan Monitoring Supportive treatments ICU care Stabilize vitals Respiratory support/vent management IV antibiotics Aspirin 81 mg daily Lipitor 40 mg daily DVT prophylaxis NG tube feeding Pulmonology on case Cardiology on case Social service on case Gradually wean off sedation as tolerated More recommendation per clinical course The patient was like to have poor prognosis, I agree considering comfort care This medical document was created using an electronic medical record system with [employer] dictation system. Although this document has been carefully reviewed, there may still be some phonetic and typographical errors. These areas are purely typographical due to imperfections of the software programs, and do not reflect any compromise in the patient's medical care. Prognosis guarded Dietary Evaluation Review Comments: 1) Recommend CCHO-60, Cardiac 2gNa LoFat LoCholesterol diet when medically feasible. 2) If GI accessible but PO feeding is not an option, consider glucerna 1.2 @45ml/hr. In 24 hrs, pt will be receiving 65g protein and 1296 kcal.Adj and increase infusion rate as tolerated. 3) If NPO > 7 days and GI is not accesible, consider TPN to support 75% of her energy and protein needs. Expected Outcomes/Goals: Gradual weight loss, improved glucose Plan discussed with: Other Critical Care Time(min): 35 TRAV CRUZ MD Mar 15, 2024 10:42
[2024-03-15] MEDS: MORPHINE SULFATE INJ 2 MG/ml SYRG IV PRN (14:11)
[2024-03-15] MEDS: LORazepam 2MG/ML-1ML VIAL IV PRN (14:12)
[2024-03-15] MEDS: MORPHINE SULFATE 4 MG/ML SYR/VIAL ONE (14:41)
[2024-03-15] MEDS: MORPHINE SULFATE 4 MG/ML SYR/VIAL IV ONE (14:41)
[2024-03-15] MEDS ORDERED: LORazepam 2MG/ML-1ML VIAL IV PRN (14:45)
--- NOTE | 2024-03-15 16:33 | DVHDSRES ---
Discharge Summary Date of Admission Resident Creating Document: RIAZ KIDD RESIDENT Feb 11, 2024 at 10:04 Date of Discharge: Mar 15, 2024 Admitting Diagnosis Respiratory failure Metabolic encephalopathy. Labs/Diagnostic Data: Laboratory Results Test 03/15/24 11:06 03/15/24 07:14 03/15/24 03:45 03/14/24 06:29 POC Glucose 140 mg/dl (70-106) Blood Gas Specimen Type Arterial Blood Gas Sample Site Left radial Blood Gas Patient Temperature 37.0 Arterial Blood Date Drawn [id number] Arterial Blood pH 7.283 (7.350-7.450) Arterial Blood Partial Pressure CO2 33.4 mmHg (35.0-48.0) Arterial Blood Partial Pressure O2 74.5 mmHg (83.0-108.0) Arterial Blood HCO3 15.4 mmol/L (21.0-28.0) Arterial Blood Oxygen Saturation 91.8 % (94.0-98.0) Arterial Blood Base Excess -10.2 mmol/L (-2.0-3.0) Arterial Blood Oxyhemoglobin 90.3 % (94.0-98.0) Arterial Blood Carboxyhemoglobin 1.3 % (0.5-1.5) Arterial Blood Methemoglobin 0.3 % (0.0-1.5) Rashaun Test Modified Blood Gas Total Hemoglobin 13.20 g/dL (13.5-17.5) Blood Gas Set Respiration Rate 26.0 Blood Gas Modality Vent - ac FiO2 % 40.0 Blood Gas Tidal Volume 550.0 Blood Gas PEEP or CPAP 5.0 White Blood Count 22.8 10^3/uL (4.4-10.8) Red Blood Count 3.45 10^6/uL (4.5-5.90) Hemoglobin 9.9 g/dL (13.5-17.5) Hematocrit 30.8 % (41.0-53.0) Mean Corpuscular Volume 89.1 fL (80.0-100.0) Mean Corpuscular Hemoglobin 28.8 pg (28.0-32.0) Mean Corpuscular Hemoglobin Concent 32.3 g/dL (32.0-36.0) Red Cell Distribution Width 15.1 % (11.8-14.3) Platelet Count 315 10^3/uL (140-450) Mean Platelet Volume 7.4 fL (6.9-10.8) Neutrophils (%) (Auto) 78.4 % (37.0-80.0) Lymphocytes (%) (Auto) 7.6 % (10.0-50.0) Monocytes (%) (Auto) 6.3 % (0.0-12.0) Eosinophils (%) (Auto) 7.5 % (0.0-7.0) Basophils (%) (Auto) 0.2 % (0.0-2.0) Neutrophils # (Auto) 17.9 10 ^3/uL (1.6-8.6) Lymphocytes # (Auto) 1.7 10 ^3/uL (0.4-5.4) Monocytes # (Auto) 1.4 10 ^3/uL (0-1.3) Eosinophils # (Auto) 1.7 10 ^3/uL (0-0.8) Basophils # (Auto) 0 10 ^3/uL (0-0.2) Nucleated Red Blood Cells 0.1 % Creatinine 5.53 mg/dL (0.700-1.30) Glomerular Filtration Rate Calc 10 mL/min (>90) Random Vancomycin Level 19.2 ug/mL (5-10) Blood Gas Spontaneous Rate 29 Blood Gas Inspiratory Pressure 27.0 Bl Gas Inspiratory/Expiratory Ratio 1:1.0 Specimen Drawn By kristalyde rt Test 03/14/24 03:41 03/12/24 07:11 03/09/24 03:30 03/08/24 05:02 Prothrombin Time 11.1 sec (9.3-11.8) Prothrombin Time INR 1.05 (0.9-1.15) Activated Partial Thromboplast Time 31.3 SEC (24.5-34.5) Sodium Level 138 mmol/L (136-145) Potassium Level 4.1 mmol/L (3.5-5.1) Chloride Level 100 mmol/L (98-107) Carbon Dioxide Level 20 mmol/L (20-31) Anion Gap 18 (5-15) Blood Urea Nitrogen 93 mg/dL (9-23) BUN/Creatinine Ratio 15.0 (10.0-20.0) Serum Glucose 158 mg/dL (74-106) Calcium Level 8.8 mg/dL (8.7-10.4) Total Bilirubin 0.3 mg/dL (0.2-1.0) Aspartate Amino Transferase (AST) 87 U/L (13-40) Alanine Aminotransferase (ALT) 62 U/L (7-40) Alkaline Phosphatase 229 U/L (46-116) Total Protein 5.5 g/dL (5.7-8.2) Albumin 2.5 g/dL (3.2-4.8) Blood Gas Liter Flow 5.00 Differential Total Cells Counted 100.0 (100) Neutrophils % (Manual) 71 (37.0-80.0) Band Neutrophils % (Manual) 0 Lymphocytes % (Manual) 8 (10.0-50.0) Monocytes % (Manual) 10 (0-12) Eosinophils % (Manual) 8 (0-7) Basophils % (Manual) 0 (0.0-2.0) Metamyelocytes % (manual) 1 Myelocytes % (Manual) 2 Promyelocytes % (Manual) 0 Blast Cells % (Manual) 0 Reactive Lymphocytes 0 Platelet Estimate Adequate Magnesium Level 2.7 mg/dL (1.6-2.6) Test 03/03/24 05:10 02/29/24 06:25 02/28/24 03:30 02/27/24 03:15 Red Blood Cell Morphology Normal Blood Gas Critical Value Read Back Yes Blood Gas Notified Whom aubrey Canales md Blood Gas Notified Time [id number] Blood Gas Notified By Employment Law Attorney suzette hannon Smudge Cells 2 /100 WBC Clumped Platelets Few Test 02/25/24 13:34 02/24/24 03:00 02/20/24 14:57 02/19/24 18:09 Hepatitis B Surface Antigen Negative (Negative) B-Type Natriuretic Peptide 956.11 pg/mL (0-100) Urine Color Brown (Yellow) Urine Clarity Ex.turbid (Clear) Urine pH 5.5 (5.0-9.0) Urine Specific Braxton 1.014 (1.001-1.035) Urine Protein 2+ (Negative) Urine Ketones Negative (Negative) Urine Blood 3+ /uL (Negative) Urine Nitrite Negative (Negative) Urine Bilirubin Negative (Negative) Urine Urobilinogen Normal mg/dL (Negative) Urine Leukocyte Esterase 1+ /uL (Negative) Urine RBC 124 /hpf (0 - 3) Urine WBC 107 /hpf (0 - 3) Urine Squamous Epithelial Cells Few /hpf (<5) Urine Bacteria Few /hpf (None Seen) Urine Mucus Few (None Seen) Urine Creatinine 85.51 mg/dL (30.0-125.0) Urine Sodium 15 mmol/L (40-220) Urine Glucose Normal mg/dL (Normal) Vancomycin Level Trough 37.4 ug/mL (5-10) Test 02/19/24 11:44 02/18/24 19:50 02/16/24 13:00 02/16/24 08:20 HIV (1&2) Antibody Negative (Negative) Blood Gas Spontaneous Tidal Volume 570 Influenza Type A Antigen Negative (Negative) Influenza Type B Antigen Negative (Negative) SARS-CoV-2 Antigen (Rapid) Negative (NEGATIVE) Phosphorus Level 3.1 mg/dL (2.4-5.1) Test 02/11/24 15:03 02/11/24 08:30 02/11/24 05:10 02/11/24 02:19 D-Dimer, Quantitative 1.70 mg/L FEU (0.0-0.49) Ammonia 14 umol/L (11-32) Plasma/Serum Blood Alcohol 3.4 mg/dL (<10) Urine Opiates Screen Neg (NEGATIVE) Urine Fentanyl Screen Neg (NEGATIVE) Urine Barbiturates Screen Neg (NEGATIVE) Urine Phencyclidine Screen Neg (NEGATIVE) Urine Amphetamines Screen Neg (NEGATIVE) Urine Benzodiazepines Screen Neg (NEGATIVE) Urine Cocaine Screen Neg (NEGATIVE) Urine Cannabinoids Screen Neg (NEGATIVE) Lactic Acid Level 1.1 mmol/L (0.4-2.0) Hemoglobin A1c 7.8 % A1C (<5.7) Troponin I High Sensitivity 5 ng/L (</=54) Triglycerides Level 190 mg/dL (< 150) Cholesterol Level 171 mg/dL (< 200) LDL Cholesterol 109 mg/dL (< 100) HDL Cholesterol 42 mg/dL (40-59) Thyroid Stimulating Hormone (TSH) 4.29 uIU/mL (0.55-4.78) Other Laboratory Tests 03/15/24 03:45 03/14/24 03:41 Condition at Discharge: Poor Discharge Disposition: at Hospital Discharge Statement: "Patient was advised to return to the ER or call 911 if any headaches, dizziness, shortness of breath, chest pain, abdominal pain, bleeding, fevers, or worsening of medical condition. Patient was counseled about treatment plan, medications, possible side effects, patientverbalized understanding. All questions were answered to the best of my ability. This discharge took greater then 30 minutes in planning, reviewing documentation, counseling the patient, and discussing with other team members." ASSESSMENT ASSESSMENT Assessment RIAZ KIDD RESIDENT Mar 15, 2024 16:33
== END 2024-03-15 17:30 | DRG 4 ==
LOC: EDBD 01:06 → ER 01:06 → TELE 10:04 → ICU WEST 10:04
PROVIDERS: ADMIT Internal Medicine; ATTEND Emergency Medicine
PROC: 5A1955Z Respiratory Ventilation, Greater than 96 Consecutive Hours (ICD-10-PCS; principal; 2024-02-11)
PROC: 0BH18EZ Insertion of Endotracheal Airway into Trachea, Via Natural or Artificial Opening Endoscopic (ICD-10-PCS; 2024-02-11)
PROC: 0B9D8ZX Drainage of Right Middle Lung Lobe, Via Natural or Artificial Opening Endoscopic, Diagnostic (ICD-10-PCS; 2024-02-15)
PROC: 0BC78ZZ Extirpation of Matter from Left Main Bronchus, Via Natural or Artificial Opening Endoscopic (ICD-10-PCS; 2024-02-15)
PROC: 0B9B8ZZ Drainage of Left Lower Lobe Bronchus, Via Natural or Artificial Opening Endoscopic (ICD-10-PCS; 2024-02-18)
PROC: 0B9B8ZZ Drainage of Left Lower Lobe Bronchus, Via Natural or Artificial Opening Endoscopic (ICD-10-PCS; 2024-02-19)
PROC: 0B9D8ZX Drainage of Right Middle Lung Lobe, Via Natural or Artificial Opening Endoscopic, Diagnostic (ICD-10-PCS; 2024-02-23)
PROC: 02HV33Z Insertion of Infusion Device into Superior Vena Cava, Percutaneous Approach (ICD-10-PCS; 2024-02-23)
PROC: B548ZZA Ultrasonography of Superior Vena Cava, Guidance (ICD-10-PCS; 2024-02-23)
PROC: 0BC78ZZ Extirpation of Matter from Left Main Bronchus, Via Natural or Artificial Opening Endoscopic (ICD-10-PCS; 2024-02-23)
PROC: 0BC38ZZ Extirpation of Matter from Right Main Bronchus, Via Natural or Artificial Opening Endoscopic (ICD-10-PCS; 2024-02-23)
PROC: 5A1D70Z Performance of Urinary Filtration, Intermittent, Less than 6 Hours Per Day (ICD-10-PCS; 2024-02-24)
PROC: 5A1D70Z Performance of Urinary Filtration, Intermittent, Less than 6 Hours Per Day (ICD-10-PCS; 2024-02-25)
PROC: 5A1D70Z Performance of Urinary Filtration, Intermittent, Less than 6 Hours Per Day (ICD-10-PCS; 2024-02-27)
PROC: 5A1D70Z Performance of Urinary Filtration, Intermittent, Less than 6 Hours Per Day (ICD-10-PCS; 2024-02-29)
PROC: 0BC38ZZ Extirpation of Matter from Right Main Bronchus, Via Natural or Artificial Opening Endoscopic (ICD-10-PCS; 2024-02-29)
PROC: 0B110F4 Bypass Trachea to Cutaneous with Tracheostomy Device, Open Approach (ICD-10-PCS; 2024-03-01)
PROC: 5A1D70Z Performance of Urinary Filtration, Intermittent, Less than 6 Hours Per Day (ICD-10-PCS; 2024-03-02)
PROC: 5A1D70Z Performance of Urinary Filtration, Intermittent, Less than 6 Hours Per Day (ICD-10-PCS; 2024-03-04)
PROC: 0B968ZZ Drainage of Right Lower Lobe Bronchus, Via Natural or Artificial Opening Endoscopic (ICD-10-PCS; 2024-03-05)
PROC: 5A1D70Z Performance of Urinary Filtration, Intermittent, Less than 6 Hours Per Day (ICD-10-PCS; 2024-03-05)
PROC: 0B9B8ZZ Drainage of Left Lower Lobe Bronchus, Via Natural or Artificial Opening Endoscopic (ICD-10-PCS; 2024-03-05)
PROC: 5A1D70Z Performance of Urinary Filtration, Intermittent, Less than 6 Hours Per Day (ICD-10-PCS; 2024-03-08)
PROC: 02HV33Z Insertion of Infusion Device into Superior Vena Cava, Percutaneous Approach (ICD-10-PCS; 2024-03-09)
PROC: B548ZZA Ultrasonography of Superior Vena Cava, Guidance (ICD-10-PCS; 2024-03-09)
PROC: 5A1D70Z Performance of Urinary Filtration, Intermittent, Less than 6 Hours Per Day (ICD-10-PCS; 2024-03-09)
PROC: 5A1D70Z Performance of Urinary Filtration, Intermittent, Less than 6 Hours Per Day (ICD-10-PCS; 2024-03-11)
PROC: 0DH63UZ Insertion of Feeding Device into Stomach, Percutaneous Approach (ICD-10-PCS; 2024-03-14)
PROC: 0DB68ZX Excision of Stomach, Via Natural or Artificial Opening Endoscopic, Diagnostic (ICD-10-PCS; 2024-03-14)
DX: A41.02 Sepsis due to Methicillin resistant Staphylococcus aureus (principal); J15.69 Pneumonia due to other Gram-negative bacteria; R65.21 Severe sepsis with septic shock; J15.212 Pneumonia due to Methicillin resistant Staphylococcus aureus; N18.6 End stage renal disease; J80 Acute respiratory distress syndrome; G92.8 Other toxic encephalopathy; I50.33 Acute on chronic diastolic (congestive) heart failure; I16.1 Hypertensive emergency; G93.1 Anoxic brain damage, not elsewhere classified; L03.115 Cellulitis of right lower limb; Z99.11 Dependence on respirator [ventilator] status; J44.0 Chronic obstructive pulmonary disease with (acute) lower respiratory infection; J44.1 Chronic obstructive pulmonary disease with (acute) exacerbation; N17.9 Acute kidney failure, unspecified; I13.2 Hypertensive heart and chronic kidney disease with heart failure and with stage 5 chronic kidney disease, or end stage renal disease; L03.116 Cellulitis of left lower limb; Z68.41 Body mass index [BMI] 40.0-44.9, adult; K76.0 Fatty (change of) liver, not elsewhere classified; I48.0 Paroxysmal atrial fibrillation; I71.43 Infrarenal abdominal aortic aneurysm, without rupture; E11.51 Type 2 diabetes mellitus with diabetic peripheral angiopathy without gangrene; Z20.822 Contact with and (suspected) exposure to COVID-19; E78.5 Hyperlipidemia, unspecified; E87.5 Hyperkalemia; N40.0 Benign prostatic hyperplasia without lower urinary tract symptoms; F17.200 Nicotine dependence, unspecified, uncomplicated; K29.70 Gastritis, unspecified, without bleeding; E11.22 Type 2 diabetes mellitus with diabetic chronic kidney disease; J43.9 Emphysema, unspecified; E66.01 Morbid (severe) obesity due to excess calories; Z79.82 Long term (current) use of aspirin; Z79.899 Other long term (current) drug therapy; Z99.2 Dependence on renal dialysis; Z79.4 Long term (current) use of insulin
CPT/HCPCS: 36415; 36569; 36600; 70450; 71045; 71260; 74018; 74177; 76937; 80048; 80053; 80061; 80202; 80307; 80320; 81001; 82140; 82565; 82570; 82805; 82962; 83036; 83605; 83735; 83880; 84100; 84132; 84300; 84443; 84484; 85007; 85025; 85027; 85379; 85610; 85730; 86703; 86850; 86900; 86901; 87040; 87070; 87077; 87081; 87086; 87186; 87205; 87340; 87426; 87804; 90935; 93005; 93306; 93886; 93970; 93971; 94003; 94640; 94667; 94668; 95819; 96365; 96366; 96367; 96368; 96372; 96375; 99291; A4618; G0378; J0692; J1100; J1450; J1642; J1815; J2185; J2250; J2470; J2704; J3480; J3490; J7060